=== PATIENT | female | born 1935 | race Caucasian/White ===

== ENCOUNTER 2019-11-04 22:13 | Inpatient (IN) | payer OTHER, MEDICARE ==
--- OUTSIDE RECORDS SUMMARY | 2019-11-04 22:16 | XMS REPORT ---
:1935 Author Organization [facility] t Address [address] [place] [address] Care Team Providers Name Role Phone Unavailable Unavailable Unavailable Problems This patient has no known problems. Allergies, Adverse Reactions, Alerts This patient has no known allergies or adverse reactions. Medications This patient has no known medications.
[2019-11-04] MEDS ORDERED: PROMETHAZINE INJ 25 MG/ML AMP ONE (22:53)
[2019-11-04] MEDS ORDERED: NA CHLORIDE 0.9% 1,000 ML ONE (22:54)
[2019-11-04 23:07] LABS: Absolute Lymphocytes (CBC) 1.6 K/uL (0.7-4.9); Basophils % 0.6 % (0-1.3); Hematocrit 43.1 % (36.0-45.0); Lymphocytes % 16.5 % (15.3-44.8); MPV 7.4 fL (7.6-11.3); RBC Red Blood Cell Count 4.92 M/uL (3.86-4.86)
[2019-11-04 23:24] LABS: Albumin 4.6 g/dL (3.4-5.0); Bilirubin Direct 0.2 mg/dL (0-0.2); Potassium 4.3 mmol/L (3.5-5.1); Protein, Total 9.1 g/dL (6.4-8.2)
[2019-11-05] MEDS ORDERED: FENTANYL CITR 100 MCG/2 ML ONE (01:07)
--- NOTE | 2019-11-05 01:52 | ER ---
Nurse's Notes [facility] Name: Adrienne Phelan Age: 84 yrs Sex: Female : 1935 Arrival Date: 11/04/2019 Time: 22:16 Bed 6 Private MD: Diagnosis: Small bowel obstruction Presentation: 11/03 22:24 Chief complaint: Patient states: N/V and abdominal cramping since last night. ll1 Coronavirus screen: Proceed with normal triage. Patient denies a cough. Patient denies shortness of breath or difficulty breathing. Patient denies measured and/or subjective temperature greater than 100.4F prior to today's visit. Patient denies travel on a cruise ship or to a country the [facility] currently lists as an affected area. Patient denies contact with known and/or suspected case of COVID-19. Ebola Screen: Patient denies travel to an Ebola-affected area in the 21 days before illness onset. Initial Sepsis Screen: Does the patient meet any 2 criteria? No. Patient's initial sepsis screen is negative. Does the patient have a suspected source of infection? No. Patient's initial sepsis screen is negative. Risk Assessment: Do you want to hurt yourself or someone else? Patient reports no desire to harm self or others. Onset of symptoms was November 03, 2019. 22:24 Method Of Arrival: Wheelchair ll1 22:24 Acuity: JASON 3 ll1 Historical: - Allergies: 22:27 PENICILLINS; ll1 22:27 Tetanus Vaccines and Toxoid; ll1 22:27 Codeine; ll1 - PMHx: 22:27 colostomy with reversal; Hypertension; cardiac stents 3; ll1 - Immunization history:: Adult Immunizations up to date. - Social history:: Smoking status: Patient denies any tobacco usage or history of. Patient uses alcohol, only on a social basis. Patient/guardian denies using street drugs. Screenin:10 Abuse screen: Denies threats or abuse. Nutritional screening: No deficits noted. tl2 Tuberculosis screening: No symptoms or risk factors identified. Fall Risk None identified. Assessment: 23:10 General: Appears in no apparent distress. uncomfortable, Behavior is anxious. Pain: tl2 Complains of pain in abdomen. Neuro: Level of Consciousness is awake, alert, obeys commands, Oriented to person, place, time, situation. Cardiovascular: Denies chest pain. Respiratory: Airway. GI: Abdomen is round Pt is actively vomiting bile, Abd is soft and non tender Reports lower abdominal pain, upper abdominal pain, flatulence, gaseousness, nausea, vomiting. : No signs and/or symptoms were reported regarding the genitourinary system. Derm: Skin is pink, warm \T\ dry. Vital Signs: 22:24 BP 106 / 62; Pulse 97; Resp 18; Temp 98.1; Pulse Ox 100% ; Weight 65.77 kg; Height 5 ll1 ft. 0 in. (152.40 cm); Pain 10/10; 23:54 BP 128 / 71; Pulse 92; Resp 22; Pulse Ox 96% on R/A; tl2 11/04 00:58 Pulse 85; Resp 22; Pulse Ox 96% on R/A; tl2 02:43 BP 123 / 77; Pulse 101; Resp 24; Pulse Ox 95% on R/A; tl2 03:21 BP 143 / 75; Pulse 102; Resp 20; Pulse Ox 97% on R/A; lp1 11/03 22:24 Body Mass Index 28.32 (65.77 kg, 152.40 cm) ll1 ED Course: 11/03 22:16 Patient arrived in ED. cl3 22:25 Triage completed. ll1 22:27 Arm band placed on Patient placed in an exam room, on a stretcher. ll1 22:34 Bianca Obando FNP-C is PHCP. snw 22:34 Pee Zhang MD is Attending Physician. snw 23:10 Patient has correct armband on for positive identification. Placed in gown. Bed in low tl2 position. Call light in reach. Side rails up X 1. 23:10 Inserted saline lock: 20 gauge in right antecubital area, using aseptic technique. tl2 Blood collected. 11/04 00:48 CT Abd/Pelvis - IV Contrast Only In Process Unspecified. EDMS 00:58 Shea Menezes RN is Primary Nurse. tl2 01:50 Princess Alexis MD is Hospitalizing Provider. snw 03:21 No provider procedures requiring assistance completed. Patient admitted, IV remains in lp1 place. Administered Medications: 11/03 22:59 Drug: Phenergan 6.25 mg Route: IVP; Site: right antecubital; tl2 22:59 Drug: NS 0.9% 1000 ml Route: IV; Rate: 75 ml/hr; Site: right antecubital; tl2 11/04 01:13 Drug: fentaNYL (PF) 25 mcg Route: IVP; Site: right antecubital; tl2 02:38 Drug: Cipro 400 mg Volume: 200 ml; Route: IVPB; Infused Over: 60 mins; Site: right tl2 antecubital; 02:38 Drug: Ativan 0.5 mg Route: IVP; Site: right antecubital; tl2 Outcome: 01:51 Decision to Hospitalize by Provider. snw 03:22 Condition: stable lp1 03:22 Instructed on the need for admit. 03:44 Admitted to Med/surg via stretcher, room 228, with chart, Report called to fermín Escalante RN 04:41 Patient left the ED. lp1 Signatures: Dispatcher [employer] EDMS Bianca Obando, BILINGUAL CASE MANAGER-C BILINGUAL CASE MANAGER-Csnw Radha Stone RN RN lp1 Shea Menezes, RN RN tl2 Rickie Vasquez cl3 Frances Vasquez, JUAN RN ll1
--- NOTE | 2019-11-05 01:52 | EDPHYS ---
Physician Documentation [facility] [place], [place] Name: Adrienne Phelan Age: 84 yrs Sex: Female : 1935 Arrival Date: 11/04/2019 Time: 22:16 Bed 6 Private MD: ED Physician Pee Zhang HPI: 11/03 22:36 This 84 yrs old Female presents to ER via Wheelchair with complaints of snw Vomiting, Abdominal Cramping. 22:36 The patient presents to the emergency department with nausea, vomiting. Onset: The snw symptoms/episode began/occurred suddenly, yesterday. Possible causes: unknown. Associated signs and symptoms: Pertinent positives: abdominal pain, belching, vomiting. Severity of symptoms: At their worst the symptoms were severe in the emergency department the symptoms are unchanged. The patient has not experienced similar symptoms in the past. It is unknown whether or not the patient has recently seen a physician. Historical: - Allergies: 22:27 PENICILLINS; ll1 22:27 Tetanus Vaccines and Toxoid; ll1 22:27 Codeine; ll1 - PMHx: 22:27 colostomy with reversal; Hypertension; cardiac stents 3; ll1 - Immunization history:: Adult Immunizations up to date. - Social history:: Smoking status: Patient denies any tobacco usage or history of. Patient uses alcohol, only on a social basis. Patient/guardian denies using street drugs. ROS: 22:36 Constitutional: Negative for fever, chills, and weight loss, Eyes: Negative for injury, snw pain, redness, and discharge, ENT: Negative for injury, pain, and discharge, Neck: Negative for injury, pain, and swelling, Cardiovascular: Negative for chest pain, palpitations, and edema, Respiratory: Negative for shortness of breath, cough, wheezing, and pleuritic chest pain, Back: Negative for injury and pain, : Negative for injury, bleeding, discharge, and swelling, MS/Extremity: Negative for injury and deformity, Skin: Negative for injury, rash, and discoloration, Neuro: Negative for headache, weakness, numbness, tingling, and seizure, Psych: Negative for depression, anxiety, suicide ideation, homicidal ideation, and hallucinations. 22:36 Abdomen/GI: Positive for abdominal pain, nausea and vomiting. Exam: 22:35 Constitutional: This is a well developed, well nourished patient who is awake, alert, snw and in no acute distress. Head/Face: Normocephalic, atraumatic. Eyes: Pupils equal round and reactive to light, extra-ocular motions intact. Lids and lashes normal. Conjunctiva and sclera are non-icteric and not injected. Cornea within normal limits. Periorbital areas with no swelling, redness, or edema. ENT: Nares patent. No nasal discharge, no septal abnormalities noted. Tympanic membranes are normal and external auditory canals are clear. Oropharynx with no redness, swelling, or masses, exudates, or evidence of obstruction, uvula midline. Mucous membranes moist. Neck: Trachea midline, no thyromegaly or masses palpated, and no cervical lymphadenopathy. Supple, full range of motion without nuchal rigidity, or vertebral point tenderness. No Meningismus. Chest/axilla: Normal chest wall appearance and motion. Nontender with no deformity. No lesions are appreciated. Cardiovascular: Regular rate and rhythm with a normal S1 and S2. No gallops, murmurs, or rubs. Normal PMI, no JVD. No pulse deficits. Respiratory: Lungs have equal breath sounds bilaterally, clear to auscultation and percussion. No rales, rhonchi or wheezes noted. No increased work of breathing, no retractions or nasal flaring. 22:35 Back: No spinal tenderness. No costovertebral tenderness. Full range of motion. Skin: Warm, dry with normal turgor. Normal color with no rashes, no lesions, and no evidence of cellulitis. MS/ Extremity: Pulses equal, no cyanosis. Neurovascular intact. Full, normal range of motion. Neuro: Awake and alert, GCS 15, oriented to person, place, time, and situation. Cranial nerves II-XII grossly intact. Motor strength 5/5 in all extremities. Sensory grossly intact. Cerebellar exam normal. Normal gait. Psych: Awake, alert, with orientation to person, place and time. Behavior, mood, and affect are within normal limits. 22:35 Abdomen/GI: Inspection: distension, Bowel sounds: diminished, Palpation: mild abdominal tenderness, projectile vomiting on exam. Vital Signs: 22:24 BP 106 / 62; Pulse 97; Resp 18; Temp 98.1; Pulse Ox 100% ; Weight 65.77 kg; Height 5 ll1 ft. 0 in. (152.40 cm); Pain 04/06; 23:54 BP 128 / 71; Pulse 92; Resp 22; Pulse Ox 96% on R/A; tl2 11/04 00:58 Pulse 85; Resp 22; Pulse Ox 96% on R/A; tl2 02:43 BP 123 / 77; Pulse 101; Resp 24; Pulse Ox 95% on R/A; tl2 03:21 BP 143 / 75; Pulse 102; Resp 20; Pulse Ox 97% on R/A; lp1 11/03 22:24 Body Mass Index 28.32 (65.77 kg, 152.40 cm) ll1 MDM: 11/03 22:38 Patient medically screened. snw 11/04 01:51 Data reviewed: vital signs, nurses notes, lab test result(s), radiologic studies. Data snw interpreted: Pulse oximetry: on room air is 96 %. Interpretation: normal. Counseling: I had a detailed discussion with the patient and/or guardian regarding: the historical points, exam findings, and any diagnostic results supporting the discharge/admit diagnosis, lab results, radiology results, the need for further work-up and treatment in the hospital. Physician consultation: Princess Alexis MD was called at 01:52, was contacted at 01:52, regarding admission, to the telemetry unit. 01:52 Physician consultation: Jacques Butler MD was called at 01:52, was contacted at 01:52, snw regarding consult, Dr. Butler accept pt in consult. 11/03 22:35 Order name: Basic Metabolic Panel; Complete Time: 23:33 snw 11/03 22:35 Order name: CBC with Diff; Complete Time: 23:25 snw 11/03 22:35 Order name: Creatinine for Radiology; Complete Time: 23:25 snw 11/03 22:35 Order name: Hepatic Function; Complete Time: 23:33 snw 11/03 22:35 Order name: Lipase; Complete Time: 23:33 snw 11/04 02:57 Order name: CBC with Automated Diff EDMS 11/04 02:57 Order name: CBC with Automated Diff EDMS 11/04 02:57 Order name: Comprehensive Metabolic Panel EDMS 11/04 02:57 Order name: Comprehensive Metabolic Panel EDMS 11/04 02:57 Order name: Magnesium EDMS 11/04 02:57 Order name: Magnesium EDMS 11/04 02:57 Order name: Phosphorus EDMS 11/04 02:57 Order name: Phosphorus EDMS 11/04 02:57 Order name: Protime (+INR) EDMS 11/03 22:35 Order name: IV Saline Lock; Complete Time: 22:59 snw 11/03 22:35 Order name: Labs collected and sent; Complete Time: 22:59 snw 11/03 22:35 Order name: NG Tube; Complete Time: 02:38 snw 11/03 22:35 Order name: CT Abd/Pelvis - IV Contrast Only snw 11/04 02:57 Order name: CONS Physician Consult EDMS 11/04 02:57 Order name: NPO EDMS 11/04 02:57 Order name: Protime (+INR) EDMS 11/04 02:57 Order name: PTT, Activated Partial Thromb EDMS 11/04 02:57 Order name: PTT, Activated Partial Thromb EDMS Administered Medications: 11/03 22:59 Drug: Phenergan 6.25 mg Route: IVP; Site: right antecubital; tl2 22:59 Drug: NS 0.9% 1000 ml Route: IV; Rate: 75 ml/hr; Site: right antecubital; tl2 11/04 01:13 Drug: fentaNYL (PF) 25 mcg Route: IVP; Site: right antecubital; tl2 02:38 Drug: Cipro 400 mg Volume: 200 ml; Route: IVPB; Infused Over: 60 mins; Site: right tl2 antecubital; 02:38 Drug: Ativan 0.5 mg Route: IVP; Site: right antecubital; tl2 Disposition: 11/05/19 01:51 Hospitalization ordered by Princess Alexis for Inpatient Admission. Preliminary diagnosis is Small bowel obstruction. - Bed requested for Telemetry/MedSurg (Inpatient). - Status is Inpatient Admission. lp1 - Condition is Stable. - Problem is new. - Symptoms are unchanged. Addendum: 11/06/2019 07:14 Co-signature as Attending Physician, Pee Zhang MD I agree with the assessment and m h7 plan of care. Signatures: Dispatcher [facility] Nancy Hernandez RN RN Bianca Durbin, FRICTION WELDING MACHINE OPERATOR-C FRICTION WELDING MACHINE OPERATOR-Csnw Radha Stone, RN RN lp1 Shea Menezes, RN RN tl2 Frances Vasquez, JUAN RN ll1 Pee Zhang MD MD mh7 Corrections: (The following items were deleted from the chart) 11/04 03:13 01:51 Hospitalization Ordered by Princess Alexis MD for Inpatient Admission. Preliminary mw diagnosis is Small bowel obstruction. Bed requested for Telemetry/MedSurg (Inpatient). Status is Inpatient Admission. Condition is Stable. Problem is new. Symptoms are unchanged. snw 04:41 03:13 11/05/2019 01:51 Hospitalization Ordered by Princess Alexis MD for Inpatient lp1 Admission. Preliminary diagnosis is Small bowel obstruction. Bed requested for Telemetry/MedSurg (Inpatient). Status is Inpatient Admission. Condition is Stable. Problem is new. Symptoms are unchanged. mw
[2019-11-05] MEDS ORDERED: LORazepam 2 MG/ML VIAL ONE (02:34)
[2019-11-05] MEDS ORDERED: CIPROFLOXACIN 400mg IV 400 MG/200 ML BAG IV ONE (02:35)
[2019-11-05] MEDS ORDERED: ACETAMINOPHEN 500 MG TAB PO PRN (02:53)
[2019-11-05] MEDS ORDERED: Levofloxacin500mg IV 500 MG/100 ML BAG IV SCH (03:00)
[2019-11-05 05:17] VITALS: BMI 28.3
[2019-11-05] MEDS: NA CHLORIDE 0.9% 1,000 ML IV SCH ×2 (05:19→13:00)
[2019-11-05] MEDS: METRONIDAZOLE 500mg IVPB 500 MG/100 ML BAG IV SCH ×3 (05:19→17:26)
[2019-11-05] MEDS: ONDANSETRON 4 MG/2 ML VIAL IV PRN (05:23)
[2019-11-05] MEDS: HYDROMORPHONE HCL 1 MG/ML INJ IV PRN ×2 (05:24→15:03)
[2019-11-05] MEDS: ENOXAPARIN 40 MG/0.4 ML SQ SCH (09:00)
--- NOTE | 2019-11-05 10:44 | P.HP ---
Certification for Inpatient Patient admitted to: Inpatient With expected LOS: >2 Midnights Patient will require the following post-hospital care: None Practitioner: I am a practitioner with admitting privileges, knowledge of patient current condition, hospital course, and medical plan of care. Services: Services provided to patient in accordance with Admission requirements found in Title 42 Section 412.3 of the Code of Federal Regulations Patient History Date of Service: 11/05/19 Reason for admission: SBO History of Present Illness: Patient is an 84-year-old female who came to the hospital with intractable nausea & vomiting. Patient has a history of abdominal surgery. Patient had extensive surgery. Patient has been having some issues over the last 24 hr with abdominal discomfort. Patient started having nausea and vomiting. This was projectile. Patient came to the emergency room and required NG tube. Patient's CT scan performed which revealed a transition point in the left anterior abdomen. There was a prior abdominal wall hernia in that region. Patient will be admitted to the hospital for small bowel obstruction. Continue NGT with low intermittent wall suctioning. General surgery consultation as well Allergies codeine [Codeine] Allergy (Verified 11/05/19 05:19) Nausea/Vomiting Penicillins Allergy (Verified 11/05/19 05:19) Nausea/Vomiting Tetanus Vaccines and Toxoid [Tetanus Vaccines & Toxoid] Allergy (Verified 11/05/19 05:19) Anaphylaxis Home Medications: Clopidogrel Bisulfate [Plavix] 75 mg PO DAILY 08/06/14 Atorvastatin Calcium [Lipitor] 80 mg PO BEDTIME 11/05/19 LORazepam [Lorazepam] 0.5 mg PO BID 11/05/19 Lisinopril [Zestril] 10 mg PO BEDTIME 11/05/19 Metoprolol Tartrate [Lopressor] 25 mg PO DAILY 11/05/19 - Past Medical/Surgical History Has patient received pneumonia vaccine in the past: Yes Diabetic: No -: heart stents x3 -: hypertensive -: bowel surgery -: colostomy reversal 2007 - Family History Father Family History: Reviewed- Non-Contributory - Social History Smoking Status: Never smoker Alcohol use: No CD- Drugs: No Place of Residence: Home Review of Systems 10-point ROS is otherwise unremarkable Physical Examination - Vital Signs Temperature: 98.2 F Blood Pressure: 132/69 Pulse: 87 Respirations: 18 Pulse Ox (%): 96 - Physical Exam General: Alert, In no apparent distress, Oriented x3 HEENT: Atraumatic, PERRLA, Mucous membr. moist/pink, EOMI, Sclerae nonicteric Neck: Supple, 2+ carotid pulse no bruit, No LAD, Without JVD or thyroid abnormality Respiratory: Clear to auscultation bilaterally, Normal air movement Cardiovascular: Regular rate/rhythm, Normal S1 S2, No murmurs Gastrointestinal: No guarding, Absent bowel sounds, Distended, Tenderness, Rebound Musculoskeletal: No clubbing, No swelling, No tenderness Integumentary: No rashes Neurological: Normal gait, Normal speech, Normal tone, Sensation intact, Cranial nerves 3-12 intact, Normal affect, Abnormal strength Lymphatics: No axilla or inguinal lymphadenopathy - Studies Laboratory Data (last 24 hrs) 11/04/19 22:58: Creatinine 1.18 11/04/19 22:58: WBC 9.9, Hgb 13.9, Hct 43.1, Plt Count 325 11/04/19 22:58: Sodium 133 L, Potassium 4.3, BUN 31 H, Creatinine 1.20, Glucose 141 H, Total Bilirubin 1.0, AST 24, ALT 21, Alkaline Phosphatase 88, Lipase 147 Assessment & Plan - Problems (Diagnosis) (1) SBO (small bowel obstruction) Current Visit: Yes Status: Acute (2) Hypertension Current Visit: Yes Status: Acute (3) Coronary artery disease Current Visit: Yes Status: Acute (4) History of intravascular stent placement Current Visit: Yes Status: Acute - Plan -management per surgery -DVT prophylaxis -IV hydration and IV antibiotics -NGT to LIWS -strict blood pressure and blood sugar control -monitor electrolytes and blood count closely -Dc Munoz catheter in 24-48 hrS -pain control -continue cardiac medications Discharge Plan: Home Plan to discharge in: Greater than 2 days - Advance Directives Does patient have a Living Will: No Does patient have a Durable POA for Healthcare: No - Code Status/Comfort Care Code Status Assessed: Yes Code Status: Full Code Critical Care: No Time Spent Managing PTS Care (In Minutes): 45
[2019-11-05] MEDS ORDERED: Levofloxacin500mg IV 500 MG/100 ML BAG IV ONE (15:00)
--- NOTE | 2019-11-05 16:02 | CON ---
Date of Consultation: 11/05/2019 Reason For Service: Small bowel obstruction. History Of Present Illness: Ms. Phelan is a female, known to have multiple surgeries in the abdomen , initially had a colectomy, partial, done in [place] due to diverticulitis. Patient had an ostomy. Then, patient had reversal of that ostomy and then subsequently had a midline incision for a large v entral hernia repair. She has been doing okay for the last year or so and now developed abdominal di stention and nausea for the last 24 hours. She says that she ate something different. She was eatin g vegetables and also a cantaloupe. Immediately after that, she started feeling bloated and this mor khurram she did not improve, so she came to the ER. She was admitted with bowel obstruction. She denie s any dysuria, hematuria, hematochezia, or melena. Denies any recent traveling out of the country. Denies any family member sick at home. Previous colonoscopies, patient has colonoscopy with biopsy t o be tubular adenoma. Review of Systems: Ten points otherwise unremarkable. Past Surgical History: As above. Family History: Kidney cancer and heart disease. Allergies: PENICILLIN AND CODEINE. Past Medical History: High cholesterol. Once again, multiple bowel surgeries, polyposis coli. Physical Examination: General: Patient is awake and alert. HEENT: Pupils are equal and reactive, anicteric. Nose with NG tube in place. Neck: Supple. Lungs: Bilateral breath sounds. Abdomen: Softly distended. No peritonitis. Mild generalized tenderness. Pelvis: Stable. Genitalia: Fair. Extremities: Good capillary refill. Rectal: Deferred. Laboratory Data: Blood work shows a WBC count of 9.2, hemoglobin of 13.9, potassium 4.3. CAT scan of the abdomen and pelvis shows small bowel obstruction. Plan: NG tube, ambulation, bowel rest, hydration. Patient understands the options of laparotomy, po ssible resection, possible ostomy in her case. With multiple abdominal surgeries, she understands th e complexity of the situation but it sometimes have to be done. At this moment, she wants to give a try to conservative treatment for the next 48-72 hours unless clinically she deteriorates. If not, t hen she is going to have to reconsider once again surgery, although complex, may be necessary. She u ashlee. MOHSEN Voice ID: [id number] Report ID: [id number]
[2019-11-05] MEDS ORDERED: LORazepam 2 MG/ML VIAL IV SCH (21:00)
[2019-11-05] MEDS: LORazepam 2 MG/ML VIAL IV PRN (21:01)
--- NOTE | 2019-11-05 21:26 | RAD REPORT ---
EXAM DESCRIPTION: CT ABDOMEN PELVIS WITH IV CONTRAST COMPARISON: None Indication: Abdominal pain TECHNIQUE: Multiple helical axial images were obtained through the abdomen and pelvis using intraven ous contrast. Coronal and sagittal reformatted images were obtained. All CT scans at this facility use dose modulation, iterative reconstruction, and/or weight-based dosi ng when appropriate to reduce radiation dose to as low as reasonably achievable. FINDINGS: Lung bases: Coronary artery atherosclerosis is noted. There is a 5 mm nodule in the right lower lobe (series 401, image 5). Liver: Homogenous attenuation is noted. Gallbladder/biliary: Appears unremarkable Pancreas: Unremarkable. No evidence of ductal enlargement. Spleen: Appears unremarkable. No splenomegaly. Adrenals: Unremarkable. Kidneys and ureters: No evidence of hydronephrosis. Normal enhancement. Subcentimeter hypodensity i n the mid pole of the right kidney is present too small to characterize. Bladder: Unremarkable. Pelvic organs: Unremarkable. Bowel: Multiple dilated loops of small bowel are demonstrated with fluid and air-fluid levels. There is an abrupt transition between dilated and decompressed small bowel loops in the left anterior abdom en in the region of left ventral abdominal wall hernia repair compatible with small bowel obstruction with fecalization of a loop of small bowel proximal to the transition point. No bowel wall thicken ing. Appendix is not well seen. Vasculature: Aortic atherosclerosis is demonstrated. There is a 3 cm infrarenal abdominal aortic aneu rysm. Peritoneum: No free air. There is trace ascites. Lymph nodes: Unremarkable. Soft tissues: There are changes of the left ventral abdominal wall hernia repair with mild protrusion of the hernia mesh and small bowel loops. Bones: Degenerative changes of the spine noted. IMPRESSION: 1. Findings compatible with small bowel obstruction with transition point in the left anterior abdome n at the site of prior abdominal wall hernia repair. 2. 3.0 cm abdominal aortic aneurysm. Recommend follow-up every 3 years. Reference: J Am Zoila Radiol 2 013;10:789-794. 3. Right lower lobe 5 mm nodule. For a high risk patient, optional followup chest CT in 1 year is rec ommended per Fleischner Society criteria. Electronically signed by: Francisco J Hood MD 11/05/2019 1:26 AM CDT Due to temporary technical issues with the PACS/Fluency reporting system, reports are being signed by the in house radiologist as a courtesy to ensure prompt reporting. The interpreting radiologist is f ully responsible for the content of the report.
[2019-11-06] MEDS: METRONIDAZOLE 500mg IVPB 500 MG/100 ML BAG IV SCH ×5 (00:14→23:30)
[2019-11-06] MEDS: ONDANSETRON 4 MG/2 ML VIAL IV PRN (01:17)
[2019-11-06] MEDS: HYDROMORPHONE HCL 1 MG/ML INJ IV PRN ×3 (01:19→17:53)
[2019-11-06] MEDS: NA CHLORIDE 0.9% 1,000 ML IV SCH ×4 (01:28→21:26)
[2019-11-06 05:49] LABS: Absolute Lymphocytes (CBC) 1.2 K/uL (0.7-4.9); Basophils % 0.4 % (0-1.3); Hematocrit 37.3 % (36.0-45.0); MPV 7.1 fL (7.6-11.3); RBC Red Blood Cell Count 4.26 M/uL (3.86-4.86)
[2019-11-06 06:02] LABS: Albumin 3.7 g/dL (3.4-5.0); Bilirubin Total 0.9 mg/dL (0.2-1.0); Magnesium 2.1 mg/dL (1.8-2.4); Phosphorus 3.9 mg/dL (2.5-4.9); Potassium 4.4 mmol/L (3.5-5.1)
[2019-11-06 06:09] LABS: Protime INR 1.18
[2019-11-06 06:38] LABS: Platelet Estimate ADEQ
[2019-11-06 06:39] LABS: Blood Morphology Comment NOT SEEN (NOT SEEN)
--- NOTE | 2019-11-06 08:38 | RAD REPORT ---
EXAM DESCRIPTION: RAD - Abdomen Single View - 11/06/2019 6:17 am CLINICAL HISTORY: f/u SBO Pain COMPARISON: Abdomen Pelvis W Contrast dated 11/05/2019 FINDINGS: Several fluid-filled small bowel loops suspected however bowel obstruction pattern appears improved since prior study. Tip of the enteric tube is in the stomach. Contrast is present in the ur inary bladder. No free air seen. No fracture. IMPRESSION: Moderate improvement in small bowel obstruction pattern since comparative CT scan.
[2019-11-06] MEDS: ENOXAPARIN 40 MG/0.4 ML SQ SCH (08:43)
--- NOTE | 2019-11-06 12:29 | P.PN ---
Subjective Date of Service: 11/06/19 Chief Complaint: SBO Subjective: Improving <Jason Pacheco Last Filed: 11/06/19 12:22> Date of Service: 11/06/19 Subjective: Other (Patient doing better. Less pain noted no bowel movement or passage of gas.) <Tez Gupta Last Filed: 11/06/19 17:19> Review of Systems General: Unremarkable Eyes: Unremarkable ENT: Unremarkable Respiratory: Unremarkable Cardiovascular: Unremarkable Gastrointestinal: Abdominal Pain, Distention Genitourinary: Unremarkable Integumentary: Unremarkable Neurological: Unremarkable <Jason Pacheco Filed: 11/06/19 12:22> Physical Examination - Vital Signs Temperature: 98.2 F Blood Pressure: 132/69 Pulse: 87 Respirations: 18 Pulse Ox (%): 96 - Physical Exam General: Alert, In no apparent distress, Oriented x3 HEENT: Atraumatic, Normocephalic Neck: Supple Respiratory: Clear to auscultation bilaterally, Normal air movement Capillary refill: <2 Seconds Gastrointestinal: Hypoactive, Distended, Tenderness Neurological: Normal tone <Jason Pacheco Filed: 11/06/19 12:22> - Physical Exam Cardiovascular: Normal pulses, Regular rate/rhythm Gastrointestinal: Hypoactive, Distended Neurological: Normal speech, Normal strength at 5/5 x4 extr, Normal affect Other Physical/Emotional Findings: Patient seen and examined with nurse practitioner. - Studies Medications List Reviewed: Yes <Tez Gupta Last Filed: 11/06/19 17:19> Assessment & Plan Discharge Plan: Home Plan to discharge in: 72 Hours Physician Review Additional Text: Assessment Small bowel obstruction with history of multiple abdominal surgeries Hypertension Coronary artery disease Plan Small bowel obstruction with history of multiple abdominal surgeries- patient is to maintain her NPO status at this time, NG tube in place to low intermittent suction. IV hydration in place. General surgery has been consulted. KUB from this morning shows moderate improvement in patient's small-bowel obstruction, plan is to have a small bowel series tomorrow morning. Will continue to monitor this closely. Patient would much prefer to manage not operatively if at all possible. Patient has not passed any gas or had a bowel movement at this time. Will turn patient's case over to the hospitalist team tomorrow. Continue to DVT prophylaxis. Await further input from general surgery this time. Hypertension- will continue patient's home medications. Coronary artery disease- will continue patient's home medications. Time Spent Managing Pts Care (In Minutes): 55 <Jason Pacheco - Last Filed: 11/06/19 12:22> Discharge Plan: Home Plan to discharge in: 72 Hours Physician Review Additional Text: Patient seen and examined with nurse practitioner. Case discussed at length. Plan of care discussed. KUB ordered by surgery shows improvement. Surgery plans for GI series tomorrow to further evaluate. Patient is ambulating well. Patient overall improved but no passage of gas or stool. Anticipate improvement over the next 24-48 hr. Await further recommendations from surgery. <Tez Gupta - Last Filed: 11/06/19 17:19>
[2019-11-06] MEDS: Levofloxacin 250mg IV 250 MG/50 ML BAG IV SCH (16:59)
[2019-11-06] MEDS: LORazepam 2 MG/ML VIAL IV PRN (19:31)
[2019-11-07] MEDS: LORazepam 2 MG/ML VIAL IV PRN ×2 (02:38→20:14)
[2019-11-07 04:19] LABS: Absolute Lymphocytes (CBC) 1.1 K/uL (0.7-4.9); Basophils % 0.6 % (0-1.3); Hematocrit 33.6 % (36.0-45.0); Lymphocytes % 23.4 % (15.3-44.8); RBC Red Blood Cell Count 3.81 M/uL (3.86-4.86)
[2019-11-07 04:26] LABS: Potassium 3.6 mmol/L (3.5-5.1)
[2019-11-07] MEDS: METRONIDAZOLE 500mg IVPB 500 MG/100 ML BAG IV SCH ×3 (06:10→17:11)
[2019-11-07] MEDS: NA CHLORIDE 0.9% 1,000 ML IV SCH ×2 (06:24→15:00)
[2019-11-07] MEDS ORDERED: KCL 20 MEQ/100 mL IVPB 20 MEQ/100 ML BAG IV SCH (07:30)
[2019-11-07] MEDS ORDERED: ENOXAPARIN 30 MG/0.3 ML SQ SCH (09:00)
[2019-11-07] MEDS: HYDROMORPHONE HCL 1 MG/ML INJ IV PRN (10:52)
--- NOTE | 2019-11-07 14:14 | RAD REPORT ---
EXAM DESCRIPTION: RAD - Small Bowel Series - 11/07/2019 1:48 pm CLINICAL HISTORY: small bowel obstruction COMPARISON: Abdomen Single View dated 11/06/2019; Abdomen Pelvis W Contrast dated 11/05/2019 FINDINGS: Transportation Maintenance Supervisor film shows a nonspecific bowel gas pattern. No obstruction or free air. No suspiciou s calcifications. NG tube is in place. Tip is in the proximal body of the stomach. Side hole of the t ube is near the GE junction. Lower lumbar degenerative changes are present. Numerous surgical coils are present left mid abdomen a t the hernia site. Stomach is distended by the contrast but not dilated. No abnormal gastric fold pattern. No delay in t ransit of contrast into the small bowel. Dilated proximal small bowel loops are identified. Of the sm all bowel dilatation extends up into the left mid abdomen hernia site. Small bowel distal to the aggie ia site decompressed in size. The degree of dilatation is similar to the November [address] CT study. Oral contra st has reached the colon approximately 3 hours after initial administration. Contrast reached the mid descending colon at 3.5 hours. No intrinsic or extrinsic mass identifiable. Terminal ileum has mishel l appearance. Transit time to the colon is prolonged. IMPRESSION: Multiple dilated small bowel loops are present similar to the November 04 CT study. Dilatation extends from the ligament of Treitz to the left mid abdomen hernia site. Contrast does reach the colon at approximately 3 hours and the mid descending left-side of the colon at 3.5 hours.
[2019-11-07] MEDS: ENOXAPARIN 40 MG/0.4 ML SQ SCH (14:16)
[2019-11-07] MEDS: Levofloxacin 250mg IV 250 MG/50 ML BAG IV SCH (17:11)
--- NOTE | 2019-11-07 19:49 | PN ---
Date of Progress Note: 11/07/2019 Subjective: The patient seen and examined, chart reviewed, and case discussed with RN and Dr. Chris rizvi. Patient is doing better, had some small bowel movement, which was loose. Has passed some gas. Went for small bowel series today which showed contrast reached the colon. Medications: List reviewed. Code Status: Full. Physical Examination: Vital Signs: Temperature 97.8, heart rate 77, blood pressure 156/74, respirations 18, O2 of 95% on r oom air. General: Awake, alert, oriented x3. Elderly female, mild distress, ill appearing. Cardiovascular: S1, S2. Regular rate and rhythm. Peripheral pulses present. Respiratory: Moving air well bilaterally. No wheezing or stridor. Gastrointestinal: Abdomen is soft, nontender, nondistended. Positive bowel sounds. Extremities: No clubbing, cyanosis, or edema. Neurologic: Nonfocal. Laboratory Data: Sodium 143, potassium 3.6, chloride 111, CO2 of 24, BUN 31, creatinine 0.7, glucose 91, calcium 8.3, magnesium 2. WBC 4.6, H and H 11.2 and 33.6, platelets 238. INR 1.18. Small jayro l series shows multiple dilated small bowel loops present similar to November 12 study. The dilatation ex tends from ligament of Treitz to the left mid abdomen hernia site. Contrast does reach the colon in approximately 3 hours and mid descending left side of the colon at 3-1/2 hours. Assessment: 84-year-old female with, 1.Small-bowel obstruction with history of multiple abdominal surgeries. Patient is passing gas, had small bowel movement. The small bowel series was done today shows contrast into the colon. Case wa s discussed with Dr. Butler including the small bowel series results. He recommends a clear liquid diet for tonight and to see how the patient tolerates it. 2.Essential hypertension, stable. Continue home medications as appropriate. 3.Coronary artery disease, stable. 4.Deep venous thrombosis prophylaxis, Lovenox. Plan: Continue IV antibiotics. We will continue to monitor status. Continue clear liquids for now and reassess in a.m. SA/MODL Voice ID: [id number] Report ID: [id number]
[2019-11-07] MEDS: ONDANSETRON 4 MG/2 ML VIAL IV PRN (20:14)
[2019-11-08] MEDS: METRONIDAZOLE 500mg IVPB 500 MG/100 ML BAG IV SCH ×4 (00:03→17:27)
[2019-11-08] MEDS: NA CHLORIDE 0.9% 1,000 ML IV SCH ×3 (02:05→13:19)
[2019-11-08] MEDS: LORazepam 2 MG/ML VIAL IV PRN ×2 (04:48→21:13)
[2019-11-08 05:28] LABS: Absolute Lymphocytes (CBC) 0.9 K/uL (0.7-4.9); Basophils % 0.8 % (0-1.3); Hematocrit 31.6 % (36.0-45.0); Lymphocytes % 18.6 % (15.3-44.8); MPV 6.9 fL (7.6-11.3); RBC Red Blood Cell Count 3.61 M/uL (3.86-4.86)
[2019-11-08 05:48] LABS: BUN Blood Urea Nitrogen 15 mg/dL (7-18); Bicarbonate 23 mmol/L (21-32); Glucose Level 102 mg/dL (74-106); Magnesium 1.7 mg/dL (1.8-2.4); Sodium Level 141 mmol/L (136-145)
[2019-11-08] MEDS: POTASSIUM 25 MEQ EFFERV TAB PO ONE ×2 (06:41→06:55)
[2019-11-08] MEDS ORDERED: MAGNESIUM SULFATE 1 gm IVPB 1 GM/100 ML BAG IV ONE (09:00)
[2019-11-08] MEDS: ENOXAPARIN 40 MG/0.4 ML SQ SCH (09:42)
[2019-11-08] MEDS: KCL 20 MEQ/100 mL IVPB 20 MEQ/100 ML BAG IV SCH ×2 (09:42→13:20)
--- NOTE | 2019-11-08 16:32 | PN ---
Date of Progress Note: 11/08/2019 Subjective: Patient is seen and examined. Chart reviewed and case discussed with RN and Dr. Steff james. Patient was able to tolerate clear liquids yesterday. No nausea or vomiting. NG tube came out b ecause she was repeatedly sneezing. Medications: List reviewed. Physical Examination: Vital Signs: Temperature 97.9, heart rate 64, blood pressure 148/75, respirations 16, O2 of 98% on r oom air. General: Awake, alert, oriented x3. Elderly female, not in any acute distress. CV: S1, S2. Regular rate and rhythm. Peripheral pulses present. Respiratory: Moving air well bilaterally. No wheezing or stridor. Gastrointestinal: Abdomen is soft, nontender, nondistended. Hypoactive bowel sounds. Extremities: No clubbing, cyanosis, or edema. Neurologic: Nonfocal. Laboratory Data: Sodium 141, potassium 3, chloride 111, CO2 of 23, BUN 15, creatinine 0.54, glucose 102, calcium 7.8, magnesium 1.7. WBC 4.7, H and H 10.5 and 31.6, platelets 238, neutrophils 65%. Assessment: 84-year-old female with: 1.Small bowel obstruction with history of multiple abdominal surgeries. Patient has complicated abd ominal anatomy. Patient is passing gas and having small bowel movements. Small bowel series showed contrast into the colon and patient is tolerating clear liquids. Case was discussed with Dr. Steff james. He agrees with advancing to full liquids for now. We will continue with antiemetics and IV fluid s as well as IV antibiotics. 2.Essential hypertension, stable. 3.Coronary artery disease, [place] artery and [place] heart without angina, stable. 4.Hypokalemia. We will replace and monitor. 5.Hypomagnesemia. We will replace and monitor. 6.Deep venous thrombosis prophylaxis with Lovenox. Plan: Likely discharge in a.m. if continues to tolerate diet. We will likely advance to GI soft in the morning. SA/MODL Voice ID: [id number] Report ID: [id number]
[2019-11-08] MEDS: Levofloxacin 250mg IV 250 MG/50 ML BAG IV SCH (17:28)
[2019-11-08] MEDS: POTASSIUM CL SA 10 MEQ TAB PO ONE ×2 (19:42→20:21)
[2019-11-08] MEDS: ONDANSETRON 4 MG/2 ML VIAL IV PRN (20:22)
[2019-11-08] MEDS ORDERED: POTASSIUM 25 MEQ EFFERV TAB PO ONE (20:24)
[2019-11-08] MEDS ORDERED: KCL 20 MEQ/100 mL IVPB 20 MEQ/100 ML BAG IV SCH (22:00)
[2019-11-09] MEDS: METRONIDAZOLE 500mg IVPB 500 MG/100 ML BAG IV SCH ×3 (00:34→11:58)
[2019-11-09] MEDS: NA CHLORIDE 0.9% 1,000 ML IV SCH ×2 (00:41→05:36)
--- NOTE | 2019-11-09 03:48 | PN ---
Date of Progress Note: 11/08/2019 Reason For Service: Small bowel obstruction. History: Patient is doing better. Today she tolerated clear liquid diet. No nausea, no vomiting. Physical Examination: Chest: Clear. Abdomen: Soft and depressible. No guarding or rebound. Review of Systems: Ten-points otherwise unremarkable. Patient had a bowel movement today and some flatus. The small bowel series was interpreted by Dr. Brewer as multiple dilated small bowel loops. The con trast does reach the colon in about 3 hours. Also goes to the descending colon. Patient has history of colectomy in the past. Assessment: This is an 84-year-old patient with extensive intraabdominal surgery, feels better, pass ing flatus, having good bowel movement. She does not want surgery unless she is completely obstructe d, she is not. She feels better. Abdomen is nondistended. She wants to have a trial of diet. She understands that if that fails then she may have to reconsider once again surgical intervention, so t he diet will be advanced since she is tolerating diet right now. LOAN/MARIAN Voice ID: [id number] Report ID: [id number]
[2019-11-09 05:39] LABS: BUN Blood Urea Nitrogen 6 mg/dL (7-18); Bicarbonate 23 mmol/L (21-32); Glucose Level 107 mg/dL (74-106); Magnesium 1.6 mg/dL (1.8-2.4); Phosphorus 1.4 mg/dL (2.5-4.9); Potassium 3.7 mmol/L (3.5-5.1); Sodium Level 140 mmol/L (136-145)
[2019-11-09] MEDS ORDERED: MAGNESIUM SULFATE 1 gm IVPB 1 GM/100 ML BAG IV ONE (07:00)
[2019-11-09] MEDS: ENOXAPARIN 40 MG/0.4 ML SQ SCH (08:15)
[2019-11-09] MEDS ORDERED: POTASSIUM PHOS IN 0.9 % NACL 15 MMOL/250 ML BAG IV ONE (09:00)
--- NOTE | 2019-11-09 09:30 | PN ---
Date of Progress Note: 11/09/2019 Diagnosis: Small-bowel obstruction. Subjective: Patient feeling better. Passing flatus, having bowel movement. Today, she is trying a soft diet. No abdominal pain. No chest pain. No fever. No shortness of breath. Review of Systems: 10 points otherwise unremarkable. Physical Examination: Abdomen: Soft and depressible. No peritonitis. Extremities: Good capillary refill. Small-bowel series discussed with the patient. Plan: Patient wants to continue trying diet. She wants to go home. She is going to promise she is going to be on a pureed diet at home. in a week in the office. If she starts vomiting an d she does not tolerate diet, once again she has to reconsider the option of surgical intervention. LOAN/MARIAN Voice ID: [id number] Report ID: [id number]
[2019-11-09 10:02] VITALS: O2SAT 97
[2019-11-09 13:29] VITALS: BP 136/80; TEMP 98.3
--- NOTE | 2019-11-10 02:54 | DS ---
Date of Discharge: 11/09/2019 Consultants: Dr. Butler, General Surgery. Procedures: None. Admitting Diagnoses: 1.Small bowel obstruction. 2.Essential hypertension. 3.Coronary artery disease, [place] artery, [place] heart without angina. 4.History of bowel surgery. Discharge Diagnoses: 1.Small bowel obstruction with history of multiple abdominal surgeries, resolved. 2.Essential hypertension, stable. 3.Coronary artery disease, [place] artery, [place] heart without angina, stable. 4.Hypokalemia, replaced. 5.Hypomagnesemia, replaced. Hospital Course: The patient is an 84-year-old female with past medical history of heart disease, hy pertension, stents, comes in with intractable nausea and vomiting. She has had history of previous a bdominal surgeries, colostomy with reversal hernia and was found to have small-bowel obstruction on C AT scan. NG tube was placed and the patient was started on suctioning. Surgical consultation was ob tained, Dr. Butler evaluated the patient, he recommended conservative management. Patient's repeat x-ray showed improvement, she had a small bowel series. She was able to pass gas and contrast has r eached the colon. Patient was started on clear liquids and slowly advanced to pureed diet. Patient has bad teeth and does not have good dentures, is not really able to chew her food well. She was ins tructed to be on a pureed diet. The patient's pain improved. She was able to pass gas. Her electro lytes were corrected. Patient was then cleared for discharge and was sent home in a stable condition . Activity: As tolerated. Medications: As per medication reconciliation list. Followup: Follow up with primary care physician in 2-3 days. Follow up with surgeon, Dr. Luke morris 2 weeks. Return to ER for worsening condition. Diet: Puree. Activity: Ad marge. Physical Examination: General: Awake, alert, and oriented x3, not in any acute distress, elderly female. CV: S1, S2. Respiratory: Moving air well bilaterally. Abdomen: Abdomen is soft, nontender, nondistended. Positive bowel sounds. Extremities: No clubbing, cyanosis, or edema. Neurologic: Nonfocal. Total time spent discharging patient was 32 minutes. SA/MODL Voice ID: [id number] Report ID: [id number]
== END 2019-11-09 13:38 | disposition home or self-care (01) | DRG 390 ==
LOC: ER 22:13 → ERHOLD 11-05 02:58 → 2ND 11-05 03:42
PROVIDERS: ADMIT Hospitalist; ATTEND Family Medicine
DX: K56.609 Unspecified intestinal obstruction, unspecified as to partial versus complete obstruction (principal); Z88.5 Allergy status to narcotic agent; Z88.7 Allergy status to serum and vaccine; Z79.02 Long term (current) use of antithrombotics/antiplatelets; Z79.899 Other long term (current) drug therapy; Z95.5 Presence of coronary angioplasty implant and graft; I10 Essential (primary) hypertension; I25.10 Atherosclerotic heart disease of native coronary artery without angina pectoris; Z88.1 Allergy status to other antibiotic agents; E87.6 Hypokalemia; E83.42 Hypomagnesemia
CPT/HCPCS: 36415; 74018; 74177; 74250; 80048; 80053; 80076; 83690; 83735; 84100; 84132; 85025; 85610; 85730; 96374; 96375; 99285; J0744; J1170; J1650; J2405; J2550; J3010; J3475; J7030; Q9967

== ENCOUNTER 2020-08-13 01:40 | Emergency (ER) | payer OTHER, MEDICARE ==
[2020-08-13 03:27] LABS: Absolute Lymphocytes (CBC) 1.7 K/uL (0.7-4.9); Basophils % 0.8 % (0-1.3); Lymphocytes % 18.8 % (15.3-44.8); MPV 7.2 fL (7.6-11.3); RBC Red Blood Cell Count 4.17 M/uL (3.86-4.86)
[2020-08-13 03:28] LABS: Protime INR 0.91
[2020-08-13 03:44] LABS: ALT/SGPT 23 U/L (12-78); AST/SGOT 23 U/L (15-37); Albumin 3.8 g/dL (3.4-5.0); Alkaline Phosphatase 107 U/L (45-117); BUN Blood Urea Nitrogen 15 mg/dL (7-18); Bicarbonate 25 mmol/L (21-32); Bilirubin Direct < 0.1 mg/dL (0-0.2); Bilirubin Total 0.3 mg/dL (0.2-1.0); Glucose Level 108 mg/dL (74-106); Magnesium 1.6 mg/dL (1.8-2.4); NT PRO-BNP 98 pg/mL (<450); Potassium 4.3 mmol/L (3.5-5.1); Protein, Total 7.7 g/dL (6.4-8.2); Sodium Level 142 mmol/L (136-145); Troponin (Emerg Dept Use Only) < 0.02 ng/mL (0.0-0.045)
[2020-08-13] MEDS ORDERED: ONDANSETRON 4 MG/2 ML VIAL ONE ×2 (04:12→06:45)
--- NOTE | 2020-08-13 06:15 | ER ---
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 Coronavirus screen: Client denies travel out of the [place] in the last 14 days. Ebola Screen: Patient negative for fever greater than or equal to 101.5 degrees Fahrenheit, and additional compatible Ebola Virus Disease symptoms Patient denies exposure to infectious person. Patient denies travel to an Ebola-affected area in the 21 days before illness onset. No symptoms or risks identified at this time. Initial Sepsis Screen: Does the patient meet any 2 criteria? HR > 90 bpm. No. Patient's initial sepsis screen is negative. Does the patient have a suspected source of infection? No. Patient's initial sepsis screen is negative. Risk Assessment: Do you want to hurt yourself or someone else? Patient reports no desire to harm self or others. Onset of symptoms was August 13, 2020. 01:50 Method Of Arrival: EMS: [facility] em 01:50 Acuity: JASON 3 em Historical: - Allergies: 01:53 Codeine; em 01:53 PENICILLINS; em 01:53 Tetanus Vaccines and Toxoid; em - PMHx: 01:53 cardiac stents 3; colostomy with reversal; Hypertension; em - Immunization history:: Adult Immunizations up to date. - Social history:: Smoking status: Patient denies any tobacco usage or history of. Screenin:20 Abuse screen: Denies threats or abuse. Nutritional screening: No deficits noted. em Tuberculosis screening: No symptoms or risk factors identified. Fall Risk None identified. Assessment: 03:00 General: Appears in no apparent distress. Behavior is calm, cooperative, appropriate ll2 for age. Pain: Complains of pain in pt reports nausea. Neuro: Level of Consciousness is awake, alert, obeys commands, Oriented to person, place, time, situation. Cardiovascular: Patient's skin is warm and dry. Respiratory: Airway is patent Respiratory effort is even, unlabored, Respiratory pattern is regular, symmetrical. GI: Reports nausea. Derm: Skin is intact, is thin, Skin is pink, warm \T\ dry. Musculoskeletal: Circulation, motion, and sensation intact. Range of motion: intact in all extremities. 04:27 Reassessment: Patient and/or family updated on plan of care and expected duration. Pain ll2 level reassessed. Patient is alert, oriented x 3, equal unlabored respirations, skin warm/dry/pink. 05:17 Reassessment: Patient and/or family updated on plan of care and expected duration. Pain ll2 level reassessed. Patient is alert, oriented x 3, equal unlabored respirations, skin warm/dry/pink. 06:07 Reassessment: Patient and/or family updated on plan of care and expected duration. Pain ll2 level reassessed. Patient is alert, oriented x 3, equal unlabored respirations, skin warm/dry/pink. 07:00 Reassessment: RECD REPORT FROM ANTOINETTE MARTINEZ. 85YO WF, D/C COMPLETE, AWAITING TRANSPORT. bp Vital Signs: 01:50 BP 145 / 108; Pulse 101; Resp 18; Temp 97.8; Pulse Ox 97% on R/A; em 03:00 BP 183 / 95; Pulse 111; Resp 18; Pulse Ox 97% on R/A; ll2 04:00 BP 143 / 74; Pulse 96; Resp 20; Pulse Ox 97% on R/A; ll2 05:00 BP 150 / 81; Pulse 103; Resp 18; Pulse Ox 96% on R/A; ll2 ED Course: 01:44 Patient arrived in ED. sg 01:50 Helder Patel, JUAN is Primary Nurse. em 01:53 Triage completed. em 01:53 Arm band placed on. em 02:02 Luis Manuel Pacheco MD is Attending Physician. kdr 02:20 EKG done, by ED staff, reviewed by Luis Manuel Pacheco MD. em 03:36 XRAY Chest (1 view) In Process Unspecified. EDMS 06:40 No provider procedures requiring assistance completed. IV discontinued, intact, ll2 bleeding controlled, No redness/swelling at site. Pressure dressing applied. 06:42 Patient has correct armband on for positive identification. Bed in low position. Call ll2 light in reach. Side rails up X 1. Pulse ox on. NIBP on. 06:44 Primary Nurse role handed off by Helder Patel, JUAN 07:17 Jared Cheng, RN is Primary Nurse. bp Administered Medications: 04:00 Drug: Zofran (Ondansetron) 4 mg Route: IVP; Site: right forearm; ll2 05:18 Follow up: Response: No adverse reaction ll2 06:39 Drug: Zofran (Ondansetron) 4 mg Route: IVP; Site: right forearm; ll2 06:39 Drug: Ativan 0.5 mg Route: PO; ll2 Intake: 03:30 IV: 100ml; Total: 100ml. ll2 Outcome: 06:14 Discharge ordered by . kdr 06:40 Discharged to pt waiting in room for ride plans. ll2 06:40 Condition: stable 06:40 Discharge instructions given to patient, Instructed on discharge instructions, follow up and referral plans. Demonstrated understanding of instructions, follow-up care. 06:42 Patient left the ED. ll2 08:42 Patient left the ED. iw Signatures: Dispatcher [employer] Hemal Echols RN RN Luis Manuel Pacheco MD MD kdr Munoz, Edgar, RN RN Malka Alvarado RN RN Jared Cheng, RN Antoinette Pascal, JUAN RN ll2 Corrections: (The following items were deleted from the chart) 06:40 03:00 BP 143 / 74; Pulse 96bpm; Resp 20bpm; Pulse Ox 97% RA; ll2 ll2
--- NOTE | 2020-08-13 06:15 | EDPHYS ---
Physician Documentation [facility] Name: Adrienne Phealn Age: 85 yrs Sex: Female : 1935 Arrival Date: 08/13/2020 Time: 01:44 Bed 12 Private MD: ED Physician Luis Manuel Pacheco HPI: 08/13 02:44 This 85 yrs old Female presents to ER via EMS with complaints of chest kdr tightness and generalized anxiety. 02:44 The patient or guardian reports chest pain that is located primarily in the anterior kdr chest wall, bilaterally. 04:53 Onset: suddenly, just prior to arrival. The pain does not radiate. Associated signs and kdr symptoms: The patient has no apparent associated signs or symptoms. The chest pain is described as a heaviness, a pressure, Tightness. Duration: The patient or guardian reports a single episode, that is still ongoing, but improving. Modifying factors: The symptoms are alleviated by nothing. the symptoms are aggravated by nothing. Severity of pain: At its worst the pain was mild in the emergency department the pain is unchanged. The patient has not experienced similar symptoms in the past. The patient has not recently seen a physician. The patient states that when the power went out in her home that she panicked and then her chest began to get tight. This made her panic even more and the more she panicked, the more she had chest tightness and the more her chest was tight, the more she panicked. . Historical: - Allergies: 01:53 Codeine; em 01:53 PENICILLINS; em 01:53 Tetanus Vaccines and Toxoid; em - PMHx: 01:53 cardiac stents 3; colostomy with reversal; Hypertension; em - Immunization history:: Adult Immunizations up to date. - Social history:: Smoking status: Patient denies any tobacco usage or history of. ROS: 04:53 Constitutional: Negative for fever, chills, and weight loss, Eyes: Negative for injury, kdr pain, redness, and discharge, ENT: Negative for injury, pain, and discharge, Neck: Negative for injury, pain, and swelling, Respiratory: Negative for shortness of breath, cough, wheezing, and pleuritic chest pain, Abdomen/GI: Negative for abdominal pain, nausea, vomiting, diarrhea, and constipation, Back: Negative for injury and pain, : Negative for injury, bleeding, discharge, and swelling, MS/Extremity: Negative for injury and deformity, Skin: Negative for injury, rash, and discoloration, Neuro: Negative for headache, weakness, numbness, tingling, and seizure activity. Allergy/Immunology: Negative for hives, rash, and allergies, Endocrine: Negative for neck swelling, polydipsia, polyuria, polyphagia, and marked weight changes, Hematologic/Lymphatic: Negative for swollen nodes, abnormal bleeding, and unusual bruising. 04:53 Cardiovascular: Positive for chest pain, of the chest, Negative for edema, orthopnea, palpitations, paroxysmal nocturnal dyspnea. 04:53 Psych: Positive for anxiety, Lives alone. Exam: 04:53 Constitutional: This is a well developed, well nourished patient who is awake, alert, kdr and in no acute distress. Head/Face: Normocephalic, atraumatic. Eyes: Pupils equal round and reactive to light, extra-ocular motions intact. Lids and lashes normal. Conjunctiva and sclera are non-icteric and not injected. Cornea within normal limits. Periorbital areas with no swelling, redness, or edema. Neck: Trachea midline, no thyromegaly or masses palpated, and no cervical lymphadenopathy. Supple, full range of motion without nuchal rigidity, or vertebral point tenderness. No Meningismus. Chest/axilla: Normal chest wall appearance and motion. Nontender with no deformity. No lesions are appreciated. Cardiovascular: Regular rate and rhythm with a normal S1 and S2. No gallops, murmurs, or rubs. Normal PMI, no JVD. No pulse deficits. Respiratory: Lungs have equal breath sounds bilaterally, clear to auscultation and percussion. No rales, rhonchi or wheezes noted. No increased work of breathing, no retractions or nasal flaring. Abdomen/GI: Soft, non-tender, with normal bowel sounds. No distension or tympany. No guarding or rebound. No evidence of tenderness throughout. Back: No spinal tenderness. No costovertebral tenderness. Full range of motion. Skin: Warm, dry with normal turgor. Normal color with no rashes, no lesions, and no evidence of cellulitis. MS/ Extremity: Pulses equal, no cyanosis. Neurovascular intact. Full, normal range of motion. Neuro: Awake and alert, GCS 15, oriented to person, place, time, and situation. Cranial nerves II-XII grossly intact. Motor strength 5/5 in all extremities. Sensory grossly intact. Cerebellar exam normal. Normal gait. Psych: Awake, alert, with orientation to person, place and time. Behavior, mood, and affect are within normal limits. 06:33 ECG was reviewed by the Attending Physician. kdr Vital Signs: 01:50 BP 145 / 108; Pulse 101; Resp 18; Temp 97.8; Pulse Ox 97% on R/A; em 03:00 BP 183 / 95; Pulse 111; Resp 18; Pulse Ox 97% on R/A; ll2 04:00 BP 143 / 74; Pulse 96; Resp 20; Pulse Ox 97% on R/A; ll2 05:00 BP 150 / 81; Pulse 103; Resp 18; Pulse Ox 96% on R/A; ll2 MDM: 04:53 Data reviewed: vital signs, nurses notes, lab test result(s), EKG, radiologic studies. kdr 06:14 Patient medically screened. kdr 08/13 02:40 Order name: Basic Metabolic Panel kdr 08/13 02:40 Order name: CBC with Diff; Complete Time: 03:59 kdr 08/13 02:40 Order name: LFT's; Complete Time: 03:59 kdr 08/13 02:40 Order name: Magnesium; Complete Time: 03:59 kdr 08/13 02:40 Order name: NT PRO-BNP; Complete Time: 03:59 kdr 08/13 02:40 Order name: PT-INR; Complete Time: 03:59 kdr 08/13 02:40 Order name: Troponin (emerg Dept Use Only); Complete Time: 03:59 kdr 08/13 02:40 Order name: XRAY Chest (1 view) kdr 08/13 02:40 Order name: EKG; Complete Time: 02:40 kdr 08/13 02:40 Order name: Basic Metabolic Panel; Complete Time: 03:59 EDMS 08/13 04:00 Order name: Troponin (emerg Dept Use Only): Draw two hours aftaer initial draw; kdr Complete Time: 06:13 08/13 02:40 Order name: Cardiac monitoring; Complete Time: 02:47 kdr 08/13 02:40 Order name: EKG - Nurse/Tech; Complete Time: 02:47 kdr 08/13 02:40 Order name: IV Saline Lock; Complete Time: 06:31 [facility] 08/13 02:40 Order name: Labs collected and sent; Complete Time: 06:31 [facility] 08/13 02:40 Order name: O2 Per Protocol; Complete Time: :47 [facility] 08/13 02:40 Order name: O2 Sat Monitoring; Complete Time: 02:47 [facility] EC:33 Rate is 104 beats/min. Rhythm is regular, Sinus tachycardia with No ectopy. QRS [place] is kdr Normal. OR interval is normal. QT interval is normal. Clinical impression: NSR w/ Non-specific ST/T Changes and Sinus tachycardia. Administered Medications: 04:00 Drug: Zofran (Ondansetron) 4 mg Route: IVP; Site: right forearm; ll2 05:18 Follow up: Response: No adverse reaction ll2 06:39 Drug: Zofran (Ondansetron) 4 mg Route: IVP; Site: right forearm; ll2 06:39 Drug: Ativan 0.5 mg Route: PO; ll2 Disposition: 08/13/20 06:14 Discharged to Home. Impression: Shortness of breath, Anxiety disorder, unspecified, Palpitations. - Condition is Stable. - Discharge Instructions: Shortness of Breath, [id number], Panic Attacks, [id number]-[id number], Palpitations, [id number], Generalized Anxiety Disorder. - Medication Reconciliation Form, Thank You Letter form. - Follow up: Private Physician; When: 2 - 3 days; Reason: If symptoms return, Further diagnostic work-up, Recheck today's complaints, Continuance of care, Re-evaluation by your physician. - Problem is new. - Symptoms have improved. Signatures: Dispatcher [employer] [facility] Luis Manuel Pacheco MD MD kdr Munoz, Edgar RN RN em Malka Rodriguez RN RN Antoinette Contreras RN RN ll2 Corrections: (The following items were deleted from the chart) 06:42 06:14 08/13/2020 06:14 Discharged to Home. Impression: Shortness of breath; Anxiety ll2 disorder, unspecified; Palpitations. Condition is Stable. Forms are Medication Reconciliation Form, Thank You Letter, Antibiotic Education, Prescription Opioid Use. Follow up: Private Physician; When: 2 - 3 days; Reason: If symptoms return, Further diagnostic work-up, Recheck today's complaints, Continuance of care, Re-evaluation by your physician. Problem is new. Symptoms have improved. kdr 08:42 06:42 08/13/2020 06:14 Discharged to Home. Impression: Shortness of breath; Anxiety iw disorder, unspecified; Palpitations. Condition is Stable. Discharge Instructions: Shortness of Breath, [id number], Panic Attacks, Gelf-je-[id number], Palpitations, Izhb-fh-Kgic, Generalized Anxiety Disorder. Forms are Medication Reconciliation Form, Thank You Letter. Follow up: Private Physician; When: 2 - 3 days; Reason: If symptoms return, Further diagnostic work-up, Recheck today's complaints, Continuance of care, Re-evaluation by your physician. Problem is new. Symptoms have improved. ll2
[2020-08-13] MEDS ORDERED: LORAZEPAM 0.5 MG TABLET ONE (06:45)
[2020-08-13 06:47] VITALS: TEMP 97.8
[2020-08-13 06:50] VITALS: BP 150/81; O2SAT 96
--- NOTE | 2020-08-13 08:37 | RAD REPORT ---
EXAM DESCRIPTION: RAD - Chest Single View - 08/13/2020 3:37 am CLINICAL HISTORY: anxiety;Chest pain COMPARISON: Two-view chest June 2012 TECHNIQUE: AP portable chest image was obtained 08/13/2020 3:37 am . FINDINGS: No focal lung parenchymal process seen. Interstitial pattern matches comparison when adjus ting for shallow inspiration on the current examination. The nodular focus lateral mid right lung fie ld detailed on the 2013 study is not seen on this current examination. Heart and vasculature are normal. No measurable pleural effusion and no pneumothorax. Bilateral shou lder joint degenerative changes are present showing significant progression since 2013. No acute bone findings seen. No acute aortic finding. Patient has very dense carotid bulb calcifications substanti ally progressive from 2013. IMPRESSION: No acute cardiopulmonary process. Dense bilateral carotid bulb calcifications progressive from 2013.
--- NOTE | 2020-08-13 09:59 | EKG ---
Test Date: 2020-08-13 Test Time: 02:16:44 Branch Maker: ANGELES MEASUREMENT RESULTS: Intervals: Rate: 104 AL: 136 QRSD: 72 QT: 340 QTc: 447 [place]: P: -4 AL: 136 QRS: 86 T: 5 INTERPRETIVE STATEMENTS: Sinus tachycardia Otherwise normal ECG Compared to ECG 01/30/2010 14:27:38 Sinus rhythm no longer present Electronically Signed On 08-13-20 09:59:22 [employer] SUPERVIS[employer] by Ryan Cuellar
== END 2020-08-13 08:42 | disposition home or self-care (01) ==
LOC: ER 01:40
DX: R07.89 Other chest pain (principal); R06.02 Shortness of breath; R00.2 Palpitations; F41.9 Anxiety disorder, unspecified; Z95.5 Presence of coronary angioplasty implant and graft; I10 Essential (primary) hypertension
CPT/HCPCS: 93005; 85025; 80048; 36415; 83735; 85610; 80076; 84484 ×2; 83880; 71045; 96374; 99284; J2405 ×2

== ENCOUNTER → 2023-08-09 | Emergency (ER) | payer OTHER, MEDICARE ==
[~2023-08-09] MED LIST: ASPIRIN 81 MG CHEWABLE TABLET ONE; DIAZEPAM 2 MG TABLET ONE; FUROSEMIDE 40 MG/4 ML VIAL ONE; HEPARIN 5000 UNIT/ML 1 ML VIAL ONE; HEPARIN/D5W 25,000 UNIT/500 ML BAG IV ONE; Levofloxacin 750mg IV 750 MG/150 ML BAG IV ONE
--- OUTSIDE RECORDS SUMMARY | 2023-08-09 03:35 | XMS REPORT | Continuity of Care Document ---
Author Name Unknown Address [address] [facility] [address] [place] [address] [facility] Address [address] [facility] [address] [place] [address] Care Team Providers Care Case Manager Name Role Phone Ta Perez MD Primary Care Physician [phone] KASIA MYERS Attending Clinician TA Wiggins Attending Clinician Unavailable Vibha Ambrose Cardiology Attending Clinician Unavailable Kasia Myers MD Attending Clinician [phone]- [phone] Doctor Unassigned, [place] Attending Clinician U Lily Velasquez RN Attending Clinician Unavailab MICHEAL Hancock Attending Clinician Unavailable John Wiley DO Attending Clinician [phone] Bharati Juarez DO Attending Clinician [phone] Micheal Ferrell MD Attending Clinician [phone] JESU RADFORD Attending Clinician Unavailable Jesu Radford MD Attending Clinician [phone] MUNIRA ELIAS Attending Clinician Unavailable MARILYN DENNY Attending Clinician Unavailabl e Radiology Attending Clinician Unavailable 1, [facility] Attending Clinician Unavailable KASIA MYERS Admitting Clinician Darcy Germain Admitting Clinician Unavailable BHARATI JUAREZ Admitting Clinician Unavailable Bharati Juarez DO Admitting Clinician JESU RADFORD Admitting Clinician Unavailable Payers Payer Name Policy Type Policy Number Effective Date Expirati on Date Source MEDICARE PART A \\T\\ B [id number] 2001 00:00:00 [facility] MEDICARE SUPPLEMENT [id number] 2015 00:00:00 MEDICARE PART A AND B [id number] 2001 00:00:00 Problems Condition Name Condition Details Condition Category Status Onset Date Resolution Date Last Treatment Date Treating Clinician Comments Source Pulmonary hypertensi on Pulmonary hypertensi on Disease Active 08-03 00:00: 00 [facility] Aortic stenosis Aortic stenosis Disease Active 08-02 00:00: 00 [facility] Essential hypertensi on Essential hypertensi on Disease Active 08-02 00:00: 00 [facility] Dyslipidem ia Dyslipidem ia Disease Active 08-02 00:00: 00 [facility] (HFpEF) heart failure with preserved ejection fraction (HFpEF) heart failure with preserved ejection fraction Disease Active 08-02 00:00: 00 [facility] CHF NYHA class II (symptoms with moderately strenuous activities ), unspecifie d failure chronicity , unspecifie d type CHF NYHA class II (symptoms with moderately strenuous activities ), unspecifie d failure chronicity , unspecifie d type Disease Active 2- 00:00: 00 [facility] Bronchopne umonia Bronchopne umonia Disease Active 2-04 00:00: 00 [facility] COPD with acute exacerbati on COPD with acute exacerbati on Disease Active 2- 00:00: 00 [facility] Allergic bronchitis with acute exacerbati on Allergic bronchitis with acute exacerbati on Disease Active 2- 00:00: 00 [facility] 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[place] coronary artery of [place] heart without angina pectoris Disease Active 03-04 00:00: 00 [facility] 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[place] coronary artery of kar[place] heart without angina pectoris Disease Active 03-04 00:00: 00 [facility] Mixed hyperlipid emia Mixed hyperlipid emia Disease Active 03-04 00:00: 00 [facility] Anxiety Anxiety Disease Active 03-04 00:00: 00 [facility] Allergies, Adverse Reactions, Alerts Allergy Name Allergy Type Status Severity Reaction(s) Onset Date Inactive Date Treating Clinician Comments Source diphenhy dramine DA Active MO HYPER 07-31 00:00: 00 [facility] No Known Allergie s DA Active U 07-29 00:00: 00 [facility] Penicill ins DA Active U UNKNOWN 07-29 00:00: 00 [facility] codeine DA Active U HYPER 07-29 00:00: 00 [facility] ANATOXIN DA Active MO SWELLING 07-29 00:00: 00 [facility] PENICILL IN DRUG INGREDI Active Rash 01-14 00:00: 00 [facility] Penicill in Propensi ty to adverse reaction s Active Rash 01-14 00:00: 00 [facility] PENICILL INS Drug Class Active High Anaphylaxis 01-12 00:00: 00 [facility] CODEINE DRUG INGREDI Active Med Other-Cmnt 01-12 00:00: 00 [facility] TETANUS TOXOID DRUG Active Unknown-Cmnt 01-12 00:00: 00 [facility] Codeine Propensi ty to adverse reaction s to drug Active Other - See comments 01-12 00:00: 00 Makes patient extremely hyper [facility] Penicill ins Propensi ty to adverse reaction s to drug Active Swelling 01-12 00:00: 00 [facility] Tetanus Toxoid Propensi ty to adverse reaction s Active Unknown - See comments 2016-0 7-18 00:00: 00 [facility] Social History Social Habit Start Date Stop Date Quantity Comments Source History SDOH Social Connections Get Together [facility] History SDOH Social Connections [facility] History SDOH Social Connections Membership [facility] History SDOH Social Connections Meetings [facility] Alcohol Frequency 2022-08-03 00:00:00 2022-08-03 00:00:00 1 [facility] History SDOH Alcohol Std Drinks 2022-08-03 00:00:00 2022-08-03 00:00:00 0 [facility] History SDOH Alcohol Binge 2022-08-03 00:00:00 2022-08-03 00:00:00 1 [facility] History SDOH Social Connections Phone 2022-08-03 00:00:00 2022-08-03 00:00:00 5 [facility] History SDOH Social Connections Living 2022-08-03 00:00:00 2022-08-03 00:00:00 4 [facility] History SDOH Physical Activity DPW 2022-08-03 00:00:00 2022-08-03 00:00:00 5 [facility] History SDOH Physical Activity MPS 2022-08-03 00:00:00 2022-08-03 00:00:00 3 [facility] History SDOH Financial 2022-08-03 00:00:00 2022-08-03 00:00:00 5 [facility] History SDOH Food Worry 2022-08-03 00:00:00 2022-08-03 00:00:00 1 [facility] History SDOH Food Scarcity 2022-08-03 00:00:00 2022-08-03 00:00:00 1 [facility] History SDOH Transport Med 2022-08-03 00:00:00 2022-08-03 00:00:00 2 [facility] History SDOH Transport Non-Med 2022-08-03 00:00:00 2022-08-03 00:00:00 2 [facility] Alcohol intake 2022-08-02 00:00:2022-08-02 00:00:00 0 /d [facility] Exposure to SARS-CoV-2 (event) 2022-07-22 00:00:00 2022-08-01 11:15:00 Not sure [facility] History of Social function 2020-10-24 00:00:00 2020-10-24 00:00:00 [facility] Cigarettes smoked current (pack per day) - Reported 2017-03-04 00:00:00 2017-03-04 00:00:00 [facility] Cigarette pack-years 2017-03-04 00:00:00 2017-03-04 00:00:00 [facility] Tobacco use and exposure 2017-03-04 00:00:00 2017-03-04 00:00:00 Smokeless tobacco non-user [facility] History of tobacco use 1974-03-04 00:00:00 Cigarette Smoker [facility] Sex Assigned At 1935 00:00:00 1935 00:00:00 [facility] Smoking Status Start Date Stop Date Source Tobacco smoking consumption unknown [facility] Ex-smoker 2017-03-04 00:00:00 2017-03-04 00:00:00 [facility] Medications Ordered Medication Name Filled Medication Name Start Date Stop Date Current Medication? Ordering Clinician Indication Dosage Frequency Signature (SIG) Comments Components Source barium sulfate (E-Z-HD BARIUM) 98 % oral suspension 680 g 2022-06 16:15: 00 06-10 16:13 :00 No [id number] 680g 680 g, Oral, ONCE, 1 dose, On Wed06/10/23 at 1015, Routine [facility] predniSONE 20 mg tablet 0 2-10 00:00: 00 08-12 05:59 :00 No [id number] 40mg Take 2 tablets by mouth in the morning for 4 days. [facility] predniSONE 20 mg tablet 0 2-10 00:00: 00 08-12 05:59 :00 No [id number] 40mg Take 2 tablets by mouth in the morning for 4 days. [facility] predniSONE 20 mg tablet 2-10 00:00: 00 08-12 05:59 :00 No [id number] 40mg Take 2 tablets by mouth in the morning for 4 days. [facility] clopidogrel (PLAVIX) 75 mg tablet 08-06 12:53: 46 Yes 75mg Take 75 mg by mouth daily. [facility] aspirin 81 mg EC tablet 08-06 12:53: 46 Yes 81mg Take 81 mg by mouth daily. [facility] Vit A,C,E-Zinc- Copper (ICAPS AREDS) 14,320226- 200 unit-mg-uni t Cap 08-06 12:53: 46 Yes 2{capsu le} Take 2 capsules by mouth daily. [facility] LORazepam 0.5 mg tablet 08-06 12:53: 46 Yes .5mg Take 0.5 mg by mouth 2 (two) times daily. [facility] atorvastati n 80 mg tablet 08-06 12:53: 46 Yes 80mg Take 80 mg by mouth at bedtime. [facility] clopidogrel (PLAVIX) 75 mg tablet 08-06 12:53: 46 Yes 75mg Take 75 mg by mouth daily. [facility] aspirin 81 mg EC tablet 08-06 12:53: 46 Yes 81mg Take 81 mg by mouth daily. [facility] Vit A,C,E-Zinc- Copper (ICAPS AREDS) 14,320226- 200 unit-mg-uni t Cap 08-06 12:53: 46 Yes 2{capsu le} Take 2 capsules by mouth daily. [facility] LORazepam 0.5 mg tablet 08-06 12:53: 46 Yes .5mg Take 0.5 mg by mouth 2 (two) times daily. [facility] atorvastati n 80 mg tablet 08-06 12:53: 46 Yes 80mg Take 80 mg by mouth at bedtime. [facility] clopidogrel (PLAVIX) 75 mg tablet 08-06 12:53: 46 Yes 75mg Take 75 mg by mouth daily. [facility] aspirin 81 mg EC tablet 08-06 12:53: 46 Yes 81mg Take 81 mg by mouth daily. [facility] Vit A,C,E-Zinc- Copper (ICAPS AREDS) 14,320-226- 200 unit-mg-uni t Cap 08-06 12:53: 46 Yes 2{capsu le} Take 2 capsules by mouth daily. [facility] LORazepam 0.5 mg tablet 08-06 12:53: 46 Yes .5mg Take 0.5 mg by mouth 2 (two) times daily. [facility] atorvastati n 80 mg tablet 08-06 12:53: 46 Yes 80mg Take 80 mg by mouth at bedtime. [facility] clopidogrel (PLAVIX) 75 mg tablet 08-06 12:53: 46 Yes 75mg Take 75 mg by mouth daily. [facility] aspirin 81 mg EC tablet 08-06 12:53: 46 Yes 81mg Take 81 mg by mouth daily. [facility] Vit A,C,E-Zinc- Copper (ICAPS AREDS) 14,320-226- 200 unit-mg-uni t Cap 08-06 12:53: 46 Yes 2{capsu le} Take 2 capsules by mouth daily. [facility] LORazepam 0.5 mg tablet 08-06 12:53: 46 Yes .5mg Take 0.5 mg by mouth 2 (two) times daily. [facility] atorvastati n 80 mg tablet 08-06 12:53: 46 Yes 80mg Take 80 mg by mouth at bedtime. [facility] clopidogrel (PLAVIX) 75 mg tablet 08-06 12:53: 46 Yes 75mg Take 75 mg by mouth daily. [facility] aspirin 81 mg EC tablet 08-06 12:53: 46 Yes 81mg Take 81 mg by mouth daily. [facility] Vit A,C,E-Zinc- Copper (ICAPS AREDS) 14,320-226- 200 unit-mg-uni t Cap 08-06 12:53: 46 Yes 2{capsu le} Take 2 capsules by mouth daily. [facility] LORazepam 0.5 mg tablet 08-06 12:53: 46 Yes .5mg Take 0.5 mg by mouth 2 (two) times daily. [facility] atorvastati n 80 mg tablet 08-06 12:53: 46 Yes 80mg Take 80 mg by mouth at bedtime. [facility] clopidogrel (PLAVIX) 75 mg tablet 08-06 12:53: 46 Yes 75mg Take 75 mg by mouth daily. [facility] aspirin 81 mg EC tablet 08-06 12:53: 46 Yes 81mg Take 81 mg by mouth daily. [facility] Vit A,C,E-Zinc- Copper (ICAPS AREDS) 14,320226- 200 unit-mg-uni t Cap 08-06 12:53: 46 Yes 2{capsu le} Take 2 capsules by mouth daily. [facility] LORazepam 0.5 mg tablet 08-06 12:53: 46 Yes .5mg Take 0.5 mg by mouth 2 (two) times daily. [facility] atorvastati n 80 mg tablet 08-06 12:53: 46 Yes 80mg Take 80 mg by mouth at bedtime. [facility] levoFLOXaci n (LEVAQUIN) tablet 500 mg 08-06 00:00: 00 Yes 500mg 500 mg, Oral, Q24H ABX, First dose on Wed08/05/22 at 1800, Until Discontinu ed, LUCIO
Re ason for Anti-Infec tive: Documented Infection< br>Documen kenneth Infection Site: Respirator y
Durat ion of Therapy: 7 days [facility] levoFLOXaci n 500 mg tablet 08-06 00:00: 00 08-10 05:59 :00 No [id number] 500mg Take 1 tablet by mouth every 24 (twenty-fo ur) hours for 3 days. [facility] levoFLOXaci n 500 mg tablet 08-06 00:00: 00 08-10 05:59 :00 No [id number] 500mg Take 1 tablet by mouth every 24 (twenty- ur) hours for 3 days. [facility] levoFLOXaci n 500 mg tablet 08-06 00:00: 00 08-10 05:59 :00 No [id number] 500mg Take 1 tablet by mouth every 24 (twenty- ur) hours for 3 days. [facility] sennosides- docusate sodium (SENOKOT-S) 8.6-50 mg per tablet 1 tablet 08-05 15:00: 00 Yes 1{tbl} 1 tablet, Oral, DAILY, First dose on Wed08/05/22 at 0900, Until Discontinu ed, [facility]ine [facility] polyethylen e glycol 3350 powder 17 g 08-05 15:00: 00 Yes 17g 17 g, Oral, DAILY, First dose on Wed08/05/22 at 0900, Until Discontinu ed, Routine [facility] levalbutero l (XOPENEX) nebulizer solution 0.63 mg 08-05 02:00: 00 Yes .63mg 0.63 mg, Inhalation , QID, First dose (after last modificati on) on Wed08/04/22 at 2000, Until Discontinu ed, Routine [facility] KCL (KLOR-CON M20) tablet 40 mEq 08-04 16:00: 00 08-04 17:26 :00 No 40meq 40 mEq, Oral, ONCE, 1 dose, On Wed08/04/22 at 1000, Routine [facility] traZODone (DESYREL) tablet 50 mg 08-04 06:30: 00 Yes 50mg 50 mg, Oral, QHS, First dose on Wed08/04/22 at 0030, Until Discontinu ed, Routine [facility] magnesium sulfate in water 4 gram/50 mL (8 %) IV Piggyback 4 g 08-04 01:15: 00 08-04 04:12 :00 No 4g 4 g, IV Piggyback, at 25 mL/hr Administer over 120 Minutes, ONCE, 1 dose, On Wed08/03/22 at 1915, Routine [facility] levoFLOXaci n in D5W (LEVAQUIN) 750 mg/150 mL Piggyback 750 mg 08-03 22:00: 00 08-05 22:51 :50 No 750mg 750 mg, IV Piggyback, Q48H, 5 doses, First dose on Wed08/03/22 at 1600, Last dose on Wed08/11/22 at 1600, Administer over 90 Minutes, 150 mL
Reas on for Anti-Infec tive: Empiric Therapy for Suspected Infection< br>Empiric Therapy Site: Respirator y
Durat ion of therapy: 5 days [facility] predniSONE (DELTASONE) tablet 40 mg 08-03 15:00: 00 Yes 40mg 40 mg, Oral, DAILY, First dose on Wed08/03/22 at 0900, Until Discontinu ed, Routine [facility] atorvastati n (LIPITOR) tablet 80 mg 08-03 03:00: 00 Yes 80mg 80 mg, Oral, QHS, First dose on Wed08/02/22 at 2100, Until Discontinu ed, Routine [facility] levalbutero l (XOPENEX) nebulizer solution 0.63 mg 08-03 02:00: 00 08-04 21:14 :31 No .63mg 0.63 mg, Inhalation , TID, First dose on Wed08/02/22 at 2000, Until Discontinu ed, Routine [facility] ipratropium (ATROVENT) 0.02 % nebulizer solution 0.5 mg 08-02 22:00: 00 Yes .5mg 0.5 mg, Inhalation , QID, First dose on Wed08/02/22 at 1600, Until Discontinu ed, Routine [facility] albuterol (PROVENTIL) 2.5 mg /3 mL (0.083 %) nebulizer solution 2.5 mg 08-02 22:00: 00 08-03 00:25 :23 No 2.5mg 2.5 mg, Inhalation , QID, First dose on 08/02/22 at 1600, Until Discontinu ed, Routine [facility] metoprolol succinate XL (TOPROL XL) tablet 25 mg 08-02 15:00: 00 Yes 25mg 25 mg, Oral, DAILY, First dose on 08/02/22 at 0900, Until Discontinu ed, Routine [facility] loratadine (CLARITIN) tablet 10 mg 08-02 15:00: 00 Yes 10mg 10 mg, Oral, DAILY, First dose on 08/02/22 at 0900, Until Discontinu ed, Routine [facility] lisinopriL (PRINIVIL,Z ESTRIL) tablet 10 mg 08-02 15:00: 00 Yes 10mg 10 mg, Oral, DAILY, First dose on 08/02/22 at 0900, Until Discontinu ed, Routine [facility] fluticasone propionate 50 mcg/actuati on nasal spray 2 Exchange 08-02 15:00: 00 Yes 2{spray } 2 Exchange, Nasal, DAILY, First dose on 08/02/22 at 0900, Until Discontinu ed, Routine [facility] clopidogreL (PLAVIX) 75 mg tablet 75 mg 08-02 15:00: 00 Yes 75mg 75 mg, Oral, DAILY, First dose on 08/02/22 at 0900, Until Discontinu ed, Routine [facility] aspirin EC tablet 81 mg 08-02 15:00: 00 Yes 81mg 81 mg, Oral, DAILY, First dose on 08/02/22 at 0900, Until Discontinu ed, Routine [facility] LORazepam (ATIVAN) tablet 0.5 mg 08-02 14:05: 55 Yes .5mg 0.5 mg, Oral, BIDPRN, Starting on 08/02/22 at 0805, Until Discontinu ed, Routine, Anxiety [facility] guaiFENesin 100 mg/5 mL solution 200 mg 08-02 06:42: 31 Yes 200mg 200 mg, Oral, Q4HPRN, Starting on 08/02/22 at 0042, Until Discontinu ed, Routine, Cough [facility] heparin (porcine) injection 5,000 Units 08-02 04:00: 00 Yes 5000U 5,000 Units, Subcutaneo us, Q8H, First dose on 08/01/22 at 2200, Until Discontinu ed, Routine [facility] montelukast (SINGULAIR) tablet 10 mg 08-02 03:12: 53 Yes 10mg 10 mg, Oral, [id number], Starting on 08/01/22 at 211, Until Discontinu ed, Routine, symptoms [facility] benzonatate (TESSALON PERLES) capsule 100 mg 08-02 03:11: 43 Yes 100mg 100 mg, Oral, TIDPRN, Starting on 08/01/22 at 2111, Until Discontinu ed, Routine, Cough [facility] furosemide (LASIX) injection 20 mg 08-02 02:00: 00 08-03 14:37 :31 No 20mg 20 mg, Slow IV Push, Q12H, First dose on 08/01/22 at 2000, Until Discontinu ed, Routine [facility] acetaminoph en (TYLENOL) tablet 650 mg 08-01 23:27: 25 Yes 650mg 650 mg, Oral, Q6HPRN, Starting on 08/01/22 at 1727, Until Discontinu ed, Routine, Pain (scale 1-3) [facility] NaCl 0.9% (NS) bolus infusion 1,000 mL 08-01 22:45: 00 08-02 00:08 :00 No 1000mL at 999 mL/hr, 1,000 mL, IV Piggyback, ONCE, 1 dose, On 08/01/22 at 1645, STAT [facility] levoFLOXaci n in D5W (LEVAQUIN) 750 mg/150 mL Piggyback 750 mg 08-01 21:30: 08-02 00:08 :00 No 750mg 750 mg, IV Piggyback, ONCE, 1 dose, On 08/01/22 at 1530, Administer over 90 Minutes, 150 mL
Reas on for Anti-Infec tive: Empiric Therapy for Suspected Infection< br>Empiric Therapy Site: Respirator y
Durat ion of therapy: 72 hours [facility] LORazepam (ATIVAN) injection 1 mg 08-01 20:45: 00 08-01 20:41 :00 No 1mg 1 mg, Slow IV Push, ONCE, 1 dose, On 08/01/22 at 1445, STAT [facility] ipratropium -albuteroL (DUONEB) 0.5 mg-3 mg(2.5 mg base)/3 mL nebulizer solution 3 mL 08-01 20:04: 00 08-01 20:05 :00 No 3mL 3 mL, Inhalation , ONCE NOW, 1 dose, On 08/01/22 at 1415, Routine [facility] methylpredn isolone sod succ (SOLU-MEDRO L) injection 125 mg 08-01 18:00: 00 08-02 21:36 :45 No 125mg 125 mg, Intravenou s, Q6H, First dose on 08/01/22 at 1200, Until Discontinu ed, Routine [facility] ipratropium -albuteroL (DUONEB) 0.5 mg-3 mg(2.5 mg base)/3 mL nebulizer solution 3 mL 08-01 18:00: 00 08-02 19:10 :08 No 3mL 3 mL, Inhalation , QID, First dose on 08/01/22 at 1200, Until Discontinu ed, Routine [facility] chlorphenir amine 4 mg tablet 08-01 00:00: 00 Yes [id number] 4mg Take 1 tablet by mouth every 6 (six) hours as needed for Allergies or Runny nose. [facility] chlorphenir amine 4 mg tablet 08-01 00:00: 00 Yes [id number] 4mg Take 1 tablet by mouth every 6 (six) hours as needed for Allergies or Runny nose. [facility] chlorphenir amine 4 mg tablet 0 2-04 00:00: 00 Yes [id number] 4mg Take 1 tablet by mouth every 6 (six) hours as needed for Allergies or Runny nose. [facility] chlorphenir amine 4 mg tablet 2022-0 2-04 00:00: 00 Yes [id number] 4mg Take 1 tablet by mouth every 6 (six) hours as needed for Allergies or Runny nose. [facility] chlorphenir amine 4 mg tablet 2022-0 2-04 00:00: 00 Yes [id number] 4mg Take 1 tablet by mouth every 6 (six) hours as needed for Allergies or Runny nose. [facility] chlorphenir amine 4 mg tablet 2-04 00:00: 00 Yes [id number] 4mg Take 1 tablet by mouth every 6 (six) hours as needed for Allergies or Runny nose. [facility] methylpredn isolone sod succ (SOLU-MEDRO L) injection 125 mg 07-07 18:15: 00 07-07 17:25 :00 No 125mg 125 mg, Slow IV Push, ONCE NOW, 1 dose, On Wed07/07/22 at 1215, [facility] albuterol (PROVENTIL) 2.5 mg /3 mL (0.083 %) nebulizer solution 2.5 mg 07-07 18:00: 00 07-07 16:33 :48 No 2.5mg 2.5 mg, Inhalation , QID, First dose on Wed07/07/22 at 1200, Until Discontinu ed, [facility] ipratropium (ATROVENT) 0.02 % nebulizer solution 0.5 mg 07-07 16:45: 00 07-07 16:12 :00 No .5mg 0.5 mg, Inhalation , ONCE, 1 dose, On Wed07/07/22 at 1045, [facility] loratadine- pseudoephed rine (CLARITIN-D 24 HOUR) 10-240 mg per 24 hr tablet 0 10 00:00: 00 Yes [id number] 1{tbl} Take 1 tablet by mouth in the morning. [facility] 07-07 00:00: 00 Yes [id number] 10mg Take 1 tablet by mouth every 24 (twenty-fo ur) hours as needed (symptoms) . [facility] albuterol 90 mcg/actuati on inhaler 07-07 00:00: 00 Yes [id number] 2{puff} Inhale 2 Puffs every 6 (six) hours as needed for Wheezing or Shortness of Breath. [facility] benzonatate 100 mg capsule 07-07 00:00: 00 Yes [id number] 100mg Take 1 capsule by mouth 3 (three) times daily as needed for Cough. [facility] loratadine- pseudoephed rine (CLARITIN-D 24 HOUR) 10-240 mg per 24 hr tablet 07-07 00:00: 00 Yes [id number] 1{tbl} Take 1 tablet by mouth in the morning. [facility] montelukast 10 mg tablet 07-07 00:00: 00 Yes [id number] 10mg Take 1 tablet by mouth every 24 (twenty-fo ur) hours as needed (symptoms) . [facility] albuterol 90 mcg/actuati on inhaler 07-07 00:00: 00 Yes [id number] 2{puff} Inhale 2 Puffs every 6 (six) hours as needed for Wheezing or Shortness of Breath. [facility] benzonatate 100 mg capsule 07-07 00:00: 00 Yes [id number] 100mg Take 1 capsule by mouth 3 (three) times daily as needed for Cough. [facility] loratadine- pseudoephed rine (CLARITIN-D 24 HOUR) 10-240 mg per 24 hr tablet 07-07 00:00: 00 Yes [id number] 1{tbl} Take 1 tablet by mouth in the morning. [facility] montelukast 10 mg tablet 07-07 00:00: 00 Yes [id number] 10mg Take 1 tablet by mouth every 24 (twenty-fo ur) hours as needed (symptoms) . [facility] albuterol 90 mcg/actuati on inhaler 07-07 00:00: 00 Yes [id number] 2{puff} Inhale 2 Puffs every 6 (six) hours as needed for Wheezing or Shortness of Breath. [facility] benzonatate 100 mg capsule 07-07 00:00: 00 Yes [id number] 100mg Take 1 capsule by mouth 3 (three) times daily as needed for Cough. [facility] loratadine- pseudoephed rine (CLARITIN-D 24 HOUR) 10-240 mg per 24 hr tablet 07-07 00:00: 00 Yes [id number] 1{tbl} Take 1 tablet by mouth in the morning. [facility] montelukast 10 mg tablet 07-07 00:00: 00 Yes [id number] 10mg Take 1 tablet by mouth every 24 (twenty-fo ur) hours as needed (symptoms) . [facility] albuterol 90 mcg/actuati on inhaler 07-07 00:00: 00 Yes [id number] 2{puff} Inhale 2 Puffs every 6 (six) hours as needed for Wheezing or Shortness of Breath. [facility] benzonatate 100 mg capsule 07-07 00:00: 00 Yes [id number] 100mg Take 1 capsule by mouth 3 (three) times daily as needed for Cough. [facility] loratadine- pseudoephed rine (CLARITIN-D 24 HOUR) 10-240 mg per 24 hr tablet 07-07 00:00: 00 Yes [id number] 1{tbl} Take 1 tablet by mouth in the morning. [facility] montelukast 10 mg tablet 07-07 00:00: 00 Yes [id number] 10mg Take 1 tablet by mouth every 24 (twenty-fo ur) hours as needed (symptoms) . [facility] albuterol 90 mcg/actuati on inhaler 07-07 00:00: 00 Yes [id number] 2{puff} Inhale 2 Puffs every 6 (six) hours as needed for Wheezing or Shortness of Breath. [facility] benzonatate 100 mg capsule 07-07 00:00: 00 Yes [id number] 100mg Take 1 capsule by mouth 3 (three) times daily as needed for Cough. [facility] loratadine- pseudoephed rine (CLARITIN-D 24 HOUR) 10-240 mg per 24 hr tablet 07-07 00:00: 00 Yes [id number] 1{tbl} Take 1 tablet by mouth in the morning. [facility] montelukast 10 mg tablet 07-07 00:00: 00 Yes [id number] 10mg Take 1 tablet by mouth every 24 (twenty-fo ur) hours as needed (symptoms) . [facility] albuterol 90 mcg/actuati on inhaler 07-07 00:00: 00 Yes [id number] 2{puff} Inhale 2 Puffs every 6 (six) hours as needed for Wheezing or Shortness of Breath. [facility] benzonatate 100 mg capsule 07-07 00:00: 00 Yes [id number] 100mg Take 1 capsule by mouth 3 (three) times daily as needed for Cough. [facility] loratadine- pseudoephed rine (CLARITIN-D 24 HOUR) 10-240 mg per 24 hr tablet 07-07 00:00: 00 Yes [id number] 1{tbl} Take 1 tablet by mouth in the morning. [facility] montelukast 10 mg tablet 07-07 00:00: 00 Yes [id number] 10mg Take 1 tablet by mouth every 24 (twenty-fo ur) hours as needed (symptoms) . [facility] methylPREDN ISolone 4 mg tablets 07-07 00:00: 00 Yes [id number] Take by mouth SEE-INSTRU CTIONS. follow package directions [facility] albuterol 90 mcg/actuati on inhaler 07-07 00:00: 00 Yes [id number] 2{puff} Inhale 2 Puffs every 6 (six) hours as needed for Wheezing or Shortness of Breath. [facility] benzonatate 100 mg capsule 07-07 00:00: 00 Yes [id number] 100mg Take 1 capsule by mouth 3 (three) times daily as needed for Cough. [facility] methylPREDN ISolone 4 mg tablets 07-07 00:00: 00 08-06 00:00 :00 No [id number] Take by mouth SEE-INSTRU CTIONS. follow package directions [facility] doxycycline hyclate 100 mg capsule 07-07 00:00: 00 07-18 05:59 :00 No [id number] 100mg Take 1 capsule by mouth in the morning and 1 capsule in the evening. Do all this for 10 days. [facility] No known medications 07-09 12:45: 54 No No known medication [facility] metoprolol succinate XL 25 mg 24 hr tablet 10-04 00:00: 00 Yes 25mg Take 25 mg by mouth daily. [facility] metoprolol succinate XL 25 mg 24 hr tablet 10-04 00:00: 00 Yes 25mg Take 25 mg by mouth daily. [facility] metoprolol succinate XL 25 mg 24 hr tablet 10-04 00:00: 00 Yes 25mg Take 25 mg by mouth daily. [facility] metoprolol succinate XL 25 mg 24 hr tablet 10-04 00:00: 00 Yes 25mg Take 25 mg by mouth daily. [facility] metoprolol succinate XL 25 mg 24 hr tablet 10-04 00:00: 00 Yes 25mg Take 25 mg by mouth daily. [facility] metoprolol succinate XL 25 mg 24 hr tablet 10-04 00:00: 00 Yes 25mg Take 25 mg by mouth daily. [facility] metoprolol succinate XL 25 mg 24 hr tablet 10-04 00:00: 00 Yes 25mg Take 25 mg by mouth daily. [facility] traMADoL 50 mg tablet 3-12 00:00: 00 Yes 50mg Take 50 mg by mouth 3 (three) times daily. [facility] traMADoL 50 mg tablet 3-12 00:00: 00 Yes 50mg Take 50 mg by mouth 3 (three) times daily. [facility] traMADoL 50 mg tablet 3-12 00:00: 00 Yes 50mg Take 50 mg by mouth 3 (three) times daily. [facility] traMADoL 50 mg tablet 3-12 00:00: 00 Yes 50mg Take 50 mg by mouth 3 (three) times daily. [facility] traMADoL 50 mg tablet 3 00:00: 00 Yes 50mg Take 50 mg by mouth 3 (three) times daily. [facility] traMADoL 50 mg tablet 3- 00:00: 00 Yes 50mg Take 50 mg by mouth 3 (three) times daily. [facility] traMADoL 50 mg tablet 3- 00:00: 00 Yes 50mg Take 50 mg by mouth 3 (three) times daily. [facility] Methylpredn isolone 4 mg tablet 3 00:00: 00 07-07 00:00 :00 No TAKE 6 TABLETS ON DAY 1 THEN TAKE 5 TABLETS ON DAY 2 THEN TAKE 4 TABLETS ON DAY 3 THEN TAKE 3 TABLETS ON DAY 4 THEN TAKE 2 TABLETS ON DAY 5 [facility] lisinopriL 10 mg tablet 2- 00:00: 00 Yes TAKE 1 TABLET BY MOUTH ONCE DAILY IN THE EVENING DIRECTED [facility] lisinopriL 10 mg tablet 2- 00:00: 00 Yes TAKE 1 TABLET BY MOUTH ONCE DAILY IN THE EVENING DIRECTED [facility] lisinopriL 10 mg tablet 2- 00:00: 00 Yes TAKE 1 TABLET BY MOUTH ONCE DAILY IN THE EVENING DIRECTED [facility] lisinopriL 10 mg tablet 2- 00:00: 00 Yes TAKE 1 TABLET BY MOUTH ONCE DAILY IN THE EVENING DIRECTED [facility] lisinopriL 10 mg tablet 2 00:00: 00 Yes TAKE 1 TABLET BY MOUTH ONCE DAILY IN THE EVENING DIRECTED [facility] lisinopriL 10 mg tablet 2 00:00: 00 Yes TAKE 1 TABLET BY MOUTH ONCE DAILY IN THE EVENING DIRECTED [facility] lisinopriL 10 mg tablet 2 00:00: 00 Yes TAKE 1 TABLET BY MOUTH ONCE DAILY IN THE EVENING DIRECTED [facility] fluticasone 50 mcg/actuati on nasal spray 03-18 00:00: 00 Yes [id number] 2{spray } Use 2 Sprays in each nostril daily. [facility] loratadine 10 mg tablet 03-18 00:00: 00 Yes [id number] 10mg Take 1 tablet by mouth daily. [facility] fluticasone 50 mcg/actuati on nasal spray 03-18 00:00: 00 Yes [id number] 2{spray } Use 2 Sprays in each nostril daily. [facility] loratadine 10 mg tablet 03-18 00:00: 00 Yes [id number] 10mg Take 1 tablet by mouth daily. [facility] fluticasone 50 mcg/actuati on nasal spray 03-18 00:00: 00 Yes [id number] 2{spray } Use 2 Sprays in each nostril daily. [facility] loratadine 10 mg tablet 03-18 00:00: 00 Yes [id number] 10mg Take 1 tablet by mouth daily. [facility] fluticasone 50 mcg/actuati on nasal spray 03-18 00:00: 00 Yes [id number] 2{spray } Use 2 Sprays in each nostril daily. [facility] loratadine 10 mg tablet 03-18 00:00: 00 Yes [id number] 10mg Take 1 tablet by mouth daily. [facility] fluticasone 50 mcg/actuati on nasal spray 03-18 00:00: 00 Yes [id number] 2{spray } Use 2 Sprays in each nostril daily. [facility] loratadine 10 mg tablet 03-18 00:00: 00 Yes [id number] 10mg Take 1 tablet by mouth daily. [facility] fluticasone 50 mcg/actuati on nasal spray 03-18 00:00: 00 Yes [id number] 2{spray } Use 2 Sprays in each nostril daily. [facility] loratadine 10 mg tablet 03-18 00:00: 00 Yes [id number] 10mg Take 1 tablet by mouth daily. [facility] fluticasone 50 mcg/actuati on nasal spray 03-18 00:00: 00 Yes [id number] 2{spray } Use 2 Sprays in each nostril daily. [facility] loratadine 10 mg tablet 03-18 00:00: 00 Yes [id number] 10mg Take 1 tablet by mouth daily. [facility] LORazepam 0.5 mg tablet 03-04 09:40: 58 Yes .5mg Take 0.5 mg by mouth 2 (two) times daily. [facility] atorvastati n 80 mg tablet 03-04 09:40: 58 Yes 80mg Take 80 mg by mouth at bedtime. [facility] clopidogrel (PLAVIX) 75 mg tablet 01-14 10:02: 40 Yes 75mg Take 75 mg by mouth daily. [facility] aspirin 81 mg EC tablet 01-14 10:02: 40 Yes 81mg Take 81 mg by mouth daily. [facility] Vit A,C,E-Zinc- Copper (ICAPS AREDS) 14,320-226- 200 unit-mg-uni t Cap 01-14 10:02: 40 Yes 2{capsu le} Take 2 capsules by mouth daily. [facility] Vital Signs Vital Name Observation Time Observation Value Comments S ource Respiratory rate 2022-08-06 13:56:00 18 /min [facility] Oxygen saturation in Arterial blood by Pulse oximetry 2022-08-06 13:56:00 99 /min [facility] Systolic blood pressure 2022-08-06 13:33:00 119 mm[Hg] [facility] Diastolic blood pressure 2022-08-06 13:33:00 90 mm[Hg] [facility] Heart rate 2022-08-06 13:33:00 97 /[facility] Body temperature 2022-08-06 13:33:00 36.22 Stacie [facility] Body weight 2022-08-06 09:40:00 67.994 kg [facility] BMI 2022-08-06 09:40:00 29.28 kg/m2 [facility] Body height 2022-08-02 04:00:00 152.4 cm [facility] Systolic blood pressure 2022-07-07 17:46:00 105 mm[Hg] [facility] Diastolic blood pressure 2022-07-07 17:46:00 61 mm[Hg] [facility] Heart rate 2022-07-07 17:46:00 98 /min [facility] Respiratory rate 2022-07-07 17:46:00 20 /min [facility] Oxygen saturation in Arterial blood by Pulse oximetry 2022-07-07 17:46:00 98 /min [facility] Body temperature 2022-07-07 15:29:00 37.11 Stacie [facility] Body height 2022-07-07 15:29:00 149.9 cm [facility] Body weight 2022-07-07 15:29:00 68.04 kg [facility] BMI 2022-07-07 15:29:00 30.30 kg/m2 [facility] Procedures Procedure Date / Time Performed Performing Clinician Source FL BARIUM SWALLOW ESOPHAGUS 2023-06-10 15:42:00 Kasia Myers [facility] ASSIGNMENT OF BENEFITS 2023-06-10 15:06:13 Docto r Unassigned, [place] [facility] AUTHORIZATION FOR RELEASE OF PHI 2022-08-20 06:01:00 Doctor Unassigned, [place] [facility] PHOSPHORUS 2022-08-06 10:05:00 [facility] MAGNESIUM 2022-08-06 10:05:00 Micheal Ferrell [facility] BASIC METABOLIC PANEL (NA, K, CL, CO2, GLUCOSE, BUN, CREATININE, CA) 2022-08-06 10:05:00 Adri Castillo [facility] BASIC METABOLIC PANEL (NA, K, CL, CO2, GLUCOSE, BUN, CREATININE, CA) 2022-08-05 11:24:00 Vasile Mcdonald [facility] CBC WITH DIFF 2022-08-05 11:24:00 [facility] 2022-08-04 09:23:00 Vasile Mcdonald Uni [facility] BASIC METABOLIC PANEL (NA, K, CL, CO2, GLUCOSE, BUN, CREATININE, CA) 2022-08-04 09:23:00 Vasile Mcdonald [facility] CBC WITH DIFF 2022-08-04 09:23:00 Vasile Mcdonald [facility] N-TERMINAL PRO-BNP 2022-08-04 09:23:00 Shaun Mcdonald [facility] COVID-19 (ID NOW RAPID TESTING) 2022-08-03 21:12:00 Vasile Mcdonald [facility] LAB ONLY COVID INTERPRETATION 2022-08-03 21:12:00 Vasile Mcdonald [facility] POCT GLUCOSE (AUTOMATED) 2022-08-03 17:59:[facility] 2022-08-03 14:04:00 Taty Juarez [facility] MAGNESIUM 2022-08-03 09:47:00 Bharati Juarez [facility] BASIC METABOLIC PANEL (NA, K, CL, CO2, GLUCOSE, BUN, CREATININE, CA) 2022-08-03 09:47:00 Bharati Juarez [facility] CBC WITH DIFF 2022-08-03 09:47:00 Bharati Juarez [facility] N-TERMINAL PRO-BNP 2022-08-03 09:47:00 Eddie Ahuja [facility] TRANSTHORACIC ECHO (TTE) COMPLETE 2022-08-02 15:09:00 Bharati Juarez [facility] CT THORAX WO CONTRAST 2022-08-01 21:06:39 Ashish Wiley [facility] XR CHEST 1 VW 2022-08-01 18:32:02 Singer [facility] HB ECG ROUTINE & RHYTHM STRIP 2022-08-01 18:20:26 Singer [facility] TROPONIN I 2022-08-01 17:55:00 Singer [facility] COMP. METABOLIC PANEL ([id number]) 2022-08-01 17:55:00 Singer [facility] CBC WITH DIFF 2022-08-01 17:55:00 Singer [facility] N-TERMINAL PRO-BNP 2022-08-01 17:55:00 Singer [facility] CONSENT/REFUSAL FOR DIAGNOSIS AND TREATMENT 2022-08-01 17:07:49 Doctor Unassigned, [place] [facility] XR CHEST 1 VW 2022-07-07 16:51:29 Jesu Radford [facility] TROPONIN I 2022-07-07 16:01:00 [facility] COMP. METABOLIC PANEL ([id number]) 2022-07-07 16:01:00 Jesu Radford [facility] CBC WITH DIFF 2022-07-07 16:01:00 Jesu Radford [facility] PROTHROMBIN TIME / INR 2022-07-07 16:01:00 Ozzie Radford [facility] ACTIVATED PARTIAL THRMPLAS OSIEL 2022-07-07 16:01:00 Jesu Radford [facility] RAPID INFLUENZA A/B 2022-07-07 16:01:00 Ni Radford [facility] N-TERMINAL PRO-BNP 2022-07-07 16:01:00 Jesu Radford [facility] COVID-19 (ID NOW RAPID TESTING) 2022-07-07 16:01:00 Jesu Radford [facility] NOTICE OF PRIVACY PRACTICES 2022-07-07 15:22:56 Doctor Unassigned, [place] [facility] CONSENT/REFUSAL FOR DIAGNOSIS AND TREATMENT 2022-07-07 15:19:49 Doctor Unassigned, [place] [facility] Encounters Start Date/Time End Date/Time Encounter Type Admission Type Attending [facility] Care Facility Care Department Encounter ID Source 2022-02-19 11:44:08 Outpatient R KASIA KAMARA [facility] [id number] [facility] 2021-06-30 12:23:44 Outpatient [facility] [id number] [facility] 2021-01-28 14:02:50 Outpatient OSVALDO TA [facility] [id number] [facility] 2021-01-28 14:01:32 Outpatient [facility] [id number] [facility] 2023-08-30 10:00:00 2023-08-30 10:00:00 Outpatient [facility] [id number] [facility] 2023-08-30 09:00:00 2023-08-30 09:00:00 Outpatient [facility] [id number] [facility] 2023-07-31 05:26:00 2023-07-31 05:26:00 Outpatient RONAK BarraganalonzoVibha pang [facility] [id number] 94 [facility] 2023-06-10 09:06:24 2023-06-10 23:59:00 Outpatient KASIA COTTON [facility] [id number] [facility] 2023-06-10 09:06:24 2023-06-10 23:59:00 Hospital Encounter Kasia Kamara [facility] 1.840.114 350.1.13.10 4.2.7.2.686 [id number] [facility] 2023-06-10 00:00:00 2023-06-10 00:00:00 Orders Only Doctor Unassigned, [place] [facility] 1.840.114 350.1.13.10 4.2.7.2.686 [id number] [facility] 2023-06-09 00:00:00 2023-06-09 00:00:00 Outpatient R KASIA KAMARA [facility] [id number] [facility] 2022-08-20 00:00:00 2022-08-20 00:00:00 Orders Only Doctor Unassigned, [place] [facility] 1.0.114 350.1.13.10 4.2.7.2.686 [id number] [facility] 2022-08-07 00:00:00 2022-08-07 00:00:00 Transition of Care Lily Mckeon 1..114 350.1.13.10 4.2.7.2.686 [id number] [facility] 2022-08-01 11:24:00 2022-08-06 12:12:00 Inpatient X MICHEAL FERRELL [facility] [id number] [facility] 2022-08-01 11:24:00 2022-08-06 12:12:00 Hospital Encounter John Wiley, Micheal Rodriguez [facility] 1..114 350.1.13.10 4.2.7.2.686 [id number] [facility] 2022-07-07 09:30:00 2022-07-07 11:58:00 Emergency X JESU RADFORD [facility] ERT [id number] [facility] 2022-07-07 09:30:00 2022-07-07 11:58:00 Emergency Jesu Radford [facility] 1..114 350.1.13.10 4.2.7.2.686 [id number] [facility] 2022-02-27 08:15:00 2022-02-27 08:15:00 Outpatient R KASIA KAMARA [facility] [id number] [facility] 2022-01-26 14:40:00 2022-01-26 14:40:00 Outpatient Charlene JADAMUNIRA [facility] [id number] [facility] 2021-07-09 07:45:00 2021-07-09 08:33:53 Telephonic Encounter Ta Perez [facility] 1.2.840.114 350.1.13.58 9.2.7.2.686 [id number] [facility] 2020-10-24 09:30:00 2020-10-24 09:30:00 Outpatient Charlene MARILYN DENNY [facility] [id number] [facility] 2020-10-16 13:45:00 2020-10-16 13:45:00 Outpatient MARILYN WAKEFIELD [facility] [id number] [facility] 2019-03-10 00:00:00 2019-03-10 00:00:00 Orders Only Doctor Unassigned, [place] [facility] 1.2.840.114 350.1.13.10 4.2.7.2.686 [id number] 2019-03-08 11:41:44 2019-03-08 23:59:00 Hospital Encounter [facility] 1.2.840.114 350.1.13.10 4.2.7.2.686 [id number] 2019-03-08 11:35:43 2019-03-08 11:52:55 Box Toe Buffer Visit 1, [facility] 1.2.840.114 350.1.13.10 4.2.7.2.686 [id number] 2019-03-04 00:00:00 2019-03-04 00:00:00 Orders Only Doctor Unassigned, [place] [facility] 1.2.840.114 350.1.13.10 4.2.7.2.686 [id number] 2010-09-03 00:00:00 2010-09-03 11:51:48 Outpatient [facility] [id number] [facility] Results Test Description Test Time Test Comments Results Result Co mments Source LIPID PROFILE (CORONARY RISK)2023-07-31 06:32:00* Test Item Value Reference Range Interpretation Comme nts TRIGLYCERIDES (test code = TRIG) 100 MG/DL 0-150 N CHOLESTEROL (test code = CHOL) 199 MG/DL 133-200 N CHOLESTEROL/HDL RATIO (test code = CHOLHDL) 2.03 RATIO See_Comment RISK ASSOCIATED WITH CHOL/HDL RATIOS: RISK MALE FEMALE1/2 AVERAGE 3.43 3.27AVERAGE 4.97 4.442X AVERAGE 9.55 7.053X AVERAGE 23.39 11.04 NOTE THAT THE REFERENCE VALUE IS RELATED TO RISK LEVELS ASRECOMMENDED BY THE [facility]. [Automated message] The system which generated this result transmitted reference range: 0-. The reference range was not used to interpret this result as normal/abnormal. HDL CHOLESTEROL (test code = HDL) 98 MG/DL 40-59 H NON-HDL CHOLESTEROL (test code = NHDL) 101 mg/dL <130 LIPOPROTEIN LDL (test code = LDL) 95 MG/DL 0-129 N <100 [id number] 0 - 129 NEAR OPTIMAL/ABOVE [id number] - 159 [id number] - 189 HIGH>OR= 190 VERY HIGHNOTE THAT GUIDELINES ARE PROVIDED BY NATIONAL CHOLESTEROLEDUCATION PROGRAM ADULT TREATMENT PANEL III LDL/HDL (test code = LDL/HDL) 0.96 Ratio See_Comment L [Automated messa ge] The system which generated this result transmitted reference range: 1.48-3.22 Avg. The reference range was not used to interpret this result as normal/abnormal. [id number] 06:32:00* Test Item Value Reference Range Interpretation Comme nts MAGNESIUM (test code = MAG) 1.7 MG/DL 1.8-2.4 L PROTHROMBIN [id number] 06:15:00* Test Item Value Reference Range Interpretation Comme nts PT PATIENT (test code = PTP) 11.0 SECONDS 9.3-12.9 N INTERNATIONAL NORMAL RATIO (test code = INR) 0.98 INR Unit 0.8-1.2 N TARGET INR BY INDICATION Indication INR1. Prophylaxis of venous thrombosis 2.0 - 3.0 (orthopedic surgery), Prophylaxis of venous thrombosis (other than high-risk surgery), Treatment of Deep Vein Thrombosis/Pulmonary Embolism, Prevention of systemic embolism - Tissue heart valves, Acute Myocardial Infarction (to prevent systemic embolism), Valvular heart disease, Acute Myocardial Infarction (to prevent systemic embolism), Valvular heart disease, Atrial Fibrillation, Bileaflet mechanical valve in aortic position.2. Mechanical prosthetic valves (high risk), 2.5 - 3.5 Presence of Lupus Anticoagulant or Antiphospholipid Antibodies, Prevention of systemic embolism - Acute Myocardial Infarction (to prevent recurrent infarct). CBC W/AUTO [id number] 06:13:00* Test Item Value Reference Range Interpretation Comme nts WHITE BLOOD CELL (test code = WBC) 8.1 K/mm3 3.5-11.0 N RED BLOOD CELL (test code = RBC) 4.31 M/mm3 4.70-6.10 L HEMOGLOBIN (test code = HGB) 12.9 G/DL 10.4-14.9 N HEMATOCRIT (test code = HCT) 39.5 % 31.5-44.1 N MEAN CELL VOLUME (test code = MCV) 91.6 Fl 84.5-98.6 N MEAN CELL HGB (test code = MCH) 29.9 pg 27.0-34.2 N MEAN CELL HGB CONCETRATION (test code = MCHC) 32.7 G/DL 31.5-34.0 N RED CELL DISTRIBUTION WIDTH (test code = RDW) 14.6 SD 11.5-14.5 H PLATELET COUNT (test code = PLT) 249 K/mm3 150-450 N MEAN PLATELET VOLUME (test c ode = MPV) 8.80 fL 7.0-10.5 N NEUTROPHIL % (test code = NT%) 46.7 % 40-76 N IMMATURE GRANULOCYTE % (test code = IG%) 0.1 % 0.0-5.0 N LYMPHOCYTE % (test code = LY%) 39.5 % 20.5-51.1 N MONOCYTE % (test code = MO%) 10.1 % 1.7-9.3 H EOSINOPHIL % (test code = EO%) 2.7 % 0.0-6.0 N BASOPHIL % (test code = BA%) 0.9 % 0.0-2.0 N NUCLEATED RBC % (test code = NRBC%) 0.0 /100WBC% 0.0-1.0 N NEUTROPHIL # (test code = NT#) 3.8 K/mm3 1.8-7.6 N IMMATURE GRANULOCYTE # (test code = IG#) 0.01 x10 3/uL 0.00-0.03 N LYMPHOCYTE # (test code = LY#) 3.2 K/mm3 0.6-3.2 N MONOCYTE # (test code = MO#) 0.8 K/mm3 0.3-1.1 N EOSINOPHIL # (test code = EO#) 0.2 K/mm3 0.0-0.4 N BASOPHIL # (test code = BA#) 0.1 K/mm3 0.0-0.1 N NUCLEATED RBC # (test code = NRBC#) 0.0 K/mm3 0.0-0.1 N CBC WITH [id number] 15:00:57* Test Item Value Reference Range Interpretation Comme nts WBC (test code = 6690-2) 10.99 See_Comment [Automated CEDUa Balandras] The system which generated this result transmitted reference range: 4.30 - 11.10 10*3/?L. The reference range was not used to interpret this result as normal/abnormal. RBC (test code = 789-8) 3.84 See_Comment L [Automated CEDUa ge] The system which generated this result transmitted reference range: 3.93 - 5.25 10*6/?L. The reference range was not used to interpret this result as normal/abnormal. HGB (test code = 718-7) 11.2 g/dL 11.6-15.0 L HCT (test code = 4544-3) 33.2 % 35.7-45.2 L MCV (test code = 787-2) 86.5 fL 80.6-95.5 MCH (test code = 785-6) 29.2 pg 25.9-32.8 MCHC (test code = 786-4) 33.7 g/dL 31.6-35.1 RDW-SD (test code = 53592-5) 45.5 fL 39.0-49.9 RDW-CV (test code = 788-0) 14.4 % 12.0-15.5 PLT (test code = 777-3) 311 See_Comment [Automated CEDUa ge] The system which generated this result transmitted reference range: 166 - 358 10*3/?L. The reference range was not used to interpret this result as normal/abnormal. MPV (test code = 61508-8) 9.0 fL 9.5-12.9 L NRBC/100 WBC (test code = 1380131127) 0.0 See_Comment [Automated me ssage] The system which generated this result transmitted reference range: 0.0 - 10.0 /100 WBCs. The reference range was not used to interpret this result as normal/abnormal. NRBC x10^3 (test code = 9045966665) See_Comment [Automated messa ge] The system which generated this result transmitted reference range: 10*3/?L. The reference range was not used to interpret this result as normal/abnormal. GRAN MAT (NEUT) % (test code = 770-8) 57.4 % IMM GRAN % (test code = 7459508543) 5.70 % LYMPH % (test code = 736-9) 29.0 % MONO % (test code = 5905-5) 7.4 % EOS % (test code = 713-8) 0.2 % BASO % (test code = 706-2) 0.3 % GRAN MAT x10^3(ANC) (test code = 3859662434) 6.31 10*3/uL 1.88-7.09 IMM GRAN x10^3 (test code = 6107746788) 0.63 10*3/uL 0.00-0.06 H LYMPH x10^3 (test code = 731-0) 3.19 10*3/uL 1.32-3.29 MONO x10^3 (test code = 742-7) 0.81 10*3/uL 0.33-0.92 EOS x10^3 (test code = 711-2) 0.03-0.39 L BASO x10^3 (test code = 704-7) 0.03 10*3/uL 0.01-0.07 BANDS (test code = 8038040399) Increased A REACT LYMPHS (test code = 2713337522) Rare TOXIC CHANGES (test code = 803-7) Present A Lab Interpretation (test code = 10116-2) Abnormal [facility] METABOLIC PANEL (NA, K, CL, CO2, GLUCOSE, BUN, CREATININE, CA)2022-08-05 12:42:23* Test Item Value Reference Range Interpretation Comme nts NA (test code = 4587064998) 136 mmol/L 135-145 K (test code = 5801425439) 3.3 mmol/L 3.5-5.0 L CL (test code = 1474613731) 103 mmol/L 98-108 CO2 TOTAL (test code = 0638804673) 27 mmol/L 23-31 AGAP (test code = 1390126746) 6 2-16 BUN (test code = 9265180567) 34 mg/dL 7-23 H GLUCOSE (test code = 5531532672) 106 mg/dL 70-110 CREATININE (test code = 1791934325) 0.72 mg/dL 0.50-1.04 CALCIUM (test code = 0609640781) 8.3 mg/dL 8.6-10.6 L eGFR (test code = 0646544426) 76.8 mL/min/1.73m2 CHANO (test code = CHANO) Association of Glomerular Filtration Rate (GFR) and Staging of Kidney Disease* + --+ --+ ------+| GFR (mL/min/1.73 m2) ?| With Kidney Damage ?| ?Without Kidney Damage+ --------+ --------+ +| ?>90 ?| ?Stage one ?| ? Normal ?+ ---+ ---+ -------+| ?60-89 ?| ?Stage two ?| ? Decreased GFR ? + --+ --+ ------+| ?30-59 ?| ?Stage three ?| ? Stage three ? + --+ --+ ------+| ?15-29 ?| ?Stage four ? | ? Stage four ?+ ---+ ---+ -------+| ?<15 (or dialysis) ? ?| ?Stage five ? | ? Stage five ?+ ---+ ---+ -------+ *Each stage assumes the associated GFR level has been in effect for at least three months. ?Stages 1 to 5, with or without kidney disease, indicate chronic kidney disease. Notes: Determination of stages one and two (with eGFR >59mL/min/1.73 m2) requires estimation of kidney damage for at least three months as defined by structural or functional abnormalities of the kidney, manifested by either:Pathological abnormalities or Markers of kidney damage (including abnormalities in the composition of the blood or urine or abnormalities in imaging tests). Lab Interpretation (test code = 45125-4) Abnormal [facility] GLUCOSE (AUTOMATED)2022-08-03 22:56:06* Test Item Value Reference Range Interpretation Comme [facility] POCT GLU (test code = 4522188748) 127 mg/dL 70-110 H Lab Interpretation (test cod e = 29463-5) Abnormal [facility] GLUCOSE (AUTOMATED)2022-08-03 14:17:47* Test Item Value Reference Range Interpretation Comme [facility] POCT GLU (test code = 0155932542) 129 mg/dL 70-110 H Lab Interpretation (test cod e = 85452-4) Abnormal [facility] WITH OFOU9432-58-13 19:07:08* Test Item Value Reference Range Interpretation Comme nts WBC (test code = 6690-2) 9.15 See_Comment [Automated message] The system which generated this result transmitted reference range: 4.30 - 11.10 10*3/?L. The reference range was not used to interpret this result as normal/abnormal. RBC (test code = 789-8) 3.86 See_Comment L [Automated message] The system which generated this result transmitted reference range: 3.93 - 5.25 10*6/?L. The reference range was not used to interpret this result as normal/abnormal. HGB (test code = 718-7) 11.4 g/dL 11.6-15.0 L HCT (test code = 4544-3) 33.9 % 35.7-45.2 L MCV (test code = 787-2) 87.8 fL 80.6-95.5 MCH (test code = 785-6) 29.5 pg 25.9-32.8 MCHC (test code = 786-4) 33.6 g/dL 31.6-35.1 RDW-SD (test code = 81852-9) 45.9 fL 39.0-49.9 RDW-CV (test code = 788-0) 14.2 % 12.0-15.5 PLT (test code = 777-3) 252 See_Comment [Automated message] The system which generated this result transmitted reference range: 166 - 358 10*3/?L. The reference range was not used to interpret this result as normal/abnormal. MPV (test code = 77576-0) 9.0 fL 9.5-12.9 L NRBC/100 WBC (test code = 3856203176) 0.0 See_Comment [Automated message] The system which generated this result transmitted reference range: 0.0 - 10.0 /100 WBCs. The reference range was not used to interpret this result as normal/abnormal. NRBC x10^3 (test code = 3511775139) See_Comment [Automated message] The system which generated this result transmitted reference range: 10*3/?L. The reference range was not used to interpret this result as normal/abnormal. GRAN MAT (NEUT) % (test code = 770-8) 62.0 % IMM GRAN % (test code = 8865888882) 1.40 % LYMPH % (test code = 736-9) 20.7 % MONO % (test code = 5905-5) 13.4 % EOS % (test code = 713-8) 1.7 % BASO % (test code = 706-2) 0.8 % GRAN MAT x10^3(ANC) (test code = 7553167827) 5.67 10*3/uL 1.88-7.09 IMM GRAN x10^3 (test code = 1649686137) 0.13 10*3/uL 0.00-0.06 H LYMPH x10^3 (test code = 731-0) 1.89 10*3/uL 1.32-3.29 MONO x10^3 (test code = 742-7) 1.23 10*3/uL 0.33-0.92 H EOS x10^3 (test code = 711-2) 0.16 10*3/uL 0.03-0.39 BASO x10^3 (test code = 704-7) 0.07 10*3/uL 0.01-0.07 BANDS (test code = 2147610845) MARKED INCREASED A DOHLE BODIES (test code = 7792-5) Present A REACT LYMPHS (test code = 2751488918) Rare TOXIC CHANGES (test code = 803-7) Present A Lab Interpretation (test code = 94148-8) [facility] [id number] 18:36:41* Test Item Value Reference Range Interpretation Comme nts TROPONIN I (test code = 4582021311) 0.020 ng/mL <=0.034 CHANO (test code = CHANO) Reference (Normal) Range (defined by the 99th percentile reference limit): <= 0.034 ng/mL Note: Cardiac troponin begins to rise 3-4 hours after the onset of ischemia. Repeat in 4-6 hours if the sample was drawn within 3-4 hours of the onset of the symptom and found normal. Diagnosis of myocardial injury is made with acute changes in cTn concentrations with at least one serial sample above the 99th percentile upper reference limit (URL), taken together with the patient's clinical presentation. Biotin has been reported to cause a negative bias, interpret results relative to patient's use of biotin. Lab Interpretation (test code = 88488-7) Normal [facility] PLW-ALJ2553-90-04 18:35:19* Test Item Value Reference Range Interpretation Comme nts NT-proBNP (test code = 9947407585) 869 pg/mL <=450 H CHANO (test code = CHANO) Biotin has been reported to cause a negative bias, interpret results relative to patient's use of biotin. Lab Interpretation (test code = 51581-1) [facility]normal [facility]OL[facility] (46397)2022-08-01 18:25:17* Test Item Value Reference Range Interpretation Comme nts NA (test code = 6386048290) 135 mmol/L 135-145 K (test code = 2682709581) 4.6 mmol/L 3.5-5.0 CL (test code = 2355968580) 101 mmol/L 98-108 CO2 TOTAL (test code = 2858613420) 25 mmol/L 23-31 AGAP (test code = 5598715770) 9 2-16 BUN (test code = 8026964081) 19 mg/dL 7-23 GLUCOSE (test code = 3139286379) 114 mg/dL 70-110 H CREATININE (test code = 4719048519) 0.60 mg/dL 0.50-1.04 TOTAL BILI (test code = 4466863718) 1.2 mg/dL 0.1-1.1 H CALCIUM (test code = 2826705061) 8.5 mg/dL 8.6-10.6 L T PROTEIN (test code = 2525926423) 7.4 g/dL 6.3-8.2 ALBUMIN (test code = 1668314369) 4.2 g/dL 3.5-5.0 ALK PHOS (test code = 2191072467) 104 U/L 34-122 ALTv (test code = 1742-6) 23 U/L 5-35 AST(SGOT) (test code = 3835502176) 40 U/L 13-40 eGFR (test code = 4006054757) 94.8 mL/min/1.73m2 CHANO (test code = CHANO) Association of Glomerular Filtration Rate (GFR) and Staging of Kidney Disease* + --+ --+ ------+| GFR (mL/min/1.73 m2) ?| With Kidney Damage ?| ?Without Kidney Damage+ --------+ --------+ +| ?>90 ?| ?Stage one ?| ? Normal ?+ ---+ ---+ -------+| ?60-89 ?| ?Stage two ?| ? Decreased GFR ? + --+ --+ ------+| ?30-59 ?| ?Stage three ?| ? Stage three ? + --+ --+ ------+| ?15-29 ?| ?Stage four ? | ? Stage four ?+ ---+ ---+ -------+| ?<15 (or dialysis) ? ?| ?Stage five ? | ? Stage five ?+ ---+ ---+ -------+ *Each stage assumes the associated GFR level has been in effect for at least three months. ?Stages 1 to 5, with or without kidney disease, indicate chronic kidney disease. Notes: Determination of stages one and two (with eGFR >59mL/min/1.73 m2) requires estimation of kidney damage for at least three months as defined by structural or functional abnormalities of the kidney, manifested by either:Pathological abnormalities or Markers of kidney damage (including abnormalities in the composition of the blood or urine or abnormalities in imaging tests). Lab Interpretation (test code = 88368-9) Abnormal [facility] [id number] 16:38:04* Test Item Value Reference Range Interpretation Comments TROPONIN I (test code = 9335216256) 0.005 ng/mL See_Comment [Automated message] The system which generated this result transmitted reference range: <=0.034. The reference range was not used to interpret this result as normal/abnormal. CHANO (test code = CHANO) Reference (Normal) Range (defined by the 99th percentile reference limit): <= 0.034 ng/mL Note: Cardiac troponin begins to rise 3-4 hours after the onset of ischemia. Repeat in 4-6 hours if the sample was drawn within 3-4 hours of the onset of the symptom and found normal. Diagnosis of myocardial injury is made with acute changes in cTn concentrations with at least one serial sample above the 99th percentile upper reference limit (URL), taken together with the patient's clinical presentation. Biotin has been reported to cause a negative bias, interpret results relative to patient's use of biotin. Lab Interpretation (test code = 67362-3) Normal [facility] KST-JXG1894-81-10 16:34:44* Test Item Value Reference Range Interpretation Comme nts NT-proBNP (test code = 7688696751) 717 pg/mL See_Comment H [Automated message] The system which generated this result transmitted reference range: <=450. The reference range was not used to interpret this result as normal/abnormal. CHANO (test code = CHANO) Biotin has been reported to cause a negative bias, interpret results relative to patient's use of biotin. Lab Interpretation (test code = 70306-7) Abnormal [facility] THRMPLAS [id number] 16:29:01* Test Item Value Reference Range Interpretation Comme nts APTT Patient (test code = 3173-2) See_Comment [Automated message] The system which generated this result transmitted reference range: 23 - 38 Seconds. The reference range was not used to interpret this result as normal/abnormal. CHANO (test code = CHANO) The [facility] patient population mean normal value for aPTT is 30 seconds. Lab Interpretation (test code = 39479-9) Normal [facility] TIME / [id number] 16:26:59* Test Item Value Reference Range Interpretation Comme nts PROTIME PATIENT (test code = 5964-2) See_Comment [Automated CEDUa Balandras] The system which generated this result transmitted reference range: 12.0 - 14.7 Seconds. The reference range was not used to interpret this result as normal/abnormal. INR (test code = 6301-6) Normal INR <1.1; Warfarin Therapeutic range 2.0 to 3.0 or 2.5 to 3.5, depending upon the indications. Lab Interpretation (test code = 13944-0) Normal [facility]. METABOLIC PANEL (64506)2022-07-07 16:26:24* Test Item Value Reference Range Interpretation Comme [facility] NA (test code = 5778586176) 135 mmol/L 135-145 K (test code = 6972862052) 3.4 mmol/L 3.5-5.0 L CL (test code = 7867748063) 98 mmol/L 98-108 CO2 TOTAL (test code = 9516827528) 23 mmol/L 23-31 AGAP (test code = 5807203665) 2-16 BUN (test code = 7927605397) 15 mg/dL 7-23 GLUCOSE (test code = 9070437681) 114 mg/dL 70-110 H CREATININE (test code = 4966316037) 0.57 mg/dL 0.50-1.04 TOTAL BILI (test code = 9955099825) 0.6 mg/dL 0.1-1.1 CALCIUM (test code = 8782539295) 8.9 mg/dL 8.6-10.6 T PROTEIN (test code = 5886302251) 7.3 g/dL 6.3-8.2 ALBUMIN (test code = 3199491842) 4.3 g/dL 3.5-5.0 ALK PHOS (test code = 4230521707) 121 U/L 34-122 ALTv (test code = 1742-6) 20 U/L 5-35 AST(SGOT) (test code = 0290065610) 28 U/L 13-40 eGFR (test code = 2399227314) mL/min/1.73m2 CHANO (test code = CHANO) Association of Glomerular Filtration Rate (GFR) and Staging of Kidney Disease* + --+ --+ ------+| GFR (mL/min/1.73 m2) ?| With Kidney Damage ?| ?Without Kidney Damage+ --------+ --------+ +| ?>90 ?| ?Stage one ?| ? Normal ?+ ---+ ---+ -------+| ?60-89 ?| ?Stage two ?| ? Decreased GFR ? + --+ --+ ------+| ?30-59 ?| ?Stage three ?| ? Stage three ? + --+ --+ ------+| ?15-29 ?| ?Stage four ? | ? Stage four ?+ ---+ ---+ -------+| ?<15 (or dialysis) ? ?| ?Stage five ? | ? Stage five ?+ ---+ ---+ -------+ *Each stage assumes the associated GFR level has been in effect for at least three months. ?Stages 1 to 5, with or without kidney disease, indicate chronic kidney disease. Notes: Determination of stages one and two (with eGFR >59mL/min/1.73 m2) requires estimation of kidney damage for at least three months as defined by structural or functional abnormalities of the kidney, manifested by either:Pathological abnormalities or Markers of kidney damage (including abnormalities in the composition of the blood or urine or abnormalities in imaging tests). Lab Interpretation (test code = 98835-4) Abnormal [facility] WITH [id number] 16:12:21* Test Item Value Reference Range Interpretation Comme nts WBC (test code = 6690-2) See_Comment H [City Grade] The system which generated this result transmitted reference range: 4.30 - 11.10 10*3/?L. The reference range was not used to interpret this result as normal/abnormal. RBC (test code = 789-8) See_Comment [Automated SumAll] The system which generated this result transmitted reference range: 3.93 - 5.25 10*6/?L. The reference range was not used to interpret this result as normal/abnormal. HGB (test code = 718-7) 11.7 g/dL 11.6-15.0 HCT (test code = 4544-3) 35.9 % 35.7-45.2 MCV (test code = 787-2) 88.6 fL 80.6-95.5 MCH (test code = 785-6) 28.9 pg 25.9-32.8 MCHC (test code = 786-4) 32.6 g/dL 31.6-35.1 RDW-SD (test code = 41438-9) 41.7 fL 39.0-49.9 RDW-CV (test code = 788-0) 12.8 % 12.0-15.5 PLT (test code = 777-3) See_Comment [Automated messa ge] The system which generated this result transmitted reference range: 166 - 358 10*3/?L. The reference range was not used to interpret this result as normal/abnormal. MPV (test code = 19580-3) 8.3 fL 9.5-12.9 L NRBC/100 WBC (test code = 6301961991) See_Comment [Automated [employer] ssage] The system which generated this result transmitted reference range: 0.0 - 10.0 /100 WBCs. The reference range was not used to interpret this result as normal/abnormal. NRBC x10^3 (test code = 2455656494) See_Comment [Automated CEDUa ge] The system which generated this result transmitted reference range: 10*3/?L. The reference range was not used to interpret this result as normal/abnormal. GRAN MAT (NEUT) % (test code = 770-8) 75.0 % IMM GRAN % (test code = 2324798477) 0.50 % LYMPH % (test code = 736-9) 15.3 % MONO % (test code = 5905-5) 7.7 % EOS % (test code = 713-8) 1.0 % BASO % (test code = 706-2) 0.5 % GRAN MAT x10^3(ANC) (test code = 8186776698) 9.28 10*3/uL 1.88-7.09 H IMM GRAN x10^3 (test code = 3217198485) 0.06 10*3/uL 0.00-0.06 LYMPH x10^3 (test code = 731-0) 1.89 10*3/uL 1.32-3.29 MONO x10^3 (test code = 742-7) 0.95 10*3/uL 0.33-0.92 H EOS x10^3 (test code = 711-2) 0.12 10*3/uL 0.03-0.39 BASO x10^3 (test code = 704-7) 0.06 10*3/uL 0.01-0.07 Lab Interpretation (test code = 38055-6) Abnormal [facility] Notes Date/Time Note Provider Source 2023-07-31 08:42:00 [id number] ZyZqJzxCEmDvPIqvJ0ckV7MExLZ1189-91-01F71:42:15571 3-[address] [address] PATIENT NAME: ROCK GOMEZ ADMIT DATE: 07/31/23ACCOUNT NO: [id number] ROOM NO: AGE: 88 REPORT TYPE: OPERATIVE REPORT SEX: F ADMITTING PHYSICIAN: ATTENDING PHYSICIAN: Vibha Ambrose MD Cardiology OPERATION DATE: 07/31/2023 DRAGLINE OILER: Vibha Ambrose MD CORRUGATOR: INDICATION FOR THE PROCEDURE: Angina, coronary artery disease, previous stents,cardiomyopathy. Also, she had the new indication during the procedure called peripheral arterial disease and abdominal aortic aneurysm. PREOPERATIVE DIAGNOSIS: POSTOPERATIVE DIAGNOSIS: TITLE OF PROCEDURES:1. Left heart catheterization.2. Left subclavian/SCHWARTZ angiogram.3. Abdominal angiogram.4. Selective right iliac angiogram.5. Sealing device. ESTIMATED BLOOD LOSS: Minimal. COMPLICATIONS: None. CONTRAST: 120 mL. ANESTHESIA: Conscious sedation with Versed and fentanyl. 1% lidocaine for local anesthesia. FINAL DIAGNOSES:1. Heavily calcified arteries.2. Three-vessel coronary artery disease.3. Occluded distal right with collaterals from the left.4. Mild aortic stenosis.5. Normal ejection fraction.6. Tortuous aorta with small abdominal aortic aneurysm.7. Elevated left ventricular end-diastolic pressure. RECOMMENDATION: Consider bypass. PROCEDURE IN DETAIL: After informed consent, the patient was brought to the PATIENT NAME: ROCK GOMEZ cardiac catheterization lab in a stable fasting nonsedated state. She was prepped and draped in the usual sterile fashion. After conscious sedation, 1% lidocaine was administered to the right common femoral artery area for local anesthesia. A 6-Croatian sheath was placed in the right common femoral artery using standard techniques and fluoroscopy. We were not able to pass the sheath wire to the abdominal aorta, so I had to use a STORQ wire and did an angiogram of the right iliac first that showed the right iliac to be very tortuous with nosignificant disease. I did an abdominal angiogram at the end of the procedure that showed the aorta to be very tortuous, heavily calcified with a small abdominal aortic aneurysm at 2.4 cm. So I did the procedure using a STORQ wire and exchanged throughout the procedure, the catheters. So after heparinization, left coronary angiogram showed left main 35%, ostial 40% distal. There is a very small ramus intermedius that is not significant. The LAD has a hazy 80% proximal lesion followed by 75% eccentric lesion. The rest of the LAD appeared to be free of angiographic disease. The ostial and proximal circumflex had a 90% disease that gives two obtuse marginals, one small and one large. There arecollaterals from the left to the right and the collaterals supplied the PDA and the PL and the distal right is occluded, heavily calcified, possibly also been stented before. Right coronary angiogram showed a heavily calcified artery. The proximal and mid stents are open, but the distal is occluded. The RCA givesa ____ PDA earlier, but then occludes right at the distal segment. Left ventricular angiogram showed ejection fraction of 55%, normal wall motion. Leftventricular end-diastolic pressure of 33 and there was mild azsk-vc-aqsc gradient with the LV pressure 144. The aortic pressure 135 indicating mild aortic stenosis. The aortic valve was heavily calcified. The left ventricular end-diastolic pressure was elevated at 33. I did a left subclavian and SCHWARTZ angiograms. The left subclavian is heavily calcified. At the ostium, it was 40% lesion and then the SCHWARTZ is a good vessel that is suitable for bypass. The right groin was sealed using Angio-Seal. There were no complications. The patient tolerated the procedure well. She was transferred to the holding area for observation, to be discharged in few hours. We will be discussing with the patient the options of bypass for the coronaries and medical therapy for the aorta. Dictated By: Vibha Ambrose MD Date Dictated: 07/31/2023 08:42:46Date Transcribed: 07/31/2023 09:23:19SFD/MATEUSZ/Norm #: [id number] ID: [id number] by Vibha Ambrose MD On 07/31/2023 09:51:38 AM at 0951 PATIENT NAME: ROCK GOMEZ lhbwlu4772-70-61L88:23:00L.[id number] lable for patient yodtYILMYAPBKTFXHE7678-98-20O35:52:28 [facility] 2023-07-31 06:06:00 [id number]+gicYm Z6gWxKOjq9yKtU9NFD3OKmUoQo1P+ y7uslBaR5vG4qT2P6/YTdlV0CW16424-81-74P02:06:19481 [address] [place] [address] PATIENT NAME: ROCK GOMEZ ADMIT DATE: 07/31/23ACCOUNT NO: [id number] ROOM NO: AGE: 88 REPORT TYPE: eELECTROCARDIOGRAM SEX: F ADMITTING PHYSICIAN: ATTENDING PHYSICIAN: Vibha Ambrose MD Order:[id number] Reason : preop Test Date/Time Stamp:Sat Jul 31 2023 06:06:57Blood Pressure : / mmHGVent. Rate : 089 BPM Atrial Rate : 089 BPM P-R Int : 148 ms QRS Dur : 084 ms QT Int : 400 ms P-R-T Axes : 067 -02 063 degrees QTc Int : 486 ms Normal sinus rhythmNonspecific ST and T wave abnormalityAbnormal ECGNo previous ECGs availableConfirmed by VIBHA AMBROSE ([id number]) on 07/31/2023 6:35:02 AM Referred By: Vibha Ambrose Confirmed by:VIBHA AMBROSE at 0635 PATIENT NAME: ROCK GMOEZ .[id number] AVAvailable for patient svfwHLXDZXCFEBRZAS5918-09-39O62:35:21 [facility] 2023-07-30 07:37:00 [id number] h36JHZieQjt2fQXVpa1AayCzhVpzJ lzITHlrkLQovZGPu+8Z0f2OYw5p7696-06-26O76:37:49360 [address] [place] [address] PATIENT NAME: ROCK GOMEZ ADMIT DATE: ACCOUNT NO: [id number] ROOM NO: AGE: 88 REPORT TYPE: HISTORY AND PHYSICAL SEX: F ADMITTING PHYSICIAN: ATTENDING PHYSICIAN: Vibha Ambrose MD Cardiology PATIENT NAME: ROCK GOMEZ ADMIT DATE:07/31/2023DMISSION DATE: 07/31/2023 08:00:00 ADMISSION HISTORY AND PHYSICAL DRAGLINE OILER: Vibha Ambrose MD. REASON FOR ADMISSION: Angina, known coronary artery disease, worsening dyspnea,ischemia, for cardiac catheterization and possible revascularization. HISTORY OF PRESENT ILLNESS: Rock is an 88-year-old lady with long history ofcoronary artery disease. The patient has been seeing me since 10/04/2018.Recently, she has been having worsening dyspnea and worsening jaw discomfort,typical of angina. The patient underwent a noninvasive workup with a chemicalnuclear stress test on 07/28/2023 that showed cardiomyopathy, which is new forthe patient. Ejection fraction was 34%. She had severe inferolateral,posterolateral ischemia. Her last echocardiogram this June was showingejection fraction of 55 to 60%. She had moderate mitral regurgitation. She hadno wall motion abnormalities. So, the patient has definite significant ischemiaalong with her symptoms. The patient has known coronary artery disease,diagnosed back on 08/31/2011 at which time she was according to the old records,which are in complete showed triple vessel coronary artery disease and showedthat she has had 3 stents at that time, but there is no details of where and howmany arteries and what the size of the stents, no details on that procedure.She had a carotid Doppler in my office in 2021 that showed less than 50%disease. The patient is here today for cardiac catheterization to assess hercoronaries and to assess her ischemia and the reason for the worsening ejectionfraction with the nuclear stress test. PAST MEDICAL HISTORY: Remarkable for hypertension, hyperlipidemia,osteoarthritis, asthma, anxiety, sciatica, chronic sinusitis, and allergies. PAST SURGICAL HISTORY: She has had colonoscopies, gastrointestinal perforationrepair in 2007, hernia surgery 2009, cataracts and the stents mentioned above [id number]. ALLERGIES: PENICILLIN, CODEINE, AND TETANUS SHOTS. MEDICATIONS: Atorvastatin 80 mg daily, aspirin 81 mg daily, montelukast 10 mgdaily, lorazepam as needed, metoprolol 25 mg daily, clopidogrel 75 mg daily, andlosartan 100 mg daily. PATIENT NAME: ROCK GOMEZ SOCIAL HISTORY: The patient does not smoke, drink, or use street drugs. FAMILY HISTORY: Positive for atherosclerotic cardiovascular disease. REVIEW OF SYSTEMS: Remarkable for the above, especially allergies, decreasedhearing, dizziness, sciatica, arthritis, anxiety, depression, numbness. Noacute GI or symptoms. No TIAs or strokes. No congestive heart failuresymptoms. PHYSICAL EXAMINATION:GENERAL: Reveals a pleasant elderly lady in no acute distress.VITAL SIGNS: Blood pressure 136/88, pulse 73 and regular, respiratory rate 16and unlabored, temperature afebrile.HEENT: Head atraumatic, normocephalic. Eyes and ENT examination within normalfor age.NECK: Supple, no jugular venous distention, bruits or lymphadenopathy. Normalupstroke.LUNGS: Clear and resonant. Decreased air entry at the bases noted.HEART: Regular rate and rhythm with 2/6 systolic ejection murmur at the leftlower sternal border. No gallops.ABDOMEN: Soft, no tenderness, no organomegaly, no masses or bruits.EXTREMITIES: 2+ distal pulses. No edema, cyanosis, or clubbing.NEUROLOGIC: Alert and oriented x3. Examination appears to be nonfocal. LABORATORY DATA: Pending. Noninvasive cardiovascular workup enclosed. IMPRESSION: This is an 88-year-old lady with known coronary artery disease andhistory of 3 stents back in 2011. She is on maximal medical therapy. Shepresents with worsening dyspnea and angina with jaw discomfort. She hassignificantly abnormal nuclear stress test with depressed ejection fraction withthe nuclear and severe inferolateral and posterolateral ischemia, which ischanged from previous evaluation in 2021. The patient definitely appears tohave worsening coronary artery disease. She may benefit from revascularizationdespite the patient's advanced age. PLAN: The recommendation is to proceed with left heart catheterization andpossible revascularization. The risks and benefits of the planned procedureswere discussed in detail with the patient and available family members and sheis willing to proceed. Rest as per orders. Dictated By: Vibha Ambrose MD Date Dictated: 07/30/2023 07:37:04Date Transcribed: 07/30/2023 08:05:07SILENE/Nandini #: [id number] ID: [id number] and Edited by Vibha Ambrose MD On 07/30/23 6:40:04 PM at 0640 PATIENT NAME: ROCK GOMEZ and physical [id number] VAvailable for patient [id number]:41:36 HCAPM"
[2023-08-09 04:03] LABS: Protime INR 1.01
[2023-08-09 04:04] LABS: Absolute Lymphocytes (CBC) 1.3 K/uL (0.7-4.9); Hematocrit 37.2 % (36.0-45.0); MCV 89.8 fL (80-100); MPV 7.1 fL (7.6-11.3); Platelets 313 thou/uL (152-406); RBC Red Blood Cell Count 4.15 M/uL (3.86-4.86)
[2023-08-09 04:16] LABS: Potassium 3.5 mEq/L (3.5-5.1); Troponin High Sensitivity 329.8 pg/mL (<58.9)
--- NOTE | 2023-08-09 04:31 | EDPHYS ---
Physician Documentation [facility] Name: Adrienne Phelan Age: 88 yrs Sex: Female : 1935 Arrival Date: 08/09/2023 Time: 03:30 Bed 13 Private MD: ED Physician Virgil Kelly HPI: 08/09 03:36 This 88 yrs old Female presents to ER via Unassigned with complaints of Chest Pain, rn Shortness Of Breath. 03:36 The patient or guardian reports chest pain that is located primarily in the substernal rn area. Onset: 2 week(s) ago. The pain radiates to left neck. Associated signs and symptoms: Pertinent positives: diaphoresis, shortness of breath, Pertinent negatives: abdominal pain, cough, syncope, vomiting. The chest pain is described as a heaviness. Duration: The patient or guardian reports multiple episodes, that are intermittent. Modifying factors: The symptoms are alleviated by nothing. the symptoms are aggravated by emotionally stressful situations. Severity of pain: At its worst the pain was moderate in the emergency department the pain is unchanged. The patient has experienced similar episodes in the past. Patient reports intermittent chest heaviness and shortness of breath for the last 2 weeks. Has history of 3 cardiac stents. No MD in the past. Recently seen cardiology at [facility] in [place] and was told needs triple bypass surgery. Was supposed to find out in the morning when her surgery is going to be scheduled for. Increased chest pain and shortness of breath tonight with anxiety as well. No fever no recent illness. No trauma. No abdominal pain.. Historical: - Allergies: 03:47 Codeine; lg3 03:47 PENICILLINS; lg3 03:47 Tetanus Vaccines and Toxoid; lg3 - Home Meds: 03:47 hyoscyamine sulfate 0.125 mg sublingual Tablet, Sublingual [Active]; montelukast 10 mg lg3 oral tablet [Active]; naproxen 500 mg Oral tablet [Active]; famotidine 20 mg Oral tablet [Active]; metoprolol tartrate 25 mg Oral tablet [Active]; lorazepam 0.5 mg Oral tablet [Active]; clopidogrel 75 mg oral tablet [Active]; atorvastatin 80 mg oral tablet [Active]; doxepin 25 mg Oral capsule [Active]; losartan 100 mg oral tablet [Active]; aspirin 81 mg Oral capsule [Active]; - PMHx: 03:47 cardiac stents 3; colostomy with reversal; Hypertension; lg3 - PSHx: 03:47 Appendectomy; Tonsillectomy; Adenoid excision; lg3 - Immunization history:: Adult Immunizations up to date, Client reports having NOT received the Covid vaccine. Flu vaccine is not up to date. - Social history:: Smoking status: Patient/guardian denies using tobacco, but has a distant history of tobacco abuse, Patient/guardian denies using alcohol, street drugs. - Family history:: not pertinent. - Hospitalizations: : No recent hospitalization is reported. ROS: 03:36 Constitutional: Negative for fever, chills, and weight loss, Eyes: Negative for injury, rn pain, redness, and discharge, Neck: Negative for injury, pain, and swelling, Cardiovascular: Positive for chest pain Respiratory: Positive for shortness of breath Abdomen/GI: Negative for abdominal pain, nausea, vomiting, diarrhea, and constipation, Back: Negative for injury and pain, MS/Extremity: Negative for injury and deformity, Skin: Negative for injury, rash, and discoloration, Neuro: Negative for headache, weakness, numbness, tingling, and seizure, Exam: 03:36 Constitutional: This is a well developed, well nourished patient who is awake, alert, rn appears anxious and hyperventilating Head/Face: Normocephalic, atraumatic. Cardiovascular: Tachycardic, reg rhythm. No pulse deficits. Respiratory: Mild tachypnea, clear bilateral breath sounds Abdomen/GI: Soft, non-tender MS/ Extremity: Pulses equal, no cyanosis. Neurovascular intact. Full, normal range of motion. Equal circumference. Neuro: Awake and alert, GCS 15 Vital Signs: 03:41 BP 150 / 90; Pulse 105; Resp 19 S; Temp 97.4(O); Pulse Ox 100% on R/A; Weight 68.04 kg lg3 (R); Height 5 ft. 0 in. (R); 04:44 BP 130 / 83; Pulse 108; Resp 18 S; Pulse Ox 100% on 2 lpm NC; kc6 05:54 BP 120 / 76; Pulse 101; Resp 18 S; Pulse Ox 100% on 2 lpm NC; kc6 03:41 Body Mass Index 29.29 (68.04 kg, 152.4 cm) lg3 MDM: 03:35 Patient medically screened. rn 04:28 ED course: Chest x-ray read by radiologist as possible pneumonia with pleural rn effusions. Clinically however patient does not sound like pneumonia. She is afebrile. Normal WBC. Presents with chest pain and recent abnormal cardiac workup. Also history of aortic stenosis. Much more likely that this is pulmonary edema but will cover with antibiotics just in case. Was scheduled for cardiac bypass [facility], will attempt transfer there for hydrotreater operator or cardiothoracic surgeon.. 04:28 Differential diagnosis: acute myocardial infarction, acute pericarditis, anxiety, rn coronary artery disease pericarditis, pneumothorax, stable angina, unstable angina. 04:32 HEART Score: History: Highly Suspicious (2), ECG: Non specific repolarization rn disturbance / LBTB / PM (1), Age: > or = 65 years (2), Risk Factors: > or = 3 Risk factors for atherosclerotic disease (2), Troponin: > or = 3 x Normal Limit (2), Total Score = 9. The patient was given aspirin in the Emergency Department. Data reviewed: vital signs, nurses notes, lab test result(s), EKG, radiologic studies, plain films, and as a result, I will admit patient. Consideration of Admission/Observation Patient was admitted/placed on observation. Escalation of care including admission/observation considered. Counseling: I had a detailed discussion with the patient and/or guardian regarding the historical points, exam findings, and any diagnostic results supporting the discharge/admit diagnosis, lab results, radiology results, the need for further work-up and treatment in the hospital, the need to transfer to another facility, for higher level of care. ED course: Patient auto accepted transfer to [facility]. 04:32 ED course: I personally spent 35 minutes engaged in work directly related to the rn individual patient's care. This does not include any time spent performing procedures. The patient has been deemed critically ill because of acute onset chest pain, NSTEMI, acute pulmonary edema requiring review of all outpatient records that she brought in including recent cardiac cath records, stabilization and transfer for higher level of care.. 08/09 03:35 Order name: Basic Metabolic Panel; Complete Time: 04:18 rn 08/09 03:35 Order name: CBC with Diff; Complete Time: 04:16 rn 08/09 03:35 Order name: NT PRO-BNP; Complete Time: 04:18 rn 08/09 03:35 Order name: PT-INR; Complete Time: 04:33 rn 08/09 03:35 Order name: Troponin HS; Complete Time: 04:18 rn 08/09 04:25 Order name: PTT, Activated Partial Thromb; Complete Time: 04:33 EDMS 08/09 03:35 Order name: XRAY Chest (1 view) rn 08/09 03:35 Order name: EKG; Complete Time: 03:36 rn 08/09 03:35 Order name: Cardiac monitoring; Complete Time: 03:38 rn 08/09 03:35 Order name: EKG - Nurse/Tech; Complete Time: 03:38 rn 08/09 03:35 Order name: IV Saline Lock; Complete Time: 03:38 rn 08/09 03:35 Order name: Labs collected and sent; Complete Time: 03:38 rn 08/09 03:35 Order name: O2 Per Protocol; Complete Time: 03:38 rn 08/09 03:35 Order name: O2 Sat Monitoring; Complete Time: 03:38 rn Administered Medications: 04:30 Drug: Heparin (MD Drip) 12 units/kg/hr - ([place] [address] units, D5W IV 500 ml) IV at lg3 calculated rate Per protocol; Max initial rate 1000 units/hr {Co-Signature: kc6 (Trinity Amador RN).} Route: IV; Rate: calculated rate; Site: right antecubital; 05:55 Follow up: Response: No adverse reaction; IV Status: Infusion continued upon transfer; kc6 IV Intake: 500ml 04:30 Drug: Heparin (MD-Bolus No thrombolytic) - HEParin IVP 60 units/kg IVP once; Max 5000 lg3 units {Co-Signature: kcAbel (Trinity Amdaor RN).} Route: IVP; Site: right antecubital; 05:55 Follow up: Response: No adverse reaction kc6 04:30 Drug: Furosemide IVP 40 mg IVP once; give over 2 minutes Route: IVP; Site: right lg3 antecubital; 05:55 Follow up: Response: No adverse reaction kc6 04:30 Drug: levofloxacin IVPB 750 mg 150 ml IVPB once over 90 mins Volume: 150 ml; Route: lg3 IVPB; Infused Over: 90 mins; Site: left antecubital; 05:55 Follow up: Response: No adverse reaction; IV Status: Completed infusion; IV Intake: kc6 150ml 04:43 Drug: Aspirin PO Chewable Tablet 324 mg PO once; 81 mg tablets x 4 Route: PO; kc6 05:54 Follow up: Response: No adverse reaction [facility] 05:15 Drug: Diazepam PO 2 mg PO once Route: PO; kc6 05:54 Follow up: Response: No adverse reaction; Anxiety decreased; RASS: Alert and Calm (0) kc6 Disposition: 04:28 Critical Care:. rn Disposition Summary: 08/09/23 04:30 Transfer Ordered Notes: Transfer Location: Other Acute Care Facility rn Reason: Higher level of care rn Condition: Stable rn Problem: new rn Symptoms: have improved rn Accepting Physician: (08/09/23 06:39) kc6 Diagnosis - Subsequent non-ST elevation (NSTEMI) myocardial infarction rn - Acute pulmonary edema rn Forms: - Medication Reconciliation Form rn - SBAR form internal security manager time excluding procedures: 04:28 Critical care time: Bedside Care: 35 minutes. Total time: 35 minutes rn Signatures: Dispatcher [employer] EDMS Virgil Kelly MD MD rn Able, Lacie, RN RN lg3 Trinity Amador RN RN kc6 Trinity Amador RN kc6 Corrections: (The following items were deleted from the chart) 03:47 03:36 Constitutional: This is a well developed, well nourished patient who is awake, rn alert, appears anxious and hyperventilating Head/Face: Normocephalic, atraumatic. Cardiovascular: Regular rate and rhythm. No pulse deficits. Respiratory: Mild tachypnea, clear bilateral breath sounds Abdomen/GI: Soft, non-tender MS/ Extremity: Pulses equal, no cyanosis. Neurovascular intact. Full, normal range of motion. Equal circumference. Neuro: Awake and alert, GCS 15 rn 04:25 04:18 PTT, ACTIVATED+COAG.LAB.BRZ ordered. [facility] 04:33 04:32 ED course: I personally spent 35 minutes engaged in work directly related to the rn individual patient's care. This does not include any time spent performing procedures. The patient has been deemed critically ill because of acute onset chest pain, NSTEMI, acute pulmonary edema requiring stabilization and transfer for higher level of care.. matthew 06:39 04:30 Dr. castro kc6
--- NOTE | 2023-08-09 04:31 | ER ---
Nurse's Notes [facility] Name: Adrienne Phelan Age: 88 yrs Sex: Female : 1935 Arrival Date: 08/09/2023 Time: 03:30 Bed 13 Private MD: Diagnosis: Subsequent non-ST elevation (NSTEMI) myocardial infarction;Acute pulmonary edema Presentation: 08/09 03:41 Chief complaint: Patient states: SOB with chest pressure X2 weeks worsening 1HR [employer] [place] lg3 with new onset jaw pain. scheduled for triple bypass with [facility]. Coronavirus screen: Client denies travel out of the [place] in the last 14 days. At this time, the client does not indicate any symptoms associated with coronavirus-19. Ebola Screen: No symptoms or risks identified at this time. Initial Sepsis Screen: Does the patient meet any 2 criteria? No. Patient's initial sepsis screen is negative. Does the patient have a suspected source of infection? No. Patient's initial sepsis screen is negative. Risk Assessment: Do you want to hurt yourself or someone else? Patient reports no desire to harm self or others. Onset of symptoms was August 09, 2023. 03:41 Method Of Arrival: Wheelchair lg3 03:41 Acuity: JASON 3 lg3 Triage Assessment: 03:47 General: Appears in no apparent distress. uncomfortable, Behavior is cooperative, lg3 anxious. Pain: Complains of pain in chest, jaw, left arm. EENT: No deficits noted. No signs and/or symptoms were reported regarding the EENT system. Neuro: Emanuel Agitation-Sedation Scale (RASS): +1 Restless Level of Consciousness is awake, alert, obeys commands, Oriented to person, place, time, situation. Cardiovascular: Reports chest pain, shortness of breath, Rhythm is sinus tachycardia. Respiratory: Reports shortness of breath Airway is patent Respiratory effort is even, unlabored, Respiratory pattern is hyperventilation. GI: No deficits noted. No signs and/or symptoms were reported involving the gastrointestinal system. : No deficits noted. No signs and/or symptoms were reported regarding the genitourinary system. Derm: No deficits noted. No signs and/or symptoms reported regarding the dermatologic system. Skin is intact, is healthy with good turgor, Skin is dry, Skin is normal, Skin temperature is warm. Musculoskeletal: No deficits noted. No signs and/or symptoms reported regarding the musculoskeletal system. Circulation, motion, and sensation intact. Range of motion: intact in all extremities. Historical: - Allergies: 03:47 Codeine; lg3 03:47 PENICILLINS; lg3 03:47 Tetanus Vaccines and Toxoid; lg3 - Home Meds: 03:47 hyoscyamine sulfate 0.125 mg sublingual Tablet, Sublingual [Active]; montelukast 10 mg lg3 oral tablet [Active]; naproxen 500 mg Oral tablet [Active]; famotidine 20 mg Oral tablet [Active]; metoprolol tartrate 25 mg Oral tablet [Active]; lorazepam 0.5 mg Oral tablet [Active]; clopidogrel 75 mg oral tablet [Active]; atorvastatin 80 mg oral tablet [Active]; doxepin 25 mg Oral capsule [Active]; losartan 100 mg oral tablet [Active]; aspirin 81 mg Oral capsule [Active]; - PMHx: 03:47 cardiac stents 3; colostomy with reversal; Hypertension; lg3 - PSHx: 03:47 Appendectomy; Tonsillectomy; Adenoid excision; lg3 - Immunization history:: Adult Immunizations up to date, Client reports having NOT received the Covid vaccine. Flu vaccine is not up to date. - Social history:: Smoking status: Patient/guardian denies using tobacco, but has a distant history of tobacco abuse, Patient/guardian denies using alcohol, street drugs. - Family history:: not pertinent. - Hospitalizations: : No recent hospitalization is reported. Screenin:41 [facility] ED Fall Risk Assessment (Adult) History of falling in the last 3 months, kc6 including since admission No falls in past 3 months (0 pts) Confusion or Disorientation No (0 pts) Intoxicated or Sedated No (0 pts) Impaired Gait No (0 pts) Mobility Assist Device Used No (0 pt) Altered Elimination No (0 pt) Score/Fall Risk Level 0 - 2 = Low Risk. Abuse screen: Denies threats or abuse. Denies injuries from another. Nutritional screening: No deficits noted. Tuberculosis screening: No symptoms or risk factors identified. Assessment: 03:44 General: Appears in no apparent distress. uncomfortable, well groomed, well developed, kc6 Behavior is cooperative, appropriate for age, anxious, Reports feeling ill for. Pain: Complains of pain in chest and left arm and left jaw Pain radiates to left arm Pain began 2 weeks ago. Neuro: Level of Consciousness is awake, alert, obeys commands, Oriented to person, place, time, situation, Appropriate for age Reports weakness generalized. Cardiovascular: Reports chest pain, shortness of breath, Heart tones S1 S2 present Capillary refill < 3 seconds Rhythm is sinus tachycardia. Respiratory: Airway is patent Trachea midline Respiratory effort is even, labored, Respiratory pattern is regular, symmetrical. GI: No signs and/or symptoms were reported involving the gastrointestinal system. : No signs and/or symptoms were reported regarding the genitourinary system. EENT: No signs and/or symptoms were reported regarding the EENT system. Derm: No signs and/or symptoms reported regarding the dermatologic system. Skin is intact, is healthy with good turgor, Skin is pink, warm \T\ dry. Musculoskeletal: No signs and/or symptoms reported regarding the musculoskeletal system. Circulation, motion, and sensation intact. Capillary refill < 3 seconds, Range of motion: intact in all extremities. 04:44 Reassessment: Patient appears in no apparent distress at this time. No changes from kc6 previously documented assessment. Patient and/or family updated on plan of care and expected duration. Pain level reassessed. Patient is alert, oriented x 3, equal unlabored respirations, skin warm/dry/pink. 05:54 Reassessment: Patient appears in no apparent distress at this time. No changes from kc6 previously documented assessment. Patient and/or family updated on plan of care and expected duration. Pain level reassessed. Patient is alert, oriented x 3, equal unlabored respirations, skin warm/dry/pink. Vital Signs: 03:41 BP 150 / 90; Pulse 105; Resp 19 S; Temp 97.4(O); Pulse Ox 100% on R/A; Weight 68.04 kg lg3 (R); Height 5 ft. 0 in. (R); 04:44 BP 130 / 83; Pulse 108; Resp 18 S; Pulse Ox 100% on 2 lpm NC; kc6 05:54 BP 120 / 76; Pulse 101; Resp 18 S; Pulse Ox 100% on 2 lpm NC; kc6 03:41 Body Mass Index 29.29 (68.04 kg, 152.4 cm) lg3 ED Course: 03:31 Patient arrived in ED. jj6 03:35 Virgil Kelly MD is Attending Physician. rn 03:37 Trinity Amador, RN is Primary Nurse. kc6 03:41 Inserted saline lock: 20 gauge in right antecubital area, using aseptic technique. kc6 Blood collected. Oxygen administration via nasal cannula \T\ 2L/min. 03:41 Patient has correct armband on for positive identification. Bed in low position. Call kc6 light in reach. Side rails up X2. Adult w/ patient. Client placed on continuous cardiac and pulse oximetry monitoring. NIBP monitoring applied. property assessment monitor on. 03:47 Triage completed. lg3 03:47 Arm band placed on right wrist. lg3 03:50 XRAY Chest (1 view) In Process Unspecified. EDMS 04:16 Notified ED physician of a critical lab result(s). 329.8. kc6 04:28 INITIATED TRANSFER WITH DAVIE AT [facility]. PT WAS AUTO ACCEPTED TO [facility], \T\[id number]. [facility] TO TRANSPORT PT AFTER SHIFT CHANGE PER [facility]. 04:36 Inserted saline lock: 20 gauge in left forearm, using aseptic technique. Blood rv1 collected. 06:38 No provider procedures requiring assistance completed. Patient transferred, IV remains kc6 in place. Administered Medications: 04:30 Drug: Heparin (AL Drip) 12 units/kg/[place] - ([place] [address] units, D5W IV 500 ml) IV at lg3 calculated rate Per protocol; Max initial rate 1000 units/hr {Co-Signature: kim (Trinity Amador RN).} Route: IV; Rate: calculated rate; Site: right antecubital; 05:55 Follow up: Response: No adverse reaction; IV Status: Infusion continued upon transfer; kc6 IV Intake: 500ml 04:30 Drug: Heparin (AL-Bolus No thrombolytic) - HEParin IVP 60 units/kg IVP once; Max 5000 lg3 units {Co-Signature: kim (Trinity Amador RN).} Route: IVP; Site: right antecubital; 05:55 Follow up: Response: No adverse reaction kc6 04:30 Drug: Furosemide IVP 40 mg IVP once; give over 2 minutes Route: IVP; Site: right lg3 antecubital; 05:55 Follow up: Response: No adverse reaction kc6 04:30 Drug: levofloxacin IVPB 750 mg 150 ml IVPB once over 90 mins Volume: 150 ml; Route: lg3 IVPB; Infused Over: 90 mins; Site: left antecubital; 05:55 Follow up: Response: No adverse reaction; IV Status: Completed infusion; IV Intake: kc6 150ml 04:43 Drug: Aspirin PO Chewable Tablet 324 mg PO once; 81 mg tablets x 4 Route: PO; kc6 05:54 Follow up: Response: No adverse reaction kc6 05:15 Drug: Diazepam PO 2 mg PO once Route: PO; kc6 05:54 Follow up: Response: No adverse reaction; Anxiety decreased; RASS: Alert and Calm (0) kc6 Medication: 06:39 VIS not applicable for this client. kc6 Intake: 05:55 IV: 150ml; Total: 150ml. kc6 05:55 IV: 500ml; Total: 650ml. kc6 Outcome: 04:30 ER care complete, transfer ordered by . rn 06:38 Transferred by ground EMS Transfer form completed. Note: report called to JUAN Greer 06:38 Condition: stable 06:38 Instructed on the need for transfer, 06:39 Patient left the ED. kc6 Signatures: Dispatcher [employer] EDMS Virgil Kelly MD MD rn Able, Lacie, RN RN lg3 Darcy Rolon Kaitlyn, RN RN kc6 Silvia Gomez [facility] Reshma Wolff [facility] Trinity Amador RN
[2023-08-09 06:52] VITALS: BP 120/76; TEMP 97.4; O2SAT 100
--- NOTE | 2023-08-09 10:47 | RAD REPORT ---
EXAM DESCRIPTION: RAD - Chest Single View - 08/09/2023 3:48 am CLINICAL HISTORY: Dyspnea;Chest pain COMPARISON: 08/19/2022. TECHNIQUE: XR CHEST 1 VIEW 08/09/2023 3:35 AM CLOTHES SHAKER FINDINGS: The heart is enlarged. There is bibasilar airspace disease. There are small pleural effusi ons. There is no pneumothorax. There are no acute osseous findings. IMPRESSION: Bibasilar pneumonia with pleural effusions. Electronically signed by: Jarad Mosley MD 08/09/2023 04:13 AM CLOTHES SHAKER Due to temporary technical issues with the PACS/Fluency reporting system, reports are being signed by the in house radiologist without review as a courtesy to ensure prompt reporting. The interpreting r adiologist is fully responsible for the content of the report.
--- NOTE | 2023-08-09 13:33 | EKG ---
Test Date: 2023-08-09 Test Time: 03:36:55 Cutter Down: RV MEASUREMENT RESULTS: Intervals: Rate: 108 TX: 138 QRSD: 84 QT: 352 QTc: 471 [place]: P: 50 TX: 138 QRS: -26 T: 58 INTERPRETIVE STATEMENTS: Sinus tachycardia Nonspecific ST and T wave abnormality Abnormal ECG Compared to ECG 08/09/2023 03:36:32 Atrial premature complex(es) no longer present ST (T wave) deviation still present Electronically Signed On 08-09-23 13:32:04 ELECTRONIC SENSING EQUIPMENT ASSEMBLER by Vinny Bains
--- NOTE | 2023-08-09 13:33 | EKG ---
Test Date: 2023-08-09 Test Time: 03:36:32 Alternative Energy Engineer: RV MEASUREMENT RESULTS: Intervals: Rate: 109 SD: 136 QRSD: 80 QT: 358 QTc: 482 [place]: P: 49 SD: 136 QRS: -24 T: 51 INTERPRETIVE STATEMENTS: Sinus tachycardia with premature supraventricular complexes Nonspecific ST and T wave abnormality Abnormal ECG Compared to ECG 08/13/2020 02:16:44 Atrial premature complex(es) now present ST (T wave) deviation now present Electronically Signed On 08-09-23 13:32:05 VIDEOTAPE OPERATOR by Vinny Bains
== END ==
LOC: ER 03:30
DX: I22.2 Subsequent non-ST elevation (NSTEMI) myocardial infarction (principal); I21.9 Acute myocardial infarction, unspecified; J81.0 Acute pulmonary edema; I10 Essential (primary) hypertension; Z95.818 Presence of other cardiac implants and grafts; Z79.82 Long term (current) use of aspirin; Z88.0 Allergy status to penicillin; Z88.5 Allergy status to narcotic agent; Z88.7 Allergy status to serum and vaccine
CPT/HCPCS: 93005 ×2; 85025; 80048; 36415; 85610; 85730; 84484; 83880; 71045; J1644; J1940

== ENCOUNTER 2024-05-27 05:58 | Inpatient (IN) | payer OTHER, MEDICARE ==
--- OUTSIDE RECORDS SUMMARY | 2024-05-27 06:06 | XMS REPORT | Continuity of Care Document ---
Author Name Unknown Address [address] [facility] [place] [address] [facility] thconnect Address [address] [facility] [place] [address] Care Team Providers Care Clerical Office Name Role Phone Ta Perez MD Primary Care Physician ANNE CANDELARIA Attending Clinician TA Wiggins Attending Clinician Unavailable King Montiel Attending Clinician Unavailable [email or web address]_A1 Attending Clinician Unavailable ABIODUN LOW NATASHA Attending Clinician Unava Marianne Martinez Attending Clinician Unavailable Gianna Ambrose Cardiology Attending Clinician Unavailable Anne Candelaria MD Attending Clinician [phone] Doctor Unassigned, [place] Attending Clinician U shakir Mckeon RN, Lily Lopez Attending Clinician Unavailab HE Hancock Attending Clinician Unavailable John Wiley DO Attending Clinician [phone] Bharati Juarez DO Attending Clinician [phone] He Sylvester MD Attending Clinician [phone] JESU RADFORD Attending Clinician Unavailable Jesu Radford MD Attending Clinician [phone] MUNIRA ELIAS Attending Clinician Unavailable MARILYN DENNY Attending Clinician Unavaildavid e Radiology Attending Clinician Unavailable 1, [facility] Attending Clinician Unavailable ANNE CANDELARIA Admitting Clinician UnaMarianne Staples Admitting Clinician Unavailable YOUSUF_A1 Admitting Clinician Unavailable ABIODUN LOW NATASHA Admitting Clinician UnaDarcy Campoverde Admitting Clinician Unavailable BHARATI JUAREZ Admitting Clinician Unavailable Bharati Juarez DO Admitting Clinician [phone] JESU RADFORD Admitting Clinician Unavailable Payers Payer Name Policy Type Policy Number Effective Date Expirati on Date Source MEDICARE PART A \\T\\ [id number] 2001 00:00:00 [facility] MEDICARE SUPPLEMENT [id number] 2015 00:00:00 MEDICARE PART A AND B [id number] 2001 00:00:00 [place]: [employer] [id number] 2023 00:00:00 [facility] HEALTHCARE OPTIONS (MEDICARE SUPPLEMENT) [id number] 2023 00:00:00 [facility] MCR [id number] AAR AAR [id number] Problems Condition Name Condition Details Condition Category Status Onset Date Resolution Date Last Treatment Date Treating Clinician Comments Source Pulmonary hypertensi on Pulmonary hypertensi on Disease Active 08-03 00:00: 00 [facility] Aortic stenosis Aortic stenosis Disease Active 08-02 00:00: 00 [facility] Essential hypertensi on Essential hypertensi on Disease Active 08-02 00:00: 00 [facility] Dyslipidem ia Dyslipidem ia Disease Active 08-02 00:00: 00 [facility] (HFpEF) heart failure with preserved ejection fraction (HFpEF) heart failure with preserved ejection fraction Disease Active 2023-0 2-05 00:00: 00 [facility] CHF NYHA class II (symptoms with moderately strenuous activities ), unspecifie d failure chronicity , unspecifie d type CHF NYHA class II (symptoms with moderately strenuous activities ), unspecifie d failure chronicity , unspecifie d type Disease Active 2-04 00:00: 00 [facility] Bronchopne umonia Bronchopne umonia Disease Active 2- 00:00: 00 [facility] COPD with acute exacerbati on COPD with acute exacerbati on Disease Active 2 00:00: 00 [facility] Allergic bronchitis with acute exacerbati on Allergic bronchitis with acute exacerbati on Disease Active 08-01 00:00: 00 [facility] Coronary artery disease involving [place] coronary artery of [place] heart without angina pectoris Coronary artery disease involving [place] coronary artery of [place] heart without angina pectoris Disease Active 03-04 00:00: 00 [facility] Coronary artery disease involving [place] coronary artery of [place] heart without angina pectoris Coronary artery disease involving [place] coronary artery of [place] heart without angina pectoris Disease Active 03-04 00:00: 00 [facility] Mixed hyperlipid emia Mixed hyperlipid emia Disease Active 03-04 00:00: 00 [facility] Anxiety Anxiety Disease Active 03-04 00:00: 00 [facility] Allergies, Adverse Reactions, Alerts Allergy Name Allergy Type Status Severity Reaction(s) Onset Date Inactive Date Treating Clinician Comments Source Penicill ins DA Active SV RASH 08-09 00:00: 00 [facility] are [facility] Tetanus Vaccines and Toxoid DA Active SV RASH 08-09 00:00: 00 [facility] are [facility] st codeine DA Active SV HIVE 08-09 00:00: 00 [facility] are [facility] diphenhy dramine DA Active SV RASH 08-09 00:00: 00 [facility] are [facility] Diphenhy dramine Allergy to substanc e Active Other 2- 00:00: 00 Other Reaction( s): HYPER [facility] diphenhy dramine DA Active MO HYPER 2- 00:00: 00 [facility] No Known Allergie s DA Active U 2 00:00: 00 [facility] Penicill ins DA Active U UNKNOWN 2 00:00: 00 [facility] codeine DA Active U HYPER 2 00:00: 00 [facility] ANATOXIN DA Active MO SWELLING 07-29 00:00: 00 [facility] Tetanus Antitoxi n Allergy to substanc e Active Unknown 911 00:00: 00 [facility] PENICILL IN DRUG INGREDI Active Rash 01-14 00:00: 00 [facility] Penicill in Propensi ty to adverse reaction s Active Rash 01-14 00:00: 00 [facility] PENICILL INS Drug Class Active High Anaphylaxis 01-12 00:00: 00 [facility] CODEINE DRUG INGREDI Active Med Other-Cmnt 01-12 00:00: 00 [facility] TETANUS TOXOID DRUG Active Unknown-Cmnt 01-12 00:00: 00 [facility] Codeine Propensi ty to adverse reaction s to drug Active Other - See comments 01-12 00:00: 00 Makes patient extremely hyper [facility] Penicill ins Propensi ty to adverse reaction s to drug Active Swelling 01-12 00:00: 00 [facility] Tetanus Toxoid Propensi ty to adverse reaction s Active Unknown - See comments 01-12 00:00: 00 [facility] Codeine Allergy to substanc e Active Unknown 01-12 00:00: 00 Other Reaction( s): HYPER, Nausea/Vo miting Makes patient extremely hyper [facility] Penicill ins Allergy to substanc e Active Swelling 01-12 00:00: 00 Other Reaction( s): Nausea/Vo miting [facility] Social History Social Habit Start Date Stop Date Quantity Comments Source History SDOH Social Connections Get Together [facility] History SDOH Social Connections [facility] History SDOH Social Connections Membership [facility] History SDOH Social Connections Meetings [facility] History of tobacco use Cigarette Smoker [facility] Sexual orientation [facility] Tobacco use and exposure 2023-11-29 00:00:00 2023-11-29 00:00:00 Smokeless tobacco non-user [facility] History SDOH Alcohol Frequency 2022-08-03 00:00:00 2022-08-03 00:00:00 1 [facility] History SDOH Alcohol Std Drinks 2022-08-03 00:00:00 2022-08-03 00:00:00 0 [facility] History SDOH Alcohol Binge 2022-08-03 00:00:00 2022-08-03 00:00:00 1 [facility] History SDOH Social Connections Phone 2022-08-03 00:00:00 2022-08-03 00:00:00 5 [facility] History SDOH Social Connections Living 2022-08-03 00:00:00 2022-08-03 00:00:00 4 [facility] History SDOH Physical Activity DPW 2022-08-03 00:00:00 2022-08-03 00:00:00 5 [facility] History SDOH Physical Activity MPS 2022-08-03 00:00:00 2022-08-03 00:00:00 3 [facility] History SDOH Financial 2022-08-03 00:00:00 2022-08-03 00:00:00 5 [facility] History SDOH Food Worry 2022-08-03 00:00:00 2022-08-03 00:00:00 1 [facility] History SDOH Food Scarcity 2022-08-03 00:00:00 2022-08-03 00:00:00 1 [facility] History SDOH Transport Med 2022-08-03 00:00:00 2022-08-03 00:00:00 2 [facility] History SDOH Transport Non-Med 2022-08-03 00:00:00 2022-08-03 00:00:00 2 [facility] Alcohol intake 2022-08-02 00:00:00 2022-08-02 00:00:00 0 /d [facility] Exposure to SARS-CoV-2 (event) 2022-07-22 00:00:00 2022-08-01 11:15:00 Not sure [facility] History of Social function 2020-10-24 00:00:00 2020-10-24 00:00:00 [facility] Cigarettes smoked current (pack per day) - Reported 2017-03-04 00:00:00 2017-03-04 00:00:00 [facility] Cigarette pack-years 2017-03-04 00:00:00 2017-03-04 00:00:00 [facility] Sex Assigned At 1935 00:00:00 1935 00:00:00 [facility] Smoking Status Start Date Stop Date Source Tobacco smoking consumption unknown [facility] Ex-smoker 2023-11-29 00:00:00 2023-11-29 00:00:00 Auto I.D. Medications Ordered Medication Name Filled Medication Name Start Date Stop Date Current Medication? Ordering Clinician Indication Dosage Frequency Signature (SIG) Comments Components Source barium sulfate (E-Z-HD BARIUM) 98 % oral suspension 680 g 2022-06 16:15: 00 06-10 16:13 :00 No [id number] 680g 680 g, Oral, ONCE, 1 dose, On Wed06/10/23 at 1015, Routine [facility] predniSONE 20 mg tablet 08-07 00:00: 00 08-12 05:59 :00 No [id number] 40mg Take 2 tablets by mouth in the morning for 4 days. [facility] clopidogrel (PLAVIX) 75 mg tablet 08-06 12:53: 46 Yes 75mg Take 75 mg by mouth daily. [facility] aspirin 81 mg EC tablet 08-06 12:53: 46 Yes 81mg Take 81 mg by mouth daily. [facility] Vit A,C,E-Zinc- Copper (ICAPS AREDS) 14,320-226- 200 unit-mg-uni t Cap 08-06 12:53: 46 Yes 2{capsu le} Take 2 capsules by mouth daily. [facility] LORazepam 0.5 mg tablet 08-06 12:53: 46 Yes .5mg Take 0.5 mg by mouth 2 (two) times daily. [facility] atorvastati n 80 mg tablet 08-06 12:53: 46 Yes 80mg Take 80 mg by mouth at bedtime. [facility] Vit A,C,E-Zinc- Copper (ICAPS AREDS) 14,320-226- 200 unit-mg-uni t Cap 08-06 12:53: 46 Yes 2{capsu le} Take 2 capsules by mouth daily. [facility] levoFLOXaci n 500 mg tablet 08-06 00:00: 00 08-10 05:59 :00 No [id number] 500mg Take 1 tablet by mouth every 24 (twenty-fo ur) hours for 3 days. [facility] sennosides- docusate sodium (SENOKOT-S) 8.6-50 mg per tablet 1 tablet 08-05 15:00: 00 Yes 1{tbl} 1 tablet, Oral, DAILY, First dose on Wed08/05/22 at 0900, Until Discontinu ed, Routine [facility] polyethylen e glycol 3350 powder 17 g 08-05 15:00: 00 Yes 17g 17 g, Oral, DAILY, First dose on Wed08/05/22 at 0900, Until Discontinu ed, Routine [facility] levalbutero l (XOPENEX) nebulizer solution 0.63 mg 08-05 02:00: 00 Yes .63mg 0.63 mg, Inhalation , QID, First dose (after last modificati on) on Wed08/04/22 at 2000, Until Discontinu ed, Routine [facility] KCL (KLOR-CON M20) tablet 40 mEq 08-04 16:00: 00 08-04 17:26 :00 No 40meq 40 mEq, Oral, ONCE, 1 dose, On Wed08/04/22 at 1000, Routine [facility] traZODone (DESYREL) tablet 50 mg 08-04 06:30: 00 Yes 50mg 50 mg, Oral, QHS, First dose on Wed08/04/22 at 0030, Until Discontinu ed, Routine [facility] magnesium sulfate in water 4 gram/50 mL (8 %) IV Piggyback 4 g 08-04 01:15: 00 08-04 04:12 :00 No 4g 4 g, IV Piggyback, at 25 mL/hr Administer over 120 Minutes, ONCE, 1 dose, On Wed08/03/22 at 1915, Routine [facility] levoFLOXaci n in D5W (LEVAQUIN) [...] ion of therapy: 5 days [facility] predniSONE (DELTASONE) tablet 40 mg 08-03 15:00: 00 Yes 40mg 40 mg, Oral, DAILY, First dose on Wed08/03/22 at 0900, Until Discontinu ed, Routine [facility] atorvastati n (LIPITOR) tablet 80 mg 08-03 03:00: 00 Yes 80mg 80 mg, Oral, QHS, First dose on Wed08/02/22 at 2100, Until Discontinu ed, Routine [facility] levalbutero l (XOPENEX) nebulizer solution 0.63 mg 08-03 02:00: 00 08-04 21:14 :31 No .63mg 0.63 mg, Inhalation , TID, First dose on Wed08/02/22 at 2000, Until Discontinu ed, Routine [facility] ipratropium (ATROVENT) 0.02 % nebulizer solution 0.5 mg 08-02 22:00: 00 Yes .5mg 0.5 mg, Inhalation , QID, First dose on 08/02/22 at 1600, Until Discontinu ed, Routine [facility] albuterol (PROVENTIL) 2.5 mg /3 mL (0.083 %) nebulizer solution 2.5 mg 08-02 22:00: 00 08-03 00:25 :23 No 2.5mg 2.5 mg, Inhalation , QID, First dose on 08/02/22 at 1600, Until Discontinu ed, Routine [facility] metoprolol succinate XL (TOPROL XL) tablet 25 mg 08-02 15:00: 00 Yes 25mg 25 mg, Oral, DAILY, First dose on 08/02/22 at 0900, Until Discontinu ed, Routine [facility] loratadine (CLARITIN) tablet 10 mg 08-02 15:00: 00 Yes 10mg 10 mg, Oral, DAILY, First dose on 08/02/22 at 0900, Until Discontinu ed, Routine [facility] lisinopriL (PRINIVIL,Z ESTRIL) tablet 10 mg 08-02 15:00: 00 Yes 10mg 10 mg, Oral, DAILY, First dose on 08/02/22 at 0900, Until Discontinu ed, Routine [facility] fluticasone propionate 50 mcg/actuati on nasal spray 2 [place] 08-02 15:00: 00 Yes 2{spray } 2 [place], Nasal, DAILY, First dose on 08/02/22 at 0900, Until Discontinu ed, Routine [facility] clopidogreL (PLAVIX) 75 mg tablet 75 mg 08-02 15:00: 00 Yes 75mg 75 mg, Oral, DAILY, First dose on 08/02/22 at 0900, Until Discontinu ed, Routine [facility] aspirin EC tablet 81 mg 08-02 15:00: 00 Yes 81mg 81 mg, Oral, DAILY, First dose on 08/02/22 at 0900, Until Discontinu ed, Routine [facility] LORazepam (ATIVAN) tablet 0.5 mg 08-02 14:05: 55 Yes .5mg 0.5 mg, Oral, BIDPRN, Starting on 08/02/22 at 0805, Until Discontinu ed, Routine, Anxiety [facility] guaiFENesin 100 mg/5 mL solution 200 mg 08-02 06:42: 31 Yes 200mg 200 mg, Oral, Q4HPRN, Starting on Maxbass 08/02/22 at 0042, Until Discontinu ed, Routine, Cough [facility] heparin (porcine) injection 5,000 Units 08-02 04:00: 00 Yes 5000U 5,000 Units, Subcutaneo us, Q8H, First dose on 08/01/22 at 2200, Until Discontinu ed, Routine [facility] montelukast (SINGULAIR) tablet 10 mg 08-02 03:12: 53 Yes 10mg 10 mg, Oral, [id number], Starting on 08/01/22 at 211, Until Discontinu ed, Routine, symptoms [facility] benzonatate (TESSALON PERLES) capsule 100 mg 08-02 03:11: 43 Yes 100mg 100 mg, Oral, TIDPRN, Starting on 08/01/22 at 2111, Until Discontinu ed, Routine, Cough [facility] furosemide (LASIX) injection 20 mg 08-02 02:00: 00 08-03 14:37 :31 No 20mg 20 mg, Slow IV Push, Q12H, First dose on 08/01/22 at 2000, Until Discontinu ed, [facility] (TY[facility]OL) tablet 650 mg 08-01 23:27: 25 Yes 650mg 650 mg, Oral, Q6HPRN, Starting on 08/01/22 at 1727, Until Discontinu ed, Routine, Pain (scale 1-3) [facility] NaCl 0.9% (NS) bolus infusion 1,000 mL 08-01 22:45: 00 08-02 00:08 :00 No 1000mL at 999 mL/hr, 1,000 mL, IV Piggyback, ONCE, 1 dose, On 08/01/22 at 1645, STAT [facility] levoFLOXaci n in D5W (LEVAQUIN) 750 mg/150 mL Piggyback 750 mg 08-01 21:30: 00 08-02 00:08 :00 No 750mg 750 mg, IV Piggyback, ONCE, 1 dose, On 08/01/22 at 1530, Administer over 90 Minutes, 150 mL
Reas on for Anti-Infec tive: Empiric Therapy for Suspected Infection< br>Empiric Therapy Site: Respirator y
Durat ion of therapy: 72 hours [facility] LORazepam (ATIVAN) injection 1 mg 08-01 20:45: 00 08-01 20:41 :00 No 1mg 1 mg, Slow IV Push, ONCE, 1 dose, On 08/01/22 at 1445, STAT [facility] ipratropium -albuteroL (DUONEB) 0.5 mg-3 mg(2.5 mg base)/3 mL nebulizer solution 3 mL 08-01 20:04: 00 08-01 20:05 :00 No 3mL 3 mL, Inhalation , ONCE NOW, 1 dose, On 08/01/22 at 1415, Routine [facility] methylpredn isolone sod succ (SOLU-MEDRO L) injection 125 mg 08-01 18:00: 00 08-02 21:36 :45 No 125mg 125 mg, Intravenou s, Q6H, First dose on 08/01/22 at 1200, Until Discontinu ed, Routine [facility] ipratropium -albuteroL (DUONEB) 0.5 mg-3 mg(2.5 mg base)/3 mL nebulizer solution 3 mL 08-01 18:00: 00 08-02 19:10 :08 No 3mL 3 mL, Inhalation , QID, First dose on 08/01/22 at 1200, Until Discontinu ed, Routine [facility] chlorphenir amine 4 mg tablet 2-04 00:00: 00 Yes [id number] 4mg Take 1 tablet by mouth every 6 (six) hours as needed for Allergies or Runny nose. [facility] methylpredn isolone sod succ (SOLU-MEDRO L) injection 125 mg 07-07 18:15: 00 07-07 17:25 :00 No 125mg 125 mg, Slow IV Push, ONCE NOW, 1 dose, On Wed07/07/22 at 1215, [facility] albuterol (PROVENTIL) 2.5 mg /3 mL (0.083 %) nebulizer solution 2.5 mg 07-07 18:00: 00 07-07 16:33 :48 No 2.5mg 2.5 mg, Inhalation , QID, First dose on Wed07/07/22 at 1200, Until Discontinu ed, [facility] ipratropium (ATROVENT) 0.02 % nebulizer solution 0.5 mg 07-07 16:45: 00 07-07 16:12 :00 No .5mg 0.5 mg, Inhalation , ONCE, 1 dose, On Wed07/07/22 at 1045, [facility] loratadine- pseudoephed rine (CLARITIN-D 24 HOUR) 10-240 mg per 24 hr tablet 07-07 00:00: 00 Yes [id number] 1{tbl} Take 1 tablet by mouth in the morning. [facility] montelukast 10 mg tablet 07-07 00:00: 00 Yes [id number] 10mg Take 1 tablet by mouth every 24 (twenty-fo ur) hours as needed (symptoms) . [facility] albuterol 90 mcg/actuati on inhaler 07-07 00:00: 00 Yes [id number] 2{puff} Inhale 2 Puffs every 6 (six) hours as needed for Wheezing or Shortness of Breath. [facility] benzonatate 100 mg capsule 07-07 00:00: 00 Yes [id number] 100mg Take 1 capsule by mouth 3 (three) times daily as needed for Cough. [facility] methylPREDN ISolone 4 mg tablets 07-07 00:00: 00 08-06 00:00 :00 No [id number] Take by mouth SEE-INSTRU CTIONS. follow package directions [facility] doxycycline hyclate 100 mg capsule 07-07 00:00: 00 07-18 05:59 :00 No [id number] 100mg Take 1 capsule by mouth in the morning and 1 capsule in the evening. Do all this for 10 days. [facility] No known medications 07-09 12:45: 54 No No known medication s [facility] metoprolol succinate XL 25 mg 24 hr tablet 10-04 00:00: 00 Yes 25mg Take 25 mg by mouth daily. [facility] traMADoL 50 mg tablet 09-06 00:00: 00 Yes 50mg Take 50 mg by mouth 3 (three) times daily. [facility] Methylpredn isolone 4 mg tablet 09-06 00:00: 00 07-07 00:00 :00 No TAKE 6 TABLETS ON DAY 1 THEN TAKE 5 TABLETS ON DAY 2 THEN TAKE 4 TABLETS ON DAY 3 THEN TAKE 3 TABLETS ON DAY 4 THEN TAKE 2 TABLETS ON DAY 5 [facility] lisinopriL 10 mg tablet -03 00:00: 00 Yes TAKE 1 TABLET BY MOUTH ONCE DAILY IN THE EVENING DIRECTED [facility] fluticasone 50 mcg/actuati on nasal spray 03-18 00:00: 00 Yes [id number] 2{spray } Use 2 Sprays in each nostril daily. [facility] loratadine 10 mg tablet 03-18 00:00: 00 Yes [id number] 10mg Take 1 tablet by mouth daily. [facility] LORazepam 0.5 mg tablet 03-04 09:40: 58 Yes .5mg Take 0.5 mg by mouth 2 (two) times daily. [facility] atorvastati n 80 mg tablet 03-04 09:40: 58 Yes 80mg Take 80 mg by mouth at bedtime. [facility] clopidogrel (PLAVIX) 75 mg tablet 01-14 10:02: 40 Yes 75mg Take 75 mg by mouth daily. [facility] aspirin 81 mg EC tablet 01-14 10:02: 40 Yes 81mg Take 81 mg by mouth daily. [facility] Vit A,C,E-Zinc- Copper (ICAPS AREDS) 14,320-226- 200 unit-mg-uni t Cap 01-14 10:02: 40 Yes 2{capsu le} Take 2 capsules by mouth daily. [facility] Vital Signs Vital Name Observation Time Observation Value Comments S ource Respiratory rate 2022-08-06 13:56:00 18 /min [facility] Oxygen saturation in Arterial blood by Pulse oximetry 2022-08-06 13:56:00 99 /min [facility] Systolic blood pressure 2022-08-06 13:33:00 119 mm[Hg] [facility] Diastolic blood pressure 2022-08-06 13:33:00 90 mm[Hg] [facility] Heart rate 2022-08-06 13:33:00 97 /min [facility] Body temperature 2022-08-06 13:33:00 36.22 Stacie [facility] Body weight 2022-08-06 09:40:00 67.994 kg [facility] BMI 2022-08-06 09:40:00 29.28 kg/m2 [facility] Body height 2022-08-02 04:00:00 152.4 cm [facility] Systolic blood pressure 2022-07-07 17:46:00 105 mm[Hg] [facility] Diastolic blood pressure 2022-07-07 17:46:00 61 mm[Hg] [facility] Heart rate 2022-07-07 17:46:00 98 /min [facility] Respiratory rate 2022-07-07 17:46:00 20 /min [facility] Oxygen saturation in Arterial blood by Pulse oximetry 2022-07-07 17:46:00 98 /min [facility] Body temperature 2022-07-07 15:29:00 37.11 Stacie [facility] Body height 2022-07-07 15:29:00 149.9 cm [facility] Body weight 2022-07-07 15:29:00 68.04 kg [facility] BMI 2022-07-07 15:29:00 30.30 kg/m2 [facility] Procedures Procedure Date / Time Performed Performing Clinician Source [id number] 2023-08-24 00:00:00 [email or web address].01 [facility] [id number] 2023-08-24 00:00:00 GREBR.01 [facility] [id number] 2023-08-24 00:00:00 GREBR.01 [facility] [id number] 2023-08-17 00:00:00 POREY [facility] [id number] 2023-08-17 00:00:00 POREY [facility] [id number] 2023-08-17 00:00:00 POREY [facility] [id number] 2023-08-17 00:00:00 POREY [facility] [id number] 2023-08-17 00:00:00 POREY [facility] [id number] 2023-08-17 00:00:00 POREY [facility] [id number] 2023-08-17 00:00:00 POREY [facility] [id number] 2023-08-17 00:00:00 POREY [facility] [id number] 2023-08-17 00:00:00 POREY [facility] [id number] 2023-08-17 00:00:00 POREY [facility] [id number] 2023-08-17 00:00:00 POREY [facility] [id number] 2023-08-17 00:00:00 POREY [facility] [id number] 2023-08-17 00:00:00 [facility] [facility] [place] BARIUM SWALLOW ESOPHAGUS 2023-06-10 15:42:00 Anne Candelaria [facility] ASSIGNMENT OF BENEFITS 2023-06-10 15:06:13 Docto r Unassigned, [place] [facility] AUTHORIZATION FOR RELEASE OF PHI 2022-08-20 06:01:00 Doctor Unassigned, [place] [facility] PHOSPHORUS 2022-08-06 10:05:[address] [facility] MAGNESIUM 2022-08-06 10:05:00 [facility] BASIC METABOLIC PANEL (NA, K, CL, CO2, GLUCOSE, BUN, CREATININE, CA) 2022-08-06 10:05:00 Adri Castillo [facility] BASIC METABOLIC PANEL (NA, K, CL, CO2, GLUCOSE, BUN, CREATININE, CA) 2022-08-05 11:24:00 Vasile Mcdonald [facility] CBC WITH DIFF 2022-08-05 11:24:00 [facility] 2022-08-04 09:23:00 [facility] PAN[facility] (NA, K, CL, CO2, GLUCOSE, BUN, CREATININE, CA) 2022-08-04 09:23:00 Vasile Mcdonald [facility] CBC WITH DIFF 2022-08-04 09:23:00 Vasile Mcdonald Un [facility] N-TERMINAL PRO-BNP 2022-08-04 09:23:00 Shaun Mcdonald [facility] COVID-19 (ID NOW RAPID TESTING) 2022-08-03 21:12:00 Vasile Mcdonald [facility] LAB ONLY COVID INTERPRETATION 2022-08-03 21:12:00 Vasile Mcdonald [facility] POCT GLUCOSE (AUTOMATED) 2022-08-03 17:59:00 Taty Juarez [facility] POCT GLUCOSE (AUTOMATED) 2022-08-03 14:04:00 Taty Juarez [facility] MAGNESIUM 2022-08-03 09:47:00 Bharati Juarez [facility] BASIC METABOLIC PANEL (NA, K, CL, CO2, GLUCOSE, BUN, CREATININE, CA) 2022-08-03 09:47:00 Bharati Juarez [facility] CBC WITH DIFF 2022-08-03 09:47:00 Bharati Juarez [facility] N-TERMINAL PRO-BNP 2022-08-03 09:47:00 Eddie Ahuja [facility] TRANSTHORACIC ECHO (TTE) COMPLETE 2022-08-02 15:09:00 Bharati Juarez [facility] CT THORAX WO CONTRAST 2022-08-01 21:06:39 Ashish Wiley [facility] XR CHEST 1 VW 2022-08-01 18:32:02 [facility] HB ECG ROUTINE & RHYTHM STRIP 2022-08-01 18:20:26 Singer [facility] TROPONIN I 2022-08-01 17:55:00 Singer [facility] COMP. METABOLIC PANEL ([id number]) 2022-08-01 17:55:00 Singer [facility] CBC WITH DIFF 2022-08-01 17:55:00 [facility] N-TERMINAL PRO-BNP 2022-08-01 17:55:00 Singer [facility] CONSENT/REFUSAL FOR DIAGNOSIS AND TREATMENT 2022-08-01 17:07:49 Doctor Unassigned, [place] [facility] XR CHEST 1 VW 2022-07-07 16:51:29 Jesu Radford [facility] TROPONIN I 2022-07-07 16:01:00 [facility] COMP. METABOLIC PANEL ([id number]) 2022-07-07 16:01:00 Prabhakar [facility] CBC WITH DIFF 2022-07-07 16:01:00 Jesu Radford [facility] PROTHROMBIN TIME / INR 2022-07-07 16:01:00 Ozzie Radford [facility] ACTIVATED PARTIAL THRMPLAS OSIEL 2022-07-07 16:01:00 Jesu Radford [facility] RAPID INFLUENZA A/B 2022-07-07 16:01:00 Ni Radford [facility] N-TERMINAL PRO-BNP 2022-07-07 16:01:00 Jesu Radford [facility] COVID-19 (ID NOW RAPID TESTING) 2022-07-07 16:01:00 Jesu Radford [facility] NOTICE OF PRIVACY PRACTICES 2022-07-07 15:22:56 Doctor Unassigned, [place] [facility] CONSENT/REFUSAL FOR DIAGNOSIS AND TREATMENT 2022-07-07 15:19:49 Doctor Unassigned, [place] [facility] Encounters Start Date/Time End Date/Time Encounter Type Admission Type Attending Clinicians Care Facility Care Department Encounter ID Source 2022-02-19 11:44:08 Outpatient ANNE COTTON [facility] [id number] [facility] 2021-06-30 12:23:44 Outpatient [facility] [id number] [facility] 2021-01-28 14:02:50 Outpatient TA PEREZ [facility] [id number] [facility] 2021-01-28 14:01:32 Outpatient [facility] [id number] [facility] 2023-12-24 11:29:00 2023-12-24 11:29:00 Outpatient King Heath [facility] RAD [id number] [facility] 2023-11-29 10:30:00 2023-11-30 07:43:02 Office Visit TA PEREZ [facility] [id number] 350.1.13.58 9.2.7.2.686 [id number] [facility] 2023-11-29 09:30:00 2023-11-30 07:41:37 Outpatient [facility] [id number] [facility] 2023-11-29 09:00:00 2023-11-30 07:41:04 Outpatient [facility] [id number] [facility] 2023-11-02 07:45:00 2023-11-02 07:45:00 Outpatient TA PEREZ [facility] [id number] [facility] 2023-11-01 11:15:00 2023-11-01 11:15:00 Outpatient [facility] [id number] [facility] 2023-11-01 09:00:00 2023-11-01 09:00:00 Outpatient [facility] [id number] [facility] 2023-10-08 00:00:00 2023-10-08 00:00:00 Outpatient YOUSUF_A1 [facility] [id number] Dr. Marianne Mckay 2023-08-27 15:46:00 2023-09-10 11:37:00 Inpatient 3 ABIODUN LOW ENCPL CRD [id number] [facility] 2023-08-30 09:30:00 2023-08-30 09:30:00 Outpatient [facility] [id number] [facility] 2023-08-30 09:00:00 2023-08-30 09:00:00 Outpatient [facility] [id number] [facility] 2023-07-31 05:26:00 2023-07-31 05:26:00 Outpatient Gianna Herbert [facility] [id number] [facility] 2023-06-10 09:06:24 2023-06-10 23:59:00 Outpatient ANNE COTTON [facility] [id number] [facility] 2023-06-10 09:06:24 2023-06-10 23:59:00 Hospital Encounter Anne Nayak [facility] 1.840.114 350.1.13.10 4.2.7.2.686 [id number] [facility] 2023-06-10 00:00:00 2023-06-10 00:00:00 Orders Only Doctor Unassigned, [place] [facility] 1.2.840.114 350.1.13.10 4.2.7.2.686 [id number] [facility] 2023-06-09 00:00:00 2023-06-09 00:00:00 Outpatient R ANNE NAYAK [facility] [id number] [facility] 2022-08-20 00:00:00 2022-08-20 00:00:00 Orders Only Doctor Unassigned, [place] [facility] 1.2.840.114 350.1.13.10 4.2.7.2.686 [id number] [facility] 2022-08-07 00:00:00 2022-08-07 00:00:00 Transition of Care Mckeon Lily B SPENCEREmily SUZETTE ARMSTRONG 1.2840.114 350.1.13.10 4.2.7.2.686 [id number] [facility] 2022-08-01 11:24:00 2022-08-06 12:12:00 Inpatient X HE SYLVESTER [facility] [id number] [facility] 2022-08-01 11:24:00 2022-08-06 12:12:00 Hospital Encounter John Wiley David Abdullah, Yaman [facility] 1.2840.114 350.1.13.10 4.2.7.2.686 [id number] [facility] 2022-07-07 09:30:00 2022-07-07 11:58:00 Emergency X JESU RADFORD [facility] [id number] [facility] 2022-07-07 09:30:00 2022-07-07 11:58:00 Emergency Jesu Radford [facility] 1.2840.114 350.1.13.10 4.2.7.2.686 [id number] [facility] 2022-02-27 08:15:00 2022-02-27 08:15:00 Outpatient R ANNE NAYAK [facility] [id number] [facility] 2022-01-26 14:40:00 2022-01-26 14:40:00 Outpatient R JADAMUNIRA [facility] [id number] [facility] 2021-07-09 07:45:00 2021-07-09 08:33:53 Telephonic Encounter Ta Perez [facility] 1.2.840.114 350.1.13.58 9.2.7.2.686 [id number] [facility] 2020-10-24 09:30:00 2020-10-24 09:30:00 Outpatient MARILYN WAKEFIELD [facility] [id number] [facility] 2020-10-16 13:45:00 2020-10-16 13:45:00 Outpatient MARILYN WAKEFIELD [facility] [id number] [facility] 2019-03-10 00:00:00 2019-03-10 00:00:00 Orders Only Doctor Unassigned, [place] [facility] 1.2.840.114 350.1.13.10 4.2.7.2.686 [id number] 2019-03-08 11:41:44 2019-03-08 23:59:00 Hospital Encounter Radiology [facility] 1.2.840.114 350.1.13.10 4.2.7.2.686 [id number] 2019-03-08 11:35:43 2019-03-08 11:52:55 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 Visit 1, Adc Lab [facility] 1.2.840.114 350.1.13.10 4.2.7.2.686 [id number] 2019-03-04 00:00:00 2019-03-04 00:00:00 Orders Only Doctor Unassigned, [place] [facility] 1.2.840.114 350.1.13.10 4.2.7.2.686 [id number] 2010-09-03 00:00:00 2010-09-03 11:51:48 Outpatient [facility] [id number] [facility] Results Test Description Test Time Test Comments Results Result Co mments Source BLOOD GAS [id number] 08:46:00* Test Item Value Reference Range Interpretation Comme nts ARTERIAL BLOOD GAS PH (test code = PHA) 7.33 7.35-7.45 L ARTERIAL BLOOD GAS PCO2 (test code = PCO2A) 41.0 mmHg 35.0-45.0 N ARTERIAL BLOOD GAS PO2 (test code = PO2A) 96.6 mmHg 80.0-95.0 H BICARBONATE TOTAL HCO3 (test code = HCO3) 21.0 mmol/L 22.0-24.0 L BASE EXCESS (test code = ZAIN) -4.6 mmol/L See_Comment L [Automated message] The system which generated this result transmitted reference range: (+/-)2.0. The reference range was not used to interpret this result as normal/abnormal. ABG O2 SATURATION (test code = SATA) 96.8 % 95.0-100.0 N ARTERIAL FIO2 (test code = FIO2A) 36.0 % ABG VENT MODE (test code = MODEA) NASAL CANNULA ALLENS TEST (test code = ALLENS) NOT APPLICABLE SODIUM (POC) (test code = NA/ABG) 140 mmol/L 135-147 N POTASSIUM (POC) (test code = K/ABG) 4.36 mmol/L 3.6-5.2 N CHLORIDE (ARTERIAL) (test code = CL/ABG) 104 mmol/L 98-108 N GLUCOSE (test code = GLU/ABG) 145 mg/dL 70-104 H IONIZED CALCIUM (test code = CAIABG) 1.33 mmol/L 1.12-1.32 H POC LACTIC ACID (test code = POCLAC) 1.47 mmol/L 0.5-2.2 N TOTAL HGB (test code = THB) 11.8 g/dL 12.0-16.0 L OXYHEMOGLOBIN (test code = OOHGBT) 96.5 % 92.0-98.0 N CARBOXYHEMOGLOBIN (test code = HOHGBT) 0.2 % 0-5.0 N METHEMOGLOBIN (test code = METHGB) <0.8 % 0-1.5 N HHb (test code = HHB) 3.2 % TCO2 ARTERIAL (test code = TCO2A) 22.3 MMOL/L 24-30 L - XR CHEST 2 [id number] 12:29:00 [facility] 1935 Sex: FPatient Name: ROCK GOMEZ Unit No: [id number] EXAMS: CPT CODE: [id number] XR CHEST 2 V 03086 Location Code: W1 EXAMINATION: - XR CHEST 2 V CLINICAL INDICATION: Female, 88 years year oldwith SHORTNESS OF BREATH COMPARISON: Chest x-ray August 27, 2023 FINDINGS: 2 view(s) of the chest submitted. Support Devices: Stable support devices and median sternotomy wires. Heart: Cardiac silhouette is stable in size. Mediastinum: Mediastinal contours are unchanged. Lungs: Mild central pulmonary vascular congestion. Stable elevation of the left lung base with probable left lung base atelectasis. Pleura: Trace pleural effusions. No pneumothorax is present. Bones: Visualized skeleton is stable in appearance. IMPRESSION: Mild central pulmonary vascular congestion. Stable elevation of the left lung base with suspected left lung base atelectasis. No evidence of focal consolidation. Possible trace pleural effusions. at 1229 Reportedand signed by: Joey Rogel MD CC: King Montiel MD; Marianne Mckay MD Technologist: Javi Chandra Fluoro Time: DAP (Gy m2): Air Kerma (mGy): Trscr Dt/Tm: 12/24/2023 (1229) by:[email or web address] Printed Date/Time: 12/24/2023 (6654) Name: ROCK GOMEZ [facility] Phys: King Montilla MD [address] : 1935 Age: 88 Sex: [place] [address] Loc: PJohnRAD Exam Date: 12/24/2023 Status: REG CLI PH: FAX: PAGE 1 Signed ReportBASIC MET [id number] 04:03:00* Test Item Value Reference Range Interpretation Comme nts GLUCOSE (test code = 27312243) 94 mg/dL 65-99 N Fasting referenc e interval UREA NITROGEN (BUN) (test code = 56108523) 18 mg/dL 7-25 N CREATININE (test code = 03009580) 0.68 mg/dL 0.60-0.95 N EGFR (test code = 28219384) 84 mL/min/1.73m2 >=60 N BUN/CREATININE RATIO (test code = 57666863) SEE NOTE: (calc) 6-22 N Not Reported: BUN and Creatinine are within reference range. SODIUM (test code = 60735069) 138 mmol/L 135-146 N POTASSIUM (test code = 09910457) 4.4 mmol/L 3.5-5.3 N CHLORIDE (test code = 62514057) 104 mmol/L 98-110 N CARBON DIOXIDE (test code = 23682292) 21 mmol/L 20-32 N CALCIUM (test code = 08905272) 8.9 mg/dL 8.6-10.4 N [facility] [id number] 04:03:00* Test Item Value Reference Range Interpretation Comme nts MAGNESIUM (test code = 72308794) 1.6 mg/dL 1.5-2.5 N [facility]ITALCBC (DIFF/PLT)2023-09-07 04:03:00* Test Item Value Reference Range Interpretation Comme nts WHITE BLOOD CELL COUNT (test code = 75987929) 5.0 Thousand/uL 3.8-10.8 N RED BLOOD CELL COUNT (test code = 40374120) 3.38 Million/uL 3.80-5.10 L HEMOGLOBIN (test code = 11245979) 9.7 g/dL 11.7-15.5 L HEMATOCRIT (test code = 16422095) 30.1 % 35.0-45.0 L MCV (test code = 40170700) 89.1 fL 80.0-100.0 N MCH (test code = 07943043) 28.7 pg 27.0-33.0 N MCHC (test code = 75684050) 32.2 g/dL 32.0-36.0 N RDW (test code = 55389094) 14.4 % 11.0-15.0 N PLATELET COUNT (test code = 52999854) 300 Thousand/uL 140-400 N MPV (test code = 64035644) 9.8 fL 7.5-12.5 N ABSOLUTE NEUTROPHILS (test code = 69674935) 2130 cells/uL 1034-5962 N ABSOLUTE LYMPHOCYTES (test code = 20973015) 2050 cells/uL 850-3900 N ABSOLUTE MONOCYTES (test cod e = 00350520) 500 cells/uL 200-950 N ABSOLUTE EOSINOPHILS (test code = 13800504) 280 cells/uL 15-500 N ABSOLUTE BASOPHILS (test cod e = 93438956) 40 cells/uL 0-200 N NEUTROPHILS (test code = 21735378) 42.6 % N LYMPHOCYTES (test code = 23805039) 41.0 % N MONOCYTES (test code = 60499093) 10.0 % N EOSINOPHILS (test code = 70635232) 5.6 % N BASOPHILS (test code = 54623150) 0.8 % N [facility]ITALBASIC MET [id number] 14:52:00* Test Item Value Reference Range Interpretation Comme nts GLUCOSE (test code = 69885610) 82 mg/dL 65-99 N Fasting referenc e interval UREA NITROGEN (BUN) (test code = 81168695) 22 mg/dL 7-25 N CREATININE (test code = 11134775) 0.88 mg/dL 0.60-0.95 N EGFR (test code = 05250299) 64 mL/min/1.73m2 >=60 N BUN/CREATININE RATIO (test code = 38284569) SEE NOTE: (calc) 6-22 N Not Reported: BUN and Creatinine are within reference range. SODIUM (test code = 14073242) 135 mmol/L 135-146 N POTASSIUM (test code = 79033634) 4.5 mmol/L 3.5-5.3 N CHLORIDE (test code = 67847325) 97 mmol/L 98-110 L CARBON DIOXIDE (test code = 60730925) 23 mmol/L 20-32 N CALCIUM (test code = 61655638) 9.6 mg/dL 8.6-10.4 N [facility] [id number] 14:52:00* Test Item Value Reference Range Interpretation Comme nts MAGNESIUM (test code = 33460337) 1.3 mg/dL 1.5-2.5 L [facility] HOSPITALCBC (DIFF/PLT)2023-08-30 14:52:00* Test Item Value Reference Range Interpretation Comme nts WHITE BLOOD CELL COUNT (test code = 14151053) 10.4 Thousand/uL 3.8-10.8 N RED BLOOD CELL COUNT (test code = 28988540) 3.65 Million/uL 3.80-5.10 L HEMOGLOBIN (test code = 58750658) 10.3 g/dL 11.7-15.5 L HEMATOCRIT (test code = 68465710) 32.0 % 35.0-45.0 L MCV (test code = 38591573) 87.7 fL 80.0-100.0 N MCH (test code = 10359867) 28.2 pg 27.0-33.0 N MCHC (test code = 29965091) 32.2 g/dL 32.0-36.0 N RDW (test code = 72589551) 14.3 % 11.0-15.0 N PLATELET COUNT (test code = 53911193) 462 Thousand/uL 140-400 H MPV (test code = 82711346) 9.4 fL 7.5-12.5 N ABSOLUTE NEUTROPHILS (test code = 48199906) 6656 cells/uL 4061-7010 N ABSOLUTE LYMPHOCYTES (test code = 06153762) 2579 cells/uL 850-3900 N ABSOLUTE MONOCYTES (test code = 28139986) 842 cells/uL 200-950 N ABSOLUTE EOSINOPHILS (test code = 95279483) 250 cells/uL 15-500 N ABSOLUTE BASOPHILS (test code = 51226536) 73 cells/uL 0-200 N NEUTROPHILS (test code = 95027664) 64 % N LYMPHOCYTES (test code = 28462926) 24.8 % N MONOCYTES (test code = 29679602) 8.1 % N EOSINOPHILS (test code = 42925367) 2.4 % N BASOPHILS (test code = 60373647) 0.7 % N [facility] HOSPITALCOMP META [id number] 13:03:00* Test Item Value Reference Range Interpretation Comme nts GLUCOSE (test code = 04901406) 93 mg/dL 65-99 N Fasting referenc e interval UREA NITROGEN (BUN) (test code = 00749562) 15 mg/dL 7-25 N CREATININE (test code = 72420790) 0.61 mg/dL 0.60-0.95 N EGFR (test code = 37155379) 86 mL/min/1.73m2 >=60 N BUN/CREATININE RATIO (test code = 47892559) SEE NOTE: (calc) 6-22 N Not Reported: BUN and Creatinine are within reference range. SODIUM (test code = 25911368) 136 mmol/L 135-146 N POTASSIUM (test code = 23029484) 4.4 mmol/L 3.5-5.3 N CHLORIDE (test code = 76020377) 105 mmol/L 98-110 N CARBON DIOXIDE (test code = 17122337) 21 mmol/L 20-32 N CALCIUM (test code = 32796375) 8.7 mg/dL 8.6-10.4 N PROTEIN, TOTAL (test code = 53800730) 5.8 g/dL 6.1-8.1 L ALBUMIN (test code = 96042841) 3.4 g/dL 3.6-5.1 L GLOBULIN (test code = 54550125) 2.4 g/dL (calc) 1.9-3.7 N ALBUMIN/GLOBULIN RATIO (test code = 88432108) 1.4 (calc) 1.0-2.5 N BILIRUBIN, TOTAL (test code = 16908914) 0.6 mg/dL 0.2-1.2 N ALKALINE PHOSPHATASE (test code = 95805744) 106 U/L 37-153 N AST (test code = 73385525) 17 U/L 10-35 N ALT (test code = 94201559) 8 U/L 6-29 N [facility] HOSPITALPRO TIME WITH [id number] 13:03:00* Test Item Value Reference Range Interpretation Comme nts INR (test code = 63930868) 1.1 N Reference Range 0.9-1.1Moderate-intensity Warfarin Therapy 2.0-3.0Higher-intensity Warfarin Therapy 3.0-4.0 PT (test code = 01392920) 11.2 sec 9.0-11.5 N For additional information, please refer [email or web address]/HCG703 (This link is being provided for informational/educational purposes only.) [facility]ITALCBC (DIFF/PLT)2023-08-28 13:03:00* Test Item Value Reference Range Interpretation Comme nts WHITE BLOOD CELL COUNT (test code = 65167029) 7.9 Thousand/uL 3.8-10.8 N RED BLOOD CELL COUNT (test code = 40456673) 3.18 Million/uL 3.80-5.10 L HEMOGLOBIN (test code = 46549181) 9.2 g/dL 11.7-15.5 L HEMATOCRIT (test code = 04004523) 28.1 % 35.0-45.0 L MCV (test code = 94311992) 88.4 fL 80.0-100.0 N MCH (test code = 23141486) 28.9 pg 27.0-33.0 N MCHC (test code = 51161013) 32.7 g/dL 32.0-36.0 N RDW (test code = 29179046) 14.1 % 11.0-15.0 N PLATELET COUNT (test code = 43458927) 378 Thousand/uL 140-400 N MPV (test code = 50470828) 9.4 fL 7.5-12.5 N ABSOLUTE NEUTROPHILS (test code = 02167500) 4938 cells/uL 7728-1423 N ABSOLUTE LYMPHOCYTES (test code = 19076295) 1975 cells/uL 850-3900 N ABSOLUTE MONOCYTES (test cod e = 10318570) 616 cells/uL 200-950 N ABSOLUTE EOSINOPHILS (test code = 75673739) 300 cells/uL 15-500 N ABSOLUTE BASOPHILS (test cod e = 96923881) 71 cells/uL 0-200 N NEUTROPHILS (test code = 94803682) 62.5 % N LYMPHOCYTES (test code = 58297882) 25.0 % N MONOCYTES (test code = 19931681) 7.8 % N EOSINOPHILS (test code = 48866955) 3.8 % N BASOPHILS (test code = 39990819) 0.9 % N [facility]- XR CHEST 1 [id number] 09:26:00 [facility] 1935 Sex: FPatient Name: ROCK GOMEZ Unit No: [id number] EXAMS: CPT CODE: [id number] XR CHEST 1 V 72973 Chest Radiograph History: Shortness of breath Comparison: August 25, 2023 Location: [facility] A single frontal view of the chest is submitted. The heart appears unchanged in size. Pulmonary vasculature is unremarkable. There is a patchy opacity in the left lung base. There is a small left pleural effusion. The bones appear unchanged. IMPRESSION: Patchy opacity left lung base. This could be due to atelectasis or pneumonia. There is a small left pleural effusion. Compared to the prior exam, there has been little change. at 0926 Repo rted and signed by: JIGAR DAWN M.D. CC: Funmilayo GARCIA; Marianne Mckay MD Technologist: Rehan Ruiz Fluoro Time: DAP (Gy m2): Air Kerma (mGy): Trscr Dt/Tm: 08/27/2023 (925) by:[email or web address] Printed Date/Time: 08/27/2023 (928) Name: ROCK GOMEZ [facility] Phys: Funmilayo Rivera [id number] : 1935 Age: 88 Sex: [place] [address] Loc: P.[id number] A Exam Date: 08/27/2023 Status: ADM IN PH: FAX: PAGE 1 Signed ReportBASIC METABOLIC [id number] 06:01:00* Test Item Value Reference Range Interpretation Comme nts SODIUM (test code = NA) 137 mmol/L 136-145 N POTASSIUM (test code = K) 4.3 mmol/L 3.5-5.1 N CHLORIDE (test code = CL) 106 mmol/l 98-107 N CARBON DIOXIDE (test code = CO2) 23 mmol/L 20-31 N GLUCOSE (test code = GLU) 104 mg/dL 74-106 N BLOOD UREA NITROGEN (test code = BUN) 11 mg/dL 9-23 N GLOMERULAR FILTRATION RATE (test code = GFR) >=60 max estimate mL/min >60 The Glomerular Filtration Rate is a calculated parameterbased on serum Creatinine, patient age and sex. GFR valuesless than 60 mL/min/1.73 square meters are indicative ofChronic Kidney Disease. Values less than 15 mL/min/1.73square meters indicate Kidney failure. The calculation forGFR is based on the CKD-EPI (2020) calculation. This formulais race indifferent and is the recommended formula for GFRby the National Kidney Foundation for Adults.The GFR will not calculate if the sex is unknown or if thepatient's age is <18 years. CREATININE (test code = CREAT) 0.60 mg/dL 0.55-1.02 N CALCIUM (test code = CA) 9.9 mg/dL 8.7-10.4 ADD ON TEST? [id number] 06:01:00* Test Item Value Reference Range Interpretation Comme nts PHOSPHOROUS (test code = PHOS) 3.9 mg/dL 2.4-5.1 N ADD ON TEST? [id number] 06:01:00* Test Item Value Reference Range Interpretation Comme nts MAGNESIUM (test code = MAG) 1.9 mg/dL 1.6-2.6 N ADD ON TEST? YesCBC W/AUTO [id number] 05:44:00* Test Item Value Reference Range Interpretation Comme nts WHITE BLOOD CELL (test code = WBC) 7.0 x10 3/uL 4.8-10.8 N RED BLOOD CELL (test code = RBC) 3.56 x10 6/uL 4.20-5.40 L HEMOGLOBIN (test code = HGB) 10.1 g/dL 12.0-16.0 L HEMATOCRIT (test code = HCT) 32.8 % 37.0-47.0 L MEAN CELL VOLUME (test code = MCV) 92.1 fL 81.0-99.0 N MEAN CELL HGB (test code = MCH) 28.4 pg 27-31 N MEAN CELL HGB CONCENTRATION (test code = MCHC) 30.8 G/DL 33-36.5 L RED CELL DISTRIBUTION WIDTH (test code = RDW) 15.3 % 12.9-16.9 N PLATELET COUNT (test code = PLT) 377 x10 3/uL 150-440 N MEAN PLATELET VOLUME (test c ode = MPV) 9.3 fL 8.9-12.4 N NEUTROPHIL % (test code = NT%) 60.0 % 42.2-75.2 N LYMPHOCYTE % (test code = LY%) 24.7 % 20.5-51.1 N MONOCYTE % (test code = MO%) 7.9 % 1.7-9.3 N EOSINOPHIL % (test code = EO%) 5.5 % 0.0-7.0 N BASOPHIL % (test code = BA%) 0.9 % 0-2.5 N NEUTROPHIL # (test code = NT#) 4.19 x10 3/uL 1.80-7.70 N LYMPHOCYTE # (test code = LY#) 1.72 x10 3/uL 1.00-4.80 N MONOCYTE # (test code = MO#) 0.55 x10 3/uL 0.00-0.80 N EOSINOPHIL # (test code = EO#) 0.38 x10 3/uL 0.00-0.45 N BASOPHIL # (test code = BA#) 0.06 x10 3/uL 0.0-0.20 N [id number] 14:09:00 [facility] : 1935 Sex: FPatient Name: ROCK GOMEZ Unit No: [id number] EXAMS: CPT CODE: [id number] US CHST [id number] EXAM: - US CHST W/MEDIASTINUM LOCATION: A1 HISTORY: Quantify left pleural effusion COMPARISON: None TECHNIQUE: Grayscale and color Doppler images of the lower chest were obtained to evaluate for pleural effusions. FINDINGS/ IMPRESSION: Trace bilateral pleural effusions identified. Electron ically Signed by HOLLIE NGUYEN M.D. on 08/25/2023 at 1409 Reported and signed by: HOLLIE NGUYEN M.D. CC: Estrada GARCIA; Marianne Mckay MD Technologist: Sri Vargas Probe: Trscr Dt/Tm: 08/25/2023 (1409) by:[email or web address] Printed Date/Time: 08/25/2023 (7703) Name: ROCK GOMEZ [facility] Phys: Estrada Woods [address] : 1935 Age: 88 Sex: [place] [address] Loc: P.0307 1 Exam Date: 08/25/2023 Status: ADM IN PH: FAX: PAGE 1 Signed Report- XR CHEST 1 [id number] 08:32:00[facility] : 1935 Sex: FPatient Name: ROCK GOMEZ Unit No: [id number] EXAMS: CPT CODE: [id number] XR CHEST 1 V [id number] EXAM: XR Chest 1 View INDICATION: NEW ONSET TACHYCARDIA LOCATION: A1 COMPARISON: Chest radiograph dated 08/24/2023 TECHNIQUE: Frontal view of the chest was obtained. FINDINGS: Left 2-lead pacemaker is inunchanged position. Left pleural effusion and underlying left basilar airspace opacities are similar to prior. No pneumothorax is seen. The cardiomediastinal silhouette is unchanged. No acute osseousabnormality is identified. IMPRESSION: No significant change from prior. at 0832 Reported and signed by: HOLLIE WHITE M.D. CC: Bharati Hodges MD; Marianne Mckay MD Technologist: CHINMAY LITTLE (R) Fluoro Time: DAP (Gy m2): Air Kerma (mGy): Trscr Dt/Tm: 08/25/2023 (0832) by:[email or web address] Printed Date/Time: 08/25/2023 (0835) Name: ROCK GOMEZ [facility] Phys: Bharati Mccurdy MD [address]OB: 1935 Age: 88 Sex: [place] [address] Loc: P.0307 1 Exam Date: 08/25/2023 Status: ADM IN PH: FAX: PAGE 1 Signed ReportBASIC METABOLIC PANEL 2023-08-25 05:49:00* Test Item Value Reference Range Interpretation Comme nts SODIUM (test code = NA) 139 mmol/L 136-145 N POTASSIUM (test code = K) 3.7 mmol/L 3.5-5.1 N CHLORIDE (test code = CL) 107 mmol/l 98-107 N CARBON DIOXIDE (test code = CO2) 24 mmol/L 20-31 N GLUCOSE (test code = GLU) 114 mg/dL 74-106 H BLOOD UREA NITROGEN (test code = BUN) 12 mg/dL 9-23 N GLOMERULAR FILTRATION RATE (test code = GFR) >=60 max estimate mL/min >60 The Glomerular Filtration Rate is a calculated parameterbased on serum Creatinine, patient age and sex. GFR valuesless than 60 mL/min/1.73 square meters are indicative ofChronic Kidney Disease. Values less than 15 mL/min/1.73square meters indicate Kidney failure. The calculation forGFR is based on the CKD-EPI (2020) calculation. This formulais race indifferent and is the recommended formula for GFRby the National Kidney Foundation for Adults.The GFR will not calculate if the sex is unknown or if thepatient's age is <18 years. CREATININE (test code = CREAT) 0.60 mg/dL 0.55-1.02 N CALCIUM (test code = CA) 8.5 mg/dL 8.7-10.4 L ADD ON TEST? [id number] 05:49:00* Test Item Value Reference Range Interpretation Comme nts PHOSPHOROUS (test code = PHOS) 3.6 mg/dL 2.4-5.1 N ADD ON TEST? [id number] 05:49:00* Test Item Value Reference Range Interpretation Comme nts MAGNESIUM (test code = MAG) 1.9 mg/dL 1.6-2.6 N ADD ON TEST? YesCBC W/AUTO [id number] 05:24:00* Test Item Value Reference Range Interpretation Comme nts WHITE BLOOD CELL (test code = WBC) 8.7 x10 3/uL 4.8-10.8 N RED BLOOD CELL (test code = RBC) 3.48 x10 6/uL 4.20-5.40 L HEMOGLOBIN (test code = HGB) 9.9 g/dL 12.0-16.0 L HEMATOCRIT (test code = HCT) 32.0 % 37.0-47.0 L MEAN CELL VOLUME (test code = MCV) 92.0 fL 81.0-99.0 N MEAN CELL HGB (test code = MCH) 28.4 pg 27-31 N MEAN CELL HGB CONCENTRATION (test code = MCHC) 30.9 G/DL 33-36.5 L RED CELL DISTRIBUTION WIDTH (test code = RDW) 15.4 % 12.9-16.9 N PLATELET COUNT (test code = PLT) 330 x10 3/uL 150-440 N MEAN PLATELET VOLUME (test c ode = MPV) 9.3 fL 8.9-12.4 N NEUTROPHIL % (test code = NT%) 71.4 % 42.2-75.2 N LYMPHOCYTE % (test code = LY%) 15.5 % 20.5-51.1 L MONOCYTE % (test code = MO%) 7.4 % 1.7-9.3 N EOSINOPHIL % (test code = EO%) 4.2 % 0.0-7.0 N BASOPHIL % (test code = BA%) 0.3 % 0-2.5 N NEUTROPHIL # (test code = NT#) 6.19 x10 3/uL 1.80-7.70 N LYMPHOCYTE # (test code = LY#) 1.34 x10 3/uL 1.00-4.80 N MONOCYTE # (test code = MO#) 0.64 x10 3/uL 0.00-0.80 N EOSINOPHIL # (test code = EO#) 0.36 x10 3/uL 0.00-0.45 N BASOPHIL # (test code = BA#) 0.03 x10 3/uL 0.0-0.20 N - XR CHEST 1 [id number] 16:17:00 [facility] : 1935 Sex: FPatient Name: ROCK GOMEZ Unit No: [id number] EXAMS: CPT CODE: [id number] XR CHEST 1 V [id number] EXAM: - XR CHEST 1 V DATE: 08/24/2023 1:14 PM. INDICATION: post PPM . COMPARISON: Same yearly chest x-ray at 4:59 AM. TECHNIQUE: Frontal chest. Location: W1 FINDINGS: Lines, Tubes and Hardware: Interval placement of left chest dual lead pacemaker in expected position. Retained epicardial pacer wires. Lungs and Pleura: No significant interval change. No pneumothorax. Heart and Mediastinum: The heart size is enlarged but unchanged. The bronchovascular markings are prominent centrally. Bones: Unchanged skeletal structures. Upper abdomen: Within normal limits IMPRESSION: Interval placement of left chest dual lead pacemaker in expected position. No other significant change. Electronically Signedby Ruddy Hernandes MD on 08/24/2023 at 1617 Reported and signed by: Ruddy Hernandes MD CC: Venus ALEXANDRA1 KhvarunMD; Marianne Mckay MD Technologist: Rehan Ruiz Fluoro Time: DAP (Gy m2): Air Kerma (mGy): Trscr Dt/Tm: 08/24/2023 (161) by:[email or web address] Printed Date/Time: 08/24/2023 (1620) Name: ROCK GOMEZ [facility] Phys: [id number] - Venus Junior MD CF1 [address] : 1935 Age: 88 Sex: F [place] [address] Loc: P.0307 1 Exam Date: 08/24/2023 Status: ADM IN PH: FAX: PAGE 1 Signed Report- XR CHEST 1 V 2023-08-24 10:34:00 [facility] : 1935 Sex: FPatient Name: ROCK GOMEZ Unit No: [id number] EXAMS: CPT CODE: [id number] XR CHEST 1 V [id number] EXAM: XR Chest 1 View INDICATION: RESPIRATORY FAILURE LOCATION: A1 COMPARISON: Chest radiograph dated 08/22/2023 TECHNIQUE: Frontal view of the chest was obtained. FINDINGS: Left pleural effusion and underlying left basilar airspace opacities are unchanged from prior. No pneumothorax is seen. The cardio mediastinal silhouette is unchanged. No acute osseous abnormality is identified. IMPRESSION: No significant change from prior. at 1034 Reported and signed by: HOLLIE NGUYEN M.D. CC: Isiah GARCIA; Marianne ChanChildren's Hospital of ColumbusTaty Technologist: CHINMAY LITTLE (R) Fluoro Time: DAP (Gy m2): Air Kerma (mGy): Trscr Dt/Tm: 08/24/2023 (1034) by:[email or web address] Printed Date/Time: 08/24/2023 (1037) Name: ROCK GOMEZ [facility] Phys: Isiah Sullivan [address] : 1935 Age: 88 Sex: F [id number] Loc: P.0307 1 Exam Date: 08/24/2023 Status: ADM IN PH: FAX: PAGE 1 Signed ReportBASIC METABOLIC [id number] 04:23:00* Test Item Value Reference Range Interpretation Comme nts SODIUM (test code = NA) 139 mmol/L 136-145 N POTASSIUM (test code = K) 3.9 mmol/L 3.5-5.1 N CHLORIDE (test code = CL) 108 mmol/l 98-107 H CARBON DIOXIDE (test code = CO2) 24 mmol/L 20-31 N GLUCOSE (test code = GLU) 112 mg/dL 74-106 H BLOOD UREA NITROGEN (test code = BUN) 16 mg/dL 9-23 N GLOMERULAR FILTRATION RATE (test code = GFR) >=60 max estimate mL/min >60 The Glomerular Filtration Rate is a calculated parameterbased on serum Creatinine, patient age and sex. GFR valuesless than 60 mL/min/1.73 square meters are indicative ofChronic Kidney Disease. Values less than 15 mL/min/1.73square meters indicate Kidney failure. The calculation forGFR is based on the CKD-EPI (2020) calculation. This formulais race indifferent and is the recommended formula for GFRby the National Kidney Foundation for Adults.The GFR will not calculate if the sex is unknown or if thepatient's age is <18 years. CREATININE (test code = CREAT) 0.60 mg/dL 0.55-1.02 N CALCIUM (test code = CA) 8.3 mg/dL 8.7-10.4 L [id number] 04:23:00* Test Item Value Reference Range Interpretation Comme nts PHOSPHOROUS (test code = PHOS) 3.4 mg/dL 2.4-5.1 N [id number] 04:23:00* Test Item Value Reference Range Interpretation Comme nts MAGNESIUM (test code = MAG) 1.9 mg/dL 1.6-2.6 N CBC W/AUTO [id number] 04:10:00* Test Item Value Reference Range Interpretation Comme nts WHITE BLOOD CELL (test code = WBC) 8.9 x10 3/uL 4.8-10.8 N RED BLOOD CELL (test code = RBC) 3.38 x10 6/uL 4.20-5.40 L HEMOGLOBIN (test code = HGB) 9.7 g/dL 12.0-16.0 L HEMATOCRIT (test code = HCT) 30.1 % 37.0-47.0 L MEAN CELL VOLUME (test code = MCV) 89.1 fL 81.0-99.0 N MEAN CELL HGB (test code = MCH) 28.7 pg 27-31 N MEAN CELL HGB CONCENTRATION (test code = MCHC) 32.2 G/DL 33-36.5 L RED CELL DISTRIBUTION WIDTH (test code = RDW) 15.6 % 12.9-16.9 N PLATELET COUNT (test code = PLT) 353 x10 3/uL 150-440 N MEAN PLATELET VOLUME (test c ode = MPV) 9.8 fL 8.9-12.4 N NEUTROPHIL % (test code = NT%) 59.3 % 42.2-75.2 N LYMPHOCYTE % (test code = LY%) 25.8 % 20.5-51.1 N MONOCYTE % (test code = MO%) 8.9 % 1.7-9.3 N EOSINOPHIL % (test code = EO%) 3.8 % 0.0-7.0 N BASOPHIL % (test code = BA%) 1.0 % 0-2.5 N NEUTROPHIL # (test code = NT#) 5.29 x10 3/uL 1.80-7.70 N LYMPHOCYTE # (test code = LY#) 2.30 x10 3/uL 1.00-4.80 N MONOCYTE # (test code = MO#) 0.79 x10 3/uL 0.00-0.80 N EOSINOPHIL # (test code = EO#) 0.34 x10 3/uL 0.00-0.45 N BASOPHIL # (test code = BA#) 0.09 x10 3/uL 0.0-0.20 N - XR CHEST 1 [id number] 09:49:00 [facility] : 1935 Sex: FPatient Name: ROCK GOMEZ Unit No: [id number] EXAMS: CPT CODE: [id number] XR CHEST 1 V [id number] Chest Radiograph History: CHEST TUBE REMOVAL Comparison: August 22, 2023 Location: [facility] A single frontal view of the chest is submitted. The heart appears unchanged in size. Pulmonary vasculature is unremarkable. There is a patchy opacity in the left lung base. There is a small left pleural effusion. The bones appear unchanged. IMPRESSION: Patchy opacity left lung base. This could be due to atelectasis or pneumonia. There is a small left pleural effusion. Compared to the prior exam, there has been little change. at 0949 Rep orted and signed by: JIGAR DAWN M.D. CC: Cherri Arias MD; Marianne Mckay MD Technologist: BROOK RODRIGUEZ Fluoro Time: DAP (Gy m2): Air Kerma (mGy): Trscr Dt/Tm: 08/23/2023 (0949) by:[email or web address] Printed Date/Time: 08/23/2023 (0952) Name: ROCK GOMEZ [facility] Phys: ELIN Cherri Arias MD [address] : 1935 Age: 88 Sex: [place] [address] Loc: P.0307 1 Exam Date: 08/23/2023 Status: ADM IN PH: FAX: PAGE 1 Signed ReportBASIC METABOLIC [id number] 03:41:00* Test Item Value Reference Range Interpretation Comme nts SODIUM (test code = NA) 139 mmol/L 136-145 N POTASSIUM (test code = K) 4.4 mmol/L 3.5-5.1 N CHLORIDE (test code = CL) 108 mmol/l 98-107 H CARBON DIOXIDE (test code = CO2) 21 mmol/L 20-31 N GLUCOSE (test code = GLU) 114 mg/dL 74-106 H BLOOD UREA NITROGEN (test code = BUN) 18 mg/dL 9-23 N GLOMERULAR FILTRATION RATE (test code = GFR) >=60 max estimate mL/min >60 The Glomerular Filtration Rate is a calculated parameterbased on serum Creatinine, patient age and sex. GFR valuesless than 60 mL/min/1.73 square meters are indicative ofChronic Kidney Disease. Values less than 15 mL/min/1.73square meters indicate Kidney failure. The calculation forGFR is based on the CKD-EPI (202) calculation. This formulais race indifferent and is the recommended formula for GFRby the National Kidney Foundation for Adults.The GFR will not calculate if the sex is unknown or if thepatient's age is <18 years. CREATININE (test code = CREAT) 0.70 mg/dL 0.55-1.02 N CALCIUM (test code = CA) 8.6 mg/dL 8.7-10.4 L [id number] 03:41:00* Test Item Value Reference Range Interpretation Comme nts PHOSPHOROUS (test code = PHOS) 3.8 mg/dL 2.4-5.1 N [id number] 03:41:00* Test Item Value Reference Range Interpretation Comme nts MAGNESIUM (test code = MAG) 2.2 mg/dL 1.6-2.6 N CBC W/AUTO [id number] 03:14:00* Test Item Value Reference Range Interpretation Comme nts WHITE BLOOD CELL (test code = WBC) 8.7 x10 3/uL 4.8-10.8 N RED BLOOD CELL (test code = RBC) 3.61 x10 6/uL 4.20-5.40 L HEMOGLOBIN (test code = HGB) 10.3 g/dL 12.0-16.0 L HEMATOCRIT (test code = HCT) 32.1 % 37.0-47.0 L MEAN CELL VOLUME (test code = MCV) 88.9 fL 81.0-99.0 N MEAN CELL HGB (test code = MCH) 28.5 pg 27-31 N MEAN CELL HGB CONCENTRATION (test code = MCHC) 32.1 G/DL 33-36.5 L RED CELL DISTRIBUTION WIDTH (test code = RDW) 15.4 % 12.9-16.9 N PLATELET COUNT (test code = PLT) 340 x10 3/uL 150-440 N MEAN PLATELET VOLUME (test c ode = MPV) 9.8 fL 8.9-12.4 N NEUTROPHIL % (test code = NT%) 61.9 % 42.2-75.2 N LYMPHOCYTE % (test code = LY%) 25.1 % 20.5-51.1 N MONOCYTE % (test code = MO%) 9.4 % 1.7-9.3 H EOSINOPHIL % (test code = EO%) 1.6 % 0.0-7.0 N BASOPHIL % (test code = BA%) 0.9 % 0-2.5 N NEUTROPHIL # (test code = NT#) 5.38 x10 3/uL 1.80-7.70 N LYMPHOCYTE # (test code = LY#) 2.18 x10 3/uL 1.00-4.80 N MONOCYTE # (test code = MO#) 0.82 x10 3/uL 0.00-0.80 H EOSINOPHIL # (test code = EO#) 0.14 x10 3/uL 0.00-0.45 N BASOPHIL # (test code = BA#) 0.08 x10 3/uL 0.0-0.20 N ARTERIAL BLOOD [id number] 19:33:00* Test Item Value Reference Range Interpretation Comme [facility] ARTERIAL BLOOD GAS PH (test code = PHA) 7.49 7.35-7.45 H ARTERIAL BLOOD GAS PCO2 (test code = PCO2A) 27.2 mmHg 35.0-45.0 L ARTERIAL BLOOD GAS PO2 (test code = PO2A) 146.0 mmHg 80.0-95.0 H BICARBONATE TOTAL HCO3 (test code = HCO3) 20.2 mmol/L 22.0-24.0 L BASE EXCESS (test code = ZAIN) -2.2 mmol/L See_Comment L [Automated messa ge] The system which generated this result transmitted reference range: (+/-)2.0. The reference range was not used to interpret this result as normal/abnormal. ABG O2 SATURATION (test code = SATA) 99.1 % 95.0-100.0 N ABG TYPE (test code = TYPEA) Arterial ARTERIAL FIO2 (test code = FIO2A) 36.0 % ABG VENT MODE (test code = MODEA) NASAL CANNULA ALLENS TEST (test code = ALLENS) NOT APPLICABLE TOTAL HGB (test code = THB) 10.2 g/dL 12.0-16.0 L TCO2 ARTERIAL (test code = TCO2A) 21.1 MMOL/L 24-30 L BLOOD GAS [id number] 19:31:00* Test Item Value Reference Range Interpretation Comme [facility] ARTERIAL BLOOD GAS PH (test code = PHA) 7.52 7.35-7.45 H ARTERIAL BLOOD GAS PCO2 (test code = PCO2A) 29.2 mmHg 35.0-45.0 L ARTERIAL BLOOD GAS PO2 (test code = PO2A) 78.4 mmHg 80.0-95.0 L BICARBONATE TOTAL HCO3 (test code = HCO3) 23.3 mmol/L 22.0-24.0 N BASE EXCESS (test code = ZAIN) 1.1 mmol/L See_Comment N [Automated message] The system which generated this result transmitted reference range: (+/-)2.0. The reference range was not used to interpret this result as normal/abnormal. ABG O2 SATURATION (test code = SATA) 96.6 % 95.0-100.0 N ARTERIAL FIO2 (test code = FIO2A) 24.0 % ABG VENT MODE (test code = MODEA) Room Air ALLENS TEST (test code = ALLENS) NOT APPLICABLE SODIUM (POC) (test code = NA/ABG) 137 mmol/L 135-147 N POTASSIUM (POC) (test code = K/ABG) 3.53 mmol/L 3.6-5.2 L CHLORIDE (ARTERIAL) (test code = CL/ABG) 102 mmol/L 98-108 N GLUCOSE (test code = GLU/ABG) 166 mg/dL 70-104 H IONIZED CALCIUM (test code = CAIABG) 1.16 mmol/L 1.12-1.32 N POC LACTIC ACID (test code = POCLAC) 1.81 mmol/L 0.5-2.2 N TOTAL HGB (test code = THB) 10.8 g/dL 12.0-16.0 L OXYHEMOGLOBIN (test code = OOHGBT) 95.8 % 92.0-98.0 N CARBOXYHEMOGLOBIN (test code = HOHGBT) 0.5 % 0-5.0 N METHEMOGLOBIN (test code = METHGB) <0.8 % 0-1.5 N HHb (test code = HHB) 3.4 % TCO2 ARTERIAL (test code = TCO2A) 24.2 MMOL/L 24-30 N COMPREHENSIVE METABOLIC [id number] 18:30:00* Test Item Value Reference Range Interpretation Comme nts SODIUM (test code = NA) 140 mmol/L 136-145 N POTASSIUM (test code = K) 4.6 mmol/L 3.5-5.1 CHLORIDE (test code = CL) 110 mmol/l 98-107 H CARBON DIOXIDE (test code = CO2) 18 mmol/L 20-31 L GLUCOSE (test code = GLU) 108 mg/dL 74-106 H BLOOD UREA NITROGEN (test code = BUN) 18 mg/dL 9-23 N GLOMERULAR FILTRATION RATE (test code = GFR) >=60 max estimate mL/min >60 The Glomerular Filtration Rate is a calculated parameterbased on serum Creatinine, patient age and sex. GFR valuesless than 60 mL/min/1.73 square meters are indicative ofChronic Kidney Disease. Values less than 15 mL/min/1.73square meters indicate Kidney failure. The calculation forGFR is based on the CKD-EPI (2020) calculation. This formulais race indifferent and is the recommended formula for GFRby the National Kidney Foundation for Adults.The GFR will not calculate if the sex is unknown or if thepatient's age is <18 years. CREATININE (test code = CREAT) 0.60 mg/dL 0.55-1.02 N TOTAL PROTEIN (test code = PROT) 6.1 g/dL 5.7-8.2 N ALBUMIN (test code = ALB) 3.8 g/dL 3.2-4.8 N CALCIUM (test code = CA) 8.2 mg/dL 8.7-10.4 L BILIRUBIN TOTAL (test code = BILT) 0.7 mg/dL 0.3-1.2 N SGOT/AST (test code = AST) 22 U/L <34 N SGPT/ALT (test code = ALT) 11 U/L 10-49 N ALKALINE PHOSPHATASE (test code = ALKP) 86.0 U/L 46-116 N [id number] 18:30:00* Test Item Value Reference Range Interpretation Comme nts PHOSPHOROUS (test code = PHOS) 3.2 mg/dL 2.4-5.1 N [id number] 18:30:00* Test Item Value Reference Range Interpretation Comme nts MAGNESIUM (test code = MAG) 2.1 mg/dL 1.6-2.6 N - XR CHEST 1 [id number] 12:54:00 [facility] 1935 Sex: FPatient Name: ROCK GOMEZ Unit No: [id number] EXAMS: CPT CODE: [id number] XR CHEST 1 V [id number] EXAM: XR Chest 1 View INDICATION: SOB LOCATION: A1 COMPARISON: Chest radiograph dated 08/22/2023 TECHNIQUE: Frontal view of the chest was obtained. FINDINGS: There is decrease in left pleural effusion with mild improved aeration of the left lung base. Lungs are otherwise clear. There is trace right pleural effusion. No pneumothorax is seen. The cardiomediastinal silhouette is unchanged. No acute osseous abnormality is identified. IMPRESSION: Decrease in left pleural effusion with improved aeration of the left lung base. at 1254 Reported and signed by: HOLLIE NGUYEN M.D. CC: Seamus Ibarra MD; Marianne Mckay MD Technologist: IRMA HAYWARD RT (R); Francia Durand Time: DAP (Gy m2): Air Kerma (mGy):Trscr Dt/Tm: 08/22/2023 (1254) by:[email or web address] Printed Date/Time: 08/22/2023 (1257) Name: ROCK GOMEZ [facility] Phys: Seamus Handley MD [address] : 1935 Age: 88 Sex: [place] [address] Loc: P.0307 1 Exam Date: 08/22/2023 Status: ADM IN PH: FAX: PAGE 1 Signed ReportCOMPREHENSIVE METABOLIC PANEL 2023-08-22 12:44:00* Test Item Value Reference Range Interpretation Comme nts SODIUM (test code = NA) 139 mmol/L 136-145 N POTASSIUM (test code = K) 3.4 mmol/L 3.5-5.1 L CHLORIDE (test code = CL) 108 mmol/l 98-107 H CARBON DIOXIDE (test code = CO2) 23 mmol/L 20-31 N GLUCOSE (test code = GLU) 159 mg/dL 74-106 H BLOOD UREA NITROGEN (test code = BUN) 18 mg/dL 9-23 N GLOMERULAR FILTRATION RATE (test code = GFR) >=60 max estimate mL/min >60 The Glomerular Filtration Rate is a calculated parameterbased on serum Creatinine, patient age and sex. GFR valuesless than 60 mL/min/1.73 square meters are indicative ofChronic Kidney Disease. Values less than 15 mL/min/1.73square meters indicate Kidney failure. The calculation forGFR is based on the CKD-EPI (202) calculation. This formulais race indifferent and is the recommended formula for GFRby the National Kidney Foundation for Adults.The GFR will not calculate if the sex is unknown or if thepatient's age is <18 years. CREATININE (test code = CREAT) 0.70 mg/dL 0.55-1.02 N TOTAL PROTEIN (test code = PROT) 6.0 g/dL 5.7-8.2 N ALBUMIN (test code = ALB) 3.8 g/dL 3.2-4.8 N CALCIUM (test code = CA) 8.6 mg/dL 8.7-10.4 L BILIRUBIN TOTAL (test code = BILT) 0.7 mg/dL 0.3-1.2 N SGOT/AST (test code = AST) 23 U/L <34 N SGPT/ALT (test code = ALT) 12 U/L 10-49 N ALKALINE PHOSPHATASE (test code = ALKP) 87.0 U/L 46-116 N [id number] 12:44:00* Test Item Value Reference Range Interpretation Comme nts PHOSPHOROUS (test code = PHOS) 2.2 mg/dL 2.4-5.1 L [id number] 12:44:00* Test Item Value Reference Range Interpretation Comme nts MAGNESIUM (test code = MAG) 2.2 mg/dL 1.6-2.6 N - XR CHEST 1 [id number] 11:16:00 [facility] : 1935 Sex: FPatient Name: ROCK GOMEZ Unit No: [id number] EXAMS: CPT CODE: [id number] XR CHEST 1 V [id number] EXAM: XR Chest 1 View INDICATION: S/P CABG LOCATION: H50 COMPARISON: Chest radiograph dated 08/21/2023 TECHNIQUE: Frontal view of the chest was obtained. FINDINGS: Left pleural effusion and underlying left basilar airspace opacities are similar to prior. There is a right internal jugular central venous catheter has been removed. No pneumothorax is seen. The cardiomediastinal silhouette is unchanged.No acute osseous abnormality is identified. IMPRESSION: Interval removal of right internal jugular central venous catheter, otherwise unchanged radiograph. at 1116 Reported and signed by: HOLLIE NGUYEN M.D. CC: Cherri Arias MD; Marianne Mckay MD Technologist: Ike Durand Time: DAP (Gy m2): Air Kerma (mGy): Trscr Dt/Tm: 08/22/2023 (1116) by:[email or web address] Printed Date/Time: 08/22/2023 (1119) Name: ROCK GOMEZ [facility] Phys: BELL.Balaji Cherri Arias MD [id number] : 1935 Age: 88 Sex: [place] [id number] Loc: P.[id number] 1 Exam Date: 08/22/2023 Status: ADM INPH: FAX: PAGE 1 Signed ReportBASIC METABOLIC [id number] 04:41:00* Test Item Value Reference Range Interpretation Comme nts SODIUM (test code = NA) 141 mmol/L 136-145 N POTASSIUM (test code = K) 3.3 mmol/L 3.5-5.1 L CHLORIDE (test code = CL) 109 mmol/l 98-107 H CARBON DIOXIDE (test code = CO2) 21 mmol/L 20-31 N GLUCOSE (test code = GLU) 93 mg/dL 74-106 N BLOOD UREA NITROGEN (test code = BUN) 16 mg/dL 9-23 N GLOMERULAR FILTRATION RATE (test code = GFR) >=60 max estimate mL/min >60 The Glomerular Filtration Rate is a calculated parameterbased on serum Creatinine, patient age and sex. GFR valuesless than 60 mL/min/1.73 square meters are indicative ofChronic Kidney Disease. Values less than 15 mL/min/1.73square meters indicate Kidney failure. The calculation forGFR is based on the CKD-EPI (2020) calculation. This formulais race indifferent and is the recommended formula for GFRby the National Kidney Foundation for Adults.The GFR will not calculate if the sex is unknown or if thepatient's age is <18 years. CREATININE (test code = CREAT) 0.50 mg/dL 0.55-1.02 L CALCIUM (test code = CA) 8.0 mg/dL 8.7-10.4 L [id number] 04:41:00* Test Item Value Reference Range Interpretation Comme nts MAGNESIUM (test code = MAG) 1.7 mg/dL 1.6-2.6 N CBC W/AUTO [id number] 04:26:00* Test Item Value Reference Range Interpretation Comme nts WHITE BLOOD CELL (test code = WBC) 8.0 x10 3/uL 4.8-10.8 N RED BLOOD CELL (test code = RBC) 3.21 x10 6/uL 4.20-5.40 L HEMOGLOBIN (test code = HGB) 9.3 g/dL 12.0-16.0 L HEMATOCRIT (test code = HCT) 28.5 % 37.0-47.0 L MEAN CELL VOLUME (test code = MCV) 88.8 fL 81.0-99.0 N MEAN CELL HGB (test code = MCH) 29.0 pg 27-31 N MEAN CELL HGB CONCENTRATION (test code = MCHC) 32.6 G/DL 33-36.5 L RED CELL DISTRIBUTION WIDTH (test code = RDW) 14.9 % 12.9-16.9 N PLATELET COUNT (test code = PLT) 259 x10 3/uL 150-440 N MEAN PLATELET VOLUME (test c ode = MPV) 9.4 fL 8.9-12.4 N NEUTROPHIL % (test code = NT%) 68.8 % 42.2-75.2 N LYMPHOCYTE % (test code = LY%) 18.8 % 20.5-51.1 L MONOCYTE % (test code = MO%) 9.2 % 1.7-9.3 N EOSINOPHIL % (test code = EO%) 1.5 % 0.0-7.0 N BASOPHIL % (test code = BA%) 0.7 % 0-2.5 N NEUTROPHIL # (test code = NT#) 5.53 x10 3/uL 1.80-7.70 N LYMPHOCYTE # (test code = LY#) 1.51 x10 3/uL 1.00-4.80 N MONOCYTE # (test code = MO#) 0.74 x10 3/uL 0.00-0.80 N EOSINOPHIL # (test code = EO#) 0.12 x10 3/uL 0.00-0.45 N BASOPHIL # (test code = BA#) 0.06 x10 3/uL 0.0-0.20 N - XR CHEST 1 [id number] 08:32:00 [facility] 1935 Sex: FPatient Name: ROCK GOMEZ Unit No: [id number] EXAMS: CPT CODE: [id number] XR CHEST 1 V [id number] EXAM: XR Chest 1 View INDICATION: ICU LOCATION: H50 COMPARISON: Chest radiograph dated 08/20 TECHNIQUE: Frontal view of the chest was obtained. FINDINGS: Right internal jugular sheath is in unchanged placement. Right basilar airspace opacities have decreased from prior. Left pleural effusion and left basilar airspace opacities are unchanged. No pneumothorax is seen. The cardiomediastinal silhouette is unchanged. No acute osseous abnormality is identified. IMPRESSION: Decrease in right basilar airspace opacities, otherwise unchanged radiograph. at 0832 Reported and signed by: HOLLIE NGUYEN M.D. CC: Meir Shoemaker MD; Marianne Mckay MD Technologist: Ike Durand Time: DAP (Gy m2): Air Kerma (mGy): Trscr Dt/Tm: 08/21/2023 (0832) by:[email or web address] Printed Date/Time: 08/21/2023 (0835) Name: ROCK GOMEZ [facility] Phys: Meir Celaya MD [address] DOB: 1935 Age: 88Sex: [place] [address] Loc: P.0307 1 Exam Date: 08/21/2023 Status: ADM IN PH: FAX: PAGE 1 Signed ReportBASIC METABOLIC [id number] 03:30:00* Test Item Value Reference Range Interpretation Comme nts SODIUM (test code = NA) 141 mmol/L 136-145 N POTASSIUM (test code = K) 3.4 mmol/L 3.5-5.1 L CHLORIDE (test code = CL) 105 mmol/l 98-107 N CARBON DIOXIDE (test code = CO2) 25 mmol/L 20-31 N GLUCOSE (test code = GLU) 107 mg/dL 74-106 H BLOOD UREA NITROGEN (test code = BUN) 15 mg/dL 9-23 N GLOMERULAR FILTRATION RATE (test code = GFR) >=60 max estimate mL/min >60 The Glomerular Filtration Rate is a calculated parameterbased on serum Creatinine, patient age and sex. GFR valuesless than 60 mL/min/1.73 square meters are indicative ofChronic Kidney Disease. Values less than 15 mL/min/1.73square meters indicate Kidney failure. The calculation forGFR is based on the CKD-EPI (2020) calculation. This formulais race indifferent and is the recommended formula for GFRby the National Kidney Foundation for Adults.The GFR will not calculate if the sex is unknown or if thepatient's age is <18 years. CREATININE (test code = CREAT) 0.50 mg/dL 0.55-1.02 L CALCIUM (test code = CA) 8.7 mg/dL 8.7-10.4 N [id number] 03:30:00* Test Item Value Reference Range Interpretation Comme nts PHOSPHOROUS (test code = PHOS) 3.0 mg/dL 2.4-5.1 N [id number] 03:30:00* Test Item Value Reference Range Interpretation Comme nts MAGNESIUM (test code = MAG) 1.7 mg/dL 1.6-2.6 N CBC W/AUTO [id number] 03:22:00* Test Item Value Reference Range Interpretation Comme nts WHITE BLOOD CELL (test code = WBC) 7.7 x10 3/uL 4.8-10.8 N RED BLOOD CELL (test code = RBC) 3.16 x10 6/uL 4.20-5.40 L HEMOGLOBIN (test code = HGB) 9.1 g/dL 12.0-16.0 L HEMATOCRIT (test code = HCT) 27.7 % 37.0-47.0 L MEAN CELL VOLUME (test code = MCV) 87.7 fL 81.0-99.0 N MEAN CELL HGB (test code = MCH) 28.8 pg 27-31 N MEAN CELL HGB CONCENTRATION (test code = MCHC) 32.9 G/DL 33-36.5 L RED CELL DISTRIBUTION WIDTH (test code = RDW) 14.9 % 12.9-16.9 N PLATELET COUNT (test code = PLT) 233 x10 3/uL 150-440 N MEAN PLATELET VOLUME (test c ode = MPV) 10.3 fL 8.9-12.4 N NEUTROPHIL % (test code = NT%) 65.8 % 42.2-75.2 N LYMPHOCYTE % (test code = LY%) 21.5 % 20.5-51.1 N MONOCYTE % (test code = MO%) 10.2 % 1.7-9.3 H EOSINOPHIL % (test code = EO%) 1.3 % 0.0-7.0 N BASOPHIL % (test code = BA%) 0.8 % 0-2.5 N NEUTROPHIL # (test code = NT#) 5.05 x10 3/uL 1.80-7.70 N LYMPHOCYTE # (test code = LY#) 1.65 x10 3/uL 1.00-4.80 N MONOCYTE # (test code = MO#) 0.78 x10 3/uL 0.00-0.80 N EOSINOPHIL # (test code = EO#) 0.10 x10 3/uL 0.00-0.45 N BASOPHIL # (test code = BA#) 0.06 x10 3/uL 0.0-0.20 N BASIC METABOLIC [id number] 13:00:00* Test Item Value Reference Range Interpretation Comme nts SODIUM (test code = NA) 142 mmol/L 136-145 N POTASSIUM (test code = K) 3.7 mmol/L 3.5-5.1 N CHLORIDE (test code = CL) 109 mmol/l 98-107 H CARBON DIOXIDE (test code = CO2) 22 mmol/L 20-31 N GLUCOSE (test code = GLU) 121 mg/dL 74-106 H BLOOD UREA NITROGEN (test code = BUN) 15 mg/dL 9-23 N GLOMERULAR FILTRATION RATE (test code = GFR) >=60 max estimate mL/min >60 The Glomerular Filtration Rate is a calculated parameterbased on serum Creatinine, patient age and sex. GFR valuesless than 60 mL/min/1.73 square meters are indicative ofChronic Kidney Disease. Values less than 15 mL/min/1.73square meters indicate Kidney failure. The calculation forGFR is based on the CKD-EPI (2020) calculation. This formulais race indifferent and is the recommended formula for GFRby the National Kidney Foundation for Adults.The GFR will not calculate if the sex is unknown or if thepatient's age is <18 years. CREATININE (test code = CREAT) 0.50 mg/dL 0.55-1.02 L CALCIUM (test code = CA) 8.9 mg/dL 8.7-10.4 N [id number] 13:00:00* Test Item Value Reference Range Interpretation Comme nts PHOSPHOROUS (test code = PHOS) 1.6 mg/dL 2.4-5.1 L [id number] 13:00:00* Test Item Value Reference Range Interpretation Comme nts MAGNESIUM (test code = MAG) 1.6 mg/dL 1.6-2.6 N BLOOD GAS [id number] 10:01:00* Test Item Value Reference Range Interpretation Comme nts ARTERIAL BLOOD GAS PH (test code = PHA) 7.47 7.35-7.45 H ARTERIAL BLOOD GAS PCO2 (test code = PCO2A) 32.9 mmHg 35.0-45.0 L ARTERIAL BLOOD GAS PO2 (test code = PO2A) 101.1 mmHg 80.0-95.0 H BICARBONATE TOTAL HCO3 (test code = HCO3) 23.2 mmol/L 22.0-24.0 N BASE EXCESS (test code = ZAIN) 0.0 mmol/L See_Comment N [Automated message] The system which generated this result transmitted reference range: (+/-)2.0. The reference range was not used to interpret this result as normal/abnormal. ABG O2 SATURATION (test code = SATA) 97.9 % 95.0-100.0 N ARTERIAL FIO2 (test code = FIO2A) 40.0 % ABG VENT MODE (test code = MODEA) NASAL CANNULA ALLENS TEST (test code = ALLENS) NOT APPLICABLE SODIUM (POC) (test code = NA/ABG) 139 mmol/L 135-147 N POTASSIUM (POC) (test code = K/ABG) 4.71 mmol/L 3.6-5.2 N CHLORIDE (ARTERIAL) (test code = CL/ABG) 105 mmol/L 98-108 N GLUCOSE (test code = GLU/ABG) 110 mg/dL 70-104 H IONIZED CALCIUM (test code = CAIABG) 1.23 mmol/L 1.12-1.32 N POC LACTIC ACID (test code = POCLAC) 1.59 mmol/L 0.5-2.2 N TOTAL HGB (test code = THB) 11.1 g/dL 12.0-16.0 L OXYHEMOGLOBIN (test code = OOHGBT) 97.5 % 92.0-98.0 N CARBOXYHEMOGLOBIN (test code = HOHGBT) 0.1 % 0-5.0 N METHEMOGLOBIN (test code = METHGB) <0.8 % 0-1.5 N HHb (test code = HHB) 2.1 % TCO2 ARTERIAL (test code = TCO2A) 24.3 MMOL/L 24-30 N - XR CHEST 1 [id number] 08:41:00 [facility] 1935 Sex: FPatient Name: ROCK GOMEZ Unit No: [id number] EXAMS: CPT CODE: [id number] XR CHEST 1 V [id number] EXAM: XR Chest 1 View INDICATION: ICU LOCATION: A1 COMPARISON: Chest radiograph dated 08/19/2023 TECHNIQUE: Frontal view of the chest was obtained. FINDINGS: Right internal jugular sheath is in unchanged placement. Mediastinal drain and left chest tube have been removed. There is increase in right basilar subsegmental atelectasis with questionable right pleural effusion. Left basilar airspace opacities are unchanged. No pneumothorax is seen. The cardiomediastinal silhouette is unchanged. No acute osseous abnormality is identified. IMPRESSION: 1. Increase in right basilar airspace opacities with questionable right pleural effusion. 2. Interval removal of mediastinal drain and left chest tube. 3. Otherwise unchanged radiograph. at 0841 Reported and signed by: HOLLIE NGUYEN M.D. CC: Marianne Mckay MD; Jake Turner NP Technologist: Ike Durand Time: DAP (Gy m2): Air Kerma (mGy): Trscr Dt/Tm: 08/20/2023 (0841) by:[email or web address] Printed Date/Time: 08/20/2023 (0844) Name: ROCK GOMEZ [facility] Phys: Jake Hu NP [address] : 1935 Age: 88 [place]: [place] [address] Loc: P.0307 1 Exam Date: 08/20/2023 Status: ADM IN PH: FAX: PAGE 1 Signed ReportBASIC METABOLIC PANEL 2023-08-20 04:11:00* Test Item Value Reference Range Interpretation Comme nts SODIUM (test code = NA) 141 mmol/L 136-145 N POTASSIUM (test code = K) 3.4 mmol/L 3.5-5.1 L CHLORIDE (test code = CL) 108 mmol/l 98-107 H CARBON DIOXIDE (test code = CO2) 27 mmol/L 20-31 N GLUCOSE (test code = GLU) 112 mg/dL 74-106 H BLOOD UREA NITROGEN (test code = BUN) 16 mg/dL 9-23 N GLOMERULAR FILTRATION RATE (test code = GFR) >=60 max estimate mL/min >60 The Glomerular Filtration Rate is a calculated parameterbased on serum Creatinine, patient age and sex. GFR valuesless than 60 mL/min/1.73 square meters are indicative ofChronic Kidney Disease. Values less than 15 mL/min/1.73square meters indicate Kidney failure. The calculation forGFR is based on the CKD-EPI (2020) calculation. This formulais race indifferent and is the recommended formula for GFRby the National Kidney Foundation for Adults.The GFR will not calculate if the sex is unknown or if thepatient's age is <18 years. CREATININE (test code = CREAT) 0.50 mg/dL 0.55-1.02 L CALCIUM (test code = CA) 8.7 mg/dL 8.7-10.4 N [id number] 04:11:00* Test Item Value Reference Range Interpretation Comme nts PHOSPHOROUS (test code = PHOS) 2.1 mg/dL 2.4-5.1 L [id number] 04:11:00* Test Item Value Reference Range Interpretation Comme nts MAGNESIUM (test code = MAG) 1.6 mg/dL 1.6-2.6 N CBC W/AUTO [id number] 04:00:00* Test Item Value Reference Range Interpretation Comme nts WHITE BLOOD CELL (test code = WBC) 7.8 x10 3/uL 4.8-10.8 N RED BLOOD CELL (test code = RBC) 3.04 x10 6/uL 4.20-5.40 L HEMOGLOBIN (test code = HGB) 8.8 g/dL 12.0-16.0 L HEMATOCRIT (test code = HCT) 27.1 % 37.0-47.0 L MEAN CELL VOLUME (test code = MCV) 89.1 fL 81.0-99.0 N MEAN CELL HGB (test code = MCH) 28.9 pg 27-31 N MEAN CELL HGB CONCENTRATION (test code = MCHC) 32.5 G/DL 33-36.5 L RED CELL DISTRIBUTION WIDTH (test code = RDW) 15.4 % 12.9-16.9 N PLATELET COUNT (test code = PLT) 173 x10 3/uL 150-440 N MEAN PLATELET VOLUME (test c ode = MPV) 9.6 fL 8.9-12.4 N NEUTROPHIL % (test code = NT%) 66.3 % 42.2-75.2 N LYMPHOCYTE % (test code = LY%) 18.6 % 20.5-51.1 L MONOCYTE % (test code = MO%) 12.9 % 1.7-9.3 H EOSINOPHIL % (test code = EO%) 1.1 % 0.0-7.0 N BASOPHIL % (test code = BA%) 0.5 % 0-2.5 N NEUTROPHIL # (test code = NT#) 5.18 x10 3/uL 1.80-7.70 N LYMPHOCYTE # (test code = LY#) 1.46 x10 3/uL 1.00-4.80 N MONOCYTE # (test code = MO#) 1.01 x10 3/uL 0.00-0.80 H EOSINOPHIL # (test code = EO#) 0.09 x10 3/uL 0.00-0.45 N BASOPHIL # (test code = BA#) 0.04 x10 3/uL 0.0-0.20 N - XR CHEST 1 [id number] 09:32:00 [facility] : 1935 Sex: FPatient Name: ROCK GOMEZ Unit No: [id number] EXAMS: CPT CODE: [id number] XR CHEST 1 V 53484 Location: A1 EXAM: - XR CHEST 1 V INDICATION: post CABG COMPARISON: 08/18/2023 TECHNIQUE: AP Chest FINDINGS: Lines, tubes and hardware: Redemonstration of median sternotomy wires. Interval removal of a right-sided Jackson-Elizabeth catheter. Right-sided CVC sheath tip overlies the expected location the inferior SVC. Approximately unchanged mediastinal drain. Redemonstration of a left-sided chest tube. Lungsand pleura: Similar appearance of mild bilateral perihilar, and left lower lobe/retrocardiac opacities and a suspected small left-sided pleural effusion. No appreciable pneumothorax. Heart/mediastinum: The cardiomediastinal silhouette is enlarged, but stable. Bones/soft tissues: No acute bony abnormality. IMPRESSION: 1. Lines and tubes, as above. 2. Otherwise, no significant interval change. at 0932 Reported and signed by:FIOR OTT M.D. CC: Rachana Baltazar MD; Marianne Mckay MD Technologist: CHINMAY LITTLE(R) Fluoro Time: DAP (Gy m2): Air Kerma (mGy): Trscr Dt/Tm: 08/19/2023 (0932) by:[email or web address] PrintedDate/Time: 08/19/2023 (0935) Name: ROCK GOMEZ [facility] Phys: CHRISTINE.Balaji - Rachana Baltazar V [address] : 1935 Age: 88 Sex: [place] [address] Loc: P.0307 1 Exam Date: 08/19/2023 Status: ADM IN PH: FAX: PAGE 1 Signed ReportCBC W/AUTO [id number] 04:26:00* Test Item Value Reference Range Interpretation Comme nts WHITE BLOOD CELL (test code = WBC) 9.7 x10 3/uL 4.8-10.8 N RED BLOOD CELL (test code = RBC) 3.20 x10 6/uL 4.20-5.40 L HEMOGLOBIN (test code = HGB) 9.2 g/dL 12.0-16.0 L HEMATOCRIT (test code = HCT) 28.6 % 37.0-47.0 L MEAN CELL VOLUME (test code = MCV) 89.4 fL 81.0-99.0 N MEAN CELL HGB (test code = MCH) 28.8 pg 27-31 N MEAN CELL HGB CONCENTRATION (test code = MCHC) 32.2 G/DL 33-36.5 L RED CELL DISTRIBUTION WIDTH (test code = RDW) 15.8 % 12.9-16.9 N PLATELET COUNT (test code = PLT) 167 x10 3/uL 150-440 N MEAN PLATELET VOLUME (test c ode = MPV) 10.0 fL 8.9-12.4 N NEUTROPHIL % (test code = NT%) 72.3 % 42.2-75.2 N LYMPHOCYTE % (test code = LY%) 11.5 % 20.5-51.1 L MONOCYTE % (test code = MO%) 15.2 % 1.7-9.3 H EOSINOPHIL % (test code = EO%) 0.2 % 0.0-7.0 N BASOPHIL % (test code = BA%) 0.3 % 0-2.5 N NEUTROPHIL # (test code = NT#) 6.99 x10 3/uL 1.80-7.70 N LYMPHOCYTE # (test code = LY#) 1.11 x10 3/uL 1.00-4.80 N MONOCYTE # (test code = MO#) 1.47 x10 3/uL 0.00-0.80 H EOSINOPHIL # (test code = EO#) 0.02 x10 3/uL 0.00-0.45 N BASOPHIL # (test code = BA#) 0.03 x10 3/uL 0.0-0.20 N BASIC METABOLIC [id number] 02:17:00* Test Item Value Reference Range Interpretation Comme nts SODIUM (test code = NA) 140 mmol/L 136-145 N POTASSIUM (test code = K) 4.1 mmol/L 3.5-5.1 N CHLORIDE (test code = CL) 108 mmol/l 98-107 H CARBON DIOXIDE (test code = CO2) 23 mmol/L 20-31 N GLUCOSE (test code = GLU) 125 mg/dL 74-106 H BLOOD UREA NITROGEN (test code = BUN) 21 mg/dL 9-23 N GLOMERULAR FILTRATION RATE (test code = GFR) >=60 max estimate mL/min >60 The Glomerular Filtration Rate is a calculated parameterbased on serum Creatinine, patient age and sex. GFR valuesless than 60 mL/min/1.73 square meters are indicative ofChronic Kidney Disease. Values less than 15 mL/min/1.73square meters indicate Kidney failure. The calculation forGFR is based on the CKD-EPI (2020) calculation. This formulais race indifferent and is the recommended formula for GFRby the National Kidney Foundation for Adults.The GFR will not calculate if the sex is unknown or if thepatient's age is <18 years. CREATININE (test code = CREAT) 0.70 mg/dL 0.55-1.02 N CALCIUM (test code = CA) 8.8 mg/dL 8.7-10.4 N [id number] 02:17:00* Test Item Value Reference Range Interpretation Comme nts MAGNESIUM (test code = MAG) 1.9 mg/dL 1.6-2.6 N BLOOD GAS [id number] 16:30:00* Test Item Value Reference Range Interpretation Comme nts ARTERIAL BLOOD GAS PH (test code = PHA) 7.45 7.35-7.45 N ARTERIAL BLOOD GAS PCO2 (test code = PCO2A) 34.5 mmHg 35.0-45.0 L ARTERIAL BLOOD GAS PO2 (test code = PO2A) 85.6 mmHg 80.0-95.0 N BICARBONATE TOTAL HCO3 (test code = HCO3) 23.2 mmol/L 22.0-24.0 N BASE EXCESS (test code = ZAIN) -0.5 mmol/L See_Comment N [Automated message] The system which generated this result transmitted reference range: (+/-)2.0. The reference range was not used to interpret this result as normal/abnormal. ABG O2 SATURATION (test code = SATA) 97.1 % 95.0-100.0 N ARTERIAL FIO2 (test code = FIO2A) 28.0 % ABG VENT MODE (test code = MODEA) NASAL CANNULA ALLENS TEST (test code = ALLENS) NOT APPLICABLE SODIUM (POC) (test code = NA/ABG) 141 mmol/L 135-147 N POTASSIUM (POC) (test code = K/ABG) 4.40 mmol/L 3.6-5.2 N CHLORIDE (ARTERIAL) (test code = CL/ABG) 106 mmol/L 98-108 N GLUCOSE (test code = GLU/ABG) 143 mg/dL 70-104 H IONIZED CALCIUM (test code = CAIABG) 1.24 mmol/L 1.12-1.32 N POC LACTIC ACID (test code = POCLAC) 2.07 mmol/L 0.5-2.2 N TOTAL HGB (test code = THB) 11.5 g/dL 12.0-16.0 L OXYHEMOGLOBIN (test code = OOHGBT) 96.2 % 92.0-98.0 N CARBOXYHEMOGLOBIN (test code = HOHGBT) 0.6 % 0-5.0 N METHEMOGLOBIN (test code = METHGB) <0.8 % 0-1.5 N HHb (test code = HHB) 2.9 % TCO2 ARTERIAL (test code = TCO2A) 24.2 MMOL/L 24-30 N - XR CHEST 1 [id number] 13:42:00 [facility] 1935 Sex: FPatient Name: ROCK GOMEZ Unit No: [id number] EXAMS: CPT CODE: [id number] XR CHEST 1 V 16913 Location: A1 EXAM: - XR CHEST 1 V INDICATION: Cardiac Surgery Postop COMPARISON: 08/17/2023 TECHNIQUE: AP Chest FINDINGS: Lines, tubes and hardware: Median sternotomy wires redemonstrated. Interval removal of an endotracheal tube and enteric tube. Approximately unchanged mediastinal drain. Right-sided Jackson- Elizabeth catheter tip overlies the expected location the right pulmonary artery. Lungs and pleura: Low lung volumes limit evaluation. New suspected small left- sided pleural effusion. Slight worseningof left lower lobe/retrocardiac opacities. Right costophrenic sulcus is sharp. No appreciable pneumothorax. Heart/mediastinum: The cardiomediastinal silhouette is enlarged, but stable. Bones/soft tissues: No acute bony abnormality. IMPRESSION: 1. Lines and tubes, as above. 2. Suspect a new small left-sided pleural effusion. 3. Slight interval worsening of left lower lobe/retrocardiac opacities, which may reflect atelectasis and/or pneumonia. at 1342 Reported and signed by: FIOR OTT M.D. CC: Ce Davidson MD; Marianne Mckay MD Technologist: CHINMAY LITTLE (R) Fluoro Time: DAP (Gy m2): Air Kerma (mGy): Trscr Dt/Tm: 08/18/2023 (1342) by:[email or web address] Printed Date/Time: 08/18/2023 (1345) Name: ROCK GOMEZ [facility] Phys: Ce Pineda [address] : 1935 Age: 88 Sex: [place] [address] Loc: P.0307 1 Exam Date: 08/18/2023 Status: ADM IN PH: FAX: PAGE 1 Signed ReportBLOOD GAS [id number] 06:27:00* Test Item Value Reference Range Interpretation Comme nts ARTERIAL BLOOD GAS PH (test code = PHA) 7.36 7.35-7.45 N ARTERIAL BLOOD GAS PCO2 (test code = PCO2A) 40.0 mmHg 35.0-45.0 N ARTERIAL BLOOD GAS PO2 (test code = PO2A) 148.6 mmHg 80.0-95.0 H BICARBONATE TOTAL HCO3 (test code = HCO3) 22.2 mmol/L 22.0-24.0 N BASE EXCESS (test code = ZAIN) -3.0 mmol/L See_Comment L [Automated message] The system which generated this result transmitted reference range: (+/-)2.0. The reference range was not used to interpret this result as normal/abnormal. ABG O2 SATURATION (test code = SATA) 98.8 % 95.0-100.0 N ARTERIAL FIO2 (test code = FIO2A) 36.0 % ABG VENT MODE (test code = MODEA) NASAL CANNULA ALLENS TEST (test code = ALLENS) NOT APPLICABLE SODIUM (POC) (test code = NA/ABG) 140 mmol/L 135-147 N POTASSIUM (POC) (test code = K/ABG) 4.42 mmol/L 3.6-5.2 N CHLORIDE (ARTERIAL) (test code = CL/ABG) 105 mmol/L 98-108 N GLUCOSE (test code = GLU/ABG) 142 mg/dL 70-104 H IONIZED CALCIUM (test code = CAIABG) 1.26 mmol/L 1.12-1.32 N POC LACTIC ACID (test code = POCLAC) 1.46 mmol/L 0.5-2.2 N TOTAL HGB (test code = THB) 11.7 g/dL 12.0-16.0 L OXYHEMOGLOBIN (test code = OOHGBT) 98.7 % 92.0-98.0 H CARBOXYHEMOGLOBIN (test code = HOHGBT) 0.1 % 0-5.0 N METHEMOGLOBIN (test code = METHGB) <0.8 % 0-1.5 N HHb (test code = HHB) 1.2 % TCO2 ARTERIAL (test code = TCO2A) 23.4 MMOL/L 24-30 L BLOOD GAS W/[id number] 06:25:00* Test Item Value Reference Range Interpretation Comme [facility] ARTERIAL BLOOD GAS PH (test code = PHA) 7.37 7.35-7.45 N ARTERIAL BLOOD GAS PCO2 (test code = PCO2A) 39.2 mmHg 35.0-45.0 N ARTERIAL BLOOD GAS PO2 (test code = PO2A) 127.6 mmHg 80.0-95.0 H BICARBONATE TOTAL HCO3 (test code = HCO3) 22.2 mmol/L 22.0-24.0 N BASE EXCESS (test code = ZAIN) -2.8 mmol/L See_Comment L [Automated message] The system which generated this result transmitted reference range: (+/-)2.0. The reference range was not used to interpret this result as normal/abnormal. ABG O2 SATURATION (test code = SATA) 98.5 % 95.0-100.0 N ARTERIAL FIO2 (test code = FIO2A) 32.0 % ABG VENT MODE (test code = MODEA) NASAL CANNULA ALLENS TEST (test code = ALLENS) NOT APPLICABLE SODIUM (POC) (test code = NA/ABG) 141 mmol/L 135-147 N POTASSIUM (POC) (test code = K/ABG) 4.33 mmol/L 3.6-5.2 N CHLORIDE (ARTERIAL) (test code = CL/ABG) 106 mmol/L 98-108 N GLUCOSE (test code = GLU/ABG) 145 mg/dL 70-104 H IONIZED CALCIUM (test code = CAIABG) 1.25 mmol/L 1.12-1.32 N POC LACTIC ACID (test code = POCLAC) 1.74 mmol/L 0.5-2.2 N TOTAL HGB (test code = THB) 11.6 g/dL 12.0-16.0 L OXYHEMOGLOBIN (test code = OOHGBT) 97.9 % 92.0-98.0 N CARBOXYHEMOGLOBIN (test code = HOHGBT) 0.3 % 0-5.0 N METHEMOGLOBIN (test code = METHGB) <0.8 % 0-1.5 N HHb (test code = HHB) 1.5 % TCO2 ARTERIAL (test code = TCO2A) 23.4 MMOL/L 24-30 L VENOUS BLOOD [id number] 06:25:00* Test Item Value Reference Range Interpretation Comme [facility] VENOUS BLOOD GAS PH (test code = PHV) 7.35 7.35-7.45 N VENOUS BLOOD GAS PCO2 (test code = PCO2V) 45.2 mmHg See_Comment [Automated messa ge] The system which generated this result transmitted reference range: 46. The reference range was not used to interpret this result as normal/abnormal. VENOUS BLOOD GAS PO2 (test code = PO2V) 33.5 mmHg See_Comment [Automated messa ge] The system which generated this result transmitted reference range: 40. The reference range was not used to interpret this result as normal/abnormal. VBG HCO3 (test code = HCO3V) 24 meq/L VBG BASE EXCESS (test code = RADHA) -1.6 MMOL/L VENOUS BLOOD GAS O2 SAT (test code = O2SATV) 62 % See_Comment [Automated messa ge] The system which generated this result transmitted reference range: 75. The reference range was not used to interpret this result as normal/abnormal. VENOUS BLOOD GAS TYPE (test code = TYPEV) Venous VENOUS BLOOD GAS FIO2 (test code = FIO2V) 32.0 % VBG VENT MODE (test code = MODEV) NC [id number] 04:01:00* Test Item Value Reference Range Interpretation Comme nts PHOSPHOROUS (test code = PHOS) 5.1 mg/dL 2.4-5.1 N BASIC METABOLIC [id number] 03:49:00* Test Item Value Reference Range Interpretation Comme nts SODIUM (test code = NA) 144 mmol/L 136-145 N POTASSIUM (test code = K) 4.2 mmol/L 3.5-5.1 N CHLORIDE (test code = CL) 112 mmol/l 98-107 H CARBON DIOXIDE (test code = CO2) 19 mmol/L 20-31 L GLUCOSE (test code = GLU) 137 mg/dL 74-106 H BLOOD UREA NITROGEN (test code = BUN) 20 mg/dL 9-23 N GLOMERULAR FILTRATION RATE (test code = GFR) >=60 max estimate mL/min >60 The Glomerular Filtration Rate is a calculated parameterbased on serum Creatinine, patient age and sex. GFR valuesless than 60 mL/min/1.73 square meters are indicative ofChronic Kidney Disease. Values less than 15 mL/min/1.73square meters indicate Kidney failure. The calculation forGFR is based on the CKD-EPI (202) calculation. This formulais race indifferent and is the recommended formula for GFRby the National Kidney Foundation for Adults.The GFR will not calculate if the sex is unknown or if thepatient's age is <18 years. CREATININE (test code = CREAT) 0.80 mg/dL 0.55-1.02 N CALCIUM (test code = CA) 8.4 mg/dL 8.7-10.4 L LIVER FUNCTION [id number] 03:49:00* Test Item Value Reference Range Interpretation Comme nts TOTAL PROTEIN (test code = PROT) 5.3 g/dL 5.7-8.2 L ALBUMIN (test code = ALB) 3.4 g/dL 3.2-4.8 N BILIRUBIN TOTAL (test code = BILT) 0.5 mg/dL 0.3-1.2 N BILIRUBIN DIRECT (test code = BILD) 0.2 mg/dL <0.3 N SGOT/AST (test code = AST) 52 U/L <34 H SGPT/ALT (test code = ALT) 14 U/L 10-49 N ALKALINE PHOSPHATASE (test c ode = ALKP) 61.0 U/L 46-116 N [id number] 03:49:00* Test Item Value Reference Range Interpretation Comme nts MAGNESIUM (test code = MAG) 2.0 mg/dL 1.6-2.6 N PROTHROMBIN [id number] 03:36:00* Test Item Value Reference Range Interpretation Comme nts PROTHROMBIN TIME PATIENT (test code = PTP) 12.5 SECONDS 10.3-12.9 N INTERNATIONAL NORMAL RATIO (test code = INR) 1.12 0.9-1.11 H INR goals are individualized based on patient specificfactors. The following are only general guidelines: Indications: INR Goal:1. Treatment of venous thromboembolism and 2.0 - 3.0 systemic anticoagulation in a variety of conditions, including atrial fibrillation and mechanical heart valves 2. Mechanical mitral and tricuspid valves, 2.5 - 3.5 systemic anticoagulation for high-risk conditions THROMBOPLASTIN TIME [id number] 03:36:00* Test Item Value Reference Range Interpretation Comme nts THROMBOPLASTIN TIME PARTIAL (test code = PTT) 23.8 secs 23.8-34.8 INTERPRETATIVE D ARMANI: Therapeutic range: Unfractionated Heparin: 60-90 seconds Argatroban: 60-90 seconds CBC W/AUTO [id number] 03:28:00* Test Item Value Reference Range Interpretation Comme nts WHITE BLOOD CELL (test code = WBC) 8.4 x10 3/uL 4.8-10.8 N RED BLOOD CELL (test code = RBC) 3.59 x10 6/uL 4.20-5.40 L HEMOGLOBIN (test code = HGB) 10.3 g/dL 12.0-16.0 L HEMATOCRIT (test code = HCT) 31.5 % 37.0-47.0 L MEAN CELL VOLUME (test code = MCV) 87.7 fL 81.0-99.0 N MEAN CELL HGB (test code = MCH) 28.7 pg 27-31 N MEAN CELL HGB CONCENTRATION (test code = MCHC) 32.7 G/DL 33-36.5 L RED CELL DISTRIBUTION WIDTH (test code = RDW) 15.9 % 12.9-16.9 N PLATELET COUNT (test code = PLT) 176 x10 3/uL 150-440 N MEAN PLATELET VOLUME (test c ode = MPV) 10.0 fL 8.9-12.4 N NEUTROPHIL % (test code = NT%) 77.8 % 42.2-75.2 H LYMPHOCYTE % (test code = LY%) 7.2 % 20.5-51.1 L MONOCYTE % (test code = MO%) 14.5 % 1.7-9.3 H EOSINOPHIL % (test code = EO%) 0.0 % 0.0-7.0 N BASOPHIL % (test code = BA%) 0.1 % 0-2.5 N NEUTROPHIL # (test code = NT#) 6.51 x10 3/uL 1.80-7.70 N LYMPHOCYTE # (test code = LY#) 0.60 x10 3/uL 1.00-4.80 L MONOCYTE # (test code = MO#) 1.21 x10 3/uL 0.00-0.80 H EOSINOPHIL # (test code = EO#) 0.00 x10 3/uL 0.00-0.45 N BASOPHIL # (test code = BA#) 0.01 x10 3/uL 0.0-0.20 N BASIC METABOLIC [id number] 00:12:00* Test Item Value Reference Range Interpretation Comme nts SODIUM (test code = NA) 143 mmol/L 136-145 N POTASSIUM (test code = K) 4.4 mmol/L 3.5-5.1 N CHLORIDE (test code = CL) 111 mmol/l 98-107 H CARBON DIOXIDE (test code = CO2) 19 mmol/L 20-31 L GLUCOSE (test code = GLU) 146 mg/dL 74-106 H BLOOD UREA NITROGEN (test code = BUN) 20 mg/dL 9-23 N GLOMERULAR FILTRATION RATE (test code = GFR) >=60 max estimate mL/min >60 The Glomerular Filtration Rate is a calculated parameterbased on serum Creatinine, patient age and sex. GFR valuesless than 60 mL/min/1.73 square meters are indicative ofChronic Kidney Disease. Values less than 15 mL/min/1.73square meters indicate Kidney failure. The calculation forGFR is based on the CKD-EPI (2020) calculation. This formulais race indifferent and is the recommended formula for GFRby the National Kidney Foundation for Adults.The GFR will not calculate if the sex is unknown or if thepatient's age is <18 years. CREATININE (test code = CREAT) 0.80 mg/dL 0.55-1.02 N CALCIUM (test code = CA) 8.7 mg/dL 8.7-10.4 N [id number] 00:12:00* Test Item Value Reference Range Interpretation Comme nts PHOSPHOROUS (test code = PHOS) 5.3 mg/dL 2.4-5.1 H [id number] 00:12:00* Test Item Value Reference Range Interpretation Comme nts MAGNESIUM (test code = MAG) 2.1 mg/dL 1.6-2.6 N BLOOD GAS [id number]/[id number] 22:37:00* Test Item Value Reference Range Interpretation Comme nts ARTERIAL BLOOD GAS PH (test code = PHA) 7.36 7.35-7.45 N ARTERIAL BLOOD GAS PCO2 (test code = PCO2A) 39.2 mmHg 35.0-45.0 N ARTERIAL BLOOD GAS PO2 (test code = PO2A) 145.4 mmHg 80.0-95.0 H BICARBONATE TOTAL HCO3 (test code = HCO3) 21.6 mmol/L 22.0-24.0 L BASE EXCESS (test code = ZAIN) -3.5 mmol/L See_Comment L [Automated message] The system which generated this result transmitted reference range: (+/-)2.0. The reference range was not used to interpret this result as normal/abnormal. ABG O2 SATURATION (test code = SATA) 98.7 % 95.0-100.0 N ARTERIAL FIO2 (test code = FIO2A) 36.0 % ABG VENT MODE (test code = MODEA) NASAL CANNULA ALLENS TEST (test code = ALLENS) NOT APPLICABLE SODIUM (POC) (test code = NA/ABG) 140 mmol/L 135-147 N POTASSIUM (POC) (test code = K/ABG) 4.38 mmol/L 3.6-5.2 N CHLORIDE (ARTERIAL) (test code = CL/ABG) 106 mmol/L 98-108 N GLUCOSE (test code = GLU/ABG) 146 mg/dL 70-104 H IONIZED CALCIUM (test code = CAIABG) 1.27 mmol/L 1.12-1.32 N POC LACTIC ACID (test code = POCLAC) 1.42 mmol/L 0.5-2.2 N TOTAL HGB (test code = THB) 11.8 g/dL 12.0-16.0 L OXYHEMOGLOBIN (test code = OOHGBT) 98.4 % 92.0-98.0 H CARBOXYHEMOGLOBIN (test code = HOHGBT) 0.3 % 0-5.0 N METHEMOGLOBIN (test code = METHGB) <0.8 % 0-1.5 N HHb (test code = HHB) 1.3 % TCO2 ARTERIAL (test code = TCO2A) 22.9 MMOL/L 24-30 L BASIC METABOLIC [id number] 18:48:00* Test Item Value Reference Range Interpretation Comme nts SODIUM (test code = NA) 142 mmol/L 136-145 N POTASSIUM (test code = K) 4.3 mmol/L 3.5-5.1 N CHLORIDE (test code = CL) 108 mmol/l 98-107 H CARBON DIOXIDE (test code = CO2) 20 mmol/L 20-31 N GLUCOSE (test code = GLU) 149 mg/dL 74-106 H BLOOD UREA NITROGEN (test code = BUN) 23 mg/dL 9-23 N GLOMERULAR FILTRATION RATE (test code = GFR) >=60 max estimate mL/min >60 The Glomerular Filtration Rate is a calculated parameterbased on serum Creatinine, patient age and sex. GFR valuesless than 60 mL/min/1.73 square meters are indicative ofChronic Kidney Disease. Values less than 15 mL/min/1.73square meters indicate Kidney failure. The calculation forGFR is based on the CKD-EPI (2020) calculation. This formulais race indifferent and is the recommended formula for GFRby the National Kidney Foundation for Adults.The GFR will not calculate if the sex is unknown or if thepatient's age is <18 years. CREATININE (test code = CREAT) 0.80 mg/dL 0.55-1.02 N CALCIUM (test code = CA) 9.3 mg/dL 8.7-10.4 N [id number] 18:48:00* Test Item Value Reference Range Interpretation Comme nts PHOSPHOROUS (test code = PHOS) 5.0 mg/dL 2.4-5.1 N [id number] 18:48:00* Test Item Value Reference Range Interpretation Comme nts MAGNESIUM (test code = MAG) 2.4 mg/dL 1.6-2.6 N - XR ABDOMEN [id number] 15:54:00 [facility] 1935 Sex: FPatient Name: ROCK GOMEZ Unit No: [id number] EXAMS: CPT CODE: [id number] XR ABDOMEN 1V [id number] EXAM: XR ABDOMEN 1 VIEW INDICATION: OG TUBE PLACEMENT LOCATION: A1 COMPARISON: Chest radiograph date08/17/2023 at 1338 hours TECHNIQUE: AP view of the abdomen. FINDINGS: Esophagogastric tube is in place with tip and side-port in the stomach. Other lines and tubes can be seen in the lower thorax appear unchanged from prior chest radiograph. Bowel gas pattern is nonobstructive. IMPRESSION: Esophagogastric tube with tip and side-port in the stomach. at 1554 Reported and signed by: HOLLIE NGUYEN M.D. CC: Bharati Hodges MD; Marianne Mckay MD Technologist: JABARI RODRIGUEZ Fluoro Time: DAP (Gy m2): Air Kerma (mGy): Trscr Dt/Tm: 08/17/2023 (1554) by:[email or web address] Printed Date/Time: 08/17/2023 (2137) Name: ROCK GOMEZ [facility] Phys: Bharati Mccurdy MD [address] : 1935 Age: 88 Sex: F [address] [id number] Loc: P.0307 1 Exam Date: 08/17/2023 Status: ADM IN PH: FAX: PAGE 1 Signed ReportVENOUS BLOOD [id number] 14:04:00* Test Item Value Reference Range Interpretation Comme nts VENOUS BLOOD GAS PH (test code = PHV) 7.29 7.35-7.45 L VENOUS BLOOD GAS PCO2 (test code = PCO2V) 44.8 mmHg See_Comment [Automated [place] [employer]] The system which generated this result transmitted reference range: 46. The reference range was not used to interpret this result as normal/abnormal. VENOUS BLOOD GAS PO2 (test code = PO2V) 38.6 mmHg See_Comment [Automated [place]] The system which generated this result transmitted reference range: 40. The reference range was not used to interpret this result as normal/abnormal. VBG HCO3 (test code = HCO3V) 21 meq/L VBG BASE EXCESS (test code = RADHA) -5.2 MMOL/L VENOUS BLOOD GAS O2 SAT (test code = O2SATV) 68 % See_Comment [Automated [place]] The system which generated this result transmitted reference range: 75. The reference range was not used to interpret this result as normal/abnormal. VENOUS BLOOD GAS TYPE (test code = TYPEV) Venous VENOUS BLOOD GAS FIO2 (test code = FIO2V) 40.0 % VBG VENT MODE (test code = MODEV) Ventilator [id number] 14:03:00* Test Item Value Reference Range Interpretation Comme nts PHOSPHOROUS (test code = PHOS) 4.3 mg/dL 2.4-5.1 N [id number] 14:03:00* Test Item Value Reference Range Interpretation Comme nts MAGNESIUM (test code = MAG) 2.9 mg/dL 1.6-2.6 H BASIC METABOLIC [id number] 14:03:00* Test Item Value Reference Range Interpretation Comme nts SODIUM (test code = NA) 143 mmol/L 136-145 POTASSIUM (test code = K) 4.3 mmol/L 3.5-5.1 N CHLORIDE (test code = CL) 112 mmol/l 98-107 H CARBON DIOXIDE (test code = CO2) 19 mmol/L 20-31 L GLUCOSE (test code = GLU) 141 mg/dL 74-106 H BLOOD UREA NITROGEN (test code = BUN) 22 mg/dL 9-23 N GLOMERULAR FILTRATION RATE (test code = GFR) >=60 max estimate mL/min >60 The Glomerular Filtration Rate is a calculated parameterbased on serum Creatinine, patient age and sex. GFR valuesless than 60 mL/min/1.73 square meters are indicative ofChronic Kidney Disease. Values less than 15 mL/min/1.73square meters indicate Kidney failure. The calculation forGFR is based on the CKD-EPI (2020) calculation. This formulais race indifferent and is the recommended formula for GFRby the National Kidney Foundation for Adults.The GFR will not calculate if the sex is unknown or if thepatient's age is <18 years. CREATININE (test code = CREAT) 0.70 mg/dL 0.55-1.02 N CALCIUM (test code = CA) 9.7 mg/dL 8.7-10.4 N LACTIC [id number] 13:58:00* Test Item Value Reference Range Interpretation Comme nts LACTIC ACID (test code = LACT) 0.80 mmol/L 0.5-2.0 N PROTHROMBIN [id number] 13:58:00* Test Item Value Reference Range Interpretation Comme nts PROTHROMBIN TIME PATIENT (test code = PTP) 14.3 SECONDS 10.3-12.9 H INTERNATIONAL NORMAL RATIO (test code = INR) 1.29 0.9-1.11 H INR goals are individualized based on patient specificfactors. The following are only general guidelines: Indications: INR Goal:1. Treatment of venous thromboembolism and 2.0 - 3.0 systemic anticoagulation in a variety of conditions, including atrial fibrillation and mechanical heart valves 2. Mechanical mitral and tricuspid valves, 2.5 - 3.5 systemic anticoagulation for high-risk conditions THROMBOPLASTIN TIME [id number] 13:58:00* Test Item Value Reference Range Interpretation Comme nts THROMBOPLASTIN TIME PARTIAL (test code = PTT) 30.7 secs 23.8-34.8 INTERPRETATIVE D ARMANI: Therapeutic range: Unfractionated Heparin: 60-90 seconds Argatroban: 60-90 seconds CBC W/AUTO [id number] 13:51:00* Test Item Value Reference Range Interpretation Comme nts WHITE BLOOD CELL (test code = WBC) 10.8 x10 3/uL 4.8-10.8 N RED BLOOD CELL (test code = RBC) 3.84 x10 6/uL 4.20-5.40 L HEMOGLOBIN (test code = HGB) 11.0 g/dL 12.0-16.0 L HEMATOCRIT (test code = HCT) 33.6 % 37.0-47.0 L MEAN CELL VOLUME (test code = MCV) 87.5 fL 81.0-99.0 N MEAN CELL HGB (test code = MCH) 28.6 pg 27-31 N MEAN CELL HGB CONCENTRATION (test code = MCHC) 32.7 G/DL 33-36.5 L RED CELL DISTRIBUTION WIDTH (test code = RDW) 14.7 % 12.9-16.9 N PLATELET COUNT (test code = PLT) 139 x10 3/uL 150-440 L MEAN PLATELET VOLUME (test c ode = MPV) 9.3 fL 8.9-12.4 N NEUTROPHIL % (test code = NT%) 78.5 % 42.2-75.2 H LYMPHOCYTE % (test code = LY%) 10.9 % 20.5-51.1 L MONOCYTE % (test code = MO%) 8.8 % 1.7-9.3 N EOSINOPHIL % (test code = EO%) 0.7 % 0.0-7.0 N BASOPHIL % (test code = BA%) 0.4 % 0-2.5 N NEUTROPHIL # (test code = NT#) 8.46 x10 3/uL 1.80-7.70 H LYMPHOCYTE # (test code = LY#) 1.18 x10 3/uL 1.00-4.80 N MONOCYTE # (test code = MO#) 0.95 x10 3/uL 0.00-0.80 H EOSINOPHIL # (test code = EO#) 0.08 x10 3/uL 0.00-0.45 N BASOPHIL # (test code = BA#) 0.04 x10 3/uL 0.0-0.20 N - XR CHEST 1 [id number] 13:49:00 [facility] : 1935 Sex: FPatient Name: ROCK GOMEZ Unit No: [id number] EXAMS: CPT CODE: [id number] XR CHEST 1 V [id number] EXAM: XR Chest 1 View INDICATION: Cardiac Surgery Postop LOCATION: A1 COMPARISON: Chest radiograph dated 08/09/2023 TECHNIQUE: Frontal view of the chest was obtained. FINDINGS: Endotracheal tube has its tip 3.0 cm from the zaida. Right internal jugular pulmonary arterial catheter has its tip overlying the main pulmonary trunk. Mediastinal drain and left chest tube are in place. There is mild pulmonary vascular congestion. There is no pleural effusion or pneumothorax. The cardiomediastinal silhouette is nonenlarged. Median sternotomy wires have been placed. IMPRESSION: 1. Postsurgical changes with interval placement of multiple lines and tubes as above. 2. Mild pulmonary vascular congestion. at 1349 Reported and signed by: HOLLIE NGUYEN M.D. CC: Ce Davidson MD; Marianne Mckay MD Technologist: JABARI RODRIGUEZ Fluoro Time: DAP (Gy m2): Air Kerma (mGy): Trscr Dt/Tm: 08/17/2023 (1349) by:[email or web address] Printed Date/Time: 08/17/2023 (6652) Name: ROCK GOMEZ [facility] Phys: Ce Pineda [address] : 1935 Age: 88 Sex: [place] [address] Loc: P.0307 1 Exam Date: 08/17/2023 Status: ADM IN PH: FAX: PAGE 1 Signed ReportCOAGULATION TIME [id number] 12:38:00* Test Item Value Reference Range Interpretation Comme nts COAGULATION TIME ACTIVATED ( test code = ACT) 136 SECONDS 74-137 N COAGULATION TIME [id number] 12:04:00* Test Item Value Reference Range Interpretation Comme nts COAGULATION TIME ACTIVATED ( test code = ACT) 515 SECONDS 74-137 H COAGULATION TIME [id number] 11:31:00* Test Item Value Reference Range Interpretation Comme nts COAGULATION TIME ACTIVATED ( test code = ACT) 580 SECONDS 74-137 H COAGULATION TIME [id number] 11:04:00* Test Item Value Reference Range Interpretation Comme nts COAGULATION TIME ACTIVATED ( test code = ACT) 590 SECONDS 74-137 H COAGULATION TIME [id number] 10:36:00* Test Item Value Reference Range Interpretation Comme nts COAGULATION TIME ACTIVATED ( test code = ACT) 585 SECONDS 74-137 H CBC W/AUTO [id number] 07:34:00* Test Item Value Reference Range Interpretation Comme nts WHITE BLOOD CELL (test code = WBC) 7.2 x10 3/uL 4.8-10.8 N RED BLOOD CELL (test code = RBC) 3.90 x10 6/uL 4.20-5.40 L HEMOGLOBIN (test code = HGB) 11.5 g/dL 12.0-16.0 L HEMATOCRIT (test code = HCT) 35.0 % 37.0-47.0 L MEAN CELL VOLUME (test code = MCV) 89.7 fL 81.0-99.0 N MEAN CELL HGB (test code = MCH) 29.5 pg 27-31 N MEAN CELL HGB CONCENTRATION (test code = MCHC) 32.9 G/DL 33-36.5 L RED CELL DISTRIBUTION WIDTH (test code = RDW) 13.5 % 12.9-16.9 N PLATELET COUNT (test code = PLT) 303 x10 3/uL 150-440 N MEAN PLATELET VOLUME (test c ode = MPV) 9.4 fL 8.9-12.4 N NEUTROPHIL % (test code = NT%) 58.3 % 42.2-75.2 N LYMPHOCYTE % (test code = LY%) 24.8 % 20.5-51.1 N MONOCYTE % (test code = MO%) 11.5 % 1.7-9.3 H EOSINOPHIL % (test code = EO%) 4.1 % 0.0-7.0 N BASOPHIL % (test code = BA%) 1.0 % 0-2.5 N NEUTROPHIL # (test code = NT#) 4.22 x10 3/uL 1.80-7.70 N LYMPHOCYTE # (test code = LY#) 1.79 x10 3/uL 1.00-4.80 N MONOCYTE # (test code = MO#) 0.83 x10 3/uL 0.00-0.80 H EOSINOPHIL # (test code = EO#) 0.30 x10 3/uL 0.00-0.45 N BASOPHIL # (test code = BA#) 0.07 x10 3/uL 0.0-0.20 N COMPREHENSIVE METABOLIC [id number] 21:50:00* Test Item Value Reference Range Interpretation Comme nts SODIUM (test code = NA) 132 mmol/L 136-145 L POTASSIUM (test code = K) 4.6 mmol/L 3.5-5.1 N CHLORIDE (test code = CL) 101 mmol/l 98-107 N CARBON DIOXIDE (test code = CO2) 23 mmol/L 20-31 N GLUCOSE (test code = GLU) 102 mg/dL 74-106 N BLOOD UREA NITROGEN (test code = BUN) 28 mg/dL 9-23 H GLOMERULAR FILTRATION RATE (test code = GFR) 49 mL/min >60 L The Glomerular Filtration Rate is a calculated parameterbased on serum Creatinine, patient age and sex. GFR valuesless than 60 mL/min/1.73 square meters are indicative ofChronic Kidney Disease. Values less than 15 mL/min/1.73square meters indicate Kidney failure. The calculation forGFR is based on the CKD-EPI (2020) calculation. This formulais race indifferent and is the recommended formula for GFRby the National Kidney Foundation for Adults.The GFR will not calculate if the sex is unknown or if thepatient's age is <18 years. CREATININE (test code = CREAT) 1.10 mg/dL 0.55-1.02 H TOTAL PROTEIN (test code = PROT) 7.6 g/dL 5.7-8.2 N ALBUMIN (test code = ALB) 4.5 g/dL 3.2-4.8 N CALCIUM (test code = CA) 9.3 mg/dL 8.7-10.4 N BILIRUBIN TOTAL (test code = BILT) 0.6 mg/dL 0.3-1.2 N SGOT/AST (test code = AST) 24 U/L <34 N SGPT/ALT (test code = ALT) 21 U/L 10-49 N ALKALINE PHOSPHATASE (test code = ALKP) 115.0 U/L 46-116 N PROTHROMBIN [id number] 21:48:00* Test Item Value Reference Range Interpretation Comme nts PROTHROMBIN TIME PATIENT (test code = PTP) 12.1 SECONDS 10.3-12.9 N INTERNATIONAL NORMAL RATIO (test code = INR) 1.08 0.9-1.11 N INR goals are individualized based on patient specificfactors. The following are only general guidelines: Indications: INR Goal:1. Treatment of venous thromboembolism and 2.0 - 3.0 systemic anticoagulation in a variety of conditions, including atrial fibrillation and mechanical heart valves 2. Mechanical mitral and tricuspid valves, 2.5 - 3.5 systemic anticoagulation for high-risk conditions THROMBOPLASTIN TIME [id number] 21:48:00* Test Item Value Reference Range Interpretation Comme nts THROMBOPLASTIN TIME PARTIAL (test code = PTT) 21.7 secs 23.8-34.8 L INTERPRETATIVE D ARMANI: Therapeutic range: Unfractionated Heparin: 60-90 seconds Argatroban: 60-90 seconds CBC W/AUTO [id number] 20:39:00* Test Item Value Reference Range Interpretation Comme nts WHITE BLOOD CELL (test code = WBC) 6.7 x10 3/uL 4.8-10.8 N RED BLOOD CELL (test code = RBC) 3.74 x10 6/uL 4.20-5.40 L HEMOGLOBIN (test code = HGB) 11.1 g/dL 12.0-16.0 L HEMATOCRIT (test code = HCT) 34.3 % 37.0-47.0 L MEAN CELL VOLUME (test code = MCV) 91.7 fL 81.0-99.0 N MEAN CELL HGB (test code = MCH) 29.7 pg 27-31 N MEAN CELL HGB CONCENTRATION (test code = MCHC) 32.4 G/DL 33-36.5 L RED CELL DISTRIBUTION WIDTH (test code = RDW) 13.7 % 12.9-16.9 N PLATELET COUNT (test code = PLT) 262 x10 3/uL 150-440 N MEAN PLATELET VOLUME (test c ode = MPV) 9.4 fL 8.9-12.4 N NEUTROPHIL % (test code = NT%) 59.2 % 42.2-75.2 N LYMPHOCYTE % (test code = LY%) 22.4 % 20.5-51.1 N MONOCYTE % (test code = MO%) 13.7 % 1.7-9.3 H EOSINOPHIL % (test code = EO%) 3.9 % 0.0-7.0 N BASOPHIL % (test code = BA%) 0.7 % 0-2.5 N NEUTROPHIL # (test code = NT#) 3.98 x10 3/uL 1.80-7.70 N LYMPHOCYTE # (test code = LY#) 1.51 x10 3/uL 1.00-4.80 N MONOCYTE # (test code = MO#) 0.92 x10 3/uL 0.00-0.80 H EOSINOPHIL # (test code = EO#) 0.26 x10 3/uL 0.00-0.45 N BASOPHIL # (test code = BA#) 0.05 x10 3/uL 0.0-0.20 N CBC W/AUTO [id number] 20:39:00* Test Item Value Reference Range Interpretation Comme nts WHITE BLOOD CELL (test code = WBC) 6.6 x10 3/uL 4.8-10.8 N RED BLOOD CELL (test code = RBC) 3.12 x10 6/uL 4.20-5.40 L HEMOGLOBIN (test code = HGB) 9.3 g/dL 12.0-16.0 L HEMATOCRIT (test code = HCT) 30.0 % 37.0-47.0 L MEAN CELL VOLUME (test code = MCV) 96.2 fL 81.0-99.0 N MEAN CELL HGB (test code = MCH) 29.8 pg 27-31 N MEAN CELL HGB CONCENTRATION (test code = MCHC) 31.0 G/DL 33-36.5 L RED CELL DISTRIBUTION WIDTH (test code = RDW) 14.2 % 12.9-16.9 N PLATELET COUNT (test code = PLT) 145 x10 3/uL 150-440 L MEAN PLATELET VOLUME (test c ode = MPV) 10.4 fL 8.9-12.4 N NEUTROPHIL % (test code = NT%) 68.1 % 42.2-75.2 N LYMPHOCYTE % (test code = LY%) 18.2 % 20.5-51.1 L MONOCYTE % (test code = MO%) 10.4 % 1.7-9.3 H EOSINOPHIL % (test code = EO%) 2.4 % 0.0-7.0 N BASOPHIL % (test code = BA%) 0.6 % 0-2.5 N NEUTROPHIL # (test code = NT#) 4.52 x10 3/uL 1.80-7.70 N LYMPHOCYTE # (test code = LY#) 1.21 x10 3/uL 1.00-4.80 N MONOCYTE # (test code = MO#) 0.69 x10 3/uL 0.00-0.80 N EOSINOPHIL # (test code = EO#) 0.16 x10 3/uL 0.00-0.45 N BASOPHIL # (test code = BA#) 0.04 x10 3/uL 0.0-0.20 N - DUP EXTRACRANIAL [id number] 13:11:00 [facility] 1935 Sex: FPatient Name: ROCK GOMEZ Unit No: [id number] EXAMS: CPT CODE: [id number] DUP EXTRACRANIAL JERMAINE [id number] Location: C3 EXAM: - DUP EXTRACRANIAL JERMAINE INDICATION: Pre op (CABG) COMPARISON: None TECHNIQUE: Multiplanar grayscale, color Doppler and spectral Doppler ultrasound of the carotid and vertebral arteries. FINDINGS: Right Carotid System: Right Common Carotid Artery (RCCA): Peak systolic velocity(PSV) of 59 cm/s. Right Internal Carotid Artery (DEVON): PSV of 84 cm/s. There is atheromatous plaque. Right External Carotid Artery (RECA): PSV of 36 cm/s. ICA/CCA RATIO: 1.4 Right Vertebral Artery (RVA): Antegrade flow. Left Carotid System: Left Common Carotid Artery (LCCA): PSV of 57 cm/s. Left Internal Carotid Artery (LICA): PSV of 74 cm/s. There is atheromatous plaque. Left External Carotid Artery (LECA): PSV of 112 cm/s. ICA/CCA RATIO: 1.3 Left Vertebral Artery (LVA): Antegrade flow. IMPRESSION: 1. Right internal carotid artery: <50% stenosis. 2. Left internal carotid artery: <50% stenosis. 3. Vertebral arteries: Antegrade flow bilaterally. 4. Asymmetrically increased peak systolic velocity within left external carotid artery, which may suggest origin stenosis. This may be further evaluated with a CTA neck. According to the 2003 Consensus criteria: <50% stenosis: PSV <125 cm/sec, EDV <40cm/sec, ICA:CCA ratio <2 50-69% stenosis: PSV 125-230cm/sec, EDV 40-100cm/sec, ICA:CCA ratio 2-4 >70% stenosis: PSV >230cm/sec, EDV >100cm/sec, ICA:CCA ratio >4 REFERENCE: Radiology. 2003 229:[id number]. Carotid Artery Stenosis: Dowling-scale and Doppler US diagnosis- Society of Radiologists in Ultrasound Consensus Name: ROCK GOMEZ [facility] Phys: King Montilla MD [address] : 1935 Age: 88 Sex: [place] [address] Loc: [phone] A Exam Date: 08/16/2023 Status: ADM IN PH: FAX: PAGE 1 Signed Report (CONTINUED) Patient Name: ROCK GOMEZ Unit No: [id number] EXAMS: CPT CODE: [id number] DUP EXTRACRANIAL JERMAINE 14656 (Continued) Conference. [place] EG, Filemon CB, Charla GL, et. al. at 1311 Reported and signed by: FIOR OTT M.D. CC: Melonie HUTCHINS; Marianne Mckay MD Technologist: LIAT CHAN RDMS, AB Probe: Trscr Dt/Tm: 08/16/2023 (1311) by:[email or web address] Printed Date/Time: 08/16/2023 (1314) Name: ROCK GOMEZ [facility] Phys: King Montilla MD [address] : 1935 Age: 88 Sex: [place] [address] Loc: [phone] A Exam Date: 08/16/2023 Status: ADM IN PH: FAX: PAGE 2 Signed Report- DUP VEIN [id number] 12:31:00[facility] : 1935 Sex: FPatient Name: ROCK GOMEZ Unit No: [id number] EXAMS: CPT CODE: [id number] DUP VEIN JERMAINE [id number] EXAM: Ultrasound Bilateral lower extremity venous mapping HISTORY: Vein mapping - CABG in AM LOCATION: A1 TECHNIQUE: Grayscale real-time B-mode imaging was performed of the bilateral lower extremities for venous mapping. COMPARISON: None available time of interpretation. FINDINGS: Right sided veins: Femoral Proximal thigh- 0.8 cm Mid thigh- 0.5 cm Distal thigh- 0.9 cm Greater saphenous Proximal thigh- 0.3 cm Rest of the right greater saphenous vein cannot be visualized. SSV Proximal- 0.1 cm Mid calf- 0.1 cm Distal - 0.1 cm Left sided veins: Femoral Proximal thigh- 0.6 cm Mid thigh- 0.6 cm Distal thigh- 0.6 cm Greater saphenous Proximal thigh- 0.3 cm Mid thigh- 0.2 cm Rest of the left greater saphenous vein could not be visualized. SSV Proximal- 0.1 cm Mid calf- 0.1 cm Distal - 0.1 cm IMPRESSION: Bilateral lower extremity venous mapping as above. Name: ROCK GOMEZ [facility] Phys: Frances Headley [address] : 1935 Age: 88 Sex: [place] [address] Loc: [phone] A Exam Date: 08/16/2023 Status: ADM IN PH: FAX: PAGE 1 Signed Report (CONTINUED) Patient Name: ROCK GOMEZ Unit No: [id number] EXAMS: CPT CODE: [id number] DUP VEIN JERMAINE [id number] (Continued) at 1231 Reported and signed by: HOLLIE NGUYEN M.D. CC: Frances GARCIA; Marianne Mckay MD Technologist: LIAT CHAN RDMS, Probe: Trscr Dt/Tm: 08/16/2023 (1231) by:[email or web address] Printed Date/Time: 08/16/2023 (4623) Name: ROCK GOMEZ [facility] Phys: Frances Headley Emily GARCIA [address] : 1935 Age: 88 Sex: [place] [address] Loc: [phone] Exam Date: 08/16/2023 Status: ADM IN PH: FAX: PAGE 2 Signed ReportTHROMBOPLASTIN TIME [id number] 06:44:00* Test Item Value Reference Range Interpretation Comme nts THROMBOPLASTIN TIME PARTIAL (test code = PTT) 113.3 secs 23.8-34.8 HH Critical Value reported toFirst Name:mono Last Name:RESULTS READ BACK AND VERIFIEDby [id number], on 08/15/23, @ 0644.INTERPRETATIVE DATA: Therapeutic range: Unfractionated Heparin: 60-90 seconds Argatroban: 60-90 seconds Spec Comments: RE-DRAWCBC W/AUTO [id number] 06:21:00* Test Item Value Reference Range Interpretation Comme nts WHITE BLOOD CELL (test code = WBC) 6.8 x10 3/uL 4.8-10.8 N RED BLOOD CELL (test code = RBC) 4.09 x10 6/uL 4.20-5.40 L HEMOGLOBIN (test code = HGB) 12.0 g/dL 12.0-16.0 N HEMATOCRIT (test code = HCT) 37.8 % 37.0-47.0 N MEAN CELL VOLUME (test code = MCV) 92.4 fL 81.0-99.0 N MEAN CELL HGB (test code = MCH) 29.3 pg 27-31 N MEAN CELL HGB CONCENTRATION (test code = MCHC) 31.7 G/DL 33-36.5 L RED CELL DISTRIBUTION WIDTH (test code = RDW) 14.0 % 12.9-16.9 N PLATELET COUNT (test code = PLT) 293 x10 3/uL 150-440 N MEAN PLATELET VOLUME (test c ode = MPV) 9.4 fL 8.9-12.4 N NEUTROPHIL % (test code = NT%) 54.3 % 42.2-75.2 N LYMPHOCYTE % (test code = LY%) 30.0 % 20.5-51.1 N MONOCYTE % (test code = MO%) 11.3 % 1.7-9.3 H EOSINOPHIL % (test code = EO%) 3.4 % 0.0-7.0 N BASOPHIL % (test code = BA%) 0.7 % 0-2.5 N NEUTROPHIL # (test code = NT#) 3.68 x10 3/uL 1.80-7.70 N LYMPHOCYTE # (test code = LY#) 2.04 x10 3/uL 1.00-4.80 N MONOCYTE # (test code = MO#) 0.77 x10 3/uL 0.00-0.80 N EOSINOPHIL # (test code = EO#) 0.23 x10 3/uL 0.00-0.45 N BASOPHIL # (test code = BA#) 0.05 x10 3/uL 0.0-0.20 N THROMBOPLASTIN TIME [id number] 05:01:00* Test Item Value Reference Range Interpretation Comme nts THROMBOPLASTIN TIME PARTIAL (test code = PTT) 121.4 secs 23.8-34.8 HH Critical Value reported toFirst Name:GYPSY Last Name:COLTON READ BACK AND VERIFIEDby [id number], on 08/15/23, @ 0501.INTERPRETATIVE DATA: Therapeutic range: Unfractionated Heparin: 60-90 seconds Argatroban: 60-90 seconds THROMBOPLASTIN TIME [id number] 20:36:00* Test Item Value Reference Range Interpretation Comme nts THROMBOPLASTIN TIME PARTIAL (test code = PTT) 56.6 secs 23.8-34.8 H INTERPRETATIVE D ARMANI: Therapeutic range: Unfractionated Heparin: 60-90 seconds Argatroban: 60-90 seconds THROMBOPLASTIN TIME [id number] 13:47:00* Test Item Value Reference Range Interpretation Comme nts THROMBOPLASTIN TIME PARTIAL (test code = PTT) 71.2 secs 23.8-34.8 H INTERPRETATIVE D ARMANI: Therapeutic range: Unfractionated Heparin: 60-90 seconds Argatroban: 60-90 seconds THROMBOPLASTIN TIME [id number] 06:31:00* Test Item Value Reference Range Interpretation Comme nts THROMBOPLASTIN TIME PARTIAL (test code = PTT) 112.8 secs 23.8-34.8 HH Critical Value reported Davidt Name:CHARLIE Last Name:RESULTS READ BACK AND VERIFIEDby [id number], on 08/14/23, @ 2016.INTERPRETATIVE DATA: Therapeutic range: Unfractionated Heparin: 60-90 seconds Argatroban: 60-90 seconds COMPREHENSIVE METABOLIC [id number] 04:53:00* Test Item Value Reference Range Interpretation Comme nts SODIUM (test code = NA) 135 mmol/L 136-145 L POTASSIUM (test code = K) 3.9 mmol/L 3.5-5.1 CHLORIDE (test code = CL) 104 mmol/l 98-107 N CARBON DIOXIDE (test code = CO2) 22 mmol/L 20-31 N GLUCOSE (test code = GLU) 105 mg/dL 74-106 N BLOOD UREA NITROGEN (test code = BUN) 19 mg/dL 9-23 N GLOMERULAR FILTRATION RATE (test code = GFR) >=60 max estimate mL/min >60 The Glomerular Filtration Rate is a calculated parameterbased on serum Creatinine, patient age and sex. GFR valuesless than 60 mL/min/1.73 square meters are indicative ofChronic Kidney Disease. Values less than 15 mL/min/1.73square meters indicate Kidney failure. The calculation forGFR is based on the CKD-EPI (2020) calculation. This formulais race indifferent and is the recommended formula for GFRby the National Kidney Foundation for Adults.The GFR will not calculate if the sex is unknown or if thepatient's age is <18 years. CREATININE (test code = CREAT) 0.80 mg/dL 0.55-1.02 N TOTAL PROTEIN (test code = PROT) 7.3 g/dL 5.7-8.2 N ALBUMIN (test code = ALB) 4.4 g/dL 3.2-4.8 N CALCIUM (test code = CA) 8.7 mg/dL 8.7-10.4 N BILIRUBIN TOTAL (test code = BILT) 1.2 mg/dL 0.3-1.2 N SGOT/AST (test code = AST) 37 U/L <34 H SGPT/ALT (test code = ALT) 23 U/L 10-49 N ALKALINE PHOSPHATASE (test code = ALKP) 101.0 U/L 46-116 N CBC W/AUTO [id number] 04:33:00* Test Item Value Reference Range Interpretation Comme nts WHITE BLOOD CELL (test code = WBC) 6.1 x10 3/uL 4.8-10.8 N RED BLOOD CELL (test code = RBC) 3.71 x10 6/uL 4.20-5.40 L HEMOGLOBIN (test code = HGB) 11.1 g/dL 12.0-16.0 L HEMATOCRIT (test code = HCT) 34.0 % 37.0-47.0 L MEAN CELL VOLUME (test code = MCV) 91.6 fL 81.0-99.0 N MEAN CELL HGB (test code = MCH) 29.9 pg 27-31 N MEAN CELL HGB CONCENTRATION (test code = MCHC) 32.6 G/DL 33-36.5 L RED CELL DISTRIBUTION WIDTH (test code = RDW) 14.2 % 12.9-16.9 N PLATELET COUNT (test code = PLT) 245 x10 3/uL 150-440 N MEAN PLATELET VOLUME (test c ode = MPV) 9.6 fL 8.9-12.4 N NEUTROPHIL % (test code = NT%) 50.5 % 42.2-75.2 N LYMPHOCYTE % (test code = LY%) 31.6 % 20.5-51.1 N MONOCYTE % (test code = MO%) 12.9 % 1.7-9.3 H EOSINOPHIL % (test code = EO%) 4.0 % 0.0-7.0 N BASOPHIL % (test code = BA%) 0.7 % 0-2.5 N NEUTROPHIL # (test code = NT#) 3.07 x10 3/uL 1.80-7.70 N LYMPHOCYTE # (test code = LY#) 1.92 x10 3/uL 1.00-4.80 N MONOCYTE # (test code = MO#) 0.78 x10 3/uL 0.00-0.80 N EOSINOPHIL # (test code = EO#) 0.24 x10 3/uL 0.00-0.45 N BASOPHIL # (test code = BA#) 0.04 x10 3/uL 0.0-0.20 N THROMBOPLASTIN TIME [id number] 10:39:00* Test Item Value Reference Range Interpretation Comme nts THROMBOPLASTIN TIME PARTIAL (test code = PTT) 75.0 secs 23.8-34.8 H INTERPRETATIVE D ARMANI: Therapeutic range: Unfractionated Heparin: 60-90 seconds Argatroban: 60-90 seconds COMPREHENSIVE METABOLIC [id number] 10:32:00* Test Item Value Reference Range Interpretation Comme nts SODIUM (test code = NA) 136 mmol/L 136-145 N POTASSIUM (test code = K) 2.9 mmol/L 3.5-5.1 L CHLORIDE (test code = CL) 100 mmol/l 98-107 N CARBON DIOXIDE (test code = CO2) 24 mmol/L 20-31 N GLUCOSE (test code = GLU) 114 mg/dL 74-106 H BLOOD UREA NITROGEN (test code = BUN) 16 mg/dL 9-23 N GLOMERULAR FILTRATION RATE (test code = GFR) >=60 max estimate mL/min >60 The Glomerular Filtration Rate is a calculated parameterbased on serum Creatinine, patient age and sex. GFR valuesless than 60 mL/min/1.73 square meters are indicative ofChronic Kidney Disease. Values less than 15 mL/min/1.73square meters indicate Kidney failure. The calculation forGFR is based on the CKD-EPI (2020) calculation. This formulais race indifferent and is the recommended formula for GFRby the National Kidney Foundation for Adults.The GFR will not calculate if the sex is unknown or if thepatient's age is <18 years. CREATININE (test code = CREAT) 0.70 mg/dL 0.55-1.02 N TOTAL PROTEIN (test code = PROT) 7.6 g/dL 5.7-8.2 N ALBUMIN (test code = ALB) 4.6 g/dL 3.2-4.8 N CALCIUM (test code = CA) 8.8 mg/dL 8.7-10.4 N BILIRUBIN TOTAL (test code = BILT) 1.4 mg/dL 0.3-1.2 H SGOT/AST (test code = AST) 21 U/L <34 N SGPT/ALT (test code = ALT) 12 U/L 10-49 N ALKALINE PHOSPHATASE (test code = ALKP) 88.0 U/L 46-116 N CBC W/AUTO [id number] 10:17:00* Test Item Value Reference Range Interpretation Comme nts WHITE BLOOD CELL (test code = WBC) 8.9 x10 3/uL 4.8-10.8 N RED BLOOD CELL (test code = RBC) 3.70 x10 6/uL 4.20-5.40 L HEMOGLOBIN (test code = HGB) 11.0 g/dL 12.0-16.0 L HEMATOCRIT (test code = HCT) 33.8 % 37.0-47.0 L MEAN CELL VOLUME (test code = MCV) 91.4 fL 81.0-99.0 N MEAN CELL HGB (test code = MCH) 29.7 pg 27-31 N MEAN CELL HGB CONCENTRATION (test code = MCHC) 32.5 G/DL 33-36.5 L RED CELL DISTRIBUTION WIDTH (test code = RDW) 14.3 % 12.9-16.9 N PLATELET COUNT (test code = PLT) 234 x10 3/uL 150-440 N MEAN PLATELET VOLUME (test c ode = MPV) 9.4 fL 8.9-12.4 N NEUTROPHIL % (test code = NT%) 73.3 % 42.2-75.2 N LYMPHOCYTE % (test code = LY%) 14.3 % 20.5-51.1 L MONOCYTE % (test code = MO%) 10.7 % 1.7-9.3 H EOSINOPHIL % (test code = EO%) 0.7 % 0.0-7.0 N BASOPHIL % (test code = BA%) 0.7 % 0-2.5 N NEUTROPHIL # (test code = NT#) 6.50 x10 3/uL 1.80-7.70 N LYMPHOCYTE # (test code = LY#) 1.27 x10 3/uL 1.00-4.80 N MONOCYTE # (test code = MO#) 0.95 x10 3/uL 0.00-0.80 H EOSINOPHIL # (test code = EO#) 0.06 x10 3/uL 0.00-0.45 N BASOPHIL # (test code = BA#) 0.06 x10 3/uL 0.0-0.20 N THROMBOPLASTIN TIME [id number] 23:18:00* Test Item Value Reference Range Interpretation Comme nts THROMBOPLASTIN TIME PARTIAL (test code = PTT) 73.0 secs 23.8-34.8 H INTERPRETATIVE D ARMANI: Therapeutic range: Unfractionated Heparin: 60-90 seconds Argatroban: 60-90 seconds THROMBOPLASTIN TIME [id number] 19:32:00* Test Item Value Reference Range Interpretation Comme nts THROMBOPLASTIN TIME PARTIAL (test code = PTT) 81.7 secs 23.8-34.8 H INTERPRETATIVE D ARMANI: Therapeutic range: Unfractionated Heparin: 60-90 seconds Argatroban: 60-90 seconds Spec Comments: USE LABS ALREADY SENT AROUND 1400PLT RESPONSE TO [id number] 18:17:00* Test Item Value Reference Range Interpretation Comme nts PLT RESPONSE TO PLAVIX (test code = PLAVRES) 144 PRU See_Comment Test results are reported in P2Y12 Reaction Units (PRU) PRU reference range is 194-418 PRU. Values <194 PRU arespecific evidence of a P2Y12 inhibitor effect. PRU Results Interpretation: Normal individuals not taking P2Y12 (pre-drug) 182-335 PRU Evidence of P2Y12 receptor blockade <182 PRU Appropriate response to anti-platelet therapyfor cardiology patients <208 PRU Test results are in P2Y12 Reaction Units (PRU) whichindicate the amount of ADP-mediated aggregation specific tothe platelet P2Y12 receptor and is used to measure theeffects of anti-platelet drugs to this receptor, such asclopidogrel (Plavix). The reference range for individualsNOT receiving a P2Y12 inhibitor is 182-335 PRU. PRU levelsless than 182 are indicative of an anti-platelet effect dueto P2Y12 receptor blockade, Literature suggests that a PRUvalue less than 208 is an appropriate response toanti-platlelet therapy for cardiology patients (Refernce: Ren et al Circulation 2011:154:6864-0203). Optimaltherapeutic and pre-surgical PRU targets have not beenestablished.Test results are reported in P2Y12 Reaction Units (PRU) PRU reference range is 194-418 PRU. Values <194 PRU arespecific evidence of a P2Y12 inhibitor effect. [Automated message] The system which generated this result transmitted reference range: (). The reference range was not used to interpret this result as normal/abnormal. PLT RESPONSE TO [id number] 18:16:00* Test Item Value Reference Range Interpretation Comme nts PLT RESPONSE TO PLAVIX (test code = PLAVRDARCY) 144 PRU PRU Results Inte rpretation: Normal individuals not taking P2Y12 (pre-drug) 182-335 PRU Evidence of P2Y12 receptor blockade <182 PRU Appropriate response to anti-platelet therapyfor cardiology patients <208 PRU Test results are in P2Y12 Reaction Units (PRU) whichindicate the amount of ADP-mediated aggregation specific tothe platelet P2Y12 receptor and is used to measure theeffects of anti-platelet drugs to this receptor, such asclopidogrel (Plavix). The reference range for individualsNOT receiving a P2Y12 inhibitor is 182-335 PRU. PRU levelsless than 182 are indicative of an anti-platelet effect dueto P2Y12 receptor blockade, Literature suggests that a PRUvalue less than 208 is an appropriate response toanti-platlelet therapy for cardiology patients (Refernce: Ren et al Circulation 2011:154:0311-6049). Optimaltherapeutic and pre-surgical PRU targets have not beenestablished. Novel Coronavirus 13:50:00* Test Item Value Reference Range Interpretation Comme nts Novel Coronavirus 2019 Inhouse (test code = [id number]) Negative Negative Positive resul ts are indicative of the presence iqEOCW-MmY-1 RNA, clinical correlation with patient historyand other diagnostic information is necessary to determinepatient infection status. Positive results do not rule outbacterial infection or co-infection with other viruses. Negative results do not preclude SARS-CoV-2 infection andshould not be used as the sole basis for patient managementdecisions. Negative results must be combined with otherclinical observations, patient history, and epidemiologicalinformation . Detection of SARS-CoV-2 RNA may be affected bysample collection methods, storage conditions, and/or stageof infection. Viral RNA mutations, vaccinations, antiviraltherapeutics, antibiotics, chemotherapeutic orimmunosuppressant drugs have not been evaluated for effectson detection. Results are for the identification of SARS-CoV-2 RNA usingreal-time (RT) polymerase chain reaction (PCR) technologyfor the qualitative detection of nucleic acids from pooRXFX-VkQ-2 virus and diagnosis of SARS-CoV-2 virusinfection. It is an Emergency Use Authorization (EUA) testauthorized by the U.S. FDA. BASIC METABOLIC [id number] 07:11:00* Test Item Value Reference Range Interpretation Comme nts SODIUM (test code = NA) 137 mmol/L 136-145 N POTASSIUM (test code = K) 3.5 mmol/L 3.5-5.1 N CHLORIDE (test code = CL) 104 mmol/l 98-107 N CARBON DIOXIDE (test code = CO2) 24 mmol/L 20-31 N GLUCOSE (test code = GLU) 109 mg/dL 74-106 H BLOOD UREA NITROGEN (test code = BUN) 16 mg/dL 9-23 N GLOMERULAR FILTRATION RATE (test code = GFR) >=60 max estimate mL/min >60 The Glomerular Filtration Rate is a calculated parameterbased on serum Creatinine, patient age and sex. GFR valuesless than 60 mL/min/1.73 square meters are indicative ofChronic Kidney Disease. Values less than 15 mL/min/1.73square meters indicate Kidney failure. The calculation forGFR is based on the CKD-EPI (2020) calculation. This formulais race indifferent and is the recommended formula for GFRby the National Kidney Foundation for Adults.The GFR will not calculate if the sex is unknown or if thepatient's age is <18 years. CREATININE (test code = CREAT) 0.90 mg/dL 0.55-1.02 N CALCIUM (test code = CA) 7.9 mg/dL 8.7-10.4 L [id number] 07:11:00* Test Item Value Reference Range Interpretation Comme nts PHOSPHOROUS (test code = PHOS) 3.4 mg/dL 2.4-5.1 N [id number] 07:11:00* Test Item Value Reference Range Interpretation Comme nts MAGNESIUM (test code = MAG) 1.5 mg/dL 1.6-2.6 L THROMBOPLASTIN TIME [id number] 06:30:00* Test Item Value Reference Range Interpretation Comme nts THROMBOPLASTIN TIME PARTIAL (test code = PTT) 50.7 secs 23.8-34.8 H INTERPRETATIVE D ARMANI: Therapeutic range: Unfractionated Heparin: 60-90 seconds Argatroban: 60-90 seconds CBC W/AUTO [id number] 06:20:00* Test Item Value Reference Range Interpretation Comme nts WHITE BLOOD CELL (test code = WBC) 7.6 x10 3/uL 4.8-10.8 N RED BLOOD CELL (test code = RBC) 3.58 x10 6/uL 4.20-5.40 L HEMOGLOBIN (test code = HGB) 10.6 g/dL 12.0-16.0 L HEMATOCRIT (test code = HCT) 33.2 % 37.0-47.0 L MEAN CELL VOLUME (test code = MCV) 92.7 fL 81.0-99.0 N MEAN CELL HGB (test code = MCH) 29.6 pg 27-31 N MEAN CELL HGB CONCENTRATION (test code = MCHC) 31.9 G/DL 33-36.5 L RED CELL DISTRIBUTION WIDTH (test code = RDW) 14.6 % 12.9-16.9 N PLATELET COUNT (test code = PLT) 235 x10 3/uL 150-440 N MEAN PLATELET VOLUME (test c ode = MPV) 9.3 fL 8.9-12.4 N NEUTROPHIL % (test code = NT%) 57.1 % 42.2-75.2 N LYMPHOCYTE % (test code = LY%) 27.7 % 20.5-51.1 N MONOCYTE % (test code = MO%) 12.2 % 1.7-9.3 H EOSINOPHIL % (test code = EO%) 2.0 % 0.0-7.0 N BASOPHIL % (test code = BA%) 0.9 % 0-2.5 N NEUTROPHIL # (test code = NT#) 4.36 x10 3/uL 1.80-7.70 N LYMPHOCYTE # (test code = LY#) 2.11 x10 3/uL 1.00-4.80 N MONOCYTE # (test code = MO#) 0.93 x10 3/uL 0.00-0.80 H EOSINOPHIL # (test code = EO#) 0.15 x10 3/uL 0.00-0.45 N BASOPHIL # (test code = BA#) 0.07 x10 3/uL 0.0-0.20 N [id number] 03:18:00* Test Item Value Reference Range Interpretation Comme nts TROPONIN-I (test code = TROPI) 146.4 pg/mL 27.36-66.23 HH Critical Value r eported toFirst Name:MUNIRA May Name:ERINRESULTS READ BACK AND VERIFIEDby [id number], on 08/11/23, @ 0318. COMPREHENSIVE METABOLIC [id number] 03:13:00* Test Item Value Reference Range Interpretation Comme nts SODIUM (test code = NA) 140 mmol/L 136-145 N POTASSIUM (test code = K) 3.9 mmol/L 3.5-5.1 N CHLORIDE (test code = CL) 108 mmol/l 98-107 H CARBON DIOXIDE (test code = CO2) 21 mmol/L 20-31 N GLUCOSE (test code = GLU) 112 mg/dL 74-106 H BLOOD UREA NITROGEN (test code = BUN) 23 mg/dL 9-23 N GLOMERULAR FILTRATION RATE (test code = GFR) 55 mL/min >60 L The Glomerular Filtration Rate is a calculated parameterbased on serum Creatinine, patient age and sex. GFR valuesless than 60 mL/min/1.73 square meters are indicative ofChronic Kidney Disease. Values less than 15 mL/min/1.73square meters indicate Kidney failure. The calculation forGFR is based on the CKD-EPI (202) calculation. This formulais race indifferent and is the recommended formula for GFRby the National Kidney Foundation for Adults.The GFR will not calculate if the sex is unknown or if thepatient's age is <18 years. CREATININE (test code = CREAT) 1.00 mg/dL 0.55-1.02 N TOTAL PROTEIN (test code = PROT) 6.1 g/dL 5.7-8.2 N ALBUMIN (test code = ALB) 3.9 g/dL 3.2-4.8 N CALCIUM (test code = CA) 8.0 mg/dL 8.7-10.4 L BILIRUBIN TOTAL (test code = BILT) 1.0 mg/dL 0.3-1.2 N SGOT/AST (test code = AST) 18 U/L <34 N SGPT/ALT (test code = ALT) < 7 U/L 10-49 L ALKALINE PHOSPHATASE (test code = ALKP) 81.0 U/L 46-116 N [id number] 03:13:00* Test Item Value Reference Range Interpretation Comme nts PHOSPHOROUS (test code = PHOS) 3.2 mg/dL 2.4-5.1 N [id number] 03:13:00* Test Item Value Reference Range Interpretation Comme nts MAGNESIUM (test code = MAG) 1.9 mg/dL 1.6-2.6 N PROTHROMBIN [id number] 03:07:00* Test Item Value Reference Range Interpretation Comme nts PROTHROMBIN TIME PATIENT (test code = PTP) 11.4 SECONDS 10.3-12.9 N INTERNATIONAL NORMAL RATIO (test code = INR) 1.02 0.9-1.11 N INR goals are individualized based on patient specificfactors. The following are only general guidelines: Indications: INR Goal:1. Treatment of venous thromboembolism and 2.0 - 3.0 systemic anticoagulation in a variety of conditions, including atrial fibrillation and mechanical heart valves 2. Mechanical mitral and tricuspid valves, 2.5 - 3.5 systemic anticoagulation for high-risk conditions THROMBOPLASTIN TIME [id number] 03:07:00* Test Item Value Reference Range Interpretation Comme [facility] THROMBOPLASTIN TIME PARTIAL (test code = PTT) 79.2 secs 23.8-34.8 H INTERPRETATIVE D ARMANI: Therapeutic range: Unfractionated Heparin: 60-90 seconds Argatroban: 60-90 seconds CBC W/AUTO [id number] 02:51:00* Test Item Value Reference Range Interpretation Comme nts WHITE BLOOD CELL (test code = WBC) 7.0 x10 3/uL 4.8-10.8 N RED BLOOD CELL (test code = RBC) 3.53 x10 6/uL 4.20-5.40 L HEMOGLOBIN (test code = HGB) 10.4 g/dL 12.0-16.0 L HEMATOCRIT (test code = HCT) 32.8 % 37.0-47.0 L MEAN CELL VOLUME (test code = MCV) 92.9 fL 81.0-99.0 N MEAN CELL HGB (test code = MCH) 29.5 pg 27-31 N MEAN CELL HGB CONCENTRATION (test code = MCHC) 31.7 G/DL 33-36.5 L RED CELL DISTRIBUTION WIDTH (test code = RDW) 14.8 % 12.9-16.9 N PLATELET COUNT (test code = PLT) 235 x10 3/uL 150-440 N MEAN PLATELET VOLUME (test c ode = MPV) 9.0 fL 8.9-12.4 N NEUTROPHIL % (test code = NT%) 57.5 % 42.2-75.2 N LYMPHOCYTE % (test code = LY%) 27.7 % 20.5-51.1 N MONOCYTE % (test code = MO%) 9.5 % 1.7-9.3 H EOSINOPHIL % (test code = EO%) 4.2 % 0.0-7.0 N BASOPHIL % (test code = BA%) 0.7 % 0-2.5 N NEUTROPHIL # (test code = NT#) 4.00 x10 3/uL 1.80-7.70 N LYMPHOCYTE # (test code = LY#) 1.93 x10 3/uL 1.00-4.80 N MONOCYTE # (test code = MO#) 0.66 x10 3/uL 0.00-0.80 N EOSINOPHIL # (test code = EO#) 0.29 x10 3/uL 0.00-0.45 N BASOPHIL # (test code = BA#) 0.05 x10 3/uL 0.0-0.20 N [id number] 16:32:00* Test Item Value Reference Range Interpretation Comme nts TROPONIN-I (test code = TROPI) 225.2 pg/mL 27.36-66.23 HH Critical Value r eported toFirst Name:FRANKY [facility] Name:SATURNINO READ BACK AND VERIFIEDby [facility], on 08/10/23, @ 1632. [id number] 08:25:00* Test Item Value Reference Range Interpretation Comme nts GLUBED (test code = GLUBED) 100 MG/DL 70-105 N COVID 19 Asymptomatic IH [id number] 04:36:00* Test Item Value Reference Range Interpretation Comme nts COVID 19 Asymptomatic IH AG (test code = COVNONPUIAG) NEGATIVE NEGATIVE Negative results , from patients with symptom onset beyondfive days, should be treated as presumptive and confirmationwith a molecular assay, if necessary for patientmanagement, may be performed. Negative results do not ruleout COVID-19 and should not be used as the sole basis fortreatment or patient management decisions, includinginfection control decisions. Negative results should beconsidered in the context of a patient's recent exposures,history and the presence of clinical signs and symptomsconsistent with COVID-19. COMPREHENSIVE METABOLIC [id number] 03:50:00* Test Item Value Reference Range Interpretation Comme nts SODIUM (test code = NA) 142 mmol/L 136-145 N POTASSIUM (test code = K) 3.3 mmol/L 3.5-5.1 L CHLORIDE (test code = CL) 107 mmol/l 98-107 N CARBON DIOXIDE (test code = CO2) 27 mmol/L 20-31 N GLUCOSE (test code = GLU) 98 mg/dL 74-106 N BLOOD UREA NITROGEN (test code = BUN) 16 mg/dL 9-23 N GLOMERULAR FILTRATION RATE (test code = GFR) >=60 max estimate mL/min >60 The Glomerular Filtration Rate is a calculated parameterbased on serum Creatinine, patient age and sex. GFR valuesless than 60 mL/min/1.73 square meters are indicative ofChronic Kidney Disease. Values less than 15 mL/min/1.73square meters indicate Kidney failure. The calculation forGFR is based on the CKD-EPI (2020) calculation. This formulais race indifferent and is the recommended formula for GFRby the National Kidney Foundation for Adults.The GFR will not calculate if the sex is unknown or if thepatient's age is <18 years. CREATININE (test code = CREAT) 0.90 mg/dL 0.55-1.02 N TOTAL PROTEIN (test code = PROT) 6.3 g/dL 5.7-8.2 N ALBUMIN (test code = ALB) 3.9 g/dL 3.2-4.8 N CALCIUM (test code = CA) 7.9 mg/dL 8.7-10.4 L BILIRUBIN TOTAL (test code = BILT) 1.3 mg/dL 0.3-1.2 H SGOT/AST (test code = AST) 18 U/L <34 N SGPT/ALT (test code = ALT) < 7 U/L 10-49 L ALKALINE PHOSPHATASE (test code = ALKP) 77.0 U/L 46-116 N [id number] 03:50:00* Test Item Value Reference Range Interpretation Comme nts PHOSPHOROUS (test code = PHOS) 3.2 mg/dL 2.4-5.1 N [id number] 03:50:00* Test Item Value Reference Range Interpretation Comme nts MAGNESIUM (test code = MAG) 2.3 mg/dL 1.6-2.6 N B-TYPE NATRIURETIC [id number] 03:50:00* Test Item Value Reference Range Interpretation Comme nts B-TYPE NATRIURETIC PEPTIDE ( test code = BNP) 679 pg/mL <100 H CBC W/AUTO [id number] 03:33:00* Test Item Value Reference Range Interpretation Comme nts WHITE BLOOD CELL (test code = WBC) 6.0 x10 3/uL 4.8-10.8 N RED BLOOD CELL (test code = RBC) 3.73 x10 6/uL 4.20-5.40 L HEMOGLOBIN (test code = HGB) 10.9 g/dL 12.0-16.0 L HEMATOCRIT (test code = HCT) 33.9 % 37.0-47.0 L MEAN CELL VOLUME (test code = MCV) 90.9 fL 81.0-99.0 N MEAN CELL HGB (test code = MCH) 29.2 pg 27-31 N MEAN CELL HGB CONCENTRATION (test code = MCHC) 32.2 G/DL 33-36.5 L RED CELL DISTRIBUTION WIDTH (test code = RDW) 14.5 % 12.9-16.9 N PLATELET COUNT (test code = PLT) 266 x10 3/uL 150-440 N MEAN PLATELET VOLUME (test c ode = MPV) 9.1 fL 8.9-12.4 N NEUTROPHIL % (test code = NT%) 52.3 % 42.2-75.2 N LYMPHOCYTE % (test code = LY%) 33.7 % 20.5-51.1 N MONOCYTE % (test code = MO%) 9.0 % 1.7-9.3 N EOSINOPHIL % (test code = EO%) 3.5 % 0.0-7.0 N BASOPHIL % (test code = BA%) 1.2 % 0-2.5 N NEUTROPHIL # (test code = NT#) 3.13 x10 3/uL 1.80-7.70 N LYMPHOCYTE # (test code = LY#) 2.02 x10 3/uL 1.00-4.80 N MONOCYTE # (test code = MO#) 0.54 x10 3/uL 0.00-0.80 N EOSINOPHIL # (test code = EO#) 0.21 x10 3/uL 0.00-0.45 N BASOPHIL # (test code = BA#) 0.07 x10 3/uL 0.0-0.20 N PROTHROMBIN [id number] 03:33:00* Test Item Value Reference Range Interpretation Comme nts PROTHROMBIN TIME PATIENT (test code = PTP) 12.1 SECONDS 10.3-12.9 N INTERNATIONAL NORMAL RATIO (test code = INR) 1.08 0.9-1.11 N INR goals are individualized based on patient specificfactors. The following are only general guidelines: Indications: INR Goal:1. Treatment of venous thromboembolism and 2.0 - 3.0 systemic anticoagulation in a variety of conditions, including atrial fibrillation and mechanical heart valves 2. Mechanical mitral and tricuspid valves, 2.5 - 3.5 systemic anticoagulation for high-risk conditions THROMBOPLASTIN TIME [id number] 03:33:00* Test Item Value Reference Range Interpretation Comme nts THROMBOPLASTIN TIME PARTIAL (test code = PTT) 90.8 secs 23.8-34.8 H INTERPRETATIVE D ARMANI: Therapeutic range: Unfractionated Heparin: 60-90 seconds Argatroban: 60-90 seconds - CT CHEST W/O [id number] 22:41:00 [facility] 1935 Sex: FPatient Name: ROCK GOMEZ Unit No: [id number] EXAMS: CPT CODE: [id number] CT CHEST W/O [id number] EXAM: - CT CHEST W/O CONTRAST LOCATION: C3 HISTORY: Pre-op for CABG COMPARISON: None available at the time of interpretation. TECHNIQUE: Axial tomograms through the chest were obtained without intravenous contrast. Coronal and sagittal reformatted images are provided. Unless otherwise specified, incidental findings do not require dedicated imaging follow-up. This exam was performed according to our departmental dose-optimization program, which includes automated exposure control, adjustment of the mA and/or kV according to patient size and/or use of iterative reconstruction technique. FINDINGS: LUNGS/PLEURA: Platelike atelectasis identified in the lower lobes. Focal tree-in-bud opacities identified in the right upper lobe. Small right pleural effusion noted. MEDIASTINUM: There is nopericardial effusion. Coronary and aortic calcifications are noted. The trachea is unremarkable. The esophagus is grossly unremarkable. LYMPHADENOPATHY: There is no mediastinal, hilar, or axillary adenopathy. VISUALIZED ABDOMEN: Unremarkable. BONES: Chronic compression deformities of T5, T6, T10, T11, T12 with greatest loss of height at T12 at approximately 80% centrally. SOFT TISSUES: Unremarkable. IMPRESSION: Minimal focal endobronchial pneumonia in the right upper lobe. Small right pleuraleffusion. Platelike atelectasis in the lower lobes. Chronic compression deformities of the spine asabove. Name: ROCK GOMEZ [facility] Phys: Funmilayo Rivera [address] : 1935 Age: 88 Sex: [place] [address] Loc: P.0318 1 Exam Date: 08/09/2023 Status: ADM IN PH: FAX: PAGE 1 Signed Report (CONTINUED) Patient Name: ROCK GOMEZ Unit No: [id number] EXAMS: CPT CODE: [id number] CT CHEST W/O CONTRAST 94968 (Continued) at 2241 Reported and signed by: TOMAS HERNANDEZ M.D. CC: Funmilayo GARCIA; Marianne Mckay MD Technologist: Palmer Dennis; Fatemeh Davenport; Nargis Avila CTDI: 4.04 DLP: 153 Trscr Dt/Tm: 08/09/2023 (2241) by:[email or web address] Printed Date/Time: 08/09/2023 (6616) Name: GOMEZROCK [facility] Phys: Funmilayo Rivera [address] : 1935 Age: 88 Sex: [place] [address] Loc: P.0318 1 Exam Date: 08/09/2023 Status: ADM IN PH: FAX: PAGE 2 Signed [id number] 21:47:00* Test Item Value Reference Range Interpretation Comme nts GLUBED (test code = GLUBED) 103 MG/DL 70-105 N [id number] 21:31:00* Test Item Value Reference Range Interpretation Comme nts TROPONIN-I (test code = TROPI) 524.6 pg/mL 27.36-66.23 HH Critical Value r eported toFirst Name:MUNIRA Last Name:RELLMIRELLARESULTS READ BACK AND VERIFIEDby [id number], on 08/09/23, @ 2131. Spec Comments: Trend until peakedTHROMBOPLASTIN TIME [id number] 17:54:00 * Test Item Value Reference Range Interpretation Comme nts THROMBOPLASTIN TIME PARTIAL (test code = PTT) 71.0 secs 23.8-34.8 H INTERPRETATIVE D ARMANI: Therapeutic range: Unfractionated Heparin: 60-90 seconds Argatroban: 60-90 seconds Spec Comments: [id number] 15:13:00* Test Item Value Reference Range Interpretation Comme nts TROPONIN-I (test code = TROPI) 531.5 pg/mL 27.36-66.23 HH Critical Value r eported toFirst Name:RAUL Last Name:CHINKYRESULTS READ BACK AND VERIFIEDby [id number], on 08/09/23, @ 1513. HGBA1C - GLYCOSYLATED [id number] 15:03:00* Test Item Value Reference Range Interpretation Comme nts GLYCOSYLATED HEMOGLOBIN (HA1C) (test code = GLYHGB) 5.0 % <5.7 N Diabetic >/= 6.5%Prediabetes 5.7-6.4%Normal < 5.7% - XR CHEST 1 [id number] 09:15:00 [facility] : 1935 Sex: FPatient Name: ROCK GOMEZ Unit No: [id number] EXAMS: CPT CODE: [id number] XR CHEST 1 V 70070 EXAM: Chest one view. Location: A1 HISTORY: Pulmonary edema COMPARISON: None available. FINDINGS: Airspace opacities are present at bilateral lung bases. Cardiac silhouette is mildly enlarged. There is tortuosity of the thoracic aorta. There is prominence of interstitial markings. The thoracic aorta is elongated with returns chronic changes the knob. Visualized skeletal structures are within normal limits. IMPRESSION: 1. Interstitial and basilar airspace edema/infiltrates. 2. Cardiomegaly. at 0915 Reported and signed by: VIV DOWNING M.D. CC: Herve Hernandes MD Technologist: Rebecca Jaramillo RT (R) Fluoro Time: DAP (Gy m2): Air Kerma (mGy): Trscr Dt/Tm: 08/09/2023 (0915) by:[email or web address] Printed Date/Time: 08/09/2023 (0918) Name: ROCK GOMEZ [facility] Phys: Herve Uribe MD [address] : 1935 Age: 88 Sex: [place] [address] Loc: P.ERIM 10 Exam Date: 08/09/2023 Status: ADM IN PH: FAX: PAGE 1 Signed [id number] 08:54:00* Test Item Value Reference Range Interpretation Comme nts TROPONIN-I (test code = TROPI) 534.3 pg/mL 27.36-66.23 HH Critical Value r eported toFirst Name:BERNA Last Name:NAGA READ BACK AND VERIFIEDby POOJA, on 08/09/23, @ 0854. LIPID PROFILE (CORONARY RISK)2023-08-09 08:50:00* Test Item Value Reference Range Interpretation Comme nts TRIGLYCERIDES (test code = TRIG) 121 mg/dL <150 N CHOLESTEROL (test code = CHOL) 226 mg/dL <200 H HDL CHOLESTEROL (test code = HDL) 90 mg/dL >60 N Please note New Reference Interval Feb 2023 REFERENCE INTERVALLow (undesirable, high risk): < 40 mg/dLHigh (desirable, low risk): >/= 60 mg/dL LIPOPROTEIN LDL (test code = LDLC) 139 mg/dL <100 H INTERPRETATIVE DATA:LDL Cholesterol: Reference RangesOptimal: <100 mg/dLNear Optimal: 100 -129 mg/dLBorderline High: 130 - 159 mg/dLHigh: 160 - 189 mg/dLVery High: = or > 190 mg/dL CORONARY RISK FACTOR (test code = RISK) 2.51 CHOL/HDL RISK MALE: 1/2 AVG 3.43 FEMALE: 1/2 AVG 3.27 AVG 4.97 AVG 4.44 2X AVG 9.55 2X AVG 7.05 3X AVG 23.39 3X AVG 11.04~~~~~~~~~~~~~~~~~ ~~~~~~~~~~~~~~~~~~~~~~ ~~~~~~~~~~~~~~~~~~~~~N ational Cholesterol Education (NCEP) Guidelines:~~~~~~~~~~~ ~~~~~~~~~~~~~~~~~~~~~~ ~~~~~~~~~~~~~~~~~~~~~~ ~~~~~ HDL Cholesterol<40mg/dL: HDL Cholesterol (Major risk factor for CHD)>60mg/dL: HDL Cholesterol (Negative risk factor for CHD)40-59mg/dL: Borderline Risk LDL Cholesterol<100mg/dL : Desirable LDL-C ytvmxwysrnudo598-998tn /dL: Borderline High Risk LDL-C bwxhlbwsadlcx848-613oc /dL: High risk LDL-C concentration HDL-LDL Cholesterol is affected by a number of factors suchas smoking, age and sex.~~~~~~~~~~~~~~~~~~ ~~~~~~~~~~~~~~~~~~~~~~ ~~~~~~~~~~~~~~~~~~~~ [id number] 08:50:00* Test Item Value Reference Range Interpretation Comme nts MAGNESIUM (test code = MAG) 1.3 mg/dL 1.6-2.6 L B-TYPE NATRIURETIC [id number] 08:50:00* Test Item Value Reference Range Interpretation Comme nts B-TYPE NATRIURETIC PEPTIDE ( test code = BNP) 539 pg/mL <100 H BASIC METABOLIC [id number] 08:50:00* Test Item Value Reference Range Interpretation Comme nts SODIUM (test code = NA) 143 mmol/L 136-145 N POTASSIUM (test code = K) 3.8 mmol/L 3.5-5.1 N CHLORIDE (test code = CL) 109 mmol/l 98-107 H CARBON DIOXIDE (test code = CO2) 26 mmol/L 20-31 N GLUCOSE (test code = GLU) 92 mg/dL 74-106 N BLOOD UREA NITROGEN (test code = BUN) 15 mg/dL 9-23 N GLOMERULAR FILTRATION RATE (test code = GFR) >=60 max estimate mL/min >60 The Glomerular Filtration Rate is a calculated parameterbased on serum Creatinine, patient age and sex. GFR valuesless than 60 mL/min/1.73 square meters are indicative ofChronic Kidney Disease. Values less than 15 mL/min/1.73square meters indicate Kidney failure. The calculation forGFR is based on the CKD-EPI (2020) calculation. This formulais race indifferent and is the recommended formula for GFRby the National Kidney Foundation for Adults.The GFR will not calculate if the sex is unknown or if thepatient's age is <18 years. CREATININE (test code = CREAT) 0.80 mg/dL 0.55-1.02 N CALCIUM (test code = CA) 8.4 mg/dL 8.7-10.4 L PROTHROMBIN [id number] 08:42:00* Test Item Value Reference Range Interpretation Comme nts PROTHROMBIN TIME PATIENT (test code = PTP) 11.9 SECONDS 10.3-12.9 N INTERNATIONAL NORMAL RATIO (test code = INR) 1.06 0.9-1.11 N INR goals are individualized based on patient specificfactors. The following are only general guidelines: Indications: INR Goal:1. Treatment of venous thromboembolism and 2.0 - 3.0 systemic anticoagulation in a variety of conditions, including atrial fibrillation and mechanical heart valves 2. Mechanical mitral and tricuspid valves, 2.5 - 3.5 systemic anticoagulation for high-risk conditions THROMBOPLASTIN TIME [id number] 08:42:00* Test Item Value Reference Range Interpretation Comme nts THROMBOPLASTIN TIME PARTIAL (test code = PTT) 77.7 secs 23.8-34.8 H INTERPRETATIVE D ARMANI: Therapeutic range: Unfractionated Heparin: 60-90 seconds Argatroban: 60-90 seconds CBC W/AUTO [id number] 08:38:00* Test Item Value Reference Range Interpretation Comme nts WHITE BLOOD CELL (test code = WBC) 8.6 x10 3/uL 4.8-10.8 N RED BLOOD CELL (test code = RBC) 4.14 x10 6/uL 4.20-5.40 L HEMOGLOBIN (test code = HGB) 12.2 g/dL 12.0-16.0 N HEMATOCRIT (test code = HCT) 38.4 % 37.0-47.0 N MEAN CELL VOLUME (test code = MCV) 92.8 fL 81.0-99.0 N MEAN CELL HGB (test code = MCH) 29.5 pg 27-31 N MEAN CELL HGB CONCENTRATION (test code = MCHC) 31.8 G/DL 33-36.5 L RED CELL DISTRIBUTION WIDTH (test code = RDW) 14.7 % 12.9-16.9 N PLATELET COUNT (test code = PLT) 293 x10 3/uL 150-440 N MEAN PLATELET VOLUME (test c ode = MPV) 8.9 fL 8.9-12.4 N NEUTROPHIL % (test code = NT%) 61.1 % 42.2-75.2 N LYMPHOCYTE % (test code = LY%) 28.0 % 20.5-51.1 N MONOCYTE % (test code = MO%) 8.9 % 1.7-9.3 N EOSINOPHIL % (test code = EO%) 1.0 % 0.0-7.0 N BASOPHIL % (test code = BA%) 0.8 % 0-2.5 N NEUTROPHIL # (test code = NT#) 5.24 x10 3/uL 1.80-7.70 N LYMPHOCYTE # (test code = LY#) 2.40 x10 3/uL 1.00-4.80 N MONOCYTE # (test code = MO#) 0.76 x10 3/uL 0.00-0.80 N EOSINOPHIL # (test code = EO#) 0.09 x10 3/uL 0.00-0.45 N BASOPHIL # (test code = BA#) 0.07 x10 3/uL 0.0-0.20 N COMPREHENSIVE METABOLIC [id number] 06:32:00* Test Item Value Reference Range Interpretation Comme nts SODIUM (test code = NA) 140 mmol/L 134-147 N POTASSIUM (test code = K) 3.3 mmol/L 3.4-5.0 L CHLORIDE (test code = CL) 108 mmol/L 100-108 N CARBON DIOXIDE (test code = CO2) 26 mmol/L 21-32 N ANION GAP (test code = GAP) 6.0 GAP calc 4.0-15.0 N GLUCOSE (test code = GLU) 121 MG/DL 70-110 H BLOOD UREA NITROGEN (test code = BUN) 15 MG/DL 7-18 N GLOMERULAR FILTRATION RATE (test code = GFR) >=60 max estimate estGFR >60 The Glomerular Filtration Rate is a calculated parameterbased on serum Creatinine, patient age and sex. GFR valuesless than 60 mL/min/1.73 square meters are indicative ofChronic Kidney Disease. Values less than 15 mL/min/1.73square meters indicate Kidney failure. The calculation forGFR is based on the CKD-EPI (202) calculation. This formulais race indifferent and is the recommended formula for GFRby the National Kidney Foundation for Adults.The GFR will not calculate if the sex is unknown or if thepatient's age is <18 years. CREATININE (test code = CREAT) 0.7 MG/DL 0.6-1.0 N TOTAL PROTEIN (test code = PROT) 7.7 G/DL 6.4-8.2 N ALBUMIN (test code = ALB) 3.8 G/DL 3.4-5.0 N GLOBULIN (test code = GLOB) 3.9 GM/dL ALBUMIN/GLOBULIN RATIO (test code = A/G) 1.0 RATIO 1.2-2.2 L CALCIUM (test code = CA) 9.5 MG/DL 8.5-10.1 N BILIRUBIN TOTAL (test code = BILT) 0.90 MG/DL 0.2-1.2 N SGOT/AST (test code = AST) 19 Unit/L 15-37 N SGPT/ALT (test code = ALT) 17 Unit/L 12-78 N ALKALINE PHOSPHATASE TOTAL (test code = ALKP) 93 Unit/L 45-117 N LIPID PROFILE (CORONARY RISK)2023-07-31 06:32:00* Test Item [...] = LDL) 95 MG/DL 0-129 N <100 [id number] 0 - 129 NEAR OPTIMAL/ABOVE [id number] - 159 [id number] - 189 HIGH>OR= 190 VERY HIGHNOTE THAT GUIDELINES ARE PROVIDED BY NATIONAL CHOLESTEROLEDUCATION PROGRAM ADULT TREATMENT PANEL III LDL/HDL (test code = LDL/HDL) 0.96 Ratio See_Comment L [Automated messa ge] The system which generated this result transmitted reference range: 1.48-3.22 Avg. The reference range was not used to interpret this result as normal/abnormal. [id number] 06:32:00* Test Item Value Reference Range Interpretation Comme nts MAGNESIUM (test code = MAG) 1.7 MG/DL 1.8-2.4 L PROTHROMBIN [id number] 06:15:00* Test Item Value Reference Range Interpretation [...] Infarction (to prevent recurrent infarct). CBC W/AUTO [id number] 06:13:00* Test Item Value Reference Range Interpretation [...] NRBC#) 0.0 K/mm3 0.0-0.1 N CBC WITH [id number] 15:00:57* Test Item Value Reference Range Interpretation Comme nts WBC (test code = 6690-2) 10.99 See_Comment [Automated messa ge] The system which generated this result transmitted reference range: 4.30 - 11.10 10*3/?L. The reference range was not used to interpret this result as normal/abnormal. RBC (test code = 789-8) 3.84 See_Comment L [Automated messa ge] The system [...] 33.7 g/dL 31.6-35.1 RDW-SD (test code = 77274-4) 45.5 fL 39.0-49.9 RDW-CV (test code = 788-0) 14.4 % 12.0-15.5 PLT (test code = 777-3) 311 See_Comment [Automated messa ge] The system which generated this result transmitted reference range: 166 - 358 10*3/?L. The reference range was not used to interpret this result as normal/abnormal. MPV (test code = 63730-0) 9.0 fL 9.5-12.9 L NRBC/100 WBC (test code = 6334761700) 0.0 See_Comment [Automated [employer] ssage] The system which generated this result transmitted reference range: 0.0 - 10.0 /100 WBCs. The reference range was not used to interpret this result as normal/abnormal. NRBC x10^3 (test code = 7278274112) See_Comment [Automated messa ge] The system which generated this result transmitted reference range: 10*3/?L. The reference range was not used to interpret this result as normal/abnormal. GRAN MAT (NEUT) % (test code = 770-8) 57.4 % IMM GRAN % (test code = 3245743365) 5.70 % LYMPH % (test code = 736-9) 29.0 % MONO % (test code = 5905-5) 7.4 % EOS % (test code = 713-8) 0.2 % BASO % (test code = 706-2) 0.3 % GRAN MAT x10^3(ANC) (test code = 6453796029) 6.31 10*3/uL 1.88-7.09 IMM GRAN x10^3 (test code = 0685968871) 0.63 10*3/uL 0.00-0.06 H LYMPH x10^3 (test code = 731-0) 3.19 10*3/uL 1.32-3.29 MONO x10^3 (test code = 742-7) 0.81 10*3/uL 0.33-0.92 EOS x10^3 (test code = 711-2) 0.03-0.39 L BASO x10^3 (test code = 704-7) 0.03 10*3/uL 0.01-0.07 BANDS (test code = 3463762639) Increased A REACT LYMPHS (test code = 4363938217) Rare TOXIC CHANGES (test code = 803-7) Present A Lab Interpretation (test code = 10794-8) Abnormal [facility] METABOLIC PANEL (NA, K, CL, CO2, GLUCOSE, BUN, CREATININE, CA)2022-08-05 12:42:23* Test Item Value Reference Range Interpretation Comme nts NA (test code = 3120053183) 136 mmol/L 135-145 K (test code = 0451069010) 3.3 mmol/L 3.5-5.0 L CL (test code = 1780128689) 103 mmol/L 98-108 CO2 TOTAL (test code = 3401848765) 27 mmol/L 23-31 AGAP (test code = 3350099670) 6 2-16 BUN (test code = 1659723399) 34 mg/dL 7-23 H GLUCOSE (test code = 0023643831) 106 mg/dL 70-110 CREATININE (test code = 7611086681) 0.72 mg/dL 0.50-1.04 CALCIUM (test code = 3713093288) 8.3 mg/dL 8.6-10.6 L eGFR (test code = 1793105624) 76.8 mL/min/1.73m2 CHANO (test code = CHANO) [...] imaging tests). Lab Interpretation (test code = 68861-1) Abnormal [facility] GLUCOSE (AUTOMATED)2022-08-03 22:56:06* Test Item Value Reference Range Interpretation Comme [facility] POCT GLU (test code = 7465461495) 127 mg/dL 70-110 H Lab Interpretation (test cod e = 61845-6) Abnormal [facility] GLUCOSE (AUTOMATED)2022-08-03 14:17:47* Test Item Value Reference Range Interpretation Comme [facility] POCT GLU (test code = 2456306112) 129 mg/dL 70-110 H Lab Interpretation (test cod e = 89806-0) Abnormal [facility] WITH [id number] 19:07:08* Test Item Value Reference Range Interpretation [...] 33.6 g/dL 31.6-35.1 RDW-SD (test code = 10007-1) 45.9 fL 39.0-49.9 RDW-CV (test code = 788-0) 14.2 % 12.0-15.5 PLT (test code = 777-3) 252 See_Comment [Automated message] The system which generated this result transmitted reference range: 166 - 358 10*3/?L. The reference range was not used to interpret this result as normal/abnormal. MPV (test code = 25222-8) 9.0 fL 9.5-12.9 L NRBC/100 WBC (test code = 0679712995) 0.0 See_Comment [Automated message] The system which generated this result transmitted reference range: 0.0 - 10.0 /100 WBCs. The reference range was not used to interpret this result as normal/abnormal. NRBC x10^3 (test code = 0580449018) See_Comment [Automated message] The system which generated this result transmitted reference range: 10*3/?L. The reference range was not used to interpret this result as normal/abnormal. GRAN MAT (NEUT) % (test code = 770-8) 62.0 % IMM GRAN % (test code = 1812572939) 1.40 % LYMPH % (test code = 736-9) 20.7 % MONO % (test code = 5905-5) 13.4 % EOS % (test code = 713-8) 1.7 % BASO % (test code = 706-2) 0.8 % GRAN MAT x10^3(ANC) (test code = 2745549498) 5.67 10*3/uL 1.88-7.09 IMM GRAN x10^3 (test code = 6053677044) 0.13 10*3/uL 0.00-0.06 H LYMPH x10^3 (test code = 731-0) 1.89 10*3/uL 1.32-3.29 MONO x10^3 (test code = 742-7) 1.23 10*3/uL 0.33-0.92 H EOS x10^3 (test code = 711-2) 0.16 10*3/uL 0.03-0.39 BASO x10^3 (test code = 704-7) 0.07 10*3/uL 0.01-0.07 BANDS (test code = 5688880188) MARKED INCREASED A DOHLE BODIES (test code = 7792-5) Present A REACT LYMPHS (test code = 0767522673) Rare TOXIC CHANGES (test code = 803-7) Present A Lab Interpretation (test code = 70644-8) [facility] [id number] 18:36:41* Test Item Value Reference Range Interpretation Comme nts TROPONIN I (test code = 6177164672) 0.020 ng/mL <=0.034 CHANO (test code = [...] of biotin. Lab Interpretation (test code = 19207-7) Normal [facility] [id number] 18:35:19* Test Item Value Reference Range Interpretation Comme nts NT-proBNP (test code = 5283883774) 869 pg/mL <=450 H CHANO (test code = CHANO) Biotin has been reported to cause a negative bias, interpret results relative to patient's use of biotin. Lab Interpretation (test code = 18178-9) Abnormal [facility] MET[facility]OLIC PANEL (85716)2022-08-01 18:25:17* Test Item Value Reference Range Interpretation Comme nts NA (test code = 5314700805) 135 mmol/L 135-145 K (test code = 0607409960) 4.6 mmol/L 3.5-5.0 CL (test code = 2799251415) 101 mmol/L 98-108 CO2 TOTAL (test code = 6946684806) 25 mmol/L 23-31 AGAP (test code = 8585916884) 9 2-16 BUN (test code = 3554992645) 19 mg/dL 7-23 GLUCOSE (test code = 9640508822) 114 mg/dL 70-110 H CREATININE (test code = 7590559677) 0.60 mg/dL 0.50-1.04 TOTAL BILI (test code = 1312491027) 1.2 mg/dL 0.1-1.1 H CALCIUM (test code = 1293803574) 8.5 mg/dL 8.6-10.6 L T PROTEIN (test code = 8143480918) 7.4 g/dL 6.3-8.2 ALBUMIN (test code = 3308940368) 4.2 g/dL 3.5-5.0 ALK PHOS (test code = 1982675217) 104 U/L 34-122 ALTv (test code = 1742-6) 23 U/L 5-35 AST(SGOT) (test code = 2340385887) 40 U/L 13-40 eGFR (test code = 0477326066) 94.8 mL/min/1.73m2 CHANO (test code = CHANO) [...] imaging tests). Lab Interpretation (test code = 68533-5) Abnormal [facility] [id number] 16:38:04* Test Item Value Reference Range Interpretation Comments TROPONIN I (test code = 9957373573) 0.005 ng/mL See_Comment [Automated message] The system [...] of biotin. Lab Interpretation (test code = 55408-1) Normal [facility] [id number] 16:34:44* Test Item Value Reference Range Interpretation Comme nts NT-proBNP (test code = 9839522477) 717 pg/mL See_Comment H [Automated message] The system which generated this result transmitted reference range: <=450. The reference range was not used to interpret this result as normal/abnormal. CHANO (test code = CHANO) Biotin has been reported to cause a negative bias, interpret results relative to patient's use of biotin. Lab Interpretation (test code = 54043-1) Abnormal [facility] CenterACTIVATED PARTIAL THRMPLAS [id number] 16:29:01* Test Item Value Reference Range Interpretation Comme [facility] APTT Patient (test code = 3173-2) See_Comment [Automated message] The system which generated this result transmitted reference range: 23 - 38 Seconds. The reference range was not used to interpret this result as normal/abnormal. CHANO (test code = CHANO) The [facility] patient population mean normal value for aPTT is 30 seconds. Lab Interpretation (test code = 12800-4) Normal [facility] CenterPROTHROMBIN TIME / [id number] 16:26:59* Test Item Value Reference Range Interpretation Comme [facility] PROTIME PATIENT (test code = 5964-2) See_Comment [Automated messa ge] The system which generated this result transmitted reference range: 12.0 - 14.7 Seconds. The reference range was not used to interpret this result as normal/abnormal. INR (test code = 6301-6) Normal INR <1.1; Warfarin Therapeutic range 2.0 to 3.0 or 2.5 to 3.5, depending upon the indications. Lab Interpretation (test code = 31146-4) Normal [facility] Center[facility] METABOLIC PANEL (86704)2022-07-07 16:26:24* Test Item Value Reference Range Interpretation Comme [facility] NA (test code = 7727252556) 135 mmol/L 135-145 K (test code = 6489534319) 3.4 mmol/L 3.5-5.0 L CL (test code = 9729935316) 98 mmol/L 98-108 CO2 TOTAL (test code = 9367012012) 23 mmol/L 23-31 AGAP (test code = 6790292783) 2-16 BUN (test code = 7021657407) 15 mg/dL 7-23 GLUCOSE (test code = 6320339589) 114 mg/dL 70-110 H CREATININE (test code = 5682621861) 0.57 mg/dL 0.50-1.04 TOTAL BILI (test code = 5132344177) 0.6 mg/dL 0.1-1.1 CALCIUM (test code = 0479281079) 8.9 mg/dL 8.6-10.6 T PROTEIN (test code = 9452038323) 7.3 g/dL 6.3-8.2 ALBUMIN (test code = 8684711538) 4.3 g/dL 3.5-5.0 ALK PHOS (test code = 9715457929) 121 U/L 34-122 ALTv (test code = 1742-6) 20 U/L 5-35 AST(SGOT) (test code = 5195728972) 28 U/L 13-40 eGFR (test code = 1484357626) mL/min/1.73m2 CHANO (test code = CHANO) Association [...] imaging tests). Lab Interpretation (test code = 81852-7) Abnormal [facility] WITH [id number] 16:12:21* Test Item Value Reference Range Interpretation Comme nts WBC (test code = 6690-2) See_Comment H [Automated messa ge] The system which generated this result transmitted reference range: 4.30 - 11.10 10*3/?L. The reference range was not used to interpret this result as normal/abnormal. RBC (test code = 789-8) See_Comment [Automated messa ge] The system which [...] 32.6 g/dL 31.6-35.1 RDW-SD (test code = 29661-1) 41.7 fL 39.0-49.9 RDW-CV (test code = 788-0) 12.8 % 12.0-15.5 PLT (test code = 777-3) See_Comment [Automated messa ge] The system which generated this result transmitted reference range: 166 - 358 10*3/?L. The reference range was not used to interpret this result as normal/abnormal. MPV (test code = 68208-3) 8.3 fL 9.5-12.9 L NRBC/100 WBC (test code = 0914367908) See_Comment [Automated [employer] ssage] The system which generated this result transmitted reference range: 0.0 - 10.0 /100 WBCs. The reference range was not used to interpret this result as normal/abnormal. NRBC x10^3 (test code = 1117103104) See_Comment [Automated [employer]] The system which generated this result transmitted reference range: 10*3/?L. The reference range was not used to interpret this result as normal/abnormal. GRAN MAT (NEUT) % (test code = 770-8) 75.0 % IMM GRAN % (test code = 2615613626) 0.50 % LYMPH % (test code = 736-9) 15.3 % MONO % (test code = 5905-5) 7.7 % EOS % (test code = 713-8) 1.0 % BASO % (test code = 706-2) 0.5 % GRAN MAT x10^3(ANC) (test code = 9560457747) 9.28 10*3/uL 1.88-7.09 H IMM GRAN x10^3 (test code = 0384969604) 0.06 10*3/uL 0.00-0.06 LYMPH x10^3 (test code = 731-0) 1.89 10*3/uL 1.32-3.29 MONO x10^3 (test code = 742-7) 0.95 10*3/uL 0.33-0.92 H EOS x10^3 (test code = 711-2) 0.12 10*3/uL 0.03-0.39 BASO x10^3 (test code = 704-7) 0.06 10*3/uL 0.01-0.07 Lab Interpretation (test code = 07315-5) Abnormal [facility] Notes Date/Time Note Provider Source 2023-08-28 13:57:00 [id number] [place] [address] PATIENT NAME: ROCK GOMEZ ADMIT DATE: 08/09/23 ACCOUNT NO: [id number] ROOM NO: [facility] AGE: 88 REPORT TYPE: eECHOCARDIOGRAM REPORT SEX: F ADMITTING PHYSICIAN: Marianne Mckay MD ATTENDING PHYSICIAN: Marianne Mckay MD *[facility]* [address] [place] [address] Transthoracic Echocardiogram Patient: Rock Gomez Study Date: 08/23/2023 BP: 156 / 67 URN: [id number] Location: : 1935 Age: 88 Gender: F Height: 60 in / 152.4 cm Weight: 152.1 lb / 69 kg BMI/BSA: 29.7 kg/m 2 / 1.73 m 2 *Ordering Physician: * Venus Junior *Interpreting Physician: * Herson Corona MD *Senior Mechanical Project Engineer: * ZairaAngelic Indications: S/p CABG. Study data: Transthoracic echocardiogram. Procedure: A transthoracic echocardiogram was performed. Images were obtained using a Frogmetricsid E Portable cardiac ultrasound machine. Image quality was good. The study was technically limited due to poor acoustic window availability. Complete 2D, complete spectral Doppler, color Doppler, and tissue Doppler. Location: Bedside. Patient room number: 307. Heart rate: 50 bpm. Findings Left ventricle: The cavity size is normal. Systolic function is normal. The estimated ejection fraction is 50-54%. Wall motion is normal; there are no regional wall motion abnormalities. Grade I diastolic dysfunction. Right ventricle: The cavity size is normal. Systolic function is normal. PATIENT NAME: ROCK GOMEZ Ventricular septum: The ventricular septum is normal. Left atrium: The atrium is normal in size. Right atrium: The atrium is normal in size. Aorta: Aortic root: The root is normal-sized. Aortic valve: The leaflets are mildly thickened and mildly calcified. The findings are consistent with mild stenosis. Mitral valve: There is no evidence of stenosis. There is trivial regurgitation. Tricuspid valve: There is mild regurgitation. Pulmonic valve: There is no evidence of stenosis. Pericardium: A pericardial effusion is identified. There is a right pleural effusion. Measurements Left ventricle Value Ref CRUZITO, LAX 3.9 cm 3.8 - 5.2 ESD, LAX 2.8 cm 2.2 - 3.5 FS, LAX 28 % 27 - 45 IVS, ED 1.1 cm 0.6 - 0.9 IVS, ES 1.4 cm --------- ESD 2.8 cm 2.2 - 3.5 FS 28 % 27 - 45 PW, ED 1.1 cm 0.6 - 0.9 PW, ES 1.4 cm --------- IVS/PW, ED 1.05 --------- EF 54 % 54 - 74 EF, MM on 2D Teich. 54 % >=55 E', lat julian, TDI 8.6 cm/sec >=10.0 E/e', lat julian, TDI 10 <=13 E', med julian, TDI 4.5 cm/sec >=7.0 E/e', med julian, TDI 16 --------- E', avg, TDI 6.4 cm/sec --------- E/e', avg, TDI 12 <=14 LVOT Value Ref Diam, S 2.00 cm --------- Area 3.1 cm 2 --------- Peak lupe, S 0.79 m/sec --------- Mean lupe, S 0.53 m/sec --------- VTI, S 19.6 cm --------- Peak grad, S 2 mm Hg --------- Mean grad, S 1 mm Hg --------- SV 58 ml --------- SV/bsa 34 ml/m 2 --------- Right ventricle Value Ref CRUZITO, LAX 2.7 cm --------- CRUZITO 2.7 cm --------- Left atrium Value Ref LA ID 3.7 cm --------- PATIENT NAME: ROCK GOMEZ AP dim, ES 3.7 cm 2.7 - 3.8 AP dim ES, LAX 3.7 cm 2.7 - 3.8 SI dim ES, LAX 3.7 cm --------- LA/Ao root ratio 1.17 --------- AP dim, ES MM 3.7 cm 2.7 - 3.8 LA/Ao root ratio, MM 1 --------- Aortic valve Value Ref Peak v, S 2.6 m/sec --------- Mean v, S 1.83 m/sec --------- VTI, S 55.0 cm --------- Mean grad, S 16 mm Hg --------- Peak grad, S 28.0 mm Hg --------- LVOT/AV, VTI ratio 0.36 --------- CHRISTIAN, VTI 0.97 cm 2 --------- LVOT/AV, Vpeak ratio 0.3 --------- CHRISTIAN, Vmax 1.09 cm 2 --------- Mitral valve Value Ref Mean v, D 0.67 m/sec --------- Peak E 0.06 m/sec --------- Peak A 0.73 m/sec --------- VTI leaflet coapt 38.6 cm --------- MiV/LVOT VTI 2.0 --------- Decel time 263 ms --------- Mean grad, D 2 mm Hg --------- Peak grad, D 5.0 mm Hg --------- Peak E/A ratio 1.01 --------- MR peak v 3.49 m/sec --------- Tricuspid valve Value Ref TR peak v 2.8 m/sec <=2.8 Peak RV-RA grad, S 31 mm Hg --------- Aortic root Value Ref Root diam 3.1 cm 2.5 - 3.9 Root diam, ED MM 3.7 cm --------- Ascending aorta Value Ref AAo AP diam, S 2.8 cm --------- Conclusions Summary: 1. Left ventricle: The cavity size is normal. Systolic function is normal. The estimated ejection fraction is 50-54%. Wall motion is normal; there are no regional wall motion abnormalities. Grade I diastolic dysfunction. 2. Aortic valve: The findings are consistent with mild stenosis. 3. Pericardium, extracardiac: A pericardial effusion is identified. There is a right pleural effusion. Electronically signed by PATIENT NAME: ROCK GOMEZ Herson Corona MD 08/28/2023 13:57 at 1357 PATIENT NAME: ROCK GOMEZ [facility] 2023-08-27 11:27:00 [facility] ([facility]) Med Order Sheet REPORT #: [id number] REPORT STATUS: Signed DATE: 08/27/23 TIME: 1127 PATIENT: ROCK GOMEZ UNIT #: [id number] ROOM #: P.0405 BED: A : 36 AGE: 88 SEX: F ATTEND: Marianne Mckay MD ADM AUTHOR: Marianne Mckay MD ATTENTION *EDITS and/or ADDENDA must be made in Patient Keeper for this note. * * Edits and ammendments created in [employer] are not visible * * in Patient Keeper or the legal medical record (HPF). * Discharge Medication Reconciliation DISCHARGE MEDICATION LIST aspirin chewable tablet Dose: 81MG PO DAILY Atorvastatin Tab (Lipitor Tab) Dose: 80MG PO BEDTIME Clopidogrel Tab (Plavix Tab) Dose: 75 MG PO DAILY Hyoscyamine Tab (Levsin Tab) Dose: 0.125MG PO DAILY PRN excessive oral secretions Montelukast Tab (Singulair Tab) Dose: 10MG PO DAILY@1800 Acetaminophen Tab (Tylenol Tab) Dose: 650MG PO Q4H PRN temp > 38.5 c Albuterol Neb 2.5mg (Ventolin Neb 2.5mg) Dose: 2.5MG Neb RTQ6H PRN wheezing shortness of breath Amiodarone Tab (Cordarone Tab) Dose: 200MG PO Q12HR CARVEdilol Tab (Coreg Tab) Dose: 6.25MG PO BID clonazePAM Tab (KlonoPIN Tab) Dose: 0.5MG PO BEDTIME PRN insomnia Cyanocobalamin Tab (Vitamin B-12 Tab) Dose: 500MCG PO DAILY Doxycycline Monohydrate Cap (Monodox Cap) Dose: 100MG PO Q12HR - x 3 days Enoxaparin 30 mg/0.3 ml Inj (Lovenox 30 mg/0.3 ml Inj) Dose: 30MG SubQ DAILY Ferrous Sulfate Tab (Feosol Tab) Dose: 325MG PO DAILY Furosemide Tab (Lasix Tab) Dose: 20MG PO QAM Lidocaine Patch 4% (Lidoderm Patch 4%) Dose: 1PATCH Transderm DAILY Senna Tab (Senokot Tab) Dose:8.6 mg 1TAB PO DAILY Hosp: KLOR-CON Tab (Potassium Chloride ER Tab) Dose: 10 MEQ PO DAILY STOPPED HOME MEDICATIONS Dc'd: Famotidine Tab (Pepcid Tab) 20 MG PO BIDDc'd: LORazepam Tab (Ativan Tab) 0.5 MG PO Q8H PRN anxiety Dc'd: Losartan Tab (Cozaar Tab) 100 MG PO DAILYDc'd: Metoprolol Succinate XL Tab (Toprol XL Tab) OralDc'd: Naproxen Tab (Naprosyn Tab) 500 MG PO DAILY STOPPED HOSPITAL MEDICATIONS Dc'd: Acetaminophen Supp (Tylenol Supp) 650MG Rectal Q4H PRN temp > 38.5c if npo/intubatedDc'd: Bisacodyl Supp (Dulcolax Supp) 10MG Rectal ASDIR X 1 doses PRN no bm pod3 2100Dc'd: Bisacodyl Supp (Dulcolax Supp) 10MG Rectal DAILY PRN constipationDc'd: Calcium gluconate 2 GM/NS 100 mL IVPB 2GM 600 MLS/HR IV ASDIR PRN ionized calcium less than 1.2Dc'd: Dextrose 50% 50 ml Syringe (D50W 50 ml Syringe) 25ML IV ASDIR PRN hypoglycemiaDc'd: Docusate Sodium Oral Liquid (Colace Oral Liquid) 200MG PO DAILYDc'd: Glucagon Inj (Glucagon Inj) 1MG IM ASDIR PRN hypoglycemia if no iv/enteralDc'd: guaiFENesin Oral Liquid (Robitussin Oral Liquid) 100MG PO Q4H PRN coughDc'd: KCl 20mEq/100mL IVPB (Potassium Chloride 20mEq/100mL IVPB) 20MEQ IV ASDIR PRN see admin criteriaDc'd: Magnesium Sulfate 1GM IVPB (Magnesium Sulfate 1GM IVPB) 1GM 100 MLS/HR IV ASDIR PRN see admin criteriaDc'd: Nitroglycerin SL Tab (Nitrostat SL Tab) 0.4MG SL Q5M PRN chest painDc'd: Ondansetron Inj (Zofran Inj) 4MG IV Q6H PRN nausea and vomitingDc'd: Ondansetron ODT Tab (Zofran ODT Tab) 4MG PO Q6H PRN nausea and vomitingDc'd: Polyethylene Glycol Powder (Miralax Powder) 1PKT PO DAILYDc'd: Potassium Chlor Tab.ER (K Dur Tab) 20MEQ PO ASDIR PRN electrolyte sliding scaleDc'd: Sod Biphos/Pot Phosphate Pkt (Neutra-Phos Packet) 2PKT PO ASDIR PRN serum phosphorus 2-2.7Dc'd: Sodium Bicarb 8.4% 50ml Syr (Sodium Bicarb 8.4% 50ml Syr) 50MEQ IV .ONCE PRN base deficit of -3Dc'd: Sodium Chloride 0.9% Inj (NS Flush Inj) 10ML IV ASDIR at 1127 ATTENTION *EDITS and/or ADDENDA must be made in Patient Keeper for this note. * * Edits and ammendments created in [employer] are not visible * * in Patient Keeper or the legal medical record (HPF). * [facility] #: [id number] END OF REPORT [facility] 2023-08-27 11:26:00 [facility] ([facility]) Hospitalist D/C Summary REPORT #: [id number] REPORT STATUS: Signed DATE: 08/27/23 TIME: 1125 PATIENT: ROCK GOMEZ UNIT #: [id number] [facility] B[facility]: A : [facility] AGE: 88 SEX: F ATTEND: Marianne Mckay MD ADM AUTHOR: Marianne Mckay MD ATTENTION *EDITS and/or ADDENDA must be made in Patient Keeper for this note. * * Edits and ammendments created in [employer] are not visible * * in Patient Keeper or the legal medical record (HPF). * -- PROBLEMS/PROCEDURES -- ADMISSION DATE: 08/09/23 ADMITTING DIAGNOSES: - Acute posthemorrhagic anemia - Anxiety disorder, unspecified - At risk for hemorrhage associated with surgery - Atherosclerosis of coronary artery bypass graft(s) without angina pectoris - Atrial tachycardia - CAD (coronary artery disease) - Complete heart block, post-surgical - Disorder of arteries and arterioles, unspecified - Hypoxemia - Non-ST elevation (NSTEMI) myocardial infarction - NSTEMI (non-ST elevated myocardial infarction) - Pleural effusion - Pulmonary edema - Respiratory insufficiency - Tachycardia - Unspecified asthma, uncomplicated DISCHARGE DATE: 08/27/23 DISCHARGE DIAGNOSES: - Acute posthemorrhagic anemia - Anxiety disorder, unspecified - At risk for hemorrhage associated with surgery - Atherosclerosis of coronary artery bypass graft(s) without angina pectoris - Atrial tachycardia - CAD (coronary artery disease) - Complete heart block, post-surgical - Disorder of arteries and arterioles, unspecified - Hypoxemia - Non-ST elevation (NSTEMI) myocardial infarction - NSTEMI (non-ST elevated myocardial infarction) - Pleural effusion - Pulmonary edema - Respiratory insufficiency - Tachycardia - Unspecified asthma, uncomplicated -- HOSPITAL COURSE -- HOSPITAL COURSE: This 88-year-old female, a patient of Dr. Gianna Ambrose, has a past medical history significant for hypertension, hyperlipidemia, asthma, anxiety, chronic bronchitis, and coronary artery disease, status post angioplasty in 2011. A few weeks ago, the patient developed new onset of jaw pain and dyspnea, and noninvasive cardiac workup by Dr. Ambrose including a nuclear stress test showed an ejection fraction of 34% with severe inferolateral and posterolateral ischemia, a change from a previously normal ejection fraction of 55% to 60% in 06/2023. Subsequent coronary angiogram on 07/31/2023 showed severe multivessel coronary artery disease including 80% proximal LAD, 90% ostial and proximal circumflex, heavily calcified RCA with a distal occluded stent, and an ejection fraction during the heart catheterization to be 55%, elevated left ventricular end diastolic pressure at 33. The patient was evaluated by Dr. King Montiel of Cardiothoracic Surgery services on 08/06 and discussions were underway as regards to possible bypass surgery. Since that time, the patient has had increased anxiety about the possibility of undergoing bypass surgery and has not been able to sleep or rest well. On the morning of admission, she developed central chest pressure with radiation to the jaw and worsening shortness of breath. She presented to the [facility] in [place], [place], where troponin was elevated to 300 range and EKG was negative for ST elevation. She was also found to be in fluid overload, started on ACS protocol, heparin, Lasix and transferred to the [facility] for higher level of care. Troponin has trended up 530 and BNP 539, and chest x-ray shows interstitial pulmonary edema/infiltrates. She is being admitted to the intensive care unit for further evaluation and management. CLINICAL COURSE: 08/10: No acute events overnight. No significant chest pain or shortness of breath. Anxious. Troponin is trending down. On intravenous heparin, beta-blockers aspirin and statins. Plavix is on hold in case the patient goes for CABG. Cardiology and cardiothoracic surgery services following. Await further recommendations 08/11: No chest pain jaw pain or arm pain. On heparin infusion. Plans for high risk CABG week of 08/[address] King Montiel. The patient is being transitioned out to [facility] IMU, pending CABG. Walked 320 feet with physical therapy 08/12: Denies any chest pain or shortness of breath. No headache or dizziness. No nausea or vomiting. Has chronic constipation. On heparin infusion. Plans for high risk CABG week of 08/[address] King Montiel 08/13: No acute events overnight. No chest pain or shortness of breath. No headache or dizziness. The patient was reluctant to get her blood drawn for the PTT, explained to by the nurses. Agreeable. PTT therapeutic. Potassium low, 2.9, replaced On Lasix 40 mg IV daily. Intake and output are not accurate. Walked about 320 feet with physical therapy. 08/14: No acute events overnight. Just anxious, taking her benzodiazepines. On heparin infusion. On diuretics and electrolyte replacement. Plans for high risk CABG week of 08/[address] King Montiel. 08/15: Heparin stopped by Dr. King Montiel. Surgery most likely 08/17. In general doing okay. No chest pain or shortness of breath. No headache or dizziness. Anxious. 08/16: No acute events. No chest pain or shortness of breath. In general feels all right. Plans for high risk CABG 08/[address] King Montiel 08/17: The patient underwent 3V CABG, SCHWARTZ to LAD, saphenous vein graft to the obtuse marginal and saphenous vein graft to the posterior descending artery by Dr King Montiel 08/17/20. EBL 750 cc. Received 2 units of PRBC and 2 Cell Saver. Urine output is good. [address] extubated 08/17 08/18: Was on 2 L of oxygen, wean down to room air. Complete heart block, temporary pacer dependent. EP consulted. [address]. 08/19: Patient developed lethargic today after pain medications. On 2 L via NC Temporary pacer dependent. [address] walked 120 feet with PT. tired appearing 08/21: Patient evaluated at bedside and reports that she would like to walk. Denies having any chest pain nausea or vomiting at this time. 08/22: Patient continues to have a Munoz catheter, and magnesium is 1.7 potassium 3.3 which were replaced. Patient sitting on bedside chair. Complete heart block and accelerated junctional underlying if no recovery would benefit from permanent pacemaker 08/23: On 1 L of oxygen via nasal cannula. No chest pain. Feels tired. Underwent 2D echocardiogram today. For permanent pacemaker 08/24 08/24: underwent Direct Left Bundle Dual Chamber Pacemaker Implantation (Jean) by Dr Jared Wilcox. 08/25: Underwent direct left bundle dual-chamber but permanent pacemaker placement with Dr. Jared Wilcox on 08/24. She tolerated the procedure well. She has left pleural effusion, plan is for ultrasound to see if it can be tapped. To start on low-dose beta-blockers today and see how she tolerates them. started on Amiodarone 200 mg Q 12 HOURS FOR 5 days followed by once daily for the total of 3 months. Indication for the above treatment is atrial tachycardia that she developed post pacemaker placement. She will be going to inpatient rehab. : On room air. IMU status. Pain is under good control. Walked with physical therapy 2 laps. Eating better. Plans for [facility] 08/2608/27/23: The patient is hemodynamically stable and cleared for discharge to [facility] inpatient rehab on 08/27/2023. She will follow-up with her primary medical clinic manager, Dr Gianna Ambrose in 1 to 2 weeks, With Dr. King Montiel in 2 weeks for post CABG follow-up, And with Dr. Jared wilcox of electrophysiology in 2 to 3 weeks for device follow-up. Adequate instructions have been provided. FINAL DIAGNOSIS: 1. Non-ST segment elevation myocardial infarction in a patient with a known history of severe multivessel coronary artery disease including proximal 80% LAD, 90% ostial and proximal circumflex and distal RCA with stent occlusion, preserved left ventricular ejection fraction on angiogram. The patient has recently been evaluated by Dr. King Montiel of Cardiothoracic Surgery services for consideration of coronary artery bypass and grafting. We will continue aspirin, heparin, beta blockers, statins and nitroglycerin. The patient underwent 3V CABG, SCHWARTZ to LAD, saphenous vein graft to the obtuse marginal and saphenous vein graft to the posterior descending artery by Dr King Montiel 08/17/20. EBL 750 cc. Received 2 units of PRBC and 2 Cell Saver. Urine output is good. [address] extubated POD 0 2. Pulmonary edema, related to decompensated diastolic congestive cardiac failure. Cautious use of diuretics. 3. Hypertension. Continue metoprolol and losartan. 4. Hyperlipidemia. Total cholesterol 226, HDL 90, LDL 139, triglycerides 121. Continue atorvastatin 80 mg daily. 5. Hypomagnesemia, replete. 6. Asthma. Continue montelukast. 7. Anxiety, not otherwise specified. Continue lorazepam. 8. Acute exacerbation of likely diastolic congestive heart failure. Diurese as above. 9. Osteoarthritis, avoid nonsteroidals. 10. Chronic kidney disease, stage II. 11. Hypokalemia, replete 12. Complete heart block, temporary pacer dependent. underwent Direct Left Bundle Dual Chamber Pacemaker Implantation ([facility]) by Dr Jared Wilcox 08/24/23 13. Atelectasis. 14. Prophylaxis. Frequent turning, barrier, decubitus ulcer prevention. 15. Left pleural effusion, trace. diuretics. -- DISCHARGE MEDICATIONS -- ALLERGIES: codeine (Severe - Allergy) diphenhydramine (Severe - Allergy) Penicillins (Severe - Allergy) Tetanus Vaccines and Toxoid (Severe - Allergy) [EXTERNAL] ANATOXIN (UNKNOWN - External allergies are for display only, consider adding to medical record for drug interaction check) [EXTERNAL] Benadryl (UNKNOWN - External allergies are for display only, consider adding to medical record for drug interaction check) [EXTERNAL] codeine CODEINE (UNKNOWN - External allergies are for display only, consider adding to medical record for drug interaction check) [EXTERNAL] Codeine Sulfate (UNKNOWN - External allergies are for display only, consider adding to medical record for drug interaction check) [EXTERNAL] diphenhydramine From BENADRYL (UNKNOWN - External allergies are for display only, consider adding to medical record for drug interaction check) [EXTERNAL] Penicillin (UNKNOWN - External allergies are for display only, consider adding to medical record for drug interaction check) [EXTERNAL] Penicillins PENICILLINS (UNKNOWN - External allergies are for display only, consider adding to medical record for drug interaction check) [EXTERNAL] Tetanus Immune Globulin (UNKNOWN - External allergies are for display only, consider adding to medical record for drug interaction check) DISCHARGE MEDICATIONS: Please refer to Discharge Medication list for a complete list of discharge medications Acetaminophen Tab (Tylenol Tab) 650MG PO Q4H PRN temp gt; 38.5 c Albuterol Neb 2.5mg (Ventolin Neb 2.5mg) 2.5MG Neb RTQ6H PRN wheezing amp; shortness of breath Amiodarone Tab (Cordarone Tab) 200MG PO Q12HR aspirin chewable tablet 81MG PO DAILY Atorvastatin Tab (Lipitor Tab) 80MG PO BEDTIME CARVEdilol Tab (Coreg Tab) 6.25MG PO BID clonazePAM Tab (KlonoPIN Tab) 0.5MG PO BEDTIME PRN insomnia Clopidogrel Tab (Plavix Tab) 75 MG PO DAILY Cyanocobalamin Tab (Vitamin B-12 Tab) 500MCG PO DAILY Doxycycline Monohydrate Cap (Monodox Cap) 100MG PO Q12HR (x 3 days) Enoxaparin 30 mg/0.3 ml Inj (Lovenox 30 mg/0.3 ml Inj) 30MG SubQ DAILY Ferrous Sulfate Tab (Feosol Tab) 325MG PO DAILY Furosemide Tab (Lasix Tab) 20MG PO QAM Hyoscyamine Tab (Levsin Tab) 0.125MG PO DAILY PRN excessive oral secretions KLOR-CON Tab (Potassium Chloride ER Tab) 10 MEQ PO DAILY Lidocaine Patch 4% (Lidoderm Patch 4%) 1PATCH Transderm DAILY Montelukast Tab (Singulair Tab) 10MG PO DAILY@1800 Senna Tab (Senokot Tab) 8.6 mg 1TAB PO DAILY -- DISCHARGE INSTRUCTIONS -- ADMISSION ORDERS: Discharge Follow Up Details: Order number: [id number] Category: ADT - Admission Orders Order status: Transmitted Details: Consulting provider 1: [email or web address]:Jared Wilcox MD Consulting provider 1: . Consult follow up timeframe: In 2-3 weeks Consult special instructions: device follow up Ordered by: Marianne Mckay MD Aug 27, 2023 11:27am Entered by: Marianne Mckay MD Service date: Aug 27, 2023 11:26am PK DISCHARGE ORDERS: DC - ALL eCQMS Details: Order number: [id number] Category: PKDC - PK DISCHARGE ORDERS Order status: Transmitted Details: Does patient have any of the following conditions at discharge? CABG Statin at Discharge: Yes EJ Fraction: gt;40% Aspirin at Discharge: Yes Beta-Rashi at Discharge: Yes Antiplatelet/P2Y12 at Discharge: Yes Aldosterone Antagonist at Discharge: No - Not Applicable Ordered by: Marianne Mckay MD Aug 27, 2023 11:27am Entered by: Marianne Mckay MD Service date: Aug 27, 2023 11:26am Details: Order number: [id number] Category: PKDC - PK DISCHARGE ORDERS Order status: Transmitted Details: Discharge Parameters: IP Rehab bed ready Meds given Meds to be Given:(Enter specifics) scheduled meds Discharge order with parameter: Yes Notify attending when discharge parameter met: Yes Discharge to: Inpatient Rehab Facility Diet: Cardiac Activity: As Tolerated No Lifting gt;10lbs Sternal Precautions PPM precautions PCP: GOLDEN:Gianna Ambrose MD Cardiology PCP follow up timeframe: In 1-2 weeks Notify PCP of Signs/Symptoms: Chest Pain Moderate/large bleeding Shortness of breath Temp. 101 or greater Wound/dressing care: Clean wound daily OK to shower tomorrow Weight Monitoring: Daily Additional instructions: discharge to [facility] meds per med rec. Attending Physician: RODRIGUE:King Montiel MD Attending physician follow up timeframe: 2 weeks Attending physician special instructions: post CABG f/u. Additional Discharge Routines: PCP Follow-Up Attending Follow-Up Ordered by: Marianne Mckay MD Aug 27, 2023 11:27am Entered by: Marianne Mckay MD Service date: Aug 27, 2023 11:26am Discharge Madi w/instruction ADDTIONAL DISCHARGE INSTRUCTIONS: Emergency Instructions: The patient was instructed to present to the nearest Emergency Department or call 911 should their symptoms return or worsen.; -- OBJECTIVE -- VITALS ( 11:26 - 08/26 11:26): Temperature F: 97.7 (97.4 - 97.9) Temperature C: 36.5 (36.4 - 36.6) Temperature source: Oral Pulse Rate 77 (69 - 93) Respiratory rate: 27 (14 - 41) Blood pressure: 137/65 (85/53 - 159/86) Blood pressure source: Monitor I/Os ( 07:00 - 08/26 07:00): Net -350.00 Intake 250.00 Output 600 -EXAM- GENERAL: GENERAL: Elderly female, anxious, not in any acute distress. VITAL SIGNS: Weight is 61.3 kilograms. Body mass index 27.3. HEENT: Head is atraumatic. NECK: Supple. No thyromegaly. No JVD. CARDIOVASCULAR: Regular rate and rhythm. CHEST: sternotomy; 2/2 CTs out; CHIN PPM LUNGS: Coarse BS ABDOMEN: Soft, nondistended, nontender. No organomegaly. EXTREMITIES: No edema, cyanosis, or clubbing. Pedal pulses palpable. NEUROLOGIC: No focal deficit. -- DATA -- LABS CBC W/AUTO DIFF (08/26/23 04:47) WHITE BLOOD CELL 7.0 RED BLOOD CELL 3.56 L HEMOGLOBIN 10.1L L HEMATOCRIT 32.8L L MEAN CELL VOLUME 92.1 MEAN CELL HGB 28.4 MEAN CELL HGB CONCENTRATION 30.8 L RED CELL DISTRIBUTION WIDTH 15.3 PLATELET COUNT 377 MEAN PLATELET VOLUME 9.3 NEUTROPHIL % 60.0 LYMPHOCYTE % 24.7 MONOCYTE % 7.9 EOSINOPHIL % 5.5 BASOPHIL % 0.9 NEUTROPHIL # 4.19 LYMPHOCYTE # 1.72 MONOCYTE # 0.55 EOSINOPHIL # 0.38 BASOPHIL # 0.06 PHOS (08/26/23 04:47) PHOSPHOROUS 3.9 BASIC METABOLIC PANEL (08/26/23 04:47) SODIUM 137 POTASSIUM 4.3 CHLORIDE 106 CARBON DIOXIDE 23 GLUCOSE 104 BLOOD UREA NITROGEN 11 GLOMERULAR FILTRATION RATE >=60 max estimate CREATININE 0.60 CALCIUM 9.9 D MAG (08/26/23 04:47) MAGNESIUM 1.9 TEST RESULTS XR CHEST 1 V (08/27/23 09:15) XR CHEST 1 V Chest Radiograph History: Shortness of breath Comparison: August 25, 2023 Location: H45 A single frontal view of the chest is submitted. The heart appears unchanged in size. Pulmonary vasculature is unremarkable. There is a patchy opacity in the left lung base. There is a small left pleural effusion. The bones appear unchanged. IMPRESSION: Patchy opacity left lung base. This could be due to atelectasis or pneumonia. There is a small left pleural effusion. Compared to the prior exam, there has been little change. Reported by: JIGAR DAWN M.D. Signed by: JIGAR DAWN M.D. -- QUALITY -- -MEDICATIONS- - I attest that the foregoing medication list in the medical record is true, accurate, and complete to the best of my knowledge. -- ATTESTATION -- TIME SPENT ON PATIENT CARE: - Direct 35 minutes - > 50% of time spent on Counseling/Care Coordination CARE ACTIVITIES / CARE COORDINATION: - I have reviewed the history and repeated the snyder elements - I have seen and examined this patient - I have reviewed the progress in the clinical course since the last examination - I have discussed the patient's condition with other members of the care team Signed in PatientKeeper by Marianne Mckay MD on 09/25/23 at 14:34 at 1434 ATTENTION *EDITS and/or ADDENDA must be made in Patient Keeper for this note. * * Edits and ammendments created in [employer] are not visible * * in Patient Keeper or the legal medical record ([facility]). * RPT #: [id number] END OF REPORT [facility] 2023-08-27 09:14:00 [facility] ([facility]) Cardiology Progress Notes REPORT #: [id number] REPORT STATUS: Signed DATE: 08/27/23 TIME: 913 PATIENT: ROCK GOMEZ UNIT #: [id number] ROOM #: P.0405 BED: A : 36 AGE: 88 SEX: F ATTEND: Marianne Mckay MD ADM AUTHOR: Hollie Matthews NP ATTENTION *EDITS and/or ADDENDA must be made in Patient Keeper for this note. * * Edits and ammendments created in [employer] are not visible * * in Patient Keeper or the legal medical record ([facility]). * -- CO-SIGNATURE -- COMMENTS: The patient was seen on rounds with Hollie Matthews NP. The patient has no complaints Examination demonstrates normal heart sounds and clear lung hwang. Impression and plan The patient is an 88-year-old female who underwent three-vessel bypass surgery and is doing well postoperatively. The patient does have some shortness of breath today and we will add Lasix to her regimen. She is to continue her current guideline directed medical therapy and continue physical and Occupational Therapy. The patient will need some long-term placement for further inpatient rehabilitation. The patient still remains in complete heart block and will likely need to pacemaker. Signed in PatientKeeper by YUE GARZA MD on 09/11/23 at 22:43 -- ASSESSMENT AND PLAN -- GENERAL ASSESSMENT: The patient is an 88-year-old female who is referred by Dr. Gianna Ambrose for CABG. She has a history of coronary artery disease (s/p PCI with 3 ALEC), carotid artery disease, hypertension, hyperlipidemia, h/o remote smoking, and asthma/bronchitis - likely COPD. She was found to have 3 V coronary disease on coronary angiogram on 07/31/2023 not amenable for PCI so was referred to Dr. Montiel for CABG. She was admitted to an OSH with chest pain/jaw pain and ruled in for a NSTEMI. She was transferred here to [facility] and underwent CABG (SCHWARTZ-LAD, SVG-OM1, SVG-PDA) on 08/17/2023. She is currently awaiting placement to in-patient rehab. PROBLEMS: 1: CAD (coronary artery disease) A/P: - s/p CABG x 3V with Dr. Montiel on 08/17/2023. - TTE (08/23) LVEF >50% (improved post revascularization) - Mild SOB noticed - Chest X-ray shows atelectasis and small Left Pleural effusion. Add Lasix 20mg PO. - Continue aspirin 81mg qd, clopidogrel 75mg qd, atorvastatin 80mg qd - Started on carvedilol 6.25mg PO BID and tolerating - HR in the 60-70's. - Holding BB due to recent complete heart block - PT/OT/IS - Plan is for Rehab; hopefully later today. Accepted at [facility]. 2: Complete heart block, post-surgical A/P: - Possible myocardial stunning postop - EP consulted, s/p ppm 08/24 - On amiodarone for atrial tachycardia (200mg BID) - Minocycline 100mg BID X 7 days total (Day 4 of 7) -- SUBJECTIVE -- CHIEF COMPLAINT: Coronary artery disease PATIENT NARRATIVE: C/o some shortness of breath this morning. -REVIEW OF SYSTEMS- COMMENT: General: Negative for fever, malaise, fatigue. Eyes: Negative for blurry vision. No diplopia. Respiratory: + dyspnea, No wheeze. No cough. Cardiovascular: Negative for chest pain or palpitations. No extremity swelling. Gastrointestinal Negative for abdominal pain or nausea. No emesis. No diarrhea. Genitourinary: Negative for dysuria, frequency, or urgency. No gross hematuria. Musculoskeletal: Negative for joint stiffness, pain, or arthralgias. Skin: Negative for rashes. No pruritus. Neurological: Negative for headache. No vertigo. Denies paresthesias. Psychiatric: Negative for specific complaints. -- OBJECTIVE -- VITALS ( 10:14 - 08/26 10:14): Temperature F: 97.7 (97.4 - 97.9) Temperature C: 36.5 (36.4 - 36.6) Temperature source: Oral Pulse Rate 77 (69 - 93) Respiratory rate: 27 (14 - 41) Blood pressure: 137/65 (85/53 - 159/86) Blood pressure source: Monitor I/Os ( 07:00 - 08/26 07:00): Net -350.00 Intake 250.00 Output 600 -EXAM- OTHER: Constitutional: Well developed, well nourished patient, in no acute distress. Derm/Integumentary: Warm and dry with no rashes, sores, or lesions. Mouth: Mucosa moist and pink with no lesions. Neck: supple with no masses, no thryomegaly, No JVD. Respiratory: Very decreased left lower lung base. Heart: S1S2+, Regular Rate and Rhythm, No murmurs, rubs, or gallops. Gastrointestinal: + Bowel Sounds all quadrants. Soft, nontender with no masses or organomegaly. Musculoskeletal: Equal strength in all extremities. No weakness. Neurology: Alert and oriented X 3. Calm, cooperative affect. No focal deficits. Extremities: + peripheral pulses. No clubbing, cyanosis. No lower extremity edema. -- DATA -- MEDICATIONS ACETAMINOPHEN 650 MG RECTAL Q4H PRN ALBUTEROL SULFATE 2.5 MG NEB RTQ6H PRN polyethylene glycoL 3350 1 PKT PO DAILY POTASSIUM CHLORIDE 20 MEQ PO ASDIR PRN carvediloL 6.25 MG PO BID AMIODARONE HCL 200 MG PO Q12HR CALCIUM GLUC IN NACL, ISO-OSM 2 GM IV ASDIR PRN ACETAMINOPHEN 650 MG PO Q4H PRN DOXYCYCLINE MONOHYDRATE 100 MG PO Q12HR ENOXAPARIN 30 MG SUBQ DAILY NITROGLYCERIN 0.4 MG SL Q5M PRN clopidogreL 75 MG PO DAILY SENNOSIDES 1 TAB PO DAILY POTASSIUM CHLORIDE 20 MEQ IV ASDIR (PRN) ASPIRIN 81 MG PO DAILY ATORVASTATIN CALCIUM 80 MG PO BEDTIME SODIUM CHLORIDE 10 mL 10 ML IV ASDIR HYOSCYAMINE SULFATE 0.125 MG PO DAILY PRN bisacodyL 10 MG RECTAL ASDIR PRN CYANOCOBALAMIN 500 MCG PO DAILY DEXTROSE 50%-WATER 25 ML IV ASDIR PRN clonazePAM 0.5 MG PO BEDTIME PRN GLUCAGON 1 MG IM ASDIR PRN SOD BIPHOS/POT PHOSPHATE 2 PKT PO ASDIR (PRN) DOCUSATE SODIUM 200 MG PO DAILY LIDOCAINE 1 PATCH TRANSDERM DAILY ONDANSETRON 4 MG PO Q6H PRN MONTELUKAST SODIUM 10 MG PO DAILY@1800 ONDANSETRON HCL/PF 4 MG IV Q6H PRN bisacodyL 10 MG RECTAL DAILY PRN MAGNESIUM 1 GM IV ASDIR PRN guaiFENesin 100 MG PO Q4H PRN SODIUM BICARBONATE 8.4% 50 MEQ IV .ONCE PRN FERROUS SULFATE 325 MG PO DAILY -- ATTESTATION -- CARE ACTIVITIES / CARE COORDINATION: - I have reviewed the history and repeated the snyder elements - I have seen and examined this patient - I have reviewed the progress in the clinical course since the last examination - I have discussed the patient's condition with other members of the care team Signed in PatientKeeper by HOLLIE MATTHEWS NP on 08/27/23 at 10:32 Cosigned by YUE GARZA MD on 09/11/23 at 22:43 at 2243 at 2243 ATTENTION *EDITS and/or ADDENDA must be made in Patient Keeper for this note. * * Edits and ammendments created in [employer] are not visible * * in Patient Keeper or the legal medical record ([facility]). * [facility] #: [id number] END OF REPORT [facility] 2023-08-26 18:41:00 [facility] ([facility]) Hospitalist Progress Note REPORT #: [id number] REPORT STATUS: Signed DATE: 08/26/23 TIME: 1840 PATIENT: ROCK GOMEZ UNIT #: [id number] ROOM #: P.0405 BED: A : 36 AGE: 88 SEX: F ATTEND: Marianne Mckay MD ADM AUTHOR: Marianne Mckay MD ATTENTION *EDITS and/or ADDENDA must be made in Patient Keeper for this note. * * Edits and ammendments created in [employer] are not visible * * in Patient Keeper or the legal medical record ([facility]). * -- ASSESSMENT AND PLAN -- GENERAL ASSESSMENT: ASSESSMENT AND PLAN: 1. Non-ST segment elevation myocardial infarction in a patient with a known history of severe multivessel coronary artery disease including proximal 80% LAD, 90% ostial and proximal circumflex and distal RCA with stent occlusion, preserved left ventricular ejection fraction on angiogram. The patient has recently been evaluated by Dr. King Montiel of Cardiothoracic Surgery services for consideration of coronary artery bypass and grafting. We will continue aspirin, heparin, beta blockers, statins and nitroglycerin. The patient underwent 3V CABG, SCHWARTZ to LAD, saphenous vein graft to the obtuse marginal and saphenous vein graft to the posterior descending artery by Dr King Montiel 08/17/20. EBL 750 cc. Received 2 units of PRBC and 2 Cell Saver. Urine output is good. [address] extubated POD 0 2. Pulmonary edema, related to decompensated diastolic congestive cardiac failure. Cautious use of diuretics. 3. Hypertension. Continue metoprolol and losartan. 4. Hyperlipidemia. Total cholesterol 226, HDL 90, LDL 139, triglycerides 121. Continue atorvastatin 80 mg daily. 5. Hypomagnesemia, replete. 6. Asthma. Continue montelukast. 7. Anxiety, not otherwise specified. Continue lorazepam. 8. Acute exacerbation of likely diastolic congestive heart failure. Diurese as above. 9. Osteoarthritis, avoid nonsteroidals. 10. Chronic kidney disease, stage II. 11. Hypokalemia, replete 12. Complete heart block, temporary pacer dependent. underwent Direct Left Bundle Dual Chamber Pacemaker Implantation (Jean) by Dr Jared Wilcox 08/24/23 13. Atelectasis. 14. Prophylaxis. Frequent turning, barrier, decubitus ulcer prevention. 15. Left pleural effusion. ADDITIONAL COMMENTS: The patient underwent 3V CABG, SCHWARTZ to LAD, saphenous vein graft to the obtuse marginal and saphenous vein graft to the posterior descending artery by Dr King Montiel 08/17/20. extubated 08/17. s/p PPM for CHB 08/24. Plans for [facility] 08/26 -- SUBJECTIVE -- HPI: This 88-year-old female, a patient of Dr. Gianna Ambrose, has a past medical history significant for hypertension, hyperlipidemia, asthma, anxiety, chronic bronchitis, and coronary artery disease, status post angioplasty in 2011. A few weeks ago, the patient developed new onset of jaw pain and dyspnea, and noninvasive cardiac workup by Dr. Ambrose including a nuclear stress test showed an ejection fraction of 34% with severe inferolateral and posterolateral ischemia, a change from a previously normal ejection fraction of 55% to 60% in 06/2023. Subsequent coronary angiogram on 07/31/2023 showed severe multivessel coronary artery disease including 80% proximal LAD, 90% ostial and proximal circumflex, heavily calcified RCA with a distal occluded stent, and an ejection fraction during the heart catheterization to be 55%, elevated left ventricular end diastolic pressure at 33. The patient was evaluated by Dr. King Montiel of Cardiothoracic Surgery services on 08/06 and discussions were underway as regards to possible bypass surgery. Since that time, the patient has had increased anxiety about the possibility of undergoing bypass surgery and has not been able to sleep or rest well. On the morning of admission, she developed central chest pressure with radiation to the jaw and worsening shortness of breath. She presented to the [facility] in [place], [place], where troponin was elevated to 300 range and EKG was negative for ST elevation. She was also found to be in fluid overload, started on ACS protocol, heparin, Lasix and transferred to the [facility] for higher level of care. Troponin has trended up 530 and BNP 539, and chest x-ray shows interstitial pulmonary edema/infiltrates. She is being admitted to the intensive care unit for further evaluation and management. PATIENT NARRATIVE: 08/10: No acute events overnight. No significant chest pain or shortness of breath. Anxious. Troponin is trending down. On intravenous heparin, beta-blockers aspirin and statins. Plavix is on hold in case the patient goes for CABG. Cardiology and cardiothoracic surgery services following. Await further recommendations 08/11: No chest pain jaw pain or arm pain. On heparin infusion. Plans for high risk CABG week of 08/[address] King Montiel. The patient is being transitioned out to CV IMU, pending CABG. Walked 320 feet with physical therapy 08/12: Denies any chest pain or shortness of breath. No headache or dizziness. No nausea or vomiting. Has chronic constipation. On heparin infusion. Plans for high risk CABG week of 08/[address] King Montiel 08/13: No acute events overnight. No chest pain or shortness of breath. No headache or dizziness. The patient was reluctant to get her blood drawn for the PTT, explained to by the nurses. Agreeable. PTT therapeutic. Potassium low, 2.9, replaced On Lasix 40 mg IV daily. Intake and output are not accurate. Walked about 320 feet with physical therapy. 08/14: No acute events overnight. Just anxious, taking her benzodiazepines. On heparin infusion. On diuretics and electrolyte replacement. Plans for high risk CABG week of 08/[address] King Montiel. 08/15: Heparin stopped by Dr. King Montiel. Surgery most likely 08/17. In general doing okay. No chest pain or shortness of breath. No headache or dizziness. Anxious. 08/16: No acute events. No chest pain or shortness of breath. In general feels all right. Plans for high risk CABG 08/[address] King Montiel 08/17: The patient underwent 3V CABG, SCHWARTZ to LAD, saphenous vein graft to the obtuse marginal and saphenous vein graft to the posterior descending artery by Dr King Montiel 08/17/20. EBL 750 cc. Received 2 units of PRBC and 2 Cell Saver. Urine output is good. [address] extubated 08/17 08/18: Was on 2 L of oxygen, wean down to room air. Complete heart block, temporary pacer dependent. EP consulted. [address] 08/19: Patient developed lethargic today after pain medications. On 2 L via NC Temporary pacer dependent. [address] walked 120 feet with PT. tired appearing 08/21: Patient evaluated at bedside and reports that she would like to walk. Denies having any chest pain nausea or vomiting at this time. 08/22: Patient continues to have a Munoz catheter, and magnesium is 1.7 potassium 3.3 which were replaced. Patient sitting on bedside chair. Complete heart block and accelerated junctional underlying if no recovery would benefit from permanent pacemaker 08/23: On 1 L of oxygen via nasal cannula. No chest pain. Feels tired. Underwent 2D echocardiogram today. For permanent pacemaker 08/24 08/24: underwent Direct Left Bundle Dual Chamber Pacemaker Implantation (Jean) by Dr Jared Wilcox. 08/25: Underwent direct left bundle dual-chamber but permanent pacemaker placement with Dr. Jared Wilcox on 08/24. She tolerated the procedure well. She has left pleural effusion, plan is for ultrasound to see if it can be tapped. To start on low-dose beta-blockers today and see how she tolerates them. started on Amiodarone 200 mg Q 12 HOURS FOR 5 days followed by once daily for the total of 3 months. Indication for the above treatment is atrial tachycardia that she developed post pacemaker placement. She will be going to inpatient rehab. : On room air. IMU status. Pain is under good control. Walked with physical therapy 2 laps. Eating better. Plans for [facility] 08/26 -REVIEW OF SYSTEMS- GENERAL: as above -- OBJECTIVE -- VITALS (08/25 18:41 - 18:41): Temperature F: 97.6 (97.4 - 98.7) Temperature source: Oral Pulse Rate 76 (71 - 97) Respiratory rate: 23 (14 - 46) Blood pressure: 116/63 (93/55 - 155/71) Blood pressure source: Monitor I/Os (08/25 07:00 - 07:00): Net 120.00 Intake 1,020.00 Output 900 -EXAM- GENERAL: GENERAL: Elderly female, anxious, not in any acute distress. VITAL SIGNS: Weight is 61.3 kilograms. Body mass index 27.3. HEENT: Head is atraumatic. NECK: Supple. No thyromegaly. No JVD. CARDIOVASCULAR: Regular rate and rhythm. CHEST: sternotomy; 2/2 CTs out; CHIN PPM LUNGS: Coarse BS ABDOMEN: Soft, nondistended, nontender. No organomegaly. EXTREMITIES: No edema, cyanosis, or clubbing. Pedal pulses palpable. NEUROLOGIC: No focal deficit. -- DATA -- MEDICATIONS ACETAMINOPHEN 650 MG RECTAL Q4H PRN ALBUTEROL SULFATE 2.5 MG NEB RTQ6H PRN polyethylene glycoL 3350 1 PKT PO DAILY POTASSIUM CHLORIDE 20 MEQ PO ASDIR PRN carvediloL 6.25 MG PO BID AMIODARONE HCL 200 MG PO Q12HR CALCIUM GLUC IN NACL, ISO-OSM 2 GM IV ASDIR PRN ACETAMINOPHEN 650 MG PO Q4H PRN DOXYCYCLINE MONOHYDRATE 100 MG PO Q12HR ENOXAPARIN 30 MG SUBQ DAILY NITROGLYCERIN 0.4 MG SL Q5M PRN clopidogreL 75 MG PO DAILY SENNOSIDES 1 TAB PO DAILY POTASSIUM CHLORIDE 20 MEQ IV ASDIR (PRN) ASPIRIN 81 MG PO DAILY ATORVASTATIN CALCIUM 80 MG PO BEDTIME SODIUM CHLORIDE 10 mL 10 ML IV ASDIR HYOSCYAMINE SULFATE 0.125 MG PO DAILY PRN bisacodyL 10 MG RECTAL ASDIR PRN CYANOCOBALAMIN 500 MCG PO DAILY DEXTROSE 50%-WATER 25 ML IV ASDIR PRN clonazePAM 0.5 MG PO BEDTIME PRN GLUCAGON 1 MG IM ASDIR PRN SOD BIPHOS/POT PHOSPHATE 2 PKT PO ASDIR (PRN) DOCUSATE SODIUM 200 MG PO DAILY LIDOCAINE 1 PATCH TRANSDERM DAILY ONDANSETRON 4 MG PO Q6H PRN MONTELUKAST SODIUM 10 MG PO DAILY@1800 ONDANSETRON HCL/PF 4 MG IV Q6H PRN bisacodyL 10 MG RECTAL DAILY PRN MAGNESIUM 1 GM IV ASDIR PRN guaiFENesin 100 MG PO Q4H PRN SODIUM BICARBONATE 8.4% 50 MEQ IV .ONCE PRN FERROUS SULFATE 325 MG PO DAILY LABS CBC W/AUTO DIFF (08/26/23 04:47) WHITE BLOOD CELL 7.0 RED BLOOD CELL 3.56 L HEMOGLOBIN 10.1L L HEMATOCRIT 32.8L L MEAN CELL VOLUME 92.1 MEAN CELL HGB 28.4 MEAN CELL HGB CONCENTRATION 30.8 L RED CELL DISTRIBUTION WIDTH 15.3 PLATELET COUNT 377 MEAN PLATELET VOLUME 9.3 NEUTROPHIL % 60.0 LYMPHOCYTE % 24.7 MONOCYTE % 7.9 EOSINOPHIL % 5.5 BASOPHIL % 0.9 NEUTROPHIL # 4.19 LYMPHOCYTE # 1.72 MONOCYTE # 0.55 EOSINOPHIL # 0.38 BASOPHIL # 0.06 PHOS (08/26/23 04:47) PHOSPHOROUS 3.9 BASIC METABOLIC PANEL (08/26/23 04:47) SODIUM 137 POTASSIUM 4.3 CHLORIDE 106 CARBON DIOXIDE 23 GLUCOSE 104 BLOOD UREA NITROGEN 11 GLOMERULAR FILTRATION RATE >=60 max estimate CREATININE 0.60 CALCIUM 9.9 D MAG (08/26/23 04:47) MAGNESIUM 1.9 -- QUALITY -- -MEDICATIONS- - I attest that the foregoing medication list in the medical record is true, accurate, and complete to the best of my knowledge. -- ATTESTATION -- CARE ACTIVITIES / CARE COORDINATION: - I have reviewed the history and repeated the snyder elements - I have seen and examined this patient - I have reviewed the progress in the clinical course since the last examination - I have discussed the patient's condition with other members of the care team Signed in PatientKeeper by Marianne Mckay MD on 08/26/23 at 18:42 at 1842 ATTENTION *EDITS and/or ADDENDA must be made in Patient Keeper for this note. * * Edits and ammendments created in [employer] are not visible * * in Patient Keeper or the legal medical record ([facility]). * RPT #: [id number] END OF REPORT [facility] 2023-08-26 14:18:00 [facility] ([facility]) Intensive Care Progress Note REPORT #: [id number] REPORT STATUS: Signed DATE: 08/26/23 TIME: 1417 PATIENT: ROCK GOMEZ UNIT #: [id number] ROOM #: P.0307 BED: 1 : 36 AGE: 88 SEX: F ATTEND: Marianne Mckay MD ADM AUTHOR: Caitlin Bosch MD ATTENTION *EDITS and/or ADDENDA must be made in Patient Keeper for this note. * * Edits and ammendments created in [employer] are not visible * * in Patient Keeper or the legal medical record ([facility]). * -- ASSESSMENT AND PLAN -- HOSPITAL COURSE TO DATE: Ms. Gomez is an 88 yr old F with a PMHx of HTN, HLD, Asthma, Anxiety, Chronic Bronchitis and CAD s/p Angioplasty in 2011 who was transferred to the CVICU from the OR on 08/17 after CABG X 3 (SCHWARTZ-LAD, rSVG-PDA, rSVG-OM) by Dr. Montiel. 08/24 - u/w PPM placement Uneventful night. Sating well on RA. TOlerating pO intake. WOrking w PT GENERAL ASSESSMENT: I examined her, reviewed her EMR information and data and discussed her plan of care with supporting clinical and ancillary services. Assessment and Plan Neuro * ICU analgesia * H/o Anxiety * Acute postop pain - On Acetaminophen - On prn Clonazepam Pulm * Acute resp insufficiency * H/o Asthma * H/o Chronic bronchitis - Supplemental O2 to keep SPO2 > 94%, sating well on NC - CXR with LLL atelectasis PLEFF - On Cingulair - Pulm Hygiene CVS * H/o mv CAD * S/p CABG X 3 as above * Acute chronotropic incompetence * Atrial tachycardia * LVH * H/o HTN - On ASA, Plavix, Statin, Coreg - Started on Amiodarone - D/w Dr. Montiel who is following GI * Nutrition - Cardiac diet and supplements Renal * Acute prerenal azotemia * Uremic/Hyperchloremic metabolic acidosis * Fluid overload - PRN diuresis, appears euvolemic - Replete elec per ICU protocol Heme * Acute blood loss anemia - Adequate H/h and equilibrating Endo * Euglycemia * H/o HLD - Covering with ISS. - On Statin ID Afebrile without leukocytosis - No overt ID focus - No need for ABx at this point Prophylaxis - SCDs - Lovenox Medications reviewed with the Clinical Pharmacist Full Code per patient preop. No available Advance care guidelines Stable to transfer to IMU/discharged. Hospitalist is following. Will s/o, please call w questions -- OBJECTIVE -- VITALS (08/25 14:18 - 14:18): Temperature F: 97.4 (97.4 - 98.7) Temperature source: Oral Pulse Rate 81 (71 - 120) Respiratory rate: 19 (14 - 46) Blood pressure: 116/63 (91/53 - 155/71) Blood pressure source: Monitor I/Os (08/25 07:00 - 07:00): Net 120.00 Intake 1,020.00 Output 900 COMMENTS: Objective - General - Alert, oriented x2. Heart - RRR, Soft S1 S2, S. murmur II Chest - Decrease air entry on the lower zones w bronchial breathing in the LL zones. No wheezes Abd - Soft, lax, NT, ND, -ve BS LE - Trace LE edema Skin - No rash Neck - Supple, non tender -- DATA -- MEDICATIONS ACETAMINOPHEN 650 MG RECTAL Q4H PRN LIDOCAINE 1 PATCH TRANSDERM DAILY ALBUTEROL SULFATE 2.5 MG NEB RTQ6H PRN polyethylene glycoL 3350 1 PKT PO DAILY POTASSIUM CHLORIDE 20 MEQ PO ASDIR PRN carvediloL 6.25 MG PO BID AMIODARONE HCL 200 MG PO Q12HR CALCIUM GLUC IN NACL, ISO-OSM 2 GM IV ASDIR PRN ACETAMINOPHEN 650 MG PO Q4H PRN DOXYCYCLINE MONOHYDRATE 100 MG PO Q12HR ENOXAPARIN 30 MG SUBQ DAILY NITROGLYCERIN 0.4 MG SL Q5M PRN clopidogreL 75 MG PO DAILY SENNOSIDES 1 TAB PO DAILY POTASSIUM CHLORIDE 20 MEQ IV ASDIR (PRN) ASPIRIN 81 MG PO DAILY ATORVASTATIN CALCIUM 80 MG PO BEDTIME SODIUM CHLORIDE 10 mL 10 ML IV ASDIR HYOSCYAMINE SULFATE 0.125 MG PO DAILY PRN bisacodyL 10 MG RECTAL ASDIR PRN CYANOCOBALAMIN 500 MCG PO DAILY DEXTROSE 50%-WATER 25 ML IV ASDIR PRN clonazePAM 0.5 MG PO BEDTIME PRN GLUCAGON 1 MG IM ASDIR PRN SOD BIPHOS/POT PHOSPHATE 2 PKT PO ASDIR (PRN) DOCUSATE SODIUM 200 MG PO DAILY ONDANSETRON 4 MG PO Q6H PRN MONTELUKAST SODIUM 10 MG PO DAILY@1800 ONDANSETRON HCL/PF 4 MG IV Q6H PRN bisacodyL 10 MG RECTAL DAILY PRN MAGNESIUM 1 GM IV ASDIR PRN guaiFENesin 100 MG PO Q4H PRN SODIUM BICARBONATE 8.4% 50 MEQ IV .ONCE PRN FERROUS SULFATE 325 MG PO DAILY LABS CBC W/AUTO DIFF (08/26/23 04:47) WHITE BLOOD CELL 7.0 RED BLOOD CELL 3.56 L HEMOGLOBIN 10.1L L HEMATOCRIT 32.8L L MEAN CELL VOLUME 92.1 MEAN CELL HGB 28.4 MEAN CELL HGB CONCENTRATION 30.8 L RED CELL DISTRIBUTION WIDTH 15.3 PLATELET COUNT 377 MEAN PLATELET VOLUME 9.3 NEUTROPHIL % 60.0 LYMPHOCYTE % 24.7 MONOCYTE % 7.9 EOSINOPHIL % 5.5 BASOPHIL % 0.9 NEUTROPHIL # 4.19 LYMPHOCYTE # 1.72 MONOCYTE # 0.55 EOSINOPHIL # 0.38 BASOPHIL # 0.06 PHOS (08/26/23 04:47) PHOSPHOROUS 3.9 BASIC METABOLIC PANEL (08/26/23 04:47) SODIUM 137 POTASSIUM 4.3 CHLORIDE 106 CARBON DIOXIDE 23 GLUCOSE 104 BLOOD UREA NITROGEN 11 GLOMERULAR FILTRATION RATE >=60 max estimate CREATININE 0.60 CALCIUM 9.9 D MAG (08/26/23 04:47) MAGNESIUM 1.9 -- ATTESTATION -- CARE ACTIVITIES / CARE COORDINATION: - I have reviewed the history and repeated the snyder elements - I have seen and examined this patient - I have reviewed the progress in the clinical course since the last examination - I have discussed the patient's condition with other members of the care team Signed in PatientKeeper by Caitlin Bosch MD on 08/26/23 at 17:01 at 1701 ATTENTION *EDITS and/or ADDENDA must be made in Patient Keeper for this note. * * Edits and ammendments created in [facility] are not visible * * in Patient Keeper or the legal medical record ([facility]). * RPT #: [id number] END OF REPORT [facility] 2023-08-26 11:34:00 [facility] ([facility]) Cardiology Progress Notes REPORT #: [id number] REPORT STATUS: Signed DATE: 08/26/23 TIME: 1134 PATIENT: ROCK GOMEZ UNIT #: [id number] ROOM #: [id number] BED: A : 36 AGE: 88 SEX: F ATTEND: Marianne Mckay MD ADM AUTHOR: Venus Junior MD CF1 ATTENTION *EDITS and/or ADDENDA must be made in Patient Keeper for this note. * * Edits and ammendments created in [employer] are not visible * * in Patient Keeper or the legal medical record ([facility]). * -- CO-SIGNATURE -- COMMENTS: I obtained the history and performed the physical examination in supervision of Venus Junior MD. I concur with his findings with the following additions: NAEON.. Gen: NAD, A+Ox3 HEENT: anicteric sclera,MMM Neck: suppple, no JVD CV: RRR, aud s1/s2, no m/r/g Lungs: CTAB Abd: Soft, nondistended/nontender Neuro: Non-focal Psych: Alert, appropriate, mood and affect normal The plan is CHB -s/p DC PPM (Jean) -f/u 2weeks as outpatient Atrial Tachycardia -Contniue amio Time spent on patient care: I spent > 30 minutes on patient care, including 15 minutes spent jointly with Venus Junior MD. > 50% of time spent on counseling/coordination of care Jared Wilcox MD Cardiac Vice President And Portfolio Manager [place] Cardiac Arrhythmia Signed in PatientKeeper by JARED WILCOX MD on 09/04/23 at 08:41 -- ASSESSMENT AND PLAN -- GENERAL ASSESSMENT: Miss. Gomez is an 88 years old lady who is s/p CABG X 3 with significant post CABG complete heart block, s/p PPM by EP on 08/24 --> At ---> Amiodarone ---> doing well, plan for transition to IMU. PROBLEMS: 1: Complete heart block, post-surgical A/P: -POD #9 with complete heart block and accelerated junctional underlying -Remained on temporary pacemaker until 08/24/2023 -S/P PPM on 08/24/2023 with ASVP programming. -Device interrogated this morning; --> Tracking the atrial well. 08/25 Atrial tachycardia ---> Started on Amiodarone 200 mg BID -HR this morning above 80 intrinsic. -Pocket site without hematoma, swelling, discharge and clean, dry and intact. -Continue Minocycline 100 mg BID x 7 days (3/7 day today ) -Case discussed with Dr. Wilcox. -- SUBJECTIVE -- CHIEF COMPLAINT: Follow up on PPM HPI: S/P PPM on 08/25 developed atrial tachycardia on top on her base rate, started on Amiodarone 200mg X2 X 5 days followed by once daily with plan to continue for 3 months. -- OBJECTIVE -- VITALS (08/25 11:34 - 11:34): Temperature F: 97.4 (97.4 - 98.7) Temperature source: Oral Pulse Rate 92 (71 - 120) Respiratory rate: 30 (14 - 46) Blood pressure: 132/70 (91/53 - 155/71) Blood pressure source: Monitor I/Os (08/25 07:00 - 07:00): Net 120.00 Intake 1,020.00 Output 900 -EXAM- GENERAL: Well developed, well nourished, in no apparent distress. HEAD: Normocephalic, atraumatic. MOUTH: Oropharynx without deformities or lesions, normal mucosa.. NECK: No masses, no thyromegaly, no abnormal cervical nodes, trachea midline. CHEST: Grossly normal appearance. mid-sternotomy wound clear and intact. LUNGS: Clear bilaterally with normal respiratory effort. HEART: Regular rate and rhythm, normal S1, S2, no murmurs, no rubs, no gallops, no clicks. ABDOMEN: Soft, non-tender, no organomegaly, no masses noted. MUSCULOSKELETAL: No deformity, no scoliosis noted of thoracic or lumbar spine, joint ROM grossly normal, normal gait and station. EXTREMITIES: No clubbing, no cyanosis, no edema. NEUROLOGICAL: No focal deficits, cranial nerves II-XII grossly intact, normal sensation, normal reflexes, normal coordination, normal muscle strength, normal tone. PULSES: Pulses normal in all extremities. -- DATA -- MEDICATIONS ACETAMINOPHEN 650 MG RECTAL Q4H PRN LIDOCAINE 1 PATCH TRANSDERM DAILY ALBUTEROL SULFATE 2.5 MG NEB RTQ6H PRN polyethylene glycoL 3350 1 PKT PO DAILY POTASSIUM CHLORIDE 20 MEQ PO ASDIR PRN carvediloL 6.25 MG PO BID AMIODARONE HCL 200 MG PO Q12HR CALCIUM GLUC IN NACL, ISO-OSM 2 GM IV ASDIR PRN ACETAMINOPHEN 650 MG PO Q4H PRN DOXYCYCLINE MONOHYDRATE 100 MG PO Q12HR ENOXAPARIN 30 MG SUBQ DAILY NITROGLYCERIN 0.4 MG SL Q5M PRN clopidogreL 75 MG PO DAILY SENNOSIDES 1 TAB PO DAILY POTASSIUM CHLORIDE 20 MEQ IV ASDIR (PRN) ASPIRIN 81 MG PO DAILY ACETAMINOPHEN 1000 MG IV Q6H (PRN) ATORVASTATIN CALCIUM 80 MG PO BEDTIME SODIUM CHLORIDE 10 mL 10 ML IV ASDIR HYOSCYAMINE SULFATE 0.125 MG PO DAILY PRN bisacodyL 10 MG RECTAL ASDIR PRN CYANOCOBALAMIN 500 MCG PO DAILY DEXTROSE 50%-WATER 25 ML IV ASDIR PRN clonazePAM 0.5 MG PO BEDTIME PRN GLUCAGON 1 MG IM ASDIR PRN SOD BIPHOS/POT PHOSPHATE 2 PKT PO ASDIR (PRN) DOCUSATE SODIUM 200 MG PO DAILY ONDANSETRON 4 MG PO Q6H PRN MONTELUKAST SODIUM 10 MG PO DAILY@1800 ONDANSETRON HCL/PF 4 MG IV Q6H PRN bisacodyL 10 MG RECTAL DAILY PRN MAGNESIUM 1 GM IV ASDIR PRN guaiFENesin 100 MG PO Q4H PRN SODIUM BICARBONATE 8.4% 50 MEQ IV .ONCE PRN FERROUS SULFATE 325 MG PO DAILY LABS CBC W/AUTO DIFF (08/26/23 04:47) WHITE BLOOD CELL 7.0 RED BLOOD CELL 3.56 L HEMOGLOBIN 10.1L L HEMATOCRIT 32.8L L MEAN CELL VOLUME 92.1 MEAN CELL HGB 28.4 MEAN CELL HGB CONCENTRATION 30.8 L RED CELL DISTRIBUTION WIDTH 15.3 PLATELET COUNT 377 MEAN PLATELET VOLUME 9.3 NEUTROPHIL % 60.0 LYMPHOCYTE % 24.7 MONOCYTE % 7.9 EOSINOPHIL % 5.5 BASOPHIL % 0.9 NEUTROPHIL # 4.19 LYMPHOCYTE # 1.72 MONOCYTE # 0.55 EOSINOPHIL # 0.38 BASOPHIL # 0.06 PHOS (08/26/23 04:47) PHOSPHOROUS 3.9 BASIC METABOLIC PANEL (08/26/23 04:47) SODIUM 137 POTASSIUM 4.3 CHLORIDE 106 CARBON DIOXIDE 23 GLUCOSE 104 BLOOD UREA NITROGEN 11 GLOMERULAR FILTRATION RATE >=60 max estimate CREATININE 0.60 CALCIUM 9.9 D MAG (08/26/23 04:47) MAGNESIUM 1.9 Signed in PatientKeeper by VENUS JUNIOR MD CF1 on 08/26/23 at 23:24 Cosigned by JARED WILCOX MD on 09/04/23 at 08:41 at 0841 at 0841 ATTENTION *EDITS and/or ADDENDA must be made in Patient Keeper for this note. * * Edits and ammendments created in [employer] are not visible * * in Patient Keeper or the legal medical record ([facility]). * RPT #: [id number] END OF REPORT [facility] 2023-08-26 08:47:00 [facility] ([facility]) Progress Note REPORT #: [id number] REPORT STATUS: Signed DATE: 08/26/23 TIME: 846 PATIENT: ROCK GOMEZ UNIT #: [id number] ROOM #: P.[id number] BED: 1 : 36 AGE: 88 SEX: F ATTEND: Marianne Mckay MD ADM AUTHOR: Clinton De La Rosa MD ATTENTION *EDITS and/or ADDENDA must be made in Patient Keeper for this note. * * Edits and ammendments created in [employer] are not visible * * in Patient Keeper or the legal medical record ([facility]). * -- ASSESSMENT AND PLAN -- PROBLEMS: 1: NSTEMI (non-ST elevated myocardial infarction) A/P: Underwent CABG x 3 on 08/17/23. Transfused 2 RBC units and 2 cell saver units. - Monitor patient for any bleeding episodes. - Continue ASA and Plavix - Continue ferrous sulfate 325 mg PO daily. - Continue anticoagulation for DVT prophylaxis (subcutaneous Lovenox) - Monitor urine output volume/color. - Check CBC, PTT, INR, and Fibrinogen daily. - Follow up with Cardiac surgery recs. - Encourage rehab/ambulation as tolerated. Follow up with PT/OT recs. -- SUBJECTIVE -- HPI: On 2L oxygen support. Net positive fluid balance over past 24 hours. Munoz catheter removed. Platelets and hemoglobin at target. -REVIEW OF SYSTEMS- EYES: Negative for blurry vision. No diplopia. EARS/NOSE/THROAT: Negative for sore throat. No otalgia. No rhinorrhea. RESPIRATORY: Negative for dyspnea or wheeze. No cough. CARDIOVASCULAR: Negative for chest pain or palpitations. No extremity swelling. GASTROINTESTINAL: Negative for abdominal pain or nausea. No emesis. No diarrhea. NEUROLOGICAL: Negative for headache. No vertigo. Denies paresthesias. PSYCHIATRIC: Negative for specific complaints. COMMENT: No chest pain or palpitations. -- OBJECTIVE -- VITALS (08/25 08:47 - 08:47): Temperature F: 98.7 (97.8 - 98.7) Temperature source: Oral Pulse Rate 75 (71 - 120) Respiratory rate: 22 (20 - 40) Blood pressure: 146/71 (91/53 - 167/85) Blood pressure source: Monitor I/Os (08/25 07:00 - 07:00): Net 120.00 Intake 1,020.00 Output 900 -EXAM- GENERAL: Well developed, well nourished, in no apparent distress. HEAD: Normocephalic, atraumatic. MOUTH: Oropharynx without deformities or lesions, normal mucosa.. NECK: No masses, no thyromegaly, no abnormal cervical nodes, trachea midline. CHEST: Grossly normal appearance. LUNGS: Clear bilaterally with normal respiratory effort. HEART: Regular rate and rhythm, normal S1, S2, no murmurs, no rubs, no gallops, no clicks. ABDOMEN: Soft, non-tender, no organomegaly, no masses noted. MUSCULOSKELETAL: No deformity, no scoliosis noted of thoracic or lumbar spine, joint ROM grossly normal, normal gait and station. EXTREMITIES: No clubbing, no cyanosis, no edema. NEUROLOGICAL: No focal deficits, cranial nerves II-XII grossly intact, normal sensation, normal reflexes, normal coordination, normal muscle strength, normal tone. PULSES: Pulses normal in all extremities. -- DATA -- MEDICATIONS ACETAMINOPHEN 650 MG RECTAL Q4H PRN LIDOCAINE 1 PATCH TRANSDERM DAILY ALBUTEROL SULFATE 2.5 MG NEB RTQ6H PRN polyethylene glycoL 3350 1 PKT PO DAILY POTASSIUM CHLORIDE 20 MEQ PO ASDIR PRN carvediloL 6.25 MG PO BID AMIODARONE HCL 200 MG PO Q12HR CALCIUM GLUC IN NACL, ISO-OSM 2 GM IV ASDIR PRN ACETAMINOPHEN 650 MG PO Q4H PRN DOXYCYCLINE MONOHYDRATE 100 MG PO Q12HR ENOXAPARIN 30 MG SUBQ DAILY NITROGLYCERIN 0.4 MG SL Q5M PRN clopidogreL 75 MG PO DAILY SENNOSIDES 1 TAB PO DAILY POTASSIUM CHLORIDE 20 MEQ IV ASDIR (PRN) ASPIRIN 81 MG PO DAILY ACETAMINOPHEN 1000 MG IV Q6H (PRN) ATORVASTATIN CALCIUM 80 MG PO BEDTIME SODIUM CHLORIDE 10 mL 10 ML IV ASDIR HYOSCYAMINE SULFATE 0.125 MG PO DAILY PRN bisacodyL 10 MG RECTAL ASDIR PRN CYANOCOBALAMIN 500 MCG PO DAILY DEXTROSE 50%-WATER 25 ML IV ASDIR PRN clonazePAM 0.5 MG PO BEDTIME PRN GLUCAGON 1 MG IM ASDIR PRN SOD BIPHOS/POT PHOSPHATE 2 PKT PO ASDIR (PRN) DOCUSATE SODIUM 200 MG PO DAILY ONDANSETRON 4 MG PO Q6H PRN MONTELUKAST SODIUM 10 MG PO DAILY@1800 ONDANSETRON HCL/PF 4 MG IV Q6H PRN bisacodyL 10 MG RECTAL DAILY PRN MAGNESIUM 1 GM IV ASDIR PRN guaiFENesin 100 MG PO Q4H PRN SODIUM BICARBONATE 8.4% 50 MEQ IV .ONCE PRN FERROUS SULFATE 325 MG PO DAILY LABS CBC W/AUTO DIFF (08/26/23 04:47) WHITE BLOOD CELL 7.0 RED BLOOD CELL 3.56 L HEMOGLOBIN 10.1L L HEMATOCRIT 32.8L L MEAN CELL VOLUME 92.1 MEAN CELL HGB 28.4 MEAN CELL HGB CONCENTRATION 30.8 L RED CELL DISTRIBUTION WIDTH 15.3 PLATELET COUNT 377 MEAN PLATELET VOLUME 9.3 NEUTROPHIL % 60.0 LYMPHOCYTE % 24.7 MONOCYTE % 7.9 EOSINOPHIL % 5.5 BASOPHIL % 0.9 NEUTROPHIL # 4.19 LYMPHOCYTE # 1.72 MONOCYTE # 0.55 EOSINOPHIL # 0.38 BASOPHIL # 0.06 PHOS (08/26/23 04:47) PHOSPHOROUS 3.9 BASIC METABOLIC PANEL (08/26/23 04:47) SODIUM 137 POTASSIUM 4.3 CHLORIDE 106 CARBON DIOXIDE 23 GLUCOSE 104 BLOOD UREA NITROGEN 11 GLOMERULAR FILTRATION RATE >=60 max estimate CREATININE 0.60 CALCIUM 9.9 D MAG (08/26/23 04:47) MAGNESIUM 1.9 -- ATTESTATION -- TIME SPENT ON PATIENT CARE: - Direct 35 minutes CARE ACTIVITIES / CARE COORDINATION: - I have reviewed the history and repeated the snyder elements - I have seen and examined this patient - I have reviewed the progress in the clinical course since the last examination - I have discussed the patient's condition with other members of the care team Signed in PatientKeeper by Clinton De La Rosa MD on 08/26/23 at 08:48 at 0848 ATTENTION *EDITS and/or ADDENDA must be made in Patient Keeper for this note. * * Edits and ammendments created in [employer] are not visible * * in Patient Keeper or the legal medical record ([facility]). * RPT #: [id number] END OF REPORT [facility] 2023-08-26 07:11:00 [facility] ([facility]) Cardiology Progress Notes REPORT #: [id number] REPORT STATUS: Signed DATE: 08/26/23 TIME: 710 PATIENT: ROCK GOMEZ UNIT #: [id number] ROOM #: [id number] BED: A : 36 AGE: 88 SEX: F ATTEND: Marianne Mckay MD ADM AUTHOR: Wing,Hytham DO CF1 ATTENTION *EDITS and/or ADDENDA must be made in Patient Keeper for this note. * * Edits and ammendments created in [employer] are not visible * * in Patient Keeper or the legal medical record ([facility]). 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 S/p PPM-complete heart block-postoperative Patient is progressing well postoperatively Continue aspirin Plavix and Lipitor Plan to DC to rehab today I devoted my full attention for this service to the direct care of this patient Life threatening disease due to s/p CABG during this admission Organ systems impaired or failing: Cardiac I have reviewed the history and repeated the snyder elements I have reviewed the progress in the clinical course since the last examination I have discussed the patient's condition with other consultants and members of the care team I have independently interpreted available diagnostic studies (EKG CXR Echo Cardiac cath) Signed in PatientKeeper by GEETHA PINTO MD on 08/27/23 at 13:51 -- ASSESSMENT AND PLAN -- HOSPITAL COURSE TO DATE: - 08/11 NSTEMI, downgraded to IMU --- - 08/17 s/p [id number] (SCHWARTZ to LAD, SVG to OM1, SVG to PDA, 08/17/2023, Dr. Montiel); postop CHB - 08/18: persistent CHB, TPW in place - 08/19: persistent CHB, TPW in placed - 08/23: persistent CHB, EP consulted, plan for ppm 08/24, NPOaMN - 08/24: s/p PPM, interrogation in AM - 08/25: atrial tachycardia, start amio - : NSR, stable for discharge from cardiac standpoint GENERAL ASSESSMENT: The patient is an 88-year-old female (patient of Dr. Gianna Ambrose) has a PMHx of coronary artery disease (s/p PCI with 3 ALEC), family history of coronary artery disease, carotid artery disease, hypertension, hyperlipidemia, h/o nicotine use, asthma, chronic bronchitis, anxiety. She has been having chest pressure radiating to her jaw and shortness of breath for the past 3 weeks. She was evaluated by her medical clinic manager, had stress test on 07/28/2023 what was abnormal, showed cardiomyopathy, an EF of 34%, severe inferolateral, posterolateral ischemia. Echocardiogram (06/2023) showed an EF 55-60%, moderate MR. She had coronary angiogram on 07/31/23 and showed three vessel coronary artery disease, torturous aorta with small abdominal aortic aneurysm. elevated LVEDP that is not amenable for PCI. She was evaluated by CV surgery, Dr. Montiel, for CABG. She presented at an outside hospital with complaint of chest pain radiating to her left jaw, diaphoresis and she was ruled in NSTEMI. She was transferred [facility] to [facility] for higher level of care. Chest x-ray showed interstitial and basilar airspace edema/infiltrates, cardiomegaly. Blood work showed troponin of 534.3, BNP 539, Mg 1.3. She denies chest pain, shortness of breath, palpitations now. Cardiology consulted for MVCAD. s/p CABG 08/17. s/p ppm for CHB 08/24. Stable for dc from cardiac standpoint. PROBLEMS: 1: NSTEMI (non-ST elevated myocardial infarction) A/P: - s/p [id number] (SCHWARTZ to LAD, SVG to OM1, SVG to PDA, 08/17/2023, Dr. Montiel) - TTE 08/09/2023 LVEF 40-44%, moderate MR -- repeat TTE 08/23 prelim read: LVEF >50%, no regional wall motion abnormalities - CT chest w/o contrast showed RUL PNA, Right pleural effusion, Plate-like atelectasis in the lower lobes. - On aspirin 81mg qd, clopidogrel 75mg qd, atorvastatin 80mg qd -- holding BB due to complete heart block - chest tube management per CT surgery - PT/OT/IS - cont to monitor and replete electrolytes - cleared for discharge to rehab from cardiology standpoint, follow up outpt 2: CAD (coronary artery disease) A/P: - s/p h/o PCI 2011 - s/p [id number] (SCHWARTZ to LAD, SVG to OM1, SVG to PDA, 08/17/2023, Dr. Montiel) - On aspirin 81mg qd, clopidogrel 75mg qd, atorvastatin 80mg qd -- starting BB with lower dose coreg 6.25mg po bid - monitor on tele 3: Complete heart block, post-surgical A/P: - possible myocardial stunning postop - monitor on tele - TPW pacing - EP consulted, s/p ppm 08/24, as above 4: Pleural effusion A/P: - monitor, per primary 5: Atrial tachycardia A/P: - atrial tachycardia - EP following - cont po amio -- SUBJECTIVE -- CHIEF COMPLAINT: AMELIA this AM. SAUNDRA overnight. s/p CABG and ppm. No new complaints.. Tele: NSR 81bpm -REVIEW OF SYSTEMS- COMMENT: 10 point ROS negative unless noted. -- OBJECTIVE -- VITALS (08/25 07:11 - 07:11): Temperature F: 98.7 (97.0 - 98.7) Temperature source: Oral Pulse Rate 75 (71 - 120) Respiratory rate: 22 (20 - 40) Blood pressure: 146/71 (91/53 - 167/85) Blood pressure source: Monitor I/Os (08/25 07:00 - 07:00): Net 120.00 Intake 1,020.00 Output 900 -EXAM- GENERAL: Well developed, well nourished, in no apparent distress. MOUTH: Oropharynx without deformities or lesions, normal mucosa. CHEST: sternotomy site dressing c/d/i; + ppm LUNGS: Clear bilaterally with normal respiratory effort. HEART: tachycardia, normal S1, S2, no murmurs ABDOMEN: Soft, non-tender EXTREMITIES: No clubbing, no cyanosis, no edema. NEUROLOGICAL: No focal deficits, cranial nerves II-XII grossly intact PULSES: Pulses normal in all extremities. SKIN: Intact without significant lesions, or rashes. PSYCHIATRIC: Alert and oriented to time, person, place. Normal mood and affect, intact judgment and insight. -- DATA -- MEDICATIONS ACETAMINOPHEN 650 MG RECTAL Q4H PRN LIDOCAINE 1 PATCH TRANSDERM DAILY ALBUTEROL SULFATE 2.5 MG NEB RTQ6H PRN polyethylene glycoL 3350 1 PKT PO DAILY POTASSIUM CHLORIDE 20 MEQ PO ASDIR PRN carvediloL 6.25 MG PO BID AMIODARONE HCL 200 MG PO Q12HR CALCIUM GLUC IN NACL, ISO-OSM 2 GM IV ASDIR PRN ACETAMINOPHEN 650 MG PO Q4H PRN DOXYCYCLINE MONOHYDRATE 100 MG PO Q12HR ENOXAPARIN 30 MG SUBQ DAILY NITROGLYCERIN 0.4 MG SL Q5M PRN clopidogreL 75 MG PO DAILY SENNOSIDES 1 TAB PO DAILY POTASSIUM CHLORIDE 20 MEQ IV ASDIR (PRN) ASPIRIN 81 MG PO DAILY ACETAMINOPHEN 1000 MG IV Q6H (PRN) ATORVASTATIN CALCIUM 80 MG PO BEDTIME SODIUM CHLORIDE 10 mL 10 ML IV ASDIR HYOSCYAMINE SULFATE 0.125 MG PO DAILY PRN bisacodyL 10 MG RECTAL ASDIR PRN CYANOCOBALAMIN 500 MCG PO DAILY DEXTROSE 50%-WATER 25 ML IV ASDIR PRN clonazePAM 0.5 MG PO BEDTIME PRN GLUCAGON 1 MG IM ASDIR PRN SOD BIPHOS/POT PHOSPHATE 2 PKT PO ASDIR (PRN) DOCUSATE SODIUM 200 MG PO DAILY ONDANSETRON 4 MG PO Q6H PRN MONTELUKAST SODIUM 10 MG PO DAILY@1800 ONDANSETRON HCL/PF 4 MG IV Q6H PRN bisacodyL 10 MG RECTAL DAILY PRN MAGNESIUM 1 GM IV ASDIR PRN guaiFENesin 100 MG PO Q4H PRN SODIUM BICARBONATE 8.4% 50 MEQ IV .ONCE PRN FERROUS SULFATE 325 MG PO DAILY LABS CBC W/AUTO DIFF (08/26/23 04:47) WHITE BLOOD CELL 7.0 RED BLOOD CELL 3.56 L HEMOGLOBIN 10.1L L HEMATOCRIT 32.8L L MEAN CELL VOLUME 92.1 MEAN CELL HGB 28.4 MEAN CELL HGB CONCENTRATION 30.8 L RED CELL DISTRIBUTION WIDTH 15.3 PLATELET COUNT 377 MEAN PLATELET VOLUME 9.3 NEUTROPHIL % 60.0 LYMPHOCYTE % 24.7 MONOCYTE % 7.9 EOSINOPHIL % 5.5 BASOPHIL % 0.9 NEUTROPHIL # 4.19 LYMPHOCYTE # 1.72 MONOCYTE # 0.55 EOSINOPHIL # 0.38 BASOPHIL # 0.06 PHOS (08/26/23 04:47) PHOSPHOROUS 3.9 BASIC METABOLIC PANEL (08/26/23 04:47) SODIUM 137 POTASSIUM 4.3 CHLORIDE 106 CARBON DIOXIDE 23 GLUCOSE 104 BLOOD UREA NITROGEN 11 GLOMERULAR FILTRATION RATE >=60 max estimate CREATININE 0.60 CALCIUM 9.9 D MAG (08/26/23 04:47) MAGNESIUM 1.9 Signed in PatientKeeper by LISA WING DO [facility] on 08/26/23 at 18:37 Cosigned by GEETHA PINTO MD on 08/27/23 at 13:51 at 1351 at 1351 ATTENTION *EDITS and/or ADDENDA must be made in Patient Keeper for this note. * * Edits and ammendments created in [facility] are not visible * * in Patient Keeper or the legal medical record ([facility]). * RPT #: [id number] END OF REPORT [facility] 2023-08-25 14:06:00 [facility] ([facility]) Progress Note REPORT #: [id number] REPORT STATUS: Signed DATE: 08/25/23 TIME: 1405 PATIENT: ROCK GOMEZ UNIT #: [id number] ROOM #: P.[facility] BED: 1 : 36 AGE: 88 SEX: F ATTEND: Marianne Mckay MD ADM AUTHOR: Clinton De La Rosa MD ATTENTION *EDITS and/or ADDENDA must be made in Patient Keeper for this note. * * Edits and ammendments created in [employer] are not visible * * in Patient Keeper or the legal medical record ([facility]). * -- ASSESSMENT AND PLAN -- PROBLEMS: 1: NSTEMI (non-ST elevated myocardial infarction) A/P: Underwent CABG x 3 on 08/17/23. Transfused 2 RBC units and 2 cell saver units. - Monitor patient for any bleeding episodes. - Continue ASA and Plavix - Continue ferrous sulfate 325 mg PO daily. - Continue anticoagulation for DVT prophylaxis (subcutaneous Lovenox) - Monitor urine output volume/color. - Check CBC, PTT, INR, and Fibrinogen daily. - Follow up with Cardiac surgery recs. - Encourage rehab/ambulation as tolerated. Follow up with PT/OT recs. -- SUBJECTIVE -- HPI: On 2L oxygen support. Net negative fluid balance over past 24 hours. Munoz catheter removed. Platelets and hemoglobin at target. -REVIEW OF SYSTEMS- EYES: Negative for blurry vision. No diplopia. EARS/NOSE/THROAT: Negative for sore throat. No otalgia. No rhinorrhea. RESPIRATORY: Negative for dyspnea or wheeze. No cough. CARDIOVASCULAR: Negative for chest pain or palpitations. No extremity swelling. GASTROINTESTINAL: Negative for abdominal pain or nausea. No emesis. No diarrhea. NEUROLOGICAL: Negative for headache. No vertigo. Denies paresthesias. PSYCHIATRIC: Negative for specific complaints. COMMENT: No chest pain or palpitations. -- OBJECTIVE -- VITALS (08/24 14:06 - 08/25 14:06): Temperature F: 98.2 (97.0 - 98.6) Temperature source: Oral Pulse Rate 93 (80 - 120) Respiratory rate: 35 (16 - 52) Blood pressure: 109/63 (103/53 - 174/85) Blood pressure source: Monitor I/Os (08/24 07:00 - 08/25 07:00): Net -380.00 Intake 420.00 Output 800 -EXAM- GENERAL: Well developed, well nourished, in no apparent distress. HEAD: Normocephalic, atraumatic. MOUTH: Oropharynx without deformities or lesions, normal mucosa.. NECK: No masses, no thyromegaly, no abnormal cervical nodes, trachea midline. CHEST: Grossly normal appearance. LUNGS: Clear bilaterally with normal respiratory effort. HEART: Regular rate and rhythm, normal S1, S2, no murmurs, no rubs, no gallops, no clicks. ABDOMEN: Soft, non-tender, no organomegaly, no masses noted. MUSCULOSKELETAL: No deformity, no scoliosis noted of thoracic or lumbar spine, joint ROM grossly normal, normal gait and station. EXTREMITIES: No clubbing, no cyanosis, no edema. NEUROLOGICAL: No focal deficits, cranial nerves II-XII grossly intact, normal sensation, normal reflexes, normal coordination, normal muscle strength, normal tone. PULSES: Pulses normal in all extremities. -- DATA -- MEDICATIONS ACETAMINOPHEN 650 MG RECTAL Q4H PRN LIDOCAINE 1 PATCH TRANSDERM DAILY ALBUTEROL SULFATE 2.5 MG NEB RTQ6H PRN polyethylene glycoL 3350 1 PKT PO DAILY POTASSIUM CHLORIDE 20 MEQ PO ASDIR PRN CALCIUM GLUC IN NACL, ISO-OSM 2 GM IV ASDIR PRN ACETAMINOPHEN 650 MG PO Q4H PRN DOXYCYCLINE MONOHYDRATE 100 MG PO Q12HR ENOXAPARIN 30 MG SUBQ DAILY NITROGLYCERIN 0.4 MG SL Q5M PRN clopidogreL 75 MG PO DAILY SENNOSIDES 1 TAB PO DAILY POTASSIUM CHLORIDE 20 MEQ IV ASDIR (PRN) ASPIRIN 81 MG PO DAILY ATORVASTATIN CALCIUM 80 MG PO BEDTIME SODIUM CHLORIDE 10 mL 10 ML IV ASDIR HYOSCYAMINE SULFATE 0.125 MG PO DAILY PRN bisacodyL 10 MG RECTAL ASDIR PRN CYANOCOBALAMIN 500 MCG PO DAILY DEXTROSE 50%-WATER 25 ML IV ASDIR PRN clonazePAM 0.5 MG PO BEDTIME PRN GLUCAGON 1 MG IM ASDIR PRN SOD BIPHOS/POT PHOSPHATE 2 PKT PO ASDIR (PRN) carvediloL 3.125 MG PO BID DOCUSATE SODIUM 200 MG PO DAILY ONDANSETRON 4 MG PO Q6H PRN MONTELUKAST SODIUM 10 MG PO DAILY@1800 ONDANSETRON HCL/PF 4 MG IV Q6H PRN bisacodyL 10 MG RECTAL DAILY PRN MAGNESIUM 1 GM IV ASDIR PRN guaiFENesin 100 MG PO Q4H PRN ACETAMINOPHEN 1000 MG IV Q6H SODIUM BICARBONATE 8.4% 50 MEQ IV .ONCE PRN FERROUS SULFATE 325 MG PO DAILY LABS PHOS (08/25/23 04:18) PHOSPHOROUS 3.6 CBC W/AUTO DIFF (08/25/23 04:18) WHITE BLOOD CELL 8.7 RED BLOOD CELL 3.48 L HEMOGLOBIN 9.9L L HEMATOCRIT 32.0L L MEAN CELL VOLUME 92.0 MEAN CELL HGB 28.4 MEAN CELL HGB CONCENTRATION 30.9 L RED CELL DISTRIBUTION WIDTH 15.4 PLATELET COUNT 330 MEAN PLATELET VOLUME 9.3 NEUTROPHIL % 71.4 LYMPHOCYTE % 15.5 L MONOCYTE % 7.4 EOSINOPHIL % 4.2 BASOPHIL % 0.3 NEUTROPHIL # 6.19 LYMPHOCYTE # 1.34 MONOCYTE # 0.64 EOSINOPHIL # 0.36 BASOPHIL # 0.03 BASIC METABOLIC PANEL (08/25/23 04:18) SODIUM 139 POTASSIUM 3.7 CHLORIDE 107 CARBON DIOXIDE 24 GLUCOSE 114H H BLOOD UREA NITROGEN 12 GLOMERULAR FILTRATION RATE >=60 max estimate CREATININE 0.60 CALCIUM 8.5 L MAG (08/25/23 04:18) MAGNESIUM 1.9 -- ATTESTATION -- TIME SPENT ON PATIENT CARE: - Direct 35 minutes CARE ACTIVITIES / CARE COORDINATION: - I have reviewed the history and repeated the snyder elements - I have seen and examined this patient - I have reviewed the progress in the clinical course since the last examination - I have discussed the patient's condition with other members of the care team Signed in PatientKeeper by Clinton De La Rosa MD on 08/25/23 at 14:09 at 1409 ATTENTION *EDITS and/or ADDENDA must be made in Patient Keeper for this note. * * Edits and ammendments created in [employer] are not visible * * in Patient Keeper or the legal medical record ([facility]). * RPT #: [id number] END OF REPORT [facility] 2023-08-25 11:54:00 [facility] ([facility]) Cardiology Progress Notes REPORT #: [id number] REPORT STATUS: Signed DATE: 08/25/23 TIME: 1154 PATIENT: ROCK GOMEZ UNIT #: [id number] ROOM #: [id number] BED: A : 36 AGE: 88 SEX: F ATTEND: Marianne Mckay MD ADM AUTHOR: Lisa Wing DO [facility] ATTENTION *EDITS and/or ADDENDA must be made in Patient Keeper for this note. * * Edits and ammendments created in [employer] are not visible * * in Patient Keeper or the legal medical record ([facility]). * -- CO-SIGNATURE -- COMMENTS: I have seen and examined the patient with the medical clinic manager fellow Dr. Lisa Wing MD on 08/25/2023. I have reviewed all the clinical information, lab investigations, and imaging data. I agree with the following examination, findings, assessment and plan. I was present and supervised. Signed in PatientKeeper by YUE GARZA MD on 09/01/23 at 09:12 -- ASSESSMENT AND PLAN -- HOSPITAL COURSE TO DATE: - 08/11 NSTEMI, downgraded to IMU --- - 08/17 s/p [id number] (SCHWARTZ to LAD, SVG to OM1, SVG to PDA, 08/17/2023, Dr. Montiel); postop CHB - 08/18: persistent CHB, TPW in place - 08/19: persistent CHB, TPW in placed - 08/23: persistent CHB, EP consulted, plan for ppm 08/24, NPOaMN - 08/24: s/p PPM, interrogation in AM - 08/25: sinus tach, start BB GENERAL ASSESSMENT: The patient is an 88-year-old female (patient of Dr. Gianna Ambrose) has a PMHx of coronary artery disease (s/p PCI with 3 ALEC), family history of coronary artery disease, carotid artery disease, hypertension, hyperlipidemia, h/o nicotine use, asthma, chronic bronchitis, anxiety. She has been having chest pressure radiating to her jaw and shortness of breath for the past 3 weeks. She was evaluated by her medical clinic manager, had stress test on 07/28/2023 what was abnormal, showed cardiomyopathy, an EF of 34%, severe inferolateral, posterolateral ischemia. Echocardiogram (06/2023) showed an EF 55-60%, moderate MR. She had coronary angiogram on 07/31/23 and showed three vessel coronary artery disease, torturous aorta with small abdominal aortic aneurysm. elevated LVEDP that is not amenable for PCI. She was evaluated by CV surgery, Dr. Montiel, for CABG. She presented at an outside hospital with complaint of chest pain radiating to her left jaw, diaphoresis and she was ruled in NSTEMI. She was transferred [facility] to [facility] for higher level of care. Chest x-ray showed interstitial and basilar airspace edema/infiltrates, cardiomegaly. Blood work showed troponin of 534.3, BNP 539, Mg 1.3. She denies chest pain, shortness of breath, palpitations now. Cardiology consulted for MVCAD. s/p CABG 08/17. s/p ppm for CHB 08/24. PROBLEMS: 1: NSTEMI (non-ST elevated myocardial infarction) A/P: - s/p [id number] (SCHWARTZ to LAD, SVG to OM1, SVG to PDA, 08/17/2023, Dr. Montiel) - TTE 08/09/2023 LVEF 40-44%, moderate MR -- repeat TTE 08/23 prelim read: LVEF >50%, no regional wall motion abnormalities - CT chest w/o contrast showed RUL PNA, Right pleural effusion, Plate-like atelectasis in the lower lobes. - On aspirin 81mg qd, clopidogrel 75mg qd, atorvastatin 80mg qd -- holding BB due to complete heart block - chest tube management per CT surgery - PT/OT/IS - cont to monitor and replete electrolytes 2: CAD (coronary artery disease) A/P: - s/p h/o PCI 2011 - s/p [id number] (SCHWARTZ to LAD, SVG to OM1, SVG to PDA, 08/17/2023, Dr. Montiel) - On aspirin 81mg qd, clopidogrel 75mg qd, atorvastatin 80mg qd -- starting BB with lower dose coreg 6.25mg po bid - monitor on tele 3: Complete heart block, post-surgical A/P: - possible myocardial stunning postop - monitor on tele - TPW pacing - EP consulted, s/p ppm 08/24, as above 4: Pleural effusion A/P: - monitor, per primary 5: Tachycardia A/P: - check ECG 08/25 - EP following -- SUBJECTIVE -- CHIEF COMPLAINT: AMELIA this AM. SAUNDRA overnight. s/p CABG and ppm. No new complaints.. Tele: sinus tachy 120s -REVIEW OF SYSTEMS- COMMENT: 10 point ROS negative unless noted. -- OBJECTIVE -- VITALS (08/24 11:54 - 08/25 11:54): Temperature F: 98.4 (97.6 - 98.6) Temperature source: Oral Pulse Rate 120 (60 - 120) Respiratory rate: 28 (16 - 52) Blood pressure: 126/72 (105/53 - 174/84) Blood pressure source: Monitor I/Os (08/24 07:00 - 08/25 07:00): Net -380.00 Intake 420.00 Output 800 -EXAM- GENERAL: Well developed, well nourished, in no apparent distress. MOUTH: Oropharynx without deformities or lesions, normal mucosa. CHEST: sternotomy site dressing c/d/i; + ppm LUNGS: Clear bilaterally with normal respiratory effort. HEART: tachycardia, normal S1, S2, no murmurs ABDOMEN: Soft, non-tender EXTREMITIES: No clubbing, no cyanosis, no edema. NEUROLOGICAL: No focal deficits, cranial nerves II-XII grossly intact PULSES: Pulses normal in all extremities. SKIN: Intact without significant lesions, or rashes. PSYCHIATRIC: Alert and oriented to time, person, place. Normal mood and affect, intact judgment and insight. -- DATA -- MEDICATIONS ACETAMINOPHEN 650 MG RECTAL Q4H PRN LIDOCAINE 1 PATCH TRANSDERM DAILY polyethylene glycoL 3350 1 PKT PO DAILY CALCIUM GLUC IN NACL, ISO-OSM 2 GM IV ASDIR PRN clopidogreL 75 MG PO DAILY ATORVASTATIN CALCIUM 80 MG PO BEDTIME SODIUM CHLORIDE 10 mL 10 ML IV ASDIR HYOSCYAMINE SULFATE 0.125 MG PO DAILY PRN bisacodyL 10 MG RECTAL ASDIR PRN clonazePAM 0.5 MG PO BEDTIME PRN DOCUSATE SODIUM 200 MG PO DAILY ONDANSETRON 4 MG PO Q6H PRN MONTELUKAST SODIUM 10 MG PO DAILY@1800 ONDANSETRON HCL/PF 4 MG IV Q6H PRN MAGNESIUM 1 GM IV ASDIR PRN FERROUS SULFATE 325 MG PO DAILY ALPRAZolam 0.25 MG PO ONCE ALBUTEROL SULFATE 2.5 MG NEB RTQ6H PRN POTASSIUM CHLORIDE 20 MEQ PO ASDIR PRN ACETAMINOPHEN 650 MG PO Q4H PRN DOXYCYCLINE MONOHYDRATE 100 MG PO Q12HR ENOXAPARIN 30 MG SUBQ DAILY NITROGLYCERIN 0.4 MG SL Q5M PRN SENNOSIDES 1 TAB PO DAILY POTASSIUM CHLORIDE 20 MEQ IV ASDIR (PRN) ASPIRIN 81 MG PO DAILY CYANOCOBALAMIN 500 MCG PO DAILY DEXTROSE 50%-WATER 25 ML IV ASDIR PRN GLUCAGON 1 MG IM ASDIR PRN SOD BIPHOS/POT PHOSPHATE 2 PKT PO ASDIR (PRN) carvediloL 3.125 MG PO BID bisacodyL 10 MG RECTAL DAILY PRN guaiFENesin 100 MG PO Q4H PRN ACETAMINOPHEN 1000 MG IV Q6H SODIUM BICARBONATE 8.4% 50 MEQ IV .ONCE PRN LABS PHOS (08/25/23 04:18) PHOSPHOROUS 3.6 CBC W/AUTO DIFF (08/25/23 04:18) WHITE BLOOD CELL 8.7 RED BLOOD CELL 3.48 L HEMOGLOBIN 9.9L L HEMATOCRIT 32.0L L MEAN CELL VOLUME 92.0 MEAN CELL HGB 28.4 MEAN CELL HGB CONCENTRATION 30.9 L RED CELL DISTRIBUTION WIDTH 15.4 PLATELET COUNT 330 MEAN PLATELET VOLUME 9.3 NEUTROPHIL % 71.4 LYMPHOCYTE % 15.5 L MONOCYTE % 7.4 EOSINOPHIL % 4.2 BASOPHIL % 0.3 NEUTROPHIL # 6.19 LYMPHOCYTE # 1.34 MONOCYTE # 0.64 EOSINOPHIL # 0.36 BASOPHIL # 0.03 BASIC METABOLIC PANEL (08/25/23 04:18) SODIUM 139 POTASSIUM 3.7 CHLORIDE 107 CARBON DIOXIDE 24 GLUCOSE 114H H BLOOD UREA NITROGEN 12 GLOMERULAR FILTRATION RATE >=60 max estimate CREATININE 0.60 CALCIUM 8.5 L MAG (08/25/23 04:18) MAGNESIUM 1.9 Signed in PatientKeeper by LISA WING on 08/25/23 at 14:56 Cosigned by YUE GARZA MD on 09/01/23 at 09:12 at 0912 at 0912 ATTENTION *EDITS and/or ADDENDA must be made in Patient Keeper for this note. * * Edits and ammendments created in [employer] are not visible * * in Patient Keeper or the legal medical record ([facility]). * RPT #: [id number] END OF REPORT [facility] 2023-08-25 10:53:00 [facility] ([facility]) Cardiology Progress Notes REPORT #: [id number] REPORT STATUS: Signed DATE: 08/25/23 TIME: 1053 PATIENT: ROCK GOMEZ UNIT #: [id number] [facility] B[facility]: A : [facility] AGE: 88 SEX: F ATTEND: Marianne Mckay MD ADM AUTHOR: Venus Junior MD CF1 ATTENTION *EDITS and/or ADDENDA must be made in Patient Keeper for this note. * * Edits and ammendments created in [employer] are not visible * * in Patient Keeper or the legal medical record ([facility]). * -- CO-SIGNATURE -- COMMENTS: I obtained the history and performed the physical examination in supervision of Venus Junior MD. I concur with his findings with the following additions: NAEON Gen: NAD, A+Ox3 HEENT: anicteric sclera,MMM Neck: suppple, no JVD CV: RRR, aud s1/s2, no m/r/g Lungs: CTAB Abd: Soft, nondistended/nontender Neuro: Non-focal Psych: Alert, appropriate, mood and affect normal The plan is CHB -s/p DC PPM, acceptable parameters Atach -Plan for amio x 3 months; likely post operative Time spent on patient care: I spent > 30 minutes on patient care, including 15 minutes spent jointly with Venus Junior MD. > 50% of time spent on counseling/coordination of care Jared Wilcox MD Cardiac Vice President And Portfolio Manager [place] [facility]rhythmia Signed in PatientKeeper by JARED WILCOX MD on 09/04/23 at 08:40 -- ADDITIONAL COMMENTS -- COMMENTS: After rounding with Dr. Wilcox this evening, the patient was started on Amiodarone 200 mg Q 12 HOURS FOR 5 days followed by once daily for the total of 3 months. Indication for the above treatment is atrial tachycardia that she developed post pacemaker placement. Signed in PatientKeeper by VENUS JUNIOR MD CF1 on 08/25/23 at 17:43 -- ASSESSMENT AND PLAN -- GENERAL ASSESSMENT: Miss. Gomez is an 88 years old lady who is s/p CABG X 3 with significant post CABG complete heart block. The patient has been in complete heart block persistently since surgery, EP following for transitioning her to PPM . EF is intact on post op echo. PROBLEMS: 1: Complete heart block, post-surgical A/P: -POD #8 with complete heart block and accelerated junctional underlying -Remained on temporary pacemaker until 08/24/2023 -Patient underwent PPM on 08/24/2023 with ASVP programming. -Device interrogated this morning, -Tracking the atrial well. -HR this morning above 80 intrinsic. -Pocket site without hematoma, swelling, discharge and clean, dry and intact. -Continue Minocycline 100 mg BID x 7 days (/ day today ) -Case discussed with Dr. Wilcox. -- SUBJECTIVE -- CHIEF COMPLAINT: Follow up on post op complete heart block . PATIENT NARRATIVE: Patient is stable this morning. Denied chest pain, shortness of breath or palpitations. The patient feels down and reported "she is alone". She denied suicidal or homicidal ideation. -- OBJECTIVE -- VITALS (08/24 10:53 - 08/25 10:53): Temperature F: 98.4 (97.6 - 98.6) Temperature source: Oral Pulse Rate 120 (60 - 120) Respiratory rate: 28 (16 - 52) Blood pressure: 126/72 (105/53 - 174/84) Blood pressure source: Monitor I/Os (08/24 07:00 - 08/25 07:00): Net -380.00 Intake 420.00 Output 800 -EXAM- GENERAL: Well developed, well nourished, in no apparent distress. HEAD: Normocephalic, atraumatic. MOUTH: Oropharynx without deformities or lesions, normal mucosa.. NECK: No masses, no thyromegaly, no abnormal cervical nodes, trachea midline. CHEST: Grossly normal appearance. mid-sternotomy wound clear and intact. LUNGS: Clear bilaterally with normal respiratory effort. HEART: Regular rate and rhythm, normal S1, S2, no murmurs, no rubs, no gallops, no clicks. ABDOMEN: Soft, non-tender, no organomegaly, no masses noted. MUSCULOSKELETAL: No deformity, no scoliosis noted of thoracic or lumbar spine, joint ROM grossly normal, normal gait and station. EXTREMITIES: No clubbing, no cyanosis, no edema. NEUROLOGICAL: No focal deficits, cranial nerves II-XII grossly intact, normal sensation, normal reflexes, normal coordination, normal muscle strength, normal tone. PULSES: Pulses normal in all extremities. -- DATA -- MEDICATIONS ACETAMINOPHEN 650 MG RECTAL Q4H PRN ALBUTEROL SULFATE 2.5 MG NEB RTQ6H PRN polyethylene glycoL 3350 1 PKT PO DAILY POTASSIUM CHLORIDE 20 MEQ PO ASDIR PRN CALCIUM GLUC IN NACL, ISO-OSM 2 GM IV ASDIR PRN ACETAMINOPHEN 650 MG PO Q4H PRN DOXYCYCLINE MONOHYDRATE 100 MG PO Q12HR ENOXAPARIN 30 MG SUBQ DAILY NITROGLYCERIN 0.4 MG SL Q5M PRN clopidogreL 75 MG PO DAILY SENNOSIDES 1 TAB PO DAILY POTASSIUM CHLORIDE 20 MEQ IV ASDIR (PRN) ASPIRIN 81 MG PO DAILY ATORVASTATIN CALCIUM 80 MG PO BEDTIME SODIUM CHLORIDE 10 mL 10 ML IV ASDIR HYOSCYAMINE SULFATE 0.125 MG PO DAILY PRN bisacodyL 10 MG RECTAL ASDIR PRN CYANOCOBALAMIN 500 MCG PO DAILY DEXTROSE 50%-WATER 25 ML IV ASDIR PRN clonazePAM 0.5 MG PO BEDTIME PRN GLUCAGON 1 MG IM ASDIR PRN SOD BIPHOS/POT PHOSPHATE 2 PKT PO ASDIR (PRN) DOCUSATE SODIUM 200 MG PO DAILY ONDANSETRON 4 MG PO Q6H PRN MONTELUKAST SODIUM 10 MG PO DAILY@1800 ONDANSETRON HCL/PF 4 MG IV Q6H PRN bisacodyL 10 MG RECTAL DAILY PRN MAGNESIUM 1 GM IV ASDIR PRN guaiFENesin 100 MG PO Q4H PRN ACETAMINOPHEN 1000 MG IV Q6H SODIUM BICARBONATE 8.4% 50 MEQ IV .ONCE PRN FERROUS SULFATE 325 MG PO DAILY LABS PHOS (08/25/23 04:18) PHOSPHOROUS 3.6 CBC W/AUTO DIFF (08/25/23 04:18) WHITE BLOOD CELL 8.7 RED BLOOD CELL 3.48 L HEMOGLOBIN 9.9L L HEMATOCRIT 32.0L L MEAN CELL VOLUME 92.0 MEAN CELL HGB 28.4 MEAN CELL HGB CONCENTRATION 30.9 L RED CELL DISTRIBUTION WIDTH 15.4 PLATELET COUNT 330 MEAN PLATELET VOLUME 9.3 NEUTROPHIL % 71.4 LYMPHOCYTE % 15.5 L MONOCYTE % 7.4 EOSINOPHIL % 4.2 BASOPHIL % 0.3 NEUTROPHIL # 6.19 LYMPHOCYTE # 1.34 MONOCYTE # 0.64 EOSINOPHIL # 0.36 BASOPHIL # 0.03 BASIC METABOLIC PANEL (08/25/23 04:18) SODIUM 139 POTASSIUM 3.7 CHLORIDE 107 CARBON DIOXIDE 24 GLUCOSE 114H H BLOOD UREA NITROGEN 12 GLOMERULAR FILTRATION RATE >=60 max estimate CREATININE 0.60 CALCIUM 8.5 L MAG (08/25/23 04:18) MAGNESIUM 1.9 Signed in PatientKeeper by VENUS JUNIOR MD1 on 08/25/23 at 10:58 Cosigned by JARED WILCOX MD on 09/04/23 at 08:40 at 0840 at 0840 ATTENTION *EDITS and/or ADDENDA must be made in Patient Keeper for this note. * * Edits and ammendments created in [employer] are not visible * * in Patient Keeper or the legal medical record ([facility]). * [facility] #: [id number] END OF REPORT [facility] 2023-08-25 10:28:00 [facility] ([facility]) Hospitalist Progress Note REPORT #: [id number] REPORT STATUS: Signed DATE: 08/25/23 TIME: 1028 PATIENT: ROCK GOMEZ UNIT #: [id number] ROOM #: [id number] BED: 1 : 36 AGE: 88 SEX: F ATTEND: Marianne Mckay MD ADM AUTHOR: Marianne Mckay MD ATTENTION *EDITS and/or ADDENDA must be made in Patient Keeper for this note. * * Edits and ammendments created in [employer] are not visible * * in Patient Keeper or the legal medical record ([facility]). * -- ASSESSMENT AND PLAN -- GENERAL ASSESSMENT: ASSESSMENT AND PLAN: 1. Non-ST segment elevation myocardial infarction in a patient with a known history of severe multivessel coronary artery disease including proximal 80% LAD, 90% ostial and proximal circumflex and distal RCA with stent occlusion, preserved left ventricular ejection fraction on angiogram. The patient has recently been evaluated by Dr. King Montiel of Cardiothoracic Surgery services for consideration of coronary artery bypass and grafting. We will continue aspirin, heparin, beta blockers, statins and nitroglycerin. The patient underwent 3V CABG, SCHWARTZ to LAD, saphenous vein graft to the obtuse marginal and saphenous vein graft to the posterior descending artery by Dr King Montiel 08/17/20. EBL 750 cc. Received 2 units of PRBC and 2 Cell Saver. Urine output is good. [address] extubated POD 0 2. Pulmonary edema, related to decompensated diastolic congestive cardiac failure. Cautious use of diuretics. 3. Hypertension. Continue metoprolol and losartan. 4. Hyperlipidemia. Total cholesterol 226, HDL 90, LDL 139, triglycerides 121. Continue atorvastatin 80 mg daily. 5. Hypomagnesemia, replete. 6. Asthma. Continue montelukast. 7. Anxiety, not otherwise specified. Continue lorazepam. 8. Acute exacerbation of likely diastolic congestive heart failure. Diurese as above. 9. Osteoarthritis, avoid nonsteroidals. 10. Chronic kidney disease, stage II. 11. Hypokalemia, replete 12. Complete heart block, temporary pacer dependent. underwent Direct Left Bundle Dual Chamber Pacemaker Implantation (Jean) by Dr Jared Wilcox 08/24/23 13. Atelectasis. 14. Prophylaxis. Frequent turning, barrier, decubitus ulcer prevention. 15. Left pleural effusion. ADDITIONAL COMMENTS: The patient underwent 3V CABG, SCHWARTZ to LAD, saphenous vein graft to the obtuse marginal and saphenous vein graft to the posterior descending artery by Dr King Montiel 08/17/20. extubated 08/17. s/p PPM for CHB 08/24. Likely IPR -- SUBJECTIVE -- HPI: This 88-year-old female, a patient of Dr. Gianna Ambrose, has a past medical history significant for hypertension, hyperlipidemia, asthma, anxiety, chronic bronchitis, and coronary artery disease, status post angioplasty in 2011. A few weeks ago, the patient developed new onset of jaw pain and dyspnea, and noninvasive cardiac workup by Dr. Ambrose including a nuclear stress test showed an ejection fraction of 34% with severe inferolateral and posterolateral ischemia, a change from a previously normal ejection fraction of 55% to 60% in 06/2023. Subsequent coronary angiogram on 07/31/2023 showed severe multivessel coronary artery disease including 80% proximal LAD, 90% ostial and proximal circumflex, heavily calcified RCA with a distal occluded stent, and an ejection fraction during the heart catheterization to be 55%, elevated left ventricular end diastolic pressure at 33. The patient was evaluated by Dr. King Montiel of Cardiothoracic Surgery services on 08/06 and discussions were underway as regards to possible bypass surgery. Since that time, the patient has had increased anxiety about the possibility of undergoing bypass surgery and has not been able to sleep or rest well. On the morning of admission, she developed central chest pressure with radiation to the jaw and worsening shortness of breath. She presented to the [facility] in [place], [place], where troponin was elevated to 300 range and EKG was negative for ST elevation. She was also found to be in fluid overload, started on ACS protocol, heparin, Lasix and transferred to the [facility] for higher level of care. Troponin has trended up 530 and BNP 539, and chest x-ray shows interstitial pulmonary edema/infiltrates. She is being admitted to the intensive care unit for further evaluation and management. PATIENT NARRATIVE: 08/10: No acute events overnight. No significant chest pain or shortness of breath. Anxious. Troponin is trending down. On intravenous heparin, beta-blockers aspirin and statins. Plavix is on hold in case the patient goes for CABG. Cardiology and cardiothoracic surgery services following. Await further recommendations 08/11: No chest pain jaw pain or arm pain. On heparin infusion. Plans for high risk CABG week of 08/[address] King Montiel. The patient is being transitioned out to CV IMU, pending CABG. Walked 320 feet with physical therapy 08/12: Denies any chest pain or shortness of breath. No headache or dizziness. No nausea or vomiting. Has chronic constipation. On heparin infusion. Plans for high risk CABG week of 08/[address] King Montiel 08/13: No acute events overnight. No chest pain or shortness of breath. No headache or dizziness. The patient was reluctant to get her blood drawn for the PTT, explained to by the nurses. Agreeable. PTT therapeutic. Potassium low, 2.9, replaced On Lasix 40 mg IV daily. Intake and output are not accurate. Walked about 320 feet with physical therapy. 08/14: No acute events overnight. Just anxious, taking her benzodiazepines. On heparin infusion. On diuretics and electrolyte replacement. Plans for high risk CABG week of 08/[address] King Montiel. 08/15: Heparin stopped by Dr. King Montiel. Surgery most likely 08/17. In general doing okay. No chest pain or shortness of breath. No headache or dizziness. Anxious. 08/16: No acute events. No chest pain or shortness of breath. In general feels all right. Plans for high risk CABG 08/[address] King Montiel 08/17: The patient underwent 3V CABG, SCHWARTZ to LAD, saphenous vein graft to the obtuse marginal and saphenous vein graft to the posterior descending artery by Dr King Montiel 08/17/20. EBL 750 cc. Received 2 units of PRBC and 2 Cell Saver. Urine output is good. [address] extubated 08/17 08/18: Was on 2 L of oxygen, wean down to room air. Complete heart block, temporary pacer dependent. EP consulted. [address]. 08/19: Patient developed lethargic today after pain medications. On 2 L via NC Temporary pacer dependent. [address] walked 120 feet with PT. tired appearing 08/21: Patient evaluated at bedside and reports that she would like to walk. Denies having any chest pain nausea or vomiting at this time. 08/22: Patient continues to have a Munoz catheter, and magnesium is 1.7 potassium 3.3 which were replaced. Patient sitting on bedside chair. Complete heart block and accelerated junctional underlying if no recovery would benefit from permanent pacemaker 08/23: On 1 L of oxygen via nasal cannula. No chest pain. Feels tired. Underwent 2D echocardiogram today. For permanent pacemaker 08/24 08/24: underwent Direct Left Bundle Dual Chamber Pacemaker Implantation (Jean) by Dr Jared Wilcox. 08/25: Underwent direct left bundle dual-chamber but permanent pacemaker placement with Dr. Jared Wilcox on 08/24. She tolerated the procedure well. She has left pleural effusion, plan is for ultrasound to see if it can be tapped. To start on low-dose beta-blockers today and see how she tolerates them. started on Amiodarone 200 mg Q 12 HOURS FOR 5 days followed by once daily for the total of 3 months. Indication for the above treatment is atrial tachycardia that she developed post pacemaker placement. She will be going to inpatient rehab. -REVIEW OF SYSTEMS- GENERAL: as above -- OBJECTIVE -- VITALS (08/24 10:28 - 08/25 10:28): Temperature F: 98.4 (97.6 - 98.6) Temperature source: Oral Pulse Rate 120 (60 - 120) Respiratory rate: 28 (16 - 52) Blood pressure: 126/72 (105/53 - 174/84) Blood pressure source: Monitor I/Os (08/24 07:00 - 08/25 07:00): Net -380.00 Intake 420.00 Output 800 -EXAM- GENERAL: GENERAL: Elderly female, anxious, not in any acute distress. VITAL SIGNS: Weight is 61.3 kilograms. Body mass index 27.3. HEENT: Head is atraumatic. NECK: Supple. No thyromegaly. No JVD. CARDIOVASCULAR: Regular rate and rhythm. CHEST: sternotomy; 2/2 CTs out; CHIN PPM LUNGS: Coarse BS ABDOMEN: Soft, nondistended, nontender. No organomegaly. EXTREMITIES: No edema, cyanosis, or clubbing. Pedal pulses palpable. NEUROLOGIC: No focal deficit. -- DATA -- MEDICATIONS ACETAMINOPHEN 650 MG RECTAL Q4H PRN ALBUTEROL SULFATE 2.5 MG NEB RTQ6H PRN polyethylene glycoL 3350 1 PKT PO DAILY POTASSIUM CHLORIDE 20 MEQ PO ASDIR PRN CALCIUM GLUC IN NACL, ISO-OSM 2 GM IV ASDIR PRN ACETAMINOPHEN 650 MG PO Q4H PRN DOXYCYCLINE MONOHYDRATE 100 MG PO Q12HR ENOXAPARIN 30 MG SUBQ DAILY NITROGLYCERIN 0.4 MG SL Q5M PRN clopidogreL 75 MG PO DAILY SENNOSIDES 1 TAB PO DAILY POTASSIUM CHLORIDE 20 MEQ IV ASDIR (PRN) ASPIRIN 81 MG PO DAILY ATORVASTATIN CALCIUM 80 MG PO BEDTIME SODIUM CHLORIDE 10 mL 10 ML IV ASDIR HYOSCYAMINE SULFATE 0.125 MG PO DAILY PRN bisacodyL 10 MG RECTAL ASDIR PRN CYANOCOBALAMIN 500 MCG PO DAILY DEXTROSE 50%-WATER 25 ML IV ASDIR PRN clonazePAM 0.5 MG PO BEDTIME PRN GLUCAGON 1 MG IM ASDIR PRN SOD BIPHOS/POT PHOSPHATE 2 PKT PO ASDIR (PRN) DOCUSATE SODIUM 200 MG PO DAILY ONDANSETRON 4 MG PO Q6H PRN MONTELUKAST SODIUM 10 MG PO DAILY@1800 ONDANSETRON HCL/PF 4 MG IV Q6H PRN bisacodyL 10 MG RECTAL DAILY PRN MAGNESIUM 1 GM IV ASDIR PRN guaiFENesin 100 MG PO Q4H PRN ACETAMINOPHEN 1000 MG IV Q6H SODIUM BICARBONATE 8.4% 50 MEQ IV .ONCE PRN FERROUS SULFATE 325 MG PO DAILY LABS PHOS (08/25/23 04:18) PHOSPHOROUS 3.6 CBC W/AUTO DIFF (08/25/23 04:18) WHITE BLOOD CELL 8.7 RED BLOOD CELL 3.48 L HEMOGLOBIN 9.9L L HEMATOCRIT 32.0L L MEAN CELL VOLUME 92.0 MEAN CELL HGB 28.4 MEAN CELL HGB CONCENTRATION 30.9 L RED CELL DISTRIBUTION WIDTH 15.4 PLATELET COUNT 330 MEAN PLATELET VOLUME 9.3 NEUTROPHIL % 71.4 LYMPHOCYTE % 15.5 L MONOCYTE % 7.4 EOSINOPHIL % 4.2 BASOPHIL % 0.3 NEUTROPHIL # 6.19 LYMPHOCYTE # 1.34 MONOCYTE # 0.64 EOSINOPHIL # 0.36 BASOPHIL # 0.03 BASIC METABOLIC PANEL (08/25/23 04:18) SODIUM 139 POTASSIUM 3.7 CHLORIDE 107 CARBON DIOXIDE 24 GLUCOSE 114H H BLOOD UREA NITROGEN 12 GLOMERULAR FILTRATION RATE >=60 max estimate CREATININE 0.60 CALCIUM 8.5 L MAG (08/25/23 04:18) MAGNESIUM 1.9 -- QUALITY -- -MEDICATIONS- - I attest that the foregoing medication list in the medical record is true, accurate, and complete to the best of my knowledge. -- ATTESTATION -- CARE ACTIVITIES / CARE COORDINATION: - I have reviewed the history and repeated the snyder elements - I have seen and examined this patient - I have reviewed the progress in the clinical course since the last examination - I have discussed the patient's condition with other members of the care team Signed in PatientKeeper by Marianne Mckay MD on 08/25/23 at 22:02 at 2202 ATTENTION *EDITS and/or ADDENDA must be made in Patient Keeper for this note. * * Edits and ammendments created in [employer] are not visible * * in Patient Keeper or the legal medical record (HPF). * [facility] #: [id number] END OF REPORT [facility] 2023-08-25 08:32:00 [facility] ([facility]) Intensive Care Progress Note REPORT #: [id number] REPORT STATUS: Signed DATE: 08/25/23 TIME: 831 PATIENT: ROCK GOMEZ UNIT #: [id number] ROOM #: P.0307 BED: 1 : 36 AGE: 88 SEX: F ATTEND: Marianne Mckay MD ADM AUTHOR: Caitlin Bosch MD ATTENTION *EDITS and/or ADDENDA must be made in Patient Keeper for this note. * * Edits and ammendments created in [employer] are not visible * * in Patient Keeper or the legal medical record (HPF). * -- ASSESSMENT AND PLAN -- HOSPITAL COURSE TO DATE: Ms. Gomez is an 88 yr old F with a PMHx of HTN, HLD, Asthma, Anxiety, Chronic Bronchitis and CAD s/p Angioplasty in 2011 who was transferred to the CVICU from the OR on 08/17 after CABG X 3 (SCHWARTZ-LAD, rSVG-PDA, rSVG-OM) by Dr. Montiel. 08/24 - u/w PPM placement Overnight had an episode of tachycardia (V-paced 110-120) for 30 - 45 min. This am, complains of L sided chest pain GENERAL ASSESSMENT: I examined her, reviewed her EMR information and data and discussed her plan of care with supporting clinical and ancillary services. Assessment and Plan Neuro * ICU analgesia * H/o Anxiety * Acute postop pain - On Acetaminophen - On prn Clonazepam Pulm * Acute resp insufficiency * H/o Asthma * H/o Chronic bronchitis - Supplemental O2 to keep SPO2 > 94%, sating well on NC - CXR with LLL atelectasis PLEFF - Check L Lung US - On Cingulair - Pulm Hygiene CVS * H/o mv CAD * S/p CABG X 3 as above * Acute chronotropic incompetence * LVH * H/o HTN - On ASA, Plavix, Statin - Will start low dose BB - For lead clipping today - D/w Dr. Montiel who is following GI * Nutrition - Cardiac diet and supplements Renal * Acute prerenal azotemia * Uremic/Hyperchloremic metabolic acidosis * Fluid overload - PRN diuresis - Replete elec per ICU protocol Heme * Acute blood loss anemia - Adequate H/h and equilibrating Endo * Euglycemia * H/o HLD - Covering with ISS. - On Statin ID Afebrile without leukocytosis - No overt ID focus - No need for ABx at this point Prophylaxis - SCDs - Lovenox Medications reviewed with the Clinical Pharmacist Full Code per patient preop. Will inquire with family about Advance care guidelines Stable to transfer to IMU after clipping leads out. Hospitalist is following. Will s/o, please call w questions -- OBJECTIVE -- VITALS (08/24 08:33 - 08/25 08:33): Temperature F: 98.4 (97.6 - 98.6) Temperature source: Oral Pulse Rate 120 (60 - 120) Respiratory rate: 28 (16 - 52) Blood pressure: 126/72 (105/53 - 174/84) Blood pressure source: Monitor I/Os (08/24 07:00 - 08/25 07:00): Net -380.00 Intake 420.00 Output 800 COMMENTS: Objective - General - Alert, oriented x2. Heart - RRR, Soft S1 S2, S. murmur III Chest - Decrease air entry on the lower zones w bronchial breathing in the LL zones. No wheezes Abd - Soft, lax, NT, ND, -ve BS LE - Trace LE edema Skin - No rash Neck - Supple, non tender -- DATA -- MEDICATIONS ACETAMINOPHEN 650 MG RECTAL Q4H PRN ALBUTEROL SULFATE 2.5 MG NEB RTQ6H PRN polyethylene glycoL 3350 1 PKT PO DAILY POTASSIUM CHLORIDE 20 MEQ PO ASDIR PRN CALCIUM GLUC IN NACL, ISO-OSM 2 GM IV ASDIR PRN ACETAMINOPHEN 650 MG PO Q4H PRN DOXYCYCLINE MONOHYDRATE 100 MG PO Q12HR ENOXAPARIN 30 MG SUBQ DAILY NITROGLYCERIN 0.4 MG SL Q5M PRN clopidogreL 75 MG PO DAILY SENNOSIDES 1 TAB PO DAILY POTASSIUM CHLORIDE 20 MEQ IV ASDIR (PRN) ASPIRIN 81 MG PO DAILY ATORVASTATIN CALCIUM 80 MG PO BEDTIME SODIUM CHLORIDE 10 mL 10 ML IV ASDIR HYOSCYAMINE SULFATE 0.125 MG PO DAILY PRN bisacodyL 10 MG RECTAL ASDIR PRN CYANOCOBALAMIN 500 MCG PO DAILY DEXTROSE 50%-WATER 25 ML IV ASDIR PRN clonazePAM 0.5 MG PO BEDTIME PRN GLUCAGON 1 MG IM ASDIR PRN SOD BIPHOS/POT PHOSPHATE 2 PKT PO ASDIR (PRN) DOCUSATE SODIUM 200 MG PO DAILY ONDANSETRON 4 MG PO Q6H PRN MONTELUKAST SODIUM 10 MG PO DAILY@1800 ONDANSETRON HCL/PF 4 MG IV Q6H PRN bisacodyL 10 MG RECTAL DAILY PRN MAGNESIUM 1 GM IV ASDIR PRN guaiFENesin 100 MG PO Q4H PRN ACETAMINOPHEN 1000 MG IV Q6H SODIUM BICARBONATE 8.4% 50 MEQ IV .ONCE PRN FERROUS SULFATE 325 MG PO DAILY LABS PHOS (08/25/23 04:18) PHOSPHOROUS 3.6 CBC W/AUTO DIFF (08/25/23 04:18) WHITE BLOOD CELL 8.7 RED BLOOD CELL 3.48 L HEMOGLOBIN 9.9L L HEMATOCRIT 32.0L L MEAN CELL VOLUME 92.0 MEAN CELL HGB 28.4 MEAN CELL HGB CONCENTRATION 30.9 L RED CELL DISTRIBUTION WIDTH 15.4 PLATELET COUNT 330 MEAN PLATELET VOLUME 9.3 NEUTROPHIL % 71.4 LYMPHOCYTE % 15.5 L MONOCYTE % 7.4 EOSINOPHIL % 4.2 BASOPHIL % 0.3 NEUTROPHIL # 6.19 LYMPHOCYTE # 1.34 MONOCYTE # 0.64 EOSINOPHIL # 0.36 BASOPHIL # 0.03 BASIC METABOLIC PANEL (08/25/23 04:18) SODIUM 139 POTASSIUM 3.7 CHLORIDE 107 CARBON DIOXIDE 24 GLUCOSE 114H H BLOOD UREA NITROGEN 12 GLOMERULAR FILTRATION RATE >=60 max estimate CREATININE 0.60 CALCIUM 8.5 L MAG (08/25/23 04:18) MAGNESIUM 1.9 -- ATTESTATION -- CARE ACTIVITIES / CARE COORDINATION: - I have reviewed the history and repeated the snyder elements - I have seen and examined this patient - I have reviewed the progress in the clinical course since the last examination - I have discussed the patient's condition with other members of the care team Signed in PatientKeeper by Caitlin Bosch MD on 08/25/23 at 17:00 ATTENTION *EDITS and/or ADDENDA must be made in Patient Keeper for this note. * * Edits and ammendments created in [employer] are not visible * * in Patient Keeper or the legal medical record (HPF). * RPT #: [id number] END OF REPORT [facility] 2023-08-24 21:45:00 [facility] ([facility]) Operative Report REPORT #: [id number] REPORT STATUS: Signed DATE: 08/24/23 TIME: 2144 PATIENT: ROCK GOMEZ UNIT #: [id number] ROOM #: P.0307 BED: 1 : 36 AGE: 88 SEX: F ATTEND: Marianne Mckay MD ADM AUTHOR: Jared Wilcox MD ATTENTION *EDITS and/or ADDENDA must be made in Patient Keeper for this note. * * Edits and ammendments created in [employer] are not visible * * in Patient Keeper or the legal medical record (HPF). * -- OPERATION -- SURGERY START DATE/TIME: 2023-08-24 21:45 PRE-OPERATIVE DIAGNOSIS: See Description POST-OPERATIVE DIAGNOSIS: See Description NAME OF PROCEDURE: See Description SURGEON: Jared Wilcox MD COMMERCIAL ILLUSTRATOR(S): See Description ANESTHESIA: See Description ESTIMATED BLOOD LOSS: 10 ml's FINDINGS: See Description SPECIMEN(S) REMOVED AND/OR ALTERED: See Description COMPLICATION(S): See Description -- DESCRIPTION -- DESCRIPTION OF TECHNIQUE/PROCEDURE: Direct Left Bundle Dual Chamber Pacemaker Implantation Procedure Note Vice President And Portfolio Manager: Jared Wilcox MD Fellow: [None] Facility: [facility] Loan Review Manager: Jean Referring Physician: MD Antoni Date of Procedure: 08/24/23 Preprocedure Diagnosis: Complete Heart Block Procedure Performed: Implantation of a dual chamber PPM (52801) The procedure was performed utilizing moderate sedation with split doses of IV Versed and fentanyl administered by a nurse trained in conscious sedation under the direct supervision of the performing physician. Additionally local anesthetic was administered to the sites of catheter access. Throughout the procedure, the patient was monitored by a radiology nurse. The patient s vital signs were stable throughout the procedure, including cardiac rhythm and oxygen saturation. Neurological checks were also performed during the procedure. 2mg versed, 50mcg fentanyl TOTAL INTRA SERVICE TIME: 35 minutes EBL: Minimal Specimen Removed: None Complications: None Condition: Stable Summary: The patient was brought to the electrophysiology suite in the fasting state and was prepped and draped in the usual sterile fashion. A Time Out was held and the following information was confirmed/verified: Patient Name Patient Date of Medical Record Number Procedure Type Laterality Pertinent Medical Comorbidities Allergies Recent Laboratory Values Recent Imaging Results Ultrasound was initially used to assess potential access sites and patency of the [left] axillary vein. The vein was confirmed to be visibly patent on ultrasound. By the use of modified Seldinger technique and under direct ultrasound guidance of needle tip, two venipunctures were obtained in the axillary vein with a micropuncture needle and two 0.035 J-wires were introduced. Ultrasound images were stored locally on the ultrasound device. An incision was made in the [left] pectoral area inferior to the clavicle. Using a combination of sharp and blunt dissection with electrocautery the incision was carried down to the level of the pectoralis fascia and a pocket was created above the pectoralis muscle. The previous J wires were then harvested and two peel-away vascular sheaths were then placed. A ventricular pacing electrode was placed in the septal aspect near the position of the left bundle in the right ventricle. Adequate pacing and sensing was confirmed, the sheath was peeled away, and the lead was sewn into position with 2-0 silk pop-off suture. A right atrial lead was placed in the right atrial appendage, adequate pacing was confirmed, the sheath was peeled away, and the lead was sewn into position with 2-0 silk pop-off suture. Copious amounts of antibiotic solution were then used to irrigate the pocket. The generator was then connected to the leads, adequate connections of both leads to the generator were confirmed. Appropriate sensing, pacing impedance, and pacing thresholds were tested and verified through the device. Adequate hemostasis and lead placement were verified once again and then the pocket was closed with two layers of continuous 2.0 Vicryl sutures and 4.0 monocryl at the surface with dermabond at skin level. The patient tolerated the procedure well. A sterile pressure dressing was applied. The patient s arm was immobilized and the patient was transferred from the lab in stable condition. Recommendations -Patient to receive a chest xray post procedure to evaluate for lead positioning -Patient is to take antibiotics by mouth for 5 days post procedure -Two week follow up in the office for device check -Patient to be enrolled in home monitoring -Patient to remove pressure dressing tomorrow at home -Patient to wear sling for first 24 hours and thereafter the first three nights -Additional instructions provided in written format to the patient Jared Wilcox M.D. Cardiac Vice President And Portfolio Manager [place] [facility] Signed in PatientKeeper by Jared Wilcox MD on 08/24/23 at 21:57 at 2157 ATTENTION *EDITS and/or ADDENDA must be made in Patient Keeper for this note. * * Edits and ammendments created in [employer] are not visible * * in Patient Keeper or the legal medical record ([facility]). * RPT #: [id number] END OF REPORT [facility] 2023-08-24 17:55:00 [facility] ([facility]) Hospitalist Progress Note REPORT #: [id number] REPORT STATUS: Signed DATE: 08/24/23 TIME: 175 PATIENT: ROCK GOMEZ UNIT #: [id number] ROOM #: P.0307 BED: 1 : 36 AGE: 88 SEX: F ATTEND: Marianne Mckay MD ADM AUTHOR: Marianne Mckay MD ATTENTION *EDITS and/or ADDENDA must be made in Patient Keeper for this note. * * Edits and ammendments created in [employer] are not visible * * in Patient Keeper or the legal medical record ([facility]). * -- ASSESSMENT AND PLAN -- GENERAL ASSESSMENT: ASSESSMENT AND PLAN: 1. Non-ST segment elevation myocardial infarction in a patient with a known history of severe multivessel coronary artery disease including proximal 80% LAD, 90% ostial and proximal circumflex and distal RCA with stent occlusion, preserved left ventricular ejection fraction on angiogram. The patient has recently been evaluated by Dr. King Montiel of Cardiothoracic Surgery services for consideration of coronary artery bypass and grafting. We will continue aspirin, heparin, beta blockers, statins and nitroglycerin. The patient underwent 3V CABG, SCHWARTZ to LAD, saphenous vein graft to the obtuse marginal and saphenous vein graft to the posterior descending artery by Dr King Montiel 08/17/20. EBL 750 cc. Received 2 units of PRBC and 2 Cell Saver. Urine output is good. [address] extubated POD 0 2. Pulmonary edema, related to decompensated diastolic congestive cardiac failure. Cautious use of diuretics. 3. Hypertension. Continue metoprolol and losartan. 4. Hyperlipidemia. Total cholesterol 226, HDL 90, LDL 139, triglycerides 121. Continue atorvastatin 80 mg daily. 5. Hypomagnesemia, replete. 6. Asthma. Continue montelukast. 7. Anxiety, not otherwise specified. Continue lorazepam. 8. Acute exacerbation of likely diastolic congestive heart failure. Diurese as above. 9. Osteoarthritis, avoid nonsteroidals. 10. Chronic kidney disease, stage II. 11. Hypokalemia, replete 12. Complete heart block, temporary pacer dependent. underwent Direct Left Bundle Dual Chamber Pacemaker Implantation (Jean) by Dr Jared Wilcox 08/24/23 13. Atelectasis. 14. Prophylaxis. Frequent turning, barrier, decubitus ulcer prevention. ADDITIONAL COMMENTS: The patient underwent 3V CABG, SCHWARTZ to LAD, saphenous vein graft to the obtuse marginal and saphenous vein graft to the posterior descending artery by Dr King Montiel 08/17/20. extubated 08/17. s/p CHB 08/24. -- SUBJECTIVE -- HPI: This 88-year-old female, a patient of Dr. Gianna Ambrose, has a past medical history significant for hypertension, hyperlipidemia, asthma, anxiety, chronic bronchitis, and coronary artery disease, status post angioplasty in 2011. A few weeks ago, the patient developed new onset of jaw pain and dyspnea, and noninvasive cardiac workup by Dr. Ambrose including a nuclear stress test showed an ejection fraction of 34% with severe inferolateral and posterolateral ischemia, a change from a previously normal ejection fraction of 55% to 60% in 06/2023. Subsequent coronary angiogram on 07/31/2023 showed severe multivessel coronary artery disease including 80% proximal LAD, 90% ostial and proximal circumflex, heavily calcified RCA with a distal occluded stent, and an ejection fraction during the heart catheterization to be 55%, elevated left ventricular end diastolic pressure at 33. The patient was evaluated by Dr. King Montiel of Cardiothoracic Surgery services on 08/06 and discussions were underway as regards to possible bypass surgery. Since that time, the patient has had increased anxiety about the possibility of undergoing bypass surgery and has not been able to sleep or rest well. On the morning of admission, she developed central chest pressure with radiation to the jaw and worsening shortness of breath. She presented to the [facility] in [place], [place], where troponin was elevated to 300 range and EKG was negative for ST elevation. She was also found to be in fluid overload, started on ACS protocol, heparin, Lasix and transferred to the [facility] for higher level of care. Troponin has trended up 530 and BNP 539, and chest x-ray shows interstitial pulmonary edema/infiltrates. She is being admitted to the intensive care unit for further evaluation and management. PATIENT NARRATIVE: 08/10: No acute events overnight. No significant chest pain or shortness of breath. Anxious. Troponin is trending down. On intravenous heparin, beta-blockers aspirin and statins. Plavix is on hold in case the patient goes for CABG. Cardiology and cardiothoracic surgery services following. Await further recommendations 08/11: No chest pain jaw pain or arm pain. On heparin infusion. Plans for high risk CABG week of 08/[address] King Montiel. The patient is being transitioned out to CV IMU, pending CABG. Walked 320 feet with physical therapy 08/12: Denies any chest pain or shortness of breath. No headache or dizziness. No nausea or vomiting. Has chronic constipation. On heparin infusion. Plans for high risk CABG week of 08/[address] King Montiel 08/13: No acute events overnight. No chest pain or shortness of breath. No headache or dizziness. The patient was reluctant to get her blood drawn for the PTT, explained to by the nurses. Agreeable. PTT therapeutic. Potassium low, 2.9, replaced On Lasix 40 mg IV daily. Intake and output are not accurate. Walked about 320 feet with physical therapy. 08/14: No acute events overnight. Just anxious, taking her benzodiazepines. On heparin infusion. On diuretics and electrolyte replacement. Plans for high risk CABG week of 08/[address] King Montiel. 08/15: Heparin stopped by Dr. King Montiel. Surgery most likely 08/17. In general doing okay. No chest pain or shortness of breath. No headache or dizziness. Anxious. 08/16: No acute events. No chest pain or shortness of breath. In general feels all right. Plans for high risk CABG 08/[address] King Montiel 08/17: The patient underwent 3V CABG, SCHWARTZ to LAD, saphenous vein graft to the obtuse marginal and saphenous vein graft to the posterior descending artery by Dr King Montiel 08/17/20. EBL 750 cc. Received 2 units of PRBC and 2 Cell Saver. Urine output is good. [address] extubated 08/17 08/18: Was on 2 L of oxygen, wean down to room air. Complete heart block, temporary pacer dependent. EP consulted. [address] 08/19: Patient developed lethargic today after pain medications. On 2 L via NC Temporary pacer dependent. [address] walked 120 feet with PT. tired appearing 08/21: Patient evaluated at bedside and reports that she would like to walk. Denies having any chest pain nausea or vomiting at this time. 08/22: Patient continues to have a Munoz catheter, and magnesium is 1.7 potassium 3.3 which were replaced. Patient sitting on bedside chair. Complete heart block and accelerated junctional underlying if no recovery would benefit from permanent pacemaker 08/23: On 1 L of oxygen via nasal cannula. No chest pain. Feels tired. Underwent 2D echocardiogram today. For permanent pacemaker 08/24 08/24: underwent Direct Left Bundle Dual Chamber Pacemaker Implantation (Jean) by Dr Jared Wilcox. -REVIEW OF SYSTEMS- GENERAL: as above -- OBJECTIVE -- VITALS (08/23 17:55 - 08/24 17:55): Temperature F: 97.9 (97.6 - 98.4) Temperature source: Oral Pulse Rate 100 (50 - 100) Respiratory rate: 29 (17 - 52) Blood pressure: 165/77 (96/51 - 180/79) Blood pressure source: Monitor I/Os (08/23 07:00 - 08/24 07:00): Net 20.00 Intake 450.00 Output 430 -EXAM- GENERAL: GENERAL: Elderly female, anxious, not in any acute distress. VITAL SIGNS: Weight is 61.3 kilograms. Body mass index 27.3. HEENT: Head is atraumatic. NECK: Supple. No thyromegaly. No JVD. CARDIOVASCULAR: Regular rate and rhythm. CHEST: sternotomy; 2/2 CTs out; PPM LUNGS: Coarse BS ABDOMEN: Soft, nondistended, nontender. No organomegaly. EXTREMITIES: No edema, cyanosis, or clubbing. Pedal pulses palpable. NEUROLOGIC: No focal deficit. -- DATA -- MEDICATIONS ACETAMINOPHEN 650 MG RECTAL Q4H PRN ALBUTEROL SULFATE 2.5 MG NEB RTQ6H PRN polyethylene glycoL 3350 1 PKT PO DAILY POTASSIUM CHLORIDE 20 MEQ PO ASDIR PRN CALCIUM GLUC IN NACL, ISO-OSM 2 GM IV ASDIR PRN ACETAMINOPHEN 650 MG PO Q4H PRN DOXYCYCLINE MONOHYDRATE 100 MG PO Q12HR ENOXAPARIN 30 MG SUBQ DAILY NITROGLYCERIN 0.4 MG SL Q5M PRN clopidogreL 75 MG PO DAILY SENNOSIDES 1 TAB PO DAILY POTASSIUM CHLORIDE 20 MEQ IV ASDIR (PRN) ASPIRIN 81 MG PO DAILY ATORVASTATIN CALCIUM 80 MG PO BEDTIME SODIUM CHLORIDE 10 mL 10 ML IV ASDIR HYOSCYAMINE SULFATE 0.125 MG PO DAILY PRN bisacodyL 10 MG RECTAL ASDIR PRN CYANOCOBALAMIN 500 MCG PO DAILY DEXTROSE 50%-WATER 25 ML IV ASDIR PRN clonazePAM 0.5 MG PO BEDTIME PRN GLUCAGON 1 MG IM ASDIR PRN SOD BIPHOS/POT PHOSPHATE 2 PKT PO ASDIR (PRN) DOCUSATE SODIUM 200 MG PO DAILY ONDANSETRON 4 MG PO Q6H PRN MONTELUKAST SODIUM 10 MG PO DAILY@1800 ONDANSETRON HCL/PF 4 MG IV Q6H PRN bisacodyL 10 MG RECTAL DAILY PRN MAGNESIUM 1 GM IV ASDIR PRN guaiFENesin 100 MG PO Q4H PRN SODIUM BICARBONATE 8.4% 50 MEQ IV .ONCE PRN FERROUS SULFATE 325 MG PO DAILY LABS CBC W/AUTO DIFF (08/24/23 03:37) WHITE BLOOD CELL 8.9 RED BLOOD CELL 3.38 L HEMOGLOBIN 9.7L L HEMATOCRIT 30.1L L MEAN CELL VOLUME 89.1 MEAN CELL HGB 28.7 MEAN CELL HGB CONCENTRATION 32.2 L RED CELL DISTRIBUTION WIDTH 15.6 PLATELET COUNT 353 MEAN PLATELET VOLUME 9.8 NEUTROPHIL % 59.3 LYMPHOCYTE % 25.8 MONOCYTE % 8.9 EOSINOPHIL % 3.8 BASOPHIL % 1.0 NEUTROPHIL # 5.29 LYMPHOCYTE # 2.30 MONOCYTE # 0.79 EOSINOPHIL # 0.34 BASOPHIL # 0.09 BASIC METABOLIC PANEL (08/24/23 03:37) SODIUM 139 POTASSIUM 3.9 CHLORIDE 108H H CARBON DIOXIDE 24 GLUCOSE 112H H BLOOD UREA NITROGEN 16 GLOMERULAR FILTRATION RATE >=60 max estimate CREATININE 0.60 CALCIUM 8.3 L MAG (08/24/23 03:37) MAGNESIUM 1.9 PHOS (08/24/23 03:37) PHOSPHOROUS 3.4 -- QUALITY -- -MEDICATIONS- - I attest that the foregoing medication list in the medical record is true, accurate, and complete to the best of my knowledge. -- ATTESTATION -- CARE ACTIVITIES / CARE COORDINATION: - I have reviewed the history and repeated the snyder elements - I have seen and examined this patient - I have reviewed the progress in the clinical course since the last examination - I have discussed the patient's condition with other members of the care team Signed in PatientKeeper by Marianne Mckay MD on 08/25/23 at 10:27 at 1027 ATTENTION *EDITS and/or ADDENDA must be made in Patient Keeper for this note. * * Edits and ammendments created in [employer] are not visible * * in Patient Keeper or the legal medical record ([facility]). * RPT #: [id number] END OF REPORT [facility] 2023-08-24 09:25:00 [facility] ([facility]) Cardiology Progress Notes REPORT #: [id number] REPORT STATUS: Signed DATE: 08/24/23 TIME: 924 PATIENT: ROCK GOMEZ UNIT #: [id number] ROOM #: P.0405 BED: A : 36 AGE: 88 SEX: F ATTEND: Marianne Mckay MD [facility] AUTHOR: Venus Junior MD CF1 ATTENTION *EDITS and/or ADDENDA must be made in Patient Keeper for this note. * * Edits and ammendments created in [employer] are not visible * * in Patient Keeper or the legal medical record ([facility]). * -- ASSESSMENT AND PLAN -- GENERAL ASSESSMENT: 88 years old lady who is s/p CABG X 3 with significant post CABG complete heart block. The patient has been in complete heart block persistently since surgery, EP following for transitioning her to PPM . EF is intact on post op echo. PROBLEMS: 1: Complete heart block, post-surgical A/P: -POD # 6 with complete heart block and accelerated junctional underlying -On temp pacemaker; out put 10 mV, HR 50 beats per minutes. -Temp pacer with threshold of 1 mV and therefore out put is set at 4-5. -Plan for permanent pacemaker today. -- SUBJECTIVE -- CHIEF COMPLAINT: Follow up on post op complete heart block . PATIENT NARRATIVE: no overnight issues, denied chest pain, shortness of breath or palpitations. -REVIEW OF SYSTEMS- COMMENT: No chest pain or palpitations. -- OBJECTIVE -- VITALS (08/23 09:25 - 08/24 09:25): Temperature F: 97.6 (97.6 - 98.5) Temperature source: Oral Pulse Rate 50 (50 - 59) Respiratory rate: 37 (21 - 45) Blood pressure: 126/60 (96/51 - 163/77) Blood pressure source: Monitor I/Os (08/23 07:00 - 08/24 07:00): Net 20.00 Intake 450.00 Output 430 -EXAM- GENERAL: Well developed, well nourished, in no apparent distress. HEAD: Normocephalic, atraumatic. MOUTH: Oropharynx without deformities or lesions, normal mucosa.. NECK: No masses, no thyromegaly, no abnormal cervical nodes, trachea midline. CHEST: Grossly normal appearance. mid-sternotomy wound clear and intact. LUNGS: Clear bilaterally with normal respiratory effort. HEART: Regular rate and rhythm, normal S1, S2, no murmurs, no rubs, no gallops, no clicks. ABDOMEN: Soft, non-tender, no organomegaly, no masses noted. MUSCULOSKELETAL: No deformity, no scoliosis noted of thoracic or lumbar spine, joint ROM grossly normal, normal gait and station. EXTREMITIES: No clubbing, no cyanosis, no edema. NEUROLOGICAL: No focal deficits, cranial nerves II-XII grossly intact, normal sensation, normal reflexes, normal coordination, normal muscle strength, normal tone. PULSES: Pulses normal in all extremities. -- DATA -- MEDICATIONS ACETAMINOPHEN 650 MG RECTAL Q4H PRN ALBUTEROL SULFATE 2.5 MG NEB RTQ6H PRN polyethylene glycoL 3350 1 PKT PO DAILY POTASSIUM CHLORIDE 20 MEQ PO ASDIR PRN CALCIUM GLUC IN NACL, ISO-OSM 2 GM IV ASDIR PRN ACETAMINOPHEN 650 MG PO Q4H PRN ENOXAPARIN 30 MG SUBQ DAILY NITROGLYCERIN 0.4 MG SL Q5M PRN clopidogreL 75 MG PO DAILY SENNOSIDES 1 TAB PO DAILY POTASSIUM CHLORIDE 20 MEQ IV ASDIR (PRN) ASPIRIN 81 MG PO DAILY ATORVASTATIN CALCIUM 80 MG PO BEDTIME SODIUM CHLORIDE 10 mL 10 ML IV ASDIR HYOSCYAMINE SULFATE 0.125 MG PO DAILY PRN bisacodyL 10 MG RECTAL ASDIR PRN CYANOCOBALAMIN 500 MCG PO DAILY DEXTROSE 50%-WATER 25 ML IV ASDIR PRN clonazePAM 0.5 MG PO BEDTIME PRN GLUCAGON 1 MG IM ASDIR PRN SOD BIPHOS/POT PHOSPHATE 2 PKT PO ASDIR (PRN) DOCUSATE SODIUM 200 MG PO DAILY ONDANSETRON 4 MG PO Q6H PRN MONTELUKAST SODIUM 10 MG PO DAILY@1800 ONDANSETRON HCL/PF 4 MG IV Q6H PRN bisacodyL 10 MG RECTAL DAILY PRN MAGNESIUM 1 GM IV ASDIR PRN guaiFENesin 100 MG PO Q4H PRN SODIUM BICARBONATE 8.4% 50 MEQ IV .ONCE PRN FERROUS SULFATE 325 MG PO DAILY LABS CBC W/AUTO DIFF (08/24/23 03:37) WHITE BLOOD CELL 8.9 RED BLOOD CELL 3.38 L HEMOGLOBIN 9.7L L HEMATOCRIT 30.1L L MEAN CELL VOLUME 89.1 MEAN CELL HGB 28.7 MEAN CELL HGB CONCENTRATION 32.2 L RED CELL DISTRIBUTION WIDTH 15.6 PLATELET COUNT 353 MEAN PLATELET VOLUME 9.8 NEUTROPHIL % 59.3 LYMPHOCYTE % 25.8 MONOCYTE % 8.9 EOSINOPHIL % 3.8 BASOPHIL % 1.0 NEUTROPHIL # 5.29 LYMPHOCYTE # 2.30 MONOCYTE # 0.79 EOSINOPHIL # 0.34 BASOPHIL # 0.09 BASIC METABOLIC PANEL (08/24/23 03:37) SODIUM 139 POTASSIUM 3.9 CHLORIDE 108H H CARBON DIOXIDE 24 GLUCOSE 112H H BLOOD UREA NITROGEN 16 GLOMERULAR FILTRATION RATE >=60 max estimate CREATININE 0.60 CALCIUM 8.3 L MAG (08/24/23 03:37) MAGNESIUM 1.9 PHOS (08/24/23 03:37) PHOSPHOROUS 3.4 Signed in PatientKeeper by VENUS JUNIOR MD CF1 on 08/24/23 at 09:30 Cosigned by JARED WILCOX MD on 09/04/23 at 08:39 at 0839 at 0839 ATTENTION *EDITS and/or ADDENDA must be made in Patient Keeper for this note. * * Edits and ammendments created in [employer] are not visible * * in Patient Keeper or the legal medical record ([facility]). * RPT #: [id number] END OF REPORT [facility] 2023-08-24 08:41:00 [facility] ([facility]) Intensive Care Progress Note REPORT #: [id number] REPORT STATUS: Signed DATE: 08/24/23 TIME: 840 PATIENT: ROCK GOMEZ UNIT #: [id number] ROOM #: P.0307 BED: 1 : 36 AGE: 88 SEX: F ATTEND: Marianne Mckay MD ADM AUTHOR: Caitlin Bosch MD ATTENTION *EDITS and/or ADDENDA must be made in Patient Keeper for this note. * * Edits and ammendments created in [employer] are not visible * * in Patient Keeper or the legal medical record ([facility]). * -- ASSESSMENT AND PLAN -- HOSPITAL COURSE TO DATE: Ms. Gomez is an 88 yr old F with a PMHx of HTN, HLD, Asthma, Anxiety, Chronic Bronchitis and CAD s/p Angioplasty in 2011 who was transferred to the CVICU from the OR on 08/17 after CABG X 3 (SCHWARTZ-LAD, rSVG-PDA, rSVG-OM) by Dr. Montiel. Remains bradycic paced. NPO this am GENERAL ASSESSMENT: I examined her, reviewed her EMR information and data and discussed her plan of care with supporting clinical and ancillary services. Assessment and Plan Neuro ICU analgesia H/o Anxiety Acute postop pain - On Acetaminophen - On prn Clonazepam - Serially reassessing Pulm Acute resp insufficiency H/o Asthma H/o Chronic bronchitis - Supplemental O2 to keep SPO2 > 94%, sating well on RA - CXR with LLL atelectasis PLEFF - On Cingulair - Pulm Hygiene CVS S/p CABG X 3 as above H/o mv CAD Acute chronotropic incompetence LVH H/o HTN - Fully paced with adequate BP - On ASA, Plavix, Statin - BB to be considered once PPM in place - D/w Dr. Montiel who is following - For PPM today GI Nutrition - Resume Cardiac diet and supplements afterward Renal Acute prerenal azotemia Uremic/Hyperchloremic metabolic acidosis Fluid overload - PRN diuresis, - Replete elec per ICU protocol Heme Acute blood loss anemia - Adequate H/h and equilibrating - Serially reassessing Endo Euglycemia H/o HLD - Covering with ISS. - On Statin ID Afebrile without leukocytosis - No overt ID focus - No need for ABx at this point Prophylaxis - SCDs - Lovenox Medications reviewed with the Clinical Pharmacist Full Code per patient preop. Will inquire with family about Advance care guidelines -- OBJECTIVE -- VITALS (08/23 08:41 - 08/24 08:41): Temperature F: 98.2 (98.1 - 98.5) Temperature source: Oral Pulse Rate 50 (50 - 59) Respiratory rate: 37 (21 - 45) Blood pressure: 126/60 (96/51 - 163/77) Blood pressure source: Monitor I/Os (08/23 07:00 - 08/24 07:00): Net 20.00 Intake 450.00 Output 430 COMMENTS: Objective - General - Alert, oriented x2. Heart - RRR, Soft S1 S2, S. murmur III Chest - Decrease air entry on the lower zones > R w bronchial breathing in the R lower zones. No wheezes Abd - Soft, lax, NT, ND, -ve BS LE - Trace LE edema Skin - No rash Neck - Supple, non tender -- DATA -- MEDICATIONS ACETAMINOPHEN 650 MG RECTAL Q4H PRN ALBUTEROL SULFATE 2.5 MG NEB RTQ6H PRN polyethylene glycoL 3350 1 PKT PO DAILY POTASSIUM CHLORIDE 20 MEQ PO ASDIR PRN CALCIUM GLUC IN NACL, ISO-OSM 2 GM IV ASDIR PRN ACETAMINOPHEN 650 MG PO Q4H PRN ENOXAPARIN 30 MG SUBQ DAILY NITROGLYCERIN 0.4 MG SL Q5M PRN clopidogreL 75 MG PO DAILY SENNOSIDES 1 TAB PO DAILY POTASSIUM CHLORIDE 20 MEQ IV ASDIR (PRN) ASPIRIN 81 MG PO DAILY ATORVASTATIN CALCIUM 80 MG PO BEDTIME SODIUM CHLORIDE 10 mL 10 ML IV ASDIR HYOSCYAMINE SULFATE 0.125 MG PO DAILY PRN bisacodyL 10 MG RECTAL ASDIR PRN CYANOCOBALAMIN 500 MCG PO DAILY DEXTROSE 50%-WATER 25 ML IV ASDIR PRN clonazePAM 0.5 MG PO BEDTIME PRN GLUCAGON 1 MG IM ASDIR PRN SOD BIPHOS/POT PHOSPHATE 2 PKT PO ASDIR (PRN) DOCUSATE SODIUM 200 MG PO DAILY ONDANSETRON 4 MG PO Q6H PRN MONTELUKAST SODIUM 10 MG PO DAILY@1800 ONDANSETRON HCL/PF 4 MG IV Q6H PRN bisacodyL 10 MG RECTAL DAILY PRN MAGNESIUM 1 GM IV ASDIR PRN guaiFENesin 100 MG PO Q4H PRN SODIUM BICARBONATE 8.4% 50 MEQ IV .ONCE PRN FERROUS SULFATE 325 MG PO DAILY LABS CBC W/AUTO DIFF (08/24/23 03:37) WHITE BLOOD CELL 8.9 RED BLOOD CELL 3.38 L HEMOGLOBIN 9.7L L HEMATOCRIT 30.1L L MEAN CELL VOLUME 89.1 MEAN CELL HGB 28.7 MEAN CELL HGB CONCENTRATION 32.2 L RED CELL DISTRIBUTION WIDTH 15.6 PLATELET COUNT 353 MEAN PLATELET VOLUME 9.8 NEUTROPHIL % 59.3 LYMPHOCYTE % 25.8 MONOCYTE % 8.9 EOSINOPHIL % 3.8 BASOPHIL % 1.0 NEUTROPHIL # 5.29 LYMPHOCYTE # 2.30 MONOCYTE # 0.79 EOSINOPHIL # 0.34 BASOPHIL # 0.09 BASIC METABOLIC PANEL (08/24/23 03:37) SODIUM 139 POTASSIUM 3.9 CHLORIDE 108H H CARBON DIOXIDE 24 GLUCOSE 112H H BLOOD UREA NITROGEN 16 GLOMERULAR FILTRATION RATE >=60 max estimate CREATININE 0.60 CALCIUM 8.3 L MAG (08/24/23 03:37) MAGNESIUM 1.9 PHOS (08/24/23 03:37) PHOSPHOROUS 3.4 -- ATTESTATION -- TIME SPENT ON PATIENT CARE: - Critical care separately billable procedure excluded from time 31 minutes CARE ACTIVITIES / CARE COORDINATION: - I have reviewed the history and repeated the snyder elements - I have seen and examined this patient - I have reviewed the progress in the clinical course since the last examination - I have discussed the patient's condition with other members of the care team Signed in PatientKeeper by Caitlin Bosch MD on 08/24/23 at 18:21 at 1821 ATTENTION *EDITS and/or ADDENDA must be made in Patient Keeper for this note. * * Edits and ammendments created in [employer] are not visible * * in Patient Keeper or the legal medical record ([facility]). * [facility] #: [id number] END OF REPORT [facility] 2023-08-24 08:01:00 [facility] ([facility]) Cardiology Progress Notes REPORT #: [id number] REPORT STATUS: Signed DATE: 08/24/23 TIME: 800 PATIENT: ROCK GOMEZ UNIT #: [id number] ROOM #: P.0405 BED: A : 36 AGE: 88 SEX: F ATTEND: Marianne Mckay MD ADM AUTHOR: Lisa Wing DO CF1 ATTENTION *EDITS and/or ADDENDA must be made in Patient Keeper for this note. * * Edits and ammendments created in [employer] are not visible * * in Patient Keeper or the legal medical record ([facility]). * -- CO-SIGNATURE -- COMMENTS: I have seen and examined the patient with the medical clinic manager fellow Dr. Lisa Wing MD on 08/24/2023. I have reviewed all the clinical information, lab investigations, and imaging data. I agree with the following examination, findings, assessment and plan. I was present and supervised. Signed in PatientKeeper by YUE GARZA MD on 09/01/23 at 09:03 -- ASSESSMENT AND PLAN -- HOSPITAL COURSE TO DATE: - 08/11 NSTEMI, downgraded to IMU --- - 08/17 s/p HPCSt4a (SCHWARTZ to LAD, SVG to OM1, SVG to PDA, 08/17/2023, Dr. Montiel); postop CHB - 08/18: persistent CHB, TPW in place - 08/19: persistent CHB, TPW in placed - 08/23: persistent CHB, EP consulted, plan for ppm 08/24, NPOaMN - 08/24: s/p PPM, interrogation in AM PROBLEMS: 1: NSTEMI (non-ST elevated myocardial infarction) A/P: - s/p [id number] (SCHWARTZ to LAD, SVG to OM1, SVG to PDA, 08/17/2023, Dr. Montiel) - TTE 08/09/2023 LVEF 40-44%, moderate MR -- repeat TTE 08/23 prelim read: LVEF >50%, no regional wall motion abnormalities - CT chest w/o contrast showed RUL PNA, Right pleural effusion, Plate-like atelectasis in the lower lobes. - On aspirin 81mg qd, clopidogrel 75mg qd, atorvastatin 80mg qd -- holding BB due to complete heart block - chest tube management per CT surgery - PT/OT/IS - cont to monitor and replete electrolytes 2: CAD (coronary artery disease) A/P: - s/p h/o PCI 2011 - s/p [id number] (SCHWARTZ to LAD, SVG to OM1, SVG to PDA, 08/17/2023, Dr. Montiel) - On aspirin 81mg qd, clopidogrel 75mg qd, atorvastatin 80mg qd -- holding BB due to CHB, can start after interrogation 08/25 - monitor on tele 3: Complete heart block, post-surgical A/P: - possible myocardial stunning postop - monitor on tele - TPW pacing - EP consulted, plan for ppm 08/24 -- SUBJECTIVE -- CHIEF COMPLAINT: AMELIA this AM. SAUNDRA overnight. s/p CABG. No new complaints.. Tele: V paced 50bpm, CHB w/ TPW -REVIEW OF SYSTEMS- COMMENT: 10 point ROS negative unless noted. -- OBJECTIVE -- VITALS (08/23 08:02 - 08/24 08:02): Temperature F: 98.2 (98.1 - 98.5) Temperature source: Oral Pulse Rate 50 (50 - 59) Respiratory rate: 37 (21 - 45) Blood pressure: 126/60 (96/51 - 163/77) Blood pressure source: Monitor I/Os (08/23 07:00 - 08/24 07:00): Net 20.00 Intake 450.00 Output 430 -EXAM- GENERAL: Well developed, well nourished, in no apparent distress. MOUTH: Oropharynx without deformities or lesions, normal mucosa. CHEST: sternotomy site dressing c/d/i; chest tubes in place, + TPW LUNGS: Clear bilaterally with normal respiratory effort. HEART: RRR, normal S1, S2, no murmurs ABDOMEN: Soft, non-tender EXTREMITIES: No clubbing, no cyanosis, no edema. NEUROLOGICAL: No focal deficits, cranial nerves II-XII grossly intact PULSES: Pulses normal in all extremities. SKIN: Intact without significant lesions, or rashes. PSYCHIATRIC: Alert and oriented to time, person, place. Normal mood and affect, intact judgment and insight. -- DATA -- MEDICATIONS ACETAMINOPHEN 650 MG RECTAL Q4H PRN ALBUTEROL SULFATE 2.5 MG NEB RTQ6H PRN polyethylene glycoL 3350 1 PKT PO DAILY POTASSIUM CHLORIDE 20 MEQ PO ASDIR PRN CALCIUM GLUC IN NACL, ISO-OSM 2 GM IV ASDIR PRN ACETAMINOPHEN 650 MG PO Q4H PRN ENOXAPARIN 30 MG SUBQ DAILY NITROGLYCERIN 0.4 MG SL Q5M PRN clopidogreL 75 MG PO DAILY SENNOSIDES 1 TAB PO DAILY POTASSIUM CHLORIDE 20 MEQ IV ASDIR (PRN) ASPIRIN 81 MG PO DAILY ATORVASTATIN CALCIUM 80 MG PO BEDTIME SODIUM CHLORIDE 10 mL 10 ML IV ASDIR HYOSCYAMINE SULFATE 0.125 MG PO DAILY PRN bisacodyL 10 MG RECTAL ASDIR PRN CYANOCOBALAMIN 500 MCG PO DAILY DEXTROSE 50%-WATER 25 ML IV ASDIR PRN clonazePAM 0.5 MG PO BEDTIME PRN GLUCAGON 1 MG IM ASDIR PRN SOD BIPHOS/POT PHOSPHATE 2 PKT PO ASDIR (PRN) DOCUSATE SODIUM 200 MG PO DAILY ONDANSETRON 4 MG PO Q6H PRN MONTELUKAST SODIUM 10 MG PO DAILY@1800 ONDANSETRON HCL/PF 4 MG IV Q6H PRN bisacodyL 10 MG RECTAL DAILY PRN MAGNESIUM 1 GM IV ASDIR PRN guaiFENesin 100 MG PO Q4H PRN SODIUM BICARBONATE 8.4% 50 MEQ IV .ONCE PRN FERROUS SULFATE 325 MG PO DAILY LABS CBC W/AUTO DIFF (08/24/23 03:37) WHITE BLOOD CELL 8.9 RED BLOOD CELL 3.38 L HEMOGLOBIN 9.7L L HEMATOCRIT 30.1L L MEAN CELL VOLUME 89.1 MEAN CELL HGB 28.7 MEAN CELL HGB CONCENTRATION 32.2 L RED CELL DISTRIBUTION WIDTH 15.6 PLATELET COUNT 353 MEAN PLATELET VOLUME 9.8 NEUTROPHIL % 59.3 LYMPHOCYTE % 25.8 MONOCYTE % 8.9 EOSINOPHIL % 3.8 BASOPHIL % 1.0 NEUTROPHIL # 5.29 LYMPHOCYTE # 2.30 MONOCYTE # 0.79 EOSINOPHIL # 0.34 BASOPHIL # 0.09 BASIC METABOLIC PANEL (08/24/23 03:37) SODIUM 139 POTASSIUM 3.9 CHLORIDE 108H H CARBON DIOXIDE 24 GLUCOSE 112H H BLOOD UREA NITROGEN 16 GLOMERULAR FILTRATION RATE >=60 max estimate CREATININE 0.60 CALCIUM 8.3 L MAG (08/24/23 03:37) MAGNESIUM 1.9 PHOS (08/24/23 03:37) PHOSPHOROUS 3.4 Signed in PatientKeeper by LISA WING on 08/25/23 at 00:13 Cosigned by YUE GARZA MD on 09/01/23 at 09:03 at 0903 at 0903 ATTENTION *EDITS and/or ADDENDA must be made in Patient Keeper for this note. * * Edits and ammendments created in [employer] are not visible * * in Patient Keeper or the legal medical record ([facility]). * RPT #: [id number] END OF REPORT [facility] 2023-08-23 19:05:00 [facility] ([facility]) Hospitalist Progress Note REPORT #: [id number] REPORT STATUS: Signed DATE: 08/23/23 TIME: 190 PATIENT: ROCK GOMEZ UNIT #: [id number] ROOM #: P[facility] BED: 1 : 36 AGE: 88 SEX: F ATTEND: Marianne Mckay MD ADM AUTHOR: Marianne Mckay MD ATTENTION *EDITS and/or ADDENDA must be made in Patient Keeper for this note. * * Edits and ammendments created in [employer] are not visible * * in Patient Keeper or the legal medical record ([facility]). * -- ASSESSMENT AND PLAN -- GENERAL ASSESSMENT: ASSESSMENT AND PLAN: 1. Non-ST segment elevation myocardial infarction in a patient with a known history of severe multivessel coronary artery disease including proximal 80% LAD, 90% ostial and proximal circumflex and distal RCA with stent occlusion, preserved left ventricular ejection fraction on angiogram. The patient has recently been evaluated by Dr. King Montiel of Cardiothoracic Surgery services for consideration of coronary artery bypass and grafting. We will continue aspirin, heparin, beta blockers, statins and nitroglycerin. The patient underwent 3V CABG, SCHWARTZ to LAD, saphenous vein graft to the obtuse marginal and saphenous vein graft to the posterior descending artery by Dr King Montiel 08/17/20. EBL 750 cc. Received 2 units of PRBC and 2 Cell Saver. Urine output is good. [address] extubated POD 0 2. Pulmonary edema, related to decompensated diastolic congestive cardiac failure. Cautious use of diuretics. 3. Hypertension. Continue metoprolol and losartan. 4. Hyperlipidemia. Total cholesterol 226, HDL 90, LDL 139, triglycerides 121. Continue atorvastatin 80 mg daily. 5. Hypomagnesemia, replete. 6. Asthma. Continue montelukast. 7. Anxiety, not otherwise specified. Continue lorazepam. 8. Acute exacerbation of likely diastolic congestive heart failure. Diurese as above. 9. Osteoarthritis, avoid nonsteroidals. 10. Chronic kidney disease, stage II. 11. Hypokalemia, replete 12. Complete heart block, temporary pacer dependent. for CHB 08/24. 13. Atelectasis. ADDITIONAL COMMENTS: The patient underwent 3V CABG, SCHWARTZ to LAD, saphenous vein graft to the obtuse marginal and saphenous vein graft to the posterior descending artery by Dr King Montiel 08/17/20. extubated 08/17. plans for CHB 08/24. -- SUBJECTIVE -- HPI: This 88-year-old female, a patient of Dr. Gianna Ambrose, has a past medical history significant for hypertension, hyperlipidemia, asthma, anxiety, chronic bronchitis, and coronary artery disease, status post angioplasty in 2011. A few weeks ago, the patient developed new onset of jaw pain and dyspnea, and noninvasive cardiac workup by Dr. Ambrose including a nuclear stress test showed an ejection fraction of 34% with severe inferolateral and posterolateral ischemia, a change from a previously normal ejection fraction of 55% to 60% in 06/2023. Subsequent coronary angiogram on 07/31/2023 showed severe multivessel coronary artery disease including 80% proximal LAD, 90% ostial and proximal circumflex, heavily calcified RCA with a distal occluded stent, and an ejection fraction during the heart catheterization to be 55%, elevated left ventricular end diastolic pressure at 33. The patient was evaluated by Dr. King Montiel of Cardiothoracic Surgery services on 08/06 and discussions were underway as regards to possible bypass surgery. Since that time, the patient has had increased anxiety about the possibility of undergoing bypass surgery and has not been able to sleep or rest well. On the morning of admission, she developed central chest pressure with radiation to the jaw and worsening shortness of breath. She presented to the [facility] in [place], [place], where troponin was elevated to 300 range and EKG was negative for ST elevation. She was also found to be in fluid overload, started on ACS protocol, heparin, Lasix and transferred to the [facility] for higher level of care. Troponin has trended up 530 and BNP 539, and chest x-ray shows interstitial pulmonary edema/infiltrates. She is being admitted to the intensive care unit for further evaluation and management. PATIENT NARRATIVE: 08/10: No acute events overnight. No significant chest pain or shortness of breath. Anxious. Troponin is trending down. On intravenous heparin, beta-blockers aspirin and statins. Plavix is on hold in case the patient goes for CABG. Cardiology and cardiothoracic surgery services following. Await further recommendations 08/11: No chest pain jaw pain or arm pain. On heparin infusion. Plans for high risk CABG week of 08/[address] King Montiel. The patient is being transitioned out to CV IMU, pending CABG. Walked 320 feet with physical therapy 08/12: Denies any chest pain or shortness of breath. No headache or dizziness. No nausea or vomiting. Has chronic constipation. On heparin infusion. Plans for high risk CABG week of 08/[address] King Montiel 08/13: No acute events overnight. No chest pain or shortness of breath. No headache or dizziness. The patient was reluctant to get her blood drawn for the PTT, explained to by the nurses. Agreeable. PTT therapeutic. Potassium low, 2.9, replaced On Lasix 40 mg IV daily. Intake and output are not accurate. Walked about 320 feet with physical therapy. 08/14: No acute events overnight. Just anxious, taking her benzodiazepines. On heparin infusion. On diuretics and electrolyte replacement. Plans for high risk CABG week of 08/[address] King Montiel. 08/15: Heparin stopped by Dr. King Montiel. Surgery most likely 08/17. In general doing okay. No chest pain or shortness of breath. No headache or dizziness. Anxious. 08/16: No acute events. No chest pain or shortness of breath. In general feels all right. Plans for high risk CABG 08/[address] King Montiel 08/17: The patient underwent 3V CABG, SCHWARTZ to LAD, saphenous vein graft to the obtuse marginal and saphenous vein graft to the posterior descending artery by Dr King Montiel 08/17/20. EBL 750 cc. Received 2 units of PRBC and 2 Cell Saver. Urine output is good. [address] extubated 08/17 08/18: Was on 2 L of oxygen, wean down to room air. Complete heart block, temporary pacer dependent. EP consulted. [address]. 08/19: Patient developed lethargic today after pain medications. On 2 L via NC Temporary pacer dependent. [address]. walked 120 feet with PT. tired appearing 08/21: Patient evaluated at bedside and reports that she would like to walk. Denies having any chest pain nausea or vomiting at this time. 08/22: Patient continues to have a Munoz catheter, and magnesium is 1.7 potassium 3.3 which were replaced. Patient sitting on bedside chair. Complete heart block and accelerated junctional underlying if no recovery would benefit from permanent pacemaker 08/23: On 1 L of oxygen via nasal cannula. No chest pain. Feels tired. Underwent 2D echocardiogram today. For permanent pacemaker 08/24 -REVIEW OF SYSTEMS- GENERAL: as above -- OBJECTIVE -- VITALS (08/22 22:40 - 08/23 22:40): Temperature F: 98.5 (98.0 - 98.5) Temperature source: Oral Pulse Rate 57 (50 - 59) Respiratory rate: 34 (24 - 45) Blood pressure: 126/58 (110/54 - 173/77) Blood pressure source: Monitor I/Os (08/22 07:00 - 08/23 07:00): Net -205 Intake 150 Output 355 -EXAM- GENERAL: GENERAL: Elderly female, anxious, not in any acute distress. VITAL SIGNS: Weight is 61.3 kilograms. Body mass index 27.3. HEENT: Head is atraumatic. NECK: Supple. No thyromegaly. No JVD. CARDIOVASCULAR: Regular rate and rhythm. CHEST: sternotomy; 2/2 CTs out LUNGS: Coarse BS ABDOMEN: Soft, nondistended, nontender. No organomegaly. EXTREMITIES: No edema, cyanosis, or clubbing. Pedal pulses palpable. NEUROLOGIC: No focal deficit. -- DATA -- MEDICATIONS ACETAMINOPHEN 650 MG RECTAL Q4H PRN ALBUTEROL SULFATE 2.5 MG NEB RTQ6H PRN polyethylene glycoL 3350 1 PKT PO DAILY POTASSIUM CHLORIDE 20 MEQ PO ASDIR PRN CALCIUM GLUC IN NACL, ISO-OSM 2 GM IV ASDIR PRN ACETAMINOPHEN 650 MG PO Q4H PRN ENOXAPARIN 30 MG SUBQ DAILY NITROGLYCERIN 0.4 MG SL Q5M PRN clopidogreL 75 MG PO DAILY SENNOSIDES 1 TAB PO DAILY POTASSIUM CHLORIDE 20 MEQ IV ASDIR (PRN) ASPIRIN 81 MG PO DAILY ATORVASTATIN CALCIUM 80 MG PO BEDTIME SODIUM CHLORIDE 10 mL 10 ML IV ASDIR HYOSCYAMINE SULFATE 0.125 MG PO DAILY PRN bisacodyL 10 MG RECTAL ASDIR PRN CYANOCOBALAMIN 500 MCG PO DAILY DEXTROSE 50%-WATER 25 ML IV ASDIR PRN clonazePAM 0.5 MG PO BEDTIME PRN GLUCAGON 1 MG IM ASDIR PRN SOD BIPHOS/POT PHOSPHATE 2 PKT PO ASDIR (PRN) DOCUSATE SODIUM 200 MG PO DAILY ONDANSETRON 4 MG PO Q6H PRN MONTELUKAST SODIUM 10 MG PO DAILY@1800 ONDANSETRON HCL/PF 4 MG IV Q6H PRN bisacodyL 10 MG RECTAL DAILY PRN MAGNESIUM 1 GM IV ASDIR PRN guaiFENesin 100 MG PO Q4H PRN SODIUM BICARBONATE 8.4% 50 MEQ IV .ONCE PRN FERROUS SULFATE 325 MG PO DAILY LABS BASIC METABOLIC PANEL (08/23/23 02:35) SODIUM 139 POTASSIUM 4.4 CHLORIDE 108H H CARBON DIOXIDE 21 GLUCOSE 114H H BLOOD UREA NITROGEN 18 GLOMERULAR FILTRATION RATE >=60 max estimate CREATININE 0.70 CALCIUM 8.6 L PHOS (08/23/23 02:35) PHOSPHOROUS 3.8 CBC W/AUTO DIFF (08/23/23 02:35) WHITE BLOOD CELL 8.7 RED BLOOD CELL 3.61 L HEMOGLOBIN 10.3L L HEMATOCRIT 32.1L L MEAN CELL VOLUME 88.9 MEAN CELL HGB 28.5 MEAN CELL HGB CONCENTRATION 32.1 L RED CELL DISTRIBUTION WIDTH 15.4 PLATELET COUNT 340 MEAN PLATELET VOLUME 9.8 NEUTROPHIL % 61.9 LYMPHOCYTE % 25.1 MONOCYTE % 9.4 H EOSINOPHIL % 1.6 BASOPHIL % 0.9 NEUTROPHIL # 5.38 LYMPHOCYTE # 2.18 MONOCYTE # 0.82 H EOSINOPHIL # 0.14 BASOPHIL # 0.08 MAG (08/23/23 02:35) MAGNESIUM 2.2 -- QUALITY -- -MEDICATIONS- - I attest that the foregoing medication list in the medical record is true, accurate, and complete to the best of my knowledge. -- ATTESTATION -- CARE ACTIVITIES / CARE COORDINATION: - I have reviewed the history and repeated the snyedr elements - I have seen and examined this patient - I have reviewed the progress in the clinical course since the last examination - I have discussed the patient's condition with other members of the care team Signed in PatientKeeper by Marianne Mckay MD on 08/23/23 at 22:46 at 2246 ATTENTION *EDITS and/or ADDENDA must be made in Patient Keeper for this note. * * Edits and ammendments created in [employer] are not visible * * in Patient Keeper or the legal medical record (HPF). * RPT #: [id number] END OF REPORT [facility] 2023-08-23 15:27:00 [facility] ([facility]) Intensive Care Progress Note REPORT #: [id number] REPORT STATUS: Signed DATE: 08/23/23 TIME: 1526 PATIENT: ROCK GOMEZ UNIT #: [id number] ROOM #: P.0307 BED: 1 : 36 AGE: 88 SEX: F ATTEND: Marianne Mckay MD ADM AUTHOR: Bharati Hodges MD ATTENTION *EDITS and/or ADDENDA must be made in Patient Keeper for this note. * * Edits and ammendments created in [employer] are not visible * * in Patient Keeper or the legal medical record (HPF). * -- ASSESSMENT AND PLAN -- HOSPITAL COURSE TO DATE: Ms. Gomez is an 88 yr old F with a PMHx of HTN, HLD, Asthma, Anxiety, Chronic Bronchitis and CAD s/p Angioplasty in 2011 who was transferred to the CVICU from the OR on 08/17 after CABG X 3 (SCHWARTZ-LAD, rSVG-PDA, rSVG-OM) by Dr. Montiel. GENERAL ASSESSMENT: I examined her, reviewed her EMR information and data and discussed her plan of care with supporting clinical and ancillary services. Assessment and Plan ICU analgesia H/o Anxiety Acute postop pain - On Acetaminophen - On prn Clonazepam - Serially reassessing Acute resp insufficiency H/o Asthma H/o Chronic bronchitis - Adequate spaO2 on RA - pCXR with chronic changes and LLL atelectasis/effusion - On pulm hygiene, breathing Rx, diuresis, wean FiO2. - Serially reassessing S/p CABG X 3 as above H/o mv CAD Acute chronotropic incompetence LVH H/o HTN - Clean median sternotomy incision - Fully paced with adequate BP - On ASA, Plavix, Statin - Serially reassessing with exam, perfusion indices - D/w Dr. Montiel who is following - Being considered for PPM Nutrition - On Cardiac diet and supplements Acute prerenal azotemia Uremic/Hyperchloremic metabolic acidosis Fluid overload - Adequate UO on intermittent Lasix - Serially reassessing UO, lytes fluid status Acute blood loss anemia - Adequate H/h and equilibrating - Serially reassessing Euglycemia H/o HLD - Covering with ISS. - On Statin Afebrile without leukocytosis - No overt ID focus - Completed periop antibiotics Prophylaxis - SCDs - Lovenox Medications reviewed with the Clinical Pharmacist Full Code per patient preop. Will inquire with family about Advance care guidelines -- OBJECTIVE -- VITALS (08/22 15:27 - 08/23 15:27): Temperature F: 98.2 (98.0 - 98.2) Temperature source: Oral Pulse Rate 50 (50 - 52) Respiratory rate: 36 (19 - 43) Blood pressure: 146/65 (100/35 - 173/69) Blood pressure source: Monitor I/Os (08/22 07:00 - 08/23 07:00): Net -205 Intake 150 Output 355 -- DATA -- MEDICATIONS ACETAMINOPHEN 650 MG RECTAL Q4H PRN ALBUTEROL SULFATE 2.5 MG NEB RTQ6H PRN polyethylene glycoL 3350 1 PKT PO DAILY POTASSIUM CHLORIDE 20 MEQ PO ASDIR PRN CALCIUM GLUC IN NACL, ISO-OSM 2 GM IV ASDIR PRN ACETAMINOPHEN 650 MG PO Q4H PRN ENOXAPARIN 30 MG SUBQ DAILY NITROGLYCERIN 0.4 MG SL Q5M PRN clopidogreL 75 MG PO DAILY SENNOSIDES 1 TAB PO DAILY POTASSIUM CHLORIDE 20 MEQ IV ASDIR (PRN) ASPIRIN 81 MG PO DAILY ATORVASTATIN CALCIUM 80 MG PO BEDTIME SODIUM CHLORIDE 10 mL 10 ML IV ASDIR HYOSCYAMINE SULFATE 0.125 MG PO DAILY PRN bisacodyL 10 MG RECTAL ASDIR PRN CYANOCOBALAMIN 500 MCG PO DAILY DEXTROSE 50%-WATER 25 ML IV ASDIR PRN clonazePAM 0.5 MG PO BEDTIME PRN GLUCAGON 1 MG IM ASDIR PRN SOD BIPHOS/POT PHOSPHATE 2 PKT PO ASDIR (PRN) DOCUSATE SODIUM 200 MG PO DAILY ONDANSETRON 4 MG PO Q6H PRN MONTELUKAST SODIUM 10 MG PO DAILY@1800 ONDANSETRON HCL/PF 4 MG IV Q6H PRN bisacodyL 10 MG RECTAL DAILY PRN MAGNESIUM 1 GM IV ASDIR PRN guaiFENesin 100 MG PO Q4H PRN SODIUM BICARBONATE 8.4% 50 MEQ IV .ONCE PRN FERROUS SULFATE 325 MG PO DAILY LABS BASIC METABOLIC PANEL (08/23/23 02:35) SODIUM 139 POTASSIUM 4.4 CHLORIDE 108H H CARBON DIOXIDE 21 GLUCOSE 114H H BLOOD UREA NITROGEN 18 GLOMERULAR FILTRATION RATE >=60 max estimate CREATININE 0.70 CALCIUM 8.6 L PHOS (08/23/23 02:35) PHOSPHOROUS 3.8 CBC W/AUTO DIFF (08/23/23 02:35) WHITE BLOOD CELL 8.7 RED BLOOD CELL 3.61 L HEMOGLOBIN 10.3L L HEMATOCRIT 32.1L L MEAN CELL VOLUME 88.9 MEAN CELL HGB 28.5 MEAN CELL HGB CONCENTRATION 32.1 L RED CELL DISTRIBUTION WIDTH 15.4 PLATELET COUNT 340 MEAN PLATELET VOLUME 9.8 NEUTROPHIL % 61.9 LYMPHOCYTE % 25.1 MONOCYTE % 9.4 H EOSINOPHIL % 1.6 BASOPHIL % 0.9 NEUTROPHIL # 5.38 LYMPHOCYTE # 2.18 MONOCYTE # 0.82 H EOSINOPHIL # 0.14 BASOPHIL # 0.08 MAG (08/23/23 02:35) MAGNESIUM 2.2 ARTERIAL BLOOD GAS (08/22/23 17:58) ARTERIAL BLOOD GAS PH 7.49 H ARTERIAL BLOOD GAS PCO2 27.2 L ARTERIAL BLOOD GAS PO2 146.0 H BICARBONATE TOTAL HCO3 20.2 L BASE EXCESS -2.2 L ABG O2 SATURATION 99.1 ABG TYPE Arterial ARTERIAL FIO2 36.0 ABG VENT MODE NASAL CANNULA ALLENS TEST NOT APPLICABLE TOTAL HGB 10.2 D L TCO2 ARTERIAL 21.1 L PHOS (08/22/23 17:53) PHOSPHOROUS 3.2 COMPREHENSIVE METABOLIC PANEL (08/22/23 17:53) SODIUM 140 POTASSIUM 4.6 D CHLORIDE 110 H CARBON DIOXIDE 18 L GLUCOSE 108 H BLOOD UREA NITROGEN 18 GLOMERULAR FILTRATION RATE >=60 max estimate CREATININE 0.60 TOTAL PROTEIN 6.1 ALBUMIN 3.8 CALCIUM 8.2 L BILIRUBIN TOTAL 0.7 SGOT/AST 22 SGPT/ALT 11 ALKALINE PHOSPHATASE 86.0 MAG (08/22/23 17:53) MAGNESIUM 2.1 -- ATTESTATION -- TIME SPENT ON PATIENT CARE: - Critical Care: time spent apart from any procedure 42 minutes CARE ACTIVITIES / CARE COORDINATION: - I have reviewed the history and repeated the snyder elements - I have seen and examined this patient - I have reviewed the progress in the clinical course since the last examination - I have discussed the patient's condition with other members of the care team Signed in PatientKeeper by Bharati Hodges MD on 08/24/23 at 01:48 at 0148 ATTENTION *EDITS and/or ADDENDA must be made in Patient Keeper for this note. * * Edits and ammendments created in [employer] are not visible * * in Patient Keeper or the legal medical record ([facility]). * RPT #: [id number] END OF REPORT [facility] 2023-08-23 10:03:00 [facility] ([facility]) Progress Note REPORT #: [id number] REPORT STATUS: Signed DATE: 08/23/23 TIME: 1003 PATIENT: ROCK GOMEZ UNIT #: [id number] ROOM #: P.0307 BED: 1 : 36 AGE: 88 SEX: F ATTEND: Marianne Mckay MD ADM AUTHOR: Clinton De La Rosa MD ATTENTION *EDITS and/or ADDENDA must be made in Patient Keeper for this note. * * Edits and ammendments created in [employer] are not visible * * in Patient Keeper or the legal medical record ([facility]). * -- ASSESSMENT AND PLAN -- PROBLEMS: 1: NSTEMI (non-ST elevated myocardial infarction) A/P: Underwent CABG x 3 on 08/17/23. Transfused 2 RBC units and 2 cell saver units. - Monitor patient for any bleeding episodes. - Continue ASA and Plavix - Continue ferrous sulfate 325 mg PO daily. - Monitor urine output volume/color. - Check CBC, PTT, INR, and Fibrinogen daily. - Follow up with Cardiac surgery recs. - Encourage rehab/ambulation as tolerated. Follow up with PT/OT recs. -- SUBJECTIVE -- HPI: On 1L oxygen support. Net negative fluid balance over past [address] hours. Munoz catheter in place. Platelets and hemoglobin at target. -REVIEW OF SYSTEMS- EYES: Negative for blurry vision. No diplopia. EARS/NOSE/THROAT: Negative for sore throat. No otalgia. No rhinorrhea. RESPIRATORY: Negative for dyspnea or wheeze. No cough. CARDIOVASCULAR: Negative for chest pain or palpitations. No extremity swelling. GASTROINTESTINAL: Negative for abdominal pain or nausea. No emesis. No diarrhea. NEUROLOGICAL: Negative for headache. No vertigo. Denies paresthesias. PSYCHIATRIC: Negative for specific complaints. COMMENT: No chest pain or palpitations. -- OBJECTIVE -- VITALS (08/22 10:04 - 08/23 10:04): Temperature F: 98.0 (98.0 - 98.1) Temperature source: Oral Pulse Rate 50 (50 - 80) Respiratory rate: 36 (19 - 44) Blood pressure: 146/65 (100/34 - 173/69) Blood pressure source: Monitor I/Os (08/22 07:00 - 08/23 07:00): Net -205 Intake 150 Output 355 -EXAM- GENERAL: Well developed, well nourished, in no apparent distress. HEAD: Normocephalic, atraumatic. MOUTH: Oropharynx without deformities or lesions, normal mucosa.. NECK: No masses, no thyromegaly, no abnormal cervical nodes, trachea midline. CHEST: Grossly normal appearance. LUNGS: Clear bilaterally with normal respiratory effort. HEART: Regular rate and rhythm, normal S1, S2, no murmurs, no rubs, no gallops, no clicks. ABDOMEN: Soft, non-tender, no organomegaly, no masses noted. MUSCULOSKELETAL: No deformity, no scoliosis noted of thoracic or lumbar spine, joint ROM grossly normal, normal gait and station. EXTREMITIES: No clubbing, no cyanosis, no edema. NEUROLOGICAL: No focal deficits, cranial nerves II-XII grossly intact, normal sensation, normal reflexes, normal coordination, normal muscle strength, normal tone. PULSES: Pulses normal in all extremities. -- DATA -- MEDICATIONS ACETAMINOPHEN 650 MG RECTAL Q4H PRN ALBUTEROL SULFATE 2.5 MG NEB RTQ6H PRN polyethylene glycoL 3350 1 PKT PO DAILY POTASSIUM CHLORIDE 20 MEQ PO ASDIR PRN CALCIUM GLUC IN NACL, ISO-OSM 2 GM IV ASDIR PRN ACETAMINOPHEN 650 MG PO Q4H PRN ENOXAPARIN 30 MG SUBQ DAILY NITROGLYCERIN 0.4 MG SL Q5M PRN clopidogreL 75 MG PO DAILY SENNOSIDES 1 TAB PO DAILY POTASSIUM CHLORIDE 20 MEQ IV ASDIR (PRN) ASPIRIN 81 MG PO DAILY ATORVASTATIN CALCIUM 80 MG PO BEDTIME SODIUM CHLORIDE 10 mL 10 ML IV ASDIR HYOSCYAMINE SULFATE 0.125 MG PO DAILY PRN bisacodyL 10 MG RECTAL ASDIR PRN CYANOCOBALAMIN 500 MCG PO DAILY DEXTROSE 50%-WATER 25 ML IV ASDIR PRN clonazePAM 0.5 MG PO BEDTIME PRN GLUCAGON 1 MG IM ASDIR PRN SOD BIPHOS/POT PHOSPHATE 2 PKT PO ASDIR (PRN) DOCUSATE SODIUM 200 MG PO DAILY ONDANSETRON 4 MG PO Q6H PRN MONTELUKAST SODIUM 10 MG PO DAILY@1800 ONDANSETRON HCL/PF 4 MG IV Q6H PRN bisacodyL 10 MG RECTAL DAILY PRN MAGNESIUM 1 GM IV ASDIR PRN guaiFENesin 100 MG PO Q4H PRN SODIUM BICARBONATE 8.4% 50 MEQ IV .ONCE PRN FERROUS SULFATE 325 MG PO DAILY LABS BASIC METABOLIC PANEL (08/23/23 02:35) SODIUM 139 POTASSIUM 4.4 CHLORIDE 108H H CARBON DIOXIDE 21 GLUCOSE 114H H BLOOD UREA NITROGEN 18 GLOMERULAR FILTRATION RATE >=60 max estimate CREATININE 0.70 CALCIUM 8.6 L PHOS (08/23/23 02:35) PHOSPHOROUS 3.8 CBC W/AUTO DIFF (08/23/23 02:35) WHITE BLOOD CELL 8.7 RED BLOOD CELL 3.61 L HEMOGLOBIN 10.3L L HEMATOCRIT 32.1L L MEAN CELL VOLUME 88.9 MEAN CELL HGB 28.5 MEAN CELL HGB CONCENTRATION 32.1 L RED CELL DISTRIBUTION WIDTH 15.4 PLATELET COUNT 340 MEAN PLATELET VOLUME 9.8 NEUTROPHIL % 61.9 LYMPHOCYTE % 25.1 MONOCYTE % 9.4 H EOSINOPHIL % 1.6 BASOPHIL % 0.9 NEUTROPHIL # 5.38 LYMPHOCYTE # 2.18 MONOCYTE # 0.82 H EOSINOPHIL # 0.14 BASOPHIL # 0.08 MAG (08/23/23 02:35) MAGNESIUM 2.2 ARTERIAL BLOOD GAS (08/22/23 17:58) ARTERIAL BLOOD GAS PH 7.49 H ARTERIAL BLOOD GAS PCO2 27.2 L ARTERIAL BLOOD GAS PO2 146.0 H BICARBONATE TOTAL HCO3 20.2 L BASE EXCESS -2.2 L ABG O2 SATURATION 99.1 ABG TYPE Arterial ARTERIAL FIO2 36.0 ABG VENT MODE NASAL CANNULA ALLENS TEST NOT APPLICABLE TOTAL HGB 10.2 D L TCO2 ARTERIAL 21.1 L PHOS (08/22/23 17:53) PHOSPHOROUS 3.2 COMPREHENSIVE METABOLIC PANEL (08/22/23 17:53) SODIUM 140 POTASSIUM 4.6 D CHLORIDE 110 H CARBON DIOXIDE 18 L GLUCOSE 108 H BLOOD UREA NITROGEN 18 GLOMERULAR FILTRATION RATE >=60 max estimate CREATININE 0.60 TOTAL PROTEIN 6.1 ALBUMIN 3.8 CALCIUM 8.2 L BILIRUBIN TOTAL 0.7 SGOT/AST 22 SGPT/ALT 11 ALKALINE PHOSPHATASE 86.0 MAG (08/22/23 17:53) MAGNESIUM 2.1 BLOOD GAS W/ELECTROLYTES (08/22/23 12:12) ARTERIAL BLOOD GAS PH 7.52 H ARTERIAL BLOOD GAS PCO2 29.2 L ARTERIAL BLOOD GAS PO2 78.4 L BICARBONATE TOTAL HCO3 23.3 BASE EXCESS 1.1 ABG O2 SATURATION 96.6 ARTERIAL FIO2 24.0 ABG VENT MODE Room Air ALLENS TEST NOT APPLICABLE SODIUM (POC) 137 POTASSIUM (POC) 3.53 L CHLORIDE (ARTERIAL) 102 GLUCOSE 166 H IONIZED CALCIUM 1.16 POC LACTIC ACID 1.81 TOTAL HGB 10.8 L OXYHEMOGLOBIN 95.8 CARBOXYHEMOGLOBIN 0.5 METHEMOGLOBIN <0.8 HHb 3.4 TCO2 ARTERIAL 24.2 COMPREHENSIVE METABOLIC PANEL (08/22/23 12:11) SODIUM 139 POTASSIUM 3.4 L CHLORIDE 108 H CARBON DIOXIDE 23 GLUCOSE 159 H BLOOD UREA NITROGEN 18 GLOMERULAR FILTRATION RATE >=60 max estimate CREATININE 0.70 TOTAL PROTEIN 6.0 ALBUMIN 3.8 CALCIUM 8.6 L BILIRUBIN TOTAL 0.7 SGOT/AST 23 SGPT/ALT 12 ALKALINE PHOSPHATASE 87.0 MAG (08/22/23 12:11) MAGNESIUM 2.2 PHOS (08/22/23 12:11) PHOSPHOROUS 2.2 L -- ATTESTATION -- TIME SPENT ON PATIENT CARE: - Direct 35 minutes CARE ACTIVITIES / CARE COORDINATION: - I have reviewed the history and repeated the snyder elements - I have seen and examined this patient - I have reviewed the progress in the clinical course since the last examination - I have discussed the patient's condition with other members of the care team Signed in PatientKeeper by Clinton De La Rosa MD on 08/23/23 at 10:07 at 1007 ATTENTION *EDITS and/or ADDENDA must be made in Patient Keeper for this note. * * Edits and ammendments created in [employer] are not visible * * in Patient Keeper or the legal medical record ([facility]). * RPT #: [id number] END OF REPORT [facility] 2023-08-23 09:40:00 [facility] ([facility]) Cardiology Progress Notes REPORT #: [id number] REPORT STATUS: Signed DATE: 08/23/23 TIME: 939 PATIENT: ROCK GOMEZ UNIT #: [id number] ROOM #: P.[id number] BED: A : 36 AGE: 88 SEX: F ATTEND: Marianne Mckay MD ADM AUTHOR: Venus Junior MD CF1 ATTENTION *EDITS and/or ADDENDA must be made in Patient Keeper for this note. * * Edits and ammendments created in [employer] are not visible * * in Patient Keeper or the legal medical record ([facility]). * -- CO-SIGNATURE -- COMMENTS: I obtained the history and performed the physical examination in supervision of Venus Junior MD. I concur with his findings with the following additions: NAEON. Remains ppm dependent Gen: NAD, A+Ox3 HEENT: anicteric sclera,MMM Neck: suppple, no JVD CV: RRR, aud s1/s2, no m/r/g Lungs: CTAB Abd: Soft, nondistended/nontender Neuro: Non-focal Psych: Alert, appropriate, mood and affect normal The plan is CHB -Remains pacer dependent. If no recovery plan for permanent pacemaker tomorrow Time spent on patient care: I spent > 30 minutes on patient care, including 15 minutes spent jointly with Venus Junior MD. > 50% of time spent on counseling/coordination of care Jared Wilcox MD Cardiac Vice President And Portfolio Manager [place] [facility]iac Arrhythmia Signed in PatientKeeper by JARED WILCOX MD on 09/04/23 at 08:39 -- ASSESSMENT AND PLAN -- PROBLEMS: 1: Complete heart block, post-surgical A/P: -POD # 5 with complete heart block and accelerated junctional underlying -On temp pacemaker; out put 10 mV, HR 50 beats per minutes. -Temp pacer with acceptable thresholds -Continue to observe, if no recovery would benefit from permanent pacemaker as per Dr Wilcox, -- SUBJECTIVE -- CHIEF COMPLAINT: Follow up on post op complete heart block . PATIENT NARRATIVE: Pt reported shortenss of breath overnight but her heart rate was pretty much dependent on the pacemaker. -REVIEW OF SYSTEMS- COMMENT: No chest pain or palpitations. -- OBJECTIVE -- VITALS (08/22 09:40 - 08/23 09:40): Temperature F: 98.0 (98.0 - 98.1) Temperature source: Oral Pulse Rate 50 (50 - 80) Respiratory rate: 36 (19 - 49) Blood pressure: 146/65 (100/34 - 173/69) Blood pressure source: Monitor I/Os (08/22 07:00 - 08/23 07:00): Net -205 Intake 150 Output 355 -EXAM- GENERAL: Well developed, well nourished, in no apparent distress. HEAD: Normocephalic, atraumatic. MOUTH: Oropharynx without deformities or lesions, normal mucosa.. NECK: No masses, no thyromegaly, no abnormal cervical nodes, trachea midline. CHEST: Grossly normal appearance. LUNGS: Clear bilaterally with normal respiratory effort. HEART: Regular rate and rhythm, normal S1, S2, no murmurs, no rubs, no gallops, no clicks. ABDOMEN: Soft, non-tender, no organomegaly, no masses noted. MUSCULOSKELETAL: No deformity, no scoliosis noted of thoracic or lumbar spine, joint ROM grossly normal, normal gait and station. EXTREMITIES: No clubbing, no cyanosis, no edema. NEUROLOGICAL: No focal deficits, cranial nerves II-XII grossly intact, normal sensation, normal reflexes, normal coordination, normal muscle strength, normal tone. PULSES: Pulses normal in all extremities. -- DATA -- MEDICATIONS ACETAMINOPHEN 650 MG RECTAL Q4H PRN ALBUTEROL SULFATE 2.5 MG NEB RTQ6H PRN polyethylene glycoL 3350 1 PKT PO DAILY POTASSIUM CHLORIDE 20 MEQ PO ASDIR PRN CALCIUM GLUC IN NACL, ISO-OSM 2 GM IV ASDIR PRN ACETAMINOPHEN 650 MG PO Q4H PRN ENOXAPARIN 30 MG SUBQ DAILY NITROGLYCERIN 0.4 MG SL Q5M PRN clopidogreL 75 MG PO DAILY SENNOSIDES 1 TAB PO DAILY POTASSIUM CHLORIDE 20 MEQ IV ASDIR (PRN) ASPIRIN 81 MG PO DAILY ATORVASTATIN CALCIUM 80 MG PO BEDTIME SODIUM CHLORIDE 10 mL 10 ML IV ASDIR HYOSCYAMINE SULFATE 0.125 MG PO DAILY PRN bisacodyL 10 MG RECTAL ASDIR PRN CYANOCOBALAMIN 500 MCG PO DAILY DEXTROSE 50%-WATER 25 ML IV ASDIR PRN clonazePAM 0.5 MG PO BEDTIME PRN GLUCAGON 1 MG IM ASDIR PRN SOD BIPHOS/POT PHOSPHATE 2 PKT PO ASDIR (PRN) DOCUSATE SODIUM 200 MG PO DAILY ONDANSETRON 4 MG PO Q6H PRN MONTELUKAST SODIUM 10 MG PO DAILY@1800 ONDANSETRON HCL/PF 4 MG IV Q6H PRN bisacodyL 10 MG RECTAL DAILY PRN MAGNESIUM 1 GM IV ASDIR PRN guaiFENesin 100 MG PO Q4H PRN SODIUM BICARBONATE 8.4% 50 MEQ IV .ONCE PRN FERROUS SULFATE 325 MG PO DAILY LABS BASIC METABOLIC PANEL (08/23/23 02:35) SODIUM 139 POTASSIUM 4.4 CHLORIDE 108H H CARBON DIOXIDE 21 GLUCOSE 114H H BLOOD UREA NITROGEN 18 GLOMERULAR FILTRATION RATE >=60 max estimate CREATININE 0.70 CALCIUM 8.6 L PHOS (08/23/23 02:35) PHOSPHOROUS 3.8 CBC W/AUTO DIFF (08/23/23 02:35) WHITE BLOOD CELL 8.7 RED BLOOD CELL 3.61 L HEMOGLOBIN 10.3L L HEMATOCRIT 32.1L L MEAN CELL VOLUME 88.9 MEAN CELL HGB 28.5 MEAN CELL HGB CONCENTRATION 32.1 L RED CELL DISTRIBUTION WIDTH 15.4 PLATELET COUNT 340 MEAN PLATELET VOLUME 9.8 NEUTROPHIL % 61.9 LYMPHOCYTE % 25.1 MONOCYTE % 9.4 H EOSINOPHIL % 1.6 BASOPHIL % 0.9 NEUTROPHIL # 5.38 LYMPHOCYTE # 2.18 MONOCYTE # 0.82 H EOSINOPHIL # 0.14 BASOPHIL # 0.08 MAG (08/23/23 02:35) MAGNESIUM 2.2 ARTERIAL BLOOD GAS (08/22/23 17:58) ARTERIAL BLOOD GAS PH 7.49 H ARTERIAL BLOOD GAS PCO2 27.2 L ARTERIAL BLOOD GAS PO2 146.0 H BICARBONATE TOTAL HCO3 20.2 L BASE EXCESS -2.2 L ABG O2 SATURATION 99.1 ABG TYPE Arterial ARTERIAL FIO2 36.0 ABG VENT MODE NASAL CANNULA ALLENS TEST NOT APPLICABLE TOTAL HGB 10.2 D L TCO2 ARTERIAL 21.1 L PHOS (08/22/23 17:53) PHOSPHOROUS 3.2 COMPREHENSIVE METABOLIC PANEL (08/22/23 17:53) SODIUM 140 POTASSIUM 4.6 D CHLORIDE 110 H CARBON DIOXIDE 18 L GLUCOSE 108 H BLOOD UREA NITROGEN 18 GLOMERULAR FILTRATION RATE >=60 max estimate CREATININE 0.60 TOTAL PROTEIN 6.1 ALBUMIN 3.8 CALCIUM 8.2 L BILIRUBIN TOTAL 0.7 SGOT/AST 22 SGPT/ALT 11 ALKALINE PHOSPHATASE 86.0 MAG (08/22/23 17:53) MAGNESIUM 2.1 BLOOD GAS W/ELECTROLYTES (08/22/23 12:12) ARTERIAL BLOOD GAS PH 7.52 H ARTERIAL BLOOD GAS PCO2 29.2 L ARTERIAL BLOOD GAS PO2 78.4 L BICARBONATE TOTAL HCO3 23.3 BASE EXCESS 1.1 ABG O2 SATURATION 96.6 ARTERIAL FIO2 24.0 ABG VENT MODE Room Air ALLENS TEST NOT APPLICABLE SODIUM (POC) 137 POTASSIUM (POC) 3.53 L CHLORIDE (ARTERIAL) 102 GLUCOSE 166 H IONIZED CALCIUM 1.16 POC LACTIC ACID 1.81 TOTAL HGB 10.8 L OXYHEMOGLOBIN 95.8 CARBOXYHEMOGLOBIN 0.5 METHEMOGLOBIN <0.8 HHb 3.4 TCO2 ARTERIAL 24.2 COMPREHENSIVE METABOLIC PANEL (08/22/23 12:11) SODIUM 139 POTASSIUM 3.4 L CHLORIDE 108 H CARBON DIOXIDE 23 GLUCOSE 159 H BLOOD UREA NITROGEN 18 GLOMERULAR FILTRATION RATE >=60 max estimate CREATININE 0.70 TOTAL PROTEIN 6.0 ALBUMIN 3.8 CALCIUM 8.6 L BILIRUBIN TOTAL 0.7 SGOT/AST 23 SGPT/ALT 12 ALKALINE PHOSPHATASE 87.0 MAG (08/22/23 12:11) MAGNESIUM 2.2 PHOS (08/22/23 12:11) PHOSPHOROUS 2.2 L Signed in PatientKeeper by VENUS JUNIOR MD CF1 on 08/23/23 at 09:43 Cosigned by JARED WILCOX MD on 09/04/23 at 08:39 at 0839 at 0839 ATTENTION *EDITS and/or ADDENDA must be made in Patient Keeper for this note. * * Edits and ammendments created in [employer] are not visible * * in Patient Keeper or the legal medical record (HPF). * [facility] #: [id number] END OF REPORT [facility] 2023-08-23 07:52:00 [facility] ([facility]) Cardiology Progress Notes REPORT #: [id number] REPORT STATUS: Signed DATE: 08/23/23 TIME: 751 PATIENT: ROCK GOMEZ UNIT #: [id number] ROOM #: [id number] BED: A : 36 AGE: 88 SEX: F ATTEND: Marianne Mckay MD ADM AUTHOR: Lisa Wing DO CF1 ATTENTION *EDITS and/or ADDENDA must be made in Patient Keeper for this note. * * Edits and ammendments created in [employer] are not visible * * in Patient Keeper or the legal medical record (HPF). * -- CO-SIGNATURE -- COMMENTS: I have personally seen and examined the patient independently, and reviewed the patient's history, exam, and all cardiac and laboratory data on 08/23/23. I agree with the history, physical, and the assessment and plan as outlined by Lisa Mon DO, Cardiovascular Fellow. Signed in PatientKeeper by HERSON CORONA MD on 09/05/23 at 14:10 -- ASSESSMENT AND PLAN -- HOSPITAL COURSE TO DATE: - 08/11 NSTEMI, downgraded to IMU --- - 08/17 s/p [id number] (SCHWARTZ to LAD, SVG to OM1, SVG to PDA, 08/17/2023, Dr. Montiel); postop CHB - 08/18: persistent CHB, TPW in place - 08/19: persistent CHB, TPW in placed - 08/23: persistent CHB, EP consulted, plan for ppm 08/24, NPOaMN GENERAL ASSESSMENT: The patient is an 88-year-old female (patient of Dr. Gianna Ambrose) has a PMHx of coronary artery disease (s/p PCI with 3 ALEC), family history of coronary artery disease, carotid artery disease, hypertension, hyperlipidemia, h/o nicotine use, asthma, chronic bronchitis, anxiety. She has been having chest pressure radiating to her jaw and shortness of breath for the past 3 weeks. She was evaluated by her medical clinic manager, had stress test on 07/28/2023 what was abnormal, showed cardiomyopathy, an EF of 34%, severe inferolateral, posterolateral ischemia. Echocardiogram (06/2023) showed an EF 55-60%, moderate MR. She had coronary angiogram on 07/31/23 and showed three vessel coronary artery disease, torturous aorta with small abdominal aortic aneurysm. elevated LVEDP that is not amenable for PCI. She was evaluated by CV surgery, Dr. Montiel, for CABG. She presented at an outside hospital with complaint of chest pain radiating to her left jaw, diaphoresis and she was ruled in NSTEMI. She was transferred here to [facility] for higher level of care. Chest x-ray showed interstitial and basilar airspace edema/infiltrates, cardiomegaly. Blood work showed troponin of 534.3, BNP 539, Mg 1.3. She denies chest pain, shortness of breath, palpitations now. Cardiology consulted for MVCAD. CT surgery planning CABG 08/17. PROBLEMS: 1: NSTEMI (non-ST elevated myocardial infarction) A/P: - s/p [id number] (SCHWARTZ to LAD, SVG to OM1, SVG to PDA, 08/17/2023, Dr. Montiel) - TTE 08/09/2023 LVEF 40-44%, moderate MR -- repeat TTE 08/23 prelim read: LVEF >50%, no regional wall motion abnormalities - CT chest w/o contrast showed RUL PNA, Right pleural effusion, Plate-like atelectasis in the lower lobes. - On aspirin 81mg qd, clopidogrel 75mg qd, atorvastatin 80mg qd, and metoprolol XL 25mg BID - chest tube management per CT surgery - PT/OT/IS - cont to monitor and replete electrolytes 2: CAD (coronary artery disease) A/P: - s/p h/o PCI 2011 - s/p [id number] (SCHWARTZ to LAD, SVG to OM1, SVG to PDA, 08/17/2023, Dr. Montiel) - On aspirin 81mg qd, clopidogrel 75mg qd, atorvastatin 80mg qd, and metoprolol XL 25mg BID - monitor on tele 3: Complete heart block, post-surgical A/P: - possible myocardial stunning postop - monitor on tele - TPW pacing - EP consulted, plan for ppm 08/24 -- SUBJECTIVE -- CHIEF COMPLAINT: AMELIA this AM. SAUNDRA overnight. s/p CABG. No new complaints.. Tele: V paced 50bpm, CHB w/ TPW -REVIEW OF SYSTEMS- COMMENT: 10 point ROS negative unless noted. -- OBJECTIVE -- VITALS (08/22 07:52 - 08/23 07:52): Temperature F: 98.1 (98.0 - 98.1) Temperature source: Oral Pulse Rate 50 (50 - 80) Respiratory rate: 36 (19 - 49) Blood pressure: 146/65 (100/34 - 173/73) Blood pressure source: Monitor I/Os (08/22 07:00 - 08/23 07:00): Net -205 Intake 150 Output 355 -EXAM- GENERAL: Well developed, well nourished, in no apparent distress. MOUTH: Oropharynx without deformities or lesions, normal mucosa. CHEST: sternotomy site dressing c/d/i; chest tubes in place, + TPW LUNGS: Clear bilaterally with normal respiratory effort. HEART: RRR, normal S1, S2, no murmurs ABDOMEN: Soft, non-tender EXTREMITIES: No clubbing, no cyanosis, no edema. NEUROLOGICAL: No focal deficits, cranial nerves II-XII grossly intact PULSES: Pulses normal in all extremities. SKIN: Intact without significant lesions, or rashes. PSYCHIATRIC: Alert and oriented to time, person, place. Normal mood and affect, intact judgment and insight. -- DATA -- MEDICATIONS ACETAMINOPHEN 650 MG RECTAL Q4H PRN ALBUTEROL SULFATE 2.5 MG NEB RTQ6H PRN polyethylene glycoL 3350 1 PKT PO DAILY POTASSIUM CHLORIDE 20 MEQ PO ASDIR PRN CALCIUM GLUC IN NACL, ISO-OSM 2 GM IV ASDIR PRN ACETAMINOPHEN 650 MG PO Q4H PRN ENOXAPARIN 30 MG SUBQ DAILY NITROGLYCERIN 0.4 MG SL Q5M PRN clopidogreL 75 MG PO DAILY SENNOSIDES 1 TAB PO DAILY POTASSIUM CHLORIDE 20 MEQ IV ASDIR (PRN) ASPIRIN 81 MG PO DAILY ATORVASTATIN CALCIUM 80 MG PO BEDTIME SODIUM CHLORIDE 10 mL 10 ML IV ASDIR HYOSCYAMINE SULFATE 0.125 MG PO DAILY PRN bisacodyL 10 MG RECTAL ASDIR PRN CYANOCOBALAMIN 500 MCG PO DAILY DEXTROSE 50%-WATER 25 ML IV ASDIR PRN clonazePAM 0.5 MG PO BEDTIME PRN GLUCAGON 1 MG IM ASDIR PRN SOD BIPHOS/POT PHOSPHATE 2 PKT PO ASDIR (PRN) DOCUSATE SODIUM 200 MG PO DAILY ONDANSETRON 4 MG PO Q6H PRN MONTELUKAST SODIUM 10 MG PO DAILY@1800 ONDANSETRON HCL/PF 4 MG IV Q6H PRN bisacodyL 10 MG RECTAL DAILY PRN MAGNESIUM 1 GM IV ASDIR PRN guaiFENesin 100 MG PO Q4H PRN SODIUM BICARBONATE 8.4% 50 MEQ IV .ONCE PRN FERROUS SULFATE 325 MG PO DAILY LABS BASIC METABOLIC PANEL (08/23/23 02:35) SODIUM 139 POTASSIUM 4.4 CHLORIDE 108H H CARBON DIOXIDE 21 GLUCOSE 114H H BLOOD UREA NITROGEN 18 GLOMERULAR FILTRATION RATE >=60 max estimate CREATININE 0.70 CALCIUM 8.6 L PHOS (08/23/23 02:35) PHOSPHOROUS 3.8 CBC W/AUTO DIFF (08/23/23 02:35) WHITE BLOOD CELL 8.7 RED BLOOD CELL 3.61 L HEMOGLOBIN 10.3L L HEMATOCRIT 32.1L L MEAN CELL VOLUME 88.9 MEAN CELL HGB 28.5 MEAN CELL HGB CONCENTRATION 32.1 L RED CELL DISTRIBUTION WIDTH 15.4 PLATELET COUNT 340 MEAN PLATELET VOLUME 9.8 NEUTROPHIL % 61.9 LYMPHOCYTE % 25.1 MONOCYTE % 9.4 H EOSINOPHIL % 1.6 BASOPHIL % 0.9 NEUTROPHIL # 5.38 LYMPHOCYTE # 2.18 MONOCYTE # 0.82 H EOSINOPHIL # 0.14 BASOPHIL # 0.08 MAG (08/23/23 02:35) MAGNESIUM 2.2 ARTERIAL BLOOD GAS (08/22/23 17:58) ARTERIAL BLOOD GAS PH 7.49 H ARTERIAL BLOOD GAS PCO2 27.2 L ARTERIAL BLOOD GAS PO2 146.0 H BICARBONATE TOTAL HCO3 20.2 L BASE EXCESS -2.2 L ABG O2 SATURATION 99.1 ABG TYPE Arterial ARTERIAL FIO2 36.0 ABG VENT MODE NASAL CANNULA ALLENS TEST NOT APPLICABLE TOTAL HGB 10.2 D L TCO2 ARTERIAL 21.1 L PHOS (08/22/23 17:53) PHOSPHOROUS 3.2 COMPREHENSIVE METABOLIC PANEL (08/22/23 17:53) SODIUM 140 POTASSIUM 4.6 D CHLORIDE 110 H CARBON DIOXIDE 18 L GLUCOSE 108 H BLOOD UREA NITROGEN 18 GLOMERULAR FILTRATION RATE >=60 max estimate CREATININE 0.60 TOTAL PROTEIN 6.1 ALBUMIN 3.8 CALCIUM 8.2 L BILIRUBIN TOTAL 0.7 SGOT/AST 22 SGPT/ALT 11 ALKALINE PHOSPHATASE 86.0 MAG (08/22/23 17:53) MAGNESIUM 2.1 BLOOD GAS W/ELECTROLYTES (08/22/23 12:12) ARTERIAL BLOOD GAS PH 7.52 H ARTERIAL BLOOD GAS PCO2 29.2 L ARTERIAL BLOOD GAS PO2 78.4 L BICARBONATE TOTAL HCO3 23.3 BASE EXCESS 1.1 ABG O2 SATURATION 96.6 ARTERIAL FIO2 24.0 ABG VENT MODE Room Air ALLENS TEST NOT APPLICABLE SODIUM (POC) 137 POTASSIUM (POC) 3.53 L CHLORIDE (ARTERIAL) 102 GLUCOSE 166 H IONIZED CALCIUM 1.16 POC LACTIC ACID 1.81 TOTAL HGB 10.8 L OXYHEMOGLOBIN 95.8 CARBOXYHEMOGLOBIN 0.5 METHEMOGLOBIN <0.8 HHb 3.4 TCO2 ARTERIAL 24.2 COMPREHENSIVE METABOLIC PANEL (08/22/23 12:11) SODIUM 139 POTASSIUM 3.4 L CHLORIDE 108 H CARBON DIOXIDE 23 GLUCOSE 159 H BLOOD UREA NITROGEN 18 GLOMERULAR FILTRATION RATE >=60 max estimate CREATININE 0.70 TOTAL PROTEIN 6.0 ALBUMIN 3.8 CALCIUM 8.6 L BILIRUBIN TOTAL 0.7 SGOT/AST 23 SGPT/ALT 12 ALKALINE PHOSPHATASE 87.0 MAG (08/22/23 12:11) MAGNESIUM 2.2 PHOS (08/22/23 12:11) PHOSPHOROUS 2.2 L Signed in PatientKeeper by LISA WING on 08/23/23 at 11:47 Cosigned by HERSON CORONA MD on 09/05/23 at 14:10 at 1410 at 1410 ATTENTION *EDITS and/or ADDENDA must be made in Patient Keeper for this note. * * Edits and ammendments created in [employer] are not visible * * in Patient Keeper or the legal medical record ([facility]). * RPT #: [id number] END OF REPORT [facility] 2023-08-22 14:01:00 [facility] ([facility]) Hospitalist Progress Note REPORT #: [id number] REPORT STATUS: Signed DATE: 08/22/23 TIME: 1401 PATIENT: ROCK GOMEZ UNIT #: [id number] ROOM #: P.[id number] BED: 1 : 36 AGE: 88 SEX: F ATTEND: Marianne Mckay MD ADM AUTHOR: Jethro Kilgore MD ATTENTION *EDITS and/or ADDENDA must be made in Patient Keeper for this note. * * Edits and ammendments created in [employer] are not visible * * in Patient Keeper or the legal medical record ([facility]). * -- ASSESSMENT AND PLAN -- GENERAL ASSESSMENT: ASSESSMENT AND PLAN: 1. Non-ST segment elevation myocardial infarction in a patient with a known history of severe multivessel coronary artery disease including proximal 80% LAD, 90% ostial and proximal circumflex and distal RCA with stent occlusion, preserved left ventricular ejection fraction on angiogram. The patient has recently been evaluated by Dr. King Montiel of Cardiothoracic Surgery services for consideration of coronary artery bypass and grafting. We will continue aspirin, heparin, beta blockers, statins and nitroglycerin. The patient underwent 3V CABG, SCHWARTZ to LAD, saphenous vein graft to the obtuse marginal and saphenous vein graft to the posterior descending artery by Dr King Montiel 08/17/20. EBL 750 cc. Received 2 units of PRBC and 2 Cell Saver. Urine output is good. extubated POD 0 2. Pulmonary edema, related to decompensated diastolic congestive cardiac failure. Cautious use of diuretics. 3. Hypertension. Continue metoprolol and losartan. 4. Hyperlipidemia. Total cholesterol 226, HDL 90, LDL 139, triglycerides 121. Continue atorvastatin 80 mg daily. 5. Hypomagnesemia, replete. 6. Asthma. Continue montelukast. 7. Anxiety, not otherwise specified. Continue lorazepam. 8. Acute exacerbation of likely diastolic congestive heart failure. Diurese as above. 9. Osteoarthritis, avoid nonsteroidals. 10. Chronic kidney disease, stage II. 11. Hypokalemia, replete 12. Complete heart block, temporary pacer dependent. EP consulted 13. Atelectasis. Disposition Complete heart block and accelerated junctional underlying if no recovery would benefit from permanent pacemaker. ADDITIONAL COMMENTS: The patient underwent 3V CABG, SCHWARTZ to LAD, saphenous vein graft to the obtuse marginal and saphenous vein graft to the posterior descending artery by Dr King Montiel 08/17/20. extubated 08/17. EP consult for CHB -- SUBJECTIVE -- HPI: This 88-year-old female, a patient of Dr. Gianna Ambrose, has a past medical history significant for hypertension, hyperlipidemia, asthma, anxiety, chronic bronchitis, and coronary artery disease, status post angioplasty in 2011. A few weeks ago, the patient developed new onset of jaw pain and dyspnea, and noninvasive cardiac workup by Dr. Ambrose including a nuclear stress test showed an ejection fraction of 34% with severe inferolateral and posterolateral ischemia, a change from a previously normal ejection fraction of 55% to 60% in 06/2023. Subsequent coronary angiogram on 07/31/2023 showed severe multivessel coronary artery disease including 80% proximal LAD, 90% ostial and proximal circumflex, heavily calcified RCA with a distal occluded stent, and an ejection fraction during the heart catheterization to be 55%, elevated left ventricular end diastolic pressure at 33. The patient was evaluated by Dr. King Montiel of Cardiothoracic Surgery services on 08/06 and discussions were underway as regards to possible bypass surgery. Since that time, the patient has had increased anxiety about the possibility of undergoing bypass surgery and has not been able to sleep or rest well. On the morning of admission, she developed central chest pressure with radiation to the jaw and worsening shortness of breath. She presented to the [facility] in [place], [place], where troponin was elevated to 300 range and EKG was negative for ST elevation. She was also found to be in fluid overload, started on ACS protocol, heparin, Lasix and transferred to the [facility] for higher level of care. Troponin has trended up 530 and BNP 539, and chest x-ray shows interstitial pulmonary edema/infiltrates. She is being admitted to the intensive care unit for further evaluation and management. PATIENT NARRATIVE: 08/10: No acute events overnight. No significant chest pain or shortness of breath. Anxious. Troponin is trending down. On intravenous heparin, beta-blockers aspirin and statins. Plavix is on hold in case the patient goes for CABG. Cardiology and cardiothoracic surgery services following. Await further recommendations 08/11: No chest pain jaw pain or arm pain. On heparin infusion. Plans for high risk CABG week of 08/[address] King Montiel. The patient is being transitioned out to CV IMU, pending CABG. Walked 320 feet with physical therapy 08/12: Denies any chest pain or shortness of breath. No headache or dizziness. No nausea or vomiting. Has chronic constipation. On heparin infusion. Plans for high risk CABG week of 08/[address] King Montiel 08/13: No acute events overnight. No chest pain or shortness of breath. No headache or dizziness. The patient was reluctant to get her blood drawn for the PTT, explained to by the nurses. Agreeable. PTT therapeutic. Potassium low, 2.9, replaced On Lasix 40 mg IV daily. Intake and output are not accurate. Walked about 320 feet with physical therapy. 08/14: No acute events overnight. Just anxious, taking her benzodiazepines. On heparin infusion. On diuretics and electrolyte replacement. Plans for high risk CABG week of 08/[address] King Montiel. 08/15: Heparin stopped by Dr. King Montiel. Surgery most likely 08/17. In general doing okay. No chest pain or shortness of breath. No headache or dizziness. Anxious. 08/16: No acute events. No chest pain or shortness of breath. In general feels all right. Plans for high risk CABG 08/[address] King Montiel 08/17: The patient underwent 3V CABG, SCHWARTZ to LAD, saphenous vein graft to the obtuse marginal and saphenous vein graft to the posterior descending artery by Dr King Montiel 08/17/20. EBL 750 cc. Received 2 units of PRBC and 2 Cell Saver. Urine output is good. [address] extubated 08/17 08/18: Was on 2 L of oxygen, wean down to room air. Complete heart block, temporary pacer dependent. EP consulted. [address]. 08/19: Patient developed lethargic today after pain medications. On 2 L via NC Temporary pacer dependent. [address]. walked 120 feet with PT. tired appearing 08/21: Patient evaluated at bedside and reports that she would like to walk. Denies having any chest pain nausea or vomiting at this time. 08/22: Patient continues to have a Munoz catheter, and magnesium is 1.7 potassium 3.3 which were replaced. Patient sitting on bedside chair. Complete heart block and accelerated junctional underlying if no recovery would benefit from permanent pacemaker. -REVIEW OF SYSTEMS- COMMENT: 10 point review of system was negative except as mentioned in the HPI. -- OBJECTIVE -- VITALS (08/21 14:01 - 08/22 14:01): Temperature F: 97.9 (97.9 - 98.8) Temperature source: Oral Pulse Rate 57 (57 - 80) Respiratory rate: 36 (24 - 49) Blood pressure: 100/34 (100/34 - 165/105) Blood pressure source: Arterial I/Os (08/21 07:00 - 08/22 07:00): Net 50.00 Intake 780.00 Output 730 -EXAM- OTHER: GENERAL: Elderly female, anxious, not in any acute distress. HEENT: Head is atraumatic. NECK: Supple. No thyromegaly. No JVD. CARDIOVASCULAR: Regular rate and rhythm. CHEST: sternotomy LUNGS: Coarse BS ABDOMEN: Soft, nondistended, nontender. No organomegaly. EXTREMITIES: No edema, cyanosis, or clubbing. Pedal pulses palpable. NEUROLOGIC: No focal deficit. -- DATA -- MEDICATIONS ACETAMINOPHEN 650 MG RECTAL Q4H PRN ALBUTEROL SULFATE 2.5 MG NEB RTQ6H PRN polyethylene glycoL 3350 1 PKT PO DAILY POTASSIUM CHLORIDE 20 MEQ PO ASDIR PRN CALCIUM GLUC IN NACL, ISO-OSM 2 GM IV ASDIR PRN ACETAMINOPHEN 650 MG PO Q4H PRN ENOXAPARIN 30 MG SUBQ DAILY NITROGLYCERIN 0.4 MG SL Q5M PRN clopidogreL 75 MG PO DAILY SENNOSIDES 1 TAB PO DAILY POTASSIUM CHLORIDE 20 MEQ IV ASDIR (PRN) ASPIRIN 81 MG PO DAILY ATORVASTATIN CALCIUM 80 MG PO BEDTIME SODIUM CHLORIDE 10 mL 10 ML IV ASDIR HYOSCYAMINE SULFATE 0.125 MG PO DAILY PRN bisacodyL 10 MG RECTAL ASDIR PRN CYANOCOBALAMIN 500 MCG PO DAILY DEXTROSE 50%-WATER 25 ML IV ASDIR PRN clonazePAM 0.5 MG PO BEDTIME PRN GLUCAGON 1 MG IM ASDIR PRN SOD BIPHOS/POT PHOSPHATE 2 PKT PO ASDIR (PRN) DOCUSATE SODIUM 200 MG PO DAILY ONDANSETRON 4 MG PO Q6H PRN MONTELUKAST SODIUM 10 MG PO DAILY@1800 ONDANSETRON HCL/PF 4 MG IV Q6H PRN bisacodyL 10 MG RECTAL DAILY PRN MAGNESIUM 1 GM IV ASDIR PRN SODIUM BICARBONATE 8.4% 50 MEQ IV .ONCE PRN MUPIROCIN 1 APPLIC NASAL BID FERROUS SULFATE 325 MG PO DAILY LABS COMPREHENSIVE METABOLIC PANEL (08/22/23 12:11) SODIUM 139 POTASSIUM 3.4 L CHLORIDE 108 H CARBON DIOXIDE 23 GLUCOSE 159 H BLOOD UREA NITROGEN 18 GLOMERULAR FILTRATION RATE >=60 max estimate CREATININE 0.70 TOTAL PROTEIN 6.0 ALBUMIN 3.8 CALCIUM 8.6 L BILIRUBIN TOTAL 0.7 SGOT/AST 23 SGPT/ALT 12 ALKALINE PHOSPHATASE 87.0 MAG (08/22/23 12:11) MAGNESIUM 2.2 PHOS (08/22/23 12:11) PHOSPHOROUS 2.2 L CBC W/AUTO DIFF (08/22/23 04:06) WHITE BLOOD CELL 8.0 RED BLOOD CELL 3.21 L HEMOGLOBIN 9.3L L HEMATOCRIT 28.5L L MEAN CELL VOLUME 88.8 MEAN CELL HGB 29.0 MEAN CELL HGB CONCENTRATION 32.6 L RED CELL DISTRIBUTION WIDTH 14.9 PLATELET COUNT 259 MEAN PLATELET VOLUME 9.4 NEUTROPHIL % 68.8 LYMPHOCYTE % 18.8 L MONOCYTE % 9.2 EOSINOPHIL % 1.5 BASOPHIL % 0.7 NEUTROPHIL # 5.53 LYMPHOCYTE # 1.51 MONOCYTE # 0.74 EOSINOPHIL # 0.12 BASOPHIL # 0.06 BASIC METABOLIC PANEL (08/22/23 04:06) SODIUM 141 POTASSIUM 3.3L L CHLORIDE 109H H CARBON DIOXIDE 21 GLUCOSE 93 BLOOD UREA NITROGEN 16 GLOMERULAR FILTRATION RATE >=60 max estimate CREATININE 0.50L L CALCIUM 8.0 L MAG (08/22/23 04:06) MAGNESIUM 1.7 -- ATTESTATION -- ADDITIONAL DETAIL: I have spent greater than 45 minutes with the patient and reviewing information for patient care. > 50% time spent on counseling/coordination of care Signed in PatientKeeper by JETHRO KILGORE MD on 08/22/23 at 14:05 at 1405 ATTENTION *EDITS and/or ADDENDA must be made in Patient Keeper for this note. * * Edits and ammendments created in [facility] are not visible * * in Patient Keeper or the legal medical record ([facility]). * RPT #: [id number] END OF REPORT [facility] 2023-08-22 11:05:00 [facility] ([facility]) Cardiology Progress Notes REPORT #: [id number] REPORT STATUS: Signed DATE: 08/22/23 TIME: 1105 PATIENT: ROCK GOMEZ UNIT #: [id number] ROOM #: P.[id number] BED: A : 36 AGE: 88 SEX: F ATTEND: Marianne Mckay MD ADM AUTHOR: Altaf Fernandes MD CF1 ATTENTION *EDITS and/or ADDENDA must be made in Patient Keeper for this note. * * Edits and ammendments created in [employer] are not visible * * in Patient Keeper or the legal medical record ([facility]). * -- CO-SIGNATURE -- COMMENTS: I have seen and examined the patient with the medical clinic manager fellow Dr. Altaf Fernandes MD on 08/22/2023. I have reviewed all the clinical information, lab investigations, and imaging data. I agree with the following examination, findings, assessment and plan. I was present and supervised. Signed in PatientKeeper by YUE GARZA MD on 09/01/23 at 08:43 -- ASSESSMENT AND PLAN -- HOSPITAL COURSE TO DATE: - 08/11 NSTEMI, downgraded to IMU --- - 08/17 s/p [id number] (SCHWARTZ to LAD, SVG to OM1, SVG to PDA, 08/17/2023, Dr. Montiel); postop CHB - 08/18: persistent CHB, TPW in place - 08/19: persistent CHB, TPW in placed -08/21: No acute events over the night. -08/22: No acute events, Pacing at 50 (decreased to 50 on 08/22/[address] Wilcox) GENERAL ASSESSMENT: 88-year-old female (patient of Dr. Gianna Ambrose) has a PMHx of coronary artery disease (s/p PCI with 3 ALEC), family history of coronary artery disease, carotid artery disease, hypertension, hyperlipidemia, h/o nicotine use, asthma, chronic bronchitis, anxiety. She has been having chest pressure radiating to her jaw and shortness of breath for the past 3 weeks. She was evaluated by her medical clinic manager, had stress test on 07/28/2023 what was abnormal, showed cardiomyopathy, an EF of 34%, severe inferolateral, posterolateral ischemia. Echocardiogram (06/2023) showed an EF 55-60%, moderate MR. She had coronary angiogram on 07/31/23 and showed three vessel coronary artery disease, torturous aorta with small abdominal aortic aneurysm. elevated LVEDP that is not amenable for PCI. She was evaluated by CV surgery, Dr. Montiel, for CABG. She presented at an outside hospital with complaint of chest pain radiating to her left jaw, diaphoresis and she was ruled in NSTEMI. She was transferred here to [facility] for higher level of care. She is s/p CABG x3V (SCHWARTZ-LAD, rSVG-OM1, rSVG-PDA) on 08/17/[address] Montiel. She was transferred to CVICU for post-op management and extubated POD. A/P ACS/NSTEMI (non-ST elevated myocardial infarction), S/p CABG x 3V on 08/17/23. Temporary pacer dependent, pacing decreased to 50 on 08/22/[address] Greet, and plan for PPM insertion. beta rashi on hold. - On DAPT with aspirin and clopidogrel - On atorvastatin 80mg daily - On PT/OT/IS -- SUBJECTIVE -- CHIEF COMPLAINT: No new c/o HPI: Reviewed PATIENT NARRATIVE: No acute events No c/o -- OBJECTIVE -- VITALS (08/21 11:05 - 08/22 11:05): Temperature F: 97.9 (97.5 - 98.8) Temperature source: Oral Pulse Rate 80 Respiratory rate: 49 (23 - 49) Blood pressure: 135/57 (100/49 - 160/103) Blood pressure source: Arterial I/Os (08/21 07:00 - 08/22 07:00): Net 50.00 Intake 780.00 Output 730 -EXAM- GENERAL: Well developed, well nourished, in no apparent distress. HEAD: Normocephalic, atraumatic. EYES: PERRL, EOM intact, conjunctiva and sclera clear, without nystagmus, lids normal. NOSE: No deformity, no discharge, no inflammation, no lesions. MOUTH: Oropharynx without deformities or lesions, normal mucosa. NECK: Supple, no JVD, trachea midline. R CVC noted CHEST: Surgical wound noted. LUNGS: Clear bilaterally with normal respiratory effort. No wheezes. HEART: Paced rhythm at 80, normal S1 and 2. ABDOMEN: Soft, non-tender, not distended, no guarding. MUSCULOSKELETAL: No deformity, joint ROM grossly normal. EXTREMITIES: No clubbing, no cyanosis, no edema. NEUROLOGICAL: Aox3. No focal deficits. PULSES: Pulses normal in all extremities. SKIN: Intact without significant lesions, or rashes. -- DATA -- MEDICATIONS ACETAMINOPHEN 650 MG RECTAL Q4H PRN ALBUTEROL SULFATE 2.5 MG NEB RTQ6H PRN polyethylene glycoL 3350 1 PKT PO DAILY POTASSIUM CHLORIDE 20 MEQ PO ASDIR PRN CALCIUM GLUC IN NACL, ISO-OSM 2 GM IV ASDIR PRN ACETAMINOPHEN 650 MG PO Q4H PRN ENOXAPARIN 30 MG SUBQ DAILY NITROGLYCERIN 0.4 MG SL Q5M PRN clopidogreL 75 MG PO DAILY SENNOSIDES 1 TAB PO DAILY POTASSIUM CHLORIDE 20 MEQ IV ASDIR (PRN) ASPIRIN 81 MG PO DAILY ATORVASTATIN CALCIUM 80 MG PO BEDTIME SODIUM CHLORIDE 10 mL 10 ML IV ASDIR HYOSCYAMINE SULFATE 0.125 MG PO DAILY PRN bisacodyL 10 MG RECTAL ASDIR PRN CYANOCOBALAMIN 500 MCG PO DAILY DEXTROSE 50%-WATER 25 ML IV ASDIR PRN clonazePAM 0.5 MG PO BEDTIME PRN GLUCAGON 1 MG IM ASDIR PRN SOD BIPHOS/POT PHOSPHATE 2 PKT PO ASDIR (PRN) DOCUSATE SODIUM 200 MG PO DAILY ONDANSETRON 4 MG PO Q6H PRN MONTELUKAST SODIUM 10 MG PO DAILY@1800 ONDANSETRON HCL/PF 4 MG IV Q6H PRN bisacodyL 10 MG RECTAL DAILY PRN MAGNESIUM 1 GM IV ASDIR PRN SODIUM BICARBONATE 8.4% 50 MEQ IV .ONCE PRN MUPIROCIN 1 APPLIC NASAL BID FERROUS SULFATE 325 MG PO DAILY LABS CBC W/AUTO DIFF (08/22/23 04:06) WHITE BLOOD CELL 8.0 RED BLOOD CELL 3.21 L HEMOGLOBIN 9.3L L HEMATOCRIT 28.5L L MEAN CELL VOLUME 88.8 MEAN CELL HGB 29.0 MEAN CELL HGB CONCENTRATION 32.6 L RED CELL DISTRIBUTION WIDTH 14.9 PLATELET COUNT 259 MEAN PLATELET VOLUME 9.4 NEUTROPHIL % 68.8 LYMPHOCYTE % 18.8 L MONOCYTE % 9.2 EOSINOPHIL % 1.5 BASOPHIL % 0.7 NEUTROPHIL # 5.53 LYMPHOCYTE # 1.51 MONOCYTE # 0.74 EOSINOPHIL # 0.12 BASOPHIL # 0.06 BASIC METABOLIC PANEL (08/22/23 04:06) SODIUM 141 POTASSIUM 3.3L L CHLORIDE 109H H CARBON DIOXIDE 21 GLUCOSE 93 BLOOD UREA NITROGEN 16 GLOMERULAR FILTRATION RATE >=60 max estimate CREATININE 0.50L L CALCIUM 8.0 L MAG (08/22/23 04:06) MAGNESIUM 1.7 Signed in PatientKeeper by Altaf Fernandes MD CF1 on 08/22/23 at 11:09 Cosigned by YUE GARZA MD on 09/01/23 at 08:43 at 0843 at 0843 ATTENTION *EDITS and/or ADDENDA must be made in Patient Keeper for this note. * * Edits and ammendments created in [employer] are not visible * * in Patient Keeper or the legal medical record ([facility]). * RPT #: [id number] END OF REPORT [facility] 2023-08-22 10:53:00 [facility] ([facility]) ElectroPhys. Consultation REPORT #: [id number] REPORT STATUS: Signed DATE: 08/22/23 TIME: 1053 PATIENT: ROCK GOMEZ UNIT #: [id number] ROOM #: P.0307 BED: 1 : 36 AGE: 88 SEX: F ATTEND: Marianne Mckay MD ADM AUTHOR: Jared Wilcox MD ATTENTION *EDITS and/or ADDENDA must be made in Patient Keeper for this note. * * Edits and ammendments created in [employer] are not visible * * in Patient Keeper or the legal medical record ([facility]). * -- ASSESSMENT AND PLAN -- PROBLEMS: 1: Complete heart block, post-surgical A/P: -POD #4 with complete heart block and accelerated junctional underlying -Temp pacer with acceptable thresholds -Continue to observe, if no recovery would benefit from permanent pacemaker -- HISTORY -- HPI: 88yo woman hx CAD s/p PCI, HTN, DLD, asthma, bronchitis with 3V CAD s/p bypass (SCHWARTZ-LAD, rSVG-OM1, rSVG-PDA) now in complete heart block. POD #4 s/p bypass with complete heart block. Currently in accelerated junctional with complete heart block. Temp pacer with acceptable thresholds. PAST MEDICAL HISTORY: as above PAST SURGICAL HISTORY: as above -SOCIAL HISTORY- -TOBACCO USE- DETAILS/COMMENTS: Quit smoking in the -- ALLERGIES/HOME MEDS -- ALLERGIES: codeine (Severe - Allergy) diphenhydramine (Severe - Allergy) Penicillins (Severe - Allergy) Tetanus Vaccines and Toxoid (Severe - Allergy) [EXTERNAL] ANATOXIN (UNKNOWN - External allergies are for display only, consider adding to medical record for drug interaction check) [EXTERNAL] Benadryl (UNKNOWN - External allergies are for display only, consider adding to medical record for drug interaction check) [EXTERNAL] codeine CODEINE (UNKNOWN - External allergies are for display only, consider adding to medical record for drug interaction check) [EXTERNAL] Codeine Sulfate (UNKNOWN - External allergies are for display only, consider adding to medical record for drug interaction check) [EXTERNAL] diphenhydramine From BENADRYL (UNKNOWN - External allergies are for display only, consider adding to medical record for drug interaction check) [EXTERNAL] Penicillin (UNKNOWN - External allergies are for display only, consider adding to medical record for drug interaction check) [EXTERNAL] Penicillins PENICILLINS (UNKNOWN - External allergies are for display only, consider adding to medical record for drug interaction check) [EXTERNAL] Tetanus Immune Globulin (UNKNOWN - External allergies are for display only, consider adding to medical record for drug interaction check) HOME MEDICATIONS: Aspirin EC Tab (Ecotrin Tab) 81 MG PO DAILY Atorvastatin Tab (Lipitor Tab) 80 MG PO DAILY Clopidogrel Tab (Plavix Tab) 75 MG PO DAILY Famotidine Tab (Pepcid Tab) 20 MG PO BID Hyoscyamine Tab (Levsin Tab) 0.125 MG PO BID LORazepam Tab (Ativan Tab) 0.5 MG PO Q8H Losartan Tab (Cozaar Tab) 100 MG PO DAILY Metoprolol Succinate XL Tab (Toprol XL Tab) Oral Montelukast Tab (Singulair Tab) 10 MG PO DAILY Naproxen Tab (Naprosyn Tab) 500 MG PO DAILY -- SUBJECTIVE -- -REVIEW OF SYSTEMS- GENERAL: negative unless otherwise specified in hpi -- OBJECTIVE -- VITALS (08/21 10:53 - 08/22 10:53): Temperature F: 97.9 (97.5 - 98.8) Temperature source: Oral Pulse Rate 80 Respiratory rate: 49 (23 - 49) Blood pressure: 135/57 (100/49 - 160/103) Blood pressure source: Arterial I/Os (08/21 07:00 - 08/22 07:00): Net 50.00 Intake 780.00 Output 730 -EXAM- GENERAL: Well developed, well nourished, in no apparent distress. LUNGS: Clear bilaterally with normal respiratory effort. HEART: Regular rate and rhythm, normal S1, S2, no murmurs, no rubs, no gallops, no clicks. ABDOMEN: Soft, non-tender, no organomegaly, no masses noted. EXTREMITIES: WWP, no edema. NEUROLOGICAL: No focal deficits, cranial nerves II-XII grossly intact, A+Ox3 -- DATA -- MEDICATIONS ACETAMINOPHEN 650 MG RECTAL Q4H PRN ALBUTEROL SULFATE 2.5 MG NEB RTQ6H PRN polyethylene glycoL 3350 1 PKT PO DAILY POTASSIUM CHLORIDE 20 MEQ PO ASDIR PRN CALCIUM GLUC IN NACL, ISO-OSM 2 GM IV ASDIR PRN ACETAMINOPHEN 650 MG PO Q4H PRN ENOXAPARIN 30 MG SUBQ DAILY NITROGLYCERIN 0.4 MG SL Q5M PRN clopidogreL 75 MG PO DAILY SENNOSIDES 1 TAB PO DAILY POTASSIUM CHLORIDE 20 MEQ IV ASDIR (PRN) ASPIRIN 81 MG PO DAILY ATORVASTATIN CALCIUM 80 MG PO BEDTIME SODIUM CHLORIDE 10 mL 10 ML IV ASDIR HYOSCYAMINE SULFATE 0.125 MG PO DAILY PRN bisacodyL 10 MG RECTAL ASDIR PRN CYANOCOBALAMIN 500 MCG PO DAILY DEXTROSE 50%-WATER 25 ML IV ASDIR PRN clonazePAM 0.5 MG PO BEDTIME PRN GLUCAGON 1 MG IM ASDIR PRN SOD BIPHOS/POT PHOSPHATE 2 PKT PO ASDIR (PRN) DOCUSATE SODIUM 200 MG PO DAILY ONDANSETRON 4 MG PO Q6H PRN MONTELUKAST SODIUM 10 MG PO DAILY@1800 ONDANSETRON HCL/PF 4 MG IV Q6H PRN bisacodyL 10 MG RECTAL DAILY PRN MAGNESIUM 1 GM IV ASDIR PRN SODIUM BICARBONATE 8.4% 50 MEQ IV .ONCE PRN MUPIROCIN 1 APPLIC NASAL BID FERROUS SULFATE 325 MG PO DAILY LABS CBC W/AUTO DIFF (08/22/23 04:06) WHITE BLOOD CELL 8.0 RED BLOOD CELL 3.21 L HEMOGLOBIN 9.3L L HEMATOCRIT 28.5L L MEAN CELL VOLUME 88.8 MEAN CELL HGB 29.0 MEAN CELL HGB CONCENTRATION 32.6 L RED CELL DISTRIBUTION WIDTH 14.9 PLATELET COUNT 259 MEAN PLATELET VOLUME 9.4 NEUTROPHIL % 68.8 LYMPHOCYTE % 18.8 L MONOCYTE % 9.2 EOSINOPHIL % 1.5 BASOPHIL % 0.7 NEUTROPHIL # 5.53 LYMPHOCYTE # 1.51 MONOCYTE # 0.74 EOSINOPHIL # 0.12 BASOPHIL # 0.06 BASIC METABOLIC PANEL (08/22/23 04:06) SODIUM 141 POTASSIUM 3.3L L CHLORIDE 109H H CARBON DIOXIDE 21 GLUCOSE 93 BLOOD UREA NITROGEN 16 GLOMERULAR FILTRATION RATE >=60 max estimate CREATININE 0.50L L CALCIUM 8.0 L MAG (08/22/23 04:06) MAGNESIUM 1.7 Signed in PatientKeeper by Jared Wilcox MD on 08/22/23 at 11:00 at 1100 ATTENTION *EDITS and/or ADDENDA must be made in Patient Keeper for this note. * * Edits and ammendments created in [employer] are not visible * * in Patient Keeper or the legal medical record ([facility]). * [facility] #: [id number] END OF REPORT [facility] 2023-08-22 07:23:00 [facility] ([facility]) Intensive Care Progress Note REPORT #: [id number] REPORT STATUS: Signed DATE: 08/22/23 TIME: 722 PATIENT: ROCK GOMEZ UNIT #: [id number] ROOM #: [facility] BED: 1 : 36 AGE: 88 SEX: F ATTEND: Marianne Mckay MD ADM AUTHOR: Seamus Ibarra MD ATTENTION *EDITS and/or ADDENDA must be made in Patient Keeper for this note. * * Edits and ammendments created in [employer] are not visible * * in Patient Keeper or the legal medical record ([facility]). * -- ASSESSMENT AND PLAN -- GENERAL ASSESSMENT: I examined her, reviewed her EMR information and data and discussed her plan of care with supporting clinical and ancillary services. Assessment and Plan NEURO: # ICU analgesia H/o Anxiety - Limited benzo as needed, now on MAR for sleep at night. - PRN pain meds - Mobilize as well for anxiety RESP: # Acute resp insufficiency on MV - Extubated 08/18 - Continue with aggressive pulmonary toilet. - continue with nebs. as needed. - - 1 liter, hold on furhter diuretics for now. # Slight left effusion CV # S/p CABG X 3 as above H/o mv CAD Acute chronotropic incompetence LVH H/o HTN - BP is holding. - Is Pacer dependent: Continue with PPM care for now. - Hold BBlocker. - Follow up on K and Mag Nutrition ADAT RENAL: - good uop, follow Create. - Hold fluids for now. HEm/ID: # Acute blood loss anemia - HH holding. Prophylaxis - SCDs - Pharmacoprophylaxis held 07/30 high risk for bleeding Medications reviewed Critical condition post CABG still with complete heart block [id number] 08/18: discussed with family 08/19: discussed with family. 08/20: discussed with family 08/21: discussed with family. Discussed with daughter over the phone. She was concerned about her anxiety medications, and confusion overnight. We discussed modalities, and agreed to try with small dose Klonipin to help sleep and see how it goes. -- SUBJECTIVE -- HPI: Patient slept well. Awake and alert this morning. Would like to get out of bed. Block under PPM still -- OBJECTIVE -- VITALS (08/21 07:23 - 08/22 07:23): Temperature F: 97.9 (97.5 - 98.8) Temperature source: Oral Pulse Rate 80 Respiratory rate: 34 (23 - 43) Blood pressure: 107/74 (103/49 - 160/87) Blood pressure source: Arterial I/Os (08/21 07:00 - 08/22 07:00): Net 50.00 Intake 780.00 Output 730 -- DATA -- MEDICATIONS ACETAMINOPHEN 650 MG RECTAL Q4H PRN ALBUTEROL SULFATE 2.5 MG NEB RTQ6H PRN LACTULOSE 30 ML PO BID PRN polyethylene glycoL 3350 1 PKT PO DAILY POTASSIUM CHLORIDE 20 MEQ PO ASDIR PRN CALCIUM GLUC IN NACL, ISO-OSM 2 GM IV ASDIR PRN LACTULOSE 30 ML PO ASDIR PRN ACETAMINOPHEN 650 MG PO Q4H PRN LACTULOSE 30 ML PO ASDIR PRN ENOXAPARIN 30 MG SUBQ DAILY NITROGLYCERIN 0.4 MG SL Q5M PRN clopidogreL 75 MG PO DAILY POTASSIUM CHLORIDE 20 MEQ IV ASDIR (PRN) SENNOSIDES 2 TAB PO ASDIR PRN ASPIRIN 81 MG PO DAILY ATORVASTATIN CALCIUM 80 MG PO BEDTIME SODIUM CHLORIDE 10 mL 10 ML IV ASDIR HYOSCYAMINE SULFATE 0.125 MG PO DAILY PRN bisacodyL 10 MG RECTAL ASDIR PRN CYANOCOBALAMIN 500 MCG PO DAILY DEXTROSE 50%-WATER 25 ML IV ASDIR PRN clonazePAM 0.5 MG PO BEDTIME PRN GLUCAGON 1 MG IM ASDIR PRN SOD BIPHOS/POT PHOSPHATE 2 PKT PO ASDIR (PRN) DOCUSATE SODIUM 200 MG PO DAILY ACETAMINOPHEN 650 MG PO Q6H PRN ONDANSETRON 4 MG PO Q6H PRN MAGNESIUM HYDROXIDE 30 ML PO ASDIR PRN MONTELUKAST SODIUM 10 MG PO DAILY@1800 ONDANSETRON HCL/PF 4 MG IV Q6H PRN bisacodyL 10 MG RECTAL DAILY PRN MAGNESIUM 1 GM IV ASDIR PRN SODIUM BICARBONATE 8.4% 50 MEQ IV .ONCE PRN MUPIROCIN 1 APPLIC NASAL BID FERROUS SULFATE 325 MG PO DAILY LABS CBC W/AUTO DIFF (08/22/23 04:06) WHITE BLOOD CELL 8.0 RED BLOOD CELL 3.21 L HEMOGLOBIN 9.3L L HEMATOCRIT 28.5L L MEAN CELL VOLUME 88.8 MEAN CELL HGB 29.0 MEAN CELL HGB CONCENTRATION 32.6 L RED CELL DISTRIBUTION WIDTH 14.9 PLATELET COUNT 259 MEAN PLATELET VOLUME 9.4 NEUTROPHIL % 68.8 LYMPHOCYTE % 18.8 L MONOCYTE % 9.2 EOSINOPHIL % 1.5 BASOPHIL % 0.7 NEUTROPHIL # 5.53 LYMPHOCYTE # 1.51 MONOCYTE # 0.74 EOSINOPHIL # 0.12 BASOPHIL # 0.06 BASIC METABOLIC PANEL (08/22/23 04:06) SODIUM 141 POTASSIUM 3.3L L CHLORIDE 109H H CARBON DIOXIDE 21 GLUCOSE 93 BLOOD UREA NITROGEN 16 GLOMERULAR FILTRATION RATE >=60 max estimate CREATININE 0.50L L CALCIUM 8.0 L MAG (08/22/23 04:06) MAGNESIUM 1.7 Signed in PatientKeeper by Seamus Ibarra MD on 08/22/23 at 07:30 at 0730 ATTENTION *EDITS and/or ADDENDA must be made in Patient Keeper for this note. * * Edits and ammendments created in [employer] are not visible * * in Patient Keeper or the legal medical record ([facility]). * RPT #: [id number] END OF REPORT [facility] 2023-08-21 17:30:00 [facility] ([facility]) Hospitalist Progress Note REPORT #: [id number] REPORT STATUS: Signed DATE: 08/21/23 TIME: 1730 PATIENT: ROCK GOMEZ UNIT #: [id number] ROOM #: P0307 BED: 1 : 36 AGE: 88 SEX: F ATTEND: Marianne Mckay MD ADM AUTHOR: Jethro Kilgore MD ATTENTION *EDITS and/or ADDENDA must be made in Patient Keeper for this note. * * Edits and ammendments created in [employer] are not visible * * in Patient Keeper or the legal medical record ([facility]). * -- ASSESSMENT AND PLAN -- GENERAL ASSESSMENT: ASSESSMENT AND PLAN: 1. Non-ST segment elevation myocardial infarction in a patient with a known history of severe multivessel coronary artery disease including proximal 80% LAD, 90% ostial and proximal circumflex and distal RCA with stent occlusion, preserved left ventricular ejection fraction on angiogram. The patient has recently been evaluated by Dr. King Montiel of Cardiothoracic Surgery services for consideration of coronary artery bypass and grafting. We will continue aspirin, heparin, beta blockers, statins and nitroglycerin. The patient underwent 3V CABG, SCHWARTZ to LAD, saphenous vein graft to the obtuse marginal and saphenous vein graft to the posterior descending artery by Dr King Montiel 08/17/20. EBL 750 cc. Received 2 units of PRBC and 2 Cell Saver. Urine output is good. extubated POD 0 2. Pulmonary edema, related to decompensated diastolic congestive cardiac failure. Cautious use of diuretics. 3. Hypertension. Continue metoprolol and losartan. 4. Hyperlipidemia. Total cholesterol 226, HDL 90, LDL 139, triglycerides 121. Continue atorvastatin 80 mg daily. 5. Hypomagnesemia, replete. 6. Asthma. Continue montelukast. 7. Anxiety, not otherwise specified. Continue lorazepam. 8. Acute exacerbation of likely diastolic congestive heart failure. Diurese as above. 9. Osteoarthritis, avoid nonsteroidals. 10. Chronic kidney disease, stage II. 11. Hypokalemia, replete 12. Complete heart block, temporary pacer dependent. EP consulted 13. Atelectasis. ADDITIONAL COMMENTS: The patient underwent 3V CABG, SCHWARTZ to LAD, saphenous vein graft to the obtuse marginal and saphenous vein graft to the posterior descending artery by Dr King Montiel 08/17/20. extubated 08/17. EP consult for CHB -- SUBJECTIVE -- HPI: This 88-year-old female, a patient of Dr. Gianna Ambrose, has a past medical history significant for hypertension, hyperlipidemia, asthma, anxiety, chronic bronchitis, and coronary artery disease, status post angioplasty in 2011. A few weeks ago, the patient developed new onset of jaw pain and dyspnea, and noninvasive cardiac workup by Dr. Ambrose including a nuclear stress test showed an ejection fraction of 34% with severe inferolateral and posterolateral ischemia, a change from a previously normal ejection fraction of 55% to 60% in 06/2023. Subsequent coronary angiogram on 07/31/2023 showed severe multivessel coronary artery disease including 80% proximal LAD, 90% ostial and proximal circumflex, heavily calcified RCA with a distal occluded stent, and an ejection fraction during the heart catheterization to be 55%, elevated left ventricular end diastolic pressure at 33. The patient was evaluated by Dr. King Montiel of Cardiothoracic Surgery services on 08/06 and discussions were underway as regards to possible bypass surgery. Since that time, the patient has had increased anxiety about the possibility of undergoing bypass surgery and has not been able to sleep or rest well. On the morning of admission, she developed central chest pressure with radiation to the jaw and worsening shortness of breath. She presented to the [facility] in [place], [place], where troponin was elevated to 300 range and EKG was negative for ST elevation. She was also found to be in fluid overload, started on ACS protocol, heparin, Lasix and transferred to the [facility] for higher level of care. Troponin has trended up 530 and BNP 539, and chest x-ray shows interstitial pulmonary edema/infiltrates. She is being admitted to the intensive care unit for further evaluation and management. PATIENT NARRATIVE: 08/10: No acute events overnight. No significant chest pain or shortness of breath. Anxious. Troponin is trending down. On intravenous heparin, beta-blockers aspirin and statins. Plavix is on hold in case the patient goes for CABG. Cardiology and cardiothoracic surgery services following. Await further recommendations 08/11: No chest pain jaw pain or arm pain. On heparin infusion. Plans for high risk CABG week of 08/[address] King Montiel. The patient is being transitioned out to CV IMU, pending CABG. Walked 320 feet with physical therapy 08/12: Denies any chest pain or shortness of breath. No headache or dizziness. No nausea or vomiting. Has chronic constipation. On heparin infusion. Plans for high risk CABG week of 08/[address] King Montiel 08/13: No acute events overnight. No chest pain or shortness of breath. No headache or dizziness. The patient was reluctant to get her blood drawn for the PTT, explained to by the nurses. Agreeable. PTT therapeutic. Potassium low, 2.9, replaced On Lasix 40 mg IV daily. Intake and output are not accurate. Walked about 320 feet with physical therapy. 08/14: No acute events overnight. Just anxious, taking her benzodiazepines. On heparin infusion. On diuretics and electrolyte replacement. Plans for high risk CABG week of 08/[address] King Montiel. 08/15: Heparin stopped by Dr. King Montiel. Surgery most likely 08/17. In general doing okay. No chest pain or shortness of breath. No headache or dizziness. Anxious. 08/16: No acute events. No chest pain or shortness of breath. In general feels all right. Plans for high risk CABG 08/[address] King Montiel 08/17: The patient underwent 3V CABG, SCHWARTZ to LAD, saphenous vein graft to the obtuse marginal and saphenous vein graft to the posterior descending artery by Dr King Montiel 08/17/20. EBL 750 cc. Received 2 units of PRBC and 2 Cell Saver. Urine output is good. [address] extubated 08/17 08/18: Was on 2 L of oxygen, wean down to room air. Complete heart block, temporary pacer dependent. EP consulted. [address]. 08/19: Patient developed lethargic today after pain medications. On 2 L via NC Temporary pacer dependent. [address]. walked 120 feet with PT. tired appearing 08/21: Patient evaluated at bedside and reports that she would like to walk. Denies having any chest pain nausea or vomiting at this time. -REVIEW OF SYSTEMS- COMMENT: 10 point review of system was negative except as mentioned in the HPI. -- OBJECTIVE -- VITALS (08/20 17:30 - 08/21 17:30): Temperature F: 97.5 (97.4 - 97.9) Temperature source: Oral Pulse Rate 80 Respiratory rate: 23 (22 - 49) Blood pressure: 105/49 (92/42 - 162/73) Blood pressure source: Arterial I/Os (08/20 07:00 - 08/21 07:00): Net -1,099.00 Intake 625.00 Output 1,724 -EXAM- OTHER: GENERAL: Elderly female, anxious, not in any acute distress. HEENT: Head is atraumatic. NECK: Supple. No thyromegaly. No JVD. CARDIOVASCULAR: Regular rate and rhythm. CHEST: sternotomy LUNGS: Coarse BS ABDOMEN: Soft, nondistended, nontender. No organomegaly. EXTREMITIES: No edema, cyanosis, or clubbing. Pedal pulses palpable. NEUROLOGIC: No focal deficit. -- DATA -- MEDICATIONS ACETAMINOPHEN 650 MG RECTAL Q4H PRN ALBUTEROL SULFATE 2.5 MG NEB RTQ6H PRN LACTULOSE 30 ML PO BID PRN polyethylene glycoL 3350 1 PKT PO DAILY CALCIUM GLUC IN NACL, ISO-OSM 2 GM IV ASDIR PRN LACTULOSE 30 ML PO ASDIR PRN ACETAMINOPHEN 650 MG PO Q4H PRN LACTULOSE 30 ML PO ASDIR PRN ENOXAPARIN 30 MG SUBQ DAILY NITROGLYCERIN 0.4 MG SL Q5M PRN clopidogreL 75 MG PO DAILY POTASSIUM CHLORIDE 20 MEQ IV ASDIR (PRN) SENNOSIDES 2 TAB PO ASDIR PRN ASPIRIN 81 MG PO DAILY ATORVASTATIN CALCIUM 80 MG PO BEDTIME SODIUM CHLORIDE 10 mL 10 ML IV ASDIR HYOSCYAMINE SULFATE 0.125 MG PO DAILY PRN bisacodyL 10 MG RECTAL ASDIR PRN CYANOCOBALAMIN 500 MCG PO DAILY DEXTROSE 50%-WATER 25 ML IV ASDIR PRN clonazePAM 0.5 MG PO BEDTIME PRN GLUCAGON 1 MG IM ASDIR PRN SOD BIPHOS/POT PHOSPHATE 2 PKT PO ASDIR (PRN) DOCUSATE SODIUM 200 MG PO DAILY ACETAMINOPHEN 650 MG PO Q6H PRN ONDANSETRON 4 MG PO Q6H PRN MAGNESIUM HYDROXIDE 30 ML PO ASDIR PRN MONTELUKAST SODIUM 10 MG PO DAILY@1800 ONDANSETRON HCL/PF 4 MG IV Q6H PRN bisacodyL 10 MG RECTAL DAILY PRN MAGNESIUM 1 GM IV ASDIR PRN SODIUM BICARBONATE 8.4% 50 MEQ IV .ONCE PRN MUPIROCIN 1 APPLIC NASAL BID FERROUS SULFATE 325 MG PO DAILY LABS CBC W/AUTO DIFF (08/21/23 02:43) WHITE BLOOD CELL 7.7 RED BLOOD CELL 3.16 L HEMOGLOBIN 9.1L L HEMATOCRIT 27.7L L MEAN CELL VOLUME 87.7 MEAN CELL HGB 28.8 MEAN CELL HGB CONCENTRATION 32.9 L RED CELL DISTRIBUTION WIDTH 14.9 PLATELET COUNT 233 MEAN PLATELET VOLUME 10.3 NEUTROPHIL % 65.8 LYMPHOCYTE % 21.5 MONOCYTE % 10.2 H EOSINOPHIL % 1.3 BASOPHIL % 0.8 NEUTROPHIL # 5.05 LYMPHOCYTE # 1.65 MONOCYTE # 0.78 EOSINOPHIL # 0.10 BASOPHIL # 0.06 PHOS (08/21/23 02:43) PHOSPHOROUS 3.0 MAG (08/21/23 02:43) MAGNESIUM 1.7 BASIC METABOLIC PANEL (08/21/23 02:43) SODIUM 141 POTASSIUM 3.4L L CHLORIDE 105 CARBON DIOXIDE 25 GLUCOSE 107H H BLOOD UREA NITROGEN 15 GLOMERULAR FILTRATION RATE >=60 max estimate CREATININE 0.50L L CALCIUM 8.7 -- ATTESTATION -- ADDITIONAL DETAIL: I have spent greater than 45 minutes with the patient and reviewing information for patient care. > 50% time spent on counseling/coordination of care Signed in PatientKeeper by JETHRO KILGORE MD on 08/21/23 at 17:37 at 1737 ATTENTION *EDITS and/or ADDENDA must be made in Patient Keeper for this note. * * Edits and ammendments created in [employer] are not visible * * in Patient Keeper or the legal medical record (HPF). * RPT #: [id number] END OF REPORT [facility] 2023-08-21 14:32:00 [facility] ([facility]) Cardiology Progress Notes REPORT #: [id number] REPORT STATUS: Signed DATE: 08/21/23 TIME: 1432 PATIENT: ROCK GOMEZ UNIT #: [id number] ROOM #: P.0405 BED: A : 36 AGE: 88 SEX: F ATTEND: Marianne Mckay MD ADM AUTHOR: Altaf Fernandes MD CF1 ATTENTION *EDITS and/or ADDENDA must be made in Patient Keeper for this note. * * Edits and ammendments created in [employer] are not visible * * in Patient Keeper or the legal medical record ([facility]). * -- CO-SIGNATURE -- COMMENTS: I have seen and examined the patient with the medical clinic manager fellow Dr. Altaf Fernandes MD on 08/21/2023. I have reviewed all the clinical information, lab investigations, and imaging data. I agree with the following examination, findings, assessment and plan. I was present and supervised. Signed in PatientKeeper by YUE GARZA MD on 09/01/23 at 08:39 -- ASSESSMENT AND PLAN -- HOSPITAL COURSE TO DATE: - 08/11 NSTEMI, downgraded to IMU --- - 08/17 s/p [id number] (SCHWARTZ to LAD, SVG to OM1, SVG to PDA, 08/17/2023, Dr. Montiel); postop CHB - 08/18: persistent CHB, TPW in place - 08/19: persistent CHB, TPW in placed -08/21: No acute events over the night. GENERAL ASSESSMENT: 88-year-old female (patient of Dr. Gianna Ambrose) has a PMHx of coronary artery disease (s/p PCI with 3 ALEC), family history of coronary artery disease, carotid artery disease, hypertension, hyperlipidemia, h/o nicotine use, asthma, chronic bronchitis, anxiety. She has been having chest pressure radiating to her jaw and shortness of breath for the past 3 weeks. She was evaluated by her medical clinic manager, had stress test on 07/28/2023 what was abnormal, showed cardiomyopathy, an EF of 34%, severe inferolateral, posterolateral ischemia. Echocardiogram (06/2023) showed an EF 55-60%, moderate MR. She had coronary angiogram on 07/31/23 and showed three vessel coronary artery disease, torturous aorta with small abdominal aortic aneurysm. elevated LVEDP that is not amenable for PCI. She was evaluated by CV surgery, Dr. Montiel, for CABG. She presented at an outside hospital with complaint of chest pain radiating to her left jaw, diaphoresis and she was ruled in NSTEMI. She was transferred [facility] to [facility] for higher level of care. Chest x-ray showed interstitial and basilar airspace edema/infiltrates, cardiomegaly. Blood work showed troponin of 534.3, BNP 539, Mg 1.3. She was transferred to CVICU for closer observation and is being transferred out to CVIMU now. She underwent CABG x3V (SCHWARTZ-LAD, rSVG-OM1, rSVG-PDA) on 08/17/[address] Montiel. She was transferred to CVICU for post-op management and extubated POD. A/P ACS/NSTEMI (non-ST elevated myocardial infarction), S/p CABG x 3V on 08/17/23. Temporary pacer dependent, pacing at 80, beta rashi on hold - On DAPT with aspirin and clopidogrel - On atorvastatin 80mg daily - On PT/OT/IS -- SUBJECTIVE -- CHIEF COMPLAINT: No new c/o HPI: Reviewed PATIENT NARRATIVE: No new events -- OBJECTIVE -- VITALS (08/20 14:32 - 08/21 14:32): Temperature F: 97.5 (97.4 - 97.9) Temperature source: Oral Pulse Rate 80 Respiratory rate: 23 (22 - 49) Blood pressure: 105/49 (92/42 - 162/73) Blood pressure source: Arterial I/Os (08/20 07:00 - 08/21 07:00): Net -1,099.00 Intake 625.00 Output 1,724 -EXAM- GENERAL: Well developed, well nourished, in no apparent distress. HEAD: Normocephalic, atraumatic. EYES: PERRL, EOM intact, conjunctiva and sclera clear, without nystagmus, lids normal. NOSE: No deformity, no discharge, no inflammation, no lesions. MOUTH: Oropharynx without deformities or lesions, normal mucosa. NECK: Supple, no JVD, trachea midline. R CVC noted CHEST: Surgical wound noted. LUNGS: Clear bilaterally with normal respiratory effort. No wheezes. HEART: Paced rhythm at 80, normal S1 and 2. ABDOMEN: Soft, non-tender, not distended, no guarding. MUSCULOSKELETAL: No deformity, joint ROM grossly normal. EXTREMITIES: No clubbing, no cyanosis, no edema. NEUROLOGICAL: Aox3. No focal deficits. PULSES: Pulses normal in all extremities. SKIN: Intact without significant lesions, or rashes. -- DATA -- MEDICATIONS ACETAMINOPHEN 650 MG RECTAL Q4H PRN ALBUTEROL SULFATE 2.5 MG NEB RTQ6H PRN LACTULOSE 30 ML PO BID PRN polyethylene glycoL 3350 1 PKT PO DAILY CALCIUM GLUC IN NACL, ISO-OSM 2 GM IV ASDIR PRN LACTULOSE 30 ML PO ASDIR PRN ACETAMINOPHEN 650 MG PO Q4H PRN LACTULOSE 30 ML PO ASDIR PRN ENOXAPARIN 30 MG SUBQ DAILY NITROGLYCERIN 0.4 MG SL Q5M PRN clopidogreL 75 MG PO DAILY POTASSIUM CHLORIDE 20 MEQ IV ASDIR (PRN) SENNOSIDES 2 TAB PO ASDIR PRN ASPIRIN 81 MG PO DAILY ATORVASTATIN CALCIUM 80 MG PO BEDTIME SODIUM CHLORIDE 10 mL 10 ML IV ASDIR HYOSCYAMINE SULFATE 0.125 MG PO DAILY PRN bisacodyL 10 MG RECTAL ASDIR PRN CYANOCOBALAMIN 500 MCG PO DAILY DEXTROSE 50%-WATER 25 ML IV ASDIR PRN GLUCAGON 1 MG IM ASDIR PRN SOD BIPHOS/POT PHOSPHATE 2 PKT PO ASDIR (PRN) DOCUSATE SODIUM 200 MG PO DAILY ACETAMINOPHEN 650 MG PO Q6H PRN ONDANSETRON 4 MG PO Q6H PRN MAGNESIUM HYDROXIDE 30 ML PO ASDIR PRN MONTELUKAST SODIUM 10 MG PO DAILY@1800 ONDANSETRON HCL/PF 4 MG IV Q6H PRN bisacodyL 10 MG RECTAL DAILY PRN MAGNESIUM 1 GM IV ASDIR PRN SODIUM BICARBONATE 8.4% 50 MEQ IV .ONCE PRN MUPIROCIN 1 APPLIC NASAL BID FERROUS SULFATE 325 MG PO DAILY LABS CBC W/AUTO DIFF (08/21/23 02:43) WHITE BLOOD CELL 7.7 RED BLOOD CELL 3.16 L HEMOGLOBIN 9.1L L HEMATOCRIT 27.7L L MEAN CELL VOLUME 87.7 MEAN CELL HGB 28.8 MEAN CELL HGB CONCENTRATION 32.9 L RED CELL DISTRIBUTION WIDTH 14.9 PLATELET COUNT 233 MEAN PLATELET VOLUME 10.3 NEUTROPHIL % 65.8 LYMPHOCYTE % 21.5 MONOCYTE % 10.2 H EOSINOPHIL % 1.3 BASOPHIL % 0.8 NEUTROPHIL # 5.05 LYMPHOCYTE # 1.65 MONOCYTE # 0.78 EOSINOPHIL # 0.10 BASOPHIL # 0.06 PHOS (08/21/23 02:43) PHOSPHOROUS 3.0 MAG (08/21/23 02:43) MAGNESIUM 1.7 BASIC METABOLIC PANEL (08/21/23 02:43) SODIUM 141 POTASSIUM 3.4L L CHLORIDE 105 CARBON DIOXIDE 25 GLUCOSE 107H H BLOOD UREA NITROGEN 15 GLOMERULAR FILTRATION RATE >=60 max estimate CREATININE 0.50L L CALCIUM 8.7 Signed in PatientKeeper by Altaf Fernandes MD CF1 on 08/21/23 at 14:38 Cosigned by YUE GARZA MD on 09/01/23 at 08:39 at 0839 at 0839 ATTENTION *EDITS and/or ADDENDA must be made in Patient Keeper for this note. * * Edits and ammendments created in [facility] are not visible * * in Patient Keeper or the legal medical record (HPF). * RPT #: [id number] END OF REPORT [facility] 2023-08-21 11:29:00 [facility] ([facility]) Intensive Care Progress Note REPORT #: [id number] REPORT STATUS: Signed DATE: 08/21/23 TIME: 1128 PATIENT: ROCK GOMEZ UNIT #: [id number] ROOM #: [id number] BED: 1 : 36 AGE: 88 SEX: F ATTEND: Marianne Mckay MD ADM AUTHOR: Seamus Ibarra MD ATTENTION *EDITS and/or ADDENDA must be made in Patient Keeper for this note. * * Edits and ammendments created in [employer] are not visible * * in Patient Keeper or the legal medical record (HPF). * -- ASSESSMENT AND PLAN -- GENERAL ASSESSMENT: I examined her, reviewed her EMR information and data and discussed her plan of care with supporting clinical and ancillary services. Assessment and Plan NEURO: # ICU analgesia H/o Anxiety - Limited benzo as needed. - PRN pain meds - Mobilize as well for anxiety RESP: # Acute resp insufficiency on MV - Extubated this 08/18 - Continue with aggressive pulmonary toilet. - continue with nebs. as needed. - - 1 liter, hold on furhter diuretics for now. # Slight left effusion CV # S/p CABG X 3 as above H/o mv CAD Acute chronotropic incompetence LVH H/o HTN - BP is holding. - Is Pacer dependent: Continue with PPM care for now. - Hold BBlocker. - Follow up on K and Mag Nutrition ADAT RENAL: - good uop, follow Create. - Hold fluids for now. HEm/ID: # Acute blood loss anemia - Appropriate response to PRBCs - Serially reassessing Prophylaxis - SCDs - Pharmacoprophylaxis held 07/30 high risk for bleeding Medications reviewed Critical condition post CABG [id number] 08/18: discussed with family 08/19: discussed with family. 08/20: discussed with family 08/21: discussed with family. -- SUBJECTIVE -- HPI: Patient was slightly confused overnight, slight haldol. She is improved this morning after good sleep. Sitting in chair -- OBJECTIVE -- VITALS (08/20 11:29 - 08/21 11:29): Temperature F: 97.9 (97.4 - 97.9) Temperature source: Oral Pulse Rate 80 Respiratory rate: 27 (22 - 49) Blood pressure: 139/59 (92/42 - 162/136) Blood pressure source: Arterial I/Os (08/20 07:00 - 08/21 07:00): Net -1,099.00 Intake 625.00 Output 1,724 -- DATA -- MEDICATIONS ACETAMINOPHEN 650 MG RECTAL Q4H PRN ALBUTEROL SULFATE 2.5 MG NEB RTQ6H PRN LACTULOSE 30 ML PO BID PRN polyethylene glycoL 3350 1 PKT PO DAILY CALCIUM GLUC IN NACL, ISO-OSM 2 GM IV ASDIR PRN LACTULOSE 30 ML PO ASDIR PRN ACETAMINOPHEN 650 MG PO Q4H PRN LACTULOSE 30 ML PO ASDIR PRN ENOXAPARIN 30 MG SUBQ DAILY NITROGLYCERIN 0.4 MG SL Q5M PRN clopidogreL 75 MG PO DAILY POTASSIUM CHLORIDE 20 MEQ IV ASDIR (PRN) SENNOSIDES 2 TAB PO ASDIR PRN ASPIRIN 81 MG PO DAILY ATORVASTATIN CALCIUM 80 MG PO BEDTIME SODIUM CHLORIDE 10 mL 10 ML IV ASDIR HYOSCYAMINE SULFATE 0.125 MG PO DAILY PRN bisacodyL 10 MG RECTAL ASDIR PRN CYANOCOBALAMIN 500 MCG PO DAILY DEXTROSE 50%-WATER 25 ML IV ASDIR PRN GLUCAGON 1 MG IM ASDIR PRN SOD BIPHOS/POT PHOSPHATE 2 PKT PO ASDIR (PRN) DOCUSATE SODIUM 200 MG PO DAILY ACETAMINOPHEN 650 MG PO Q6H PRN ONDANSETRON 4 MG PO Q6H PRN MAGNESIUM HYDROXIDE 30 ML PO ASDIR PRN MONTELUKAST SODIUM 10 MG PO DAILY@1800 ONDANSETRON HCL/PF 4 MG IV Q6H PRN bisacodyL 10 MG RECTAL DAILY PRN MAGNESIUM 1 GM IV ASDIR PRN SODIUM BICARBONATE 8.4% 50 MEQ IV .ONCE PRN MUPIROCIN 1 APPLIC NASAL BID FERROUS SULFATE 325 MG PO DAILY LABS CBC W/AUTO DIFF (08/21/23 02:43) WHITE BLOOD CELL 7.7 RED BLOOD CELL 3.16 L HEMOGLOBIN 9.1L L HEMATOCRIT 27.7L L MEAN CELL VOLUME 87.7 MEAN CELL HGB 28.8 MEAN CELL HGB CONCENTRATION 32.9 L RED CELL DISTRIBUTION WIDTH 14.9 PLATELET COUNT 233 MEAN PLATELET VOLUME 10.3 NEUTROPHIL % 65.8 LYMPHOCYTE % 21.5 MONOCYTE % 10.2 H EOSINOPHIL % 1.3 BASOPHIL % 0.8 NEUTROPHIL # 5.05 LYMPHOCYTE # 1.65 MONOCYTE # 0.78 EOSINOPHIL # 0.10 BASOPHIL # 0.06 PHOS (08/21/23 02:43) PHOSPHOROUS 3.0 MAG (08/21/23 02:43) MAGNESIUM 1.7 BASIC METABOLIC PANEL (08/21/23 02:43) SODIUM 141 POTASSIUM 3.4L L CHLORIDE 105 CARBON DIOXIDE 25 GLUCOSE 107H H BLOOD UREA NITROGEN 15 GLOMERULAR FILTRATION RATE >=60 max estimate CREATININE 0.50L L CALCIUM 8.7 PHOS (08/20/23 11:52) PHOSPHOROUS 1.6 L MAG (08/20/23 11:52) MAGNESIUM 1.6 BASIC METABOLIC PANEL (08/20/23 11:52) SODIUM 142 POTASSIUM 3.7 CHLORIDE 109H H CARBON DIOXIDE 22 GLUCOSE 121H H BLOOD UREA NITROGEN 15 GLOMERULAR FILTRATION RATE >=60 max estimate CREATININE 0.50L L CALCIUM 8.9 VITALS Temperature F: 08/21/23 10:40 08/21/23 10:18 08/21/23 10:00 08/21/23 09:41 08/21/23 09:30 08/21/23 09:00 08/21/23 08:30 08/21/23 08:25 08/21/23 08:00 97.9 08/21/23 07:30 Temperature C: 08/21/23 10:40 08/21/23 10:18 08/21/23 10:00 08/21/23 09:41 08/21/23 09:30 08/21/23 09:00 08/21/23 08:30 08/21/23 08:25 08/21/23 08:00 08/21/23 07:30 Temperature source: 08/21/23 10:40 08/21/23 10:18 08/21/23 10:00 08/21/23 09:41 08/21/23 09:30 08/21/23 09:00 08/21/23 08:30 08/21/23 08:25 08/21/23 08:00 Oral 08/21/23 07:30 Pulse Rate 08/21/23 10:40 08/21/23 10:18 80 08/21/23 10:00 80 08/21/23 09:41 08/21/23 09:30 80 08/21/23 09:00 80 08/21/23 08:30 80 08/21/23 08:25 80 08/21/23 08:00 80 08/21/23 07:30 80 Pulse Source: 08/21/23 10:40 08/21/23 10:18 Monitor 08/21/23 10:00 Monitor 08/21/23 09:41 08/21/23 09:30 Monitor 08/21/23 09:00 Monitor 08/21/23 08:30 Monitor 08/21/23 08:25 Monitor 08/21/23 08:00 Monitor 08/21/23 07:30 Monitor Respiratory rate: 08/21/23 10:40 08/21/23 10:18 27 08/21/23 10:00 40 08/21/23 09:41 08/21/23 09:30 41 08/21/23 09:00 24 08/21/23 08:30 34 08/21/23 08:25 38 08/21/23 08:00 30 08/21/23 07:30 27 Respiratory source: 08/21/23 10:40 08/21/23 10:18 Monitor 08/21/23 10:00 Monitor 08/21/23 09:41 08/21/23 09:30 Monitor 08/21/23 09:00 Monitor 08/21/23 08:30 Monitor 08/21/23 08:25 Monitor 08/21/23 08:00 Monitor 08/21/23 07:30 Monitor Blood pressure: 08/21/23 10:40 08/21/23 10:18 139 / 59 08/21/23 10:00 155 / 69 08/21/23 09:41 08/21/23 09:30 158 / 67 08/21/23 09:00 148 / 69 08/21/23 08:30 156 / 73 08/21/23 08:25 151 / 70 08/21/23 08:00 150 / 67 08/21/23 07:30 155 / 68 AR1-R: 08/21/23 10:40 08/21/23 10:18 79 08/21/23 10:00 80 08/21/23 09:41 08/21/23 09:30 80 08/21/23 09:00 79 08/21/23 08:30 79 08/21/23 08:25 80 08/21/23 08:00 79 08/21/23 07:30 79 Blood pressure source: 08/21/23 10:40 08/21/23 10:18 Arterial 08/21/23 10:00 Arterial 08/21/23 09:41 08/21/23 09:30 Arterial 08/21/23 09:00 Arterial 08/21/23 08:30 Arterial 08/21/23 08:25 Arterial 08/21/23 08:00 Arterial 08/21/23 07:30 Arterial SPO2 %: 08/21/23 10:40 98 08/21/23 10:18 99 08/21/23 10:00 97 08/21/23 09:41 08/21/23 09:30 98 08/21/23 09:00 98 08/21/23 08:30 98 08/21/23 08:25 98 08/21/23 08:00 99 08/21/23 07:30 98 Oxygen detail: 08/21/23 10:40 08/21/23 10:18 08/21/23 10:00 08/21/23 09:41 08/21/23 09:30 08/21/23 09:00 08/21/23 08:30 08/21/23 08:25 08/21/23 08:00 08/21/23 07:30 O2 Liters per minute: 08/21/23 10:40 2 08/21/23 10:18 08/21/23 10:00 08/21/23 09:41 08/21/23 09:30 08/21/23 09:00 08/21/23 08:30 08/21/23 08:25 08/21/23 08:00 08/21/23 07:30 Oxygen delivery devices: 08/21/23 10:40 Nasal cannula 08/21/23 10:18 08/21/23 10:00 08/21/23 09:41 08/21/23 09:30 08/21/23 09:00 08/21/23 08:30 08/21/23 08:25 08/21/23 08:00 08/21/23 07:30 FiO2%: 08/21/23 10:40 08/21/23 10:18 08/21/23 10:00 08/21/23 09:41 08/21/23 09:30 08/21/23 09:00 08/21/23 08:30 08/21/23 08:25 08/21/23 08:00 08/21/23 07:30 Pulse Oximetry Heart Rate: 08/21/23 10:40 08/21/23 10:18 80 08/21/23 10:00 80 08/21/23 09:41 08/21/23 09:30 80 08/21/23 09:00 81 08/21/23 08:30 80 08/21/23 08:25 80 08/21/23 08:00 80 08/21/23 07:30 81 Pain scale utilized: 08/21/23 10:40 08/21/23 10:18 08/21/23 10:00 Verbal numeric 08/21/23 09:41 Verbal numeric 08/21/23 09:30 08/21/23 09:00 08/21/23 08:30 08/21/23 08:25 08/21/23 08:00 Verbal numeric 08/21/23 07:30 Aldana-Manrique pain scale: 08/21/23 10:40 08/21/23 10:18 08/21/23 10:00 08/21/23 09:41 08/21/23 09:30 08/21/23 09:00 08/21/23 08:30 08/21/23 08:25 08/21/23 08:00 08/21/23 07:30 Pain location: 08/21/23 10:40 08/21/23 10:18 08/21/23 10:00 Sternum 08/21/23 09:41 08/21/23 09:30 08/21/23 09:00 08/21/23 08:30 08/21/23 08:25 08/21/23 08:00 08/21/23 07:30 Pain intensity: 08/21/23 10:40 08/21/23 10:18 08/21/23 10:00 2 08/21/23 09:41 3 08/21/23 09:30 08/21/23 09:00 08/21/23 08:30 08/21/23 08:25 08/21/23 08:00 0 08/21/23 07:30 Numeric pain scale: 08/21/23 10:40 08/21/23 10:18 08/21/23 10:00 Mild pain-2 08/21/23 09:41 Mild pain-3 08/21/23 09:30 08/21/23 09:00 08/21/23 08:30 08/21/23 08:25 08/21/23 08:00 No pain-0 08/21/23 07:30 Pain description: 08/21/23 10:40 08/21/23 10:18 08/21/23 10:00 Aching 08/21/23 09:41 08/21/23 09:30 08/21/23 09:00 08/21/23 08:30 08/21/23 08:25 08/21/23 08:00 08/21/23 07:30 LOC: 08/21/23 10:40 08/21/23 10:18 08/21/23 10:00 08/21/23 09:41 08/21/23 09:30 08/21/23 09:00 08/21/23 08:30 08/21/23 08:25 08/21/23 08:00 08/21/23 07:30 Height in Centimeters 08/21/23 10:40 08/21/23 10:18 08/21/23 10:00 08/21/23 09:41 08/21/23 09:30 08/21/23 09:00 08/21/23 08:30 08/21/23 08:25 08/21/23 08:00 08/21/23 07:30 Height ft: 08/21/23 10:40 08/21/23 10:18 08/21/23 10:00 08/21/23 09:41 08/21/23 09:30 08/21/23 09:00 08/21/23 08:30 08/21/23 08:25 08/21/23 08:00 08/21/23 07:30 Height in: 08/21/23 10:40 08/21/23 10:18 08/21/23 10:00 08/21/23 09:41 08/21/23 09:30 08/21/23 09:00 08/21/23 08:30 08/21/23 08:25 08/21/23 08:00 08/21/23 07:30 Height source: 08/21/23 10:40 08/21/23 10:18 08/21/23 10:00 08/21/23 09:41 08/21/23 09:30 08/21/23 09:00 08/21/23 08:30 08/21/23 08:25 08/21/23 08:00 08/21/23 07:30 Weight in Kilograms 08/21/23 10:40 08/21/23 10:18 08/21/23 10:00 08/21/23 09:41 08/21/23 09:30 08/21/23 09:00 08/21/23 08:30 08/21/23 08:25 08/21/23 08:00 08/21/23 07:30 Weight source: 08/21/23 10:40 08/21/23 10:18 08/21/23 10:00 08/21/23 09:41 08/21/23 09:30 08/21/23 09:00 08/21/23 08:30 08/21/23 08:25 08/21/23 08:00 08/21/23 07:30 BSA calculated - sq m: 08/21/23 10:40 08/21/23 10:18 08/21/23 10:00 08/21/23 09:41 08/21/23 09:30 08/21/23 09:00 08/21/23 08:30 08/21/23 08:25 08/21/23 08:00 08/21/23 07:30 BMI calculated: 08/21/23 10:40 08/21/23 10:18 08/21/23 10:00 08/21/23 09:41 08/21/23 09:30 08/21/23 09:00 08/21/23 08:30 08/21/23 08:25 08/21/23 08:00 26.8 08/21/23 07:30 IBW calculated: 08/21/23 10:40 08/21/23 10:18 08/21/23 10:00 08/21/23 09:41 08/21/23 09:30 08/21/23 09:00 08/21/23 08:30 08/21/23 08:25 08/21/23 08:00 08/21/23 07:30 AdjBW calculated: 08/21/23 10:40 08/21/23 10:18 08/21/23 10:00 08/21/23 09:41 08/21/23 09:30 08/21/23 09:00 08/21/23 08:30 08/21/23 08:25 08/21/23 08:00 08/21/23 07:30 PAP: 08/21/23 10:40 08/21/23 10:18 08/21/23 10:00 08/21/23 09:41 08/21/23 09:30 08/21/23 09:00 08/21/23 08:30 08/21/23 08:25 08/21/23 08:00 08/21/23 07:30 PAP (mean): 08/21/23 10:40 08/21/23 10:18 08/21/23 10:00 08/21/23 09:41 08/21/23 09:30 08/21/23 09:00 08/21/23 08:30 08/21/23 08:25 08/21/23 08:00 08/21/23 07:30 CVP: 08/21/23 10:40 08/21/23 10:18 203 08/21/23 10:00 203 08/21/23 09:41 08/21/23 09:30 203 08/21/23 09:00 204 08/21/23 08:30 206 08/21/23 08:25 206 08/21/23 08:00 208 08/21/23 07:30 210 SVO2%: 08/21/23 10:40 08/21/23 10:18 08/21/23 10:00 08/21/23 09:41 08/21/23 09:30 08/21/23 09:00 08/21/23 08:30 08/21/23 08:25 08/21/23 08:00 08/21/23 07:30 Mean arterial pressure: 08/21/23 10:40 08/21/23 10:18 87 08/21/23 10:00 100 08/21/23 09:41 08/21/23 09:30 100 08/21/23 09:00 98 08/21/23 08:30 104 08/21/23 08:25 99 08/21/23 08:00 97 08/21/23 07:30 100 Left upper lobe: 08/21/23 10:40 08/21/23 10:18 08/21/23 10:00 08/21/23 09:41 08/21/23 09:30 08/21/23 09:00 08/21/23 08:30 08/21/23 08:25 08/21/23 08:00 08/21/23 07:30 Left lower lobe: 08/21/23 10:40 08/21/23 10:18 08/21/23 10:00 08/21/23 09:41 08/21/23 09:30 08/21/23 09:00 08/21/23 08:30 08/21/23 08:25 08/21/23 08:00 08/21/23 07:30 Right upper lobe: 08/21/23 10:40 08/21/23 10:18 08/21/23 10:00 08/21/23 09:41 08/21/23 09:30 08/21/23 09:00 08/21/23 08:30 08/21/23 08:25 08/21/23 08:00 08/21/23 07:30 Right middle lobe: 08/21/23 10:40 08/21/23 10:18 08/21/23 10:00 08/21/23 09:41 08/21/23 09:30 08/21/23 09:00 08/21/23 08:30 08/21/23 08:25 08/21/23 08:00 08/21/23 07:30 Right lower lobe: 08/21/23 10:40 08/21/23 10:18 08/21/23 10:00 08/21/23 09:41 08/21/23 09:30 08/21/23 09:00 08/21/23 08:30 08/21/23 08:25 08/21/23 08:00 08/21/23 07:30 Color and description of sputum: 08/21/23 10:40 08/21/23 10:18 08/21/23 10:00 08/21/23 09:41 08/21/23 09:30 08/21/23 09:00 08/21/23 08:30 08/21/23 08:25 08/21/23 08:00 08/21/23 07:30 Consistency of sputum: 08/21/23 10:40 08/21/23 10:18 08/21/23 10:00 08/21/23 09:41 08/21/23 09:30 08/21/23 09:00 08/21/23 08:30 08/21/23 08:25 08/21/23 08:00 08/21/23 07:30 Skin integrity surrounding airway device: 08/21/23 10:40 08/21/23 10:18 08/21/23 10:00 08/21/23 09:41 08/21/23 09:30 08/21/23 09:00 08/21/23 08:30 08/21/23 08:25 08/21/23 08:00 08/21/23 07:30 Skin intact: 08/21/23 10:40 08/21/23 10:18 08/21/23 10:00 08/21/23 09:41 08/21/23 09:30 08/21/23 09:00 08/21/23 08:30 08/21/23 08:25 08/21/23 08:00 08/21/23 07:30 Airway tube size: 08/21/23 10:40 08/21/23 10:18 08/21/23 10:00 08/21/23 09:41 08/21/23 09:30 08/21/23 09:00 08/21/23 08:30 08/21/23 08:25 08/21/23 08:00 08/21/23 07:30 Marking point cm: 08/21/23 10:40 08/21/23 10:18 08/21/23 10:00 08/21/23 09:41 08/21/23 09:30 08/21/23 09:00 08/21/23 08:30 08/21/23 08:25 08/21/23 08:00 08/21/23 07:30 Point of reference: 08/21/23 10:40 08/21/23 10:18 08/21/23 10:00 08/21/23 09:41 08/21/23 09:30 08/21/23 09:00 08/21/23 08:30 08/21/23 08:25 08/21/23 08:00 08/21/23 07:30 Ventilator mode: 08/21/23 10:40 08/21/23 10:18 08/21/23 10:00 08/21/23 09:41 08/21/23 09:30 08/21/23 09:00 08/21/23 08:30 08/21/23 08:25 08/21/23 08:00 08/21/23 07:30 Set rate (bpm): 08/21/23 10:40 08/21/23 10:18 08/21/23 10:00 08/21/23 09:41 08/21/23 09:30 08/21/23 09:00 08/21/23 08:30 08/21/23 08:25 08/21/23 08:00 08/21/23 07:30 Peak inspiratory pressure (cmH2O): 08/21/23 10:40 08/21/23 10:18 08/21/23 10:00 08/21/23 09:41 08/21/23 09:30 08/21/23 09:00 08/21/23 08:30 08/21/23 08:25 08/21/23 08:00 08/21/23 07:30 Exhaled tidal volume (mL): 08/21/23 10:40 08/21/23 10:18 08/21/23 10:00 08/21/23 09:41 08/21/23 09:30 08/21/23 09:00 08/21/23 08:30 08/21/23 08:25 08/21/23 08:00 08/21/23 07:30 Set FiO2%: 08/21/23 10:40 08/21/23 10:18 08/21/23 10:00 08/21/23 09:41 08/21/23 09:30 08/21/23 09:00 08/21/23 08:30 08/21/23 08:25 08/21/23 08:00 08/21/23 07:30 Set PEEP (cmH2O): 08/21/23 10:40 08/21/23 10:18 08/21/23 10:00 08/21/23 09:41 08/21/23 09:30 08/21/23 09:00 08/21/23 08:30 08/21/23 08:25 08/21/23 08:00 08/21/23 07:30 Total PEEP (cmH2O): 08/21/23 10:40 08/21/23 10:18 08/21/23 10:00 08/21/23 09:41 08/21/23 09:30 08/21/23 09:00 08/21/23 08:30 08/21/23 08:25 08/21/23 08:00 08/21/23 07:30 Insertion/applied date: 08/21/23 10:40 08/21/23 10:18 08/21/23 10:00 08/21/23 09:41 08/21/23 09:30 08/21/23 09:00 08/21/23 08:30 08/21/23 08:25 08/21/23 08:00 08/17/2023 08/21/23 07:30 Insertion/applied time: 08/21/23 10:40 08/21/23 10:18 08/21/23 10:00 08/21/23 09:41 08/21/23 09:30 08/21/23 09:00 08/21/23 08:30 08/21/23 08:25 08/21/23 08:00 [id number] 08/21/23 07:30 Urinary catheter type: 08/21/23 10:40 08/21/23 10:18 08/21/23 10:00 08/21/23 09:41 08/21/23 09:30 08/21/23 09:00 08/21/23 08:30 08/21/23 08:25 08/21/23 08:00 Temporary/indwelling 08/21/23 07:30 Signed in PatientKeeper by Seamus Ibarra MD on 08/21/23 at 11:38 at 1138 ATTENTION *EDITS and/or ADDENDA must be made in Patient Keeper for this note. * * Edits and ammendments created in [employer] are not visible * * in Patient Keeper or the legal medical record ([facility]). * RPT #: [id number] END OF REPORT [facility] 2023-08-20 14:55:00 [facility] ([facility]) Intensive Care Progress Note REPORT #: [id number] REPORT STATUS: Signed DATE: 08/20/23 TIME: 1454 PATIENT: ROCK GOMEZ UNIT #: [id number] ROOM #: [id number] BED: 1 : 36 AGE: 88 SEX: F ATTEND: Marianne Mckay MD [facility] AUTHOR: Seamus Ibarra MD ATTENTION *EDITS and/or ADDENDA must be made in Patient Keeper for this note. * * Edits and ammendments created in [employer] are not visible * * in Patient Keeper or the legal medical record ([facility]). * -- ASSESSMENT AND PLAN -- GENERAL ASSESSMENT: I examined her, reviewed her EMR information and data and discussed her plan of care with supporting clinical and ancillary services. Assessment and Plan NEURO: # ICU Sedation, analgesia H/o Anxiety - Limited benzo as needed. - PRN pain meds - Mobilize as well for anxiety RESP: # Acute resp insufficiency on MV - Extubated this 08/18 - Continue with aggressive pulmonary toilet. - continue with nebs. as needed. - Tolerated lasix this morning, will repeat dose in the afternoon. CV # S/p CABG X 3 as above H/o mv CAD Acute chronotropic incompetence LVH H/o HTN - BP is holding. - Is Pacer dependent: Continue with PPM care for now. - Hold BBlocker. - Follow up on K and Mag Nutrition ADAT RENAL: - good uop, follow Create. - Hold fluids for now. HEm/ID: # Acute blood loss anemia - Appropriate response to PRBCs - Serially reassessing Prophylaxis - SCDs - Pharmacoprophylaxis held 07/30 high risk for bleeding Medications reviewed Critical condition post CABG CCT 40 08/18: discussed with family 08/19: discussed with family. 08/20: discussed with family -- SUBJECTIVE -- HPI: Patient is oob, slight SOB. somewhat anxious. Tolerating IS -- OBJECTIVE -- VITALS (08/19 14:55 - 08/20 14:55): Temperature F: 97.1 (97.1 - 97.7) Temperature source: Oral Pulse Rate 80 (79 - 80) Respiratory rate: 27 (20 - 39) Blood pressure: 131/57 (93/43 - 179/90) Blood pressure source: Arterial I/Os (08/19 07:00 - 08/20 07:00): Net -435.00 Intake 400.00 Output 835 -- DATA -- MEDICATIONS ACETAMINOPHEN 650 MG RECTAL Q4H PRN ALBUTEROL SULFATE 2.5 MG NEB RTQ6H PRN LACTULOSE 30 ML PO BID PRN polyethylene glycoL 3350 1 PKT PO DAILY CALCIUM GLUC IN NACL, ISO-OSM 2 GM IV ASDIR PRN LACTULOSE 30 ML PO ASDIR PRN ACETAMINOPHEN 650 MG PO Q4H PRN LACTULOSE 30 ML PO ASDIR PRN ENOXAPARIN 30 MG SUBQ DAILY NITROGLYCERIN 0.4 MG SL Q5M PRN clopidogreL 75 MG PO DAILY POTASSIUM CHLORIDE 20 MEQ IV ASDIR (PRN) SENNOSIDES 2 TAB PO ASDIR PRN ASPIRIN 81 MG PO DAILY ATORVASTATIN CALCIUM 80 MG PO BEDTIME SODIUM CHLORIDE 10 mL 10 ML IV ASDIR HYOSCYAMINE SULFATE 0.125 MG PO DAILY PRN bisacodyL 10 MG RECTAL ASDIR PRN CYANOCOBALAMIN 500 MCG PO DAILY DEXTROSE 50%-WATER 25 ML IV ASDIR PRN GLUCAGON 1 MG IM ASDIR PRN SOD BIPHOS/POT PHOSPHATE 2 PKT PO ASDIR (PRN) DOCUSATE SODIUM 200 MG PO DAILY ACETAMINOPHEN 650 MG PO Q6H PRN ONDANSETRON 4 MG PO Q6H PRN MAGNESIUM HYDROXIDE 30 ML PO ASDIR PRN MONTELUKAST SODIUM 10 MG PO DAILY@1800 ONDANSETRON HCL/PF 4 MG IV Q6H PRN bisacodyL 10 MG RECTAL DAILY PRN MAGNESIUM 1 GM IV ASDIR PRN SODIUM BICARBONATE 8.4% 50 MEQ IV .ONCE PRN MUPIROCIN 1 APPLIC NASAL BID FERROUS SULFATE 325 MG PO DAILY LABS PHOS (08/20/23 11:52) PHOSPHOROUS 1.6 L MAG (08/20/23 11:52) MAGNESIUM 1.6 BASIC METABOLIC PANEL (08/20/23 11:52) SODIUM 142 POTASSIUM 3.7 CHLORIDE 109H H CARBON DIOXIDE 22 GLUCOSE 121H H BLOOD UREA NITROGEN 15 GLOMERULAR FILTRATION RATE >=60 max estimate CREATININE 0.50L L CALCIUM 8.9 BLOOD GAS W/ELECTROLYTES (08/20/23 08:09) ARTERIAL BLOOD GAS PH 7.49 H ARTERIAL BLOOD GAS PCO2 36.8 ARTERIAL BLOOD GAS PO2 149.2 H BICARBONATE TOTAL HCO3 27.7 H BASE EXCESS 4.4 H ABG O2 SATURATION 99.1 ARTERIAL FIO2 44.0 ABG VENT MODE MIXED VENOUS ALLENS TEST NOT APPLICABLE SODIUM (POC) 128 L POTASSIUM (POC) 4.30 CHLORIDE (ARTERIAL) 91 D L IONIZED CALCIUM 1.13 POC LACTIC ACID 1.58 TOTAL HGB 14.0 D CARBOXYHEMOGLOBIN 1.2 METHEMOGLOBIN <0.8 HHb 0.9 TCO2 ARTERIAL 28.8 BLOOD GAS W/ELECTROLYTES (08/20/23 08:01) ARTERIAL BLOOD GAS PH 7.47 H ARTERIAL BLOOD GAS PCO2 32.9 L ARTERIAL BLOOD GAS PO2 101.1 H BICARBONATE TOTAL HCO3 23.2 BASE EXCESS 0.0 ABG O2 SATURATION 97.9 ARTERIAL FIO2 40.0 ABG VENT MODE NASAL CANNULA ALLENS TEST NOT APPLICABLE SODIUM (POC) 139 POTASSIUM (POC) 4.71 CHLORIDE (ARTERIAL) 105 GLUCOSE 110 H IONIZED CALCIUM 1.23 POC LACTIC ACID 1.59 TOTAL HGB 11.1 L OXYHEMOGLOBIN 97.5 CARBOXYHEMOGLOBIN 0.1 METHEMOGLOBIN <0.8 HHb 2.1 TCO2 ARTERIAL 24.3 BASIC METABOLIC PANEL (08/20/23 03:26) SODIUM 141 POTASSIUM 3.4L L CHLORIDE 108H H CARBON DIOXIDE 27 GLUCOSE 112H H BLOOD UREA NITROGEN 16 GLOMERULAR FILTRATION RATE >=60 max estimate CREATININE 0.50L L CALCIUM 8.7 CBC W/AUTO DIFF (08/20/23 03:26) WHITE BLOOD CELL 7.8 RED BLOOD CELL 3.04 L HEMOGLOBIN 8.8L L HEMATOCRIT 27.1L L MEAN CELL VOLUME 89.1 MEAN CELL HGB 28.9 MEAN CELL HGB CONCENTRATION 32.5 L RED CELL DISTRIBUTION WIDTH 15.4 PLATELET COUNT 173 MEAN PLATELET VOLUME 9.6 NEUTROPHIL % 66.3 LYMPHOCYTE % 18.6 L MONOCYTE % 12.9 H EOSINOPHIL % 1.1 BASOPHIL % 0.5 NEUTROPHIL # 5.18 LYMPHOCYTE # 1.46 MONOCYTE # 1.01 H EOSINOPHIL # 0.09 BASOPHIL # 0.04 MAG (08/20/23 03:26) MAGNESIUM 1.6 PHOS (08/20/23 03:26) PHOSPHOROUS 2.1 D L Signed in PatientKeeper by Seamus Ibarra MD on 08/20/23 at 14:58 at 1458 ATTENTION *EDITS and/or ADDENDA must be made in Patient Keeper for this note. * * Edits and ammendments created in [facility] are not visible * * in Patient Keeper or the legal medical record ([facility]). * [facility] [facility] #: [id number] END OF REPORT [facility] 2023-08-20 07:35:00 [facility] ([facility]) Cardiology Progress Notes REPORT #: [id number] REPORT STATUS: Signed DATE: 08/20/23 TIME: 734 PATIENT: ROCK GOMEZ UNIT #: [id number] ROOM #: P.0405 BED: A : 36 AGE: 88 SEX: F ATTEND: Marianne Mckay MD ADM AUTHOR: Funmilayo Ibarra ATTENTION *EDITS and/or ADDENDA must be made in Patient Keeper for this note. * * Edits and ammendments created in [employer] are not visible * * in Patient Keeper or the legal medical record (HPF). * -- CO-SIGNATURE -- COMMENTS: The patient was seen on rounds with JOSE Youssef. The patient has no complaints Examination demonstrates normal heart sounds and clear lung hwang. Impression and plan The patient is an 88-year-old female with ischemic cardiomyopathy and an EF of 35% which is recently dropped in the last couple of months with multivessel coronary artery disease. Fortunately the patient has outstanding targets and despite her age and frailty we feel as a team that she would benefit from bypass surgery. The patient underwent three-vessel bypass surgery on August 17 and is looking good post procedure. The patient is dependent on temporary pacemaker and will likely need a pacemaker after this I suspect. Continue dual antiplatelet therapy Continue statin Working with physical and Occupational Therapy. Signed in PatientKeeper by YUE GARZA MD on 09/19/23 at 16:49 -- ASSESSMENT AND PLAN -- PROBLEMS: 1: NSTEMI (non-ST elevated myocardial infarction) A/P: The patient is an 88-year-old female (patient of Dr. Gianna Ambrose) has a PMHx of coronary artery disease (s/p PCI with 3 ALEC), family history of coronary artery disease, carotid artery disease, hypertension, hyperlipidemia, h/o nicotine use, asthma, chronic bronchitis, anxiety. She has been having chest pressure radiating to her jaw and shortness of breath for the past 3 weeks. She was evaluated by her medical clinic manager, had stress test on 07/28/2023 what was abnormal, showed cardiomyopathy, an EF of 34%, severe inferolateral, posterolateral ischemia. Echocardiogram (06/2023) showed an EF 55-60%, moderate MR. She had coronary angiogram on 07/31/23 and showed three vessel coronary artery disease, torturous aorta with small abdominal aortic aneurysm. elevated LVEDP that is not amenable for PCI. She was evaluated by CV surgery, Dr. Montiel, for CABG. She presented at an outside hospital with complaint of chest pain radiating to her left jaw, diaphoresis and she was ruled in NSTEMI. She was transferred here to [facility] for higher level of care. Chest x-ray showed interstitial and basilar airspace edema/infiltrates, cardiomegaly. Blood work showed troponin of 534.3, BNP 539, Mg 1.3. She was transferred to CVICU for closer observation and is being transferred out to CVIMU now. She underwent CABG x3V (SCHWARTZ-LAD, rSVG-OM1, rSVG-PDA) on 08/17/[address] Montiel. She was transferred to CVICU for post-op management and extubated POD. - S/p CABG x 3V on 08/17/23. Temporary pacer dependent, pacing at 80, beta rashi on hold - On DAPT with aspirin and clopidogrel - On atorvastatin 80mg daily - On PT/OT/IS -- SUBJECTIVE -- CHIEF COMPLAINT: NSTEMI PATIENT NARRATIVE: Out of bed and in chair. Paced at HR 80. On 4L nasal cannula. She denies complaints today. Family at bedside. No acute events overnight. -REVIEW OF SYSTEMS- GENERAL: Negative for fever, malaise, fatigue. EYES: Negative for blurry vision. No diplopia. EARS/NOSE/THROAT: Negative for sore throat. No otalgia. No rhinorrhea. RESPIRATORY: Negative for dyspnea or wheeze. No cough. CARDIOVASCULAR: Negative for chest pain or palpitations. No extremity swelling. GASTROINTESTINAL: Negative for abdominal pain or nausea. No emesis. No diarrhea. GENITOURINARY: Negative for dysuria, frequency, or urgency. No gross hematuria. MUSCULOSKELETAL: Negative for joint stiffness, pain, or arthralgias. SKIN: Negative for rashes. No pruritus. NEUROLOGICAL: Negative for headache. No vertigo. Denies paresthesias. PSYCHIATRIC: Negative for specific complaints. -- OBJECTIVE -- VITALS (08/19 13:01 - 08/20 13:01): Temperature F: 97.1 (97.1 - 97.7) Temperature source: Oral Pulse Rate 80 (79 - 80) Respiratory rate: 34 (20 - 39) Blood pressure: 127/90 (93/43 - 179/90) Blood pressure source: Arterial I/Os (08/19 07:00 - 08/20 07:00): Net -435.00 Intake 400.00 Output 835 -EXAM- OTHER: Constitutional: Well developed, well nourished patient, in no acute distress. Derm/Integumentary: Warm and dry with no rashes, sores, or lesions. HEENT: Eyes-sclera clear and white, symmetrical w/ no lag. ENT - Palate and gums pink, mucosa moist, no pallor/cyanosis. Neck: supple with no masses, no thyromegaly, No JVD. Respiratory: Clear to auscultation. Chest: Median sternotomy intact, no drainage Heart: S1S2+, Regular Rate and Rhythm, No murmurs, rubs, or gallops. Gastrointestinal: + Bowel Sounds all quadrants. Soft, nontender with no masses or organomegaly; No HJR. Musculoskeletal: Equal strength in all extremities. No weakness. Neurology: Alert and oriented X 3. Calm, cooperative affect. No focal deficits. Extremities: + peripheral pulses. No clubbing, cyanosis. No lower extremity edema. -- DATA -- MEDICATIONS ACETAMINOPHEN 650 MG RECTAL Q4H PRN ALBUTEROL SULFATE 2.5 MG NEB RTQ6H PRN LACTULOSE 30 ML PO BID PRN polyethylene glycoL 3350 1 PKT PO DAILY CALCIUM GLUC IN NACL, ISO-OSM 2 GM IV ASDIR PRN LACTULOSE 30 ML PO ASDIR PRN ACETAMINOPHEN 650 MG PO Q4H PRN LACTULOSE 30 ML PO ASDIR PRN ENOXAPARIN 30 MG SUBQ DAILY NITROGLYCERIN 0.4 MG SL Q5M PRN clopidogreL 75 MG PO DAILY POTASSIUM CHLORIDE 20 MEQ IV ASDIR (PRN) SENNOSIDES 2 TAB PO ASDIR PRN ASPIRIN 81 MG PO DAILY ATORVASTATIN CALCIUM 80 MG PO BEDTIME SODIUM CHLORIDE 10 mL 10 ML IV ASDIR HYOSCYAMINE SULFATE 0.125 MG PO DAILY PRN bisacodyL 10 MG RECTAL ASDIR PRN CYANOCOBALAMIN 500 MCG PO DAILY DEXTROSE 50%-WATER 25 ML IV ASDIR PRN GLUCAGON 1 MG IM ASDIR PRN SOD BIPHOS/POT PHOSPHATE 2 PKT PO ASDIR (PRN) DOCUSATE SODIUM 200 MG PO DAILY ACETAMINOPHEN 650 MG PO Q6H PRN ONDANSETRON 4 MG PO Q6H PRN MAGNESIUM HYDROXIDE 30 ML PO ASDIR PRN MONTELUKAST SODIUM 10 MG PO DAILY@1800 ONDANSETRON HCL/PF 4 MG IV Q6H PRN bisacodyL 10 MG RECTAL DAILY PRN MAGNESIUM 1 GM IV ASDIR PRN SODIUM BICARBONATE 8.4% 50 MEQ IV .ONCE PRN MUPIROCIN 1 APPLIC NASAL BID FERROUS SULFATE 325 MG PO DAILY LABS BLOOD GAS W/ELECTROLYTES (08/20/23 08:09) ARTERIAL BLOOD GAS PH 7.49 H ARTERIAL BLOOD GAS PCO2 36.8 ARTERIAL BLOOD GAS PO2 149.2 H BICARBONATE TOTAL HCO3 27.7 H BASE EXCESS 4.4 H ABG O2 SATURATION 99.1 ARTERIAL FIO2 44.0 ABG VENT MODE MIXED VENOUS ALLENS TEST NOT APPLICABLE SODIUM (POC) 128 L POTASSIUM (POC) 4.30 CHLORIDE (ARTERIAL) 91 D L IONIZED CALCIUM 1.13 POC LACTIC ACID 1.58 TOTAL HGB 14.0 D CARBOXYHEMOGLOBIN 1.2 METHEMOGLOBIN <0.8 HHb 0.9 TCO2 ARTERIAL 28.8 BLOOD GAS W/ELECTROLYTES (08/20/23 08:01) ARTERIAL BLOOD GAS PH 7.47 H ARTERIAL BLOOD GAS PCO2 32.9 L ARTERIAL BLOOD GAS PO2 101.1 H BICARBONATE TOTAL HCO3 23.2 BASE EXCESS 0.0 ABG O2 SATURATION 97.9 ARTERIAL FIO2 40.0 ABG VENT MODE NASAL CANNULA ALLENS TEST NOT APPLICABLE SODIUM (POC) 139 POTASSIUM (POC) 4.71 CHLORIDE (ARTERIAL) 105 GLUCOSE 110 H IONIZED CALCIUM 1.23 POC LACTIC ACID 1.59 TOTAL HGB 11.1 L OXYHEMOGLOBIN 97.5 CARBOXYHEMOGLOBIN 0.1 METHEMOGLOBIN <0.8 HHb 2.1 TCO2 ARTERIAL 24.3 BASIC METABOLIC PANEL (08/20/23 03:26) SODIUM 141 POTASSIUM 3.4L L CHLORIDE 108H H CARBON DIOXIDE 27 GLUCOSE 112H H BLOOD UREA NITROGEN 16 GLOMERULAR FILTRATION RATE >=60 max estimate CREATININE 0.50L L CALCIUM 8.7 CBC W/AUTO DIFF (08/20/23 03:26) WHITE BLOOD CELL 7.8 RED BLOOD CELL 3.04 L HEMOGLOBIN 8.8L L HEMATOCRIT 27.1L L MEAN CELL VOLUME 89.1 MEAN CELL HGB 28.9 MEAN CELL HGB CONCENTRATION 32.5 L RED CELL DISTRIBUTION WIDTH 15.4 PLATELET COUNT 173 MEAN PLATELET VOLUME 9.6 NEUTROPHIL % 66.3 LYMPHOCYTE % 18.6 L MONOCYTE % 12.9 H EOSINOPHIL % 1.1 BASOPHIL % 0.5 NEUTROPHIL # 5.18 LYMPHOCYTE # 1.46 MONOCYTE # 1.01 H EOSINOPHIL # 0.09 BASOPHIL # 0.04 MAG (08/20/23 03:26) MAGNESIUM 1.6 PHOS (08/20/23 03:26) PHOSPHOROUS 2.1 D L -- ATTESTATION -- CARE ACTIVITIES / CARE COORDINATION: - I have reviewed the history and repeated the snyder elements - I have seen and examined this patient - I have reviewed the progress in the clinical course since the last examination - I have discussed the patient's condition with other members of the care team ADDITIONAL DETAIL: Plan of care discussed with Dr. Yue Garza Signed in PatientKeeper by FUNMILAYO IBARRA on 08/20/23 at 19:59 Cosigned by YUE GARZA MD on 09/19/23 at 16:49 at 1649 at 1649 ATTENTION *EDITS and/or ADDENDA must be made in Patient Keeper for this note. * * Edits and ammendments created in [employer] are not visible * * in Patient Keeper or the legal medical record ([facility]). * RPT #: [id number] END OF REPORT [facility] 2023-08-19 15:53:00 [facility] ([facility]) Intensive Care Progress Note REPORT #: [id number] REPORT STATUS: Signed DATE: 08/19/23 TIME: 155 PATIENT: ROCK GOMEZ UNIT #: [id number] ROOM #: P.0307 BED: 1 : 36 AGE: 88 SEX: F ATTEND: Marianne Mckay MD [facility] AUTHOR: Seamus Ibarra MD ATTENTION *EDITS and/or ADDENDA must be made in Patient Keeper for this note. * * Edits and ammendments created in [employer] are not visible * * in Patient Keeper or the legal medical record ([facility]). * -- ASSESSMENT AND PLAN -- GENERAL ASSESSMENT: I examined her, reviewed her EMR information and data and discussed her plan of care with supporting clinical and ancillary services. Assessment and Plan NEURO: # ICU Sedation, analgesia H/o Anxiety - Limited benzo as needed. - PRN pain meds RESP: # Acute resp insufficiency on MV - Extubated this 08/18 - Continue with aggressive pulmonary toilet. - continue with nebs. as needed. - Diurese and encourage good pulm toilet. CV # S/p CABG X 3 as above H/o mv CAD Acute chronotropic incompetence LVH H/o HTN - BP is holding. - Is Pacer dependent: Continue with PPM care for now. - Hold BBlocker. - Follow up on K and Mag Nutrition ADAT RENAL: - good uop, follow Create. - Hold fluids for now. HEm/ID: # Acute blood loss anemia - Appropriate response to PRBCs - Serially reassessing Prophylaxis - SCDs - Pharmacoprophylaxis held 07/30 high risk for bleeding Medications reviewed Critical condition post CABG CCT 40 08/18: discussed with family 08/19: discussed with family. -- SUBJECTIVE -- HPI: Patient is awake and alert. Short breaths and tired. Still ezekiel underneath. -- OBJECTIVE -- VITALS (08/18 15:53 - 08/19 15:53): Temperature F: 98.1 (97.5 - 99.4) Temperature source: Oral Pulse Rate 80 Respiratory rate: 27 (20 - 44) Blood pressure: 120/50 (97/44 - 127/58) Blood pressure source: Arterial I/Os (08/18 07:00 - 08/19 07:00): Net 462.00 Intake 1,200.00 Output 738 -- DATA -- MEDICATIONS ACETAMINOPHEN 650 MG RECTAL Q4H PRN ALBUTEROL SULFATE 2.5 MG NEB RTQ6H PRN LACTULOSE 30 ML PO BID PRN polyethylene glycoL 3350 1 PKT PO DAILY CALCIUM GLUC IN NACL, ISO-OSM 2 GM IV ASDIR PRN LACTULOSE 30 ML PO ASDIR PRN ACETAMINOPHEN 650 MG PO Q4H PRN LACTULOSE 30 ML PO ASDIR PRN ENOXAPARIN 30 MG SUBQ DAILY NITROGLYCERIN 0.4 MG SL Q5M PRN clopidogreL 75 MG PO DAILY POTASSIUM CHLORIDE 20 MEQ IV ASDIR (PRN) SENNOSIDES 2 TAB PO ASDIR PRN ASPIRIN 81 MG PO DAILY ATORVASTATIN CALCIUM 80 MG PO BEDTIME SODIUM CHLORIDE 10 mL 10 ML IV ASDIR HYOSCYAMINE SULFATE 0.125 MG PO DAILY PRN bisacodyL 10 MG RECTAL ASDIR PRN CYANOCOBALAMIN 500 MCG PO DAILY DEXTROSE 50%-WATER 25 ML IV ASDIR PRN GLUCAGON 1 MG IM ASDIR PRN DOCUSATE SODIUM 200 MG PO DAILY ACETAMINOPHEN 650 MG PO Q6H PRN ONDANSETRON 4 MG PO Q6H PRN MAGNESIUM HYDROXIDE 30 ML PO ASDIR PRN methocarbamoL 250 MG PO Q8H MONTELUKAST SODIUM 10 MG PO DAILY@1800 ONDANSETRON HCL/PF 4 MG IV Q6H PRN bisacodyL 10 MG RECTAL DAILY PRN MAGNESIUM 1 GM IV ASDIR PRN SODIUM BICARBONATE 8.4% 50 MEQ IV .ONCE PRN MUPIROCIN 1 APPLIC NASAL BID FERROUS SULFATE 325 MG PO DAILY LABS CBC W/AUTO DIFF (08/19/23 04:09) WHITE BLOOD CELL 9.7 RED BLOOD CELL 3.20 L HEMOGLOBIN 9.2L L HEMATOCRIT 28.6L L MEAN CELL VOLUME 89.4 MEAN CELL HGB 28.8 MEAN CELL HGB CONCENTRATION 32.2 L RED CELL DISTRIBUTION WIDTH 15.8 PLATELET COUNT 167 MEAN PLATELET VOLUME 10.0 NEUTROPHIL % 72.3 LYMPHOCYTE % 11.5 L MONOCYTE % 15.2 H EOSINOPHIL % 0.2 BASOPHIL % 0.3 NEUTROPHIL # 6.99 LYMPHOCYTE # 1.11 MONOCYTE # 1.47 H EOSINOPHIL # 0.02 BASOPHIL # 0.03 BASIC METABOLIC PANEL (08/19/23 01:33) SODIUM 140 POTASSIUM 4.1 CHLORIDE 108H H CARBON DIOXIDE 23 GLUCOSE 125H H BLOOD UREA NITROGEN 21 GLOMERULAR FILTRATION RATE >=60 max estimate CREATININE 0.70 CALCIUM 8.8 MAG (08/19/23 01:33) MAGNESIUM 1.9 Signed in PatientKeeper by Seamus Ibarra MD on 08/19/23 at 15:55 at 1555 ATTENTION *EDITS and/or ADDENDA must be made in Patient Keeper for this note. * * Edits and ammendments created in [employer] are not visible * * in Patient Keeper or the legal medical record ([facility]). * RPT #: [id number] END OF REPORT [facility] 2023-08-19 14:02:00 [facility] ([facility]) Cardiology Progress Notes REPORT #: [id number] REPORT STATUS: Signed DATE: 08/19/23 TIME: 1402 PATIENT: ROCK GOMEZ UNIT #: [id number] ROOM #: P.0307 BED: 1 : 36 AGE: 88 SEX: F ATTEND: Marianne Mckay MD ADM AUTHOR: Lisa Wing DO [facility] ATTENTION *EDITS and/or ADDENDA must be made in Patient Keeper for this note. * * Edits and ammendments created in [employer] are not visible * * in Patient Keeper or the legal medical record ([facility]). * -- CO-SIGNATURE -- COMMENTS: Agree with the findings and plan as documented by Housestaff I have seen and examined this patient * my personal evaluation is S/p [id number] (SCHWARTZ to LAD, SVG to OM1, SVG to PDA, 08/17/2023 HFpEF-acute on chronic Complete heart block-postoperative Continue diuresis with Lasix 40 mg IV daily Continue aspirin Plavix and Lipitor Continue pacing via TPW I devoted my full attention for this service to the direct care of this patient Critical care time spent 33 minutes Life threatening disease due to s/p CABG during this admission Organ systems impaired or failing: Cardiac I have reviewed the history and repeated the snyder elements I have reviewed the progress in the clinical course since the last examination I have discussed the patient's condition with other consultants and members of the care team I have independently interpreted available diagnostic studies (EKG CXR Echo Cardiac cath) Signed in PatientKeeper by GEETHA PINTO MD on 08/20/23 at 13:20 -- ASSESSMENT AND PLAN -- HOSPITAL COURSE TO DATE: - 08/11 NSTEMI, downgraded to IMU --- - 08/17 s/p [id number] (SCHWARTZ to LAD, SVG to OM1, SVG to PDA, 08/17/2023, Dr. Montiel); postop CHB - 08/18: persistent CHB, TPW in place - 08/19: persistent CHB, TPW in placed GENERAL ASSESSMENT: The patient is an 88-year-old female (patient of Dr. Gianna Ambrose) has a PMHx of coronary artery disease (s/p PCI with 3 ALEC), family history of coronary artery disease, carotid artery disease, hypertension, hyperlipidemia, h/o nicotine use, asthma, chronic bronchitis, anxiety. She has been having chest pressure radiating to her jaw and shortness of breath for the past 3 weeks. She was evaluated by her medical clinic manager, had stress test on 07/28/2023 what was abnormal, showed cardiomyopathy, an EF of 34%, severe inferolateral, posterolateral ischemia. Echocardiogram (06/2023) showed an EF 55-60%, moderate MR. She had coronary angiogram on 07/31/23 and showed three vessel coronary artery disease, torturous aorta with small abdominal aortic aneurysm. elevated LVEDP that is not amenable for PCI. She was evaluated by CV surgery, Dr. Montiel, for CABG. She presented at an outside hospital with complaint of chest pain radiating to her left jaw, diaphoresis and she was ruled in NSTEMI. She was transferred here to [facility] for higher level of care. Chest x-ray showed interstitial and basilar airspace edema/infiltrates, cardiomegaly. Blood work showed troponin of 534.3, BNP 539, Mg 1.3. She denies chest pain, shortness of breath, palpitations now. Cardiology consulted for MVCAD. CT surgery planning CABG 08/17. PROBLEMS: 1: NSTEMI (non-ST elevated myocardial infarction) A/P: - TTE 08/09/2023 LVEF 40-44%, moderate MR - CT chest w/o contrast showed RUL PNA, Right pleural effusion, Plate-like atelectasis in the lower lobes. - On aspirin 81mg qd, clopidogrel 75mg qd, atorvastatin 80mg qd, and metoprolol XL 25mg BID - s/p [id number] (SCHWARTZ to LAD, SVG to OM1, SVG to PDA, 08/17/2023, Dr. Montiel) - chest tube management per CT surgery - PT/OT/IS - cont to monitor and replete electrolytes 2: CAD (coronary artery disease) A/P: - s/p PCI 2011 - s/p [id number] (SCHWARTZ to LAD, SVG to OM1, SVG to PDA, 08/17/2023, Dr. Montiel) - On aspirin 81mg qd, clopidogrel 75mg qd, atorvastatin 80mg qd, and metoprolol XL 25mg BID - monitor on tele 3: Complete heart block, post-surgical A/P: - possible myocardial stunning postop - monitor on tele - TPW pacing - consider EP consult -- SUBJECTIVE -- CHIEF COMPLAINT: AMELIA this AM. SAUNDRA overnight. s/p CABG. No new complaints.. Tele: V paced 80bpm, CHB w/ TPW -REVIEW OF SYSTEMS- COMMENT: 10 point ROS negative unless noted. -- OBJECTIVE -- VITALS (08/18 14:02 - 08/19 14:02): Temperature F: 99.4 (97.5 - 99.4) Temperature source: Oral Pulse Rate 80 Respiratory rate: 27 (20 - 44) Blood pressure: 120/50 (97/44 - 127/58) Blood pressure source: Arterial I/Os (08/18 07:00 - 08/19 07:00): Net 462.00 Intake 1,200.00 Output 738 -EXAM- GENERAL: Well developed, well nourished, in no apparent distress. MOUTH: Oropharynx without deformities or lesions, normal mucosa. CHEST: sternotomy site dressing c/d/i; chest tubes in place, + TPW LUNGS: Clear bilaterally with normal respiratory effort. HEART: RRR, normal S1, S2, no murmurs ABDOMEN: Soft, non-tender EXTREMITIES: No clubbing, no cyanosis, no edema. NEUROLOGICAL: No focal deficits, cranial nerves II-XII grossly intact PULSES: Pulses normal in all extremities. SKIN: Intact without significant lesions, or rashes. PSYCHIATRIC: Alert and oriented to time, person, place. Normal mood and affect, intact judgment and insight. -- DATA -- MEDICATIONS ACETAMINOPHEN 650 MG RECTAL Q4H PRN ALBUTEROL SULFATE 2.5 MG NEB RTQ6H PRN LACTULOSE 30 ML PO BID PRN polyethylene glycoL 3350 1 PKT PO DAILY CALCIUM GLUC IN NACL, ISO-OSM 2 GM IV ASDIR PRN LACTULOSE 30 ML PO ASDIR PRN ACETAMINOPHEN 650 MG PO Q4H PRN LACTULOSE 30 ML PO ASDIR PRN ENOXAPARIN 30 MG SUBQ DAILY NITROGLYCERIN 0.4 MG SL Q5M PRN clopidogreL 75 MG PO DAILY POTASSIUM CHLORIDE 20 MEQ IV ASDIR (PRN) SENNOSIDES 2 TAB PO ASDIR PRN ASPIRIN 81 MG PO DAILY ATORVASTATIN CALCIUM 80 MG PO BEDTIME SODIUM CHLORIDE 10 mL 10 ML IV ASDIR HYOSCYAMINE SULFATE 0.125 MG PO DAILY PRN bisacodyL 10 MG RECTAL ASDIR PRN CYANOCOBALAMIN 500 MCG PO DAILY DEXTROSE 50%-WATER 25 ML IV ASDIR PRN GLUCAGON 1 MG IM ASDIR PRN DOCUSATE SODIUM 200 MG PO DAILY ACETAMINOPHEN 650 MG PO Q6H PRN ONDANSETRON 4 MG PO Q6H PRN MAGNESIUM HYDROXIDE 30 ML PO ASDIR PRN methocarbamoL 250 MG PO Q8H MONTELUKAST SODIUM 10 MG PO DAILY@1800 ONDANSETRON HCL/PF 4 MG IV Q6H PRN bisacodyL 10 MG RECTAL DAILY PRN MAGNESIUM 1 GM IV ASDIR PRN SODIUM BICARBONATE 8.4% 50 MEQ IV .ONCE PRN MUPIROCIN 1 APPLIC NASAL BID FERROUS SULFATE 325 MG PO DAILY LABS CBC W/AUTO DIFF (08/19/23 04:09) WHITE BLOOD CELL 9.7 RED BLOOD CELL 3.20 L HEMOGLOBIN 9.2L L HEMATOCRIT 28.6L L MEAN CELL VOLUME 89.4 MEAN CELL HGB 28.8 MEAN CELL HGB CONCENTRATION 32.2 L RED CELL DISTRIBUTION WIDTH 15.8 PLATELET COUNT 167 MEAN PLATELET VOLUME 10.0 NEUTROPHIL % 72.3 LYMPHOCYTE % 11.5 L MONOCYTE % 15.2 H EOSINOPHIL % 0.2 BASOPHIL % 0.3 NEUTROPHIL # 6.99 LYMPHOCYTE # 1.11 MONOCYTE # 1.47 H EOSINOPHIL # 0.02 BASOPHIL # 0.03 BASIC METABOLIC PANEL (08/19/23 01:33) SODIUM 140 POTASSIUM 4.1 CHLORIDE 108H H CARBON DIOXIDE 23 GLUCOSE 125H H BLOOD UREA NITROGEN 21 GLOMERULAR FILTRATION RATE >=60 max estimate CREATININE 0.70 CALCIUM 8.8 MAG (08/19/23 01:33) MAGNESIUM 1.9 Signed in PatientKeeper by LISA WING on 08/19/23 at 14:05 Cosigned by GEETHA PINTO MD on 08/20/23 at 13:20 at 1320 at 1320 ATTENTION *EDITS and/or ADDENDA must be made in Patient Keeper for this note. * * Edits and ammendments created in [employer] are not visible * * in Patient Keeper or the legal medical record ([facility]). * RPT #: [id number] END OF REPORT [facility] 2023-08-19 10:53:00 [facility] ([facility]) Hospitalist Progress Note REPORT #: [id number] REPORT STATUS: Signed DATE: 08/19/23 TIME: 1053 PATIENT: ROCK GOMEZ UNIT #: [id number] ROOM #: P.0307 BED: 1 : 36 AGE: 88 SEX: F ATTEND: Marianne Mckay MD ADM AUTHOR: Marianne Mckay MD ATTENTION *EDITS and/or ADDENDA must be made in Patient Keeper for this note. * * Edits and ammendments created in [employer] are not visible * * in Patient Keeper or the legal medical record ([facility]). * -- ASSESSMENT AND PLAN -- GENERAL ASSESSMENT: ASSESSMENT AND PLAN: 1. Non-ST segment elevation myocardial infarction in a patient with a known history of severe multivessel coronary artery disease including proximal 80% LAD, 90% ostial and proximal circumflex and distal RCA with stent occlusion, preserved left ventricular ejection fraction on angiogram. The patient has recently been evaluated by Dr. King Montiel of Cardiothoracic Surgery services for consideration of coronary artery bypass and grafting. We will continue aspirin, heparin, beta blockers, statins and nitroglycerin. The patient underwent 3V CABG, SCHWARTZ to LAD, saphenous vein graft to the obtuse marginal and saphenous vein graft to the posterior descending artery by Dr King Montiel 08/17/20. EBL 750 cc. Received 2 units of PRBC and 2 Cell Saver. Urine output is good. [address] extubated POD 0 2. Pulmonary edema, related to decompensated diastolic congestive cardiac failure. Cautious use of diuretics. 3. Hypertension. Continue metoprolol and losartan. 4. Hyperlipidemia. Total cholesterol 226, HDL 90, LDL 139, triglycerides 121. Continue atorvastatin 80 mg daily. 5. Hypomagnesemia, replete. 6. Asthma. Continue montelukast. 7. Anxiety, not otherwise specified. Continue lorazepam. 8. Acute exacerbation of likely diastolic congestive heart failure. Diurese as above. 9. Osteoarthritis, avoid nonsteroidals. 10. Chronic kidney disease, stage II. 11. Hypokalemia, replete 12. Complete heart block, temporary pacer dependent. EP consulted 13. Atelectasis. ADDITIONAL COMMENTS: The patient underwent 3V CABG, SCHWARTZ to LAD, saphenous vein graft to the obtuse marginal and saphenous vein graft to the posterior descending artery by Dr King Montiel 08/17/20. extubated 08/17. EP consult for CHB -- SUBJECTIVE -- HPI: This 88-year-old female, a patient of Dr. Gianna Ambrose, has a past medical history significant for hypertension, hyperlipidemia, asthma, anxiety, chronic bronchitis, and coronary artery disease, status post angioplasty in 2011. A few weeks ago, the patient developed new onset of jaw pain and dyspnea, and noninvasive cardiac workup by Dr. Ambrose including a nuclear stress test showed an ejection fraction of 34% with severe inferolateral and posterolateral ischemia, a change from a previously normal ejection fraction of 55% to 60% in 06/2023. Subsequent coronary angiogram on 07/31/2023 showed severe multivessel coronary artery disease including 80% proximal LAD, 90% ostial and proximal circumflex, heavily calcified RCA with a distal occluded stent, and an ejection fraction during the heart catheterization to be 55%, elevated left ventricular end diastolic pressure at 33. The patient was evaluated by Dr. King Montiel of Cardiothoracic Surgery services on 08/06 and discussions were underway as regards to possible bypass surgery. Since that time, the patient has had increased anxiety about the possibility of undergoing bypass surgery and has not been able to sleep or rest well. On the morning of admission, she developed central chest pressure with radiation to the jaw and worsening shortness of breath. She presented to the [facility] in [place], [place], where troponin was elevated to 300 range and EKG was negative for ST elevation. She was also found to be in fluid overload, started on ACS protocol, heparin, Lasix and transferred to the [facility] for higher level of care. Troponin has trended up 530 and BNP 539, and chest x-ray shows interstitial pulmonary edema/infiltrates. She is being admitted to the intensive care unit for further evaluation and management. PATIENT NARRATIVE: 08/10: No acute events overnight. No significant chest pain or shortness of breath. Anxious. Troponin is trending down. On intravenous heparin, beta-blockers aspirin and statins. Plavix is on hold in case the patient goes for CABG. Cardiology and cardiothoracic surgery services following. Await further recommendations 08/11: No chest pain jaw pain or arm pain. On heparin infusion. Plans for high risk CABG week of 08/[address] King Montiel. The patient is being transitioned out to [facility], pending CABG. Walked 320 feet with physical therapy 08/12: Denies any chest pain or shortness of breath. No headache or dizziness. No nausea or vomiting. Has chronic constipation. On heparin infusion. Plans for high risk CABG week of 08/[address] King Montiel 08/13: No acute events overnight. No chest pain or shortness of breath. No headache or dizziness. The patient was reluctant to get her blood drawn for the PTT, explained to by the nurses. Agreeable. PTT therapeutic. Potassium low, 2.9, replaced On Lasix 40 mg IV daily. Intake and output are not accurate. Walked about 320 feet with physical therapy. 08/14: No acute events overnight. Just anxious, taking her benzodiazepines. On heparin infusion. On diuretics and electrolyte replacement. Plans for high risk CABG week of 08/[address] King Montiel. 08/15: Heparin stopped by Dr. King Montiel. Surgery most likely 08/17. In general doing okay. No chest pain or shortness of breath. No headache or dizziness. Anxious. 08/16: No acute events. No chest pain or shortness of breath. In general feels all right. Plans for high risk CABG 08/[address] King Montiel 08/17: The patient underwent 3V CABG, SCHWARTZ to LAD, saphenous vein graft to the obtuse marginal and saphenous vein graft to the posterior descending artery by Dr King Montiel 08/17/20. EBL 750 cc. Received 2 units of PRBC and 2 Cell Saver. Urine output is good. [address] extubated 08/17 08/18: Was on 2 L of oxygen, wean down to room air. Complete heart block, temporary pacer dependent. EP consulted. [address] 08/19: Patient developed lethargic today after pain medications. On 2 L via NC Temporary pacer dependent. [address] walked 120 feet with PT. tired appearing -- OBJECTIVE -- VITALS (08/18 10:53 - 08/19 10:53): Temperature F: 99.4 (96.7 - 99.4) Temperature source: Oral Pulse Rate 80 (79 - 80) Respiratory rate: 27 (20 - 44) Blood pressure: 120/50 (97/44 - 130/58) Blood pressure source: Arterial I/Os (08/18 07:00 - 08/19 07:00): Net 462.00 Intake 1,200.00 Output 738 -EXAM- GENERAL: GENERAL: Elderly female, anxious, not in any acute distress. VITAL SIGNS: Weight is 61.3 kilograms. Body mass index 27.3. HEENT: Head is atraumatic. NECK: Supple. No thyromegaly. No JVD. CARDIOVASCULAR: Regular rate and rhythm. CHEST: sternotomy; 2 CTs LUNGS: Coarse BS ABDOMEN: Soft, nondistended, nontender. No organomegaly. EXTREMITIES: No edema, cyanosis, or clubbing. Pedal pulses palpable. NEUROLOGIC: No focal deficit. -- DATA -- MEDICATIONS ACETAMINOPHEN 650 MG RECTAL Q4H PRN ALBUTEROL SULFATE 2.5 MG NEB RTQ6H PRN LACTULOSE 30 ML PO BID PRN polyethylene glycoL 3350 1 PKT PO DAILY CALCIUM GLUC IN NACL, ISO-OSM 2 GM IV ASDIR PRN LACTULOSE 30 ML PO ASDIR PRN ACETAMINOPHEN 650 MG PO Q4H PRN LACTULOSE 30 ML PO ASDIR PRN NITROGLYCERIN 0.4 MG SL Q5M PRN clopidogreL 75 MG PO DAILY POTASSIUM CHLORIDE 20 MEQ IV ASDIR (PRN) SENNOSIDES 2 TAB PO ASDIR PRN ASPIRIN 81 MG PO DAILY ATORVASTATIN CALCIUM 80 MG PO BEDTIME SODIUM CHLORIDE 10 mL 10 ML IV ASDIR HYOSCYAMINE SULFATE 0.125 MG PO DAILY PRN bisacodyL 10 MG RECTAL ASDIR PRN CYANOCOBALAMIN 500 MCG PO DAILY DEXTROSE 50%-WATER 25 ML IV ASDIR PRN GLUCAGON 1 MG IM ASDIR PRN DOCUSATE SODIUM 200 MG PO DAILY ACETAMINOPHEN 650 MG PO Q6H PRN ONDANSETRON 4 MG PO Q6H PRN MAGNESIUM HYDROXIDE 30 ML PO ASDIR PRN methocarbamoL 250 MG PO Q8H MONTELUKAST SODIUM 10 MG PO DAILY@1800 ONDANSETRON HCL/PF 4 MG IV Q6H PRN bisacodyL 10 MG RECTAL DAILY PRN MAGNESIUM 1 GM IV ASDIR PRN SODIUM BICARBONATE 8.4% 50 MEQ IV .ONCE PRN MUPIROCIN 1 APPLIC NASAL BID FERROUS SULFATE 325 MG PO DAILY LABS CBC W/AUTO DIFF (08/19/23 04:09) WHITE BLOOD CELL 9.7 RED BLOOD CELL 3.20 L HEMOGLOBIN 9.2L L HEMATOCRIT 28.6L L MEAN CELL VOLUME 89.4 MEAN CELL HGB 28.8 MEAN CELL HGB CONCENTRATION 32.2 L RED CELL DISTRIBUTION WIDTH 15.8 PLATELET COUNT 167 MEAN PLATELET VOLUME 10.0 NEUTROPHIL % 72.3 LYMPHOCYTE % 11.5 L MONOCYTE % 15.2 H EOSINOPHIL % 0.2 BASOPHIL % 0.3 NEUTROPHIL # 6.99 LYMPHOCYTE # 1.11 MONOCYTE # 1.47 H EOSINOPHIL # 0.02 BASOPHIL # 0.03 BASIC METABOLIC PANEL (08/19/23 01:33) SODIUM 140 POTASSIUM 4.1 CHLORIDE 108H H CARBON DIOXIDE 23 GLUCOSE 125H H BLOOD UREA NITROGEN 21 GLOMERULAR FILTRATION RATE >=60 max estimate CREATININE 0.70 CALCIUM 8.8 MAG (08/19/23 01:33) MAGNESIUM 1.9 -- QUALITY -- -MEDICATIONS- - I attest that the foregoing medication list in the medical record is true, accurate, and complete to the best of my knowledge. -- ATTESTATION -- CARE ACTIVITIES / CARE COORDINATION: - I have reviewed the history and repeated the snyder elements - I have seen and examined this patient - I have reviewed the progress in the clinical course since the last examination - I have discussed the patient's condition with other members of the care team Signed in PatientKeeper by Marianne Mckay MD on 08/20/23 at 18:40 at 1840 ATTENTION *EDITS and/or ADDENDA must be made in Patient Keeper for this note. * * Edits and ammendments created in [employer] are not visible * * in Patient Keeper or the legal medical record ([facility]). * RPT #: [id number] END OF REPORT [facility] 2023-08-18 15:27:00 [facility] ([facility]) Hospitalist Progress Note REPORT #: [id number] REPORT STATUS: Signed DATE: 08/18/23 TIME: 1526 PATIENT: ROCK GOMEZ UNIT #: [id number] ROOM #: P.[id number] BED: 1 : 36 AGE: 88 SEX: F ATTEND: Marianne Mckay MD ADM AUTHOR: Marianne Mckay MD ATTENTION *EDITS and/or ADDENDA must be made in Patient Keeper for this note. * * Edits and ammendments created in [employer] are not visible * * in Patient Keeper or the legal medical record ([facility]). * -- ASSESSMENT AND PLAN -- GENERAL ASSESSMENT: ASSESSMENT AND PLAN: 1. Non-ST segment elevation myocardial infarction in a patient with a known history of severe multivessel coronary artery disease including proximal 80% LAD, 90% ostial and proximal circumflex and distal RCA with stent occlusion, preserved left ventricular ejection fraction on angiogram. The patient has recently been evaluated by Dr. King Montiel of Cardiothoracic Surgery services for consideration of coronary artery bypass and grafting. We will continue aspirin, heparin, beta blockers, statins and nitroglycerin. The patient underwent 3V CABG, SCHWARTZ to LAD, saphenous vein graft to the obtuse marginal and saphenous vein graft to the posterior descending artery by Dr King Montiel 08/17/20. EBL 750 cc. Received 2 units of PRBC and 2 Cell Saver. Urine output is good. [address] extubated POD 0 2. Pulmonary edema, related to decompensated diastolic congestive cardiac failure. Cautious use of diuretics. 3. Hypertension. Continue metoprolol and losartan. 4. Hyperlipidemia. Total cholesterol 226, HDL 90, LDL 139, triglycerides 121. Continue atorvastatin 80 mg daily. 5. Hypomagnesemia, replete. 6. Asthma. Continue montelukast. 7. Anxiety, not otherwise specified. Continue lorazepam. 8. Acute exacerbation of likely diastolic congestive heart failure. Diurese as above. 9. Osteoarthritis, avoid nonsteroidals. 10. Chronic kidney disease, stage II. 11. Hypokalemia, replete 12. Complete heart block, temporary pacer dependent. EP consulted 13. Atelectasis. ADDITIONAL COMMENTS: The patient underwent 3V CABG, SCHWARTZ to LAD, saphenous vein graft to the obtuse marginal and saphenous vein graft to the posterior descending artery by Dr King Montiel 08/17/20. extubated 08/17. EP consult for CHB -- SUBJECTIVE -- HPI: This 88-year-old female, a patient of Dr. Gianna Ambrose, has a past medical history significant for hypertension, hyperlipidemia, asthma, anxiety, chronic bronchitis, and coronary artery disease, status post angioplasty in 2011. A few weeks ago, the patient developed new onset of jaw pain and dyspnea, and noninvasive cardiac workup by Dr. Ambrose including a nuclear stress test showed an ejection fraction of 34% with severe inferolateral and posterolateral ischemia, a change from a previously normal ejection fraction of 55% to 60% in 06/2023. Subsequent coronary angiogram on 07/31/2023 showed severe multivessel coronary artery disease including 80% proximal LAD, 90% ostial and proximal circumflex, heavily calcified RCA with a distal occluded stent, and an ejection fraction during the heart catheterization to be 55%, elevated left ventricular end diastolic pressure at 33. The patient was evaluated by Dr. King Montiel of Cardiothoracic Surgery services on 08/06 and discussions were underway as regards to possible bypass surgery. Since that time, the patient has had increased anxiety about the possibility of undergoing bypass surgery and has not been able to sleep or rest well. On the morning of admission, she developed central chest pressure with radiation to the jaw and worsening shortness of breath. She presented to the [facility] in [place], [place], where troponin was elevated to 300 range and EKG was negative for ST elevation. She was also found to be in fluid overload, started on ACS protocol, heparin, Lasix and transferred to the [facility] for higher level of care. Troponin has trended up 530 and BNP 539, and chest x-ray shows interstitial pulmonary edema/infiltrates. She is being admitted to the intensive care unit for further evaluation and management. PATIENT NARRATIVE: 08/10: No acute events overnight. No significant chest pain or shortness of breath. Anxious. Troponin is trending down. On intravenous heparin, beta-blockers aspirin and statins. Plavix is on hold in case the patient goes for CABG. Cardiology and cardiothoracic surgery services following. Await further recommendations 08/11: No chest pain jaw pain or arm pain. On heparin infusion. Plans for high risk CABG week of 08/[address] King Montiel. The patient is being transitioned out to [facility], pending CABG. Walked 320 feet with physical therapy 08/12: Denies any chest pain or shortness of breath. No headache or dizziness. No nausea or vomiting. Has chronic constipation. On heparin infusion. Plans for high risk CABG week of 08/[address] King Montiel 08/13: No acute events overnight. No chest pain or shortness of breath. No headache or dizziness. The patient was reluctant to get her blood drawn for the PTT, explained to by the nurses. Agreeable. PTT therapeutic. Potassium low, 2.9, replaced On Lasix 40 mg IV daily. Intake and output are not accurate. Walked about 320 feet with physical therapy. 08/14: No acute events overnight. Just anxious, taking her benzodiazepines. On heparin infusion. On diuretics and electrolyte replacement. Plans for high risk CABG week of 08/[address] King Montiel. 08/15: Heparin stopped by Dr. King Montiel. Surgery most likely 08/17. In general doing okay. No chest pain or shortness of breath. No headache or dizziness. Anxious. 08/16: No acute events. No chest pain or shortness of breath. In general feels all right. Plans for high risk CABG 08/[address] King Montiel 08/17: The patient underwent 3V CABG, SCHWARTZ to LAD, saphenous vein graft to the obtuse marginal and saphenous vein graft to the posterior descending artery by Dr King Montiel 08/17/20. EBL 750 cc. Received 2 units of PRBC and 2 Cell Saver. Urine output is good. [address] extubated 08/17 08/18: Was on 2 L of oxygen, wean down to room air. Complete heart block, temporary pacer dependent. EP consulted. [address] -- OBJECTIVE -- VITALS (08/17 15:27 - 08/18 15:27): Temperature F: 96.7 (96.7 - 98.6) Temperature source: Oral Pulse Rate 80 (79 - 80) Respiratory rate: 21 (15 - 47) Blood pressure: 110/54 (101/47 - 140/67) Blood pressure source: Arterial I/Os (08/17 07:00 - 08/18 07:00): Net -433.00 Intake 1,050.00 Output 1,483 -EXAM- GENERAL: GENERAL: Elderly female, anxious, not in any acute distress. VITAL SIGNS: Weight is 61.3 kilograms. Body mass index 27.3. HEENT: Head is atraumatic. NECK: Supple. No thyromegaly. No JVD. CARDIOVASCULAR: Regular rate and rhythm. CHEST: sternotomy; 2 CTs LUNGS: Coarse BS ABDOMEN: Soft, nondistended, nontender. No organomegaly. EXTREMITIES: No edema, cyanosis, or clubbing. Pedal pulses palpable. NEUROLOGIC: No focal deficit. -- DATA -- MEDICATIONS ACETAMINOPHEN 650 MG RECTAL Q4H PRN polyethylene glycoL 3350 1 PKT PO DAILY CALCIUM GLUC IN NACL, ISO-OSM 2 GM IV ASDIR PRN traMADol HCL 50 MG PO Q6HR LACTULOSE 30 ML PO ASDIR PRN LACTULOSE 30 ML PO ASDIR PRN clopidogreL 75 MG PO DAILY ATORVASTATIN CALCIUM 80 MG PO BEDTIME SODIUM CHLORIDE 10 mL 10 ML IV ASDIR HYOSCYAMINE SULFATE 0.125 MG PO DAILY PRN bisacodyL 10 MG RECTAL ASDIR PRN cloNIDine HCL 0.1 MG PO Q8H PRN DOCUSATE SODIUM 200 MG PO DAILY ACETAMINOPHEN 650 MG PO Q6H PRN ONDANSETRON 4 MG PO Q6H PRN MAGNESIUM HYDROXIDE 30 ML PO ASDIR PRN MONTELUKAST SODIUM 10 MG PO DAILY@1800 ONDANSETRON HCL/PF 4 MG IV Q6H PRN MAGNESIUM 1 GM IV ASDIR PRN FERROUS SULFATE 325 MG PO DAILY ALBUTEROL SULFATE 2.5 MG NEB RTQ6H PRN LACTULOSE 30 ML PO BID PRN ACETAMINOPHEN 650 MG PO Q4H PRN EPINEPHrine HCL/D5W 4 MG IV ASDIR ACETAMINOPHEN 650 MG PO Q6HR niCARdipine HCL with/in SODIUM CHLORIDE 100 mL BAG 25 MG IV TITRATE NITROGLYCERIN 0.4 MG SL Q5M PRN ONDANSETRON HCL/PF 4 MG IV Q6H PRN POTASSIUM CHLORIDE 20 MEQ IV ASDIR (PRN) SENNOSIDES 2 TAB PO ASDIR PRN NOREPINEPHRINE BITARTRATE 4 MG IV TITRATE ASPIRIN 81 MG PO DAILY clonazePAM 0.5 MG PO BID PRN CYANOCOBALAMIN 500 MCG PO DAILY clonazePAM 0.5 MG PO BID DEXTROSE 50%-WATER 25 ML IV ASDIR PRN GLUCAGON 1 MG IM ASDIR PRN LORazepam 0.5 MG PO Q6H PRN HYDROcodone BITARTRATE/APAP 1 TAB PO Q4H PRN methocarbamoL 250 MG PO Q8H bisacodyL 10 MG RECTAL DAILY PRN SODIUM BICARBONATE 8.4% 50 MEQ IV .ONCE PRN MUPIROCIN 1 APPLIC NASAL BID LABS BLOOD GAS W/ELECTROLYTES (08/18/23 06:12) ARTERIAL BLOOD GAS PH 7.37 ARTERIAL BLOOD GAS PCO2 39.2 ARTERIAL BLOOD GAS PO2 127.6 H BICARBONATE TOTAL HCO3 22.2 BASE EXCESS -2.8 L ABG O2 SATURATION 98.5 ARTERIAL FIO2 32.0 ABG VENT MODE NASAL CANNULA ALLENS TEST NOT APPLICABLE SODIUM (POC) 141 POTASSIUM (POC) 4.33 CHLORIDE (ARTERIAL) 106 GLUCOSE 145 H IONIZED CALCIUM 1.25 POC LACTIC ACID 1.74 TOTAL HGB 11.6 L OXYHEMOGLOBIN 97.9 CARBOXYHEMOGLOBIN 0.3 METHEMOGLOBIN <0.8 HHb 1.5 TCO2 ARTERIAL 23.4 L VENOUS BLOOD GAS (08/18/23 06:06) VENOUS BLOOD GAS PH 7.35 VENOUS BLOOD GAS PCO2 45.2 VENOUS BLOOD GAS PO2 33.5 VBG HCO3 24 VBG BASE EXCESS -1.6 VENOUS BLOOD GAS O2 SAT 62 VENOUS BLOOD GAS TYPE Venous VENOUS BLOOD GAS FIO2 32.0 VBG VENT MODE NC BASIC METABOLIC PANEL (08/18/23 03:16) SODIUM 144 POTASSIUM 4.2 CHLORIDE 112H H CARBON DIOXIDE 19L L GLUCOSE 137H H BLOOD UREA NITROGEN 20 GLOMERULAR FILTRATION RATE >=60 max estimate CREATININE 0.80 CALCIUM 8.4 L CBC W/AUTO DIFF (08/18/23 03:16) WHITE BLOOD CELL 8.4 RED BLOOD CELL 3.59 L HEMOGLOBIN 10.3L L HEMATOCRIT 31.5L L MEAN CELL VOLUME 87.7 MEAN CELL HGB 28.7 MEAN CELL HGB CONCENTRATION 32.7 L RED CELL DISTRIBUTION WIDTH 15.9 PLATELET COUNT 176 MEAN PLATELET VOLUME 10.0 NEUTROPHIL % 77.8 H LYMPHOCYTE % 7.2 L MONOCYTE % 14.5 H EOSINOPHIL % 0.0 BASOPHIL % 0.1 NEUTROPHIL # 6.51 LYMPHOCYTE # 0.60 L MONOCYTE # 1.21 H EOSINOPHIL # 0.00 BASOPHIL # 0.01 MAG (08/18/23 03:16) MAGNESIUM 2.0 PHOS (08/18/23 03:16) PHOSPHOROUS 5.1 PTT (08/18/23 03:16) THROMBOPLASTIN TIME PARTIAL 23.8 D PROTHROMBIN TIME (08/18/23 03:16) PROTHROMBIN TIME PATIENT 12.5 INTERNATIONAL NORMAL RATIO 1.12 H LIVER FUNCTION PANEL (08/18/23 03:16) TOTAL PROTEIN 5.3 L ALBUMIN 3.4 BILIRUBIN TOTAL 0.5 BILIRUBIN DIRECT 0.2 SGOT/AST 52 H SGPT/ALT 14 ALKALINE PHOSPHATASE 61.0 BLOOD GAS W/ELECTROLYTES (08/18/23 03:12) ARTERIAL BLOOD GAS PH 7.36 ARTERIAL BLOOD GAS PCO2 40.0 ARTERIAL BLOOD GAS PO2 148.6 H BICARBONATE TOTAL HCO3 22.2 BASE EXCESS -3.0 L ABG O2 SATURATION 98.8 ARTERIAL FIO2 36.0 ABG VENT MODE NASAL CANNULA ALLENS TEST NOT APPLICABLE SODIUM (POC) 140 POTASSIUM (POC) 4.42 CHLORIDE (ARTERIAL) 105 GLUCOSE 142 H IONIZED CALCIUM 1.26 POC LACTIC ACID 1.46 TOTAL HGB 11.7 L OXYHEMOGLOBIN 98.7 H CARBOXYHEMOGLOBIN 0.1 METHEMOGLOBIN <0.8 HHb 1.2 TCO2 ARTERIAL 23.4 L BASIC METABOLIC PANEL (08/17/23 23:44) SODIUM 143 POTASSIUM 4.4 CHLORIDE 111H H CARBON DIOXIDE 19L L GLUCOSE 146H H BLOOD UREA NITROGEN 20 GLOMERULAR FILTRATION RATE >=60 max estimate CREATININE 0.80 CALCIUM 8.7 PHOS (08/17/23 23:44) PHOSPHOROUS 5.3 H MAG (08/17/23 23:44) MAGNESIUM 2.1 BLOOD GAS W/ELECTROLYTES (08/17/23 21:27) ARTERIAL BLOOD GAS PH 7.36 ARTERIAL BLOOD GAS PCO2 39.2 ARTERIAL BLOOD GAS PO2 145.4 H BICARBONATE TOTAL HCO3 21.6 L BASE EXCESS -3.5 L ABG O2 SATURATION 98.7 ARTERIAL FIO2 36.0 ABG VENT MODE NASAL CANNULA ALLENS TEST NOT APPLICABLE SODIUM (POC) 140 POTASSIUM (POC) 4.38 CHLORIDE (ARTERIAL) 106 GLUCOSE 146 H IONIZED CALCIUM 1.27 POC LACTIC ACID 1.42 TOTAL HGB 11.8 L OXYHEMOGLOBIN 98.4 H CARBOXYHEMOGLOBIN 0.3 METHEMOGLOBIN <0.8 HHb 1.3 TCO2 ARTERIAL 22.9 L BASIC METABOLIC PANEL (08/17/23 18:15) SODIUM 142 POTASSIUM 4.3 CHLORIDE 108H H CARBON DIOXIDE 20 GLUCOSE 149H H BLOOD UREA NITROGEN 23 GLOMERULAR FILTRATION RATE >=60 max estimate CREATININE 0.80 CALCIUM 9.3 MAG (08/17/23 18:15) MAGNESIUM 2.4 PHOS (08/17/23 18:15) PHOSPHOROUS 5.0 -- QUALITY -- -MEDICATIONS- - I attest that the foregoing medication list in the medical record is true, accurate, and complete to the best of my knowledge. -- ATTESTATION -- CARE ACTIVITIES / CARE COORDINATION: - I have reviewed the history and repeated the snyder elements - I have seen and examined this patient - I have reviewed the progress in the clinical course since the last examination - I have discussed the patient's condition with other members of the care team Signed in PatientKeeper by Marianne Mckay MD on 08/18/23 at 22:45 at 2245 ATTENTION *EDITS and/or ADDENDA must be made in Patient Keeper for this note. * * Edits and ammendments created in [employer] are not visible * * in Patient Keeper or the legal medical record ([facility]). * RPT #: [id number] END OF REPORT [facility] 2023-08-18 14:54:00 [facility] ([facility]) Intensive Care Progress Note REPORT #: [id number] REPORT STATUS: Signed DATE: 08/18/23 TIME: 1454 PATIENT: ROCK GOMEZ UNIT #: [id number] ROOM #: P.0307 BED: 1 : 36 AGE: 88 SEX: F ATTEND: Marianne Mckay MD ADM AUTHOR: Seamus Ibarra MD ATTENTION *EDITS and/or ADDENDA must be made in Patient Keeper for this note. * * Edits and ammendments created in [employer] are not visible * * in Patient Keeper or the legal medical record ([facility]). * -- ASSESSMENT AND PLAN -- GENERAL ASSESSMENT: I examined her, reviewed her EMR information and data and discussed her plan of care with supporting clinical and ancillary services. Assessment and Plan NEURO: # ICU Sedation, analgesia H/o Anxiety - Continue with clonazapam as needed. - PRN pain meds - Will reverse when clinically unlabile RESP: # Acute resp insufficiency on MV - Extubated this morning. - Continue with aggressive pulmonary toilet. - continue with nebs. as needed. CV # S/p CABG X 3 as above H/o mv CAD Acute chronotropic incompetence LVH H/o HTN - BP is holding. - Is Pacer dependent: Continue with PPM care for now. - Hold BBlocker. - Follow up on K and Mag Nutrition ADAT RENAL: - good uop, follow Create. - Hold fluids for now. HEm/ID: # Acute blood loss anemia - Appropriate response to PRBCs - Serially reassessing Prophylaxis - SCDs - Pharmacoprophylaxis held 07/30 high risk for bleeding Medications reviewed Critical condition post CABG CCT 40 08/18: discussed with family -- SUBJECTIVE -- HPI: Patient is awake and alert. Following commands Sitting in chair. PAcer dependednt. 2 liters NC -- OBJECTIVE -- VITALS (08/17 14:54 - 08/18 14:54): Temperature F: 96.7 (96.7 - 98.6) Temperature source: Oral Pulse Rate 80 (79 - 80) Respiratory rate: 21 (15 - 47) Blood pressure: 110/54 (101/47 - 140/67) Blood pressure source: Arterial I/Os (08/17 07:00 - 08/18 07:00): Net -433.00 Intake 1,050.00 Output 1,483 -EXAM- GENERAL: Awake and alert. HEAD: Normocephalic, atraumatic. NECK: Rt IJ CVC in place CHEST: Clean median sternotomy incision wound dressing. Adequate excursion on MV. BREAST: Symmetrical without overt abnormalities LUNGS: Transmitted BS bilaterally. No crackles, wheezing HEART: S1 S2 heard, regular, no murmurs or rub ABDOMEN: Not distended, soft, BS sluggish EXTREMITIES: Cool and no edema NEUROLOGICAL: Awake and alert PULSES: Peripheral pulses palpable -- DATA -- MEDICATIONS ACETAMINOPHEN 650 MG RECTAL Q4H PRN polyethylene glycoL 3350 1 PKT PO DAILY CALCIUM GLUC IN NACL, ISO-OSM 2 GM IV ASDIR PRN traMADol HCL 50 MG PO Q6HR LACTULOSE 30 ML PO ASDIR PRN LACTULOSE 30 ML PO ASDIR PRN clopidogreL 75 MG PO DAILY ATORVASTATIN CALCIUM 80 MG PO BEDTIME SODIUM CHLORIDE 10 mL 10 ML IV ASDIR HYOSCYAMINE SULFATE 0.125 MG PO DAILY PRN bisacodyL 10 MG RECTAL ASDIR PRN cloNIDine HCL 0.1 MG PO Q8H PRN DOCUSATE SODIUM 200 MG PO DAILY ACETAMINOPHEN 650 MG PO Q6H PRN ONDANSETRON 4 MG PO Q6H PRN MAGNESIUM HYDROXIDE 30 ML PO ASDIR PRN MONTELUKAST SODIUM 10 MG PO DAILY@1800 ONDANSETRON HCL/PF 4 MG IV Q6H PRN MAGNESIUM 1 GM IV ASDIR PRN FERROUS SULFATE 325 MG PO DAILY ALBUTEROL SULFATE 2.5 MG NEB RTQ6H PRN LACTULOSE 30 ML PO BID PRN ACETAMINOPHEN 650 MG PO Q4H PRN EPINEPHrine HCL/D5W 4 MG IV ASDIR ACETAMINOPHEN 650 MG PO Q6HR niCARdipine HCL with/in SODIUM CHLORIDE 100 mL BAG 25 MG IV TITRATE NITROGLYCERIN 0.4 MG SL Q5M PRN ONDANSETRON HCL/PF 4 MG IV Q6H PRN POTASSIUM CHLORIDE 20 MEQ IV ASDIR (PRN) SENNOSIDES 2 TAB PO ASDIR PRN NOREPINEPHRINE BITARTRATE 4 MG IV TITRATE ASPIRIN 81 MG PO DAILY clonazePAM 0.5 MG PO BID PRN CYANOCOBALAMIN 500 MCG PO DAILY clonazePAM 0.5 MG PO BID DEXTROSE 50%-WATER 25 ML IV ASDIR PRN GLUCAGON 1 MG IM ASDIR PRN LORazepam 0.5 MG PO Q6H PRN HYDROcodone BITARTRATE/APAP 1 TAB PO Q4H PRN methocarbamoL 250 MG PO Q8H bisacodyL 10 MG RECTAL DAILY PRN SODIUM BICARBONATE 8.4% 50 MEQ IV .ONCE PRN MUPIROCIN 1 APPLIC NASAL BID LABS BLOOD GAS W/ELECTROLYTES (08/18/23 06:12) ARTERIAL BLOOD GAS PH 7.37 ARTERIAL BLOOD GAS PCO2 39.2 ARTERIAL BLOOD GAS PO2 127.6 H BICARBONATE TOTAL HCO3 22.2 BASE EXCESS -2.8 L ABG O2 SATURATION 98.5 ARTERIAL FIO2 32.0 ABG VENT MODE NASAL CANNULA ALLENS TEST NOT APPLICABLE SODIUM (POC) 141 POTASSIUM (POC) 4.33 CHLORIDE (ARTERIAL) 106 GLUCOSE 145 H IONIZED CALCIUM 1.25 POC LACTIC ACID 1.74 TOTAL HGB 11.6 L OXYHEMOGLOBIN 97.9 CARBOXYHEMOGLOBIN 0.3 METHEMOGLOBIN <0.8 HHb 1.5 TCO2 ARTERIAL 23.4 L VENOUS BLOOD GAS (08/18/23 06:06) VENOUS BLOOD GAS PH 7.35 VENOUS BLOOD GAS PCO2 45.2 VENOUS BLOOD GAS PO2 33.5 VBG HCO3 24 VBG BASE EXCESS -1.6 VENOUS BLOOD GAS O2 SAT 62 VENOUS BLOOD GAS TYPE Venous VENOUS BLOOD GAS FIO2 32.0 VBG VENT MODE NC BASIC METABOLIC PANEL (08/18/23 03:16) SODIUM 144 POTASSIUM 4.2 CHLORIDE 112H H CARBON DIOXIDE 19L L GLUCOSE 137H H BLOOD UREA NITROGEN 20 GLOMERULAR FILTRATION RATE >=60 max estimate CREATININE 0.80 CALCIUM 8.4 L CBC W/AUTO DIFF (08/18/23 03:16) WHITE BLOOD CELL 8.4 RED BLOOD CELL 3.59 L HEMOGLOBIN 10.3L L HEMATOCRIT 31.5L L MEAN CELL VOLUME 87.7 MEAN CELL HGB 28.7 MEAN CELL HGB CONCENTRATION 32.7 L RED CELL DISTRIBUTION WIDTH 15.9 PLATELET COUNT 176 MEAN PLATELET VOLUME 10.0 NEUTROPHIL % 77.8 H LYMPHOCYTE % 7.2 L MONOCYTE % 14.5 H EOSINOPHIL % 0.0 BASOPHIL % 0.1 NEUTROPHIL # 6.51 LYMPHOCYTE # 0.60 L MONOCYTE # 1.21 H EOSINOPHIL # 0.00 BASOPHIL # 0.01 MAG (08/18/23 03:16) MAGNESIUM 2.0 PHOS (08/18/23 03:16) PHOSPHOROUS 5.1 PTT (08/18/23 03:16) THROMBOPLASTIN TIME PARTIAL 23.8 D PROTHROMBIN TIME (08/18/23 03:16) PROTHROMBIN TIME PATIENT 12.5 INTERNATIONAL NORMAL RATIO 1.12 H LIVER FUNCTION PANEL (08/18/23 03:16) TOTAL PROTEIN 5.3 L ALBUMIN 3.4 BILIRUBIN TOTAL 0.5 BILIRUBIN DIRECT 0.2 SGOT/AST 52 H SGPT/ALT 14 ALKALINE PHOSPHATASE 61.0 BLOOD GAS W/ELECTROLYTES (08/18/23 03:12) ARTERIAL BLOOD GAS PH 7.36 ARTERIAL BLOOD GAS PCO2 40.0 ARTERIAL BLOOD GAS PO2 148.6 H BICARBONATE TOTAL HCO3 22.2 BASE EXCESS -3.0 L ABG O2 SATURATION 98.8 ARTERIAL FIO2 36.0 ABG VENT MODE NASAL CANNULA ALLENS TEST NOT APPLICABLE SODIUM (POC) 140 POTASSIUM (POC) 4.42 CHLORIDE (ARTERIAL) 105 GLUCOSE 142 H IONIZED CALCIUM 1.26 POC LACTIC ACID 1.46 TOTAL HGB 11.7 L OXYHEMOGLOBIN 98.7 H CARBOXYHEMOGLOBIN 0.1 METHEMOGLOBIN <0.8 HHb 1.2 TCO2 ARTERIAL 23.4 L BASIC METABOLIC PANEL (08/17/23 23:44) SODIUM 143 POTASSIUM 4.4 CHLORIDE 111H H CARBON DIOXIDE 19L L GLUCOSE 146H H BLOOD UREA NITROGEN 20 GLOMERULAR FILTRATION RATE >=60 max estimate CREATININE 0.80 CALCIUM 8.7 PHOS (08/17/23 23:44) PHOSPHOROUS 5.3 H MAG (08/17/23 23:44) MAGNESIUM 2.1 BLOOD GAS W/ELECTROLYTES (08/17/23 21:27) ARTERIAL BLOOD GAS PH 7.36 ARTERIAL BLOOD GAS PCO2 39.2 ARTERIAL BLOOD GAS PO2 145.4 H BICARBONATE TOTAL HCO3 21.6 L BASE EXCESS -3.5 L ABG O2 SATURATION 98.7 ARTERIAL FIO2 36.0 ABG VENT MODE NASAL CANNULA ALLENS TEST NOT APPLICABLE SODIUM (POC) 140 POTASSIUM (POC) 4.38 CHLORIDE (ARTERIAL) 106 GLUCOSE 146 H IONIZED CALCIUM 1.27 POC LACTIC ACID 1.42 TOTAL HGB 11.8 L OXYHEMOGLOBIN 98.4 H CARBOXYHEMOGLOBIN 0.3 METHEMOGLOBIN <0.8 HHb 1.3 TCO2 ARTERIAL 22.9 L BASIC METABOLIC PANEL (08/17/23 18:15) SODIUM 142 POTASSIUM 4.3 CHLORIDE 108H H CARBON DIOXIDE 20 GLUCOSE 149H H BLOOD UREA NITROGEN 23 GLOMERULAR FILTRATION RATE >=60 max estimate CREATININE 0.80 CALCIUM 9.3 MAG (08/17/23 18:15) MAGNESIUM 2.4 PHOS (08/17/23 18:15) PHOSPHOROUS 5.0 Signed in PatientKeeper by Seamus Ibarra MD on 08/18/23 at 15:03 at 1503 ATTENTION *EDITS and/or ADDENDA must be made in Patient Keeper for this note. * * Edits and ammendments created in [employer] are not visible * * in Patient Keeper or the legal medical record ([facility]). * RPT #: [id number] END OF REPORT [facility] 2023-08-18 07:27:00 [facility] ([facility]) Cardiology Progress Notes REPORT #: [id number] REPORT STATUS: Signed DATE: 08/18/23 TIME: 726 PATIENT: ROCK GOMEZ UNIT #: [id number] ROOM #: [id number] BED: A : 36 AGE: 88 SEX: F ATTEND: Marianne Mckay MD [facility] AUTHOR: Lisa Wing DO [facility] ATTENTION *EDITS and/or ADDENDA must be made in Patient Keeper for this note. * * Edits and ammendments created in [employer] are not visible * * in Patient Keeper or the legal medical record ([facility]). * -- CO-SIGNATURE -- COMMENTS: I have seen and examined the patient with the medical clinic manager fellow Dr. Lisa Wing MD on 08/18/2023. I have reviewed all the clinical information, lab investigations, and imaging data. I agree with the following examination, findings, assessment and plan. I was present and supervised. Signed in PatientKeeper by YUE GARZA MD on 09/01/23 at 08:56 -- ASSESSMENT AND PLAN -- HOSPITAL COURSE TO DATE: - 08/11 NSTEMI, downgraded to IMU --- - 08/17 s/p [id number] (SCHWARTZ to LAD, SVG to OM1, SVG to PDA, 08/17/2023, Dr. Montiel); postop CHB - 08/18 TPW placement, consider EP consult GENERAL ASSESSMENT: The patient is an 88-year-old female (patient of Dr. Gianna Ambrose) has a PMHx of coronary artery disease (s/p PCI with 3 ALEC), family history of coronary artery disease, carotid artery disease, hypertension, hyperlipidemia, h/o nicotine use, asthma, chronic bronchitis, anxiety. She has been having chest pressure radiating to her jaw and shortness of breath for the past 3 weeks. She was evaluated by her medical clinic manager, had stress test on 07/28/2023 what was abnormal, showed cardiomyopathy, an EF of 34%, severe inferolateral, posterolateral ischemia. Echocardiogram (06/2023) showed an EF 55-60%, moderate MR. She had coronary angiogram on 07/31/23 and showed three vessel coronary artery disease, torturous aorta with small abdominal aortic aneurysm. elevated LVEDP that is not amenable for PCI. She was evaluated by CV surgery, Dr. Montiel, for CABG. She presented at an outside hospital with complaint of chest pain radiating to her left jaw, diaphoresis and she was ruled in NSTEMI. She was transferred [facility] to [facility] for higher level of care. Chest x-ray showed interstitial and basilar airspace edema/infiltrates, cardiomegaly. Blood work showed troponin of 534.3, BNP 539, Mg 1.3. She denies chest pain, shortness of breath, palpitations now. Cardiology consulted for MVCAD. CT surgery planning CABG 08/17. PROBLEMS: 1: NSTEMI (non-ST elevated myocardial infarction) A/P: - TTE 08/09/2023 LVEF 40-44%, moderate MR - CT chest w/o contrast showed RUL PNA, Right pleural effusion, Plate-like atelectasis in the lower lobes. - On aspirin 81mg qd, clopidogrel 75mg qd, atorvastatin 80mg qd, and metoprolol XL 25mg BID - off heparin - s/p [id number] (SCHWARTZ to LAD, SVG to OM1, SVG to PDA, 08/17/2023, Dr. Montiel) - chest tube management per CT surgery - PT/OT/IS - cont to monitor and replete electrolytes 2: CAD (coronary artery disease) A/P: - s/p PCI 2011 - s/p [id number] (SCHWARTZ to LAD, SVG to OM1, SVG to PDA, 08/17/2023, Dr. Montiel) - On aspirin 81mg qd, clopidogrel 75mg qd, atorvastatin 80mg qd, and metoprolol XL 25mg BID - monitor on tele 3: Complete heart block, post-surgical A/P: - possible myocardial stunning postop - monitor on tele - TPW placement concern - consider EP consult -- SUBJECTIVE -- CHIEF COMPLAINT: AMELIA this AM. s/p CABG. Extubated. Tele: V paced 80bpm -REVIEW OF SYSTEMS- COMMENT: 10 point ROS negative unless noted. -- OBJECTIVE -- VITALS (08/17 07:27 - 08/18 07:27): Temperature F: 98.6 (97.2 - 98.6) Temperature source: Axillary Pulse Rate 80 (75 - 80) Respiratory rate: 24 (15 - 47) Blood pressure: 108/52 (93/52 - 140/67) Blood pressure source: Arterial I/Os (08/17 07:00 - 08/18 07:00): Net -433.00 Intake 1,050.00 Output 1,483 -EXAM- GENERAL: Well developed, well nourished, in no apparent distress. MOUTH: Oropharynx without deformities or lesions, normal mucosa. CHEST: sternotomy site dressing c/d/i; chest tubes in place, + TPW LUNGS: Clear bilaterally with normal respiratory effort. HEART: Regular rate and rhythm, normal S1, S2, no murmurs ABDOMEN: Soft, non-tender EXTREMITIES: No clubbing, no cyanosis, no edema. NEUROLOGICAL: No focal deficits, cranial nerves II-XII grossly intact PULSES: Pulses normal in all extremities. SKIN: Intact without significant lesions, or rashes. PSYCHIATRIC: Alert and oriented to time, person, place. Normal mood and affect, intact judgment and insight. -- DATA -- MEDICATIONS ACETAMINOPHEN 650 MG RECTAL Q4H PRN polyethylene glycoL 3350 1 PKT PO DAILY DOCUSATE SODIUM 200 MG PO DAILY CALCIUM GLUC IN NACL, ISO-OSM 2 GM IV ASDIR PRN traMADol HCL 50 MG PO Q6HR LACTULOSE 30 ML PO ASDIR PRN ACETAMINOPHEN 1000 MG IV Q8H LACTULOSE 30 ML PO ASDIR PRN clopidogreL 75 MG PO DAILY ATORVASTATIN CALCIUM 80 MG PO BEDTIME SODIUM CHLORIDE 10 mL 10 ML IV ASDIR HYOSCYAMINE SULFATE 0.125 MG PO DAILY PRN bisacodyL 10 MG RECTAL ASDIR PRN cloNIDine HCL 0.1 MG PO Q8H PRN ACETAMINOPHEN 650 MG PO Q6H PRN ONDANSETRON 4 MG PO Q6H PRN morphine SULFATE 2 MG IV Q6H PRN MAGNESIUM HYDROXIDE 30 ML PO ASDIR PRN MONTELUKAST SODIUM 10 MG PO DAILY@1800 ONDANSETRON HCL/PF 4 MG IV Q6H PRN MAGNESIUM 1 GM IV ASDIR PRN FERROUS SULFATE 325 MG PO DAILY ALBUTEROL SULFATE 2.5 MG NEB RTQ6H PRN LACTULOSE 30 ML PO BID PRN ACETAMINOPHEN 650 MG PO Q4H PRN EPINEPHrine HCL/D5W 4 MG IV ASDIR ACETAMINOPHEN 650 MG PO Q6HR niCARdipine HCL with/in SODIUM CHLORIDE 100 mL BAG 25 MG IV TITRATE NITROGLYCERIN 0.4 MG SL Q5M PRN ONDANSETRON HCL/PF 4 MG IV Q6H PRN POTASSIUM CHLORIDE 20 MEQ IV ASDIR (PRN) SENNOSIDES 2 TAB PO ASDIR PRN NOREPINEPHRINE BITARTRATE 4 MG IV TITRATE CYANOCOBALAMIN 500 MCG PO DAILY DEXTROSE 50%-WATER 25 ML IV ASDIR PRN GLUCAGON 1 MG IM ASDIR PRN LORazepam 0.5 MG PO Q6H PRN HYDROcodone BITARTRATE/APAP 1 TAB PO Q4H PRN (Held) clonazePAM 0.5 MG PO BID methocarbamoL 250 MG PO Q8H bisacodyL 10 MG RECTAL DAILY PRN SODIUM BICARBONATE 8.4% 50 MEQ IV .ONCE PRN ASPIRIN 81 MG PO DAILY MUPIROCIN 1 APPLIC NASAL BID LABS BLOOD GAS W/ELECTROLYTES (08/18/23 06:12) ARTERIAL BLOOD GAS PH 7.37 ARTERIAL BLOOD GAS PCO2 39.2 ARTERIAL BLOOD GAS PO2 127.6 H BICARBONATE TOTAL HCO3 22.2 BASE EXCESS -2.8 L ABG O2 SATURATION 98.5 ARTERIAL FIO2 32.0 ABG VENT MODE NASAL CANNULA ALLENS TEST NOT APPLICABLE SODIUM (POC) 141 POTASSIUM (POC) 4.33 CHLORIDE (ARTERIAL) 106 GLUCOSE 145 H IONIZED CALCIUM 1.25 POC LACTIC ACID 1.74 TOTAL HGB 11.6 L OXYHEMOGLOBIN 97.9 CARBOXYHEMOGLOBIN 0.3 METHEMOGLOBIN <0.8 HHb 1.5 TCO2 ARTERIAL 23.4 L VENOUS BLOOD GAS (08/18/23 06:06) VENOUS BLOOD GAS PH 7.35 VENOUS BLOOD GAS PCO2 45.2 VENOUS BLOOD GAS PO2 33.5 VBG HCO3 24 VBG BASE EXCESS -1.6 VENOUS BLOOD GAS O2 SAT 62 VENOUS BLOOD GAS TYPE Venous VENOUS BLOOD GAS FIO2 32.0 VBG VENT MODE NC PTT (08/18/23 03:16) THROMBOPLASTIN TIME PARTIAL 23.8 D PROTHROMBIN TIME (08/18/23 03:16) PROTHROMBIN TIME PATIENT 12.5 INTERNATIONAL NORMAL RATIO 1.12 H LIVER FUNCTION PANEL (08/18/23 03:16) TOTAL PROTEIN 5.3 L ALBUMIN 3.4 BILIRUBIN TOTAL 0.5 BILIRUBIN DIRECT 0.2 SGOT/AST 52 H SGPT/ALT 14 ALKALINE PHOSPHATASE 61.0 BASIC METABOLIC PANEL (08/18/23 03:16) SODIUM 144 POTASSIUM 4.2 CHLORIDE 112H H CARBON DIOXIDE 19L L GLUCOSE 137H H BLOOD UREA NITROGEN 20 GLOMERULAR FILTRATION RATE >=60 max estimate CREATININE 0.80 CALCIUM 8.4 L CBC W/AUTO DIFF (08/18/23 03:16) WHITE BLOOD CELL 8.4 RED BLOOD CELL 3.59 L HEMOGLOBIN 10.3L L HEMATOCRIT 31.5L L MEAN CELL VOLUME 87.7 MEAN CELL HGB 28.7 MEAN CELL HGB CONCENTRATION 32.7 L RED CELL DISTRIBUTION WIDTH 15.9 PLATELET COUNT 176 MEAN PLATELET VOLUME 10.0 NEUTROPHIL % 77.8 H LYMPHOCYTE % 7.2 L MONOCYTE % 14.5 H EOSINOPHIL % 0.0 BASOPHIL % 0.1 NEUTROPHIL # 6.51 LYMPHOCYTE # 0.60 L MONOCYTE # 1.21 H EOSINOPHIL # 0.00 BASOPHIL # 0.01 MAG (08/18/23 03:16) MAGNESIUM 2.0 PHOS (08/18/23 03:16) PHOSPHOROUS 5.1 BLOOD GAS W/ELECTROLYTES (08/18/23 03:12) ARTERIAL BLOOD GAS PH 7.36 ARTERIAL BLOOD GAS PCO2 40.0 ARTERIAL BLOOD GAS PO2 148.6 H BICARBONATE TOTAL HCO3 22.2 BASE EXCESS -3.0 L ABG O2 SATURATION 98.8 ARTERIAL FIO2 36.0 ABG VENT MODE NASAL CANNULA ALLENS TEST NOT APPLICABLE SODIUM (POC) 140 POTASSIUM (POC) 4.42 CHLORIDE (ARTERIAL) 105 GLUCOSE 142 H IONIZED CALCIUM 1.26 POC LACTIC ACID 1.46 TOTAL HGB 11.7 L OXYHEMOGLOBIN 98.7 H CARBOXYHEMOGLOBIN 0.1 METHEMOGLOBIN <0.8 HHb 1.2 TCO2 ARTERIAL 23.4 L MAG (08/17/23 23:44) MAGNESIUM 2.1 BASIC METABOLIC PANEL (08/17/23 23:44) SODIUM 143 POTASSIUM 4.4 CHLORIDE 111H H CARBON DIOXIDE 19L L GLUCOSE 146H H BLOOD UREA NITROGEN 20 GLOMERULAR FILTRATION RATE >=60 max estimate CREATININE 0.80 CALCIUM 8.7 PHOS (08/17/23 23:44) PHOSPHOROUS 5.3 H BLOOD GAS W/ELECTROLYTES (08/17/23 21:27) ARTERIAL BLOOD GAS PH 7.36 ARTERIAL BLOOD GAS PCO2 39.2 ARTERIAL BLOOD GAS PO2 145.4 H BICARBONATE TOTAL HCO3 21.6 L BASE EXCESS -3.5 L ABG O2 SATURATION 98.7 ARTERIAL FIO2 36.0 ABG VENT MODE NASAL CANNULA ALLENS TEST NOT APPLICABLE SODIUM (POC) 140 POTASSIUM (POC) 4.38 CHLORIDE (ARTERIAL) 106 GLUCOSE 146 H IONIZED CALCIUM 1.27 POC LACTIC ACID 1.42 TOTAL HGB 11.8 L OXYHEMOGLOBIN 98.4 H CARBOXYHEMOGLOBIN 0.3 METHEMOGLOBIN <0.8 HHb 1.3 TCO2 ARTERIAL 22.9 L BASIC METABOLIC PANEL (08/17/23 18:15) SODIUM 142 POTASSIUM 4.3 CHLORIDE 108H H CARBON DIOXIDE 20 GLUCOSE 149H H BLOOD UREA NITROGEN 23 GLOMERULAR FILTRATION RATE >=60 max estimate CREATININE 0.80 CALCIUM 9.3 MAG (08/17/23 18:15) MAGNESIUM 2.4 PHOS (08/17/23 18:15) PHOSPHOROUS 5.0 VENOUS BLOOD GAS (08/17/23 14:01) VENOUS BLOOD GAS PH 7.29 L VENOUS BLOOD GAS PCO2 44.8 VENOUS BLOOD GAS PO2 38.6 VBG HCO3 21 VBG BASE EXCESS -5.2 VENOUS BLOOD GAS O2 SAT 68 VENOUS BLOOD GAS TYPE Venous VENOUS BLOOD GAS FIO2 40.0 VBG VENT MODE Ventilator PROTHROMBIN TIME (08/17/23 13:29) PROTHROMBIN TIME PATIENT 14.3 H INTERNATIONAL NORMAL RATIO 1.29 H BASIC METABOLIC PANEL (08/17/23 13:29) SODIUM 143D D POTASSIUM 4.3 CHLORIDE 112D H D H CARBON DIOXIDE 19L L GLUCOSE 141H H BLOOD UREA NITROGEN 22 GLOMERULAR FILTRATION RATE >=60 max estimate CREATININE 0.70 CALCIUM 9.7 LACTIC ACID (08/17/23 13:29) LACTIC ACID 0.80 MAG (08/17/23 13:29) MAGNESIUM 2.9 H CBC W/AUTO DIFF (08/17/23 13:29) WHITE BLOOD CELL 10.8 RED BLOOD CELL 3.84 L HEMOGLOBIN 11.0L L HEMATOCRIT 33.6L L MEAN CELL VOLUME 87.5 MEAN CELL HGB 28.6 MEAN CELL HGB CONCENTRATION 32.7 L RED CELL DISTRIBUTION WIDTH 14.7 PLATELET COUNT 139L L MEAN PLATELET VOLUME 9.3 NEUTROPHIL % 78.5 H LYMPHOCYTE % 10.9 L MONOCYTE % 8.8 EOSINOPHIL % 0.7 BASOPHIL % 0.4 NEUTROPHIL # 8.46 H LYMPHOCYTE # 1.18 MONOCYTE # 0.95 H EOSINOPHIL # 0.08 BASOPHIL # 0.04 PTT (08/17/23 13:29) THROMBOPLASTIN TIME PARTIAL 30.7 D PHOS (08/17/23 13:29) PHOSPHOROUS 4.3 ACT (08/17/23 12:33) COAGULATION TIME ACTIVATED 136 ACT (08/17/23 11:54) COAGULATION TIME ACTIVATED 515 H ACT (08/17/23 11:21) COAGULATION TIME ACTIVATED 580 H ACT (08/17/23 10:52) COAGULATION TIME ACTIVATED 590 H ACT (08/17/23 10:25) COAGULATION TIME ACTIVATED 585 H Signed in PatientKeeper by LISA WING on 08/18/23 at 15:17 Cosigned by YUE GARZA MD on 09/01/23 at 08:56 at 0856 at 0856 ATTENTION *EDITS and/or ADDENDA must be made in Patient Keeper for this note. * * Edits and ammendments created in [employer] are not visible * * in Patient Keeper or the legal medical record ([facility]). * RPT #: [id number] END OF REPORT [facility] 2023-08-18 02:52:00 [id number] [place] [address] PATIENT NAME: ROCK GOMEZ ADMIT DATE: 08/09/23 ACCOUNT NO: [id number] ROOM NO: [id number] AGE: 88 REPORT TYPE: eELECTROCARDIOGRAM SEX: F ADMITTING PHYSICIAN: Mairanne Mckay MD ATTENDING PHYSICIAN: Marianne Mckay MD Order: [id number] Test Reason : Cardiac Surgery Postop Test Date/Time Stamp: WedAug 18 2023 02:52:08 Blood Pressure : / mmHG Vent. Rate : 081 BPM Atrial Rate : 094 BPM P-R Int : 000 ms QRS Dur : 146 ms QT Int : 472 ms P-R-T Axes : 058 -77 116 degrees QTc Int : 548 ms Sinus rhythm with complete heart block and Ventricular-paced rhythm Abnormal ECG When compared with ECG of 13-AUG-2023 13:01, (Unconfirmed) Electronic ventricular pacemaker has replaced Sinus rhythm Vent. rate has decreased BY 41 BPM Confirmed by DIYA COURTNEY ([id number]) on 08/18/2023 2:56:13 PM Referred By: Self Referred Confirmed by:DIYA COURTNEY at 1450 PATIENT NAME: ROCK GOMEZ [facility] 2023-08-17 19:00:00 [facility] ([facility]) Operative Report REPORT #: [id number] REPORT STATUS: Signed DATE: 08/17/23 TIME: 1900 PATIENT: ROCK GOMEZ UNIT #: [id number] ROOM #: [facility] [place] BED: 1 : 36 AGE: 88 SEX: F ATTEND: Marianne Mckay MD ADM AUTHOR: King Montiel MD ATTENTION *EDITS and/or ADDENDA must be made in Patient Keeper for this note. * * Edits and ammendments created in [employer] are not visible * * in Patient Keeper or the legal medical record ([facility]). * -- OPERATION -- SURGERY START DATE/TIME: 2023-08-17 08:43 PRE-OPERATIVE DIAGNOSIS: See Full Summary POST-OPERATIVE DIAGNOSIS: See Full Summary INDICATION(S): See Full Summary NAME OF PROCEDURE: See Full Summary TIME OUT COMPLETED: Yes SURGEON: King Montiel MD COMMERCIAL ILLUSTRATOR(S): See Full Summary ANESTHESIA: See Full Summary ESTIMATED BLOOD LOSS: 500 ml's FINDINGS: See Full Summary SPECIMEN(S) REMOVED AND/OR ALTERED: See Full Summary COMPLICATION(S): See Full Summary -- DESCRIPTION -- DESCRIPTION OF TECHNIQUE/PROCEDURE: SURGEON 1ST COMMERCIAL ILLUSTRATOR 2ND COMMERCIAL ILLUSTRATOR DATE OFOPERATION Jennifer Henderson P.A. Seth Shippy, P.AJohn 08/17/2023 PREOPERATIVE DIAGNOSIS: 1. Severe unstable angina 2. Severe multivessel coronary artery disease 3. S/p PCI x3 - 2011 4. Mild left-ventricular dysfunction (LVEF 34 %) 5. Hypertension 6. Hyperlipidemia 7. Osteoarthritis 8. Bronchial asthma POSTOPERATIVE DIAGNOSIS: Same OPERATION: 1. Urgent CABG X 3 using cardiopulmonary bypass Left internal mammary artery bypass to the left anterior descending coronary artery Reversed saphenous vein graft to the first Obtuse marginal coronary artery Reversed saphenous vein graft to the posterior descending coronary artery 2. Cold blood cardioplegic arrest 3. Endoscopic vein harvesting 4. Insertion of temporary epicardial pacing wires AORTIC CLAMP TIME: 80 minutes TOTAL PUMP TIME: 94 minutes LOWEST NASOPHARYNGEAL TEMP: 33.2 C LOWEST BLADDER TEMP: 33.5 C BLOOD REQUIREMENTS: 2 units of packed red blood cells, and 2 units of Cell Saver PROCEDURE: Ms. Gomez is a most pleasant 88-year-old female with known coronary artery disease. In 2012, she was diagnosed with multivessel coronary artery disease and underwent PCI x 3. Recently she has been complaining of chest discomfort worsening with exertion. Nuclear stress test was abnormal. At that point her left ventricular systolic function was found to be reduced (LVEF 34%). C demonstrated severe multivessel coronary artery disease not amenable for PCI. Ms. Gomez was initially evaluated for an elective CABG, but as she complained of severe chest pain and was admitted to [facility] CVICU. The indication for surgery was as well as the risks and benefits of the operation were discussed in detail with the patient and her family, and informed consent was obtained. The patient was taken to the operating room, placed in the supine position and administered satisfactory general endotracheal anesthesia. A time-out procedure was performed, confirming the patient's name, MRN, and procedure to be performed. Transesophageal echocardiogram demonstrated reduced left ventricular function (LVEF 35-40%). These findings correlate with preoperative transthoracic echocardiogram. Next, chest, abdomen and legs were prepped and draped in the usual sterile manner. The chest was entered through a median sternotomy. The left pleura was entered, and the left internal mammary artery was dissected in a skeletonized fashion by using the cautery starting from the 6th intercostal space going proximally to the first rib. The branches were ligated with hemoclips and divided. The artery was found to be of normal diameter and demonstrated good flow. Then, the left internal mammary artery was placed and soaked with Papaverine solution. Simultaneously, the greater saphenous vein was harvested from both thighs as the vein was of poor quality and small diameter. At that point, the pericardium was opened longitudinally. The heart demonstrated good global function. The patient was anti-coagulated with sodium heparin, and the heart was cannulated for cardiopulmonary bypass with placement of a 20Fr arterial cannula in the distal ascending aorta and a dual stage cannula in the right atrium. Cardiopulmonary bypass was established, and the patient was allowed to drift to the above stated temperature. An antegrade cardioplegia cannula was inserted into the ascending aorta and secured, following which the ascending aorta was cross-clamped. Cold blood cardioplegic solution was instilled into the ascending aorta establishing a diastolic arrest. Cold cardioplegia was repeated at 15-minute intervals, keeping the heart isoelectric. At that point, attention was given to the first obtuse marginal coronary artery. The vessel was noted to be heavily calcified. It was opened longitudinally at a distal segment, and was found to be suitable for bypass admitting a 1.0mm dilator. A saphenous vein segment was then fashioned end-to-side to the arteriotomy made in this vessel and the anastomosis was completed using a running # 7/0 Prolene suture. Next, the right coronary artery was identified. The vessel was heavily calcified as was demonstrated on the [facility]. The right posterior descending coronary artery was identified and opened longitudinally. It was found to be small, yet suitable for bypass admitting a 1.0 mm dilator. A second saphenous vein segment was then fashioned end-to-side to the arteriotomy made in this vessel and the anastomosis was completed using a running # 8/0 Prolene suture. With the completion of this distal anastomosis, the left anterior descending coronary artery was identified. The vessel was opened longitudinally at its distal segment, and was noted to be suitable for bypass admitting a 1.0 mm dilator. The left internal mammary artery was then fashioned end-to side to the arteriotomy made in the left anterior descending coronary artery, and the anastomosis was completed using a running # 8/0 Prolene suture. Two small aortotomies were made in the ascending aorta, to which the saphenous vein grafts to the first obtuse marginal and posterior descending coronary arteries were sutured in an end-to-side fashion using running # 7/0 Prolene sutures. The heart chambers were filled with blood. Any potential air was evacuated via the antegrade aortic cardioplegia cannula. The patient was placed in the head-down position and the aortic cross-clamp released. The heart was defibrillated to third degree AV block. Temporary epicardial pacemaker wires were placed on the right ventricular outflow tract, and the patient was paced. Rewarming continued to a nasopharyngeal and bladder temperature of 36.0 C. After demonstrating satisfactory hemodynamics, the patient was uneventfully weaned from cardiopulmonary bypass. Flow was assessed in all bypass grafts and was found to be excellent with low PI. Transesophageal echocardiogram demonstrated good left ventricular systolic function with no wall-motion abnormalities. The aortic and vena caval cannulae were removed. Protamine sulfate was administered to reverse the anti-coagulated state. One # 36 chest tube was placed in the mediastinum, and one # 28 right angle chest tube was placed in the left pleural space for drainage. The chest was closed with interrupted # 5 stainless steel surgical wires on the sternum, running #l Vicryl Plus on the muscular fascia and running # 3/0 Monocryl suture for the skin. The patient tolerated the procedure well and was taken to the ICU in stable condition. Sponge, needle and instrument x4 were correct. I was present as surgeon for all elements of this operation that included opening the chest, harvesting the left internal mammary artery, establishing cardiopulmonary bypass and performing all distal and proximal anastomoses of the coronary arteries, including the left internal mammary artery to the left anterior descending coronary artery. I weaned the patient from cardiopulmonary bypass and closed the incision. Due to the complexity of this surgery, a surgical aides teacher was necessary. Frances Aguilar PA-C was present and scrubbed for the entirety of the case.Frances was essential for the proper positioning, manipulation of instruments, maintenance/exposure of a clear surgical field.She helped initiating/weaning from cardiopulmonary bypass and completion of all anastomoses as described above. This operation could not have been safely performed (without compromising the technical results or length of the procedure) without the assistance of a skilled operating room surgical technologist. King Montiel M.D. Signed in PatientKeeper by King Montiel MD on 08/18/23 at 07:47 at 0747 ATTENTION *EDITS and/or ADDENDA must be made in Patient Keeper for this note. * * Edits and ammendments created in [employer] are not visible * * in Patient Keeper or the legal medical record (HPF). * RPT #: [id number] END OF REPORT [facility] 2023-08-17 17:55:00 [facility] ([facility]) Hospitalist Progress Note REPORT #: [id number] REPORT STATUS: Signed DATE: 08/17/23 TIME: 1754 PATIENT: ROCK GOMEZ UNIT #: [id number] ROOM #: P.0307 BED: 1 : 36 AGE: 88 SEX: F ATTEND: Marianne Mckay MD ADM AUTHOR: Marianne Mckay MD ATTENTION *EDITS and/or ADDENDA must be made in Patient Keeper for this note. * * Edits and ammendments created in [employer] are not visible * * in Patient Keeper or the legal medical record (HPF). * -- ASSESSMENT AND PLAN -- GENERAL ASSESSMENT: ASSESSMENT AND PLAN: 1. Non-ST segment elevation myocardial infarction in a patient with a known history of severe multivessel coronary artery disease including proximal 80% LAD, 90% ostial and proximal circumflex and distal RCA with stent occlusion, preserved left ventricular ejection fraction on angiogram. The patient has recently been evaluated by Dr. King Montiel of Cardiothoracic Surgery services for consideration of coronary artery bypass and grafting. We will continue aspirin, heparin, beta blockers, statins and nitroglycerin. The patient underwent 3V CABG, SCHWARTZ to LAD, saphenous vein graft to the obtuse marginal and saphenous vein graft to the posterior descending artery by Dr King Montiel 08/17/20. EBL 750 cc. Received 2 units of PRBC and 2 Cell Saver. Urine output is good. [address] extubated POD 0 2. Pulmonary edema, related to decompensated diastolic congestive cardiac failure. Cautious use of diuretics. 3. Hypertension. Continue metoprolol and losartan. 4. Hyperlipidemia. Total cholesterol 226, HDL 90, LDL 139, triglycerides 121. Continue atorvastatin 80 mg daily. 5. Hypomagnesemia, replete. 6. Asthma. Continue montelukast. 7. Anxiety, not otherwise specified. Continue lorazepam. 8. Acute exacerbation of likely diastolic congestive heart failure. Diurese as above. 9. Osteoarthritis, avoid nonsteroidals. 10. Chronic kidney disease, stage II. 11. Hypokalemia, replete ADDITIONAL COMMENTS: The patient underwent 3V CABG, SCHWARTZ to LAD, saphenous vein graft to the obtuse marginal and saphenous vein graft to the posterior descending artery by Dr King Montiel 08/17/20. extubated 08/17. -- SUBJECTIVE -- HPI: This 88-year-old female, a patient of Dr. Gianna Ambrose, has a past medical history significant for hypertension, hyperlipidemia, asthma, anxiety, chronic bronchitis, and coronary artery disease, status post angioplasty in 2011. A few weeks ago, the patient developed new onset of jaw pain and dyspnea, and noninvasive cardiac workup by Dr. Ambrose including a nuclear stress test showed an ejection fraction of 34% with severe inferolateral and posterolateral ischemia, a change from a previously normal ejection fraction of 55% to 60% in 06/2023. Subsequent coronary angiogram on 07/31/2023 showed severe multivessel coronary artery disease including 80% proximal LAD, 90% ostial and proximal circumflex, heavily calcified RCA with a distal occluded stent, and an ejection fraction during the heart catheterization to be 55%, elevated left ventricular end diastolic pressure at 33. The patient was evaluated by Dr. King Montiel of Cardiothoracic Surgery services on 08/06 and discussions were underway as regards to possible bypass surgery. Since that time, the patient has had increased anxiety about the possibility of undergoing bypass surgery and has not been able to sleep or rest well. On the morning of admission, she developed central chest pressure with radiation to the jaw and worsening shortness of breath. She presented to the [facility] in [place], [place], where troponin was elevated to 300 range and EKG was negative for ST elevation. She was also found to be in fluid overload, started on ACS protocol, heparin, Lasix and transferred to the [facility] for higher level of care. Troponin has trended up 530 and BNP 539, and chest x-ray shows interstitial pulmonary edema/infiltrates. She is being admitted to the intensive care unit for further evaluation and management. PATIENT NARRATIVE: 08/10: No acute events overnight. No significant chest pain or shortness of breath. Anxious. Troponin is trending down. On intravenous heparin, beta-blockers aspirin and statins. Plavix is on hold in case the patient goes for CABG. Cardiology and cardiothoracic surgery services following. Await further recommendations 08/11: No chest pain jaw pain or arm pain. On heparin infusion. Plans for high risk CABG week of 08/[address] King Montiel. The patient is being transitioned out to CV IMU, pending CABG. Walked 320 feet with physical therapy 08/12: Denies any chest pain or shortness of breath. No headache or dizziness. No nausea or vomiting. Has chronic constipation. On heparin infusion. Plans for high risk CABG week of 08/[address] King Montiel 08/13: No acute events overnight. No chest pain or shortness of breath. No headache or dizziness. The patient was reluctant to get her blood drawn for the PTT, explained to by the nurses. Agreeable. PTT therapeutic. Potassium low, 2.9, replaced On Lasix 40 mg IV daily. Intake and output are not accurate. Walked about 320 feet with physical therapy. 08/14: No acute events overnight. Just anxious, taking her benzodiazepines. On heparin infusion. On diuretics and electrolyte replacement. Plans for high risk CABG week of 08/[address] King Montiel. 08/15: Heparin stopped by Dr. King Montiel. Surgery most likely 08/17. In general doing okay. No chest pain or shortness of breath. No headache or dizziness. Anxious. 08/16: No acute events. No chest pain or shortness of breath. In general feels all right. Plans for high risk CABG 08/[address] King Montiel 08/17: The patient underwent 3V CABG, SCHWARTZ to LAD, saphenous vein graft to the obtuse marginal and saphenous vein graft to the posterior descending artery by Dr King Montiel 08/17/20. EBL 750 cc. Received 2 units of PRBC and 2 Cell Saver. Urine output is good. [address] extubated 08/17 -- OBJECTIVE -- VITALS (08/16 10:46 - 08/17 10:46): Temperature F: 97.8 Temperature C: 36.5 (36.4 - 36.5) Temperature source: Oral Pulse Rate 63 (63 - 96) Respiratory rate: 18 (13 - 23) Blood pressure: 108/53 (82/52 - 108/59) Blood pressure source: Monitor I/Os (08/16 07:00 - 08/17 07:00): Net -450 Output 450 -EXAM- GENERAL: GENERAL: Elderly female, anxious, not in any acute distress. VITAL SIGNS: Weight is 61.3 kilograms. Body mass index 27.3. HEENT: Head is atraumatic. NECK: Supple. No thyromegaly. No JVD. CARDIOVASCULAR: Regular rate and rhythm. CHEST: sternotomy; 2 CTs LUNGS: Coarse BS ABDOMEN: Soft, nondistended, nontender. No organomegaly. EXTREMITIES: No edema, cyanosis, or clubbing. Pedal pulses palpable. NEUROLOGIC: No focal deficit. INDWELLING MUNOZ: Yes -- DATA -- MEDICATIONS morphine SULFATE 2 MG IV Q2H PRN DEXTROSE 50%-WATER 25 ML IV ASDIR PRN ALBUTEROL SULFATE 2.5 MG NEB RTQ6H PRN LACTULOSE 30 ML PO BID PRN polyethylene glycoL 3350 1 PKT PO DAILY NITROGLYCERIN 0.4 MG SL Q5M PRN ONDANSETRON HCL/PF 4 MG IV Q6H PRN FUROSEMIDE 40 MG IV DAILY@0700 ASPIRIN 81 MG PO DAILY METOPROLOL TARTRATE 5 MG IV Q6H PRN HYOSCYAMINE SULFATE 0.125 MG PO DAILY PRN DOCUSATE SODIUM 200 MG PO DAILY cloNIDine HCL 0.1 MG PO Q8H PRN LORazepam 0.5 MG PO Q6H PRN HYDROcodone BITARTRATE/APAP 1 TAB PO Q4H PRN ACETAMINOPHEN 650 MG PO Q6H PRN GLUCAGON 1 MG IM ASDIR PRN ONDANSETRON 4 MG PO Q6H PRN clonazePAM 0.5 MG PO BID POTASSIUM CHLORIDE 40 MEQ PO DAILY MONTELUKAST SODIUM 10 MG PO DAILY@1800 bisacodyL 10 MG RECTAL DAILY PRN ATORVASTATIN CALCIUM 80 MG PO BEDTIME METOPROLOL SUCCINATE 25 MG PO Q12HR LABS ACT (08/17/23 10:25) COAGULATION TIME ACTIVATED 585 H CBC W/AUTO DIFF (08/17/23 05:28) WHITE BLOOD CELL 7.2 RED BLOOD CELL 3.90 L HEMOGLOBIN 11.5L L HEMATOCRIT 35.0L L MEAN CELL VOLUME 89.7 MEAN CELL HGB 29.5 MEAN CELL HGB CONCENTRATION 32.9 L RED CELL DISTRIBUTION WIDTH 13.5 PLATELET COUNT 303 MEAN PLATELET VOLUME 9.4 NEUTROPHIL % 58.3 LYMPHOCYTE % 24.8 MONOCYTE % 11.5 H EOSINOPHIL % 4.1 BASOPHIL % 1.0 NEUTROPHIL # 4.22 LYMPHOCYTE # 1.79 MONOCYTE # 0.83 H EOSINOPHIL # 0.30 BASOPHIL # 0.07 COMPREHENSIVE METABOLIC PANEL (08/16/23 21:23) SODIUM 132 L POTASSIUM 4.6 CHLORIDE 101 CARBON DIOXIDE 23 GLUCOSE 102 BLOOD UREA NITROGEN 28 H GLOMERULAR FILTRATION RATE 49 L CREATININE 1.10 H TOTAL PROTEIN 7.6 ALBUMIN 4.5 CALCIUM 9.3 BILIRUBIN TOTAL 0.6 SGOT/AST 24 SGPT/ALT 21 ALKALINE PHOSPHATASE 115.0 PROTHROMBIN TIME (08/16/23 21:23) PROTHROMBIN TIME PATIENT 12.1 INTERNATIONAL NORMAL RATIO 1.08 PTT (08/16/23 21:23) THROMBOPLASTIN TIME PARTIAL 21.7 D L PROTHROMBIN TIME (08/17/23 13:29) PROTHROMBIN TIME PATIENT 14.3 H INTERNATIONAL NORMAL RATIO 1.29 H CBC W/AUTO DIFF (08/17/23 13:29) WHITE BLOOD CELL 10.8 RED BLOOD CELL 3.84 L HEMOGLOBIN 11.0L L HEMATOCRIT 33.6L L MEAN CELL VOLUME 87.5 MEAN CELL HGB 28.6 MEAN CELL HGB CONCENTRATION 32.7 L RED CELL DISTRIBUTION WIDTH 14.7 PLATELET COUNT 139L L MEAN PLATELET VOLUME 9.3 NEUTROPHIL % 78.5 H LYMPHOCYTE % 10.9 L MONOCYTE % 8.8 EOSINOPHIL % 0.7 BASOPHIL % 0.4 NEUTROPHIL # 8.46 H LYMPHOCYTE # 1.18 MONOCYTE # 0.95 H EOSINOPHIL # 0.08 BASOPHIL # 0.04 BASIC METABOLIC PANEL (08/17/23 13:29) SODIUM 143D D POTASSIUM 4.3 CHLORIDE 112D H D H CARBON DIOXIDE 19L L GLUCOSE 141H H BLOOD UREA NITROGEN 22 GLOMERULAR FILTRATION RATE >=60 max estimate CREATININE 0.70 CALCIUM 9.7 VENOUS BLOOD GAS (08/17/23 14:01) VENOUS BLOOD GAS PH 7.29 L VENOUS BLOOD GAS PCO2 44.8 VENOUS BLOOD GAS PO2 38.6 VBG HCO3 21 VBG BASE EXCESS -5.2 VENOUS BLOOD GAS O2 SAT 68 VENOUS BLOOD GAS TYPE Venous VENOUS BLOOD GAS FIO2 40.0 VBG VENT MODE Ventilator MAG (08/17/23 13:29) MAGNESIUM 2.9 H -- QUALITY -- -MEDICATIONS- - I attest that the foregoing medication list in the medical record is true, accurate, and complete to the best of my knowledge. -- ATTESTATION -- CARE ACTIVITIES / CARE COORDINATION: - I have reviewed the history and repeated the snyder elements - I have seen and examined this patient - I have reviewed the progress in the clinical course since the last examination - I have discussed the patient's condition with other members of the care team Signed in PatientKeeper by Marianne Mckay MD on 08/17/23 at 21:17 at 2117 ATTENTION *EDITS and/or ADDENDA must be made in Patient Keeper for this note. * * Edits and ammendments created in [employer] are not visible * * in Patient Keeper or the legal medical record (HPF). * RPT #: [id number] END OF REPORT [facility] 2023-08-17 14:47:00 [facility] ([facility]) Brief Operative Report REPORT #: [id number] REPORT STATUS: Signed DATE: 08/17/23 TIME: 1446 PATIENT: ROCK GOMEZ UNIT #: [id number] ROOM #: P.0307 BED: 1 : 36 AGE: 88 SEX: F ATTEND: Marianne Mckay MD ADM AUTHOR: Frances Aguilar ATTENTION *EDITS and/or ADDENDA must be made in Patient Keeper for this note. * * Edits and ammendments created in [employer] are not visible * * in Patient Keeper or the legal medical record ([facility]). * -- BRIEF OP NOTE -- PRE-OPERATIVE DIAGNOSIS: Severe multi-vessel coronary artery disease NSTEMI Hypertension Hyperlipidemia Diastolic congestive heart failure Chronic kidney disease (stage II) Asthma Chronic bronchitis Esophageal strictures History of tobacco use (quit ) Osteoarthritis POST-OPERATIVE DIAGNOSIS: Same as above. NAME OF PROCEDURE: Coronary artery bypass grafting x 3 (SCHWARTZ-LAD, SVG-OM, SVG-PDA) Endoscopic vein harvest (RLE and LLE) SURGEON: King Montiel MD COMMERCIAL ILLUSTRATOR(S): RENE Barker PA-C FINDINGS: See full summary. ESTIMATED BLOOD LOSS (ML'S): 750 SPECIMEN(S) REMOVED AND/OR ALTERED: None. COMPLICATION(S): None. DRAIN(S): 1. 28Fr right angle to the left pleural space. 2. 36Fr chest tube to the anterior mediastinum. ADDITIONAL COMMENTS: Ventricular bipolar epicardial pacing wires connected to pacer box. Urine output: 1L Crystalloid: 1L Cell saver: 2 units PRBC: 2 units The patient tolerated the procedure well and was transported to the CVICU for postoperative management. Signed in PatientKeeper by Frances Aguilar on 08/17/23 at 15:02 Cosigned by KING MONTIEL MD on 08/18/23 at 06:49 at 0649 at 0649 ATTENTION *EDITS and/or ADDENDA must be made in Patient Keeper for this note. * * Edits and ammendments created in [employer] are not visible * * in Patient Keeper or the legal medical record ([facility]). * [facility] #: [id number] END OF REPORT [facility] 2023-08-17 14:03:00 [facility] ([facility]) Intensive Care Consultation REPORT #: [id number] REPORT STATUS: Signed DATE: 08/17/23 TIME: 1403 PATIENT: ROCK GOMEZ UNIT #: [id number] ROOM #: [facility] BED: 1 : 36 AGE: 88 SEX: F ATTEND: Marianne Mckay MD ADM AUTHOR: Bharati Hodges MD ATTENTION *EDITS and/or ADDENDA must be made in Patient Keeper for this note. * * Edits and ammendments created in [employer] are not visible * * in Patient Keeper or the legal medical record ([facility]). * -- ASSESSMENT AND PLAN -- GENERAL ASSESSMENT: I examined her, reviewed her EMR information and data and discussed her plan of care with supporting clinical and ancillary services. Assessment and Plan ICU Sedation, analgesia H/o Anxiety - Sedated on periop anesthesia and prn Fentanyl - For prn Alprazolam - Will reverse when clinically unlabile Acute resp insufficiency on MV H/o Asthma H/o Chronic bronchitis - Initial ABGs adequate - pCXR showed ETT in good position and chronic changes - For pulm hygiene, breathing Rx, wean FiO2. - Will liberate when clinically unlabile S/p CABG X 3 as above H/o mv CAD Acute chronotropic incompetence LVH H/o HTN - Clean median sternotomy incision dressing - Chest tubes with minimal drainage. - Fully paced with labile BP - On ASA/Statin - Serially reassessing for intrinsic rythm - Bolusing with aliquots of colloid as indicated - Serially reassessing with exam, perfusion indices - D/w Dr. Montiel who is following Nutrition - NPO - Will assess when extubated Acute prerenal azotemia Uremic/Hyperchloremic metabolic acidosis - Aliquots of colloid as above - Will use hypochloremic crystalloids - Serially reassessing UO, lytes fluid status Acute blood loss anemia - Appropriate response to PRBCs - Serially reassessing Euglycemia H/o HLD - Will cover with ISS. - On Statin Afebrile without leukocytosis - No overt ID focus - Completing periop antibiotics Prophylaxis - SCDs - Pharmacoprophylaxis held 2/2 high risk for bleeding Medications reviewed Full Code per patient preop. Will inquire with family about Advance care guidelines -- HISTORY -- CONSULT REQUESTED BY: King Montiel MD REASON FOR CONSULT: ICU Management after CABG X [address] Montiel HPI: Ms. Gomez is an 88 yr old F with a PMHx of HTN, HLD, Asthma, Anxiety, Chronic Bronchitis and CAD s/p Angioplasty in 2011 who is transferred to the CVICU from the OR after CABG X 3 (SCHWARTZ-LAD, rSVG-PDA, rSVG-OM) by Dr. Montiel. She arrived in the unit intubated, under perianesthetic sedation and fully paced. She received 2 L crystalloid, X 2 PRBCs, X2 C/saver. EBL was estimated at 750 mls and she made 1000 mls UO. PAST MEDICAL HISTORY: As above PAST SURGICAL HISTORY: As above and - Hernia repair - Colostomy reversal - Appy FAMILY HISTORY: Not contributory -SOCIAL HISTORY- -TOBACCO USE- DETAILS/COMMENTS: Until the per EMR -VAPING/INHALED SOLVENTS- DETAILS/COMMENTS: Unable to elicit -ALCOHOL USE- DETAILS/COMMENTS: Unable to elicit -DRUG USE- DETAILS/COMMENTS: Unable to elicit -- SUBJECTIVE -- -REVIEW OF SYSTEMS- COMMENT: Unable to elicit 2/2 intubation and sedation -- OBJECTIVE -- VITALS (08/16 14:03 - 08/17 14:03): Temperature F: 97.8 Temperature C: 36.5 (36.4 - 36.5) Temperature source: Oral Pulse Rate 63 (63 - 96) Respiratory rate: 18 (13 - 23) Blood pressure: 108/53 (82/52 - 108/59) Blood pressure source: Monitor I/Os (08/16 07:00 - 08/17 07:00): Net -450 Output 450 -EXAM- GENERAL: Sedated and on MV HEAD: Normocephalic, atraumatic. EYES: Pale and anicteric MOUTH: ETT in place NECK: Rt IJ CVC in place CHEST: Clean median sternotomy incision wound dressing. Adequate excursion on MV. BREAST: Symmetrical without overt abnormalities LUNGS: Transmitted BS bilaterally. No crackles, wheezing HEART: S1 S2 heard, regular, no murmurs or rub ABDOMEN: Not distended, soft, BS sluggish MUSCULOSKELETAL: No deformity, no scoliosis noted of thoracic or lumbar spine EXTREMITIES: Cool and no edema NEUROLOGICAL: Sedated on MV, pupils 2 equal and reactive PULSES: Peripheral pulses palpable SKIN: Intact without significant lesions, or rashes. -- DATA -- MEDICATIONS ACETAMINOPHEN 650 MG RECTAL Q4H PRN polyethylene glycoL 3350 1 PKT PO DAILY polyethylene glycoL 3350 1 PKT PO DAILY DOCUSATE SODIUM 200 MG PO DAILY CALCIUM GLUC IN NACL, ISO-OSM 2 GM IV ASDIR PRN traMADol HCL 50 MG PO Q6HR LACTULOSE 30 ML PO ASDIR PRN ACETAMINOPHEN 1000 MG IV .EVERY 8 HOURS LACTULOSE 30 ML PO ASDIR PRN ASPIRIN 81 MG PO DAILY SODIUM CHLORIDE 10 mL 10 ML IV ASDIR HYOSCYAMINE SULFATE 0.125 MG PO DAILY PRN bisacodyL 10 MG RECTAL ASDIR PRN DOCUSATE SODIUM 200 MG PO DAILY cloNIDine HCL 0.1 MG PO Q8H PRN ACETAMINOPHEN 650 MG PO Q6H PRN GLUCAGON 1 MG IM ASDIR PRN ONDANSETRON 4 MG PO Q6H PRN MAGNESIUM HYDROXIDE 30 ML PO ASDIR PRN MONTELUKAST SODIUM 10 MG PO DAILY@1800 ONDANSETRON HCL/PF 4 MG IV Q6H PRN MAGNESIUM 1 GM IV ASDIR PRN ATORVASTATIN CALCIUM 80 MG PO BEDTIME CHLORHEXIDINE GLUCONATE 15 ML MM Q6H FERROUS SULFATE 325 MG PO DAILY VANCOMYCIN HCL with/in SODIUM CHLORIDE 0.9% 1000 MG IV 2000 DEXTROSE 50%-WATER 25 ML IV ASDIR PRN ALBUTEROL SULFATE 2.5 MG NEB RTQ6H PRN LACTULOSE 30 ML PO BID PRN ceFAZolin SODIUM with/in WATER FOR INJECTION,STERILE 2 GM IV 1500 ACETAMINOPHEN 650 MG PO Q4H PRN EPINEPHrine HCL/D5W 4 MG IV ASDIR ACETAMINOPHEN 650 MG PO Q6HR niCARdipine HCL with/in SODIUM CHLORIDE 100 mL BAG 25 MG IV TITRATE NITROGLYCERIN 0.4 MG SL Q5M PRN ONDANSETRON HCL/PF 4 MG IV Q6H PRN POTASSIUM CHLORIDE 20 MEQ IV ASDIR (PRN) SENNOSIDES 2 TAB PO ASDIR PRN NOREPINEPHRINE BITARTRATE 4 MG IV TITRATE CYANOCOBALAMIN 500 MCG PO DAILY DEXTROSE 50%-WATER 25 ML IV ASDIR PRN GLUCAGON 1 MG IM ASDIR PRN LORazepam 0.5 MG PO Q6H PRN HYDROcodone BITARTRATE/APAP 1 TAB PO Q4H PRN (Held) clonazePAM 0.5 MG PO BID methocarbamoL 250 MG PO .EVERY 8 HOURS bisacodyL 10 MG RECTAL DAILY PRN SODIUM BICARBONATE 8.4% 50 MEQ IV .ONCE PRN ASPIRIN 81 MG PO DAILY MUPIROCIN 1 APPLIC NASAL BID LABS PROTHROMBIN TIME (08/17/23 13:29) PROTHROMBIN TIME PATIENT 14.3 H INTERNATIONAL NORMAL RATIO 1.29 H LACTIC ACID (08/17/23 13:29) LACTIC ACID 0.80 PTT (08/17/23 13:29) THROMBOPLASTIN TIME PARTIAL 30.7 D CBC W/AUTO DIFF (08/17/23 13:29) WHITE BLOOD CELL 10.8 RED BLOOD CELL 3.84 L HEMOGLOBIN 11.0L L HEMATOCRIT 33.6L L MEAN CELL VOLUME 87.5 MEAN CELL HGB 28.6 MEAN CELL HGB CONCENTRATION 32.7 L RED CELL DISTRIBUTION WIDTH 14.7 PLATELET COUNT 139L L MEAN PLATELET VOLUME 9.3 NEUTROPHIL % 78.5 H LYMPHOCYTE % 10.9 L MONOCYTE % 8.8 EOSINOPHIL % 0.7 BASOPHIL % 0.4 NEUTROPHIL # 8.46 H LYMPHOCYTE # 1.18 MONOCYTE # 0.95 H EOSINOPHIL # 0.08 BASOPHIL # 0.04 ACT (08/17/23 12:33) COAGULATION TIME ACTIVATED 136 ACT (08/17/23 11:54) COAGULATION TIME ACTIVATED 515 H ACT (08/17/23 11:21) COAGULATION TIME ACTIVATED 580 H ACT (08/17/23 10:52) COAGULATION TIME ACTIVATED 590 H ACT (08/17/23 10:25) COAGULATION TIME ACTIVATED 585 H CBC W/AUTO DIFF (08/17/23 05:28) WHITE BLOOD CELL 7.2 RED BLOOD CELL 3.90 L HEMOGLOBIN 11.5L L HEMATOCRIT 35.0L L MEAN CELL VOLUME 89.7 MEAN CELL HGB 29.5 MEAN CELL HGB CONCENTRATION 32.9 L RED CELL DISTRIBUTION WIDTH 13.5 PLATELET COUNT 303 MEAN PLATELET VOLUME 9.4 NEUTROPHIL % 58.3 LYMPHOCYTE % 24.8 MONOCYTE % 11.5 H EOSINOPHIL % 4.1 BASOPHIL % 1.0 NEUTROPHIL # 4.22 LYMPHOCYTE # 1.79 MONOCYTE # 0.83 H EOSINOPHIL # 0.30 BASOPHIL # 0.07 COMPREHENSIVE METABOLIC PANEL (08/16/23 21:23) SODIUM 132 L POTASSIUM 4.6 CHLORIDE 101 CARBON DIOXIDE 23 GLUCOSE 102 BLOOD UREA NITROGEN 28 H GLOMERULAR FILTRATION RATE 49 L CREATININE 1.10 H TOTAL PROTEIN 7.6 ALBUMIN 4.5 CALCIUM 9.3 BILIRUBIN TOTAL 0.6 SGOT/AST 24 SGPT/ALT 21 ALKALINE PHOSPHATASE 115.0 PROTHROMBIN TIME (08/16/23 21:23) PROTHROMBIN TIME PATIENT 12.1 INTERNATIONAL NORMAL RATIO 1.08 PTT (08/16/23 21:23) THROMBOPLASTIN TIME PARTIAL 21.7 D L -- ATTESTATION -- TIME SPENT ON PATIENT CARE: - Critical care: time spent apart from any procedure 47 minutes CARE ACTIVITIES / CARE COORDINATION: - I have reviewed the history and repeated the snyder elements - I have seen and examined this patient - I have reviewed the progress in the clinical course since the last examination - I have discussed the patient's condition with other members of the care team Signed in PatientKeeper by Bharati Hodges MD on 08/18/23 at 01:47 at 0147 ATTENTION *EDITS and/or ADDENDA must be made in Patient Keeper for this note. * * Edits and ammendments created in [facility] are not visible * * in Patient Keeper or the legal medical record (HPF). * [facility] #: [id number] END OF REPORT [facility] 2023-08-17 13:49:00 [id number] [place] [address] PATIENT NAME: ROCK GOMEZ ADMIT DATE: 08/09/23 ACCOUNT NO: [id number] ROOM NO: P.0307 AGE: 88 REPORT TYPE: eELECTROCARDIOGRAM SEX: F ADMITTING PHYSICIAN: Marianne Mckay MD ATTENDING PHYSICIAN: Marianne Mckay MD Order: [id number] Test Reason : Cardiac Surgery Postop Test Date/Time Stamp: WedAug 17 2023 13:49:40 Blood Pressure : / mmHG Vent. Rate : 076 BPM Atrial Rate : 087 BPM P-R Int : 000 ms QRS Dur : 160 ms QT Int : 498 ms P-R-T Axes : 000 -64 259 degrees QTc Int : 560 ms Sinus rhythm with complete heart block and Ventricular-paced rhythm Abnormal ECG Confirmed by DIYA COURTNEY ([id number]) on 08/18/2023 2:58:25 PM Referred By: Self Referred Confirmed by:DIYA COURTNEY at [id number] PATIENT NAME: ROCK GOMEZ [facility] 2023-08-17 10:45:00 [facility] ([facility]) Cardiology Progress Notes REPORT #: [id number] REPORT STATUS: Signed DATE: 08/17/23 TIME: 1045 PATIENT: ROCK GOMEZ UNIT #: [id number] ROOM #: P.0405 BED: A : 36 AGE: 88 SEX: F ATTEND: Marianne Mckay MD ADM AUTHOR: Lisa Wing DO CF1 ATTENTION *EDITS and/or ADDENDA must be made in Patient Keeper for this note. * * Edits and ammendments created in [employer] are not visible * * in Patient Keeper or the legal medical record (HPF). * -- CO-SIGNATURE -- COMMENTS: I have seen and examined the patient with the medical clinic manager fellow Dr. Lisa Wing MD on 08/17/2023. I have reviewed all the clinical information, lab investigations, and imaging data. I agree with the following examination, findings, assessment and plan. I was present and supervised. Signed in PatientKeeper by YUE GARZA MD on 09/01/23 at 08:55 -- ASSESSMENT AND PLAN -- HOSPITAL COURSE TO DATE: 08/11 okay to downgrade to CV IMU 08/17 s/p CABG GENERAL ASSESSMENT: The patient is an 88-year-old female (patient of Dr. Gianna Ambrose) has a PMHx of coronary artery disease (s/p PCI with 3 ALEC), family history of coronary artery disease, carotid artery disease, hypertension, hyperlipidemia, h/o nicotine use, asthma, chronic bronchitis, anxiety. She has been having chest pressure radiating to her jaw and shortness of breath for the past 3 weeks. She was evaluated by her medical clinic manager, had stress test on 07/28/2023 what was abnormal, showed cardiomyopathy, an EF of 34%, severe inferolateral, posterolateral ischemia. Echocardiogram (06/2023) showed an EF 55-60%, moderate MR. She had coronary angiogram on 07/31/23 and showed three vessel coronary artery disease, torturous aorta with small abdominal aortic aneurysm. elevated LVEDP that is not amenable for PCI. She was evaluated by CV surgery, Dr. Montiel, for CABG. She presented at an outside hospital with complaint of chest pain radiating to her left jaw, diaphoresis and she was ruled in NSTEMI. She was transferred here to [facility] for higher level of care. Chest x-ray showed interstitial and basilar airspace edema/infiltrates, cardiomegaly. Blood work showed troponin of 534.3, BNP 539, Mg 1.3. She denies chest pain, shortness of breath, palpitations now. Cardiology consulted for MVCAD. CT surgery planning CABG 08/17. PROBLEMS: 1: NSTEMI (non-ST elevated myocardial infarction) A/P: - cont on IV heparin - TTE 08/09/2023 LVEF 40-44%, moderate MR - CT chest w/o contrast showed RUL PNA, Right pleural effusion, Platelike atelectasis in the lower lobes. - On aspirin, atorvastatin 80mg daily, metoprolol XL 25mg BID - resume clopidogrel when cleared by CT surgery - s/p CABG 08/17/2023 (Dr. Montiel) - chest tube management per CT surgery - PT/OT/IS - cont to monitor and replete electrolytes 2: Complete heart block, post-surgical A/P: - possible myocardial stunning postop - monitor on tele - on TPW - consider EP consult if persistent -- SUBJECTIVE -- CHIEF COMPLAINT: AMELIA this AM s/p CABG this AM intubated and sedated. Tele: V paced 80bpm -REVIEW OF SYSTEMS- COMMENT: 10 point ROS negative unless noted. -- OBJECTIVE -- VITALS (08/16 10:45 - 08/17 10:45): Temperature F: 97.8 Temperature C: 36.5 (36.4 - 36.5) Temperature source: Oral Pulse Rate 63 (63 - 96) Respiratory rate: 18 (13 - 23) Blood pressure: 108/53 (82/52 - 108/59) Blood pressure source: Monitor I/Os (08/16 07:00 - 08/17 07:00): Net -450 Output 450 -EXAM- GENERAL: Well developed, well nourished, in no apparent distress. CHEST: sternotomy site dressing c/d/i; chest tubes in place, + TPW LUNGS: Clear bilaterally with normal respiratory effort. HEART: Regular rate and rhythm, normal S1, S2, no murmurs ABDOMEN: Soft, non-tender EXTREMITIES: No clubbing, no cyanosis, no edema. NEUROLOGICAL: No focal deficits, cranial nerves II-XII grossly intact PULSES: Pulses normal in all extremities. SKIN: Intact without significant lesions, or rashes. PSYCHIATRIC: Alert and oriented to time, person, place. Normal mood and affect, intact judgment and insight. -- DATA -- MEDICATIONS morphine SULFATE 2 MG IV Q2H PRN DEXTROSE 50%-WATER 25 ML IV ASDIR PRN ALBUTEROL SULFATE 2.5 MG NEB RTQ6H PRN LACTULOSE 30 ML PO BID PRN polyethylene glycoL 3350 1 PKT PO DAILY NITROGLYCERIN 0.4 MG SL Q5M PRN ONDANSETRON HCL/PF 4 MG IV Q6H PRN FUROSEMIDE 40 MG IV DAILY@0700 ASPIRIN 81 MG PO DAILY METOPROLOL TARTRATE 5 MG IV Q6H PRN HYOSCYAMINE SULFATE 0.125 MG PO DAILY PRN DOCUSATE SODIUM 200 MG PO DAILY cloNIDine HCL 0.1 MG PO Q8H PRN LORazepam 0.5 MG PO Q6H PRN HYDROcodone BITARTRATE/APAP 1 TAB PO Q4H PRN ACETAMINOPHEN 650 MG PO Q6H PRN GLUCAGON 1 MG IM ASDIR PRN ONDANSETRON 4 MG PO Q6H PRN clonazePAM 0.5 MG PO BID POTASSIUM CHLORIDE 40 MEQ PO DAILY MONTELUKAST SODIUM 10 MG PO DAILY@1800 bisacodyL 10 MG RECTAL DAILY PRN ATORVASTATIN CALCIUM 80 MG PO BEDTIME METOPROLOL SUCCINATE 25 MG PO Q12HR LABS ACT (08/17/23 10:25) COAGULATION TIME ACTIVATED 585 H CBC W/AUTO DIFF (08/17/23 05:28) WHITE BLOOD CELL 7.2 RED BLOOD CELL 3.90 L HEMOGLOBIN 11.5L L HEMATOCRIT 35.0L L MEAN CELL VOLUME 89.7 MEAN CELL HGB 29.5 MEAN CELL HGB CONCENTRATION 32.9 L RED CELL DISTRIBUTION WIDTH 13.5 PLATELET COUNT 303 MEAN PLATELET VOLUME 9.4 NEUTROPHIL % 58.3 LYMPHOCYTE % 24.8 MONOCYTE % 11.5 H EOSINOPHIL % 4.1 BASOPHIL % 1.0 NEUTROPHIL # 4.22 LYMPHOCYTE # 1.79 MONOCYTE # 0.83 H EOSINOPHIL # 0.30 BASOPHIL # 0.07 COMPREHENSIVE METABOLIC PANEL (08/16/23 21:23) SODIUM 132 L POTASSIUM 4.6 CHLORIDE 101 CARBON DIOXIDE 23 GLUCOSE 102 BLOOD UREA NITROGEN 28 H GLOMERULAR FILTRATION RATE 49 L CREATININE 1.10 H TOTAL PROTEIN 7.6 ALBUMIN 4.5 CALCIUM 9.3 BILIRUBIN TOTAL 0.6 SGOT/AST 24 SGPT/ALT 21 ALKALINE PHOSPHATASE 115.0 PROTHROMBIN TIME (08/16/23 21:23) PROTHROMBIN TIME PATIENT 12.1 INTERNATIONAL NORMAL RATIO 1.08 PTT (08/16/23 21:23) THROMBOPLASTIN TIME PARTIAL 21.7 D L Signed in PatientKeeper by LISA WING on 08/17/23 at 17:22 Cosigned by YUE GARZA MD on 09/01/23 at 08:55 at 0855 at 0855 ATTENTION *EDITS and/or ADDENDA must be made in Patient Keeper for this note. * * Edits and ammendments created in [employer] are not visible * * in Patient Keeper or the legal medical record (HPF). * [facility] #: [id number] END OF REPORT [facility] 2023-08-17 09:34:00 [facility] ([facility]) Progress Note REPORT #: [id number] REPORT STATUS: Signed DATE: 08/17/23 TIME: 933 PATIENT: ROCK GOMEZ UNIT #: [id number] ROOM #: [facility] BED: 1 : 36 AGE: 88 SEX: F ATTEND: Marianne Mckay MD ADM AUTHOR: Clinton De La Rosa MD ATTENTION *EDITS and/or ADDENDA must be made in Patient Keeper for this note. * * Edits and ammendments created in [employer] are not visible * * in Patient Keeper or the legal medical record (HPF). * -- ASSESSMENT AND PLAN -- PROBLEMS: 1: NSTEMI (non-ST elevated myocardial infarction) A/P: Undergoing CABG on 08/17/23. - Monitor patient for any bleeding episodes. - Monitor chest tube output/color. - Monitor urine output volume/color. - Check CBC, PTT, INR, and Fibrinogen daily. - Follow up with Cardiac surgery recs. - Encourage rehab/ambulation as tolerated. Follow up with PT/OT recs. ADDITIONAL COMMENTS: This is my first clinical note for this patient. Thank you for the consult. -- SUBJECTIVE -- HPI: Undergoing CABG today. NPO. Intubated. Munoz in place. Platelets normal, hemoglobin at 11.5. -REVIEW OF SYSTEMS- COMMENT: Unable to answer questions. Patient intubated. -- OBJECTIVE -- VITALS (08/16 09:34 - 08/17 09:34): Temperature F: 97.8 Temperature C: 36.5 (36.4 - 36.5) Temperature source: Oral Pulse Rate 63 (63 - 96) Respiratory rate: 18 (13 - 32) Blood pressure: 108/53 (82/52 - 108/59) Blood pressure source: Monitor I/Os (08/16 07:00 - 08/17 07:00): Net -450 Output 450 -EXAM- GENERAL: GENERAL: Elderly female, anxious, not in any acute distress. VITAL SIGNS: oxygen saturation 99% on room air. Weight is 61.3 kilograms. Body mass index 27.3. HEENT: Head is atraumatic. Pupils are reactive to light and accommodation. Extraocular muscles intact. NECK: Supple. No thyromegaly. No JVD. CARDIOVASCULAR: Regular rate and rhythm. LUNGS: Clear to auscultation. ABDOMEN: Soft, nondistended, nontender. No organomegaly. EXTREMITIES: No edema, cyanosis, or clubbing. Pedal pulses palpable. NEUROLOGIC: No focal deficit. -- DATA -- MEDICATIONS morphine SULFATE 2 MG IV Q2H PRN DEXTROSE 50%-WATER 25 ML IV ASDIR PRN ALBUTEROL SULFATE 2.5 MG NEB RTQ6H PRN LACTULOSE 30 ML PO BID PRN polyethylene glycoL 3350 1 PKT PO DAILY NITROGLYCERIN 0.4 MG SL Q5M PRN ONDANSETRON HCL/PF 4 MG IV Q6H PRN FUROSEMIDE 40 MG IV DAILY@0700 ASPIRIN 81 MG PO DAILY METOPROLOL TARTRATE 5 MG IV Q6H PRN HYOSCYAMINE SULFATE 0.125 MG PO DAILY PRN DOCUSATE SODIUM 200 MG PO DAILY cloNIDine HCL 0.1 MG PO Q8H PRN LORazepam 0.5 MG PO Q6H PRN HYDROcodone BITARTRATE/APAP 1 TAB PO Q4H PRN ACETAMINOPHEN 650 MG PO Q6H PRN GLUCAGON 1 MG IM ASDIR PRN ONDANSETRON 4 MG PO Q6H PRN clonazePAM 0.5 MG PO BID POTASSIUM CHLORIDE 40 MEQ PO DAILY MONTELUKAST SODIUM 10 MG PO DAILY@1800 bisacodyL 10 MG RECTAL DAILY PRN ATORVASTATIN CALCIUM 80 MG PO BEDTIME METOPROLOL SUCCINATE 25 MG PO Q12HR LABS CBC W/AUTO DIFF (08/17/23 05:28) WHITE BLOOD CELL 7.2 RED BLOOD CELL 3.90 L HEMOGLOBIN 11.5L L HEMATOCRIT 35.0L L MEAN CELL VOLUME 89.7 MEAN CELL HGB 29.5 MEAN CELL HGB CONCENTRATION 32.9 L RED CELL DISTRIBUTION WIDTH 13.5 PLATELET COUNT 303 MEAN PLATELET VOLUME 9.4 NEUTROPHIL % 58.3 LYMPHOCYTE % 24.8 MONOCYTE % 11.5 H EOSINOPHIL % 4.1 BASOPHIL % 1.0 NEUTROPHIL # 4.22 LYMPHOCYTE # 1.79 MONOCYTE # 0.83 H EOSINOPHIL # 0.30 BASOPHIL # 0.07 COMPREHENSIVE METABOLIC PANEL (08/16/23 21:23) SODIUM 132 L POTASSIUM 4.6 CHLORIDE 101 CARBON DIOXIDE 23 GLUCOSE 102 BLOOD UREA NITROGEN 28 H GLOMERULAR FILTRATION RATE 49 L CREATININE 1.10 H TOTAL PROTEIN 7.6 ALBUMIN 4.5 CALCIUM 9.3 BILIRUBIN TOTAL 0.6 SGOT/AST 24 SGPT/ALT 21 ALKALINE PHOSPHATASE 115.0 PROTHROMBIN TIME (08/16/23 21:23) PROTHROMBIN TIME PATIENT 12.1 INTERNATIONAL NORMAL RATIO 1.08 PTT (08/16/23 21:23) THROMBOPLASTIN TIME PARTIAL 21.7 D L -- ATTESTATION -- TIME SPENT ON PATIENT CARE: - Direct 55 minutes CARE ACTIVITIES / CARE COORDINATION: - I have reviewed the history and repeated the snyder elements - I have seen and examined this patient - I have reviewed the progress in the clinical course since the last examination - I have discussed the patient's condition with other members of the care team Signed in PatientKeeper by Clinton De La Rosa MD on 08/17/23 at 09:36 at 0936 ATTENTION *EDITS and/or ADDENDA must be made in Patient Keeper for this note. * * Edits and ammendments created in [facility] are not visible * * in Patient Keeper or the legal medical record (HPF). * [facility] #: [id number] END OF REPORT [facility] 2023-08-16 13:47:00 [facility] ([facility]) Hospitalist Progress Note REPORT #: [id number] REPORT STATUS: Signed DATE: 08/16/23 TIME: 1347 PATIENT: ROCK GOMEZ UNIT #: [id number] ROOM #: P.0405 BED: A : 36 AGE: 88 SEX: F ATTEND: Marianne Mckay MD ADM AUTHOR: Marianne Mckay MD ATTENTION *EDITS and/or ADDENDA must be made in Patient Keeper for this note. * * Edits and ammendments created in [employer] are not visible * * in Patient Keeper or the legal medical record (HPF). * -- ASSESSMENT AND PLAN -- GENERAL ASSESSMENT: ASSESSMENT AND PLAN: 1. Non-ST segment elevation myocardial infarction in a patient with a known history of severe multivessel coronary artery disease including proximal 80% LAD, 90% ostial and proximal circumflex and distal RCA with stent occlusion, preserved left ventricular ejection fraction on angiogram. The patient has recently been evaluated by Dr. King Montiel of Cardiothoracic Surgery services for consideration of coronary artery bypass and grafting. We will continue aspirin, heparin, beta blockers, statins and nitroglycerin. Her last dose of Plavix was on 08/08/2023 and will need a washout prior to surgical intervention. Plans for high risk CABG week of 08/[address] King Montiel. The patient is being transitioned out to CV IMU, pending CABG. 2. Pulmonary edema, related to decompensated diastolic congestive cardiac failure. Cautious use of diuretics. 3. Hypertension. Continue metoprolol and losartan. 4. Hyperlipidemia. Total cholesterol 226, HDL 90, LDL 139, triglycerides 121. Continue atorvastatin 80 mg daily. 5. Hypomagnesemia, replete. 6. Asthma. Continue montelukast. 7. Anxiety, not otherwise specified. Continue lorazepam. 8. Acute exacerbation of likely diastolic congestive heart failure. Diurese as above. 9. Osteoarthritis, avoid nonsteroidals. 10. Chronic kidney disease, stage II. 11. Hypokalemia, replete ADDITIONAL COMMENTS: Plans for high risk CABG week of 08/[address] King Montiel. off of heparin. -- SUBJECTIVE -- HPI: This 88-year-old female, a patient of Dr. Gianna Ambrose, has a past medical history significant for hypertension, hyperlipidemia, asthma, anxiety, chronic bronchitis, and coronary artery disease, status post angioplasty in 2011. A few weeks ago, the patient developed new onset of jaw pain and dyspnea, and noninvasive cardiac workup by Dr. Ambrose including a nuclear stress test showed an ejection fraction of 34% with severe inferolateral and posterolateral ischemia, a change from a previously normal ejection fraction of 55% to 60% in 06/2023. Subsequent coronary angiogram on 07/31/2023 showed severe multivessel coronary artery disease including 80% proximal LAD, 90% ostial and proximal circumflex, heavily calcified RCA with a distal occluded stent, and an ejection fraction during the heart catheterization to be 55%, elevated left ventricular end diastolic pressure at 33. The patient was evaluated by Dr. King Montiel of Cardiothoracic Surgery services on 08/06 and discussions were underway as regards to possible bypass surgery. Since that time, the patient has had increased anxiety about the possibility of undergoing bypass surgery and has not been able to sleep or rest well. On the morning of admission, she developed central chest pressure with radiation to the jaw and worsening shortness of breath. She presented to the [facility] in [place], [place], where troponin was elevated to 300 range and EKG was negative for ST elevation. She was also found to be in fluid overload, started on ACS protocol, heparin, Lasix and transferred to the [facility] for higher level of care. Troponin has trended up 530 and BNP 539, and chest x-ray shows interstitial pulmonary edema/infiltrates. She is being admitted to the intensive care unit for further evaluation and management. PATIENT NARRATIVE: 08/10: No acute events overnight. No significant chest pain or shortness of breath. Anxious. Troponin is trending down. On intravenous heparin, beta-blockers aspirin and statins. Plavix is on hold in case the patient goes for CABG. Cardiology and cardiothoracic surgery services following. Await further recommendations 08/11: No chest pain jaw pain or arm pain. On heparin infusion. Plans for high risk CABG week of 08/[address] King Montile. The patient is being transitioned out to CV IMU, pending CABG. Walked 320 feet with physical therapy 08/12: Denies any chest pain or shortness of breath. No headache or dizziness. No nausea or vomiting. Has chronic constipation. On heparin infusion. Plans for high risk CABG week of 08/[address] King Montiel 08/13: No acute events overnight. No chest pain or shortness of breath. No headache or dizziness. The patient was reluctant to get her blood drawn for the PTT, explained to by the nurses. Agreeable. PTT therapeutic. Potassium low, 2.9, replaced On Lasix 40 mg IV daily. Intake and output are not accurate. Walked about 320 feet with physical therapy. 08/14: No acute events overnight. Just anxious, taking her benzodiazepines. On heparin infusion. On diuretics and electrolyte replacement. Plans for high risk CABG week of 08/[address] King Montiel. 08/15: Heparin stopped by Dr. King Montiel. Surgery most likely 08/17. In general doing okay. No chest pain or shortness of breath. No headache or dizziness. Anxious. 08/16: No acute events. No chest pain or shortness of breath. In general feels all right. Plans for high risk CABG 08/[address] King Montiel -REVIEW OF SYSTEMS- GENERAL: CONSTITUTIONAL: Fatigue and tiredness. No fever or chills. HEENT: Denies any cough, congestion, or runny nose. CARDIOPULMONARY: Reports chest pain and shortness of breath. GASTROINTESTINAL: Reflux. GENITOURINARY: Denies any dysuria or discharge. MUSCULOSKELETAL: Reports joint pains. -- OBJECTIVE -- VITALS (08/15 13:47 - 08/16 13:47): Temperature F: 97.8 Temperature C: 36.5 (36.3 - 36.5) Temperature source: Oral Pulse Rate 84 (70 - 92) Respiratory rate: 23 (18 - 27) Blood pressure: 125/70 (81/47 - 139/80) Blood pressure source: Monitor I/Os (08/15 07:00 - 08/16 07:00): Net 120 Intake 320 Output 200 -EXAM- GENERAL: GENERAL: Elderly female, anxious, not in any acute distress. VITAL SIGNS: oxygen saturation 99% on room air. Weight is 61.3 kilograms. Body mass index 27.3. HEENT: Head is atraumatic. Pupils are reactive to light and accommodation. Extraocular muscles intact. NECK: Supple. No thyromegaly. No JVD. CARDIOVASCULAR: Regular rate and rhythm. LUNGS: Clear to auscultation. ABDOMEN: Soft, nondistended, nontender. No organomegaly. EXTREMITIES: No edema, cyanosis, or clubbing. Pedal pulses palpable. NEUROLOGIC: No focal deficit. -- DATA -- MEDICATIONS DOCUSATE SODIUM 200 MG PO DAILY morphine SULFATE 2 MG IV Q2H PRN DEXTROSE 50%-WATER 25 ML IV ASDIR PRN ALBUTEROL SULFATE 2.5 MG NEB RTQ6H PRN LACTULOSE 30 ML PO BID PRN polyethylene glycoL 3350 1 PKT PO DAILY cloNIDine HCL 0.1 MG PO Q8H PRN LORazepam 0.5 MG PO Q6H PRN HYDROcodone BITARTRATE/APAP 1 TAB PO Q4H PRN ACETAMINOPHEN 650 MG PO Q6H PRN GLUCAGON 1 MG IM ASDIR PRN ONDANSETRON 4 MG PO Q6H PRN NITROGLYCERIN 0.4 MG SL Q5M PRN clonazePAM 0.5 MG PO BID POTASSIUM CHLORIDE 40 MEQ PO DAILY ONDANSETRON HCL/PF 4 MG IV Q6H PRN MONTELUKAST SODIUM 10 MG PO DAILY@1800 FUROSEMIDE 40 MG IV DAILY@0700 ASPIRIN 81 MG PO DAILY bisacodyL 10 MG RECTAL DAILY PRN ATORVASTATIN CALCIUM 80 MG PO BEDTIME METOPROLOL TARTRATE 5 MG IV Q6H PRN HYOSCYAMINE SULFATE 0.125 MG PO DAILY PRN METOPROLOL SUCCINATE 25 MG PO Q12HR LABS CBC W/AUTO DIFF (08/16/23 04:10) WHITE BLOOD CELL 6.7 RED BLOOD CELL 3.74 L HEMOGLOBIN 11.1L L HEMATOCRIT 34.3L L MEAN CELL VOLUME 91.7 MEAN CELL HGB 29.7 MEAN CELL HGB CONCENTRATION 32.4 L RED CELL DISTRIBUTION WIDTH 13.7 PLATELET COUNT 262 MEAN PLATELET VOLUME 9.4 NEUTROPHIL % 59.2 LYMPHOCYTE % 22.4 MONOCYTE % 13.7 H EOSINOPHIL % 3.9 BASOPHIL % 0.7 NEUTROPHIL # 3.98 LYMPHOCYTE # 1.51 MONOCYTE # 0.92 H EOSINOPHIL # 0.26 BASOPHIL # 0.05 -- QUALITY -- -MEDICATIONS- - I attest that the foregoing medication list in the medical record is true, accurate, and complete to the best of my knowledge. -- ATTESTATION -- CARE ACTIVITIES / CARE COORDINATION: - I have reviewed the history and repeated the snyder elements - I have seen and examined this patient - I have reviewed the progress in the clinical course since the last examination - I have discussed the patient's condition with other members of the care team Signed in PatientKeeper by Marianne Mckay MD on 08/16/23 at 14:38 at 1438 ATTENTION *EDITS and/or ADDENDA must be made in Patient Keeper for this note. * * Edits and ammendments created in [facility] are not visible * * in Patient Keeper or the legal medical record (HPF). * [facility] #: [id number] END OF REPORT [facility] 2023-08-16 10:29:00 [facility] ([facility]) Cardiothoracic Surg. Prog Note REPORT #: [id number] REPORT STATUS: Signed DATE: 08/16/23 TIME: 1029 PATIENT: ROCK GOMEZ UNIT #: [id number] ROOM #: P.0307 BED: 1 : 36 AGE: 88 SEX: F ATTEND: Marianne Mckay MD ADM AUTHOR: Frances Aguilar ATTENTION *EDITS and/or ADDENDA must be made in Patient Keeper for this note. * * Edits and ammendments created in [employer] are not visible * * in Patient Keeper or the legal medical record (HPF). * -- ASSESSMENT AND PLAN -- GENERAL ASSESSMENT: Patient is an 88-year-old female with severe multi-vessel CAD not amendable to PCI who was recently evaluated as an outpatient for CABG. Presented to [facility] ED with NSTEMI on 08/09. Awaiting Plavix washout for CABG. Vital signs and labs reviewed. Afebrile, heart rate and blood pressure well-controlled. On room air. No active chest pain or shortness of breath. Patient anxious this morning about upcoming surgery and feels weak. Has been working with PT and OT daily. Preoperative workup completed. Echo with EF 40-44%, moderate MR. Volume status optimized with diuresis. Carotids negative for hemodynamically significant disease. On targeted therapy with aspirin, statin, beta rashi. Plavix has been held since 08/08. Heparin drip has been discontinued. Two family members present at the bedside this morning. Dr. Montiel has discussed indications for CABG, risks, benefits, and possible complications with the patient in detail. STS score 6.7% for isolated CABG. Plan: - Repeat PTT pending. - Continue IS. - PT/OT. - NPO at midnight. - CABG in AM with Dr. Montiel. PLAN DISCUSSED WITH: Patient seen on AM rounds with Dr. Montiel. -STS SCORE- Procedure Type: Isolated CABG PERIOPERATIVE OUTCOMEESTIMATE % Operative Mortality6.76% Morbidity Qxddobrlr16% Stroke1.5% Renal Failure2.65% Reoperation3.05% Prolonged Ventilation7.6% Deep Sternal Wound Infection0.178% Long Hospital Stay (>14 days)8.35% Short Hospital Stay (<6 days)*19.3% - Yes, STS risk calculator score was calculated and discussed with patient/family prior to surgery as documented in the medical record -- SUBJECTIVE -- PATIENT NARATIVE: Sitting on the edge of the bed this morning. Anxious about surgery tomorrow. -- OBJECTIVE -- VITALS (08/15 10:29 - 08/16 10:29): Temperature F: 97.8 Temperature C: 36.5 (36.3 - 36.5) Temperature source: Oral Pulse Rate 84 (70 - 93) Respiratory rate: 23 (16 - 27) Blood pressure: 125/70 (81/47 - 139/80) Blood pressure source: Monitor I/Os (08/15 07:00 - 08/16 07:00): Net 120 Intake 320 Output 200 -EXAM- GENERAL: Well developed, well nourished, in no apparent distress. HEAD: Normocephalic, atraumatic. NECK: Supple, trachea midline. No JVD. CHEST: Grossly normal appearance. LUNGS: Clear bilaterally with normal respiratory effort. HEART: Regular rate and rhythm, normal S1, S2, no murmurs, no rubs, no gallops, no clicks. ABDOMEN: Soft, non-tender, no organomegaly, no masses noted. MUSCULOSKELETAL: No deformity, no scoliosis noted of thoracic or lumbar spine, joint ROM grossly normal, normal gait and station. EXTREMITIES: No clubbing, no cyanosis, no edema. NEUROLOGICAL: No focal deficits, normal coordination, normal muscle strength, normal tone. SKIN: Intact without significant lesions, or rashes. PSYCHIATRIC: Alert and oriented to time, person, place. Normal mood and affect, intact judgment and insight. INDWELLING MUNOZ: No -- DATA -- MEDICATIONS DOCUSATE SODIUM 200 MG PO DAILY morphine SULFATE 2 MG IV Q2H PRN DEXTROSE 50%-WATER 25 ML IV ASDIR PRN ALBUTEROL SULFATE 2.5 MG NEB RTQ6H PRN LACTULOSE 30 ML PO BID PRN polyethylene glycoL 3350 1 PKT PO DAILY cloNIDine HCL 0.1 MG PO Q8H PRN LORazepam 0.5 MG PO Q6H PRN HYDROcodone BITARTRATE/APAP 1 TAB PO Q4H PRN ACETAMINOPHEN 650 MG PO Q6H PRN GLUCAGON 1 MG IM ASDIR PRN ONDANSETRON 4 MG PO Q6H PRN NITROGLYCERIN 0.4 MG SL Q5M PRN clonazePAM 0.5 MG PO BID POTASSIUM CHLORIDE 40 MEQ PO DAILY ONDANSETRON HCL/PF 4 MG IV Q6H PRN MONTELUKAST SODIUM 10 MG PO DAILY@1800 FUROSEMIDE 40 MG IV DAILY@0700 ASPIRIN 81 MG PO DAILY bisacodyL 10 MG RECTAL DAILY PRN ATORVASTATIN CALCIUM 80 MG PO BEDTIME METOPROLOL TARTRATE 5 MG IV Q6H PRN HYOSCYAMINE SULFATE 0.125 MG PO DAILY PRN METOPROLOL SUCCINATE 25 MG PO Q12HR LABS CBC W/AUTO DIFF (08/16/23 04:10) WHITE BLOOD CELL 6.7 RED BLOOD CELL 3.74 L HEMOGLOBIN 11.1L L HEMATOCRIT 34.3L L MEAN CELL VOLUME 91.7 MEAN CELL HGB 29.7 MEAN CELL HGB CONCENTRATION 32.4 L RED CELL DISTRIBUTION WIDTH 13.7 PLATELET COUNT 262 MEAN PLATELET VOLUME 9.4 NEUTROPHIL % 59.2 LYMPHOCYTE % 22.4 MONOCYTE % 13.7 H EOSINOPHIL % 3.9 BASOPHIL % 0.7 NEUTROPHIL # 3.98 LYMPHOCYTE # 1.51 MONOCYTE # 0.92 H EOSINOPHIL # 0.26 BASOPHIL # 0.05 -- QUALITY -- -MEDICATIONS- - I attest that the foregoing medication list in the medical record is true, accurate, and complete to the best of my knowledge. -VTE PROPHYLAXIS -GENERAL- No CONTRAINDICATIONS patient scheduled for surgery -- ATTESTATION -- CARE ACTIVITIES / CARE COORDINATION: - I have reviewed the history and repeated the snyder elements - I have seen and examined this patient - I have reviewed the progress in the clinical course since the last examination - I have discussed the patient's condition with other members of the care team Signed in PatientKeeper by Frances Aguilar on 08/16/23 at 15:56 Cosigned by KING MONTIEL MD on 08/18/23 at 06:49 at 0649 at 0649 ATTENTION *EDITS and/or ADDENDA must be made in Patient Keeper for this note. * * Edits and ammendments created in [employer] are not visible * * in Patient Keeper or the legal medical record (HPF). * RPT #: [id number] END OF REPORT [facility] 2023-08-16 08:04:00 [facility] ([facility]) Cardiology Progress Notes REPORT #: [id number] REPORT STATUS: Signed DATE: 08/16/23 TIME: 0804 PATIENT: ROCK GOMEZ UNIT #: [id number] ROOM #: P.0405 BED: A : 36 AGE: 88 SEX: F ATTEND: Marianne Mckay MD ADM AUTHOR: Funmilayo Ibarra ATTENTION *EDITS and/or ADDENDA must be made in Patient Keeper for this note. * * Edits and ammendments created in [employer] are not visible * * in Patient Keeper or the legal medical record (HPF). * -- CO-SIGNATURE -- COMMENTS: The patient was seen on rounds with JOSE Youssef. The patient has no complaints Examination demonstrates normal heart sounds and clear lung hwang. Impression and plan The patient is an 88-year-old female with ischemic cardiomyopathy and an EF of 35% which is recently dropped in the last couple of months with multivessel coronary artery disease. Fortunately the patient has outstanding targets and despite her age and frailty we feel as a team that she would benefit from bypass surgery. The patient is currently on good guideline directed medical therapy and will undergo bypass surgery likely tomorrow. She will be kept n.p.o. after midnight. Signed in PatientKeeper by YUE GARZA MD on 09/19/23 at 16:48 -- ASSESSMENT AND PLAN -- PROBLEMS: 1: NSTEMI (non-ST elevated myocardial infarction) A/P: The patient is an 88-year-old female (patient of Dr. Gianna Ambrose) has a PMHx of coronary artery disease (s/p PCI with 3 ALEC), family history of coronary artery disease, carotid artery disease, hypertension, hyperlipidemia, h/o nicotine use, asthma, chronic bronchitis, anxiety. She has been having chest pressure radiating to her jaw and shortness of breath for the past 3 weeks. She was evaluated by her medical clinic manager, had stress test on 07/28/2023 what was abnormal, showed cardiomyopathy, an EF of 34%, severe inferolateral, posterolateral ischemia. Echocardiogram (06/2023) showed an EF 55-60%, moderate MR. She had coronary angiogram on 07/31/23 and showed three vessel coronary artery disease, torturous aorta with small abdominal aortic aneurysm. elevated LVEDP that is not amenable for PCI. She was evaluated by CV surgery, Dr. Monitel, for CABG. She presented at an outside hospital with complaint of chest pain radiating to her left jaw, diaphoresis and she was ruled in NSTEMI. She was transferred here to [facility] for higher level of care. Chest x-ray showed interstitial and basilar airspace edema/infiltrates, cardiomegaly. Blood work showed troponin of 534.3, BNP 539, Mg 1.3. She was transferred to CVICU for closer observation and is being transferred out to CVIMU now. - Echo completed - Pre-op work-up for CABG per CV surgery - Continue aspirin, atorvastatin 80mg daily, metoprolol XL 25mg BID - Discontinue losartan given upcoming surgery - On IV furosemide 40mg daily - Clopidogrel discontinued, last dose taken on 08/08/23 per the patient - On PT/OT/IS - CV surgery planning CABG tomorrow, Wednesday (08/17). NPO after midnight -- SUBJECTIVE -- CHIEF COMPLAINT: NSTEMI PATIENT NARRATIVE: Sitting on the side of the bed, she is anxious about the surgery. Denies complaints today. No acute events overnight. -REVIEW OF SYSTEMS- GENERAL: Negative for fever, malaise, fatigue. EYES: Negative for blurry vision. No diplopia. EARS/NOSE/THROAT: Negative for sore throat. No otalgia. No rhinorrhea. RESPIRATORY: Negative for dyspnea or wheeze. No cough. CARDIOVASCULAR: Negative for chest pain or palpitations. No extremity swelling. GASTROINTESTINAL: Negative for abdominal pain or nausea. No emesis. No diarrhea. GENITOURINARY: Negative for dysuria, frequency, or urgency. No gross hematuria. MUSCULOSKELETAL: Negative for joint stiffness, pain, or arthralgias. SKIN: Negative for rashes. No pruritus. NEUROLOGICAL: Negative for headache. No vertigo. Denies paresthesias. PSYCHIATRIC: Negative for specific complaints. -- OBJECTIVE -- VITALS (08/15 07:13 - 08/16 07:13): Temperature C: 36.3 (36.3 - 36.5) Temperature source: Oral Pulse Rate 74 (73 - 100) Respiratory rate: 20 (13 - 31) Blood pressure: 102/55 (81/47 - 139/80) Blood pressure source: Monitor I/Os (08/15 07:00 - 08/16 07:00): Net 120 Intake 320 Output 200 -EXAM- OTHER: Constitutional: Well developed, well nourished patient, in no acute distress. Derm/Integumentary: Warm and dry with no rashes, sores, or lesions. HEENT: Eyes-sclera clear and white, symmetrical w/ no lag. ENT - Palate and gums pink, mucosa moist, no pallor/cyanosis. Neck: supple with no masses, no thyromegaly, No JVD. Respiratory: Clear to auscultation. Heart: S1S2+, Regular Rate and Rhythm, No murmurs, rubs, or gallops. Gastrointestinal: + Bowel Sounds all quadrants. Soft, nontender with no masses or organomegaly; No HJR. Musculoskeletal: Equal strength in all extremities. No weakness. Neurology: Alert and oriented X 3. Calm, cooperative affect. No focal deficits. Extremities: + peripheral pulses. No clubbing, cyanosis. No lower extremity edema. -- DATA -- MEDICATIONS morphine SULFATE 2 MG IV Q2H PRN DEXTROSE 50%-WATER 25 ML IV ASDIR PRN ALBUTEROL SULFATE 2.5 MG NEB RTQ6H PRN LACTULOSE 30 ML PO BID PRN polyethylene glycoL 3350 1 PKT PO DAILY NITROGLYCERIN 0.4 MG SL Q5M PRN ONDANSETRON HCL/PF 4 MG IV Q6H PRN FUROSEMIDE 40 MG IV DAILY@0700 ASPIRIN 81 MG PO DAILY METOPROLOL TARTRATE 5 MG IV Q6H PRN HYOSCYAMINE SULFATE 0.125 MG PO DAILY PRN DOCUSATE SODIUM 200 MG PO DAILY cloNIDine HCL 0.1 MG PO Q8H PRN LORazepam 0.5 MG PO Q6H PRN HYDROcodone BITARTRATE/APAP 1 TAB PO Q4H PRN ACETAMINOPHEN 650 MG PO Q6H PRN GLUCAGON 1 MG IM ASDIR PRN ONDANSETRON 4 MG PO Q6H PRN clonazePAM 0.5 MG PO BID POTASSIUM CHLORIDE 40 MEQ PO DAILY MONTELUKAST SODIUM 10 MG PO DAILY@1800 bisacodyL 10 MG RECTAL DAILY PRN ATORVASTATIN CALCIUM 80 MG PO BEDTIME METOPROLOL SUCCINATE 25 MG PO Q12HR LABS CBC W/AUTO DIFF (08/16/23 04:10) WHITE BLOOD CELL 6.7 RED BLOOD CELL 3.74 L HEMOGLOBIN 11.1L L HEMATOCRIT 34.3L L MEAN CELL VOLUME 91.7 MEAN CELL HGB 29.7 MEAN CELL HGB CONCENTRATION 32.4 L RED CELL DISTRIBUTION WIDTH 13.7 PLATELET COUNT 262 MEAN PLATELET VOLUME 9.4 NEUTROPHIL % 59.2 LYMPHOCYTE % 22.4 MONOCYTE % 13.7 H EOSINOPHIL % 3.9 BASOPHIL % 0.7 NEUTROPHIL # 3.98 LYMPHOCYTE # 1.51 MONOCYTE # 0.92 H EOSINOPHIL # 0.26 BASOPHIL # 0.05 -- ATTESTATION -- CARE ACTIVITIES / CARE COORDINATION: - I have reviewed the history and repeated the snyder elements - I have seen and examined this patient - I have reviewed the progress in the clinical course since the last examination - I have discussed the patient's condition with other members of the care team ADDITIONAL DETAIL: Plan of care discussed with Dr. Yue Garza Signed in PatientKeeper by FUNMILAYO IBARRA on 08/16/23 at 22:44 Cosigned by YUE GARZA MD on 09/19/23 at 16:48 at 1648 at 1648 ATTENTION *EDITS and/or ADDENDA must be made in Patient Keeper for this note. * * Edits and ammendments created in [employer] are not visible * * in Patient Keeper or the legal medical record (HPF). * RPT #: [id number] END OF REPORT [facility] 2023-08-15 13:30:00 [facility] ([facility]) Hospitalist Progress Note REPORT #: [id number] REPORT STATUS: Signed DATE: 08/15/23 TIME: 1330 PATIENT: ROCK GOMEZ UNIT #: [id number] ROOM #: P.[id number] BED: A : 36 AGE: 88 SEX: F ATTEND: Marianne Mckay MD ADM AUTHOR: Marianne Mckay MD ATTENTION *EDITS and/or ADDENDA must be made in Patient Keeper for this note. * * Edits and ammendments created in [employer] are not visible * * in Patient Keeper or the legal medical record (HPF). * -- ASSESSMENT AND PLAN -- GENERAL ASSESSMENT: ASSESSMENT AND PLAN: 1. Non-ST segment elevation myocardial infarction in a patient with a known history of severe multivessel coronary artery disease including proximal 80% LAD, 90% ostial and proximal circumflex and distal RCA with stent occlusion, preserved left ventricular ejection fraction on angiogram. The patient has recently been evaluated by Dr. King Montiel of Cardiothoracic Surgery services for consideration of coronary artery bypass and grafting. We will continue aspirin, heparin, beta blockers, statins and nitroglycerin. Her last dose of Plavix was on 08/08/2023 and will need a washout prior to surgical intervention. Plans for high risk CABG week of 08/[address] King Montiel. The patient is being transitioned out to CV IMU, pending CABG. 2. Pulmonary edema, related to decompensated diastolic congestive cardiac failure. Cautious use of diuretics. 3. Hypertension. Continue metoprolol and losartan. 4. Hyperlipidemia. Total cholesterol 226, HDL 90, LDL 139, triglycerides 121. Continue atorvastatin 80 mg daily. 5. Hypomagnesemia, replete. 6. Asthma. Continue montelukast. 7. Anxiety, not otherwise specified. Continue lorazepam. 8. Acute exacerbation of likely diastolic congestive heart failure. Diurese as above. 9. Osteoarthritis, avoid nonsteroidals. 10. Chronic kidney disease, stage II. 11. Hypokalemia, replete ADDITIONAL COMMENTS: Plans for high risk CABG week of 08/[address] King Montiel. off of heparin. -- SUBJECTIVE -- HPI: This 88-year-old female, a patient of Dr. Gianna Ambrose, has a past medical history significant for hypertension, hyperlipidemia, asthma, anxiety, chronic bronchitis, and coronary artery disease, status post angioplasty in 2011. A few weeks ago, the patient developed new onset of jaw pain and dyspnea, and noninvasive cardiac workup by Dr. Ambrose including a nuclear stress test showed an ejection fraction of 34% with severe inferolateral and posterolateral ischemia, a change from a previously normal ejection fraction of 55% to 60% in 06/2023. Subsequent coronary angiogram on 07/31/2023 showed severe multivessel coronary artery disease including 80% proximal LAD, 90% ostial and proximal circumflex, heavily calcified RCA with a distal occluded stent, and an ejection fraction during the heart catheterization to be 55%, elevated left ventricular end diastolic pressure at 33. The patient was evaluated by Dr. King Montiel of Cardiothoracic Surgery services on 08/06 and discussions were underway as regards to possible bypass surgery. Since that time, the patient has had increased anxiety about the possibility of undergoing bypass surgery and has not been able to sleep or rest well. On the morning of admission, she developed central chest pressure with radiation to the jaw and worsening shortness of breath. She presented to the [facility] in [place], [place], where troponin was elevated to 300 range and EKG was negative for ST elevation. She was also found to be in fluid overload, started on ACS protocol, heparin, Lasix and transferred to the [facility] for higher level of care. Troponin has trended up 530 and BNP 539, and chest x-ray shows interstitial pulmonary edema/infiltrates. She is being admitted to the intensive care unit for further evaluation and management. PATIENT NARRATIVE: 08/10: No acute events overnight. No significant chest pain or shortness of breath. Anxious. Troponin is trending down. On intravenous heparin, beta-blockers aspirin and statins. Plavix is on hold in case the patient goes for CABG. Cardiology and cardiothoracic surgery services following. Await further recommendations 08/11: No chest pain jaw pain or arm pain. On heparin infusion. Plans for high risk CABG week of 08/[address] King Montiel. The patient is being transitioned out to CV IMU, pending CABG. Walked 320 feet with physical therapy 08/12: Denies any chest pain or shortness of breath. No headache or dizziness. No nausea or vomiting. Has chronic constipation. On heparin infusion. Plans for high risk CABG week of 08/[address] King Montiel 08/13: No acute events overnight. No chest pain or shortness of breath. No headache or dizziness. The patient was reluctant to get her blood drawn for the PTT, explained to by the nurses. Agreeable. PTT therapeutic. Potassium low, 2.9, replaced On Lasix 40 mg IV daily. Intake and output are not accurate. Walked about 320 feet with physical therapy. 08/14: No acute events overnight. Just anxious, taking her benzodiazepines. On heparin infusion. On diuretics and electrolyte replacement. Plans for high risk CABG week of 08/[address] King Montiel. 08/15: Heparin stopped by Dr. King Montiel. Surgery most likely 08/17. In general doing okay. No chest pain or shortness of breath. No headache or dizziness. Anxious. -REVIEW OF SYSTEMS- GENERAL: CONSTITUTIONAL: Fatigue and tiredness. No fever or chills. HEENT: Denies any cough, congestion, or runny nose. CARDIOPULMONARY: Reports chest pain and shortness of breath. GASTROINTESTINAL: Reflux. GENITOURINARY: Denies any dysuria or discharge. MUSCULOSKELETAL: Reports joint pains. -- OBJECTIVE -- VITALS (08/14 13:30 - 08/15 13:30): Temperature C: 36.4 (36.3 - 36.8) Temperature source: Oral Pulse Rate 83 (74 - 100) Respiratory rate: 16 (13 - 35) Blood pressure: 116/56 (84/51 - 139/82) Blood pressure source: Monitor I/Os (08/14 07:00 - 08/15 07:00): Net -491.00 Intake 559.00 Output 1,050 -EXAM- GENERAL: GENERAL: Elderly female, anxious, not in any acute distress. VITAL SIGNS: oxygen saturation 99% on room air. Weight is 61.3 kilograms. Body mass index 27.3. HEENT: Head is atraumatic. Pupils are reactive to light and accommodation. Extraocular muscles intact. NECK: Supple. No thyromegaly. No JVD. CARDIOVASCULAR: Regular rate and rhythm. LUNGS: Clear to auscultation. ABDOMEN: Soft, nondistended, nontender. No organomegaly. EXTREMITIES: No edema, cyanosis, or clubbing. Pedal pulses palpable. NEUROLOGIC: No focal deficit. -- DATA -- MEDICATIONS morphine SULFATE 2 MG IV Q2H PRN DEXTROSE 50%-WATER 25 ML IV ASDIR PRN ALBUTEROL SULFATE 2.5 MG NEB RTQ6H PRN LACTULOSE 30 ML PO BID PRN polyethylene glycoL 3350 1 PKT PO DAILY NITROGLYCERIN 0.4 MG SL Q5M PRN ONDANSETRON HCL/PF 4 MG IV Q6H PRN FUROSEMIDE 40 MG IV DAILY@0700 ASPIRIN 81 MG PO DAILY METOPROLOL TARTRATE 5 MG IV Q6H PRN HYOSCYAMINE SULFATE 0.125 MG PO DAILY PRN DOCUSATE SODIUM 200 MG PO DAILY cloNIDine HCL 0.1 MG PO Q8H PRN LORazepam 0.5 MG PO Q6H PRN HYDROcodone BITARTRATE/APAP 1 TAB PO Q4H PRN ACETAMINOPHEN 650 MG PO Q6H PRN GLUCAGON 1 MG IM ASDIR PRN ONDANSETRON 4 MG PO Q6H PRN clonazePAM 0.5 MG PO BID POTASSIUM CHLORIDE 40 MEQ PO DAILY MONTELUKAST SODIUM 10 MG PO DAILY@1800 bisacodyL 10 MG RECTAL DAILY PRN ATORVASTATIN CALCIUM 80 MG PO BEDTIME METOPROLOL SUCCINATE 25 MG PO Q12HR LABS PTT (08/15/23 05:59) THROMBOPLASTIN TIME PARTIAL 113.3 *H CBC W/AUTO DIFF (08/15/23 05:29) WHITE BLOOD CELL 6.8 RED BLOOD CELL 4.09 L HEMOGLOBIN 12.0 HEMATOCRIT 37.8 MEAN CELL VOLUME 92.4 MEAN CELL HGB 29.3 MEAN CELL HGB CONCENTRATION 31.7 L RED CELL DISTRIBUTION WIDTH 14.0 PLATELET COUNT 293 MEAN PLATELET VOLUME 9.4 NEUTROPHIL % 54.3 LYMPHOCYTE % 30.0 MONOCYTE % 11.3 H EOSINOPHIL % 3.4 BASOPHIL % 0.7 NEUTROPHIL # 3.68 LYMPHOCYTE # 2.04 MONOCYTE # 0.77 EOSINOPHIL # 0.23 BASOPHIL # 0.05 PTT (08/15/23 03:47) THROMBOPLASTIN TIME PARTIAL 121.4 D*H PTT (08/14/23 19:33) THROMBOPLASTIN TIME PARTIAL 56.6 D H -- QUALITY -- -MEDICATIONS- - I attest that the foregoing medication list in the medical record is true, accurate, and complete to the best of my knowledge. -- ATTESTATION -- CARE ACTIVITIES / CARE COORDINATION: - I have reviewed the history and repeated the snyder elements - I have seen and examined this patient - I have reviewed the progress in the clinical course since the last examination - I have discussed the patient's condition with other members of the care team Signed in PatientKeeper by Marianne Mckay MD on 08/15/23 at 13:31 at 1331 ATTENTION *EDITS and/or ADDENDA must be made in Patient Keeper for this note. * * Edits and ammendments created in [employer] are not visible * * in Patient Keeper or the legal medical record (HPF). * RPT #: [id number] END OF REPORT [facility] 2023-08-15 08:13:00 [facility] ([facility]) Cardiology Progress Notes REPORT #: [id number] REPORT STATUS: Signed DATE: 08/15/23 TIME: 812 PATIENT: ROCK GOMEZ UNIT #: [id number] ROOM #: P.0405 BED: A : 36 AGE: 88 SEX: F ATTEND: Marianne Mckay MD ADM AUTHOR: Funmilayo Ibarra ATTENTION *EDITS and/or ADDENDA must be made in Patient Keeper for this note. * * Edits and ammendments created in [employer] are not visible * * in Patient Keeper or the legal medical record (HPF). * -- CO-SIGNATURE -- COMMENTS: I have personally seen and examined the patient independently, and reviewed the patient's history, exam, and all cardiac and laboratory data on 08/15/23. I agree with the history, physical, and the assessment and plan as outlined by Funmilayo Ross. Ms. Gomez is a 88-year-old female with past medical history of CAD, hypertension, hyperlipidemia, smoking admitted with worsening chest pain and shortness of breath, three-vessel CAD on coronary angiogram. The patient is now admitted with NSTEMI and undergoing evaluation for CABG. surgery is planned for tomorrow. -Continue optimization of heart failure medications/gentle IV diuresis to volume optimize the patient. -Continue with aspirin, high intensity statin and beta-blockers. Signed in PatientKeeper by HERSON CORONA MD on 09/15/23 at 03:29 -- ADDITIONAL COMMENTS -- COMMENTS: Correction: CV surgery planning CABG on Wednesday (08/17) Signed in PatientKeeper by FUNMILAYO IBARRA on 08/15/23 at 19:10 -- ASSESSMENT AND PLAN -- PROBLEMS: 1: NSTEMI (non-ST elevated myocardial infarction) A/P: The patient is an 88-year-old female (patient of Dr. Gianna Ambrose) has a PMHx of coronary artery disease (s/p PCI with 3 ALEC), family history of coronary artery disease, carotid artery disease, hypertension, hyperlipidemia, h/o nicotine use, asthma, chronic bronchitis, anxiety. She has been having chest pressure radiating to her jaw and shortness of breath for the past 3 weeks. She was evaluated by her medical clinic manager, had stress test on 07/28/2023 what was abnormal, showed cardiomyopathy, an EF of 34%, severe inferolateral, posterolateral ischemia. Echocardiogram (06/2023) showed an EF 55-60%, moderate MR. She had coronary angiogram on 07/31/23 and showed three vessel coronary artery disease, torturous aorta with small abdominal aortic aneurysm. elevated LVEDP that is not amenable for PCI. She was evaluated by CV surgery, Dr. Motniel, for CABG. She presented at an outside hospital with complaint of chest pain radiating to her left jaw, diaphoresis and she was ruled in NSTEMI. She was transferred here to [facility] for higher level of care. Chest x-ray showed interstitial and basilar airspace edema/infiltrates, cardiomegaly. Blood work showed troponin of 534.3, BNP 539, Mg 1.3. She was transferred to CVICU for closer observation and is being transferred out to CVIMU now. - Discontinue IV heparin per CV surgery - Echo completed - Pre-op work-up for CABG per CV surgery - On aspirin, atorvastatin 80mg daily, metoprolol XL 25mg BID - Discontinue losartan given upcoming surgery - Continue IV furosemide 40mg daily - Clopidogrel discontinued, last dose taken on 08/08/23 per the patient - On PT/OT/IS - CV surgery planning CABG on Wednesday (08/16) -- SUBJECTIVE -- CHIEF COMPLAINT: NSTEMI PATIENT NARRATIVE: Out of bed and in chair. She denies chest pain, shortness of breath, palpitations. Seen by Dr. Montiel and Dr. Herson Corona. No acute events overnight. -REVIEW OF SYSTEMS- GENERAL: Negative for fever, malaise, fatigue. EYES: Negative for blurry vision. No diplopia. EARS/NOSE/THROAT: Negative for sore throat. No otalgia. No rhinorrhea. RESPIRATORY: Negative for dyspnea or wheeze. No cough. CARDIOVASCULAR: Negative for chest pain or palpitations. No extremity swelling. GASTROINTESTINAL: Negative for abdominal pain or nausea. No emesis. No diarrhea. GENITOURINARY: Negative for dysuria, frequency, or urgency. No gross hematuria. MUSCULOSKELETAL: Negative for joint stiffness, pain, or arthralgias. SKIN: Negative for rashes. No pruritus. NEUROLOGICAL: Negative for headache. No vertigo. Denies paresthesias. PSYCHIATRIC: Negative for specific complaints. -- OBJECTIVE -- VITALS (08/14 07:13 - 08/15 07:13): Temperature C: 36.8 (36.3 - 36.8) Pulse Rate 76 (74 - 98) Respiratory rate: 19 (19 - 35) Blood pressure: 97/54 (84/51 - 146/82) Blood pressure source: Monitor I/Os (08/14 07:00 - 08/15 07:00): Net -491.00 Intake 559.00 Output 1,050 -EXAM- OTHER: Constitutional: Well developed, well nourished patient, in no acute distress. Derm/Integumentary: Warm and dry with no rashes, sores, or lesions. HEENT: Eyes-sclera clear and white, symmetrical w/ no lag. ENT - Palate and gums pink, mucosa moist, no pallor/cyanosis. Neck: supple with no masses, no thyromegaly, No JVD. Respiratory: Clear to auscultation. Heart: S1S2+, Regular Rate and Rhythm, No murmurs, rubs, or gallops. Gastrointestinal: + Bowel Sounds all quadrants. Soft, nontender with no masses or organomegaly; No HJR. Musculoskeletal: Equal strength in all extremities. No weakness. Neurology: Alert and oriented X 3. Calm, cooperative affect. No focal deficits. Extremities: + peripheral pulses. No clubbing, cyanosis. No lower extremity edema. -- DATA -- MEDICATIONS morphine SULFATE 2 MG IV Q2H PRN DEXTROSE 50%-WATER 25 ML IV ASDIR PRN ALBUTEROL SULFATE 2.5 MG NEB RTQ6H PRN LACTULOSE 30 ML PO BID PRN polyethylene glycoL 3350 1 PKT PO DAILY HEPARIN SODIUM,PORCINE 5000 UNIT IV ASDIR PRN NITROGLYCERIN 0.4 MG SL Q5M PRN ONDANSETRON HCL/PF 4 MG IV Q6H PRN FUROSEMIDE 40 MG IV DAILY@0700 ASPIRIN 81 MG PO DAILY METOPROLOL TARTRATE 5 MG IV Q6H PRN HYOSCYAMINE SULFATE 0.125 MG PO DAILY PRN DOCUSATE SODIUM 200 MG PO DAILY cloNIDine HCL 0.1 MG PO Q8H PRN LORazepam 0.5 MG PO Q6H PRN HYDROcodone BITARTRATE/APAP 1 TAB PO Q4H PRN ACETAMINOPHEN 650 MG PO Q6H PRN GLUCAGON 1 MG IM ASDIR PRN ONDANSETRON 4 MG PO Q6H PRN clonazePAM 0.5 MG PO BID POTASSIUM CHLORIDE 40 MEQ PO DAILY MONTELUKAST SODIUM 10 MG PO DAILY@1800 HEPARIN SODIUM,PORCINE 2500 UNIT IV ASDIR PRN bisacodyL 10 MG RECTAL DAILY PRN HEPARIN PHARMACY TO MONITOR 1 EACH IV ASDIR ATORVASTATIN CALCIUM 80 MG PO BEDTIME HEPARIN/SOD CHLOR 0.45% 11388 UNITS IV TITRATE METOPROLOL SUCCINATE 25 MG PO Q12HR SODIUM CHLORIDE 0.9% 1000 ML IV .Q24H LABS PTT (08/15/23 05:59) THROMBOPLASTIN TIME PARTIAL 113.3 *H CBC W/AUTO DIFF (08/15/23 05:29) WHITE BLOOD CELL 6.8 RED BLOOD CELL 4.09 L HEMOGLOBIN 12.0 HEMATOCRIT 37.8 MEAN CELL VOLUME 92.4 MEAN CELL HGB 29.3 MEAN CELL HGB CONCENTRATION 31.7 L RED CELL DISTRIBUTION WIDTH 14.0 PLATELET COUNT 293 MEAN PLATELET VOLUME 9.4 NEUTROPHIL % 54.3 LYMPHOCYTE % 30.0 MONOCYTE % 11.3 H EOSINOPHIL % 3.4 BASOPHIL % 0.7 NEUTROPHIL # 3.68 LYMPHOCYTE # 2.04 MONOCYTE # 0.77 EOSINOPHIL # 0.23 BASOPHIL # 0.05 PTT (08/15/23 03:47) THROMBOPLASTIN TIME PARTIAL 121.4 D*H PTT (08/14/23 19:33) THROMBOPLASTIN TIME PARTIAL 56.6 D H PTT (08/14/23 13:23) THROMBOPLASTIN TIME PARTIAL 71.2 D H -- ATTESTATION -- CARE ACTIVITIES / CARE COORDINATION: - I have reviewed the history and repeated the snyder elements - I have seen and examined this patient - I have reviewed the progress in the clinical course since the last examination - I have discussed the patient's condition with other members of the care team ADDITIONAL DETAIL: Plan of care discussed with Dr. Herson Corona Signed in PatientKeeper by FUNIMLAYO IBARRA on 08/15/23 at 19:05 Cosigned by HERSON CORONA MD on 09/15/23 at 03:29 at 0329 at 0329 ATTENTION *EDITS and/or ADDENDA must be made in Patient Keeper for this note. * * Edits and ammendments created in [employer] are not visible * * in Patient Keeper or the legal medical record ([facility]). * RPT #: [id number] END OF REPORT [facility] 2023-08-14 15:09:00 [facility] ([facility]) Hospitalist Progress Note REPORT #: [id number] REPORT STATUS: Signed DATE: 08/14/23 TIME: 1509 PATIENT: ROCK GOMEZ UNIT #: [id number] ROOM #: P.0405 BED: A : 36 AGE: 88 SEX: F ATTEND: Marianne Mckay MD ADM AUTHOR: Marianne Mckay MD ATTENTION *EDITS and/or ADDENDA must be made in Patient Keeper for this note. * * Edits and ammendments created in [employer] are not visible * * in Patient Keeper or the legal medical record ([facility]). * -- ASSESSMENT AND PLAN -- GENERAL ASSESSMENT: ASSESSMENT AND PLAN: 1. Non-ST segment elevation myocardial infarction in a patient with a known history of severe multivessel coronary artery disease including proximal 80% LAD, 90% ostial and proximal circumflex and distal RCA with stent occlusion, preserved left ventricular ejection fraction on angiogram. The patient has recently been evaluated by Dr. King Montiel of Cardiothoracic Surgery services for consideration of coronary artery bypass and grafting. We will continue aspirin, heparin, beta blockers, statins and nitroglycerin. Her last dose of Plavix was on 08/08/2023 and will need a washout prior to surgical intervention. Plans for high risk CABG week of 08/[address] King Montiel. The patient is being transitioned out to CV IMU, pending CABG. 2. Pulmonary edema, related to decompensated diastolic congestive cardiac failure. Cautious use of diuretics. 3. Hypertension. Continue metoprolol and losartan. 4. Hyperlipidemia. Total cholesterol 226, HDL 90, LDL 139, triglycerides 121. Continue atorvastatin 80 mg daily. 5. Hypomagnesemia, replete. 6. Asthma. Continue montelukast. 7. Anxiety, not otherwise specified. Continue lorazepam. 8. Acute exacerbation of likely diastolic congestive heart failure. Diurese as above. 9. Osteoarthritis, avoid nonsteroidals. 10. Chronic kidney disease, stage II. 11. Hypokalemia, replete ADDITIONAL COMMENTS: Plans for high risk CABG week of 08/[address] King Montiel. Continue heparin, GDMT. -- SUBJECTIVE -- HPI: This 88-year-old female, a patient of Dr. Gianna Ambrose, has a past medical history significant for hypertension, hyperlipidemia, asthma, anxiety, chronic bronchitis, and coronary artery disease, status post angioplasty in 2011. A few weeks ago, the patient developed new onset of jaw pain and dyspnea, and noninvasive cardiac workup by Dr. Ambrose including a nuclear stress test showed an ejection fraction of 34% with severe inferolateral and posterolateral ischemia, a change from a previously normal ejection fraction of 55% to 60% in 06/2023. Subsequent coronary angiogram on 07/31/2023 showed severe multivessel coronary artery disease including 80% proximal LAD, 90% ostial and proximal circumflex, heavily calcified RCA with a distal occluded stent, and an ejection fraction during the heart catheterization to be 55%, elevated left ventricular end diastolic pressure at 33. The patient was evaluated by Dr. King Montiel of Cardiothoracic Surgery services on 08/06 and discussions were underway as regards to possible bypass surgery. Since that time, the patient has had increased anxiety about the possibility of undergoing bypass surgery and has not been able to sleep or rest well. On the morning of admission, she developed central chest pressure with radiation to the jaw and worsening shortness of breath. She presented to the [facility] in [place], [place], where troponin was elevated to 300 range and EKG was negative for ST elevation. She was also found to be in fluid overload, started on ACS protocol, heparin, Lasix and transferred to the [facility] for higher level of care. Troponin has trended up 530 and BNP 539, and chest x-ray shows interstitial pulmonary edema/infiltrates. She is being admitted to the intensive care unit for further evaluation and management. PATIENT NARRATIVE: 08/10: No acute events overnight. No significant chest pain or shortness of breath. Anxious. Troponin is trending down. On intravenous heparin, beta-blockers aspirin and statins. Plavix is on hold in case the patient goes for CABG. Cardiology and cardiothoracic surgery services following. Await further recommendations 08/11: No chest pain jaw pain or arm pain. On heparin infusion. Plans for high risk CABG week of 08/[address] King Montiel. The patient is being transitioned out to CV IMU, pending CABG. Walked 320 feet with physical therapy 08/12: Denies any chest pain or shortness of breath. No headache or dizziness. No nausea or vomiting. Has chronic constipation. On heparin infusion. Plans for high risk CABG week of 08/[address] King Montiel 08/13: No acute events overnight. No chest pain or shortness of breath. No headache or dizziness. The patient was reluctant to get her blood drawn for the PTT, explained to by the nurses. Agreeable. PTT therapeutic. Potassium low, 2.9, replaced On Lasix 40 mg IV daily. Intake and output are not accurate. Walked about 320 feet with physical therapy. 08/14: No acute events overnight. Just anxious, taking her benzodiazepines. On heparin infusion. On diuretics and electrolyte replacement. Plans for high risk CABG week of 08/[address] King Montiel. -REVIEW OF SYSTEMS- GENERAL: CONSTITUTIONAL: Fatigue and tiredness. No fever or chills. HEENT: Denies any cough, congestion, or runny nose. CARDIOPULMONARY: Reports chest pain and shortness of breath. GASTROINTESTINAL: Reflux. GENITOURINARY: Denies any dysuria or discharge. MUSCULOSKELETAL: Reports joint pains. -- OBJECTIVE -- VITALS (08/13 15:09 - 08/14 15:09): Temperature C: 36.5 (36.4 - 36.8) Pulse Rate 84 (71 - 94) Respiratory rate: 25 (19 - 34) Blood pressure: 118/73 (85/50 - 127/79) Blood pressure source: Monitor I/Os (08/13 07:00 - 08/14 07:00): Net -737.20 Intake 712.80 Output 1,450 -EXAM- GENERAL: GENERAL: Elderly female, anxious, not in any acute distress. VITAL SIGNS: oxygen saturation 99% on room air. Weight is 61.3 kilograms. Body mass index 27.3. HEENT: Head is atraumatic. Pupils are reactive to light and accommodation. Extraocular muscles intact. NECK: Supple. No thyromegaly. No JVD. CARDIOVASCULAR: Regular rate and rhythm. LUNGS: Clear to auscultation. ABDOMEN: Soft, nondistended, nontender. No organomegaly. EXTREMITIES: No edema, cyanosis, or clubbing. Pedal pulses palpable. NEUROLOGIC: No focal deficit. -- DATA -- MEDICATIONS morphine SULFATE 2 MG IV Q2H PRN DEXTROSE 50%-WATER 25 ML IV ASDIR PRN ALBUTEROL SULFATE 2.5 MG NEB RTQ6H PRN LACTULOSE 30 ML PO BID PRN polyethylene glycoL 3350 1 PKT PO DAILY HEPARIN SODIUM,PORCINE 5000 UNIT IV ASDIR PRN NITROGLYCERIN 0.4 MG SL Q5M PRN ONDANSETRON HCL/PF 4 MG IV Q6H PRN FUROSEMIDE 40 MG IV DAILY@0700 ASPIRIN 81 MG PO DAILY METOPROLOL TARTRATE 5 MG IV Q6H PRN HYOSCYAMINE SULFATE 0.125 MG PO DAILY PRN DOCUSATE SODIUM 200 MG PO DAILY cloNIDine HCL 0.1 MG PO Q8H PRN LORazepam 0.5 MG PO Q6H PRN HYDROcodone BITARTRATE/APAP 1 TAB PO Q4H PRN ACETAMINOPHEN 650 MG PO Q6H PRN GLUCAGON 1 MG IM ASDIR PRN ONDANSETRON 4 MG PO Q6H PRN clonazePAM 0.5 MG PO BID MUPIROCIN 1 APPLIC NASAL BID POTASSIUM CHLORIDE 40 MEQ PO DAILY MONTELUKAST SODIUM 10 MG PO DAILY@1800 HEPARIN SODIUM,PORCINE 2500 UNIT IV ASDIR PRN bisacodyL 10 MG RECTAL DAILY PRN HEPARIN PHARMACY TO MONITOR 1 EACH IV ASDIR ATORVASTATIN CALCIUM 80 MG PO BEDTIME HEPARIN/SOD CHLOR 0.45% 60029 UNITS IV TITRATE METOPROLOL SUCCINATE 25 MG PO Q12HR SODIUM CHLORIDE 0.9% 1000 ML IV .Q24H LABS PTT (08/14/23 13:23) THROMBOPLASTIN TIME PARTIAL 71.2 D H PTT (08/14/23 05:37) THROMBOPLASTIN TIME PARTIAL 112.8 D*H CBC W/AUTO DIFF (08/14/23 03:38) WHITE BLOOD CELL 6.1 RED BLOOD CELL 3.71 L HEMOGLOBIN 11.1L L HEMATOCRIT 34.0L L MEAN CELL VOLUME 91.6 MEAN CELL HGB 29.9 MEAN CELL HGB CONCENTRATION 32.6 L RED CELL DISTRIBUTION WIDTH 14.2 PLATELET COUNT 245 MEAN PLATELET VOLUME 9.6 NEUTROPHIL % 50.5 LYMPHOCYTE % 31.6 MONOCYTE % 12.9 H EOSINOPHIL % 4.0 BASOPHIL % 0.7 NEUTROPHIL # 3.07 LYMPHOCYTE # 1.92 MONOCYTE # 0.78 EOSINOPHIL # 0.24 BASOPHIL # 0.04 COMPREHENSIVE METABOLIC PANEL (08/14/23 03:38) SODIUM 135 L POTASSIUM 3.9 D CHLORIDE 104 CARBON DIOXIDE 22 GLUCOSE 105 BLOOD UREA NITROGEN 19 GLOMERULAR FILTRATION RATE >=60 max estimate CREATININE 0.80 TOTAL PROTEIN 7.3 ALBUMIN 4.4 CALCIUM 8.7 BILIRUBIN TOTAL 1.2 SGOT/AST 37 H SGPT/ALT 23 ALKALINE PHOSPHATASE 101.0 -- QUALITY -- -MEDICATIONS- - I attest that the foregoing medication list in the medical record is true, accurate, and complete to the best of my knowledge. -- ATTESTATION -- CARE ACTIVITIES / CARE COORDINATION: - I have reviewed the history and repeated the snyder elements - I have seen and examined this patient - I have reviewed the progress in the clinical course since the last examination - I have discussed the patient's condition with other members of the care team Signed in PatientKeeper by Marianne Mckay MD on 08/14/23 at 15:10 at 1510 ATTENTION *EDITS and/or ADDENDA must be made in Patient Keeper for this note. * * Edits and ammendments created in [employer] are not visible * * in Patient Keeper or the legal medical record (HPF). * RPT #: [id number] END OF REPORT [facility] 2023-08-14 08:04:00 [facility] ([facility]) Cardiology Progress Notes REPORT #: [id number] REPORT STATUS: Signed DATE: 08/14/23 TIME: 08 PATIENT: ROCK GOMEZ UNIT #: [id number] ROOM #: [id number] BED: A : 36 AGE: 88 SEX: F ATTEND: Marianne Mckay MD ADM AUTHOR: Funmilayo Ibarra ATTENTION *EDITS and/or ADDENDA must be made in Patient Keeper for this note. * * Edits and ammendments created in [employer] are not visible * * in Patient Keeper or the legal medical record (HPF). * -- CO-SIGNATURE -- COMMENTS: I have personally seen and examined the patient independently, and reviewed the patient's history, exam, and all cardiac and laboratory data on 08/14/23. I agree with the history, physical, and the assessment and plan as outlined by Ms. ArredondojarenFunmilayo. Ms. Gomez is a 88-year-old female with past medical history of CAD, hypertension, hyperlipidemia, smoking admitted with worsening chest pain and shortness of breath, three-vessel CAD on coronary angiogram. The patient is now admitted with NSTEMI and undergoing evaluation for CABG. patient is doing better today. No further chest pain or shortness of breath. -Continue optimization of heart failure medications/gentle IV diuresis to volume optimize the patient. -Continue with aspirin, high intensity statin and beta-blockers. Signed in PatientKeeper by HERSON CORONA MD on 09/15/23 at 03:28 -- ASSESSMENT AND PLAN -- PROBLEMS: 1: NSTEMI (non-ST elevated myocardial infarction) A/P: The patient is an 88-year-old female (patient of Dr. Gianna Ambrose) has a PMHx of coronary artery disease (s/p PCI with 3 ALEC), family history of coronary artery disease, carotid artery disease, hypertension, hyperlipidemia, h/o nicotine use, asthma, chronic bronchitis, anxiety. She has been having chest pressure radiating to her jaw and shortness of breath for the past 3 weeks. She was evaluated by her medical clinic manager, had stress test on 07/28/2023 what was abnormal, showed cardiomyopathy, an EF of 34%, severe inferolateral, posterolateral ischemia. Echocardiogram (06/2023) showed an EF 55-60%, moderate MR. She had coronary angiogram on 07/31/23 and showed three vessel coronary artery disease, torturous aorta with small abdominal aortic aneurysm. elevated LVEDP that is not amenable for PCI. She was evaluated by CV surgery, Dr. Montiel, for CABG. She presented at an outside hospital with complaint of chest pain radiating to her left jaw, diaphoresis and she was ruled in NSTEMI. She was transferred here to [facility] for higher level of care. Chest x-ray showed interstitial and basilar airspace edema/infiltrates, cardiomegaly. Blood work showed troponin of 534.3, BNP 539, Mg 1.3. She was transferred to CVICU for closer observation and is being transferred out to CVIMU now. - Continue IV heparin - Echo completed - Pre-op work-up for CABG per CV surgery - On aspirin, atorvastatin 80mg daily, metoprolol XL 25mg BID - Continue IV furosemide 40mg daily - Clopidogrel discontinued, last dose taken on 08/08/23 per the patient - Losartan discontinued given upcoming surgery - On PT/OT/IS - CV surgery planning CABG next week (week of 08/16/23), likely on Wednesday -- SUBJECTIVE -- CHIEF COMPLAINT: NSTEMI PATIENT NARRATIVE: On heparin drip. Out of bed and in chair. Working on IS. Seen by Dr. Montiel and Dr. Herson Corona. She denies complaints today. No acute events overnight. -REVIEW OF SYSTEMS- GENERAL: Negative for fever, malaise, fatigue. EYES: Negative for blurry vision. No diplopia. EARS/NOSE/THROAT: Negative for sore throat. No otalgia. No rhinorrhea. RESPIRATORY: Negative for dyspnea or wheeze. No cough. CARDIOVASCULAR: Negative for chest pain or palpitations. No extremity swelling. GASTROINTESTINAL: Negative for abdominal pain or nausea. No emesis. No diarrhea. GENITOURINARY: Negative for dysuria, frequency, or urgency. No gross hematuria. MUSCULOSKELETAL: Negative for joint stiffness, pain, or arthralgias. SKIN: Negative for rashes. No pruritus. NEUROLOGICAL: Negative for headache. No vertigo. Denies paresthesias. PSYCHIATRIC: Negative for specific complaints. -- OBJECTIVE -- VITALS (08/13 06:33 - 08/14 06:33): Temperature C: 36.5 (36.4 - 36.8) Pulse Rate 76 (71 - 126) Respiratory rate: 24 (20 - 34) Blood pressure: 116/61 (82/50 - 129/82) Blood pressure source: Monitor I/Os (08/12 07:00 - 08/13 07:00): Net -300 Intake 300 Output 600 -EXAM- OTHER: Constitutional: Well developed, well nourished patient, in no acute distress. Derm/Integumentary: Warm and dry with no rashes, sores, or lesions. HEENT: Eyes-sclera clear and white, symmetrical w/ no lag. ENT - Palate and gums pink, mucosa moist, no pallor/cyanosis. Neck: supple with no masses, no thyromegaly, No JVD. Respiratory: Clear to auscultation. Heart: S1S2+, Regular Rate and Rhythm, No murmurs, rubs, or gallops. Gastrointestinal: + Bowel Sounds all quadrants. Soft, nontender with no masses or organomegaly; No HJR. Musculoskeletal: Equal strength in all extremities. No weakness. Neurology: Alert and oriented X 3. Calm, cooperative affect. No focal deficits. Extremities: + peripheral pulses. No clubbing, cyanosis. No lower extremity edema. -- DATA -- MEDICATIONS morphine SULFATE 2 MG IV Q2H PRN DEXTROSE 50%-WATER 25 ML IV ASDIR PRN ALBUTEROL SULFATE 2.5 MG NEB RTQ6H PRN LACTULOSE 30 ML PO BID PRN polyethylene glycoL 3350 1 PKT PO DAILY HEPARIN SODIUM,PORCINE 5000 UNIT IV ASDIR PRN LOS[place]AN POTASSIUM 50 MG PO Q12HR NITROGLYCERIN 0.4 MG SL Q5M PRN ONDANSETRON HCL/PF 4 MG IV Q6H PRN FUROSEMIDE 40 MG IV DAILY@0700 ASPIRIN 81 MG PO DAILY METOPROLOL TARTRATE 5 MG IV Q6H PRN HYOSCYAMINE SULFATE 0.125 MG PO DAILY PRN DOCUSATE SODIUM 200 MG PO DAILY cloNIDine HCL 0.1 MG PO Q8H PRN LORazepam 0.5 MG PO Q6H PRN HYDROcodone BITARTRATE/APAP 1 TAB PO Q4H PRN ACETAMINOPHEN 650 MG PO Q6H PRN GLUCAGON 1 MG IM ASDIR PRN ONDANSETRON 4 MG PO Q6H PRN clonazePAM 0.5 MG PO BID MUPIROCIN 1 APPLIC NASAL BID POTASSIUM CHLORIDE 40 MEQ PO DAILY MONTELUKAST SODIUM 10 MG PO DAILY@1800 HEPARIN SODIUM,PORCINE 2500 UNIT IV ASDIR PRN bisacodyL 10 MG RECTAL DAILY PRN HEPARIN PHARMACY TO MONITOR 1 EACH IV ASDIR ATORVASTATIN CALCIUM 80 MG PO DAILY HEPARIN/SOD CHLOR 0.45% 02259 UNITS IV TITRATE METOPROLOL SUCCINATE 25 MG PO Q12HR SODIUM CHLORIDE 0.9% 1000 ML IV .Q24H LABS PTT (08/14/23 05:37) THROMBOPLASTIN TIME PARTIAL 112.8 D*H CBC W/AUTO DIFF (08/14/23 03:38) WHITE BLOOD CELL 6.1 RED BLOOD CELL 3.71 L HEMOGLOBIN 11.1L L HEMATOCRIT 34.0L L MEAN CELL VOLUME 91.6 MEAN CELL HGB 29.9 MEAN CELL HGB CONCENTRATION 32.6 L RED CELL DISTRIBUTION WIDTH 14.2 PLATELET COUNT 245 MEAN PLATELET VOLUME 9.6 NEUTROPHIL % 50.5 LYMPHOCYTE % 31.6 MONOCYTE % 12.9 H EOSINOPHIL % 4.0 BASOPHIL % 0.7 NEUTROPHIL # 3.07 LYMPHOCYTE # 1.92 MONOCYTE # 0.78 EOSINOPHIL # 0.24 BASOPHIL # 0.04 COMPREHENSIVE METABOLIC PANEL (08/14/23 03:38) SODIUM 135 L POTASSIUM 3.9 D CHLORIDE 104 CARBON DIOXIDE 22 GLUCOSE 105 BLOOD UREA NITROGEN 19 GLOMERULAR FILTRATION RATE >=60 max estimate CREATININE 0.80 TOTAL PROTEIN 7.3 ALBUMIN 4.4 CALCIUM 8.7 BILIRUBIN TOTAL 1.2 SGOT/AST 37 H SGPT/ALT 23 ALKALINE PHOSPHATASE 101.0 COMPREHENSIVE METABOLIC PANEL (08/13/23 09:49) SODIUM 136 POTASSIUM 2.9 L CHLORIDE 100 CARBON DIOXIDE 24 GLUCOSE 114 H BLOOD UREA NITROGEN 16 GLOMERULAR FILTRATION RATE >=60 max estimate CREATININE 0.70 TOTAL PROTEIN 7.6 ALBUMIN 4.6 CALCIUM 8.8 BILIRUBIN TOTAL 1.4 H SGOT/AST 21 SGPT/ALT 12 ALKALINE PHOSPHATASE 88.0 PTT (08/13/23 09:49) THROMBOPLASTIN TIME PARTIAL 75.0 H CBC W/AUTO DIFF (08/13/23 09:49) WHITE BLOOD CELL 8.9 RED BLOOD CELL 3.70 L HEMOGLOBIN 11.0L L HEMATOCRIT 33.8L L MEAN CELL VOLUME 91.4 MEAN CELL HGB 29.7 MEAN CELL HGB CONCENTRATION 32.5 L RED CELL DISTRIBUTION WIDTH 14.3 PLATELET COUNT 234 MEAN PLATELET VOLUME 9.4 NEUTROPHIL % 73.3 LYMPHOCYTE % 14.3 L MONOCYTE % 10.7 H EOSINOPHIL % 0.7 BASOPHIL % 0.7 NEUTROPHIL # 6.50 LYMPHOCYTE # 1.27 MONOCYTE # 0.95 H EOSINOPHIL # 0.06 BASOPHIL # 0.06 -- ATTESTATION -- CARE ACTIVITIES / CARE COORDINATION: - I have reviewed the history and repeated the snyder elements - I have seen and examined this patient - I have reviewed the progress in the clinical course since the last examination - I have discussed the patient's condition with other members of the care team ADDITIONAL DETAIL: Plan of care discussed with Dr. Herson Corona Signed in PatientKeeper by FUNMILAYO IBARRA on 08/14/23 at 16:22 Cosigned by HERSON CORONA MD on 09/15/23 at 03:28 at 0328 at 0328 ATTENTION *EDITS and/or ADDENDA must be made in Patient Keeper for this note. * * Edits and ammendments created in [employer] are not visible * * in Patient Keeper or the legal medical record (HPF). * [facility] #: [id number] END OF REPORT [facility] 2023-08-13 13:01:00 [id number] [facility] [address] [place] [id number] PATIENT NAME: ROCK GOMEZ ADMIT DATE: 08/09/23 ACCOUNT NO: [id number] ROOM NO: [id number] AGE: 88 REPORT TYPE: eELECTROCARDIOGRAM SEX: F ADMITTING PHYSICIAN: Marianne Mckay MD ATTENDING PHYSICIAN: Marianne Mckay MD Order: [id number] Test Reason : Test Date/Time Stamp: WedAug 13 2023 13:01:53 Blood Pressure : / mmHG Vent. Rate : 122 BPM Atrial Rate : 122 BPM P-R Int : 158 ms QRS Dur : 098 ms QT Int : 312 ms P-R-T Axes : 079 054 074 degrees QTc Int : 444 ms Sinus tachycardia Nonspecific ST and T wave abnormality Abnormal ECG Confirmed by ALEJANDRA WOOD ([id number]) on 08/30/2023 7:39:38 AM Referred By: Self Referred Confirmed by:ALEJANDRA WOOD at 0739 PATIENT NAME: ROCK GOMEZ [facility] 2023-08-13 12:23:00 [facility] ([facility]) Hospitalist Progress Note REPORT #: [id number] REPORT STATUS: Signed DATE: 08/13/23 TIME: 1223 PATIENT: ROCK GOMEZ UNIT #: [id number] [facility] B[facility]: A : 36 AGE: 88 SEX: F ATTEND: Marianne Mckay MD ADM AUTHOR: Marianne Mckay MD ATTENTION *EDITS and/or ADDENDA must be made in Patient Keeper for this note. * * Edits and ammendments created in [employer] are not visible * * in Patient Keeper or the legal medical record (HPF). * -- ASSESSMENT AND PLAN -- GENERAL ASSESSMENT: ASSESSMENT AND PLAN: 1. Non-ST segment elevation myocardial infarction in a patient with a known history of severe multivessel coronary artery disease including proximal 80% LAD, 90% ostial and proximal circumflex and distal RCA with stent occlusion, preserved left ventricular ejection fraction on angiogram. The patient has recently been evaluated by Dr. King Montiel of Cardiothoracic Surgery services for consideration of coronary artery bypass and grafting. We will continue aspirin, heparin, beta blockers, statins and nitroglycerin. Her last dose of Plavix was on 08/08/2023 and will need a washout prior to surgical intervention. Plans for high risk CABG week of 08/[address] King Montiel. The patient is being transitioned out to CV IMU, pending CABG. 2. Pulmonary edema, related to decompensated diastolic congestive cardiac failure. Cautious use of diuretics. 3. Hypertension. Continue metoprolol and losartan. 4. Hyperlipidemia. Total cholesterol 226, HDL 90, LDL 139, triglycerides 121. Continue atorvastatin 80 mg daily. 5. Hypomagnesemia, replete. 6. Asthma. Continue montelukast. 7. Anxiety, not otherwise specified. Continue lorazepam. 8. Acute exacerbation of likely diastolic congestive heart failure. Diurese as above. 9. Osteoarthritis, avoid nonsteroidals. 10. Chronic kidney disease, stage II. 11. Hypokalemia, replete ADDITIONAL COMMENTS: Plans for high risk CABG week of 08/[address] King Montiel. Continue heparin, GDMT. -- SUBJECTIVE -- HPI: This 88-year-old female, a patient of Dr. Gianna Ambrose, has a past medical history significant for hypertension, hyperlipidemia, asthma, anxiety, chronic bronchitis, and coronary artery disease, status post angioplasty in 2011. A few weeks ago, the patient developed new onset of jaw pain and dyspnea, and noninvasive cardiac workup by Dr. Ambrose including a nuclear stress test showed an ejection fraction of 34% with severe inferolateral and posterolateral ischemia, a change from a previously normal ejection fraction of 55% to 60% in 06/2023. Subsequent coronary angiogram on 07/31/2023 showed severe multivessel coronary artery disease including 80% proximal LAD, 90% ostial and proximal circumflex, heavily calcified RCA with a distal occluded stent, and an ejection fraction during the heart catheterization to be 55%, elevated left ventricular end diastolic pressure at 33. The patient was evaluated by Dr. King Montiel of Cardiothoracic Surgery services on 08/06 and discussions were underway as regards to possible bypass surgery. Since that time, the patient has had increased anxiety about the possibility of undergoing bypass surgery and has not been able to sleep or rest well. On the morning of admission, she developed central chest pressure with radiation to the jaw and worsening shortness of breath. She presented to the [facility] in [place], [place], where troponin was elevated to 300 range and EKG was negative for ST elevation. She was also found to be in fluid overload, started on ACS protocol, heparin, Lasix and transferred to the [facility] for higher level of care. Troponin has trended up 530 and BNP 539, and chest x-ray shows interstitial pulmonary edema/infiltrates. She is being admitted to the intensive care unit for further evaluation and management. PATIENT NARRATIVE: 08/10: No acute events overnight. No significant chest pain or shortness of breath. Anxious. Troponin is trending down. On intravenous heparin, beta-blockers aspirin and statins. Plavix is on hold in case the patient goes for CABG. Cardiology and cardiothoracic surgery services following. Await further recommendations 08/11: No chest pain jaw pain or arm pain. On heparin infusion. Plans for high risk CABG week of 08/[address] King Montiel. The patient is being transitioned out to CV IMU, pending CABG. Walked 320 feet with physical therapy 08/12: Denies any chest pain or shortness of breath. No headache or dizziness. No nausea or vomiting. Has chronic constipation. On heparin infusion. Plans for high risk CABG week of 08/[address] King Montiel 08/13: No acute events overnight. No chest pain or shortness of breath. No headache or dizziness. The patient was reluctant to get her blood drawn for the PTT, explained to by the nurses. Agreeable. PTT therapeutic. Potassium low, 2.9, replaced On Lasix 40 mg IV daily. Intake and output are not accurate. Walked about 320 feet with physical therapy. -REVIEW OF SYSTEMS- GENERAL: CONSTITUTIONAL: Fatigue and tiredness. No fever or chills. HEENT: Denies any cough, congestion, or runny nose. CARDIOPULMONARY: Reports chest pain and shortness of breath. GASTROINTESTINAL: Reflux. GENITOURINARY: Denies any dysuria or discharge. MUSCULOSKELETAL: Reports joint pains. -- OBJECTIVE -- VITALS (08/12 11:23 - 08/13 12:23): Temperature F: 97.6 (97.6 - 98.6) Temperature C: 36.4 (36.4 - 36.5) Temperature source: Oral Pulse Rate 115 (77 - 121) Respiratory rate: 27 (23 - 42) Blood pressure: 82/54 (82/54 - 139/82) Blood pressure source: Monitor I/Os (08/12 07:00 - 08/13 07:00): Net -300 Intake 300 Output 600 -EXAM- GENERAL: GENERAL: Elderly female, anxious, not in any acute distress. VITAL SIGNS: oxygen saturation 99% on room air. Weight is 61.3 kilograms. Body mass index 27.3. HEENT: Head is atraumatic. Pupils are reactive to light and accommodation. Extraocular muscles intact. NECK: Supple. No thyromegaly. No JVD. CARDIOVASCULAR: Regular rate and rhythm. LUNGS: Clear to auscultation. ABDOMEN: Soft, nondistended, nontender. No organomegaly. EXTREMITIES: No edema, cyanosis, or clubbing. Pedal pulses palpable. NEUROLOGIC: No focal deficit. -- DATA -- MEDICATIONS morphine SULFATE 2 MG IV Q2H PRN DEXTROSE 50%-WATER 25 ML IV ASDIR PRN ALBUTEROL SULFATE 2.5 MG NEB RTQ6H PRN LACTULOSE 30 ML PO BID PRN polyethylene glycoL 3350 1 PKT PO DAILY HEPARIN SODIUM,PORCINE 5000 UNIT IV ASDIR PRN LOSARTAN POTASSIUM 50 MG PO Q12HR NITROGLYCERIN 0.4 MG SL Q5M PRN ONDANSETRON HCL/PF 4 MG IV Q6H PRN FUROSEMIDE 40 MG IV DAILY@0700 ASPIRIN 81 MG PO DAILY METOPROLOL TARTRATE 5 MG IV Q6H PRN HYOSCYAMINE SULFATE 0.125 MG PO DAILY PRN DOCUSATE SODIUM 200 MG PO DAILY cloNIDine HCL 0.1 MG PO Q8H PRN LORazepam 0.5 MG PO Q6H PRN HYDROcodone BITARTRATE/APAP 1 TAB PO Q4H PRN ACETAMINOPHEN 650 MG PO Q6H PRN GLUCAGON 1 MG IM ASDIR PRN ONDANSETRON 4 MG PO Q6H PRN clonazePAM 0.5 MG PO BID MUPIROCIN 1 APPLIC NASAL BID MONTELUKAST SODIUM 10 MG PO DAILY@1800 HEPARIN SODIUM,PORCINE 2500 UNIT IV ASDIR PRN bisacodyL 10 MG RECTAL DAILY PRN HEPARIN PHARMACY TO MONITOR 1 EACH IV ASDIR ATORVASTATIN CALCIUM 80 MG PO DAILY HEPARIN/SOD CHLOR 0.45% 97941 UNITS IV TITRATE METOPROLOL SUCCINATE 25 MG PO Q12HR SODIUM CHLORIDE 0.9% 1000 ML IV .Q24H LABS COMPREHENSIVE METABOLIC PANEL (08/13/23 09:49) SODIUM 136 POTASSIUM 2.9 L CHLORIDE 100 CARBON DIOXIDE 24 GLUCOSE 114 H BLOOD UREA NITROGEN 16 GLOMERULAR FILTRATION RATE >=60 max estimate CREATININE 0.70 TOTAL PROTEIN 7.6 ALBUMIN 4.6 CALCIUM 8.8 BILIRUBIN TOTAL 1.4 H SGOT/AST 21 SGPT/ALT 12 ALKALINE PHOSPHATASE 88.0 PTT (08/13/23 09:49) THROMBOPLASTIN TIME PARTIAL 75.0 H CBC W/AUTO DIFF (08/13/23 09:49) WHITE BLOOD CELL 8.9 RED BLOOD CELL 3.70 L HEMOGLOBIN 11.0L L HEMATOCRIT 33.8L L MEAN CELL VOLUME 91.4 MEAN CELL HGB 29.7 MEAN CELL HGB CONCENTRATION 32.5 L RED CELL DISTRIBUTION WIDTH 14.3 PLATELET COUNT 234 MEAN PLATELET VOLUME 9.4 NEUTROPHIL % 73.3 LYMPHOCYTE % 14.3 L MONOCYTE % 10.7 H EOSINOPHIL % 0.7 BASOPHIL % 0.7 NEUTROPHIL # 6.50 LYMPHOCYTE # 1.27 MONOCYTE # 0.95 H EOSINOPHIL # 0.06 BASOPHIL # 0.06 PTT (08/12/23 22:53) THROMBOPLASTIN TIME PARTIAL 73.0 H PTT (08/12/23 17:18) THROMBOPLASTIN TIME PARTIAL 81.7 D H PLT RESP PLAVIX (08/12/23 13:10) PLT RESPONSE TO PLAVIX 144 PLT RESP PLAVIX (08/12/23 13:10) PLT RESPONSE TO PLAVIX 144 -- QUALITY -- -MEDICATIONS- - I attest that the foregoing medication list in the medical record is true, accurate, and complete to the best of my knowledge. -- ATTESTATION -- CARE ACTIVITIES / CARE COORDINATION: - I have reviewed the history and repeated the snyder elements - I have seen and examined this patient - I have reviewed the progress in the clinical course since the last examination - I have discussed the patient's condition with other members of the care team Signed in PatientKeeper by Marianne Mckay MD on 08/13/23 at 15:41 at 1541 ATTENTION *EDITS and/or ADDENDA must be made in Patient Keeper for this note. * * Edits and ammendments created in [employer] are not visible * * in Patient Keeper or the legal medical record ([facility]). * RPT #: [id number] END OF REPORT [facility] 2023-08-13 08:32:00 [facility] ([facility]) Cardiology Progress Notes REPORT #: [id number] REPORT STATUS: Signed DATE: 08/13/23 TIME: 831 PATIENT: ROCK GOMEZ UNIT #: [id number] ROOM #: P.[id number] BED: A : 36 AGE: 88 SEX: F ATTEND: Marianne Mckay MD ADM AUTHOR: Funmilayo Ibarra ATTENTION *EDITS and/or ADDENDA must be made in Patient Keeper for this note. * * Edits and ammendments created in [employer] are not visible * * in Patient Keeper or the legal medical record ([facility]). * -- CO-SIGNATURE -- COMMENTS: I have personally seen and examined the patient independently, and reviewed the patient's history, exam, and all cardiac and laboratory data on 08/13/23. I agree with the history, physical, and the assessment and plan as outlined by StaceyFunmilayo. Ms. Gomez is a 88-year-old female with past medical history of CAD, hypertension, hyperlipidemia, smoking admitted with worsening chest pain and shortness of breath, three-vessel CAD on coronary angiogram. The patient is now admitted with NSTEMI and undergoing evaluation for CABG. -Continue optimization of heart failure medications/gentle IV diuresis to volume optimize the patient. -Continue with aspirin, high intensity statin and beta-blockers. Signed in PatientKeeper by HERSON CORONA MD on 09/15/23 at 03:21 -- ASSESSMENT AND PLAN -- PROBLEMS: 1: NSTEMI (non-ST elevated myocardial infarction) A/P: The patient is an 88-year-old female (patient of Dr. Gianna Ambrose) has a PMHx of coronary artery disease (s/p PCI with 3 ALEC), family history of coronary artery disease, carotid artery disease, hypertension, hyperlipidemia, h/o nicotine use, asthma, chronic bronchitis, anxiety. She has been having chest pressure radiating to her jaw and shortness of breath for the past 3 weeks. She was evaluated by her medical clinic manager, had stress test on 07/28/2023 what was abnormal, showed cardiomyopathy, an EF of 34%, severe inferolateral, posterolateral ischemia. Echocardiogram (06/2023) showed an EF 55-60%, moderate MR. She had coronary angiogram on 07/31/23 and showed three vessel coronary artery disease, torturous aorta with small abdominal aortic aneurysm. elevated LVEDP that is not amenable for PCI. She was evaluated by CV surgery, Dr. Montiel, for CABG. She presented at an outside hospital with complaint of chest pain radiating to her left jaw, diaphoresis and she was ruled in NSTEMI. She was transferred here to [facility] for higher level of care. Chest x-ray showed interstitial and basilar airspace edema/infiltrates, cardiomegaly. Blood work showed troponin of 534.3, BNP 539, Mg 1.3. She was transferred to CVICU for closer observation and is being transferred out to CVIMU now. - On IV heparin - Echo completed - Pre-op work-up for CABG per CV surgery - Continue aspirin, atorvastatin 80mg daily, metoprolol XL 25mg BID - Discontinue losartan given upcoming surgery - On IV furosemide 40mg daily - K 2.9, replace electrolyte - Clopidogrel discontinued, last dose taken on 08/08/23 per the patient - On PT/OT/IS - CV surgery planning CABG next week (week of 08/16/23), likely on Wednesday -- SUBJECTIVE -- CHIEF COMPLAINT: NSTEMI PATIENT NARRATIVE: Out of bed and in chair. Ambulated on the unit earlier today with no issues. Family at bedside. No acute events overnight. -REVIEW OF SYSTEMS- GENERAL: Negative for fever, malaise, fatigue. EYES: Negative for blurry vision. No diplopia. EARS/NOSE/THROAT: Negative for sore throat. No otalgia. No rhinorrhea. RESPIRATORY: Negative for dyspnea or wheeze. No cough. CARDIOVASCULAR: Negative for chest pain or palpitations. No extremity swelling. GASTROINTESTINAL: Negative for abdominal pain or nausea. No emesis. No diarrhea. GENITOURINARY: Negative for dysuria, frequency, or urgency. No gross hematuria. MUSCULOSKELETAL: Negative for joint stiffness, pain, or arthralgias. SKIN: Negative for rashes. No pruritus. NEUROLOGICAL: Negative for headache. No vertigo. Denies paresthesias. PSYCHIATRIC: Negative for specific complaints. -- OBJECTIVE -- VITALS (08/13 06:33 - 08/14 06:33): Temperature C: 36.5 (36.4 - 36.8) Pulse Rate 76 (71 - 126) Respiratory rate: 24 (20 - 34) Blood pressure: 116/61 (82/50 - 129/82) Blood pressure source: Monitor I/Os (08/12 07:00 - 08/13 07:00): Net -300 Intake 300 Output 600 -EXAM- OTHER: Constitutional: Well developed, well nourished patient, in no acute distress. Derm/Integumentary: Warm and dry with no rashes, sores, or lesions. HEENT: Eyes-sclera clear and white, symmetrical w/ no lag. ENT - Palate and gums pink, mucosa moist, no pallor/cyanosis. Neck: supple with no masses, no thyromegaly, No JVD. Respiratory: Clear to auscultation. Heart: S1S2+, Regular Rate and Rhythm, No murmurs, rubs, or gallops. Gastrointestinal: + Bowel Sounds all quadrants. Soft, nontender with no masses or organomegaly; No HJR. Musculoskeletal: Equal strength in all extremities. No weakness. Neurology: Alert and oriented X 3. Calm, cooperative affect. No focal deficits. Extremities: + peripheral pulses. No clubbing, cyanosis. No lower extremity edema. -- DATA -- MEDICATIONS morphine SULFATE 2 MG IV Q2H PRN DEXTROSE 50%-WATER 25 ML IV ASDIR PRN ALBUTEROL SULFATE 2.5 MG NEB RTQ6H PRN LACTULOSE 30 ML PO BID PRN polyethylene glycoL 3350 1 PKT PO DAILY HEPARIN SODIUM,PORCINE 5000 UNIT IV ASDIR PRN LOSARTAN POTASSIUM 50 MG PO Q12HR NITROGLYCERIN 0.4 MG SL Q5M PRN ONDANSETRON HCL/PF 4 MG IV Q6H PRN FUROSEMIDE 40 MG IV DAILY@0700 ASPIRIN 81 MG PO DAILY METOPROLOL TARTRATE 5 MG IV Q6H PRN HYOSCYAMINE SULFATE 0.125 MG PO DAILY PRN DOCUSATE SODIUM 200 MG PO DAILY cloNIDine HCL 0.1 MG PO Q8H PRN LORazepam 0.5 MG PO Q6H PRN HYDROcodone BITARTRATE/APAP 1 TAB PO Q4H PRN ACETAMINOPHEN 650 MG PO Q6H PRN GLUCAGON 1 MG IM ASDIR PRN ONDANSETRON 4 MG PO Q6H PRN clonazePAM 0.5 MG PO BID MUPIROCIN 1 APPLIC NASAL BID POTASSIUM CHLORIDE 40 MEQ PO DAILY MONTELUKAST SODIUM 10 MG PO DAILY@1800 HEPARIN SODIUM,PORCINE 2500 UNIT IV ASDIR PRN bisacodyL 10 MG RECTAL DAILY PRN HEPARIN PHARMACY TO MONITOR 1 EACH IV ASDIR ATORVASTATIN CALCIUM 80 MG PO DAILY HEPARIN/SOD CHLOR 0.45% 50081 UNITS IV TITRATE METOPROLOL SUCCINATE 25 MG PO Q12HR SODIUM CHLORIDE 0.9% 1000 ML IV .Q24H LABS PTT (08/14/23 05:37) THROMBOPLASTIN TIME PARTIAL 112.8 D*H CBC W/AUTO DIFF (08/14/23 03:38) WHITE BLOOD CELL 6.1 RED BLOOD CELL 3.71 L HEMOGLOBIN 11.1L L HEMATOCRIT 34.0L L MEAN CELL VOLUME 91.6 MEAN CELL HGB 29.9 MEAN CELL HGB CONCENTRATION 32.6 L RED CELL DISTRIBUTION WIDTH 14.2 PLATELET COUNT 245 MEAN PLATELET VOLUME 9.6 NEUTROPHIL % 50.5 LYMPHOCYTE % 31.6 MONOCYTE % 12.9 H EOSINOPHIL % 4.0 BASOPHIL % 0.7 NEUTROPHIL # 3.07 LYMPHOCYTE # 1.92 MONOCYTE # 0.78 EOSINOPHIL # 0.24 BASOPHIL # 0.04 COMPREHENSIVE METABOLIC PANEL (08/14/23 03:38) SODIUM 135 L POTASSIUM 3.9 D CHLORIDE 104 CARBON DIOXIDE 22 GLUCOSE 105 BLOOD UREA NITROGEN 19 GLOMERULAR FILTRATION RATE >=60 max estimate CREATININE 0.80 TOTAL PROTEIN 7.3 ALBUMIN 4.4 CALCIUM 8.7 BILIRUBIN TOTAL 1.2 SGOT/AST 37 H SGPT/ALT 23 ALKALINE PHOSPHATASE 101.0 COMPREHENSIVE METABOLIC PANEL (08/13/23 09:49) SODIUM 136 POTASSIUM 2.9 L CHLORIDE 100 CARBON DIOXIDE 24 GLUCOSE 114 H BLOOD UREA NITROGEN 16 GLOMERULAR FILTRATION RATE >=60 max estimate CREATININE 0.70 TOTAL PROTEIN 7.6 ALBUMIN 4.6 CALCIUM 8.8 BILIRUBIN TOTAL 1.4 H SGOT/AST 21 SGPT/ALT 12 ALKALINE PHOSPHATASE 88.0 PTT (08/13/23 09:49) THROMBOPLASTIN TIME PARTIAL 75.0 H CBC W/AUTO DIFF (08/13/23 09:49) WHITE BLOOD CELL 8.9 RED BLOOD CELL 3.70 L HEMOGLOBIN 11.0L L HEMATOCRIT 33.8L L MEAN CELL VOLUME 91.4 MEAN CELL HGB 29.7 MEAN CELL HGB CONCENTRATION 32.5 L RED CELL DISTRIBUTION WIDTH 14.3 PLATELET COUNT 234 MEAN PLATELET VOLUME 9.4 NEUTROPHIL % 73.3 LYMPHOCYTE % 14.3 L MONOCYTE % 10.7 H EOSINOPHIL % 0.7 BASOPHIL % 0.7 NEUTROPHIL # 6.50 LYMPHOCYTE # 1.27 MONOCYTE # 0.95 H EOSINOPHIL # 0.06 BASOPHIL # 0.06 -- ATTESTATION -- CARE ACTIVITIES / CARE COORDINATION: - I have reviewed the history and repeated the snyder elements - I have seen and examined this patient - I have reviewed the progress in the clinical course since the last examination - I have discussed the patient's condition with other members of the care team ADDITIONAL DETAIL: Plan of care discussed with Dr. Herson Corona Signed in PatientKeeper by FUNMILAYO IBARRA on 08/14/23 at 11:41 Cosigned by HERSON CORONA MD on 09/15/23 at 03:21 at 0321 at 0321 ATTENTION *EDITS and/or ADDENDA must be made in Patient Keeper for this note. * * Edits and ammendments created in [facility] are not visible * * in Patient Keeper or the legal medical record ([facility]). * RPT #: [id number] END OF REPORT [facility] 2023-08-12 17:17:00 [facility] ([facility]) Hospitalist Progress Note REPORT #: [id number] REPORT STATUS: Signed DATE: 08/12/23 TIME: 1716 PATIENT: ROCK GOMEZ UNIT #: [id number] ROOM #: P.[id number] BED: A : 36 AGE: 88 SEX: F ATTEND: Marianne Mckay MD ADM AUTHOR: Marianne Mckay MD ATTENTION *EDITS and/or ADDENDA must be made in Patient Keeper for this note. * * Edits and ammendments created in [employer] are not visible * * in Patient Keeper or the legal medical record ([facility]). * -- ASSESSMENT AND PLAN -- GENERAL ASSESSMENT: ASSESSMENT AND PLAN: 1. Non-ST segment elevation myocardial infarction in a patient with a known history of severe multivessel coronary artery disease including proximal 80% LAD, 90% ostial and proximal circumflex and distal RCA with stent occlusion, preserved left ventricular ejection fraction on angiogram. The patient has recently been evaluated by Dr. King Montiel of Cardiothoracic Surgery services for consideration of coronary artery bypass and grafting. We will continue aspirin, heparin, beta blockers, statins and nitroglycerin. Her last dose of Plavix was on 08/08/2023 and will need a washout prior to surgical intervention. Plans for high risk CABG week of 08/[address] King Montiel. The patient is being transitioned out to CV IMU, pending CABG. 2. Pulmonary edema, related to decompensated diastolic congestive cardiac failure. Cautious use of diuretics. 3. Hypertension. Continue metoprolol and losartan. 4. Hyperlipidemia. Total cholesterol 226, HDL 90, LDL 139, triglycerides 121. Continue atorvastatin 80 mg daily. 5. Hypomagnesemia, replete. 6. Asthma. Continue montelukast. 7. Anxiety, not otherwise specified. Continue lorazepam. 8. Acute exacerbation of likely diastolic congestive heart failure. Diurese as above. 9. Osteoarthritis, avoid nonsteroidals. 10. Chronic kidney disease, stage II. ADDITIONAL COMMENTS: Plans for high risk CABG week of 08/[address] King Montiel. The patient is being transitioned out to CV IMU, pending CABG. Continue guideline directed medical therapy including heparin. -- SUBJECTIVE -- HPI: This 88-year-old female, a patient of Dr. Gianna Ambrose, has a past medical history significant for hypertension, hyperlipidemia, asthma, anxiety, chronic bronchitis, and coronary artery disease, status post angioplasty in 2011. A few weeks ago, the patient developed new onset of jaw pain and dyspnea, and noninvasive cardiac workup by Dr. Ambrose including a nuclear stress test showed an ejection fraction of 34% with severe inferolateral and posterolateral ischemia, a change from a previously normal ejection fraction of 55% to 60% in 06/2023. Subsequent coronary angiogram on 07/31/2023 showed severe multivessel coronary artery disease including 80% proximal LAD, 90% ostial and proximal circumflex, heavily calcified RCA with a distal occluded stent, and an ejection fraction during the heart catheterization to be 55%, elevated left ventricular end diastolic pressure at 33. The patient was evaluated by Dr. King Montiel of Cardiothoracic Surgery services on 08/06 and discussions were underway as regards to possible bypass surgery. Since that time, the patient has had increased anxiety about the possibility of undergoing bypass surgery and has not been able to sleep or rest well. On the morning of admission, she developed central chest pressure with radiation to the jaw and worsening shortness of breath. She presented to the [facility] in [place], [place], where troponin was elevated to 300 range and EKG was negative for ST elevation. She was also found to be in fluid overload, started on ACS protocol, heparin, Lasix and transferred to the [facility] for higher level of care. Troponin has trended up 530 and BNP 539, and chest x-ray shows interstitial pulmonary edema/infiltrates. She is being admitted to the intensive care unit for further evaluation and management. PATIENT NARRATIVE: 08/10: No acute events overnight. No significant chest pain or shortness of breath. Anxious. Troponin is trending down. On intravenous heparin, beta-blockers aspirin and statins. Plavix is on hold in case the patient goes for CABG. Cardiology and cardiothoracic surgery services following. Await further recommendations 08/11: No chest pain jaw pain or arm pain. On heparin infusion. Plans for high risk CABG week of 08/[address] King Montiel. The patient is being transitioned out to CV IMU, pending CABG. Walked 320 feet with physical therapy 08/12: Denies any chest pain or shortness of breath. No headache or dizziness. No nausea or vomiting. Has chronic constipation. On heparin infusion. Plans for high risk CABG week of 08/[address] King Montiel -REVIEW OF SYSTEMS- GENERAL: CONSTITUTIONAL: Fatigue and tiredness. No fever or chills. HEENT: Denies any cough, congestion, or runny nose. CARDIOPULMONARY: Reports chest pain and shortness of breath. GASTROINTESTINAL: Reflux. GENITOURINARY: Denies any dysuria or discharge. MUSCULOSKELETAL: Reports joint pains. -- OBJECTIVE -- VITALS (08/11 17:17 - 08/12 17:17): Temperature F: 98.2 (98.2 - 98.7) Temperature source: Oral Pulse Rate 95 (75 - 101) Respiratory rate: 34 (24 - 42) Blood pressure: 99/61 (84/47 - 117/68) Blood pressure source: Monitor I/Os (08/11 07:00 - 08/12 07:00): Net -568.30 Intake 1,381.70 Output 1,950 -EXAM- GENERAL: GENERAL: Elderly female, anxious, not in any acute distress. VITAL SIGNS: oxygen saturation 99% on room air. Weight is 61.3 kilograms. Body mass index 27.3. HEENT: Head is atraumatic. Pupils are reactive to light and accommodation. Extraocular muscles intact. NECK: Supple. No thyromegaly. No JVD. CARDIOVASCULAR: Regular rate and rhythm. LUNGS: Clear to auscultation. ABDOMEN: Soft, nondistended, nontender. No organomegaly. EXTREMITIES: No edema, cyanosis, or clubbing. Pedal pulses palpable. NEUROLOGIC: No focal deficit. -- DATA -- MEDICATIONS morphine SULFATE 2 MG IV Q2H PRN DEXTROSE 50%-WATER 25 ML IV ASDIR PRN ALBUTEROL SULFATE 2.5 MG NEB RTQ6H PRN LACTULOSE 30 ML PO BID PRN polyethylene glycoL 3350 1 PKT PO DAILY HEPARIN SODIUM,PORCINE 5000 UNIT IV ASDIR PRN LOSARTAN POTASSIUM 50 MG PO Q12HR NITROGLYCERIN 0.4 MG SL Q5M PRN ONDANSETRON HCL/PF 4 MG IV Q6H PRN FUROSEMIDE 40 MG IV DAILY@0700 ASPIRIN 81 MG PO DAILY METOPROLOL TARTRATE 5 MG IV Q6H PRN HYOSCYAMINE SULFATE 0.125 MG PO DAILY PRN DOCUSATE SODIUM 200 MG PO DAILY cloNIDine HCL 0.1 MG PO Q8H PRN LORazepam 0.5 MG PO Q6H PRN FAMOTIDINE 20 MG PO BID HYDROcodone BITARTRATE/APAP 1 TAB PO Q4H PRN ACETAMINOPHEN 650 MG PO Q6H PRN GLUCAGON 1 MG IM ASDIR PRN ONDANSETRON 4 MG PO Q6H PRN clonazePAM 0.5 MG PO BID MUPIROCIN 1 APPLIC NASAL BID MONTELUKAST SODIUM 10 MG PO DAILY@1800 HEPARIN SODIUM,PORCINE 2500 UNIT IV ASDIR PRN bisacodyL 10 MG RECTAL DAILY PRN HEPARIN PHARMACY TO MONITOR 1 EACH IV ASDIR ATORVASTATIN CALCIUM 80 MG PO DAILY HEPARIN/SOD CHLOR 0.45% 27377 UNITS IV TITRATE METOPROLOL SUCCINATE 25 MG PO Q12HR SODIUM CHLORIDE 0.9% 1000 ML IV .Q24H LABS PTT (08/12/23 05:53) THROMBOPLASTIN TIME PARTIAL 50.7 D H CBC W/AUTO DIFF (08/12/23 05:53) WHITE BLOOD CELL 7.6 RED BLOOD CELL 3.58 L HEMOGLOBIN 10.6L L HEMATOCRIT 33.2L L MEAN CELL VOLUME 92.7 MEAN CELL HGB 29.6 MEAN CELL HGB CONCENTRATION 31.9 L RED CELL DISTRIBUTION WIDTH 14.6 PLATELET COUNT 235 MEAN PLATELET VOLUME 9.3 NEUTROPHIL % 57.1 LYMPHOCYTE % 27.7 MONOCYTE % 12.2 H EOSINOPHIL % 2.0 BASOPHIL % 0.9 NEUTROPHIL # 4.36 LYMPHOCYTE # 2.11 MONOCYTE # 0.93 H EOSINOPHIL # 0.15 BASOPHIL # 0.07 PHOS (08/12/23 04:39) PHOSPHOROUS 3.4 MAG (08/12/23 04:39) MAGNESIUM 1.5 L BASIC METABOLIC PANEL (08/12/23 04:39) SODIUM 137 POTASSIUM 3.5 CHLORIDE 104 CARBON DIOXIDE 24 GLUCOSE 109H H BLOOD UREA NITROGEN 16 GLOMERULAR FILTRATION RATE >=60 max estimate CREATININE 0.90 CALCIUM 7.9 L -- QUALITY -- -MEDICATIONS- - I attest that the foregoing medication list in the medical record is true, accurate, and complete to the best of my knowledge. -- ATTESTATION -- CARE ACTIVITIES / CARE COORDINATION: - I have reviewed the history and repeated the snyder elements - I have seen and examined this patient - I have reviewed the progress in the clinical course since the last examination - I have discussed the patient's condition with other members of the care team Signed in PatientKeeper by Marianne Mckay MD on 08/12/23 at 19:44 at 1944 ATTENTION *EDITS and/or ADDENDA must be made in Patient Keeper for this note. * * Edits and ammendments created in [employer] are not visible * * in Patient Keeper or the legal medical record ([facility]). * RPT #: [id number] END OF REPORT [facility] 2023-08-12 07:24:00 [facility] ([facility]) Cardiology Progress Notes REPORT #: [id number] REPORT STATUS: Signed DATE: 08/12/23 TIME: 723 PATIENT: ROCK GOMEZ UNIT #: [id number] ROOM #: P.0405 BED: A : 36 AGE: 88 SEX: F ATTEND: Marianne Mckay MD [facility] AUTHOR: Lisa Wing DO [facility] ATTENTION *EDITS and/or ADDENDA must be made in Patient Keeper for this note. * * Edits and ammendments created in [employer] are not visible * * in Patient Keeper or the legal medical record ([facility]). * -- CO-SIGNATURE -- COMMENTS: I did a newAgree with the findings and plan as documented by Housestaff I have seen and examined this patient * my personal evaluation is NSTEMI Multivessel CAD HFpEF-acute on chronic Continue diuresis with Lasix 40 mg IV daily Continue IV heparin, aspirin metoprolol and Lipitor Continue workup for CABG, plan for CABG next week I devoted my full attention for this service to the direct care of this patient Life threatening disease due to CAD Organ systems impaired or failing: Cardiac I have reviewed the history and repeated the snyder elements I have reviewed the progress in the clinical course since the last examination I have discussed the patient's condition with other consultants and members of the care team I have independently interpreted available diagnostic studies (EKG CXR Echo Cardiac cath) Signed in PatientKeeper by GEETHA PINTO MD on 08/13/23 at 15:27 -- ASSESSMENT AND PLAN -- HOSPITAL COURSE TO DATE: 08/11 okay to downgrade to CV IMU 08/12 plan for CABG week of 08/16 GENERAL ASSESSMENT: The patient is an 88-year-old female (patient of Dr. Gianna Ambrose) has a PMHx of coronary artery disease (s/p PCI with 3 ALEC), family history of coronary artery disease, carotid artery disease, hypertension, hyperlipidemia, h/o nicotine use, asthma, chronic bronchitis, anxiety. She has been having chest pressure radiating to her jaw and shortness of breath for the past 3 weeks. She was evaluated by her medical clinic manager, had stress test on 07/28/2023 what was abnormal, showed cardiomyopathy, an EF of 34%, severe inferolateral, posterolateral ischemia. Echocardiogram (06/2023) showed an EF 55-60%, moderate MR. She had coronary angiogram on 07/31/23 and showed three vessel coronary artery disease, torturous aorta with small abdominal aortic aneurysm. elevated LVEDP that is not amenable for PCI. She was evaluated by CV surgery, Dr. Montiel, for CABG. She presented at an outside hospital with complaint of chest pain radiating to her left jaw, diaphoresis and she was ruled in NSTEMI. She was transferred here to [facility] for higher level of care. Chest x-ray showed interstitial and basilar airspace edema/infiltrates, cardiomegaly. Blood work showed troponin of 534.3, BNP 539, Mg 1.3. She denies chest pain, shortness of breath, palpitations now. PROBLEMS: 1: NSTEMI (non-ST elevated myocardial infarction) A/P: - cont on IV heparin - TTE 08/09/2023 LVEF 40-44%, moderate MR - CT chest w/o contrast showed RUL PNA, Right pleural effusion, Platelike atelectasis in the lower lobes. - On aspirin, atorvastatin 80mg daily, metoprolol XL 25mg BID - Cont on IV furosemide 40mg daily - cont to monitor and replete electrolytes - Clopidogrel discontinued, last dose taken on 08/08/23 per the patient - On PT/OT/IS - Plan for likely CABG per CV surgery week of 08/16/2023 - Okay to downgrade to CV IMU 08/11 -- SUBJECTIVE -- CHIEF COMPLAINT: AMELIA this AM. SAUNDRA overnight. No new complaints. Tele: NSR 82 bpm -REVIEW OF SYSTEMS- COMMENT: 10 point ROS negative unless noted. -- OBJECTIVE -- VITALS (08/11 07:24 - 08/12 07:24): Temperature F: 98.7 (98.0 - 98.7) Temperature source: Oral Pulse Rate 80 (75 - 101) Respiratory rate: 28 (22 - 44) Blood pressure: 98/56 (83/47 - 117/68) Blood pressure source: Monitor I/Os (08/11 07:00 - 08/12 07:00): Net -247.70 Intake 1,352.30 Output 1,600 -EXAM- GENERAL: Well developed, well nourished, in no apparent distress. CHEST: Grossly normal appearance. LUNGS: Clear bilaterally with normal respiratory effort. HEART: Regular rate and rhythm, normal S1, S2, no murmurs ABDOMEN: Soft, non-tender EXTREMITIES: No clubbing, no cyanosis, no edema. NEUROLOGICAL: No focal deficits, cranial nerves II-XII grossly intact PULSES: Pulses normal in all extremities. SKIN: Intact without significant lesions, or rashes. PSYCHIATRIC: Alert and oriented to time, person, place. Normal mood and affect, intact judgment and insight. -- DATA -- MEDICATIONS morphine SULFATE 2 MG IV Q2H PRN DEXTROSE 50%-WATER 25 ML IV ASDIR PRN ALBUTEROL SULFATE 2.5 MG NEB RTQ6H PRN LACTULOSE 30 ML PO BID PRN polyethylene glycoL 3350 1 PKT PO DAILY HEPARIN SODIUM,PORCINE 5000 UNIT IV ASDIR PRN LOSARTAN POTASSIUM 50 MG PO Q12HR NITROGLYCERIN 0.4 MG SL Q5M PRN ONDANSETRON HCL/PF 4 MG IV Q6H PRN FUROSEMIDE 40 MG IV DAILY@0700 ASPIRIN 81 MG PO DAILY METOPROLOL TARTRATE 5 MG IV Q6H PRN HYOSCYAMINE SULFATE 0.125 MG PO DAILY PRN DOCUSATE SODIUM 200 MG PO DAILY cloNIDine HCL 0.1 MG PO Q8H PRN LORazepam 0.5 MG PO Q6H PRN FAMOTIDINE 20 MG PO BID HYDROcodone BITARTRATE/APAP 1 TAB PO Q4H PRN ACETAMINOPHEN 650 MG PO Q6H PRN GLUCAGON 1 MG IM ASDIR PRN ONDANSETRON 4 MG PO Q6H PRN clonazePAM 0.5 MG PO BID MUPIROCIN 1 APPLIC NASAL BID MONTELUKAST SODIUM 10 MG PO DAILY@1800 HEPARIN SODIUM,PORCINE 2500 UNIT IV ASDIR PRN bisacodyL 10 MG RECTAL DAILY PRN HEPARIN PHARMACY TO MONITOR 1 EACH IV ASDIR ATORVASTATIN CALCIUM 80 MG PO DAILY HEPARIN/SOD CHLOR 0.45% 90802 UNITS IV TITRATE METOPROLOL SUCCINATE 25 MG PO Q12HR SODIUM CHLORIDE 0.9% 1000 ML IV .Q24H LABS PTT (08/12/23 05:53) THROMBOPLASTIN TIME PARTIAL 50.7 D H CBC W/AUTO DIFF (08/12/23 05:53) WHITE BLOOD CELL 7.6 RED BLOOD CELL 3.58 L HEMOGLOBIN 10.6L L HEMATOCRIT 33.2L L MEAN CELL VOLUME 92.7 MEAN CELL HGB 29.6 MEAN CELL HGB CONCENTRATION 31.9 L RED CELL DISTRIBUTION WIDTH 14.6 PLATELET COUNT 235 MEAN PLATELET VOLUME 9.3 NEUTROPHIL % 57.1 LYMPHOCYTE % 27.7 MONOCYTE % 12.2 H EOSINOPHIL % 2.0 BASOPHIL % 0.9 NEUTROPHIL # 4.36 LYMPHOCYTE # 2.11 MONOCYTE # 0.93 H EOSINOPHIL # 0.15 BASOPHIL # 0.07 PHOS (08/12/23 04:39) PHOSPHOROUS 3.4 MAG (08/12/23 04:39) MAGNESIUM 1.5 L BASIC METABOLIC PANEL (08/12/23 04:39) SODIUM 137 POTASSIUM 3.5 CHLORIDE 104 CARBON DIOXIDE 24 GLUCOSE 109H H BLOOD UREA NITROGEN 16 GLOMERULAR FILTRATION RATE >=60 max estimate CREATININE 0.90 CALCIUM 7.9 L Signed in PatientKeeper by LISA WING DO CF1 on 08/12/23 at 14:04 Cosigned by GEETHA PINTO MD on 08/13/23 at 15:27 at 1527 at 1527 ATTENTION *EDITS and/or ADDENDA must be made in Patient Keeper for this note. * * Edits and ammendments created in [employer] are not visible * * in Patient Keeper or the legal medical record (HPF). * RPT #: [id number] END OF REPORT [facility] 2023-08-11 10:42:00 [facility] ([facility]) Hospitalist Progress Note REPORT #: [id number] REPORT STATUS: Signed DATE: 08/11/23 TIME: 1042 PATIENT: ROCK GOMEZ UNIT #: [id number] ROOM #: [id number] BED: 1 : 36 AGE: 88 SEX: F ATTEND: Marianne Mckay MD ADM AUTHOR: Marianne Mckay MD ATTENTION *EDITS and/or ADDENDA must be made in Patient Keeper for this note. * * Edits and ammendments created in [employer] are not visible * * in Patient Keeper or the legal medical record (HPF). * -- ASSESSMENT AND PLAN -- GENERAL ASSESSMENT: ASSESSMENT AND PLAN: 1. Non-ST segment elevation myocardial infarction in a patient with a known history of severe multivessel coronary artery disease including proximal 80% LAD, 90% ostial and proximal circumflex and distal RCA with stent occlusion, preserved left ventricular ejection fraction on angiogram. The patient has recently been evaluated by Dr. King Montiel of Cardiothoracic Surgery services for consideration of coronary artery bypass and grafting. We will continue aspirin, heparin, beta blockers, statins and nitroglycerin. Her last dose of Plavix was on 08/08/2023 and will need a washout prior to surgical intervention. Plans for high risk CABG week of 08/[address] King Montiel. The patient is being transitioned out to CV IMU, pending CABG. 2. Pulmonary edema, related to decompensated diastolic congestive cardiac failure. Cautious use of diuretics. 3. Hypertension. Continue metoprolol and losartan. 4. Hyperlipidemia. Total cholesterol 226, HDL 90, LDL 139, triglycerides 121. Continue atorvastatin 80 mg daily. 5. Hypomagnesemia, replete. 6. Asthma. Continue montelukast. 7. Anxiety, not otherwise specified. Continue lorazepam. 8. Acute exacerbation of likely diastolic congestive heart failure. Diurese as above. 9. Osteoarthritis, avoid nonsteroidals. 10. Chronic kidney disease, stage II. ADDITIONAL COMMENTS: Plans for high risk CABG week of 08/[address] King Montiel. The patient is being transitioned out to CV IMU, pending CABG. Continue guideline directed medical therapy including heparin. -- SUBJECTIVE -- HPI: This 88-year-old female, a patient of Dr. Gianna Ambrose, has a past medical history significant for hypertension, hyperlipidemia, asthma, anxiety, chronic bronchitis, and coronary artery disease, status post angioplasty in 2011. A few weeks ago, the patient developed new onset of jaw pain and dyspnea, and noninvasive cardiac workup by Dr. Ambrose including a nuclear stress test showed an ejection fraction of 34% with severe inferolateral and posterolateral ischemia, a change from a previously normal ejection fraction of 55% to 60% in 06/2023. Subsequent coronary angiogram on 07/31/2023 showed severe multivessel coronary artery disease including 80% proximal LAD, 90% ostial and proximal circumflex, heavily calcified RCA with a distal occluded stent, and an ejection fraction during the heart catheterization to be 55%, elevated left ventricular end diastolic pressure at 33. The patient was evaluated by Dr. King Montiel of Cardiothoracic Surgery services on 08/06 and discussions were underway as regards to possible bypass surgery. Since that time, the patient has had increased anxiety about the possibility of undergoing bypass surgery and has not been able to sleep or rest well. On the morning of admission, she developed central chest pressure with radiation to the jaw and worsening shortness of breath. She presented to the [facility] in [place], [place], where troponin was elevated to 300 range and EKG was negative for ST elevation. She was also found to be in fluid overload, started on ACS protocol, heparin, Lasix and transferred to the [facility] for higher level of care. Troponin has trended up 530 and BNP 539, and chest x-ray shows interstitial pulmonary edema/infiltrates. She is being admitted to the intensive care unit for further evaluation and management. PATIENT NARRATIVE: 08/10: No acute events overnight. No significant chest pain or shortness of breath. Anxious. Troponin is trending down. On intravenous heparin, beta-blockers aspirin and statins. Plavix is on hold in case the patient goes for CABG. Cardiology and cardiothoracic surgery services following. Await further recommendations 08/11: No chest pain jaw pain or arm pain. On heparin infusion. Plans for high risk CABG week of 08/[address] King Montiel. The patient is being transitioned out to CV IMU, pending CABG. Walked 320 feet with physical therapy -REVIEW OF SYSTEMS- GENERAL: CONSTITUTIONAL: Fatigue and tiredness. No fever or chills. HEENT: Denies any cough, congestion, or runny nose. CARDIOPULMONARY: Reports chest pain and shortness of breath. GASTROINTESTINAL: Reflux. GENITOURINARY: Denies any dysuria or discharge. MUSCULOSKELETAL: Reports joint pains. -- OBJECTIVE -- VITALS (08/10 10:42 - 08/11 10:42): Temperature F: 98.0 (97.7 - 98.4) Temperature source: Oral Pulse Rate 86 (67 - 97) Respiratory rate: 25 (19 - 55) Blood pressure: 114/70 (66/45 - 120/73) Blood pressure source: Monitor I/Os (08/10 07:00 - 08/11 07:00): Net -526.30 Intake 573.70 Output 1,100 -EXAM- GENERAL: GENERAL: Elderly female, anxious, not in any acute distress. VITAL SIGNS: oxygen saturation 99% on room air. Weight is 61.3 kilograms. Body mass index 27.3. HEENT: Head is atraumatic. Pupils are reactive to light and accommodation. Extraocular muscles intact. NECK: Supple. No thyromegaly. No JVD. CARDIOVASCULAR: Regular rate and rhythm. LUNGS: Clear to auscultation. ABDOMEN: Soft, nondistended, nontender. No organomegaly. EXTREMITIES: No edema, cyanosis, or clubbing. Pedal pulses palpable. NEUROLOGIC: No focal deficit. -- DATA -- MEDICATIONS morphine SULFATE 2 MG IV Q2H PRN DEXTROSE 50%-WATER 25 ML IV ASDIR PRN ALBUTEROL SULFATE 2.5 MG NEB RTQ6H PRN LACTULOSE 30 ML PO BID PRN polyethylene glycoL 3350 1 PKT PO DAILY HEPARIN SODIUM,PORCINE 5000 UNIT IV ASDIR PRN LOSARTAN POTASSIUM 50 MG PO Q12HR NITROGLYCERIN 0.4 MG SL Q5M PRN ONDANSETRON HCL/PF 4 MG IV Q6H PRN FUROSEMIDE 40 MG IV DAILY@0700 ASPIRIN 81 MG PO DAILY METOPROLOL TARTRATE 5 MG IV Q6H PRN HYOSCYAMINE SULFATE 0.125 MG PO DAILY PRN DOCUSATE SODIUM 200 MG PO DAILY cloNIDine HCL 0.1 MG PO Q8H PRN LORazepam 0.5 MG PO Q6H PRN FAMOTIDINE 20 MG PO BID HYDROcodone BITARTRATE/APAP 1 TAB PO Q4H PRN ACETAMINOPHEN 650 MG PO Q6H PRN GLUCAGON 1 MG IM ASDIR PRN ONDANSETRON 4 MG PO Q6H PRN clonazePAM 0.5 MG PO BID MUPIROCIN 1 APPLIC NASAL BID MONTELUKAST SODIUM 10 MG PO DAILY@1800 HEPARIN SODIUM,PORCINE 2500 UNIT IV ASDIR PRN bisacodyL 10 MG RECTAL DAILY PRN HEPARIN PHARMACY TO MONITOR 1 EACH IV ASDIR ATORVASTATIN CALCIUM 80 MG PO DAILY HEPARIN/SOD CHLOR 0.45% 18376 UNITS IV TITRATE METOPROLOL SUCCINATE 25 MG PO Q12HR SODIUM CHLORIDE 0.9% 1000 ML IV .Q24H LABS TROPI (08/11/23 02:36) TROPONIN-I 146.4 *H PTT (08/11/23 02:36) THROMBOPLASTIN TIME PARTIAL 79.2 H PROTHROMBIN TIME (08/11/23 02:36) PROTHROMBIN TIME PATIENT 11.4 INTERNATIONAL NORMAL RATIO 1.02 CBC W/AUTO DIFF (08/11/23 02:36) WHITE BLOOD CELL 7.0 RED BLOOD CELL 3.53 L HEMOGLOBIN 10.4L L HEMATOCRIT 32.8L L MEAN CELL VOLUME 92.9 MEAN CELL HGB 29.5 MEAN CELL HGB CONCENTRATION 31.7 L RED CELL DISTRIBUTION WIDTH 14.8 PLATELET COUNT 235 MEAN PLATELET VOLUME 9.0 NEUTROPHIL % 57.5 LYMPHOCYTE % 27.7 MONOCYTE % 9.5 H EOSINOPHIL % 4.2 BASOPHIL % 0.7 NEUTROPHIL # 4.00 LYMPHOCYTE # 1.93 MONOCYTE # 0.66 EOSINOPHIL # 0.29 BASOPHIL # 0.05 MAG (08/11/23 02:36) MAGNESIUM 1.9 COMPREHENSIVE METABOLIC PANEL (08/11/23 02:36) SODIUM 140 POTASSIUM 3.9 CHLORIDE 108 H CARBON DIOXIDE 21 GLUCOSE 112 H BLOOD UREA NITROGEN 23 GLOMERULAR FILTRATION RATE 55 L CREATININE 1.00 TOTAL PROTEIN 6.1 ALBUMIN 3.9 CALCIUM 8.0 L BILIRUBIN TOTAL 1.0 SGOT/AST 18 SGPT/ALT < 7 L ALKALINE PHOSPHATASE 81.0 PHOS (08/11/23 02:36) PHOSPHOROUS 3.2 TROPI (08/10/23 15:48) TROPONIN-I 225.2 *H -- QUALITY -- -MEDICATIONS- - I attest that the foregoing medication list in the medical record is true, accurate, and complete to the best of my knowledge. -- ATTESTATION -- CARE ACTIVITIES / CARE COORDINATION: - I have reviewed the history and repeated the snyder elements - I have seen and examined this patient - I have reviewed the progress in the clinical course since the last examination - I have discussed the patient's condition with other members of the care team Signed in PatientKeeper by Marianne Mckay MD on 08/11/23 at 22:36 at 2236 ATTENTION *EDITS and/or ADDENDA must be made in Patient Keeper for this note. * * Edits and ammendments created in [employer] are not visible * * in Patient Keeper or the legal medical record (HPF). * RPT #: [id number] END OF REPORT [facility] 2023-08-11 08:26:00 [facility] ([facility]) Cardiology Progress Notes REPORT #: [id number] REPORT STATUS: Signed DATE: 08/11/23 TIME: 825 PATIENT: ROCK GOMEZ UNIT #: [id number] ROOM #: [id number] BED: A : 36 AGE: 88 SEX: F ATTEND: Marianne Mckay MD ADM AUTHOR: Lisa Wing DO CF1 ATTENTION *EDITS and/or ADDENDA must be made in Patient Keeper for this note. * * Edits and ammendments created in [employer] are not visible * * in Patient Keeper or the legal medical record (HPF). * -- CO-SIGNATURE -- COMMENTS: The patient was seen on rounds with Lisa Wing MD The patient has no complaints Examination demonstrates normal heart sounds and clear lung hwang. Impression and plan The patient is a 88-year-old female who has multivessel coronary artery disease who is not a good candidate for percutaneous coronary intervention given her anatomy. Cardiac surgery is excepted that they will take her for high risk bypass surgery. She is currently on good guideline directed medical therapy and is being diuresed for acute on chronic diastolic heart failure with non-ST elevation NC. The plan is for cardiac surgery with bypass surgery on August 16. The patient is still undergoing physical and occupational therapy prior to surgery. We will downgrade her to CV IMU until surgery is performed. Signed in PatientKeeper by YUE GARZA MD on 08/14/23 at 20:40 -- ASSESSMENT AND PLAN -- GENERAL ASSESSMENT: The patient is an 88-year-old female (patient of Dr. Gianna Ambrose) has a PMHx of coronary artery disease (s/p PCI with 3 ALEC), family history of coronary artery disease, carotid artery disease, hypertension, hyperlipidemia, h/o nicotine use, asthma, chronic bronchitis, anxiety. She has been having chest pressure radiating to her jaw and shortness of breath for the past 3 weeks. She was evaluated by her medical clinic manager, had stress test on 07/28/2023 what was abnormal, showed cardiomyopathy, an EF of 34%, severe inferolateral, posterolateral ischemia. Echocardiogram (06/2023) showed an EF 55-60%, moderate MR. She had coronary angiogram on 07/31/23 and showed three vessel coronary artery disease, torturous aorta with small abdominal aortic aneurysm. elevated LVEDP that is not amenable for PCI. She was evaluated by CV surgery, Dr. Montiel, for CABG. She presented at an outside hospital with complaint of chest pain radiating to her left jaw, diaphoresis and she was ruled in NSTEMI. She was transferred [facility] to [facility] for higher level of care. Chest x-ray showed interstitial and basilar airspace edema/infiltrates, cardiomegaly. Blood work showed troponin of 534.3, BNP 539, Mg 1.3. She denies chest pain, shortness of breath, palpitations now. PROBLEMS: 1: NSTEMI (non-ST elevated myocardial infarction) A/P: - cont on IV heparin - TTE 08/09/2023 LVEF 40-44%, moderate MR - CT chest w/o contrast showed RUL PNA, Right pleural effusion, Platelike atelectasis in the lower lobes. - On aspirin, atorvastatin 80mg daily, metoprolol XL 25mg BID - Cont on IV furosemide 40mg daily - cont to monitor and replete electrolytes - Clopidogrel discontinued, last dose taken on 08/08/23 per the patient - On PT/OT/IS - Plan for likely CABG per CV surgery week of 08/16/2023 - Okay to downgrade to CV IMU 08/11 -- SUBJECTIVE -- CHIEF COMPLAINT: AMELIA this AM. SAUNDRA overnight. No new complaints. Tele: NSR 82 bpm -REVIEW OF SYSTEMS- COMMENT: 10 point ROS negative unless noted. -- OBJECTIVE -- VITALS (08/10 08:26 - 08/11 08:26): Temperature F: 97.7 (97.7 - 98.4) Temperature source: Axillary Pulse Rate 86 (67 - 101) Respiratory rate: 25 (19 - 55) Blood pressure: 114/70 (66/45 - 150/82) Blood pressure source: Monitor I/Os (08/10 07:00 - 08/11 07:00): Net -526.30 Intake 573.70 Output 1,100 -EXAM- GENERAL: Well developed, well nourished, in no apparent distress. HEAD: Normocephalic, atraumatic. CHEST: Grossly normal appearance. LUNGS: Clear bilaterally with normal respiratory effort. HEART: Regular rate and rhythm, normal S1, S2, no murmurs ABDOMEN: Soft, non-tender EXTREMITIES: No clubbing, no cyanosis, no edema. NEUROLOGICAL: No focal deficits, cranial nerves II-XII grossly intact PULSES: Pulses normal in all extremities. SKIN: Intact without significant lesions, or rashes. PSYCHIATRIC: Alert and oriented to time, person, place. Normal mood and affect, intact judgment and insight. -- DATA -- MEDICATIONS morphine SULFATE 2 MG IV Q2H PRN DEXTROSE 50%-WATER 25 ML IV ASDIR PRN ALBUTEROL SULFATE 2.5 MG NEB RTQ6H PRN LACTULOSE 30 ML PO BID PRN polyethylene glycoL 3350 1 PKT PO DAILY POTASSIUM CHLORIDE 20 MEQ PO ASDIR PRN HEPARIN SODIUM,PORCINE 5000 UNIT IV ASDIR PRN MAGNESIUM SULFATE 4 G IV ASDIR (PRN) LOSARTAN POTASSIUM 50 MG PO Q12HR NITROGLYCERIN 0.4 MG SL Q5M PRN ONDANSETRON HCL/PF 4 MG IV Q6H PRN FUROSEMIDE 40 MG IV DAILY@0700 ASPIRIN 81 MG PO DAILY METOPROLOL TARTRATE 5 MG IV Q6H PRN HYOSCYAMINE SULFATE 0.125 MG PO DAILY PRN MAGNESIUM SULFATE 2 GM IV ASDIR (PRN) DOCUSATE SODIUM 200 MG PO DAILY cloNIDine HCL 0.1 MG PO Q8H PRN LORazepam 0.5 MG PO Q6H PRN HYDROcodone BITARTRATE/APAP 1 TAB PO Q4H PRN ACETAMINOPHEN 650 MG PO Q6H PRN SODIUM PHOSPHATE with/in SODIUM CHLORIDE 0.9% 30 MM IV ASDIR (PRN) GLUCAGON 1 MG IM ASDIR PRN FAMOTIDINE 20 MG PO BID ONDANSETRON 4 MG PO Q6H PRN clonazePAM 0.5 MG PO BID MUPIROCIN 1 APPLIC NASAL BID MONTELUKAST SODIUM 10 MG PO DAILY@1800 HEPARIN SODIUM,PORCINE 2500 UNIT IV ASDIR PRN bisacodyL 10 MG RECTAL DAILY PRN HEPARIN PHARMACY TO MONITOR 1 EACH IV ASDIR CALCIUM GLUC IN NACL, ISO-OSM 2 GM IV ASDIR PRN SODIUM PHOSPHATE with/in SODIUM CHLORIDE 0.9% 20 MM IV ASDIR (PRN) ATORVASTATIN CALCIUM 80 MG PO DAILY HEPARIN/SOD CHLOR 0.45% 90934 UNITS IV TITRATE METOPROLOL SUCCINATE 25 MG PO Q12HR SODIUM CHLORIDE 0.9% 1000 ML IV .Q24H LABS TROPI (08/11/23 02:36) TROPONIN-I 146.4 *H PTT (08/11/23 02:36) THROMBOPLASTIN TIME PARTIAL 79.2 H PROTHROMBIN TIME (08/11/23 02:36) PROTHROMBIN TIME PATIENT 11.4 INTERNATIONAL NORMAL RATIO 1.02 CBC W/AUTO DIFF (08/11/23 02:36) WHITE BLOOD CELL 7.0 RED BLOOD CELL 3.53 L HEMOGLOBIN 10.4L L HEMATOCRIT 32.8L L MEAN CELL VOLUME 92.9 MEAN CELL HGB 29.5 MEAN CELL HGB CONCENTRATION 31.7 L RED CELL DISTRIBUTION WIDTH 14.8 PLATELET COUNT 235 MEAN PLATELET VOLUME 9.0 NEUTROPHIL % 57.5 LYMPHOCYTE % 27.7 MONOCYTE % 9.5 H EOSINOPHIL % 4.2 BASOPHIL % 0.7 NEUTROPHIL # 4.00 LYMPHOCYTE # 1.93 MONOCYTE # 0.66 EOSINOPHIL # 0.29 BASOPHIL # 0.05 MAG (08/11/23 02:36) MAGNESIUM 1.9 COMPREHENSIVE METABOLIC PANEL (08/11/23 02:36) SODIUM 140 POTASSIUM 3.9 CHLORIDE 108 H CARBON DIOXIDE 21 GLUCOSE 112 H BLOOD UREA NITROGEN 23 GLOMERULAR FILTRATION RATE 55 L CREATININE 1.00 TOTAL PROTEIN 6.1 ALBUMIN 3.9 CALCIUM 8.0 L BILIRUBIN TOTAL 1.0 SGOT/AST 18 SGPT/ALT < 7 L ALKALINE PHOSPHATASE 81.0 PHOS (08/11/23 02:36) PHOSPHOROUS 3.2 TROPI (08/10/23 15:48) TROPONIN-I 225.2 *H Signed in PatientKeeper by LISA WING on 08/11/23 at 18:35 Cosigned by YUE GARZA MD on 08/14/23 at 20:40 at 2039 at 204 ATTENTION *EDITS and/or ADDENDA must be made in Patient Keeper for this note. * * Edits and ammendments created in [employer] are not visible * * in Patient Keeper or the legal medical record (HPF). * [facility] #: [id number] END OF REPORT [facility] 2023-08-11 06:07:00 [facility] ([facility]) Intensive Care Progress Note REPORT #: [id number] REPORT STATUS: Signed DATE: 08/11/23 TIME: 606 PATIENT: ROCK GOMEZ UNIT #: [id number] ROOM #: [facility] BED: 1 : 36 AGE: 88 SEX: F ATTEND: Marianne Mckay MD ADM AUTHOR: Orly Lopez MD ATTENTION *EDITS and/or ADDENDA must be made in Patient Keeper for this note. * * Edits and ammendments created in [employer] are not visible * * in Patient Keeper or the legal medical record ([facility]). * -- ASSESSMENT AND PLAN -- HOSPITAL COURSE TO DATE: Patient is an 88-year-old female with PMH notable for CAD s/p PCI ('12), HTN, anxiety, asthma, HLD, and osteoarthritis presenting as a transfer from [facility] for management of NSTEMI, and pending coronary bypass after Plavix washout. GENERAL ASSESSMENT: Plan: Pain/Sedation -Pain well controlled -Continue APAP/[place] PRN mild/severe pain, with morphine IV PRN breakthrough pain -Currently not requiring sedation, at goal RASS of 0 Neuro/Psych #Anxiety -H/o significant anxiety, now improved -Continue Klonopin 0.5mg BID, with home Ativan 0.5mg BID PRN -Delirium precautions Respiratory #Pulmonary Edema #Asthma (not in exacerbation) -2/2 decompensated heart failure -Remains on RA -Continue diuresis -Nebs PRN and Singulair -Encourage IS Cardiovascular #NSTEMI/ACS #Decompensated Heart Failure -Known h/o CAD s/p PCI, with newly diagnosed multi-vessel disease (80% proximal LAD lesion, 90% disease involving ostial/ proximal circ, distal RCA stent occlusion) -Most recent EF on [facility] 55%, f/u repeat TTE (read pending) -Continue ACS protocol with aspirin/high-dose statin, and heparin gtt -Hold Plavix in anticipation for possible surgical revascularization (last dose on 08/08), f/u P2Y12 function -Continue home antihypertensives (Toprol XL 25mg Q12H, losartan 50mg Q12H) -Cardiology and cardiothoracic surgery following, recommendations appreciated, plan for CAB next week Gastrointestinal -Continue cardiac diet -SUP, bowel regimen Renal -Renal function WNL -Strict I/O, monitor UOP -Lasix 40mg IV QD Infectious Disease -Concern for RUL pneumonia on CT chest, however patient afebrile, non-toxic appearing, on RA, and with low suspicion for sepsis -Will hold off on antibiotics for now, continue monitoring fever curve, low threshold to initiate empiric abx Endocrine -Maintain goal BS 140-180 -Hypoglycemia protocol HEME -H/H adequate, monitor while on heparin gtt -Transfuse for goal Hgb >8.0, platelets >10k or 20k with bleeding, and fibrinogen >150 MSK -PT/OT following PPX -DVT: Heparin gtt -GI: Pepcid BID GOC -Code: Full per patient -Advance Care Planning: None Dispo: Downgrade to CVIMU, care to be assumed by Dr Marianne Mckay, signout provided Medications reviewed with ICU pharmacist Orly Lopez MD Critical Care Medicine -- SUBJECTIVE -- PATIENT NARRATIVE: NAEON. Patient in good spirits today, denies anxiety, chest pain, SOB, palpitations, nausea/vomiting. Tolerating oral diet. -REVIEW OF SYSTEMS- GENERAL: Negative for fever, malaise, fatigue. EYES: Negative for blurry vision. No diplopia. EARS/NOSE/THROAT: Negative for sore throat. No otalgia. No rhinorrhea. BREAST: Negative for change in shape, swelling, masses, nipple discharge, pain, skin changes. RESPIRATORY: Negative for dyspnea or wheeze. No cough. CARDIOVASCULAR: Negative for chest pain or palpitations. No extremity swelling. GASTROINTESTINAL: Negative for abdominal pain or nausea. No emesis. No diarrhea. GENITOURINARY: Negative for dysuria, frequency, or urgency. No gross hematuria. MUSCULOSKELETAL: Negative for joint stiffness, pain, or arthralgias. SKIN: Negative for rashes. No pruritus. NEUROLOGICAL: Negative for headache. No vertigo. Denies paresthesias. PSYCHIATRIC: Negative for specific complaints. ENDOCRINE: Negative for cold intolerance, heat intolerance, polyphagia, polydipsia, polyuria, weight change, fatigue. HEMATALOGIC / LYMPHORETICULAR: Negative for excessive bleeding, unusual masses. ALLERGIC / IMMUNOLOGIC: Negative for heat/cold intolerance, polydipsia, or polyuria. -- OBJECTIVE -- VITALS (08/10 06:07 - 08/11 06:07): Temperature F: 97.7 (97.7 - 98.4) Temperature source: Axillary Pulse Rate 69 (67 - 114) Respiratory rate: 25 (19 - 55) Blood pressure: 93/54 (66/45 - 150/85) Blood pressure source: Monitor I/Os (08/09 07:00 - 08/10 07:00): Net 255.80 Intake 915.80 Output 660 -EXAM- OTHER: General: AAOx4, responds appropriately, follows commands, in NAD HEENT: NCAT, EOMI, clear conjunctiva, PERRLA, moist oral mucosa Neck: No JVD CV: RRR, no murmurs Lung: CTAB, unlabored breathing, trace rales, no wheezes, rhonchi GI: Soft, NT/ND, no rebound Neuro: No focal deficits appreciated MSK: 5/5 in all extremities Extremities: No edema and warm bilaterally Skin: No rashes or lesions Psych: Appropriate mood and affect -- DATA -- MEDICATIONS morphine SULFATE 2 MG IV Q2H PRN DEXTROSE 50%-WATER 25 ML IV ASDIR PRN ALBUTEROL SULFATE 2.5 MG NEB RTQ6H PRN LACTULOSE 30 ML PO BID PRN polyethylene glycoL 3350 1 PKT PO DAILY POTASSIUM CHLORIDE 20 MEQ PO ASDIR PRN HEPARIN SODIUM,PORCINE 5000 UNIT IV ASDIR PRN MAGNESIUM SULFATE 4 G IV ASDIR (PRN) LOSARTAN POTASSIUM 50 MG PO Q12HR NITROGLYCERIN 0.4 MG SL Q5M PRN ONDANSETRON HCL/PF 4 MG IV Q6H PRN FUROSEMIDE 40 MG IV DAILY@0700 ASPIRIN 81 MG PO DAILY METOPROLOL TARTRATE 5 MG IV Q6H PRN HYOSCYAMINE SULFATE 0.125 MG PO DAILY PRN MAGNESIUM SULFATE 2 GM IV ASDIR (PRN) DOCUSATE SODIUM 200 MG PO DAILY cloNIDine HCL 0.1 MG PO Q8H PRN LORazepam 0.5 MG PO Q6H PRN HYDROcodone BITARTRATE/APAP 1 TAB PO Q4H PRN ACETAMINOPHEN 650 MG PO Q6H PRN SODIUM PHOSPHATE with/in SODIUM CHLORIDE 0.9% 30 MM IV ASDIR (PRN) GLUCAGON 1 MG IM ASDIR PRN FAMOTIDINE 20 MG PO BID ONDANSETRON 4 MG PO Q6H PRN clonazePAM 0.5 MG PO BID MUPIROCIN 1 APPLIC NASAL BID MONTELUKAST SODIUM 10 MG PO DAILY@1800 HEPARIN SODIUM,PORCINE 2500 UNIT IV ASDIR PRN bisacodyL 10 MG RECTAL DAILY PRN HEPARIN PHARMACY TO MONITOR 1 EACH IV ASDIR CALCIUM GLUC IN NACL, ISO-OSM 2 GM IV ASDIR PRN SODIUM PHOSPHATE with/in SODIUM CHLORIDE 0.9% 20 MM IV ASDIR (PRN) ATORVASTATIN CALCIUM 80 MG PO DAILY HEPARIN/SOD CHLOR 0.45% 32322 UNITS IV TITRATE METOPROLOL SUCCINATE 25 MG PO Q12HR SODIUM CHLORIDE 0.9% 1000 ML IV .Q24H LABS TROPI (08/11/23 02:36) TROPONIN-I 146.4 *H PTT (08/11/23 02:36) THROMBOPLASTIN TIME PARTIAL 79.2 H PROTHROMBIN TIME (08/11/23 02:36) PROTHROMBIN TIME PATIENT 11.4 INTERNATIONAL NORMAL RATIO 1.02 CBC W/AUTO DIFF (08/11/23 02:36) WHITE BLOOD CELL 7.0 RED BLOOD CELL 3.53 L HEMOGLOBIN 10.4L L HEMATOCRIT 32.8L L MEAN CELL VOLUME 92.9 MEAN CELL HGB 29.5 MEAN CELL HGB CONCENTRATION 31.7 L RED CELL DISTRIBUTION WIDTH 14.8 PLATELET COUNT 235 MEAN PLATELET VOLUME 9.0 NEUTROPHIL % 57.5 LYMPHOCYTE % 27.7 MONOCYTE % 9.5 H EOSINOPHIL % 4.2 BASOPHIL % 0.7 NEUTROPHIL # 4.00 LYMPHOCYTE # 1.93 MONOCYTE # 0.66 EOSINOPHIL # 0.29 BASOPHIL # 0.05 MAG (08/11/23 02:36) MAGNESIUM 1.9 COMPREHENSIVE METABOLIC PANEL (08/11/23 02:36) SODIUM 140 POTASSIUM 3.9 CHLORIDE 108 H CARBON DIOXIDE 21 GLUCOSE 112 H BLOOD UREA NITROGEN 23 GLOMERULAR FILTRATION RATE 55 L CREATININE 1.00 TOTAL PROTEIN 6.1 ALBUMIN 3.9 CALCIUM 8.0 L BILIRUBIN TOTAL 1.0 SGOT/AST 18 SGPT/ALT < 7 L ALKALINE PHOSPHATASE 81.0 PHOS (08/11/23 02:36) PHOSPHOROUS 3.2 TROPI (08/10/23 15:48) TROPONIN-I 225.2 *H GLU BED (08/10/23 08:14) GLUBED 100 -- QUALITY -- -MEDICATIONS- - I attest that the foregoing medication list in the medical record is true, accurate, and complete to the best of my knowledge. -- ATTESTATION -- TIME SPENT ON PATIENT CARE: - Direct 32 minutes CARE ACTIVITIES / CARE COORDINATION: - I have reviewed the history and repeated the snyder elements - I have seen and examined this patient - I have reviewed the progress in the clinical course since the last examination - I have discussed the patient's condition with other members of the care team Signed in PatientKeeper by ORLY LOPEZ MD on 08/11/23 at 10:06 at 1006 ATTENTION *EDITS and/or ADDENDA must be made in Patient Keeper for this note. * * Edits and ammendments created in [facility] are not visible * * in Patient Keeper or the legal medical record (HPF). * RPT #: [id number] END OF REPORT [facility] 2023-08-10 10:21:00 [facility] Hospitalist Progress Note REPORT #: [id number] REPORT STATUS: Signed DATE: 08/10/23 TIME: 1021 PATIENT: ROCK GOMEZ UNIT #: [id number] ROOM #: [id number] BED: 1 : 36 AGE: 88 SEX: F ATTEND: Marianne Mckay MD ADM AUTHOR: Marianne Mckay MD ATTENTION *EDITS and/or ADDENDA must be made in Patient Keeper for this note. * * Edits and ammendments created in [employer] are not visible * * in Patient Keeper or the legal medical record (HPF). * -- ASSESSMENT AND PLAN -- GENERAL ASSESSMENT: ASSESSMENT AND PLAN: 1. Non-ST segment elevation myocardial infarction in a patient with a known history of severe multivessel coronary artery disease including proximal 80% LAD, 90% ostial and proximal circumflex and distal RCA with stent occlusion, preserved left ventricular ejection fraction on angiogram. The patient has recently been evaluated by Dr. King Montiel of Cardiothoracic Surgery services for consideration of coronary artery bypass and grafting. We will continue aspirin, heparin, beta blockers, statins and nitroglycerin. Her last dose of Plavix was on 08/08/2023 and will need a washout prior to surgical intervention. Repeat 2D echocardiogram. Observe in the ICU. 2. Pulmonary edema, related to decompensated diastolic congestive cardiac failure. Cautious use of diuretics. 3. Hypertension. Continue metoprolol and losartan. 4. Hyperlipidemia. Total cholesterol 226, HDL 90, LDL 139, triglycerides 121. Continue atorvastatin 80 mg daily. 5. Hypomagnesemia, replete. 6. Asthma. Continue montelukast. 7. Anxiety, not otherwise specified. Continue lorazepam. 8. Acute exacerbation of likely diastolic congestive heart failure. Diurese as above. 9. Osteoarthritis, avoid nonsteroidals. 10. Chronic kidney disease, stage II. ADDITIONAL COMMENTS: Await recommendations from cardiology and cardiothoracic surgery services. Continue guideline directed medical therapy including heparin. -- SUBJECTIVE -- HPI: This 88-year-old female, a patient of Dr. Gianna Ambrose, has a past medical history significant for hypertension, hyperlipidemia, asthma, anxiety, chronic bronchitis, and coronary artery disease, status post angioplasty in 2011. A few weeks ago, the patient developed new onset of jaw pain and dyspnea, and noninvasive cardiac workup by Dr. Ambrose including a nuclear stress test showed an ejection fraction of 34% with severe inferolateral and posterolateral ischemia, a change from a previously normal ejection fraction of 55% to 60% in 06/2023. Subsequent coronary angiogram on 07/31/2023 showed severe multivessel coronary artery disease including 80% proximal LAD, 90% ostial and proximal circumflex, heavily calcified RCA with a distal occluded stent, and an ejection fraction during the heart catheterization to be 55%, elevated left ventricular end diastolic pressure at 33. The patient was evaluated by Dr. King Montiel of Cardiothoracic Surgery services on 08/06 and discussions were underway as regards to possible bypass surgery. Since that time, the patient has had increased anxiety about the possibility of undergoing bypass surgery and has not been able to sleep or rest well. On the morning of admission, she developed central chest pressure with radiation to the jaw and worsening shortness of breath. She presented to the [facility] in [place], [place], where troponin was elevated to 300 range and EKG was negative for ST elevation. She was also found to be in fluid overload, started on ACS protocol, heparin, Lasix and transferred to the [facility] for higher level of care. Troponin has trended up 530 and BNP 539, and chest x-ray shows interstitial pulmonary edema/infiltrates. She is being admitted to the intensive care unit for further evaluation and management. PATIENT NARRATIVE: 08/10: No acute events overnight. No significant chest pain or shortness of breath. Anxious. Troponin is trending down. On intravenous heparin, beta-blockers aspirin and statins. Plavix is on hold in case the patient goes for CABG. Cardiology and cardiothoracic surgery services following. Await further recommendations -REVIEW OF SYSTEMS- GENERAL: CONSTITUTIONAL: Fatigue and tiredness. No fever or chills. HEENT: Denies any cough, congestion, or runny nose. CARDIOPULMONARY: Reports chest pain and shortness of breath. GASTROINTESTINAL: Reflux. GENITOURINARY: Denies any dysuria or discharge. MUSCULOSKELETAL: Reports joint pains. -- OBJECTIVE -- VITALS (08/09 10:21 - 08/10 10:21): Temperature F: 97.7 (97.5 - 98.0) Temperature source: Oral Pulse Rate 101 (65 - 114) Respiratory rate: 37 (18 - 40) Blood pressure: 150/82 (99/60 - 161/99) Blood pressure source: Monitor I/Os (08/09 07:00 - 08/10 07:00): Net 255.80 Intake 915.80 Output 660 -EXAM- GENERAL: GENERAL: Elderly female, anxious, not in any acute distress. VITAL SIGNS: oxygen saturation 99% on room air. Weight is 61.3 kilograms. Body mass index 27.3. HEENT: Head is atraumatic. Pupils are reactive to light and accommodation. Extraocular muscles intact. NECK: Supple. No thyromegaly. No JVD. CARDIOVASCULAR: Regular rate and rhythm. LUNGS: Clear to auscultation. ABDOMEN: Soft, nondistended, nontender. No organomegaly. EXTREMITIES: No edema, cyanosis, or clubbing. Pedal pulses palpable. NEUROLOGIC: No focal deficit. -- DATA -- MEDICATIONS polyethylene glycoL 3350 1 PKT PO DAILY POTASSIUM CHLORIDE 20 MEQ PO ASDIR PRN HEPARIN SODIUM,PORCINE LEAVE DOSE FIELD ZERO ASDIR PRN LOSARTAN POTASSIUM 50 MG PO Q12HR FUROSEMIDE 40 MG IV DAILY@0700 ASPIRIN 81 MG PO DAILY DOCUSATE SODIUM 200 MG PO DAILY cloNIDine HCL 0.1 MG PO Q8H PRN ACETAMINOPHEN 650 MG PO Q6H PRN SODIUM PHOSPHATE with/in SODIUM CHLORIDE 0.9% 30 MM IV ASDIR (PRN) GLUCAGON 1 MG IM ASDIR PRN ONDANSETRON 4 MG PO Q6H PRN MUPIROCIN 1 APPLIC NASAL BID HYOSCYAMINE SULFATE 0.125 MG PO BID MONTELUKAST SODIUM 10 MG PO DAILY@1800 HEPARIN SODIUM,PORCINE LEAVE DOSE FIELD ZERO ASDIR PRN SODIUM PHOSPHATE with/in SODIUM CHLORIDE 0.9% 20 MM IV ASDIR (PRN) ATORVASTATIN CALCIUM 80 MG PO DAILY METOPROLOL SUCCINATE 25 MG PO Q12HR SODIUM CHLORIDE 0.9% 1000 ML IV .Q24H morphine SULFATE 2 MG IV Q2H PRN DEXTROSE 50%-WATER 25 ML IV ASDIR PRN ALBUTEROL SULFATE 2.5 MG NEB RTQ6H PRN LACTULOSE 30 ML PO BID PRN MAGNESIUM SULFATE 4 G IV ASDIR (PRN) NITROGLYCERIN 0.4 MG SL Q5M PRN ONDANSETRON HCL/PF 4 MG IV Q6H PRN METOPROLOL TARTRATE 5 MG IV Q6H PRN MAGNESIUM SULFATE 2 GM IV ASDIR (PRN) LORazepam 0.5 MG PO Q6H PRN HYDROcodone BITARTRATE/APAP 1 TAB PO Q4H PRN FAMOTIDINE 20 MG PO BID clonazePAM 0.5 MG PO BID bisacodyL 10 MG RECTAL DAILY PRN HEPARIN PHARMACY TO MONITOR 1 EACH IV ASDIR CALCIUM GLUC IN NACL, ISO-OSM 2 GM IV ASDIR PRN INSULIN LISPRO 0 UNITS SUBQ C MEALS HS LABS GLU BED (08/10/23 08:14) GLUBED 100 COVID Asymp Ag (08/10/23 02:51) COVID 19 Asymptomatic IH AG NEGATIVE COMPREHENSIVE METABOLIC PANEL (08/10/23 02:50) SODIUM 142 POTASSIUM 3.3 L CHLORIDE 107 CARBON DIOXIDE 27 GLUCOSE 98 BLOOD UREA NITROGEN 16 GLOMERULAR FILTRATION RATE >=60 max estimate CREATININE 0.90 TOTAL PROTEIN 6.3 ALBUMIN 3.9 CALCIUM 7.9 L BILIRUBIN TOTAL 1.3 H SGOT/AST 18 SGPT/ALT < 7 L ALKALINE PHOSPHATASE 77.0 PTT (08/10/23 02:50) THROMBOPLASTIN TIME PARTIAL 90.8 D H CBC W/AUTO DIFF (08/10/23 02:50) WHITE BLOOD CELL 6.0 RED BLOOD CELL 3.73 L HEMOGLOBIN 10.9L L HEMATOCRIT 33.9L L MEAN CELL VOLUME 90.9 MEAN CELL HGB 29.2 MEAN CELL HGB CONCENTRATION 32.2 L RED CELL DISTRIBUTION WIDTH 14.5 PLATELET COUNT 266 MEAN PLATELET VOLUME 9.1 NEUTROPHIL % 52.3 LYMPHOCYTE % 33.7 MONOCYTE % 9.0 EOSINOPHIL % 3.5 BASOPHIL % 1.2 NEUTROPHIL # 3.13 LYMPHOCYTE # 2.02 MONOCYTE # 0.54 EOSINOPHIL # 0.21 BASOPHIL # 0.07 PHOS (08/10/23 02:50) PHOSPHOROUS 3.2 BNP (08/10/23 02:50) B-TYPE NATRIURETIC PEPTIDE 679 H MAG (08/10/23 02:50) MAGNESIUM 2.3 PROTHROMBIN TIME (08/10/23 02:50) PROTHROMBIN TIME PATIENT 12.1 INTERNATIONAL NORMAL RATIO 1.08 GLU BED (08/09/23 21:36) GLUBED 103 PTT (08/09/23 16:30) THROMBOPLASTIN TIME PARTIAL 71.0 H TROPI (08/09/23 16:30) TROPONIN-I 524.6 *H HGBA1C - GLYCOSYLATED HGB (08/09/23 14:31) GLYCOSYLATED HEMOGLOBIN (HA1C) 5.0 TROPI (08/09/23 14:31) TROPONIN-I 531.5 *H -- QUALITY -- -MEDICATIONS- - I attest that the foregoing medication list in the medical record is true, accurate, and complete to the best of my knowledge. -- ATTESTATION -- CARE ACTIVITIES / CARE COORDINATION: - I have reviewed the history and repeated the snyder elements - I have seen and examined this patient - I have reviewed the progress in the clinical course since the last examination - I have discussed the patient's condition with other members of the care team Signed in PatientKeeper by Marianne Mckay MD on 08/10/23 at 18:35 at 1835 ATTENTION *EDITS and/or ADDENDA must be made in Patient Keeper for this note. * * Edits and ammendments created in [employer] are not visible * * in Patient Keeper or the legal medical record (HPF). * RPT #: [id number] END OF REPORT [facility] 2023-08-10 08:03:00 [facility] ([facility]) Cardiology Progress Notes REPORT #: [id number] REPORT STATUS: Draft DATE: 08/10/23 TIME: 802 PATIENT: ROCK GOMEZ UNIT #: [id number] ROOM #: P.0318 BED: 1 : 36 AGE: 88 SEX: F ATTEND: Marianne Mckay MD ADM AUTHOR: Lisa Wing DO [facility] ATTENTION *EDITS and/or ADDENDA must be made in Patient Keeper for this note. * * Edits and ammendments created in [employer] are not visible * * in Patient Keeper or the legal medical record (HPF). * -- CO-SIGNATURE -- COMMENTS: The patient was seen on rounds with Lisa Wing MD The patient has no complaints Examination demonstrates normal heart sounds and clear lung hwang. Impression and plan The patient is a 88-year-old female who has multivessel coronary artery disease who is not a good candidate for percutaneous coronary intervention given her anatomy. Cardiac surgery is excepted that they will take her for high risk bypass surgery. She is currently on good guideline directed medical therapy and is being diuresed for acute on chronic diastolic heart failure with non-ST elevation NC. We will follow patient closely in the CVICU. Signed in PatientKeeper by YUE GARZA MD on 08/14/23 at 20:40 -- ASSESSMENT AND PLAN -- GENERAL ASSESSMENT: The patient is an 88-year-old female (patient of Dr. Gianna Ambrose) has a PMHx of coronary artery disease (s/p PCI with 3 ALEC), family history of coronary artery disease, carotid artery disease, hypertension, hyperlipidemia, h/o nicotine use, asthma, chronic bronchitis, anxiety. She has been having chest pressure radiating to her jaw and shortness of breath for the past 3 weeks. She was evaluated by her medical clinic manager, had stress test on 07/28/2023 what was abnormal, showed cardiomyopathy, an EF of 34%, severe inferolateral, posterolateral ischemia. Echocardiogram (06/2023) showed an EF 55-60%, moderate MR. She had coronary angiogram on 07/31/23 and showed three vessel coronary artery disease, torturous aorta with small abdominal aortic aneurysm. elevated LVEDP that is not amenable for PCI. She was evaluated by CV surgery, Dr. Montiel, for CABG. She presented at an outside hospital with complaint of chest pain radiating to her left jaw, diaphoresis and she was ruled in NSTEMI. She was transferred [facility] to [facility] for higher level of care. Chest x-ray showed interstitial and basilar airspace edema/infiltrates, cardiomegaly. Blood work showed troponin of 534.3, BNP 539, Mg 1.3. She denies chest pain, shortness of breath, palpitations now. PROBLEMS: 1: NSTEMI (non-ST elevated myocardial infarction) A/P: - cont on IV heparin - Echo pending - CT chest w/o contrast showed RUL PNA, Right pleural effusion, Platelike atelectasis in the lower lobes. - Plan for CABG per CV surgery - On aspirin, atorvastatin 80mg daily, metoprolol XL 25mg BID - Cont on IV furosemide 40mg daily - cont to monitor and replete electrolytes - Clopidogrel discontinued, last dose taken on 08/08/23 per the patient - On PT/OT/IS - Spoke with Dr. Montiel and the patient will be admitted to CVICU for closer observation -- SUBJECTIVE -- CHIEF COMPLAINT: AMELIA this AM. SAUNDRA overnight. No new complaints. Tele: NSR 82bpm -REVIEW OF SYSTEMS- COMMENT: 10 point ROS negative unless noted. -- OBJECTIVE -- VITALS (08/09 08:03 - 08/10 08:03): Temperature F: 98.0 (97.5 - 98.0) Temperature source: Oral Pulse Rate 84 (65 - 109) Respiratory rate: 34 (18 - 34) Blood pressure: 125/73 (99/60 - 161/99) Blood pressure source: Monitor I/Os (08/09 07:00 - 08/10 07:00): Net 255.80 Intake 915.80 Output 660 -EXAM- GENERAL: Well developed, well nourished, in no apparent distress. HEAD: Normocephalic, atraumatic. EYES: PERRL, EOM intact, conjunctiva and sclera clear NOSE: No deformity, no discharge MOUTH: Oropharynx without deformities or lesions, normal mucosa. CHEST: Grossly normal appearance. LUNGS: Clear bilaterally with normal respiratory effort. HEART: Regular rate and rhythm, normal S1, S2, no murmurs ABDOMEN: Soft, non-tender EXTREMITIES: No clubbing, no cyanosis, no edema. NEUROLOGICAL: No focal deficits, cranial nerves II-XII grossly intact PULSES: Pulses normal in all extremities. SKIN: Intact without significant lesions, or rashes. LYMPH NODES: No significant cervical node adenopathy. PSYCHIATRIC: Alert and oriented to time, person, place. Normal mood and affect, intact judgment and insight. -- DATA -- MEDICATIONS morphine SULFATE 2 MG IV Q2H PRN DEXTROSE 50%-WATER 25 ML IV ASDIR PRN ALBUTEROL SULFATE 2.5 MG NEB RTQ6H PRN LACTULOSE 30 ML PO BID PRN polyethylene glycoL 3350 1 PKT PO DAILY POTASSIUM CHLORIDE 20 MEQ PO ASDIR PRN MAGNESIUM SULFATE 4 G IV ASDIR (PRN) LOSARTAN POTASSIUM 50 MG PO Q12HR NITROGLYCERIN 0.4 MG SL Q5M PRN ONDANSETRON HCL/PF 4 MG IV Q6H PRN FUROSEMIDE 40 MG IV DAILY@0700 ASPIRIN 81 MG PO DAILY METOPROLOL TARTRATE 5 MG IV Q6H PRN MAGNESIUM SULFATE 2 GM IV ASDIR (PRN) DOCUSATE SODIUM 200 MG PO DAILY cloNIDine HCL 0.1 MG PO Q8H PRN LORazepam 0.5 MG PO Q6H PRN HYDROcodone BITARTRATE/APAP 1 TAB PO Q4H PRN HEPARIN/SOD CHLOR 0.45% 84427 UNITS IV TITRATE ACETAMINOPHEN 650 MG PO Q6H PRN SODIUM PHOSPHATE with/in SODIUM CHLORIDE 0.9% 30 MM IV ASDIR (PRN) GLUCAGON 1 MG IM ASDIR PRN FAMOTIDINE 20 MG PO BID ONDANSETRON 4 MG PO Q6H PRN clonazePAM 0.5 MG PO BID MUPIROCIN 1 APPLIC NASAL BID HYOSCYAMINE SULFATE 0.125 MG PO BID MONTELUKAST SODIUM 10 MG PO DAILY@1800 bisacodyL 10 MG RECTAL DAILY PRN HEPARIN PHARMACY TO MONITOR 1 EACH IV ASDIR CALCIUM GLUC IN NACL, ISO-OSM 2 GM IV ASDIR PRN SODIUM PHOSPHATE with/in SODIUM CHLORIDE 0.9% 20 MM IV ASDIR (PRN) INSULIN LISPRO 0 UNITS SUBQ C MEALS HS ATORVASTATIN CALCIUM 80 MG PO DAILY METOPROLOL SUCCINATE 25 MG PO Q12HR LABS COVID Asymp Ag (08/10/23 02:51) COVID 19 Asymptomatic IH AG NEGATIVE COMPREHENSIVE METABOLIC PANEL (08/10/23 02:50) SODIUM 142 POTASSIUM 3.3 L CHLORIDE 107 CARBON DIOXIDE 27 GLUCOSE 98 BLOOD UREA NITROGEN 16 GLOMERULAR FILTRATION RATE >=60 max estimate CREATININE 0.90 TOTAL PROTEIN 6.3 ALBUMIN 3.9 CALCIUM 7.9 L BILIRUBIN TOTAL 1.3 H SGOT/AST 18 SGPT/ALT < 7 L ALKALINE PHOSPHATASE 77.0 PTT (08/10/23 02:50) THROMBOPLASTIN TIME PARTIAL 90.8 D H CBC W/AUTO DIFF (08/10/23 02:50) WHITE BLOOD CELL 6.0 RED BLOOD CELL 3.73 L HEMOGLOBIN 10.9L L HEMATOCRIT 33.9L L MEAN CELL VOLUME 90.9 MEAN CELL HGB 29.2 MEAN CELL HGB CONCENTRATION 32.2 L RED CELL DISTRIBUTION WIDTH 14.5 PLATELET COUNT 266 MEAN PLATELET VOLUME 9.1 NEUTROPHIL % 52.3 LYMPHOCYTE % 33.7 MONOCYTE % 9.0 EOSINOPHIL % 3.5 BASOPHIL % 1.2 NEUTROPHIL # 3.13 LYMPHOCYTE # 2.02 MONOCYTE # 0.54 EOSINOPHIL # 0.21 BASOPHIL # 0.07 PHOS (08/10/23 02:50) PHOSPHOROUS 3.2 BNP (08/10/23 02:50) B-TYPE NATRIURETIC PEPTIDE 679 H MAG (08/10/23 02:50) MAGNESIUM 2.3 PROTHROMBIN TIME (08/10/23 02:50) PROTHROMBIN TIME PATIENT 12.1 INTERNATIONAL NORMAL RATIO 1.08 GLU BED (08/09/23 21:36) GLUBED 103 PTT (08/09/23 16:30) THROMBOPLASTIN TIME PARTIAL 71.0 H TROPI (08/09/23 16:30) TROPONIN-I 524.6 *H HGBA1C - GLYCOSYLATED HGB (08/09/23 14:31) GLYCOSYLATED HEMOGLOBIN (HA1C) 5.0 TROPI (08/09/23 14:31) TROPONIN-I 531.5 *H Signed in PatientKeeper by LISA WING on 08/10/23 at 19:05 Cosigned by YUE GARZA MD on 08/14/23 at 20:40 at 2039 at 2039 ATTENTION *EDITS and/or ADDENDA must be made in Patient Keeper for this note. * * Edits and ammendments created in [employer] are not visible * * in Patient Keeper or the legal medical record (HPF). * RPT #: [id number] END OF REPORT [facility] 2023-08-10 07:10:00 [facility] ([facility]) Intensive Care Progress Note REPORT #: [id number] REPORT STATUS: Signed DATE: 08/10/23 TIME: 709 PATIENT: ROCK GOMEZ UNIT #: [id number] ROOM #: [facility] BED: 1 : 36 AGE: 88 SEX: F ATTEND: Marianne Mckay MD ADM AUTHOR: Orly Lopez MD ATTENTION *EDITS and/or ADDENDA must be made in Patient Keeper for this note. * * Edits and ammendments created in [employer] are not visible * * in Patient Keeper or the legal medical record (HPF). * -- ASSESSMENT AND PLAN -- HOSPITAL COURSE TO DATE: Patient is an 88-year-old female with PMH notable for CAD s/p PCI ('12), HTN, anxiety, asthma, HLD, and osteoarthritis presenting as a transfer from [facility] for management of NSTEMI, and pending coronary bypass after Plavix washout. GENERAL ASSESSMENT: Plan: Pain/Sedation -Pain currently well controlled -Continue APAP/[place] PRN mild/severe pain, with morphine IV PRN breakthrough pain -Currently not requiring sedation, at goal RASS of 0 Neuro/Psych #Anxiety -H/o significant anxiety, now improved -Continue Klonopin 0.5mg BID, with home Ativan 0.5mg BID PRN -Delirium precautions Respiratory #Pulmonary Edema #Asthma (not in exacerbation) -2/2 decompensated heart failure -Remains on RA -Continue diuresis -Nebs PRN and Singulair -Encourage IS Cardiovascular #NSTEMI/ACS #Decompensated Heart Failure -Known h/o CAD s/p PCI, with newly diagnosed multi-vessel disease (80% proximal LAD lesion, 90% disease involving ostial/ proximal circ, distal RCA stent occlusion) -Most recent EF on C 55%, f/u repeat TTE -Continue ACS protocol with aspirin/high-dose statin, and heparin gtt -Hold Plavix in anticipation for possible surgical revascularization (last dose on 08/08) -Continue home antihypertensives (Toprol XL 25mg Q12H, losartan 50mg Q12H) -Continue ICU level care for preop optimization; pre-op CT chest, carotid US, and vein mapping ordered -Cardiology and cardiothoracic surgery following, recommendations appreciated Gastrointestinal -Continue cardiac diet -SUP, bowel regimen Renal -Renal function WNL -Strict I/O, monitor UOP -Lasix 40mg IV QD -ICU electrolyte protocol ordered, maintain K >4.0, Phos >3.0, Mg >2.0 Infectious Disease -Concern for RUL pneumonia on CT chest, however patient afebrile, non-toxic appearing, on RA, and with low suspicion for sepsis -Will hold off on antibiotics for now, continue monitoring fever curve, low threshold to initiate empiric abx Endocrine -Maintain goal BS 140-180 -Hypoglycemia protocol HEME -H/H adequate, monitor while on heparin gtt -Transfuse for goal Hgb >8.0, platelets >10k or 20k with bleeding, and fibrinogen >150 MSK -PT/OT following PPX -DVT: Heparin gtt -GI: Pepcid BID GOC -Code: Full per patient -Advance Care Planning: None Dispo: Continue ICU level care Medications reviewed with ICU pharmacist Patient is critically ill and at risk of imminent life threatening injury or Orly Lopez MD Critical Care Medicine -- SUBJECTIVE -- PATIENT NARRATIVE: Troponin peaked overnight. Patient denies chest pain/pressure, SOB, or other complaints. Reports anxiety significantly improved. -REVIEW OF SYSTEMS- GENERAL: Negative for fever, malaise, fatigue. EYES: Negative for blurry vision. No diplopia. EARS/NOSE/THROAT: Negative for sore throat. No otalgia. No rhinorrhea. BREAST: Negative for change in shape, swelling, masses, nipple discharge, pain, skin changes. RESPIRATORY: Negative for dyspnea or wheeze. No cough. CARDIOVASCULAR: Negative for chest pain or palpitations. No extremity swelling. GASTROINTESTINAL: Negative for abdominal pain or nausea. No emesis. No diarrhea. GENITOURINARY: Negative for dysuria, frequency, or urgency. No gross hematuria. MUSCULOSKELETAL: Negative for joint stiffness, pain, or arthralgias. SKIN: Negative for rashes. No pruritus. NEUROLOGICAL: Negative for headache. No vertigo. Denies paresthesias. PSYCHIATRIC: Negative for specific complaints. ENDOCRINE: Negative for cold intolerance, heat intolerance, polyphagia, polydipsia, polyuria, weight change, fatigue. HEMATALOGIC / LYMPHORETICULAR: Negative for excessive bleeding, unusual masses. ALLERGIC / IMMUNOLOGIC: Negative for heat/cold intolerance, polydipsia, or polyuria. -- OBJECTIVE -- VITALS (08/09 07:10 - 08/10 07:10): Temperature F: 98.0 (97.5 - 98.0) Temperature C: 36.4 Temperature source: Oral Pulse Rate 84 (65 - 109) Respiratory rate: 34 (18 - 34) Blood pressure: 125/73 (99/60 - 161/99) Blood pressure source: Monitor I/Os (08/09 07:00 - 08/10 07:00): Net 255.80 Intake 915.80 Output 660 -EXAM- OTHER: General: AAOx4, responds appropriately, follows commands, in NAD HEENT: NCAT, EOMI, clear conjunctiva, PERRLA, moist oral mucosa Neck: No JVD CV: RRR, no murmurs Lung: CTAB, unlabored breathing, trace rales, no wheezes, rhonchi GI: Soft, NT/ND, no rebound Neuro: No focal deficits appreciated MSK: 5/5 in all extremities Extremities: No edema and warm bilaterally Skin: No rashes or lesions Psych: Appropriate mood and affect -- DATA -- MEDICATIONS morphine SULFATE 2 MG IV Q2H PRN DEXTROSE 50%-WATER 25 ML IV ASDIR PRN ALBUTEROL SULFATE 2.5 MG NEB RTQ6H PRN LACTULOSE 30 ML PO BID PRN polyethylene glycoL 3350 1 PKT PO DAILY POTASSIUM CHLORIDE 20 MEQ PO ASDIR PRN MAGNESIUM SULFATE 4 G IV ASDIR (PRN) LOSARTAN POTASSIUM 50 MG PO Q12HR NITROGLYCERIN 0.4 MG SL Q5M PRN ONDANSETRON HCL/PF 4 MG IV Q6H PRN FUROSEMIDE 40 MG IV DAILY@0700 ASPIRIN 81 MG PO DAILY METOPROLOL TARTRATE 5 MG IV Q6H PRN MAGNESIUM SULFATE 2 GM IV ASDIR (PRN) DOCUSATE SODIUM 200 MG PO DAILY cloNIDine HCL 0.1 MG PO Q8H PRN LORazepam 0.5 MG PO Q6H PRN HYDROcodone BITARTRATE/APAP 1 TAB PO Q4H PRN HEPARIN/SOD CHLOR 0.45% 55130 UNITS IV TITRATE ACETAMINOPHEN 650 MG PO Q6H PRN SODIUM PHOSPHATE with/in SODIUM CHLORIDE 0.9% 30 MM IV ASDIR (PRN) GLUCAGON 1 MG IM ASDIR PRN FAMOTIDINE 20 MG PO BID ONDANSETRON 4 MG PO Q6H PRN clonazePAM 0.5 MG PO BID MUPIROCIN 1 APPLIC NASAL BID HYOSCYAMINE SULFATE 0.125 MG PO BID MONTELUKAST SODIUM 10 MG PO DAILY@1800 bisacodyL 10 MG RECTAL DAILY PRN HEPARIN PHARMACY TO MONITOR 1 EACH IV ASDIR CALCIUM GLUC IN NACL, ISO-OSM 2 GM IV ASDIR PRN SODIUM PHOSPHATE with/in SODIUM CHLORIDE 0.9% 20 MM IV ASDIR (PRN) INSULIN LISPRO 0 UNITS SUBQ C MEALS HS ATORVASTATIN CALCIUM 80 MG PO DAILY METOPROLOL SUCCINATE 25 MG PO Q12HR LABS COVID Asymp Ag (08/10/23 02:51) COVID 19 Asymptomatic IH AG NEGATIVE COMPREHENSIVE METABOLIC PANEL (08/10/23 02:50) SODIUM 142 POTASSIUM 3.3 L CHLORIDE 107 CARBON DIOXIDE 27 GLUCOSE 98 BLOOD UREA NITROGEN 16 GLOMERULAR FILTRATION RATE >=60 max estimate CREATININE 0.90 TOTAL PROTEIN 6.3 ALBUMIN 3.9 CALCIUM 7.9 L BILIRUBIN TOTAL 1.3 H SGOT/AST 18 SGPT/ALT < 7 L ALKALINE PHOSPHATASE 77.0 PTT (08/10/23 02:50) THROMBOPLASTIN TIME PARTIAL 90.8 D H CBC W/AUTO DIFF (08/10/23 02:50) WHITE BLOOD CELL 6.0 RED BLOOD CELL 3.73 L HEMOGLOBIN 10.9L L HEMATOCRIT 33.9L L MEAN CELL VOLUME 90.9 MEAN CELL HGB 29.2 MEAN CELL HGB CONCENTRATION 32.2 L RED CELL DISTRIBUTION WIDTH 14.5 PLATELET COUNT 266 MEAN PLATELET VOLUME 9.1 NEUTROPHIL % 52.3 LYMPHOCYTE % 33.7 MONOCYTE % 9.0 EOSINOPHIL % 3.5 BASOPHIL % 1.2 NEUTROPHIL # 3.13 LYMPHOCYTE # 2.02 MONOCYTE # 0.54 EOSINOPHIL # 0.21 BASOPHIL # 0.07 PHOS (08/10/23 02:50) PHOSPHOROUS 3.2 BNP (08/10/23 02:50) B-TYPE NATRIURETIC PEPTIDE 679 H MAG (08/10/23 02:50) MAGNESIUM 2.3 PROTHROMBIN TIME (08/10/23 02:50) PROTHROMBIN TIME PATIENT 12.1 INTERNATIONAL NORMAL RATIO 1.08 GLU BED (08/09/23 21:36) GLUBED 103 PTT (08/09/23 16:30) THROMBOPLASTIN TIME PARTIAL 71.0 H TROPI (08/09/23 16:30) TROPONIN-I 524.6 *H HGBA1C - GLYCOSYLATED HGB (08/09/23 14:31) GLYCOSYLATED HEMOGLOBIN (HA1C) 5.0 TROPI (08/09/23 14:31) TROPONIN-I 531.5 *H PROTHROMBIN TIME (08/09/23 07:59) PROTHROMBIN TIME PATIENT 11.9 INTERNATIONAL NORMAL RATIO 1.06 MAG (08/09/23 07:59) MAGNESIUM 1.3 L LIPID PROFILE (CORONARY RISK) (08/09/23 07:59) TRIGLYCERIDES 121 CHOLESTEROL 226 H HDL CHOLESTEROL 90 LIPOPROTEIN LDL 139 H CORONARY RISK FACTOR 2.51 BASIC METABOLIC PANEL (08/09/23 07:59) SODIUM 143 POTASSIUM 3.8 CHLORIDE 109H H CARBON DIOXIDE 26 GLUCOSE 92 BLOOD UREA NITROGEN 15 GLOMERULAR FILTRATION RATE >=60 max estimate CREATININE 0.80 CALCIUM 8.4 L PTT (08/09/23 07:59) THROMBOPLASTIN TIME PARTIAL 77.7 H TROPI (08/09/23 07:59) TROPONIN-I 534.3 *H BNP (08/09/23 07:59) B-TYPE NATRIURETIC PEPTIDE 539 H CBC W/AUTO DIFF (08/09/23 07:54) WHITE BLOOD CELL 8.6 RED BLOOD CELL 4.14 L HEMOGLOBIN 12.2 HEMATOCRIT 38.4 MEAN CELL VOLUME 92.8 MEAN CELL HGB 29.5 MEAN CELL HGB CONCENTRATION 31.8 L RED CELL DISTRIBUTION WIDTH 14.7 PLATELET COUNT 293 MEAN PLATELET VOLUME 8.9 NEUTROPHIL % 61.1 LYMPHOCYTE % 28.0 MONOCYTE % 8.9 EOSINOPHIL % 1.0 BASOPHIL % 0.8 NEUTROPHIL # 5.24 LYMPHOCYTE # 2.40 MONOCYTE # 0.76 EOSINOPHIL # 0.09 BASOPHIL # 0.07 -- QUALITY -- -MEDICATIONS- - I attest that the foregoing medication list in the medical record is true, accurate, and complete to the best of my knowledge. -- ATTESTATION -- TIME SPENT ON PATIENT CARE: - Critical Care: time spent apart from any procedure 33 minutes Patient was critically ill due to: Acute coronary syndrome My treatment and management were: discussed on ICU multi-disciplinary rounds with nursing, pharmacy, respiratory therapy, case management and consultants including cardiology and cardiothoracic surgery regarding plans for revascularization for multi-vessel CAD/NSTEMI. CARE ACTIVITIES / CARE COORDINATION: - I have reviewed the history and repeated the snyder elements - I have seen and examined this patient - I have reviewed the progress in the clinical course since the last examination - I have discussed the patient's condition with other members of the care team Signed in PatientKeeper by ORLY LOPEZ MD on 08/10/23 at 13:30 at 1330 ATTENTION *EDITS and/or ADDENDA must be made in Patient Keeper for this note. * * Edits and ammendments created in [employer] are not visible * * in Patient Keeper or the legal medical record (HPF). * [facility] #: [id number] END OF REPORT [facility] 2023-08-09 17:02:00 [id number] [facility] [address] [place] [address] PATIENT NAME: ROCK GOMEZ ADMIT DATE: 08/09/23 ACCOUNT NO: [id number] ROOM NO: [id number] AGE: 88 REPORT TYPE: HISTORY AND PHYSICAL SEX: F ADMITTING PHYSICIAN:Marianne Mckay MD ATTENDING PHYSICIAN:Marianne Mckay MD ADMISSION DATE: 08/09/2023 08:12:00 AGE AND SEX: 88, female. REASON FOR ADMISSION: Non-ST segment elevation myocardial infarction, acute and chronic systolic congestive cardiac failure, severe multivessel coronary artery disease. HISTORY OF PRESENT ILLNESS: This 88-year-old female, a patient of Dr. Gianna Ambrose, has a past medical history significant for hypertension, hyperlipidemia, asthma, anxiety, chronic bronchitis, and coronary artery disease, status post angioplasty in 2011. A few weeks ago, the patient developed new onset of jaw pain and dyspnea, and noninvasive cardiac workup by Dr. Ambrose including a nuclear stress test showed an ejection fraction of 34% with severe inferolateral and posterolateral ischemia, a change from a previously normal ejection fraction of 55% to 60% in 06/2023. Subsequent coronary angiogram on 07/31/2023 showed severe multivessel coronary artery disease including 80% proximal LAD, 90% ostial and proximal circumflex, heavily calcified RCA with a distal occluded stent, and an ejection fraction during the heart catheterization to be 55%, elevated left ventricular end diastolic pressure at 33. The patient was evaluated by Dr. King Montiel of Cardiothoracic Surgery services on 08/06 and discussions were underway as regards to possible bypass surgery. Since that time, the patient has had increased anxiety about the possibility of undergoing bypass surgery and has not been able to sleep or rest well. On the morning of admission, she developed central chest pressure with radiation to the jaw and worsening shortness of breath. She presented to the [facility] in [place], [place], where troponin was elevated to 300 range and EKG was negative for ST elevation. She was also found to be in fluid overload, started on ACS protocol, heparin, Lasix and transferred to the [facility] for higher level of care. Troponin has trended up 530 and BNP 539, and chest x-ray shows interstitial pulmonary edema/infiltrates. She is being admitted to the intensive care unit for further evaluation and management. PAST MEDICAL HISTORY: 1. Hypertension. 2. Hyperlipidemia. 3. Coronary artery disease with history of stent placement to the RCA in 2011. 4. Severe multivessel coronary artery disease, diagnosed as above. 5. Anxiety. 6. Asthma/chronic bronchitis. 7. Colostomy with reversal in 2007. 8. Hernia repair. 9. Appendectomy. PATIENT NAME: ROCK GOMEZ PAST SURGICAL HISTORY: As above. FAMILY HISTORY: Positive for heart problems and cancer. SOCIAL HISTORY: Quit smoking in the 70s. Lives alone at home. MEDICATIONS: Home medications include metoprolol succinate 25 mg, hyoscyamine, lorazepam, montelukast, losartan 100 mg, famotidine 20 mg twice daily, naproxen 500 mg, Plavix 75 mg, atorvastatin 80 mg, aspirin 81 mg. ALLERGIES: CODEINE, PENICILLINS, BENADRYL, TETANUS VACCINE AND TOXOID. REVIEW OF SYSTEMS: Detailed review of systems was performed. CONSTITUTIONAL: Fatigue and tiredness. No fever or chills. HEENT: Denies any cough, congestion, or runny nose. CARDIOPULMONARY: Reports chest pain and shortness of breath. GASTROINTESTINAL: Reflux. GENITOURINARY: Denies any dysuria or discharge. MUSCULOSKELETAL: Reports joint pains. PHYSICAL EXAMINATION: GENERAL: Elderly female, anxious, not in any acute distress. VITAL SIGNS: Temperature 36.4, heart rate 90, respiratory rate 19, blood pressure 149/83, oxygen saturation 99% on room air. Weight is 61.3 kilograms. Body mass index 27.3. HEENT: Head is atraumatic. Pupils are reactive to light and accommodation. Extraocular muscles intact. NECK: Supple. No thyromegaly. No JVD. CARDIOVASCULAR: Regular rate and rhythm. LUNGS: Clear to auscultation. ABDOMEN: Soft, nondistended, nontender. No organomegaly. EXTREMITIES: No edema, cyanosis, or clubbing. Pedal pulses palpable. NEUROLOGIC: No focal deficit. LABORATORY DATA: Troponin 530. BNP 539. PTT 77. Hemoglobin A1c 5. Sodium 143, potassium 3.8, chloride 109, CO2 of 26, BUN 15, creatinine 0.8, blood sugar 92, calcium 8.4. Triglycerides 121, total cholesterol 226, HDL 90, LDL 139, magnesium 1.3. WBC 8.6, hemoglobin 12.2, hematocrit 38.4, platelets 293. ASSESSMENT AND PLAN: 1. Non-ST segment elevation myocardial infarction in a patient with a known history of severe multivessel coronary artery disease including proximal 80% LAD, 90% ostial and proximal circumflex and distal RCA with stent occlusion, preserved left ventricular ejection fraction on angiogram. The patient has recently been evaluated by Dr. King Montiel of Cardiothoracic Surgery services for consideration of coronary artery bypass and grafting. We will continue aspirin, heparin, beta blockers, statins and nitroglycerin. Her last dose of Plavix was on 08/08/2023 and will need a washout prior to surgical intervention. Repeat 2D echocardiogram. Observe in the ICU. PATIENT NAME: ROCK GOMEZ 2. Pulmonary edema, related to decompensated diastolic congestive cardiac failure. Cautious use of diuretics. 3. Hypertension. Continue metoprolol and losartan. 4. Hyperlipidemia. Total cholesterol 226, HDL 90, LDL 139, triglycerides 121. Continue atorvastatin 80 mg daily. 5. Hypomagnesemia, replete. 6. Asthma. Continue montelukast. 7. Anxiety, not otherwise specified. Continue lorazepam. 8. Acute exacerbation of likely diastolic congestive heart failure. Diurese as above. 9. Osteoarthritis, continue APAP. 10. Chronic kidney disease, stage II. Plan of care discussed with the emergency room services and with the consultants. Dictated By: Marianne Mckay MD Date Dictated: 08/09/2023 17:02:33 Date Transcribed: 08/09/2023 19:33:47 JAYSON/BREN/MIGUELINA Receipt ID: [id number] Authenticated and Edited by Marianne Mckay MD On 08/21/23 4:45:44 PM at 0446 PATIENT NAME: ROCK GOMEZ [facility] 2023-08-09 13:19:00 THIS REPORT HAS BEEN APPENDED [facility] ([facility]) Intensive Care Consultation REPORT #: [id number] REPORT STATUS: Signed DATE: 08/09/23 TIME: 1319 PATIENT: ROCK GOMEZ UNIT #: [id number] ROOM #: [facility] BED: 10 : 36 AGE: 88 SEX: F ATTEND: Marianne Mckay MD ADM AUTHOR: Orly Lopez MD ATTENTION *EDITS and/or ADDENDA must be made in Patient Keeper for this note. * * Edits and ammendments created in [employer] are not visible * * in Patient Keeper or the legal medical record (HPF). * -- ASSESSMENT AND PLAN -- RESUSCITATION DISCUSSION: FULL per patient HOSPITAL COURSE TO DATE: Patient is an 88-year-old female with PMH notable for CAD s/p PCI ('12), HTN, anxiety, asthma, HLD, and osteoarthritis presenting as a transfer from [facility] for management of NSTEMI. GENERAL ASSESSMENT: Plan: Pain/Sedation -Pain currently well controlled -Continue APAP/[place] PRN mild/severe pain, with morphine IV PRN breakthrough pain -Currently not requiring sedation, at goal RASS of 0 Neuro/Psych #Anxiety -H/o significant anxiety -Start Klonopin 0.5mg BID, with home Ativan 0.5mg BID PRN -Delirium precautions Respiratory #Pulmonary Edema #Asthma (not in exacerbation) -2/2 decompensated heart failure -Currently saturating well on RA -Continue diuresis -Nebs PRN and Singulair -Encourage IS Cardiovascular #NSTEMI/ACS #Decompensated Heart Failure -Known h/o CAD s/p PCI, with newly diagnosed multi-vessel disease (80% proximal LAD lesion, 90% disease involving ostial/ proximal circ, distal RCA stent occlusion) -Most recent EF on [facility] 55%, f/u repeat TTE -Continue ACS protocol with aspirin, high-dose statin, and heparin gtt -Hold Plavix in anticipation for possible surgical revascularization (last taken on 08/08) -Continue home antihypertensives (Toprol XL 25mg Q12H, losartan 50mg Q12H) -Will admit to ICU for preop optimization, including CT chest, carotid ultrasound, and vein mapping -Cardiology and cardiothoracic surgery consulted, recommendations appreciated Gastrointestinal -Cardiac diet -SUP, bowel regimen Renal -Renal function WNL -Strict I/O, monitor UOP -Lasix 40mg IV QD -ICU electrolyte protocol ordered, maintain K >4.0, Phos >3.0, Mg >2.0 Infectious Disease -SALENA, monitor fever curve Endocrine -Maintain goal BS 140-180 -Hypoglycemia protocol HEME -H/H adequate, monitor while on heparin gtt -Transfuse for goal Hgb >8.0, platelets >10k or 20k with bleeding, and fibrinogen >150 MSK -PT/OT consulted PPX -DVT: Heparin gtt -GI: Pepcid BID GOC -Code: Full per patient -Advance Care Planning: None Dispo: Admit to ICU Medications reviewed with ICU pharmacist Patient is critically ill and at risk of imminent life threatening injury or Orly Lopez MD Critical Care Medicine -- HISTORY -- REASON FOR CONSULT: Jaw pain, chest pressure CHIEF COMPLAINT: NSTEMI HPI: Patient is an 88-year-old female with PMH notable for CAD s/p PCI ('12), HTN, anxiety, asthma, HLD, and osteoarthritis presenting as a transfer from [facility] for management of NSTEMI. Patient has a known history of CAD for which she has been following as an outpatient with Dr Ambrose. Roughly six weeks ago she experienced new onset jaw pain and dyspnea, and at that time was recommended non-invasive cardiac testing with an echocardiogram and stress test. An ECHO performed in June revealed in EF of 55-60%, however a follow up nuclear stress test noted an EF of 34% with evidence of severe inferolateral and posterolateral ischemia. She was subsequently referred for a LHC, which she underwent on 07/31, which showed severe multi-vessel disease (including an 80% proximal LAD lesion, 90% disease involving the ostial and proximal circumflex, a heavily calcified RCA with patental proximal and mid stents, with the distal stent occluded. EF during the LHC was found to be 55%, LVEDP elevated to 33. Patient was subsequently referred to Dr King Montiel with CT surgery to be evaluated for surgical revascularization, and was seen by him on 08/06. Since that visit, patient has stated that she has felt anxious about the possibility of undergoing a bypass. She states she has not been able to sleep, and that early this AM shortly after midnight she began having central chest pressure with radiation to her jaw. She denies any exertional worsening, lower extremity edema, orthopnea, palpitations, fevers, chills, nausea, vomiting, abdominal pain. Patient presented to [facility] where EKG at that reportedly did not show ST elevation. Serum troponin was elevated to 300s, and after being initiated on ACS protocol and diuresed with Lasix she was transferred here to [facility]. VS on presentation were largely unremarkable. EKG showed NSR without ST changes. CXR with evidence of mild pulmonary edema. Labs notable for BNP >500 and troponin0 >500. In addition to continuing ACS protocol, patient was also diuresed with Lasix. CT surgery and cardiology consulted in ED. PAST MEDICAL HISTORY: CAD s/p PCI (), HTN, anxiety, asthma, HLD, and osteoarthritis PAST SURGICAL HISTORY: H/o bowel resection/colostomy, with reversal FAMILY HISTORY: CAD on maternal side -SOCIAL HISTORY- -TOBACCO USE- DETAILS/COMMENTS: Former smoker, quit in 1970s -VAPING/INHALED SOLVENTS- DETAILS/COMMENTS: Denies -ALCOHOL USE- DETAILS/COMMENTS: Denies -DRUG USE- DETAILS/COMMENTS: Denies LIVING SITUATION: Lives alone -- SUBJECTIVE -- PATIENT NARRATIVE: On my exam, patient is calm but appears slightly anxious but denies any current symptoms. Daughter at bedside. -REVIEW OF SYSTEMS- GENERAL: Negative for fever, malaise, fatigue. EYES: Negative for blurry vision. No diplopia. EARS/NOSE/THROAT: Negative for sore throat. No otalgia. No rhinorrhea. BREAST: Negative for change in shape, swelling, masses, nipple discharge, pain, skin changes. RESPIRATORY: Negative for dyspnea or wheeze. No cough. CARDIOVASCULAR: Chest pressure. Negative palpitations. No extremity swelling. GASTROINTESTINAL: Negative for abdominal pain or nausea. No emesis. No diarrhea. GENITOURINARY: Negative for dysuria, frequency, or urgency. No gross hematuria. MUSCULOSKELETAL: Jaw pain. Negative for joint stiffness, pain, or arthralgias. SKIN: Negative for rashes. No pruritus. NEUROLOGICAL: Negative for headache. No vertigo. Denies paresthesias. PSYCHIATRIC: Negative for specific complaints. ENDOCRINE: Negative for cold intolerance, heat intolerance, polyphagia, polydipsia, polyuria, weight change, fatigue. HEMATALOGIC / LYMPHORETICULAR: Negative for excessive bleeding, unusual masses. ALLERGIC / IMMUNOLOGIC: Negative for heat/cold intolerance, polydipsia, or polyuria. -- OBJECTIVE -- VITALS (08/08 13:19 - 08/09 13:19): Temperature C: 36.4 Temperature source: Oral Pulse Rate 105 (105 - 108) Respiratory rate: 19 Blood pressure: 157/80 (157/80 - 159/91) Blood pressure source: Monitor -EXAM- OTHER: General: AAOx4, responds appropriately, follows commands, in NAD HEENT: NCAT, EOMI, clear conjunctiva, PERRLA, moist oral mucosa Neck: No JVD CV: RRR, no murmurs Lung: CTAB, unlabored breathing, trace rales, no wheezes, rhonchi GI: Soft, NT/ND, no rebound Neuro: No focal deficits appreciated MSK: 5/5 in all extremities Extremities: No edema and warm bilaterally Skin: No rashes or lesions Psych: Anxious, but otherwise appropriate mood and affect -- DATA -- MEDICATIONS DEXTROSE 50%-WATER 25 ML IV ASDIR PRN LACTULOSE 30 ML PO BID PRN polyethylene glycoL 3350 1 PKT PO DAILY POTASSIUM CHLORIDE 20 MEQ PO ASDIR PRN DOCUSATE SODIUM 100 MG PO BID [place] POTASSIUM 50 MG PO Q12HR NITROGLYCERIN 0.4 MG SL Q5M PRN ONDANSETRON HCL/PF 4 MG IV Q6H PRN ASPIRIN 81 MG PO DAILY METOPROLOL TARTRATE 5 MG IV Q6H PRN DOCUSATE SODIUM 200 MG PO DAILY cloNIDine HCL 0.1 MG PO Q8H PRN NITROGLYCERIN 0.4 MG SL Q5M PRN SODIUM CHLORIDE 0.9% 1000 ML IV .Q24H HEPARIN/SOD CHLOR 0.45% 74604 UNITS IV TITRATE ACETAMINOPHEN 650 MG PO Q6H PRN GLUCAGON 1 MG IM ASDIR PRN FAMOTIDINE 20 MG PO BID ONDANSETRON 4 MG PO Q6H PRN MUPIROCIN 1 APPLIC NASAL BID SODIUM PHOSPHATE 1 EACH IV ASDIR PRN HYOSCYAMINE SULFATE 0.125 MG PO BID MONTELUKAST SODIUM 10 MG PO DAILY@1800 HEPARIN SODIUM,PORCINE 5000 UNIT IV ASDIR (PRN) LORazepam 0.5 MG PO Q8H PRN HEPARIN SODIUM,PORCINE 2500 UNIT IV ASDIR (PRN) bisacodyL 10 MG RECTAL DAILY PRN HEPARIN PHARMACY TO MONITOR 1 EACH IV ASDIR CALCIUM GLUC IN NACL, ISO-OSM 2 GM IV ASDIR PRN ATORVASTATIN CALCIUM 80 MG PO DAILY INSULIN LISPRO 0 UNITS SUBQ C MEALS HS MAGNESIUM SULFATE 1 EACH IV ASDIR PRN ACETAMINOPHEN 650 MG PO Q4H PRN METOPROLOL SUCCINATE 25 MG PO Q12HR LABS PROTHROMBIN TIME (08/09/23 07:59) PROTHROMBIN TIME PATIENT 11.9 INTERNATIONAL NORMAL RATIO 1.06 MAG (08/09/23 07:59) MAGNESIUM 1.3 L LIPID PROFILE (CORONARY RISK) (08/09/23 07:59) TRIGLYCERIDES 121 CHOLESTEROL 226 H HDL CHOLESTEROL 90 LIPOPROTEIN LDL 139 H CORONARY RISK FACTOR 2.51 BNP (08/09/23 07:59) B-TYPE NATRIURETIC PEPTIDE 539 H BASIC METABOLIC PANEL (08/09/23 07:59) SODIUM 143 POTASSIUM 3.8 CHLORIDE 109H H CARBON DIOXIDE 26 GLUCOSE 92 BLOOD UREA NITROGEN 15 GLOMERULAR FILTRATION RATE >=60 max estimate CREATININE 0.80 CALCIUM 8.4 L PTT (08/09/23 07:59) THROMBOPLASTIN TIME PARTIAL 77.7 H TROPI (08/09/23 07:59) TROPONIN-I 534.3 *H CBC W/AUTO DIFF (08/09/23 07:54) WHITE BLOOD CELL 8.6 RED BLOOD CELL 4.14 L HEMOGLOBIN 12.2 HEMATOCRIT 38.4 MEAN CELL VOLUME 92.8 MEAN CELL HGB 29.5 MEAN CELL HGB CONCENTRATION 31.8 L RED CELL DISTRIBUTION WIDTH 14.7 PLATELET COUNT 293 MEAN PLATELET VOLUME 8.9 NEUTROPHIL % 61.1 LYMPHOCYTE % 28.0 MONOCYTE % 8.9 EOSINOPHIL % 1.0 BASOPHIL % 0.8 NEUTROPHIL # 5.24 LYMPHOCYTE # 2.40 MONOCYTE # 0.76 EOSINOPHIL # 0.09 BASOPHIL # 0.07 -- QUALITY -- -MEDICATIONS- - I attest that the foregoing medication list in the medical record is true, accurate, and complete to the best of my knowledge. -- ATTESTATION -- TIME SPENT ON PATIENT CARE: - Critical care: time spent apart from any procedure 45 minutes Patient was critically ill due to: Acute coronary syndrome My treatment and management were: discussed on ICU multi-disciplinary rounds with nursing, pharmacy, respiratory therapy, case management and consultants including cardiology and cardiothoracic surgery regarding plans for revascularization for multi-vessel CAD/NSTEMI. CARE ACTIVITIES / CARE COORDINATION: - I have reviewed the history and repeated the snyder elements - I have seen and examined this patient - I have reviewed the progress in the clinical course since the last examination - I have discussed the patient's condition with other members of the care team Signed in PatientKeeper by ORLY LOPEZ MD on 08/09/23 at 14:37 at 1437 SECTION 2 ADDENDUM 1: 08/09/23 1501 PTKEEPER Trend troponin until peaked at 1501 ATTENTION *EDITS and/or ADDENDA must be made in Patient Keeper for this note. * * Edits and ammendments created in [employer] are not visible * * in Patient Keeper or the legal medical record (HPF). * RPT #: [id number] END OF REPORT [facility] 2023-08-09 11:36:00 THIS REPORT HAS BEEN APPENDED [facility] ([facility]) Hospitalist Clinical Note REPORT #: [id number] REPORT STATUS: Signed DATE: 08/09/23 TIME: 1136 PATIENT: ROCK GOMEZ UNIT #: [id number] ROOM #: [id number] BED: 1 : 36 AGE: 88 SEX: F ATTEND: Marianne Mckay MD ADM AUTHOR: Marianne Mckay MD ATTENTION *EDITS and/or ADDENDA must be made in Patient Keeper for this note. * * Edits and ammendments created in [employer] are not visible * * in Patient Keeper or the legal medical record (HPF). * -- NOTATION -- NOTATION: pt seen. A/P: NSTEMI. Severe multivessel coronary artery disease, not amenable to percutaneous coronary intervention. Acute/chronic systolic CHF Admit. Heparin infusion. Cardiology and cardiothoracic surgery services are following. -- DATA -- LABS PROTHROMBIN TIME (08/09/23 07:59) PROTHROMBIN TIME PATIENT 11.9 INTERNATIONAL NORMAL RATIO 1.06 MAG (08/09/23 07:59) MAGNESIUM 1.3 L LIPID PROFILE (CORONARY RISK) (08/09/23 07:59) TRIGLYCERIDES 121 CHOLESTEROL 226 H HDL CHOLESTEROL 90 LIPOPROTEIN LDL 139 H CORONARY RISK FACTOR 2.51 BASIC METABOLIC PANEL (08/09/23 07:59) SODIUM 143 POTASSIUM 3.8 CHLORIDE 109H H CARBON DIOXIDE 26 GLUCOSE 92 BLOOD UREA NITROGEN 15 GLOMERULAR FILTRATION RATE >=60 max estimate CREATININE 0.80 CALCIUM 8.4 L BNP (08/09/23 07:59) B-TYPE NATRIURETIC PEPTIDE 539 H PTT (08/09/23 07:59) THROMBOPLASTIN TIME PARTIAL 77.7 H CBC W/AUTO DIFF (08/09/23 07:54) WHITE BLOOD CELL 8.6 RED BLOOD CELL 4.14 L HEMOGLOBIN 12.2 HEMATOCRIT 38.4 MEAN CELL VOLUME 92.8 MEAN CELL HGB 29.5 MEAN CELL HGB CONCENTRATION 31.8 L RED CELL DISTRIBUTION WIDTH 14.7 PLATELET COUNT 293 MEAN PLATELET VOLUME 8.9 NEUTROPHIL % 61.1 LYMPHOCYTE % 28.0 MONOCYTE % 8.9 EOSINOPHIL % 1.0 BASOPHIL % 0.8 NEUTROPHIL # 5.24 LYMPHOCYTE # 2.40 MONOCYTE # 0.76 EOSINOPHIL # 0.09 BASOPHIL # 0.07 TROPI (08/09/23 07:59) TROPONIN-I 534.3 *H Signed in PatientKeeper by Marianne Mckay MD on 08/09/23 at 11:37 at 1137 SECTION 2 ADDENDUM 1: 08/09/23 170 PTKEEPER HP [id number] at 1703 ATTENTION *EDITS and/or ADDENDA must be made in Patient Keeper for this note. * * Edits and ammendments created in [employer] are not visible * * in Patient Keeper or the legal medical record (HPF). * RPT #: [id number] END OF REPORT [facility] 2023-08-09 10:08:00 [facility] ([facility]) Med Order Sheet REPORT #: [id number] REPORT STATUS: Signed DATE: 08/09/23 TIME: 1008 PATIENT: ROCK GOMEZ UNIT #: [id number] ROOM #: P.ERIM BED: 10 : 36 AGE: 88 SEX: F ATTEND: Marianne Mckay MD ADM AUTHOR: Marianne Mckay MD ATTENTION *EDITS and/or ADDENDA must be made in Patient Keeper for this note. * * Edits and ammendments created in [employer] are not visible * * in Patient Keeper or the legal medical record ([facility]). * Admission Medication Reconciliation -- CONTINUED / CHANGED HOME MEDICATIONS -- Home: Aspirin EC Tab (Ecotrin Tab) 81 MG PO DAILY Hosp: Aspirin EC Tab (Ecotrin Tab) 81 MG PO DAILY Home: Atorvastatin Tab (Lipitor Tab) 80 MG PO DAILY Hosp: Atorvastatin Tab (Lipitor Tab) 80 MG PO DAILY Home: Clopidogrel Tab (Plavix Tab) 75 MG PO DAILY Hosp: Clopidogrel Tab (Plavix Tab) 75 MG PO DAILY Home: Famotidine Tab (Pepcid Tab) 20 MG PO BID Hosp: Famotidine Tab (Pepcid Tab) 20 MG PO BID Home: Hyoscyamine Tab (Levsin Tab) 0.125 MG PO BID Hosp: Hyoscyamine Tab (Levsin Tab) 0.125 MG PO BID Home: LORazepam Tab (Ativan Tab) 0.5 MG PO Q8H PRN anxiety Hosp: LORazepam Tab (Ativan Tab) 0.5 MG PO Q8H PRN anxiety Home: Losartan Tab (Cozaar Tab) 100 MG PO DAILY Hosp: Losartan Tab (Cozaar Tab) 50 MG PO Q12HR Home: Metoprolol Succinate XL Tab (Toprol XL Tab) Oral Hosp: Metoprolol Succinate XL Tab (Toprol XL Tab) 25 MG PO Now and then Q12HR Home: Montelukast Tab (Singulair Tab) 10 MG PO DAILY Hosp: Montelukast Tab (Singulair Tab) 10 MG PO DAILY@1800 -- STOPPED HOME MEDICATIONS -- Home: Naproxen Tab (Naprosyn Tab) 500 MG PO DAILY at 1008 ATTENTION *EDITS and/or ADDENDA must be made in Patient Keeper for this note. * * Edits and ammendments created in [employer] are not visible * * in Patient Keeper or the legal medical record ([facility]). * RPT #: [id number] END OF REPORT [facility] 2023-08-09 09:52:00 [facility] ([facility]) Cardiothoracic Surg Brief Con. REPORT #: [id number] REPORT STATUS: Signed DATE: 08/09/23 TIME: 951 PATIENT: ROCK GOMEZ UNIT #: [id number] ROOM #: [facility] BED: 10 : 36 AGE: 88 SEX: F ATTEND: Marianne Mckay MD [facility] AUTHOR: Estrada Hagan PA ATTENTION *EDITS and/or ADDENDA must be made in Patient Keeper for this note. * * Edits and ammendments created in [employer] are not visible * * in Patient Keeper or the legal medical record ([facility]). * -- ASSESSMENT AND PLAN -- RESUSCITATION DISCUSSION: 88-year-old female being considered for coronary artery Revascularization who is since developed severe chest pain and has returned to the hospital. -Etiology of pain is still unclear we will continue workup with cardiac enzymes, repeat echocardiogram, and completion of surgical workup to include CT of the chest, carotid ultrasound lower extremity venous mapping. -Considerations patient is elderly, With decreased left ventricular function and has last taken Plavix on 08/08/2023. Patient initially describes what sounds like is more of an anxiety event however she does have some elevation of her cardiac enzymes. Plan Will transition her to heparin and monitor closely in the ICU, If she has suffered an acute event and is now chest pain-free she may benefit from myocardial recovery prior to considering surgery. If pain is anginal related only and persists we will consider moving surgery forward and or disgusting percutaneous options with cardiology. GENERAL ASSESSMENT: PMH Coronary artery disease. Hypertension. Hyperlipidemia. Osteoarthritis. Bronchial asthma. Surgical History Several left heart catheterizations PCI 1999 Repair of bowel perforation 2007 Family History Mother: Father: Social History Alcohol Use Patient uses alcohol Daily Tobacco Status Patient is a non tobacco user Marital Status: . Allergies Penicillin Tetanus Immune Globulin Benadryl Codeine Sulfate Aspirin Adult Low Dose 81 MG Tablet Delayed Release 1 tablet Orally Once a day Losartan Potassium 100 MG Tablet 1 tablet Orally Once a day Doxepin HCl 25 MG Capsule 1 capsule at bedtime Orally Once a day Naproxen 500 MG Tablet 1 tablet with food or milk as needed Orally every 12 hrs Hyoscyamine Sulfate 0.125 MG Tablet Sublingual DISSOLVE 1 TABLET UNDER THE TONGUE EVERY 6 HOURS NEEDED Sublingual Montelukast Sodium 10 MG Tablet TAKE 1 TABLET BY MOUTH ONCE DAILY AT NIGHT Oral Famotidine 20 MG Tablet TAKE 1 TABLET BY MOUTH TWICE DAILY IN THE MORNING AND IN THE EVENING Oral Metoprolol Succinate ER 25 MG Tablet Extended Release 24 Hour TAKE 1 TABLET BY MOUTH ONCE DAILY Oral Lorazepam 0.5 MG Tablet TAKE 1 TABLET BY MOUTH TWICE DAILY NEEDED FOR ANXIETY Oral Clopidogrel Bisulfate 75 MG Tablet TAKE 1 TABLET BY MOUTH ONCE DAILY Oral Atorvastatin Calcium 80 MG Tablet TAKE 1 TABLET BY MOUTH ONCE DAILY Oral -- HPI -- CONSULT REQUESTED BY: ORLY LOPEZ MD DATE/TIME AT BEDSIDE: 2023-08-09 08:00 REASON FOR CONSULT: Ms. Gomez is a 88-year-old female who was recently referred to Dr. Montiel for coronary artery bypass revascularization consideration seen last on 08/06/2023. Findings were revealed with her complaints of recent increasing exertional chest pain confirmed with left heart catheterization revealing multivessel disease. Left ventricular ejection fraction at the time was noted to be around 35%. Additionally she has had PCI's performed in 2012 x 3 And has been managed with dual antiplatelet therapy since. On evaluation by Dr. Montiel on 08 06 she was felt to be a reasonable candidate for revascularization in the interim however she has experienced some insomnia last night followed by an event of chest pain with radiation to the jaw. She presented to outside hospital as we requested and has since been transferred here for higher level care. CHIEF COMPLAINT: Known coronary artery disease with accelerating chest pain Signed in PatientKeeper by Estrada Hagan on 08/09/23 at 10:05 at 1005 ATTENTION *EDITS and/or ADDENDA must be made in Patient Keeper for this note. * * Edits and ammendments created in [employer] are not visible * * in Patient Keeper or the legal medical record (HPF). * RPT #: [id number] END OF REPORT [facility] 2023-08-09 09:20:00 [facility] ([facility]) Cardiology Consultation REPORT #: [id number] REPORT STATUS: Signed DATE: 08/09/23 TIME: 919 PATIENT: ROCK GOMEZ UNIT #: [id number] ROOM #: P.0318 BED: 1 : 36 AGE: 88 SEX: F ATTEND: Woody,Adnan X MD ADM AUTHOR: Funmilayo Ibarra ATTENTION *EDITS and/or ADDENDA must be made in Patient Keeper for this note. * * Edits and ammendments created in [employer] are not visible * * in Patient Keeper or the legal medical record (HPF). * -- CO-SIGNATURE -- COMMENTS: The patient was seen on rounds with JOSE Youssef. The patient has no complaints Examination demonstrates normal heart sounds and clear lung hwang. Impression and plan The patient is an 88-year-old female with multivessel coronary artery disease with good targets and an EF of 34%. The patient is being worked up for high risk bypass surgery. We will look at the films with cardiac surgery tomorrow but we will continue her aspirin, atorvastatin and metoprolol for now. The patient is also getting IV Lasix for mild volume overload. Signed in PatientKeeper by YUE GARZA MD on 08/09/23 at 23:28 -- ASSESSMENT AND PLAN -- PROBLEMS: 1: NSTEMI (non-ST elevated myocardial infarction) A/P: The patient is an 88-year-old female (patient of Dr. Gianna Ambrose) has a PMHx of coronary artery disease (s/p PCI with 3 ALEC), family history of coronary artery disease, carotid artery disease, hypertension, hyperlipidemia, h/o nicotine use, asthma, chronic bronchitis, anxiety. She has been having chest pressure radiating to her jaw and shortness of breath for the past 3 weeks. She was evaluated by her medical clinic manager, had stress test on 07/28/2023 what was abnormal, showed cardiomyopathy, an EF of 34%, severe inferolateral, posterolateral ischemia. Echocardiogram (06/2023) showed an EF 55-60%, moderate MR. She had coronary angiogram on 07/31/23 and showed three vessel coronary artery disease, torturous aorta with small abdominal aortic aneurysm. elevated LVEDP that is not amenable for PCI. She was evaluated by CV surgery, Dr. Montiel, for CABG. She presented at an outside hospital with complaint of chest pain radiating to her left jaw, diaphoresis and she was ruled in NSTEMI. She was transferred here to [facility] for higher level of care. Chest x-ray showed interstitial and basilar airspace edema/infiltrates, cardiomegaly. Blood work showed troponin of 534.3, BNP 539, Mg 1.3. She denies chest pain, shortness of breath, palpitations now. - Started on IV heparin - Echo and CT chest w/o contrast today - Pre-op work-up for CABG per CV surgery - On aspirin, atorvastatin 80mg daily, metoprolol XL 25mg BID - Started on IV furosemide 40mg daily - Mg 1.3, replace electrolyte - Clopidogrel discontinued, last dose taken on 08/08/23 per the patient - On PT/OT/IS - Spoke with Dr. Montiel and the patient will be admitted to CVICU for closer observation -- HISTORY -- CONSULT REQUESTED BY: Herve Hernandes MD REASON FOR CONSULT: NSTEMI CHIEF COMPLAINT: NSTEMI HPI: The patient is an 88-year-old female (patient of Dr. Gianna Ambrose) has a PMHx of coronary artery disease (s/p PCI with 3 ALEC), family history of coronary artery disease, carotid artery disease, hypertension, hyperlipidemia, h/o nicotine use, asthma, chronic bronchitis, anxiety. She has been having chest pressure radiating to her jaw and shortness of breath for the past 3 weeks. She was evaluated by her medical clinic manager, had stress test on 07/28/2023 what was abnormal, showed cardiomyopathy, an EF of 34%, severe inferolateral, posterolateral ischemia. Echocardiogram (06/2023) showed an EF 55-60%, moderate MR. She had coronary angiogram on 07/31/23 and showed three vessel coronary artery disease, tortorous aorta with small abdominal aortic aneurysm. elevated LVEDP that is not amenable for PCI. She was evaluated by CV surgery, Dr. Montiel, for CABG. She presented at an outside hospital with complaint of chest pain radiating to her left jaw, diaphoresis and she was ruled in NSTEMI. She was transferred here to [facility] for higher level of care. Chest x-ray showed interstitial and basilar airspace edema/infiltrates, cardiomegaly. Blood work showed troponin of 534.3, BNP 539, Mg 1.3. She denies chest pain, shortness of breath, palpitations now. PAST MEDICAL HISTORY: Coronary artery disease. Hypertension. Hyperlipidemia. Osteoarthritis. Bronchial asthma. PAST SURGICAL HISTORY: Repair of bowel perforation 2007 FAMILY HISTORY: Family history of coronary artery disease Father - cancer -SOCIAL HISTORY- -TOBACCO USE- DETAILS/COMMENTS: H/o nicotine use -VAPING/INHALED SOLVENTS- DETAILS/COMMENTS: Denies -ALCOHOL USE- DETAILS/COMMENTS: Denies -DRUG USE- DETAILS/COMMENTS: Denies -- SUBJECTIVE -- -REVIEW OF SYSTEMS- GENERAL: Negative for fever, malaise, fatigue. EYES: Negative for blurry vision. No diplopia. EARS/NOSE/THROAT: Negative for sore throat. No otalgia. No rhinorrhea. RESPIRATORY: Negative for dyspnea or wheeze. No cough. CARDIOVASCULAR: Negative for chest pain or palpitations. No extremity swelling. GASTROINTESTINAL: Negative for abdominal pain or nausea. No emesis. No diarrhea. GENITOURINARY: Negative for dysuria, frequency, or urgency. No gross hematuria. MUSCULOSKELETAL: Negative for joint stiffness, pain, or arthralgias. SKIN: Negative for rashes. No pruritus. NEUROLOGICAL: Negative for headache. No vertigo. Denies paresthesias. PSYCHIATRIC: Negative for specific complaints. -- OBJECTIVE -- -EXAM- OTHER: Constitutional: Well developed, well nourished patient, in no acute distress. Derm/Integumentary: Warm and dry with no rashes, sores, or lesions. HEENT: Eyes-sclera clear and white, symmetrical w/ no lag. ENT - Palate and gums pink, mucosa moist, no pallor/cyanosis. Neck: supple with no masses, no thyromegaly, No JVD. Respiratory: Clear to auscultation. Heart: S1S2+, Regular Rate and Rhythm, No murmurs, rubs, or gallops. Gastrointestinal: + Bowel Sounds all quadrants. Soft, nontender with no masses or organomegaly; No HJR. Musculoskeletal: Equal strength in all extremities. No weakness. Neurology: Alert and oriented X 3. Calm, cooperative affect. No focal deficits. Extremities: + peripheral pulses. No clubbing, cyanosis. No lower extremity edema. -- DATA -- MEDICATIONS HEPARIN SODIUM,PORCINE LEAVE DOSE FIELD ZERO IV ASDIR (PRN) HEPARIN SODIUM,PORCINE LEAVE DOSE FIELD ZERO IV ASDIR (PRN) SODIUM CHLORIDE 0.9% 1000 ML IV .Q24H HEPARIN/SOD CHLOR 0.45% 30267 UNITS IV TITRATE -- ATTESTATION -- CARE ACTIVITIES / CARE COORDINATION: - I have reviewed the history and repeated the snyder elements - I have seen and examined this patient - I have reviewed the progress in the clinical course since the last examination - I have discussed the patient's condition with other members of the care team ADDITIONAL DETAIL: Plan of care discussed with Dr. Yue Garza Signed in PatientKeeper by FUNMILAYO IBARRA on 08/09/23 at 17:09 Cosigned by YUE GARZA MD on 08/09/23 at 23:28 at 2328 at 2328 ATTENTION *EDITS and/or ADDENDA must be made in Patient Keeper for this note. * * Edits and ammendments created in [facility] are not visible * * in Patient Keeper or the legal medical record (HPF). * RPT #: [id number] END OF REPORT [facility] 2023-08-09 08:23:00 [id number] [facility] [address] [place] [address] PATIENT NAME: ROCK GOMEZ ADMIT DATE: 08/09/23 ACCOUNT NO: [id number] ROOM NO: [facility] AGE: 88 REPORT TYPE: eELECTROCARDIOGRAM SEX: F ADMITTING PHYSICIAN: Marianne Mckay MD ATTENDING PHYSICIAN: Marianne Mckay MD Order: [id number] Test Reason : EVALU Test Date/Time Stamp: WedAug 09 2023 08:23:57 Blood Pressure : / mmHG Vent. Rate : 102 BPM Atrial Rate : 102 BPM P-R Int : 152 ms QRS Dur : 086 ms QT Int : 374 ms P-R-T Axes : 043 -27 073 degrees QTc Int : 487 ms Sinus tachycardia Otherwise normal ECG Confirmed by ALEJANDRA WOOD ([id number]) on 08/12/2023 7:21:26 AM Referred By: Marianne Mckay Confirmed by:ALEJANDRA WOOD at 0721 PATIENT NAME: ROCK GOMEZ [facility] 2023-08-09 07:42:00 [facility] ([facility]) EMERGENCY PROVIDER REPORT REPORT#:[id number] REPORT STATUS: Signed DATE:08/09/23 TIME: 0742 PATIENT: ROCK GOMEZ UNIT #: [id number] ROOM: [facility] BED: 10 AGE: 88 SEX: F PCP PHYS: Marianne Mckay MD SERVICE AUTHOR: Herve Hernandes MD * ALL edits or amendments must be made on the electronic/computer document * HPI-General Illness Free Text HPI Notes Free Text HPI Notes 88-year-old female past medical history including CAD with three-vessel disease, hypertension, hyperlipidemia, asthma, anxiety presents to the emergency department as a transfer some [facility] for NSTEMI. Apparently was having chest discomfort that radiated to her left neck starting 3 weeks ago. Associate with shortness of breath. Denies abdominal pain, nausea, vomiting, diarrhea, dysuria or other complaints at this time. Currently pain-free on my initial evaluation in the ER. Workup at the outlying ER apparently showed troponin of 329 (less than 58.9 is normal) and BNP of 1505. Chest x-ray with apparent concern for possible volume overload and pleural effusion. She was given 40 mg of Lasix, 324 mg of aspirin, and given heparin bolus and started on drip. General Initial Greet Date/Time 08/09/23 0738 Presentation Chief Complaint Chest pain Review of Systems Free Text ROS Notes Free Text ROS Notes Constitutional: Denies: Chills, Fatigue. Eyes: Denies: Blurry Vision, Diplopia. ENT: Denies: Sinus problem, Sore throat. Respiratory: + Shortness of breath. Cardiovascular: + Chest pain. GI: Denies: Abdominal pain, Nausea, Vomiting. : Denies: Dysuria, Flank pain. Musculoskeletal: Denies: Extremity Pain, Laceration. Hematologic Denies: Bleeding. Neurologic Denies: Change LOC, Confusion, Slurred speech. Past Medical History - Adult Stated Complaint NSTEMI, CHF Allergies Coded Allergies: Penicillins (Severe, RASH 08/09/23) Tetanus Vaccines and Toxoid (Severe, RASH 08/09/23) codeine (Severe, HIVE 08/09/23) diphenhydramine (From BENADRYL) (Severe, RASH 08/09/23) Additional Medical History CAD with three-vessel disease, hypertension, hyperlipidemia, asthma, anxiety Physical Exam Vital Signs Vital Signs First Documented: Result Date Time Pulse Ox 100 08/09 0640 B/P 159/91 08/09 0640 B/P Mean 113 08/09 0740 O2 Delivery Room air 08/09 739 Temp 36.4 08/09 739 Pulse 108 08/09 739 Resp 19 08/09 739 Last Documented: Result Date Time Pulse Ox 100 08/09 0740 B/P 159/91 08/09 0640 B/P Mean 113 08/09 0640 O2 Delivery Room air 08/09 739 Temp 36.4 08/09 739 Pulse 108 08/09 739 Resp 19 08/09 0640 Review of Vital Signs Reviewed Free Text PE Notes Free Text PE Notes General/Const: Awake, No acute distress Head: Atrauamtic, Normocephalic Eyes: EOMI. Anicteric sclerae. ENT: Airway patent. Atraumatic. Resp/Chest: Mild rales present. Good air movement bilaterally. Normal respiratory effort. No acute respiratory distress. Cardiovascular: Heart rate NL, Regular rhythm, No gallops/rubs appreciated. Abdomen/GI: Non-tender in all abdominal quadrants. No guarding, No rebound. No distention Skin: Warm, Dry Neurologic: Alert Oriented X3, Speech normal. Interpretation Diagnostics Lab Results Interpretation Results Laboratory Tests 08/09/23 0754: [Embedded Image Not Available] 08/09/23 0759: [Embedded Image Not Available] Laboratory Tests: 08/09 08/09 08/09 0754 0759 0759 Chemistry Sodium (136 - 145 mmol/L) 143 Potassium (3.5 - 5.1 mmol/L) 3.8 Chloride (98 - 107 mmol/l) 109 H Carbon Dioxide (20 - 31 mmol/L) 26 BUN (9 - 23 mg/dL) 15 Creatinine (0.55 - 1.02 mg/dL) 0.80 Glomerular Filtr Rate (>60 mL/min) >=60 max estimate Glucose (74 - 106 mg/dL) 92 Calcium (8.7 - 10.4 mg/dL) 8.4 L Magnesium (1.6 - 2.6 mg/dL) 1.3 L B-Natriuretic Peptide (<100 pg/mL) 539 H Triglycerides (<150 mg/dL) 121 Cholesterol (<200 mg/dL) 226 H LDL Cholesterol Measurd (<100 mg/dL) 139 H HDL Cholesterol (>60 mg/dL) 90 Coronary Risk Interp 2.51 Coagulation PT (10.3 - 12.9 SECONDS) 11.9 INR (0.9 - 1.11) 1.06 PTT (Wood) (23.8 - 34.8 secs) 77.7 H Hematology WBC (4.8 - 10.8 x10 3/uL) 8.6 RBC (4.20 - 5.40 x10 6/uL) 4.14 L Hgb (12.0 - 16.0 g/dL) 12.2 Hct (37.0 - 47.0 %) 38.4 MCV (81.0 - 99.0 fL) 92.8 MCH (27 - 31 pg) 29.5 MCHC (33 - 36.5 G/DL) 31.8 L RDW (12.9 - 16.9 %) 14.7 Plt Count (150 - 440 x10 3/uL) 293 MPV (8.9 - 12.4 fL) 8.9 Neut % (Auto) (42.2 - 75.2 %) 61.1 Lymph % (Auto) (20.5 - 51.1 %) 28.0 Love % (Auto) (1.7 - 9.3 %) 8.9 Eos % (Auto) (0.0 - 7.0 %) 1.0 Baso % (Auto) (0 - 2.5 %) 0.8 Neut # (Auto) (1.80 - 7.70 x10 3/uL) 5.24 Lymph # (Auto) (1.00 - 4.80 x10 3/uL) 2.40 Love # (Auto) (0.00 - 0.80 x10 3/uL) 0.76 Eos # (Auto) (0.00 - 0.45 x10 3/uL) 0.09 Baso # (Auto) (0.0 - 0.20 x10 3/uL) 0.07 08/09 0759 Chemistry Troponin I High Sens (27.36 - 66.23 pg/mL) 534.3 *H ECG #1 Interpretation Text/Dict Note Interpretation of EKG performed at 0 835: Rate 102, sinus tachycardia, left axis deviation, mildly prolonged QTc of 47. Some baseline wander present in V6. No significant ST segment or T wave abnormality definitive for acute ischemia. Re-Evaluation MDM Free Text MDM Notes Free Text MDM Notes History and physical as above. Chest pain free on my evaluation. Workup completed at outlying facility already. Consulted cardiology, Dr. Garza, team amenable to seeing patient. Dr. Montiel also made aware of patient. Repeat diagnostics ordered. Discussed patient with and admitted to the inpatient medicine service (spoke with Dr. Mckay) for further management/workup. --- Chest x-ray here verifying volume overload. BNP elevated 539. Troponin also elevated 534. CBC, chemistry otherwise fairly unremarkable. ED Course Medication(s) Ordered Medication(s) Ordered: Blood Formation,Coagulation Sig/Jonathan Start time Last Medication Dose Route Stop Time Status Admin Heparin Sodium/ 500 ML TITRATE 08/09 0900 CKD 08/09 Sodium Chloride IV 08/10 09 0923 Heparin Sodium 5,000 UNIT ASDIR PRN 08/09 08 AC (Porcine) IV 08/10 0653 Heparin Sodium 2,500 UNIT ASDIR PRN 08/09 799 AC (Porcine) IV 08/10 0653 Electrolytic, Caloric, And Jeane Sig/Jonathan Start time Last Medication Dose Route Stop Time Status Admin Sodium Chloride 1,000 ML .Q24H 08/09 08 AC 08/09 IV 08/10 0653 0818 Risk-Chest Pain 40 and Over Risk Stratification )( HEART for MACE )( HEART for MACE Response Value History Mod index of suspicion 1 ECG Interpretation Normal ECG 0 Age Age 65 or over 2 Risk Factors for CAD 3+ CAD risk factors 2 Troponin > or = to 3x NL trop 2 Total 7 Free Text Risk Notes Free Text Risk Notes Already received 324mg ASA at outlying facility. Patient Discharge Departure Vital Signs/Condition Vital Signs First Documented: Result Date Time Pulse Ox 100 / 0740 B/P 159/91 02/ 0740 B/P Mean 113 / 0740 O2 Delivery Room air 08/09 0740 Temp 36.4 02/ 0740 Pulse 108 02/ 0740 Resp 19 / 0740 Last Documented: Result Date Time Pulse Ox 100 / 0740 B/P 159/91 / 0740 B/P Mean 113 /12 0740 O2 Delivery Room air 08/09 0740 Temp 36.4 / 0740 Pulse 108 / 0740 Resp 19 / 0740 All vital signs available at the time of this entry have been reviewed. Clinical Impression Clinical Impression Primary Impression: NSTEMI (non-ST elevated myocardial infarction) Disposition Decision Hospitalize Hosp Physician Name Marianne Mckay MD Request Time 08 Request Date 08/09/23 )( Accepts Hospitalization Yes )( Accepted Time 803 )( Accepted Date 08/09/23 at 0951 RPT #:[id number] END OF REPORT [facility] 2023-07-31 08:42:00 [id number] [facility] [id number] [place] [id number] PATIENT NAME: ROCK GOMEZ ADMIT DATE: 07/31/23 ACCOUNT NO: [id number] ROOM NO: AGE: 88 REPORT TYPE: OPERATIVE REPORT SEX: F ADMITTING PHYSICIAN: ATTENDING PHYSICIAN: Gianna Ambrose MD Cardiology OPERATION DATE: 07/31/2023 CELERY CUTTER: Gianna Ambrose MD COMMERCIAL ILLUSTRATOR: INDICATION FOR THE PROCEDURE: Angina, coronary artery disease, previous stents, cardiomyopathy. Also, she had the new indication during the procedure called peripheral arterial disease and abdominal aortic aneurysm. PREOPERATIVE DIAGNOSIS: POSTOPERATIVE DIAGNOSIS: TITLE OF PROCEDURES: 1. Left heart catheterization. 2. Left subclavian/SCHWARTZ angiogram. 3. Abdominal angiogram. 4. Selective right iliac angiogram. 5. Sealing device. ESTIMATED BLOOD LOSS: Minimal. COMPLICATIONS: None. CONTRAST: 120 mL. ANESTHESIA: Conscious sedation with Versed and fentanyl. 1% lidocaine for local anesthesia. FINAL DIAGNOSES: 1. Heavily calcified arteries. 2. Three-vessel coronary artery disease. 3. Occluded distal right with collaterals from the left. 4. Mild aortic stenosis. 5. Normal ejection fraction. 6. Tortuous aorta with small abdominal aortic aneurysm. 7. Elevated left ventricular end-diastolic pressure. RECOMMENDATION: Consider bypass. PROCEDURE IN DETAIL: After informed consent, the patient was brought to the PATIENT NAME: ROCK GOMEZ cardiac catheterization lab in a stable fasting nonsedated state. She was prepped and draped in the usual sterile fashion. After conscious sedation, 1% lidocaine was administered to the right common femoral artery area for local anesthesia. A 6-Micronesian sheath was placed in the right common femoral artery using standard techniques and fluoroscopy. We were not able to pass the sheath wire to the abdominal aorta, so I had to use a STORQ wire and did an angiogram of the right iliac first that showed the right iliac to be very tortuous with no significant disease. I did an abdominal angiogram at [...] marginals, one small and one large. There are collaterals from the left to the right and the collaterals supplied the PDA and the PL and the distal right is occluded, heavily calcified, possibly also been stented before. Right coronary angiogram showed a heavily calcified artery. The proximal and mid stents are open, but the distal is occluded. The RCA gives a ____ PDA earlier, but then occludes right at the distal segment. Left ventricular angiogram showed ejection fraction of 55%, normal wall motion. Left ventricular end-diastolic pressure of 33 and there was mild wzti-im-owdi gradient with the LV pressure 144. The [...] medical therapy for the aorta. Dictated By: Gianna Ambrose MD Date Dictated: 07/31/2023 08:42:46 Date Transcribed: 07/31/2023 09:23:19 ABIGAIL/MATEUSZ/ABDELRAHMAN Receipt ID: [id number] Authenticated by Gianna Ambrose MD On 07/31/2023 09:51:38 AM at 0951 PATIENT NAME: ROCK GOMEZ [facility] 2023-07-31 06:06:00 [id number] [facility] [id number] [place] [id number] PATIENT NAME: ROCK GOMEZ ADMIT DATE: 07/31/23 ACCOUNT NO: [id number] ROOM NO: AGE: 88 REPORT TYPE: eELECTROCARDIOGRAM SEX: F ADMITTING PHYSICIAN: ATTENDING PHYSICIAN: Gianna Ambrose MD Order: [id number] Test Reason : preop Test Date/Time Stamp: Sat Jul 31 2023 06:06:57 Blood Pressure : / mmHG Vent. Rate : 089 BPM Atrial Rate : 089 BPM P-R Int : 148 ms QRS Dur : 084 ms QT Int : 400 ms P-R-T Axes : 067 -02 063 degrees QTc Int : 486 ms Normal sinus rhythm Nonspecific ST and T wave abnormality Abnormal ECG No previous ECGs available Confirmed by GIANNA AMBROSE ([id number]) on 07/31/2023 6:35:02 AM Referred By: Gianna Ambrose Confirmed by:GIANNA AMBROSE at 0635 PATIENT NAME: ROCK GOMEZ [facility] 2023-07-30 07:37:00 [id number] [place] [address] PATIENT NAME: ROCK GOMEZ ADMIT DATE: ACCOUNT NO: [id number] ROOM NO: AGE: 88 REPORT TYPE: HISTORY AND PHYSICAL SEX: F ADMITTING PHYSICIAN: ATTENDING PHYSICIAN: Gianna Ambrose MD Cardiology PATIENT NAME: ROCK GOMEZ ADMIT DATE:07/31/2023 ADMISSION DATE: 07/31/2023 08:00:00 ADMISSION HISTORY AND PHYSICAL CELERY CUTTER: Gianna Ambrose MD. REASON FOR ADMISSION: Angina, known coronary artery disease, worsening dyspnea, ischemia, for cardiac catheterization and possible revascularization. HISTORY OF PRESENT ILLNESS: Rock is an 88-year-old lady with long history of coronary artery disease. The patient has been seeing me since 10/04/2018. Recently, she has been having worsening dyspnea and worsening jaw discomfort, typical of angina. The patient underwent a noninvasive workup with a chemical nuclear stress test on 07/28/2023 that showed cardiomyopathy, which is new for the patient. Ejection fraction was 34%. She had severe inferolateral, posterolateral ischemia. Her last echocardiogram this June was showing ejection fraction of 55 to 60%. She had moderate mitral regurgitation. She had no wall motion abnormalities. So, the patient has definite significant ischemia along with her symptoms. The patient has known coronary artery disease, diagnosed back on 08/31/2011 at which time she was according to the old records, which are in complete showed triple vessel coronary artery disease and showed that she has had 3 stents at that time, but there is no details of where and how many arteries and what the size of the stents, no details on that procedure. She had a carotid Doppler in my office in 2021 that showed less than 50% disease. The patient is here today for cardiac catheterization to assess her coronaries and to assess her ischemia and the reason for the worsening ejection fraction with the nuclear stress test. PAST MEDICAL HISTORY: Remarkable for hypertension, hyperlipidemia, osteoarthritis, asthma, anxiety, sciatica, chronic sinusitis, and allergies. PAST SURGICAL HISTORY: She has had colonoscopies, gastrointestinal perforation repair in 2007, hernia surgery 2009, cataracts and the stents mentioned above in 2011. ALLERGIES: PENICILLIN, CODEINE, AND TETANUS SHOTS. MEDICATIONS: Atorvastatin 80 mg daily, aspirin 81 mg daily, montelukast 10 mg daily, lorazepam as needed, metoprolol 25 mg daily, clopidogrel 75 mg daily, and losartan 100 mg daily. PATIENT NAME: ROCK GOMEZ SOCIAL HISTORY: The patient does not smoke, drink, or use street drugs. FAMILY HISTORY: Positive for atherosclerotic cardiovascular disease. REVIEW OF SYSTEMS: Remarkable for the above, especially allergies, decreased hearing, dizziness, sciatica, arthritis, anxiety, depression, numbness. No acute GI or symptoms. No TIAs or strokes. No congestive heart failure symptoms. PHYSICAL EXAMINATION: GENERAL: Reveals a pleasant elderly lady in no acute distress. VITAL SIGNS: Blood pressure 136/88, pulse 73 and regular, respiratory rate 16 and unlabored, temperature afebrile. HEENT: Head atraumatic, normocephalic. Eyes and ENT examination within normal for age. NECK: Supple, no jugular venous distention, bruits or lymphadenopathy. Normal upstroke. LUNGS: Clear and resonant. Decreased air entry at the bases noted. HEART: Regular rate and rhythm with 2/6 systolic ejection murmur at the left lower sternal border. No gallops. ABDOMEN: Soft, no tenderness, no organomegaly, no masses or bruits. EXTREMITIES: 2+ distal pulses. No edema, cyanosis, or clubbing. NEUROLOGIC: Alert and oriented x3. Examination appears to be nonfocal. LABORATORY DATA: Pending. Noninvasive cardiovascular workup enclosed. IMPRESSION: This is an 88-year-old lady with known coronary artery disease and history of 3 stents back in 2011. She is on maximal medical therapy. She presents with worsening dyspnea and angina with jaw discomfort. She has significantly abnormal nuclear stress test with depressed ejection fraction with the nuclear and severe inferolateral and posterolateral ischemia, which is changed from previous evaluation in 2021. The patient definitely appears to have worsening coronary artery disease. She may benefit from revascularization despite the patient's advanced age. PLAN: The recommendation is to proceed with left heart catheterization and possible revascularization. The risks and benefits of the planned procedures were discussed in detail with the patient and available family members and she is willing to proceed. Rest as per orders. Dictated By: Gianna Ambrose MD Date Dictated: 07/30/2023 07:37:04 Date Transcribed: 07/30/2023 08:05:07 ABIGAIL/TULIO Receipt ID: [id number] Authenticated and Edited by Gianna Ambrose MD On 07/30/23 6:40:04 PM at 0640 PATIENT NAME: ROCK GOMEZ [facility]
[2024-05-27] MEDS ORDERED: METOCLOPRAMIDE 10 MG/2mL INJ ONE (06:22)
[2024-05-27] MEDS ORDERED: ONDANSETRON 4 MG/2 ML VIAL ONE (06:22)
[2024-05-27] MEDS ORDERED: NA CHLORIDE 0.9% 1,000 ML ONE (06:23)
[2024-05-27] MEDS ORDERED: FAMOTIDINE 20 MG/2 ML VIAL IV ONE (06:23)
[2024-05-27 06:40] LABS: Absolute Lymphocytes (CBC) 0.4 K/uL (0.7-4.9); Absolute Monocytes 0.6 K/uL (0.1-1.3); Basophils % 0.1 % (0-1.3); Hematocrit 39.8 % (36.0-45.0); Hemoglobin 13.3 g/dL (12.0-15.0); Lymphocytes % 7.3 % (15.3-44.8); MCH 30.2 pg (27.0-35.0); MCHC 33.5 g/dL (32.0-36.0); MPV 7.2 fL (7.6-11.3); Monocytes % 9.5 % (3.3-12.3); Neutrophils % 83.1 % (41.7-73.7); Nucleated Red Blood Cells % 0.1 % (0-0); Platelets 245 thou/uL (152-406); RBC Red Blood Cell Count 4.41 M/uL (3.86-4.86); Red Cell Distribution Width 13.9 % (12.1-15.2)
[2024-05-27 07:03] LABS: Albumin 3.5 g/dL (3.4-5.0); Albumin/Globulin Ratio 0.7 (1.1-1.8); Anion Gap 10.7 mEq/L (5.0-15.0); Globulin 5.1 g/dL (2.3-3.5); Potassium 2.7 mEq/L (3.5-5.1); Protein, Total 8.6 g/dL (6.4-8.2)
[2024-05-27 07:32] LABS: Troponin High Sensitivity 50.9 pg/mL (<58.9)
[2024-05-27] MEDS ORDERED: KCL 20 MEQ/100 mL IVPB 200 ML IV ONE (07:34)
[2024-05-27] MEDS ORDERED: NS KCL 20MEQ 1,000 ML IV ONE (07:34)
--- NOTE | 2024-05-27 07:45 | EDPHYS ---
Physician Documentation [facility] Name: Adrienne Phelan Age: 88 yrs Sex: Female : 1935 Arrival Date: 05/27/2024 Time: 05:58 Bed 8 Private MD: ED Physician Jameel Rocha HPI: 05/27 06:04 This 88 yrs old Female presents to ER via EMS with complaints of Nausea. sp4 07:09 88-year-old female presents with complaint of moderate to severe nausea for the past sp4 several days. Patient was administered IM Phenergan prior to arrival. . Historical: - Allergies: 06:01 Codeine; cp4 06:01 PENICILLINS; cp4 06:01 Tetanus Vaccines and Toxoid; cp4 06:01 Benadryl; cp4 - PMHx: 07:42 Congestive heart failure; Hypertensive disorder; ko1 - PSHx: 07:42 Coronary artery bypass graft; pacemaker; ko1 - Immunization history:: Adult Immunizations up to date. - Infectious Disease History:: Denies. - Social history:: Smoking status: Patient denies any tobacco usage or history of. - Family history:: not pertinent. ROS: 07:09 Constitutional: Negative for fever, chills, and weight loss, positive for nausea and sp4 abdominal pain 07:09 All other systems are negative, Exam: 07:09 Constitutional: This is a well developed, well nourished patient who is awake, alert, sp4 and in no acute distress. Head/Face: Normocephalic, atraumatic. Eyes: Pupils equal round and reactive to light, extra-ocular motions intact. Lids and lashes normal. Conjunctiva and sclera are not injected. Cornea within normal limits. Periorbital areas with no swelling, redness, or edema. ENT: Nares patent. No nasal discharge, no septal abnormalities noted. Tympanic membranes are normal and external auditory canals are clear. Oropharynx with no redness, swelling, or masses, exudates, or evidence of obstruction, uvula midline. Mucous membranes moist. Neck: Trachea midline, no thyromegaly or masses palpated, and no cervical lymphadenopathy. Supple, full range of motion without nuchal rigidity, or vertebral point tenderness. Chest/axilla: Normal chest wall appearance and motion. Nontender with no deformity. No lesions are appreciated. Cardiovascular: Regular rate and rhythm with a normal S1 and S2. No gallops, murmurs, or rubs. Normal PMI, no JVD. No pulse deficits. Respiratory: Lungs have equal breath sounds bilaterally, clear to auscultation and percussion. No rales, rhonchi or wheezes noted. No increased work of breathing, no retractions or nasal flaring. Abdomen/GI: Soft, with normal bowel sounds. No distension or tympany. No guarding or rebound. No evidence of tenderness throughout. Back: No spinal tenderness. No costovertebral tenderness. Skin: Warm, dry with normal turgor. Normal color with no rashes, no lesions, and no evidence of cellulitis. MS/ Extremity: Pulses equal, no cyanosis. Neurovascular intact. Full, normal range of motion. Neuro: Awake and alert, GCS 15, oriented to person, place, time, and situation. Cranial nerves II-XII grossly intact. Motor strength 5/5 in all extremities. Sensory grossly intact. Psych: Awake, alert, with orientation to person, place and time. Behavior, mood, and affect are within normal limits 07:46 ECG was reviewed by the Attending Physician. [facility] Vital Signs: 05:59 BP 147 / 63; Pulse 104; Resp 18; Temp 97.6; Pulse Ox 87% ; Pain 0/10; cp4 07:11 BP 147 / 73; Pulse 96; Resp 18; Pulse Ox 96% on 3 lpm NC; ko1 08:32 BP 133 / 66; Pulse 107; Resp 24; Pulse Ox 94% on 3 lpm NC; ko1 10:13 BP 123 / 65; Pulse 99; Resp 19; Pulse Ox 94% on 3 lpm NC; ko1 05:59 Pain Scale: Adult cp4 Jose Juan Coma Score: 07:09 Eye Response: spontaneous(4). Motor Response: obeys commands(6). Verbal Response: sp4 oriented(5). Total: 15. MDM: 06:12 Medical Screening Exam initiated sp4 07:10 Differential diagnosis: Nonspecific abd pain, gastritis, pancreatitis, diverticulitis, sp4 viral gastroenteritis, gastroenteritis. Data reviewed: vital signs, nurses notes, EMS record, old medical records, lab test result(s), EKG, radiologic studies, CT scan. Consideration of Admission/Observation Escalation of care including admission/observation considered. Transition of care: After a detail discussion of the patient's case, care is transferred to Jameel Rocha MD. 05/27 06:04 Order name: CBC with Diff; Complete Time: 07:08 sp4 05/27 06:04 Order name: CMP; Complete Time: 07:08 sp4 05/27 06:04 Order name: Lipase; Complete Time: 07:08 sp4 05/27 06:04 Order name: Urinalysis w/ reflexes sp4 05/27 07:08 Order name: Troponin High Sensitivity; Complete Time: 07:37 sp4 05/27 07:08 Order name: BNP; Complete Time: 07:37 sp4 05/27 07:09 Order name: CRP; Complete Time: 07:37 sp4 05/27 07:26 Order name: Phosphorus pau 05/27 09:05 Order name: Blood Culture Adult (2) pau 05/27 09:28 Order name: T4 Free EDMS 05/27 09:28 Order name: Thyroid Stimulating Hormone EDMS 05/27 09:28 Order name: Urinalysis w/ reflexes EDMS 05/27 09:28 Order name: CBC with Automated Diff EDMS 05/27 09:28 Order name: CBC with Automated Diff EDMS 05/27 09:28 Order name: CBC with Automated Diff EDMS 05/27 09:28 Order name: CBC with Automated Diff EDMS 05/27 09:28 Order name: CBC with Automated Diff EDMS 05/27 09:28 Order name: CBC with Automated Diff EDMS 05/27 09:28 Order name: Comprehensive Metabolic Panel EDMS 05/27 09:28 Order name: Comprehensive Metabolic Panel EDMS 05/27 09:28 Order name: Comprehensive Metabolic Panel EDMS 05/27 09:28 Order name: Comprehensive Metabolic Panel EDMS 05/27 09:28 Order name: Comprehensive Metabolic Panel EDMS 05/27 09:28 Order name: Comprehensive Metabolic Panel EDMS 05/27 09:28 Order name: Hemoglobin A1c EDMS 05/27 09:28 Order name: Hemoglobin A1c EDMS 05/27 09:28 Order name: Lipid Profile EDMS 05/27 09:28 Order name: Lipid Profile EDMS 05/27 09:28 Order name: Magnesium EDMS 05/27 09:28 Order name: Magnesium EDMS 05/27 09:28 Order name: Magnesium EDMS 05/27 09:28 Order name: Magnesium EDMS 05/27 09:28 Order name: Magnesium EDMS 05/27 09:28 Order name: Magnesium EDMS 05/27 09:28 Order name: Phosphorus EDMS 05/27 09:28 Order name: Phosphorus EDMS 05/27 09:28 Order name: Phosphorus EDMS 05/27 09:28 Order name: Phosphorus EDMS 05/27 09:28 Order name: Phosphorus EDMS 05/27 09:28 Order name: Phosphorus EDMS 05/27 09:28 Order name: Troponin High Sensitivity EDMS 05/27 09:28 Order name: Troponin High Sensitivity EDMS 05/27 09:28 Order name: Troponin High Sensitivity EDMS 05/27 07:31 Order name: Chest Single View XRAY; Complete Time: 09:04 [facility] 05/27 07:45 Order name: CT Chest, Abdomen, Pelvis - W/Contrast; Complete Time: 09:04 [facility] 05/27 09:28 Order name: Physical Therapy Consult [facility] 05/27 06:04 Order name: IV Saline Lock; Complete Time: 06:28 sp4 05/27 06:04 Order name: Labs collected and sent; Complete Time: 06:28 sp4 05/27 07:08 Order name: EKG - Nurse/Tech; Complete Time: 07:30 sp4 EC:46 Rate is 103 beats/min. Rhythm is regular. QRS Alverda is Normal. MA interval is normal. pau QRS interval is normal. QT interval is normal. No Q waves. T waves are Normal. No ST changes noted. Clinical impression: Abnormal EKG without significant change and No evidence of ischemia. Interpreted by me. Reviewed by me. Administered Medications: 06:28 Drug: Famotidine IVP 20 mg IVP once; dilute with 10 mL 0.9% NaCl; give over 2 minutes cp4 Route: IVP; Site: right antecubital; 06:51 Follow up: Response: No adverse reaction cp4 06:28 Drug: Ondansetron IVP 4 mg IVP once; over 2 minutes Route: IVP; Site: right antecubital;cp4 06:52 Follow up: Response: No adverse reaction cp4 06:28 Drug: metoCLOPramide IVP 10 mg IVP once; over 1 to 2 minutes Route: IVP; Site: right cp4 antecubital; 06:51 Follow up: Response: No adverse reaction cp4 06:28 Drug: NS 0.9% IV 500 ml IV at bolus once; to be given as a bolus over 30 minutes Route: cp4 IV; Rate: bolus; Site: right antecubital; 06:51 Follow up: IV Status: Completed infusion cp4 06:52 Drug: NS 0.9% IV 1000 ml IV at 125 ml/hr continuous Route: IV; Rate: 125 ml/hr; Site: cp4 right antecubital; 08:24 Follow up: Response: No adverse reaction; IV Status: Order to discontinue infusion; IV ko1 Intake: 200ml 07:36 Drug: Potassium Chloride IV 20 mEq IV at per protocol once; administer over 1-2 hours ko1 Route: IV; Rate: per protocol; Site: right antecubital; 10:00 Follow up: Response: No adverse reaction; IV Status: Completed infusion; IV Intake: ko1 100ml 07:36 Drug: NS 0.9% with KCl IV 20 mEq/L 1000 ml IV at 125 ml/hr continuous Route: IV; Rate: ko1 125 ml/hr; Site: right antecubital; 10:10 Follow up: Response: No adverse reaction; IV Status: Infusion continued upon admission ko1 08:00 Drug: MethylPrednisoLONE IVP 125 mg IVP once Route: IVP; Site: right antecubital; ko1 08:15 Follow up: Response: No adverse reaction ko1 08:00 Drug: Levalbuterol Inhalation 2.5 mg Inhalation once Route: Inhalation; ko1 08:23 Follow up: Response: No adverse reaction; Wheezing diminished ko1 08:01 Drug: Ipratropium Inhalation Aerosol 0.5 mg Inhalation once Route: Inhalation; ko1 08:23 Follow up: Response: No adverse reaction; Wheezing diminished ko1 10:02 Drug: levofloxacin IVPB 500 mg 100 ml IVPB once over 60 mins Volume: 100 ml; Route: ko1 IVPB; Infused Over: 60 mins; Site: right antecubital; 10:13 Follow up: Response: No adverse reaction; IV Status: Infusion continued upon admission ko1 10:11 Drug: Potassium Chloride IV 20 mEq IV at per protocol once; administer over 1-2 hours ko1 Route: IV; Rate: per protocol; Site: right antecubital; 10:11 Follow up: IV Status: Infusion continued upon admission ko1 Disposition Summary: 11/30/24 07:44 Hospitalization Ordered Notes: Hospitalization Status: Inpatient Admission pau Provider: Stu Woods cha Location: Telemetry/MedSurg (Inpatient) pau Condition: Fair pau Problem: new pau Symptoms: have improved pau Bed/Room Type: Standard pau Room Assignment: 208(05/27/24 09:35) sp Diagnosis - Hypokalemia pau - Hypoxemia pau - COPD/ Chronic obstructive pulmonary disease, unspecified pau - Vomiting pau - Dehydration pau Forms: - Medication Reconciliation Form pau - SBAR form pau - Leadership Thank You Letter pau Signatures: Dispatcher [employer] EDMS Jameel Rocha MD MD cha Pinkerton, Shawna sp Oliver, Kathy, RN RN ko1 Ryan Greenwood MD MD sp4 Nusrat Frey cp4 Corrections: (The following items were deleted from the chart) 06:02 06:01 PMHx: colostomy with reversal; cp4 cp4 06:02 06:01 PMHx: Hypertension; cp4 cp4 06:02 06:01 PMHx: cardiac stents 3; cp4 cp4 06:02 06:01 PSHx: Appendectomy; cp4 cp4 06:02 06:01 PSHx: Tonsillectomy; cp4 cp4 06:02 06:01 PSHx: Adenoid excision; cp4 cp4 07:09 07:09 Troponin High Sensitivity+C.LAB.BRZ ordered. EDMS EDMS 07:09 07:09 PROBNP+C.LAB.BRZ ordered. EDMS EDMS 07:09 07:09 C-REACTIVE PROTEIN+C.LAB.BRZ ordered. EDMS EDMS 07:56 06:18 Abdomen Pelvis W Con+CT.RAD.BRZ ordered. EDMS EDMS 09:35 07:44 pau sp
--- NOTE | 2024-05-27 07:45 | ER ---
Nurse's Notes [facility] Name: Adrienne Phelan Age: 88 yrs Sex: Female : 1935 Arrival Date: 05/27/2024 Time: 05:58 Bed 8 Private MD: Diagnosis: Hypokalemia;Hypoxemia;COPD/ Chronic obstructive pulmonary disease, unspecified;Vomiting;Dehydration Presentation: 05/27 05:59 Chief complaint: EMS states: nausea and vomiting x3 days. Gave 4 mg PO zofran and 25 mg cp4 IM phenergan. Patient O2 at 85 % on RA. Coronavirus screen: Vaccine status: At this time, the client does not indicate any symptoms associated with coronavirus-19. Ebola Screen: Patient negative for fever greater than or equal to 101.5 degrees Fahrenheit, and additional compatible Ebola Virus Disease symptoms Patient denies exposure to infectious person. Patient denies travel to an Ebola-affected area in the 21 days before illness onset. No symptoms or risks identified at this time. Initial Sepsis Screen: Does the patient meet any 2 criteria? HR > 90 bpm. No. Patient's initial sepsis screen is negative. Does the patient have a suspected source of infection? No. Patient's initial sepsis screen is negative. Risk Assessment: Do you want to hurt yourself or someone else? Patient reports no desire to harm self or others. Onset of symptoms was May 23, 2024. 05:59 Method Of Arrival: EMS: [facility] 05:59 Acuity: JASON 3 cp4 Triage Assessment: 06:01 General: Appears in no apparent distress. uncomfortable, Behavior is calm, cooperative, cp4 appropriate for age. Pain: Denies pain. EENT: No signs and/or symptoms were reported regarding the EENT system. Neuro: Level of Consciousness is awake, alert, obeys commands, Oriented to person, place, time, situation. Cardiovascular: Patient's skin is warm and dry. Respiratory: Airway is patent Respiratory effort is even, unlabored. GI: Abdomen is round non-distended, Bowel sounds present X 4 quads. Abd is soft and non tender X 4 quads. Reports nausea, vomiting. : No signs and/or symptoms were reported regarding the genitourinary system. Derm: No signs and/or symptoms reported regarding the dermatologic system. Musculoskeletal: No signs and/or symptoms reported regarding the musculoskeletal system. Historical: - Allergies: 06:01 Codeine; cp4 06:01 PENICILLINS; cp4 06:01 Tetanus Vaccines and Toxoid; cp4 06:01 Benadryl; cp4 - PMHx: 07:42 Congestive heart failure; Hypertensive disorder; ko1 - PSHx: 07:42 Coronary artery bypass graft; pacemaker; ko1 - Immunization history:: Adult Immunizations up to date. - Infectious Disease History:: Denies. - Social history:: Smoking status: Patient denies any tobacco usage or history of. - Family history:: not pertinent. Screenin:03 [facility] ED Fall Risk Assessment (Adult) History of falling in the last 3 months, cp4 including since admission No falls in past 3 months (0 pts) Confusion or Disorientation No (0 pts) Intoxicated or Sedated No (0 pts) Impaired Gait No (0 pts) Mobility Assist Device Used No (0 pt) Altered Elimination No (0 pt) Score/Fall Risk Level 0 - 2 = Low Risk Oriented to surroundings, Maintained a safe environment, Assessed \T\ reinforced patient's understanding of fall precautions, Hourly rounding (assess needs \T\ fall precautionary measures) done. Abuse screen: Denies threats or abuse. Nutritional screening: No deficits noted. Tuberculosis screening: No symptoms or risk factors identified. Assessment: 06:03 Reassessment: No changes from previously documented assessment. General: Appears. cp4 07:11 GI: Reports intolerance of fluids, intolerance of food, nausea, vomiting. ko1 08:04 Reassessment: attempted to wean oxygen down to 1.5 lpm, patients sats decreased to 85%. ko1 Placed back on 3lpm NC, sats increased back to 96%. Patient states she does not wear oxygen at home. 08:32 GI: Abdomen is flat, non-distended, Bowel sounds present X 4 quads. Abd is soft X 4 ko1 quads. Vital Signs: 05:59 BP 147 / 63; Pulse 104; Resp 18; Temp 97.6; Pulse Ox 87% ; Pain 0/10; cp4 07:11 BP 147 / 73; Pulse 96; Resp 18; Pulse Ox 96% on 3 lpm NC; ko1 08:32 BP 133 / 66; Pulse 107; Resp 24; Pulse Ox 94% on 3 lpm NC; ko1 10:13 BP 123 / 65; Pulse 99; Resp 19; Pulse Ox 94% on 3 lpm NC; ko1 05:59 Pain Scale: Adult cp4 [place] Coma Score: 07:09 Eye Response: spontaneous(4). Motor Response: obeys commands(6). Verbal Response: sp4 oriented(5). Total: 15. ED Course: 05:59 Patient arrived in ED. jj6 05:59 Nusrat Frey is Primary Nurse. cp4 06:01 Triage completed. cp4 06:01 Arm band placed on right wrist. Patient placed in an exam room, on a stretcher. cp4 06:03 Bed in low position. Call light in reach. Side rails up X2. cp4 06:03 No provider procedures requiring assistance completed. cp4 06:04 Ryan Greenwood MD is Attending Physician. sp4 06:29 Initial lab(s) drawn, by ED staff, sent to lab. Inserted saline lock: 20 gauge in right 4 antecubital area, using aseptic technique. Blood collected. Flushed with 10 mL NS. 07:10 Attending Physician role handed off by Ryan Greenwood MD pau 07:10 Jameel Rocha MD is Attending Physician. pau 07:11 Provided Education on: labs, meds, npo. ko1 07:11 Pulse ox on. NIBP on. Door closed. Noise minimized. Lights dimmed. Warm blanket given. ko1 Pillow given. 07:40 Stu Woods is Hospitalizing Provider. pau 07:55 CT Chest, Abdomen, Pelvis - W/Contrast In Process Unspecified. EDMS 08:07 Chest Single View XRAY In Process Unspecified. EDMS 08:17 Patient requests liquids. Patient requests rest room assistance. ko1 08:17 Assisted to bathroom. ko1 08:32 Patient admitted, IV remains in place. ko1 10:02 Blood Culture Adult (2) Sent. ko1 Administered Medications: 06:28 Drug: Famotidine IVP 20 mg IVP once; dilute with 10 mL 0.9% NaCl; give over 2 minutes cp4 Route: IVP; Site: right antecubital; 06:51 Follow up: Response: No adverse reaction cp4 06:28 Drug: Ondansetron IVP 4 mg IVP once; over 2 minutes Route: IVP; Site: right antecubital;cp4 06:52 Follow up: Response: No adverse reaction cp4 06:28 Drug: metoCLOPramide IVP 10 mg IVP once; over 1 to 2 minutes Route: IVP; Site: right cp4 antecubital; 06:51 Follow up: Response: No adverse reaction 4 06:28 Drug: NS 0.9% IV 500 ml IV at bolus once; to be given as a bolus over 30 minutes Route: cp4 IV; Rate: bolus; Site: right antecubital; 06:51 Follow up: IV Status: Completed infusion 4 06:52 Drug: NS 0.9% IV 1000 ml IV at 125 ml/hr continuous Route: IV; Rate: 125 ml/hr; Site: cp4 right antecubital; 08:24 Follow up: Response: No adverse reaction; IV Status: Order to discontinue infusion; IV ko1 Intake: 200ml 07:36 Drug: Potassium Chloride IV 20 mEq IV at per protocol once; administer over 1-2 hours ko1 Route: IV; Rate: per protocol; Site: right antecubital; 10:00 Follow up: Response: No adverse reaction; IV Status: Completed infusion; IV Intake: ko1 100ml 07:36 Drug: NS 0.9% with KCl IV 20 mEq/L 1000 ml IV at 125 ml/hr continuous Route: IV; Rate: ko1 125 ml/hr; Site: right antecubital; 10:10 Follow up: Response: No adverse reaction; IV Status: Infusion continued upon admission ko1 08:00 Drug: MethylPrednisoLONE IVP 125 mg IVP once Route: IVP; Site: right antecubital; ko1 08:15 Follow up: Response: No adverse reaction ko1 08:00 Drug: Levalbuterol Inhalation 2.5 mg Inhalation once Route: Inhalation; ko1 08:23 Follow up: Response: No adverse reaction; Wheezing diminished ko1 08:01 Drug: Ipratropium Inhalation Aerosol 0.5 mg Inhalation once Route: Inhalation; ko1 08:23 Follow up: Response: No adverse reaction; Wheezing diminished ko1 10:02 Drug: levofloxacin IVPB 500 mg 100 ml IVPB once over 60 mins Volume: 100 ml; Route: ko1 IVPB; Infused Over: 60 mins; Site: right antecubital; 10:13 Follow up: Response: No adverse reaction; IV Status: Infusion continued upon admission ko1 10:11 Drug: Potassium Chloride IV 20 mEq IV at per protocol once; administer over 1-2 hours ko1 Route: IV; Rate: per protocol; Site: right antecubital; 10:11 Follow up: IV Status: Infusion continued upon admission ko1 Medication: 06:03 VIS not applicable for this client. cp4 Intake: 08:24 IV: 200ml; Total: 200ml. ko1 10:00 IV: 100ml; Total: 300ml. ko1 Outcome: 07:44 Decision to Hospitalize by Provider. pau 10:13 Admitted to Tele accompanied by tech, via stretcher, room 208, with oxygen, with chart, ko1 10:13 Condition: stable 10:13 Instructed on the need for admit, 10:35 Patient left the ED. ko1 Signatures: Dispatcher [employer] EDJameel Doherty MD MD cha Jeffries, Jennifer jj6 Mary Kelly RN RN ko1 Ryan Greenwood MD MD sp4 Nusrat Frey cp4 Corrections: (The following items were deleted from the chart) 06:02 06:01 PMHx: colostomy with reversal; cp4 cp4 06:02 06:01 PMHx: Hypertension; cp4 cp4 06:02 06:01 PMHx: cardiac stents 3; cp4 cp4 06:02 06:01 PSHx: Appendectomy; cp4 cp4 06:02 06:01 PSHx: Tonsillectomy; cp4 cp4 06:02 06:01 PSHx: Adenoid excision; cp4 cp4
[2024-05-27] MEDS ORDERED: IPRATROPIUM BROM 0.5MG/2.5ML ONE (07:51)
[2024-05-27] MEDS ORDERED: LEVALBUTEROL 1.25 MG/3 ML NEB ONE (07:51)
[2024-05-27] MEDS ORDERED: METHYLPREDNISOLONE 125 MG INJ ONE (07:51)
--- NOTE | 2024-05-27 08:04 | P.HP ---
Certification for Inpatient Patient admitted to: Observation With expected LOS: <2 Midnights Patient will require the following post-hospital care: None Practitioner: I am a practitioner with admitting privileges, knowledge of patient current condition, hospital course, and medical plan of care. Services: Services provided to patient in accordance with Admission requirements found in Title 42 Section 412.3 of the Code of Federal Regulations Patient History Date of Service: 05/28/24 Reason for admission: Intractable nausea vomiting History of Present Illness: Adrienne Phelan is an 88 year old female with Pmhx CHF, CAD status post three- vessel CABG who presented to the ED with moderate to severe nausea for the past 3 days, Phenergan IM was administered by EMS. She reports dry heaves with severe nausea for three days and feeling so bad she called EMS. She denies having experienced this in the past. She reports having chronic post nasal drip and coughing but no home oxygen. Initial vitals9 BP 147 / 63; Pulse 104; Resp 18; Temp 97.6; Pulse Ox 87% laboratory evaluation significant for sodium 133, potassium 2.7, serum glucose 168, C-reactive protein 164, BNP 2984 CT CAP reports "1. Predominantly basilar airspace disease with debris/secretions in the bronchi concerning for pneumonia or pneumonitis, possibly secondary to aspiration. 2. No acute findings within the pelvis. 3. Thoracic and lumbar compression fractures that are favored chronic. Correlate clinically. If there is concern for an acute compression fracture or if acuity needs to be assessed, MRI could better discern." Chest xray reports " Basilar airspace disease which could reflect pneumonia or pneumonitis. Reference same day CT." Adrienne will be admitted to hospitalist service for further treatment of intractable nausea/vomiting. Allergies codeine [Codeine] Allergy (Verified 11/05/19 05:19) Nausea/Vomiting Penicillins Allergy (Verified 11/05/19 05:19) Nausea/Vomiting Tetanus Vaccines and Toxoid [Tetanus Vaccines & Toxoid] Allergy (Verified 11/05/19 05:19) Anaphylaxis Home Medications: Clopidogrel Bisulfate [Plavix*] 75 mg PO DAILY 08/06/14 Atorvastatin Calcium [Lipitor] 80 mg PO BEDTIME 11/05/19 Cyanocobalamin (Vitamin B-12) [Vitamin B-12] 05/27/24 Docusate [Colace Cap] 100 mg PO PRN 05/27/24 Famotidine 20 mg PO BID 05/27/24 Furosemide [Lasix] 05/27/24 Hyoscyamine Sulfate 0.125 mg SL QID 05/27/24 Metoprolol Succinate [Toprol Xl] 25 mg PO ONCE 05/27/24 Montelukast [Singulair] 10 mg PO DAILY 05/27/24 Potassium Chloride 10 meq PO 05/27/24 clonazePAM [Klonopin] 0.5 mg PO 05/27/24 - Past Medical/Surgical History Diabetic: No -: heart stents x3 -: hypertensive -: bowel surgery -: colostomy reversal 2008 - Social History Smoking Status: Never smoker Alcohol use: No CD- Drugs: No Review of Systems General: Chills Gastrointestinal: Nausea Physical Examination - Physical Exam General: Alert, In no apparent distress, Oriented x3, Other (uncomfortable) HEENT: Atraumatic, Normocephalic, PERRLA Neck: Supple, 2+ carotid pulse no bruit Respiratory: Clear to auscultation bilaterally, Normal air movement Cardiovascular: Normal pulses, Normal S1 S2, Other (pacermaker), Irregular heart rate/rhythm Capillary refill: <2 Seconds Gastrointestinal: Normal bowel sounds, Soft and benign Musculoskeletal: No clubbing Integumentary: No rashes Neurological: Normal speech, Normal tone - Studies Laboratory Data (last 24 hrs) 05/27/24 05/27/24 06:25 06:25 WBC 6.00 Hgb 13.3 Hct 39.8 Plt Count 245 Sodium 133 L Potassium 2.7 L BUN 21 H Creatinine 0.97 Glucose 168 H Total Bilirubin 1.0 AST 25 ALT 18 Alkaline Phosphatase 81 Lipase 17 Assessment and Plan - Plan Assessment and plan Acute aspiration pneumonia -CT CAP reports "1. Predominantly basilar airspace disease with debris/secretions in the bronchi concerning for pneumonia or pneumonitis, possibly secondary to aspiration. 2. No acute findings within the pelvis. 3. Thoracic and lumbar compression fractures that are favored chronic. Correlate clinically. If there is concern for an acute compression fracture or if acuity needs to be assessed, MRI could better discern." -Chest xray reports " Basilar airspace disease which could reflect pneumonia or pneumonitis. Reference same day CT." -Merrem IV, allergy to penicillin -Aspiration precaution -C-reactive protein 164 -Antiemetics -Follow blood cultures -Sputum culture -oxygen protocol Congestive heart failure CAD status post CABG -BNP 3984 -Hold on IV fluids -Continue home medication -Troponin 50, serial pending Intractable nausea -Protonix IV twice daily -Carafate -Clear liquid diet, advance slowly -Moderate Zofran use due to prolonged QTc, EKG in the a.m. -GI consult Prolonged QT/QTc -QTc 450 -Repeat EKG in the a.m. -Moderate use of Zofran DVT PPx Full code LOS 2 days Discharge Plan: Home Plan to discharge in: 48 Hours - Advance Directives Does patient have a Living Will: No Does patient have a Durable POA for Healthcare: No
--- NOTE | 2024-05-27 08:08 | RAD REPORT ---
EXAM: CT CHEST, ABDOMEN AND PELVIS WITHOUT CONTRAST CLINICAL INDICATION: Female, 88 years Abdominal distention;Dyspnea TECHNIQUE: CT chest, abdomen and pelvis was performed, with IV contrast, as per department protocol. Axial, sagittal and coronal reconstructions were obtained. One or more of the following dose reduction techniques were used: Automated exposure control, adjustment of the mA and/or kV according to the patient size, and/or iterative reconstruction. Unless otherwise specified, incidental findings do not require dedicated imaging follow-up. [id number]. COMPARISON: CT 11/05/2019 FINDINGS: Chest: LOWER NECK/CHEST WALL: Visualized thyroid gland and soft tissues are normal. Left upper chest wall pa cemaker. LUNGS AND AIRWAYS: Mildly consolidative airspace disease in the right lower lobe and to lesser extent the left lung base. There is debris/secretions within the lower lobe airways PLEURA: No pleural effusion. No pneumothorax. Hemidiaphragms are normally positioned. MEDIASTINUM AND LYMPH NODES: No mediastinal mass or fluid collection. Normal size mediastinal, hilar, and axillary lymph nodes. THORACIC AORTA: Normal caliber and configuration. PULMONARY ARTERIES: Normal caliber. HEART: Multivessel coronary disease. Aortic valve calcifications. Mitral annular calcifications. Abdomen/Pelvis LIVER: Normal in size and contour. No focal lesion. Hepatic steatosis GALLBLADDER/BILE DUCTS: No biliary ductal dilatation. PANCREAS: No mass, ductal dilation, or nellie-pancreatic fluid. SPLEEN: Normal size. No focal lesion. ADRENALS: Normal; no mass. KIDNEYS AND URETERS: Normal size and contour. No hydronephrosis. Bilateral renal lesions which are ei ther benign in appearance or too small to accurately characterize but statistically benign. Punctate right renal calculus. GASTROINTESTINAL TRACT: Stomach is non-dilated. Small bowel has normal course and caliber. No colonic wall thickening or pericolonic inflammatory changes. PERITONEUM: No free fluid. Prior ventral hernia repair with left lower abdominal wall laxity. LYMPH NODES: No lymphadenopathy. ABDOMINAL AORTA AND OTHER VESSELS: Aortic atherosclerosis. Tortuous abdominal aorta but no aneurysm. URINARY BLADDER: Normal contour. REPRODUCTIVE ORGANS: No pathologic process. MUSCULOSKELETAL: Sternotomy. Thoracic and lumbar compression fractures which appear chronic. This inc ludes T5, T10, T11, T12, and L3. Multilevel degenerative changes are present in the spine. ADDITIONAL FINDINGS: None IMPRESSION: 1. Predominantly basilar airspace disease with debris/secretions in the bronchi concerning for pneumo homero or pneumonitis, possibly secondary to aspiration. 2. No acute findings within the pelvis. 3. Thoracic and lumbar compression fractures that are favored chronic. Correlate clinically. If there is concern for an acute compression fracture or if acuity needs to be assessed, MRI could better discern.
--- NOTE | 2024-05-27 08:09 | RAD REPORT ---
EXAM: Chest Single View HISTORY: DYSPNEA COMPARISON: 08/09/1953 FINDINGS: LUNGS/PLEURA: Airspace disease in the lung bases bilaterally. MEDIASTINUM: The mediastinal silhouette is within normal limits. CARDIAC: Mild coronary medley. Sternotomy. Pacemaker. UPPER ABDOMEN: No significant abnormality. BONES: No acute fracture. LINES/TUBES/OTHER: N/A IMPRESSION: Basilar airspace disease which could reflect pneumonia or pneumonitis. Reference same day CT.
[2024-05-27] MEDS ORDERED: Levofloxacin500mg IV 500 MG/100 ML BAG IV ONE (09:43)
[2024-05-27] MEDS ORDERED: PIPER TAZO 3.375 GM in NA CHLORIDE 0.9% 100 ML IV SCH (10:31)
[2024-05-27] MEDS: SUCRALFATE 1GM/10ML UCUP PO SCH (11:30)
[2024-05-27] MEDS: ONDANSETRON 4 MG/2 ML VIAL IV PRN (12:17)
[2024-05-27] MEDS: Meropenem 1,000 MG in NA CHLORIDE 0.9% 100 ML IV SCH (12:17)
[2024-05-27 12:43] LABS: Specific Gravity ND (1.005-1.030); Sqamous Epithelial <5 /HPF (None Seen); Urine Bacteria None Seen /HPF (<20); Urine Bilirubin NEGATIVE (Negative); Urine Blood 2+ (Negative); Urine Clarity Clear (Clear); Urine Color Light-Yellow (Yellow); Urine Culture Reflex Order NOT NEEDED; Urine Glucose NEGATIVE (Negative); Urine Ketones NEGATIVE (Negative); Urine Microscopic Reflex YN ORDER UMIC; Urine Nitrite NEGATIVE (Negative); Urine Protein 3+ (Negative); Urine RBC <5 /HPF (None Seen); Urine Urobilinogen Normal (Normal); Urine WBC None Seen /HPF (<5)
[2024-05-27] MEDS: METOCLOPRAMIDE 10 MG/2mL INJ IV PRN (19:24)
[2024-05-27] MEDS: PANTOPRAZOLE 40 MG INJ IVP SCH (20:15)
[2024-05-27] MEDS: NA CHLORIDE 0.9% 250 ML ONE (23:22)
[2024-05-27] MEDS: KCL 20 MEQ/100 mL IVPB 20 MEQ/100 ML BAG IV SCH (23:29)
[2024-05-28] MEDS: POTASSIUM 25 MEQ EFFERV TAB PO ONE ×2 (03:19→09:05)
[2024-05-28 05:48] LABS: Absolute Lymphocytes (CBC) 0.6 K/uL (0.7-4.9); Absolute Monocytes 0.4 K/uL (0.1-1.3); Absolute Neutrophil 5.7 K/uL (1.8-8.0); Basophils % 0.2 % (0-1.3); Eosinophils % 0.1 % (0-4.4); Hematocrit 36.6 % (36.0-45.0); Lymphocytes % 9.3 % (15.3-44.8); MCH 29.7 pg (27.0-35.0); MCHC 32.8 g/dL (32.0-36.0); MCV 90.4 fL (80-100); MPV 7.9 fL (7.6-11.3); Monocytes % 6.6 % (3.3-12.3); Neutrophils % 83.8 % (41.7-73.7); Platelets 206 thou/uL (152-406); RBC Red Blood Cell Count 4.04 M/uL (3.86-4.86); Red Cell Distribution Width 14.3 % (12.1-15.2)
[2024-05-28 06:17] LABS: Albumin 2.7 g/dL (3.4-5.0); Albumin/Globulin Ratio 0.6 (1.1-1.8); Bilirubin Total 0.9 mg/dL (0.2-1.0); Globulin 4.2 g/dL (2.3-3.5); Magnesium 1.3 mg/dL (1.6-2.4); Phosphorus 3.8 mg/dL (2.5-4.9); Protein, Total 6.9 g/dL (6.4-8.2); Thyroid Stimulating Hormone 1.04 uIU/mL (0.358-3.740)
[2024-05-28] MEDS ORDERED: NA CHLORIDE 0.9% 1,000 ML IV SCH (07:00)
[2024-05-28 07:24] LABS: Atypical Lymphocytes 1 %; Band Neutrophils 20 % (0-1); Blood Morphology Comment NOT SEEN (NOT SEEN); Differential Total Cells Count 100; Dohle Bodies PRESENT; Eosinophils 1 % (0-3); Lymphocytes 14 % (15-42); Monocytes 8 % (0-10); Platelet Estimate ADEQ; Segmented Neutrophils 56 % (40-80)
[2024-05-28] MEDS: Magnesium Sulfate 2gm IVPB 2 G/50 ML BAG IV ONE (08:24)
[2024-05-28] MEDS: NA CHLORIDE 0.9% 1,000 ML with POTASSIUM CL 40 MEQ IV SCH (09:55)
[2024-05-28] MEDS: PNEUMOCOCCAL VACCINE 0.5 ML IMVAC ONE (09:57)
--- NOTE | 2024-05-28 11:18 | P.PN ---
Date of Service: 05/28/24 Subjective Awake, cannot tolerate anything with orange flavor Reports some confusion this morning Lung sounds with rhonchi, on 3 LNC potassium added to fluids ROS 10 point ROS as noted above, otherwise negative Physical Exam General: Alert and Oriented x3, Other (uncomfortable) HEENT: Atraumatic, Normocephalic, PERRLA Neck: Supple, 2+ carotid pulse no bruit Respiratory: Rhonchi, Normal air movement, on 3 LNC Cardiovascular: Normal pulses, Normal S1 S2, Other (pacermaker), Irregular heart rate/rhythm Capillary refill: <2 Seconds Gastrointestinal: Normal bowel sounds, Soft and benign on palpation, Nondistended Musculoskeletal: No clubbing Integumentary: No rashes Neurological: Normal speech, Normal tone Vitals Reviewed Problem list Acute aspiration pneumonia Elevated troponin Congestive heart failure CAD status post CABG Intractable nausea Hypokalemia Decreased PO intake Alcohol abuse Prolonged QT/QTc Assessment and Plan Acute aspiration pneumonia -CT CAP reports "1. Predominantly basilar airspace disease with debris/secretions in the bronchi concerning for pneumonia or pneumonitis, possibly secondary to aspiration. 2. No acute findings within the pelvis. 3. Thoracic and lumbar compression fractures that are favored chronic. Correlate clinically. If there is concern for an acute compression fracture or if acuity needs to be assessed, MRI could better discern." -Chest xray reports " Basilar airspace disease which could reflect pneumonia or pneumonitis. Reference same day CT." -Merrem IV, allergy to penicillin -Aspiration precaution -C-reactive protein 164 -Antiemetics- hold d/t QTc 500 -blood cultures-NGTD -Sputum culture- gram positive, culture pending -oxygen protocol Elevated troponin Congestive heart failure CAD status post CABG Pacemaker present -Pacemaker interrogated today -BNP 3984 -Hold on IV fluids -Continue home medication -Troponin 50/73.8/76.8/trend -Cardiology consult Intractable nausea Hypokalemia Decreased PO intake Alcohol abuse -thiamine and folic acid daily -CIWA score 8 -Protonix IV twice daily -Carafate, reglan -Clear liquid diet-tolerating, advance slowly -hold zofran d/t QTc 500 -GI consult -She reports inability to tolerate IV and PO forms, will add to a liter bag x1 DEZ -BUN/creatinine 36/1.43, GFR 36 -Gentle IVF Prolonged QT/QTc -QTc 450, trending now 500 -Repeat EKG in the a.m. -hold Zofran DVT PPx Full code LOS 2 days Discharge Plan: Home Plan to discharge in: 48 Hours <Pau Broderick - Last Filed: 05/28/24 10:50> Patient seen and examined. Plan of care discussed with Ms. Broderick. Patient with hypokalemia. She refused to drink oral potassium supplementation. Family reports patient drinks alcohol heavily daily. High risk for alcohol withdrawal syndrome. Patient nausea and vomiting has resolved and tolerating diet. She reports chronic shortness of breath from COPD. Troponin mildly elevated Plan: Replace potassium IV Watch for alcohol withdrawal Continue IV PPI and sucralfate Cardiology consulted for troponin elevation Bronchodilators Continue antibiotics for possible aspiration pneumonia. <jose juan puente - Last Filed: 05/28/24 17:44>
[2024-05-28] MEDS: CLOPIDOGREL 75 MG TABLET PO SCH (11:26)
[2024-05-28] MEDS: SUCRALFATE 1 GM TABLET PO SCH (11:26)
[2024-05-28] MEDS: THIAMINE HCL 100 MG TABLET PO SCH (11:26)
[2024-05-28] MEDS: HEPARIN 5000 UNIT/ML 1 ML VIAL SQ SCH (11:27)
[2024-05-28] MEDS: FOLIC ACID 1 MG TABLET PO SCH (11:27)
--- NOTE | 2024-05-28 14:13 | EKG ---
Test Date: 2024-05-27 Test Time: 07:25:46 Instrument Mechanics Supervisor: ANKUR MEASUREMENT RESULTS: Intervals: Rate: 103 WA: 230 QRSD: 106 QT: 344 QTc: 450 [place]: P: 36 WA: 230 QRS: -58 T: 112 INTERPRETIVE STATEMENTS: Atrial-sensed ventricular-paced rhythm with prolonged AV conduction Abnormal ECG Compared to ECG 08/09/2023 03:36:55 Sinus tachycardia no longer present ST (T wave) deviation no longer present Electronically Signed On 05-28-24 14:11:58 RADIO ASSEMBLER by Vinny Bains
--- NOTE | 2024-05-28 15:37 | CON ---
Date of Consultation: 05/28/2024 Reason For Consultation: Elevated troponin. History Of Present Illness: This is an 88-year-old female, who comes into the emergency room with na usea and vomiting and upper respiratory tract infection. She has history of coronary artery disease, status post 3-vessel CABG earlier this year. She presented with a postnasal drip and then cough, pr oducing large amount of secretions and she stopped swallowing. Then started feeling nauseated and vo miting. Denies having any chest pain. She is mildly short of breath and has productive cough with y ellow sputum production. Past Medical History: Coronary artery disease, hypertension, dyslipidemia. Medications: Refer to reconciliation sheet for detailed list. Medications: Reviewed. Allergies: CODEINE, PENICILLIN, AND TETANUS. Family History: No premature coronary artery disease or cancer. Social History: She does not smoke or drink. Does not use any drugs. Review of Systems: All systems reviewed and they are negative except as mentioned in the HPI. Physical Examination: Vital Signs: Reviewed. Head and Neck: Pupils are equal, reactive to light. Intact eye movements. No JVD. No cervical lym phadenopathy. Neck supple. Thyroid is not enlarged. Lungs: Clear to auscultation bilaterally. No crackles. No accessory muscle use. Heart: Irregular. No extra sounds. Abdomen: Soft and nontender. Bowel sounds positive. No organomegaly. No masses or hernia. No rig idity or rebound. Extremities: No edema, clubbing, cyanosis. Intact pulses. Skin: No rash or nodes. Neuro: Alert, awake, oriented x3. No acute focal deficits appreciated. Investigations: Troponin is 73 and 76. BUN 36, creatinine is 1.43, and hemoglobin is 12. Assessment/recommendation: 1.Elevated troponin slightly. No chest pain. She had history of bypass earlier this year and follo ws up with a pressure tank operator in [place]. This is likely demand ischemia. I asked her to follow up wit h her pressure tank operator post discharge and to see about the need for doing stress test as an inpatient. T here is no need to do any cardiac workup. 2.Upper respiratory tract infection, probably acute bronchitis. She might benefit from antibiotics. 3.Dyslipidemia. Continue Lipitor. 4.Coronary artery disease, status post coronary artery bypass graft, on aspirin, Plavix to continue. Please obtain echocardiogram on her tomorrow morning. SR/MODL Voice ID: [id number] Report ID: [id number]
[2024-05-28] MEDS ORDERED: DOCUSATE NA 100 MG CAP PO SCH (18:00)
[2024-05-28] MEDS: IPRATROPIUM BROM 0.5MG/2.5ML NEB SCH (20:33)
[2024-05-28] MEDS: ALBUTEROL 2.5 MG/3 ML NEB SOL NEB SCH (20:33)
[2024-05-28] MEDS: Mupirocin NASAL 2 APPL/1 GM TUBE NAS SCH (20:57)
[2024-05-28] MEDS: clonazePAM 0.5 MG TAB PO PRN (20:57)
[2024-05-28] MEDS: SODIUM CHLORIDE 0.9% 10ML INJ IV PRN (20:58)
[2024-05-28] MEDS: ATORVASTATIN 80 MG TAB PO SCH (21:00)
[2024-05-29 04:59] LABS: Absolute Lymphocytes (CBC) 0.3 K/uL (0.7-4.9); Absolute Monocytes 0.3 K/uL (0.1-1.3); Absolute Neutrophil 6.5 K/uL (1.8-8.0); Hematocrit 38.7 % (36.0-45.0); Hemoglobin 12.5 g/dL (12.0-15.0); Lymphocytes % 3.8 % (15.3-44.8); MCH 29.6 pg (27.0-35.0); MCHC 32.2 g/dL (32.0-36.0); MCV 91.8 fL (80-100); MPV 8.2 fL (7.6-11.3); Monocytes % 3.9 % (3.3-12.3); Platelets 190 thou/uL (152-406); RBC Red Blood Cell Count 4.21 M/uL (3.86-4.86); Red Cell Distribution Width 14.2 % (12.1-15.2)
[2024-05-29 05:06] LABS: Albumin 2.5 g/dL (3.4-5.0); Albumin/Globulin Ratio 0.6 (1.1-1.8); Anion Gap 11.1 mEq/L (5.0-15.0); Bilirubin Total 0.7 mg/dL (0.2-1.0); Globulin 4.3 g/dL (2.3-3.5); Magnesium 1.8 mg/dL (1.6-2.4); Phosphorus 2.5 mg/dL (2.5-4.9); Potassium 3.1 mEq/L (3.5-5.1); Protein, Total 6.8 g/dL (6.4-8.2)
[2024-05-29 05:10] LABS: Neutrophils % 92.3 % (41.7-73.7)
[2024-05-29] MEDS: KCL 20 MEQ/100 mL IVPB 100 ML IV SCH (08:33)
[2024-05-29] MEDS: NA CHLORIDE 0.9% 250 ML ONE (08:33)
[2024-05-29] MEDS: MONTELUKAST 10 MG TAB PO SCH (08:35)
[2024-05-29] MEDS: POTASS/SODIUM PHOSPHATE 1 PKT POWD.PACK PO SCH (08:36)
--- NOTE | 2024-05-29 09:39 | P.PN ---
Subjective Date of Service: 05/29/24 Chief Complaint: Intractable nausea vomiting Subjective: No new changes, No C/O voiced, Tolerating diet, Ambulating, Improving Review of Systems 10-point ROS is otherwise unremarkable Physical Examination - Vital Signs Temperature: 98.9 F Blood Pressure: 126/69 Pulse: 60 Respirations: 16 Pulse Ox (%): 98 - Physical Exam General: Alert, In no apparent distress HEENT: Atraumatic, PERRLA, EOMI Neck: Supple, JVD not distended Respiratory: Clear to auscultation bilaterally, Normal air movement Cardiovascular: Regular rate/rhythm, Normal S1 S2 Gastrointestinal: Normal bowel sounds, No tenderness Musculoskeletal: No tenderness Integumentary: No rashes Neurological: Normal speech, Normal tone, Normal affect Lymphatics: No axilla or inguinal lymphadenopathy - Studies Medications List Reviewed: Yes Assessment And Plan - Current Problems (Diagnosis) (1) SOB (shortness of breath) Current Visit: Yes Status: Acute Plan: Most likely secondary to URI and possible PNA, no signs of volume overload, although her BNP is elevated, get Echo to check on filling pressures. continue home dose lasix 20 mg daily (2) Pacemaker Current Visit: Yes Status: Acute Plan: device interrogation shows normal functioning pacemaker. (3) Coronary artery disease Current Visit: No Status: Acute Plan: Patient is s/p CABG x 3 back in 07/2023, follows up with cardiology in [facility], patient with mild leak on troponin, trend down to normal, most likely demand ischemia as patient denies having chest pain continue ASA and Plavix. get echo
--- NOTE | 2024-05-29 10:19 | EKG ---
Test Date: 2024-05-28 Test Time: 06:48:34 Air Pollution Inspector: SREG MEASUREMENT RESULTS: Intervals: Rate: 75 MS: 188 QRSD: 96 QT: 448 QTc: 500 [place]: P: 54 MS: 188 QRS: -57 T: 84 INTERPRETIVE STATEMENTS: Electronic ventricular pacemaker Compared to ECG 05/28/2024 06:47:18 No significant changes Electronically Signed On 05-29-24 10:17:44 AUTO DISMANTLER by Jesse Bermudez
--- NOTE | 2024-05-29 10:19 | EKG ---
Test Date: 2024-05-28 Test Time: 06:47:18 Storekeeper Helper: SREG MEASUREMENT RESULTS: Intervals: Rate: 77 OK: 188 QRSD: 94 QT: 436 QTc: 493 [place]: P: 53 OK: 188 QRS: -55 T: 91 INTERPRETIVE STATEMENTS: Electronic ventricular pacemaker Compared to ECG 05/27/2024 07:25:46 Atrial-sensed ventricular-paced complex(es) or rhythm no longer present Electronically Signed On 05-29-24 10:17:46 SHOT TUBE MACHINE TENDER by Jesse Bermudez
--- NOTE | 2024-05-29 12:06 | P.PN ---
Date of Service: 05/29/24 Subjective Feeling better, no new complaints Appears weak, tolerating CLD will advance today Attempted to call Daughter at [phone] with no answer and voicemail is full Daughter reports her mother is a heavy drinker. ROS 10 point ROS as noted above, otherwise negative Physical Exam General: AAO x3, Other (uncomfortable) HEENT: Atraumatic, Normocephalic, PERRLA Neck: Supple, 2+ carotid pulse no bruit Respiratory: Normal air movement, Clear BBS, on 3 LNC Cardiovascular: Normal pulses, Normal S1 S2, Other (pacermaker), Irregular heart rate/rhythm Capillary refill: <2 Seconds Gastrointestinal: Normal bowel sounds, Soft on palpation, Nondistended Musculoskeletal: No clubbing Integumentary: No rashes Neurological: Normal speech, Normal tone Vitals Reviewed Problem list Acute aspiration pneumonia Elevated troponin Congestive heart failure CAD status post CABG Intractable nausea Hypokalemia Decreased PO intake Alcohol abuse Prolonged QT/QTc Assessment and Plan Acute aspiration pneumonia -CT CAP reports "1. Predominantly basilar airspace disease with debris/secretions in the bronchi concerning for pneumonia or pneumonitis, possibly secondary to aspiration. 2. No acute findings within the pelvis. 3. Thoracic and lumbar compression fractures that are favored chronic. Correlate clinically. If there is concern for an acute compression fracture or if acuity needs to be assessed, MRI could better discern." -Chest xray reports " Basilar airspace disease which could reflect pneumonia or pneumonitis. Reference same day CT." -Merrem IV, allergy to penicillin -Aspiration precaution -C-reactive protein 164 -Antiemetics- hold d/t QTc 500 -blood cultures-NGTD -Sputum culture- gram positive, culture pending -oxygen protocol Elevated troponin Congestive heart failure CAD status post CABG Pacemaker present -Pacemaker interrogated today -BNP 3984 -Hold on IV fluids -Continue home medication -Troponin 50/73.8/76.8 -Cardiology consult, ECHO ordered Intractable nausea Hypokalemia Decreased PO intake Alcohol abuse -thiamine and folic acid daily -CIWA score 0 -Protonix IV twice daily -Carafate, reglan -Clear liquid diet-tolerating, advance slowly -hold zofran d/t QTc 500 -GI consult -She reports inability to tolerate IV and PO forms, will add to a liter bag x1 DEZ -BUN/creatinine 40/1.35, GFR 38 -Gentle IVF -Merrem dose decreased Prolonged QT/QTc -QTc 450, 500 -Repeat EKG in the a.m. -hold Zofran DVT PPx Full code LOS 2 days Discharge Plan: Home Plan to discharge in: 48 Hours
[2024-05-29] MEDS: Meropenem 500 MG in NA CHLORIDE 0.9% 100 ML IV SCH (21:56)
[2024-05-29] MEDS ORDERED: ALBUTEROL 2.5 MG/3 ML NEB SOL NEB PRN (22:09)
[2024-05-29] MEDS ORDERED: IPRATROPIUM BROM 0.5MG/2.5ML NEB PRN (22:09)
[2024-05-29] MEDS: FUROSEMIDE 40 MG/4 ML VIAL IV ONE (22:23)
--- NOTE | 2024-05-29 22:42 | RAD REPORT ---
EXAMINATION: ONE VIEW CHEST XR CLINICAL INDICATION: Female, 88 years old.,SOB TECHNIQUE: Frontal chest projection is submitted. Examination is limited by patient positioning and t echnique. COMPARISON: 05/27/2024 FINDINGS: Stable retrocardiac opacity, possibly with a component of effusion. Perihilar streaky opacities exten ding to the right medial base, stable. No pneumothorax or sizable effusion. The heart is normal in size. Mediastinal contours are unchanged with sequelae of CABG and left chest wall pacer in place. IMPRESSION: Perihilar and retrocardiac opacities, stable, may suggest unresolved pneumonia.
[2024-05-30 05:32] LABS: Absolute Lymphocytes (CBC) 0.3 K/uL (0.7-4.9); Absolute Monocytes 0.2 K/uL (0.1-1.3); Absolute Neutrophil 6.3 K/uL (1.8-8.0); Hematocrit 35.3 % (36.0-45.0); Hemoglobin 11.9 g/dL (12.0-15.0); Lymphocytes % 4.7 % (15.3-44.8); MCH 30.5 pg (27.0-35.0); MCHC 33.8 g/dL (32.0-36.0); MPV 7.5 fL (7.6-11.3); Monocytes % 3.6 % (3.3-12.3); Neutrophils % 91.7 % (41.7-73.7); Nucleated Red Blood Cells % 0.1 % (0-0); Platelets 207 thou/uL (152-406); RBC Red Blood Cell Count 3.92 M/uL (3.86-4.86); Red Cell Distribution Width 14.3 % (12.1-15.2)
[2024-05-30 06:11] LABS: AST/SGOT 28 U/L (15-37); Albumin 1.9 g/dL (3.4-5.0); Albumin/Globulin Ratio 0.5 (1.1-1.8); Alkaline Phosphatase 48 U/L (45-117); Anion Gap 10.4 mEq/L (5.0-15.0); BUN Blood Urea Nitrogen 20 mg/dL (7-18); Bicarbonate 25 mEq/L (21-32); Bilirubin Total 0.4 mg/dL (0.2-1.0); Globulin 3.5 g/dL (2.3-3.5); Glomerular Filtration Rate 86 ml/min (=/>90); Glucose Level 90 mg/dL (74-106); Magnesium 1.1 mg/dL (1.6-2.4); Phosphorus 1.6 mg/dL (2.5-4.9); Protein, Total 5.4 g/dL (6.4-8.2); Sodium Level 139 mEq/L (136-145)
[2024-05-30 06:13] LABS: ALT/SGPT < 14 U/L (13-56)
[2024-05-30 06:14] LABS: Potassium 2.4 mEq/L (3.5-5.1)
[2024-05-30] MEDS: KCL 20 MEQ/100 mL IVPB 20 MEQ/100 ML BAG IV ONE (06:31)
[2024-05-30] MEDS: ALBUTEROL 2.5 MG/3 ML NEB SOL NEB SCH (07:30)
[2024-05-30] MEDS: IPRATROPIUM BROM 0.5MG/2.5ML NEB SCH (07:30)
[2024-05-30] MEDS: POTASSIUM CL SA 10 MEQ TAB PO ONE (08:45)
[2024-05-30] MEDS: MAGNESIUM SULFATE 1 gm IVPB 1 GM/100 ML BAG IV ONE (08:47)
[2024-05-30] MEDS: METRONIDAZOLE 500mg IVPB 500 MG/100 ML BAG IV SCH (09:45)
[2024-05-30] MEDS: CEFTRIAXONE 1,000 MG in NA CHLORIDE 0.9% 50 ML IVPB SCH (09:45)
[2024-05-30] MEDS ORDERED: CEFTRIAXONE 1,000 MG in NA CHLORIDE 0.9% 50 ML IM SCH (10:00)
[2024-05-30] MEDS: POTASSIUM 25 MEQ EFFERV TAB PO ONE ×3 (11:56→21:22)
[2024-05-30] MEDS: LORazepam 2 MG/ML VIAL IV ONE ×2 (13:05→22:34)
--- NOTE | 2024-05-30 18:31 | P.PN ---
Date of Service: 05/30/24 Subjective Sleeping but awakens easily increased work of breathing, in 4 LNC CXR reports "Perihilar and retrocardiac opacities, stable, may suggest unresolved pneumonia." ROS 10 point ROS as noted above, otherwise negative Physical Exam General: AAO x3, Other (uncomfortable) HEENT: Atraumatic, Normocephalic, PERRLA Neck: Supple, 2+ carotid pulse no bruit Respiratory: Normal air movement, Clear BBS, on 4 LNC Cardiovascular: Normal pulses, Normal S1 S2, Other (pacermaker), Irregular heart rate/rhythm Capillary refill: <2 Seconds Gastrointestinal: Normal bowel sounds, Soft on palpation, Nondistended Musculoskeletal: No clubbing Integumentary: No rashes Neurological: Normal speech, Normal tone Vitals Reviewed Problem list Acute aspiration pneumonia Elevated troponin Congestive heart failure CAD status post CABG Intractable nausea Hypokalemia Decreased PO intake Alcohol abuse Prolonged QT/QTc Assessment and Plan Acute aspiration pneumonia -CT CAP reports "1. Predominantly basilar airspace disease with debris/secretions in the bronchi concerning for pneumonia or pneumonitis, possibly secondary to aspiration. 2. No acute findings within the pelvis. 3. Thoracic and lumbar compression fractures that are favored chronic. Correlate clinically. If there is concern for an acute compression fracture or if acuity needs to be assessed, MRI could better discern." -Chest xray reports " Basilar airspace disease which could reflect pneumonia or pneumonitis. Reference same day CT." -CXR reports "Perihilar and retrocardiac opacities, stable, may suggest unresolved pneumonia." 05/30 -Merrem IV Changed to Rocephin and Flagyl 05/30 -Aspiration precaution -C-reactive protein 164 -Antiemetics- hold d/t QTc 500 -blood cultures-NGTD -Sputum culture- gram positive, culture pending -oxygen protocol, nebs -Speech therapy consulted for dysphagia, recommend Full liquid diet -Dr. Montejo consulted, EGD in the AM, NPO at midnight Elevated troponin Congestive heart failure CAD status post CABG Pacemaker present -Pacemaker interrogated 05/28 -BNP 3984 -Continue home medication -Troponin 50/73.8/76.8 -Cardiology consult, ECHO ordered Intractable nausea Hypokalemia Decreased PO intake Alcohol abuse -thiamine and folic acid daily -CIWA score 0 -Protonix IV twice daily -Carafate, reglan -Speech recommends FLD -hold zofran d/t QTc 500 -GI consult -She reports inability to tolerate IV and PO forms, Family able to encourage compliance DEZ -BUN/creatinine 40/1.35, GFR 38 -Gentle IVF -Merrem dose decreased Prolonged QT/QTc -QTc 450, 500 -hold Zofran DVT PPx Full code LOS 2 days Discharge Plan: Home Plan to discharge in: 48 Hours
[2024-05-31 04:57] LABS: Absolute Lymphocytes (CBC) 0.6 K/uL (0.7-4.9); Absolute Monocytes 0.3 K/uL (0.1-1.3); Absolute Neutrophil 3.7 K/uL (1.8-8.0); Basophils % 0.1 % (0-1.3); Eosinophils % 0.3 % (0-4.4); Hematocrit 36.7 % (36.0-45.0); Hemoglobin 11.8 g/dL (12.0-15.0); Lymphocytes % 13.4 % (15.3-44.8); MCH 29.2 pg (27.0-35.0); MCHC 32.2 g/dL (32.0-36.0); MCV 90.4 fL (80-100); MPV 7.9 fL (7.6-11.3); Monocytes % 6.3 % (3.3-12.3); Platelets 237 thou/uL (152-406); RBC Red Blood Cell Count 4.06 M/uL (3.86-4.86)
[2024-05-31 05:00] LABS: Neutrophils % 79.9 % (41.7-73.7)
[2024-05-31 05:05] LABS: Albumin 2.4 g/dL (3.4-5.0); Albumin/Globulin Ratio 0.6 (1.1-1.8); Anion Gap 11.3 mEq/L (5.0-15.0); Bilirubin Total 0.5 mg/dL (0.2-1.0); Globulin 4.3 g/dL (2.3-3.5); Magnesium 1.6 mg/dL (1.6-2.4); Phosphorus 1.7 mg/dL (2.5-4.9); Potassium 3.3 mEq/L (3.5-5.1); Protein, Total 6.7 g/dL (6.4-8.2)
[2024-05-31] MEDS: NA CHLORIDE 0.9% 250 ML ONE (05:53)
[2024-05-31] MEDS: KCL 20 MEQ/100 mL IVPB 20 MEQ/100 ML BAG IV SCH (06:07)
[2024-05-31] MEDS: Ringers Lactate 500 ML IV ONE (08:02)
[2024-05-31] MEDS ORDERED: propofoL 200 MG/20 ML VIAL IV ONE (08:31)
[2024-05-31] MEDS ORDERED: LIDOCAINE 1% MPF 5 ML VIAL ONE (08:31)
--- NOTE | 2024-05-31 10:21 | CON ---
Date of Consultation: 05/31/2024 Reason For Consultation: Dysphagia with nausea and vomiting. 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 Patient presented to hospital with intractable nausea and vomiting. It appears to be a recent up per respiratory infection, possibly pneumonia and with dehydration. The patient also reports dysphag ia to solids for years, unable to keep food down. Patient states she has not had any real meaningful food over the past 3 to 5 days and on admission she was noted to be dehydrated. She has been resusc itated with IV fluids. Patient reports dry heaves with severe nausea and vomiting for 3 days, feelin g bad and called EMS. She also has some postnasal drip and coughing. It is unclear if they checked her for COVID or flu on admission. Past Medical History: Significant for hypertension, hyperlipidemia, coronary artery disease, status post 3 vessel CABG, tobacco abuse in the past, congestive heart failure, COPD. The patient has had b owel surgery with colostomy reversal in 2007 for unclear reasons. She is status post cardiac stents in the past. Allergies: TO CODEINE, PENICILLIN, TETANUS VACCINE. Medications: Include Plavix, Lipitor, vitamin B12, Colace, Pepcid, Lasix, , metoprolol, Si ngulair, potassium chloride, and Klonopin. Review of Systems: The patient has dysphagia to solids for years, nausea, vomiting. She has shortness of breath. She h as nausea and vomiting, but no hematemesis, coffee-grounds emesis, melena, hematochezia, hematuria, d ysuria, polydipsia, hemoptysis, epistaxis. She does have some muscle aches, joint aches and backache s with chronic pain and some degenerative joint disease on the imaging studies in the emergency room. anxiety, decreased mood, somewhat lethargic. Physical Examination: Vital Signs: She is 4 feet 10 inches, 128 pounds. BMI 26.8 kg/m2. She has a temperature of 97.3 de grees Fahrenheit, pulse rate 83 to 100, respirations 20 to 24, blood pressure 107/21, O2 saturation 9 0 to 96 percent on room air. General: She is an elderly female, lying in bed, somewhat lethargic, easily falls asleep. HEENT: Normocephalic, atraumatic. Anicteric. Pupils equal, round, and reactive to light. Extraocu lar movements are intact. Oropharynx clear. Neck: Supple. No masses. Respirations: Decreased breath sounds. Occasional rales at the bases. Abdomen: Positive bowel sounds. Soft, nontender, nondistended. No hepatosplenomegaly. Extremities: No clubbing. No significant edema. There is some slight clubbing. No cyanosis. Neuro: Alert and oriented x3, though somewhat sluggish and somnolent. Able to move all extremities well. Laboratory Data: The patient has a white blood cell count of 4.7, hemoglobin of 11.8, hematocrit 36. 7, MCV of 90, platelet count of 237, polys of 80%, lymphocytes 13%, monocytes 6%. The patient has a sodium 135, potassium 3.3, chloride 94, bicarb 33, BUN of 25, creatinine of 0.7, glucose 122, calcium of 8.6, phosphorus 1.7, magnesium 1.6, total bilirubin 0.5, AST of 33, ALT of 19, alkaline phosphata se 62, total protein 6.7, albumin 2.4, before that albumin was 1.9. Troponin I earlier was 76.8 and 73.8, those are elevated. B-type natriuretic peptide elevated at 3984. C-reactive protein elevated at 164. Lipase was normal at 17. Cholesterol 160, LDL 46, triglycerides 53, HDL of 103. TSH of 1.0 4, free T4 1.15. UA with 2+ blood, otherwise negative. CT chest, abdomen and pelvis reveals finding s possibly considered consistent with pneumonia, pneumonitis, or possible aspiration with airspace di sease and debris in the bronchi and then she had thoracic and lumbar compression fractures, that are probably chronic. Lung consolidation that is milder in the right lower lobe to a lesser extent in th e left lung base as well. Impression: 1.Dysphagia to solids over many years. Continues now with decreased p.o. intake, probably from a vi ral or bacterial or pulmonary infection. 2.Nausea, vomiting, probably related to pulmonary infection, is improving since admission. 3.Possible pneumonia. 4.Dehydration on admission, improved with IV resuscitation. 5.History of hypertension, hyperlipidemia, coronary artery disease, status post 3 vessel coronary ar tammy bypass graft, congestive heart failure, chronic obstructive pulmonary disease, possible colon briggs rgery with colostomy reversal in the past as well. Recommendation: 1.Continue IV fluids and IV resuscitation. 2.Keep patient n.p.o. 3.Proceed with urgent EGD. 4.Continue p.r.n. antiemetics. TORRIE/MARIAN Voice ID: [id number] Report ID: [id number]
--- NOTE | 2024-05-31 11:10 | ECHO ---
HEIGHT: 4 ft 10 in WEIGHT: 128 lb 0 oz DATE OF STUDY: 05/30/[address]: Pau Broderick NP 2-DIMENSIONAL: YES M.MODE: YES DOPPLER: YES COLOR FLOW: YES TDS: NO PORTABLE: YES DEFINITY: NO BUBBLE STUDY: NO DIAGNOSIS: ELEVATED TROPONIN, ELEVATED BNP CARDIAC HISTORY: CATHERIZATION:YES SURGERY: YES PROSTHETIC VALVE: NO PACEMAKER: YES MEASUREMENTS (cm) DIASTOLIC (NORMALS) SYSTOLIC (NORMALS) IVSd 0.9 (0.6-1.2) LA Diam 2.6 (1.9-4.0) LVEF 50% LVIDd 2.5 (3.5-5.7) LVIDs 2.2 (2.0-3.5) %FS 13% LVPWd 0.9 (0.6-1.2) Ao Diam 1.8 (2.0-3.7) 2 DIMENSIONAL ASSESSMENT: RIGHT ATRIUM: NORMAL LEFT ATRIUM: NORMAL RIGHT VENTRICLE: NORMAL LEFT VENTRICLE: NORMAL TRICUSPID VALVE: MILD TRICUSPID REGURGITATION MITRAL VALVE: MILD MITRAL REGURGITATION PULMONIC VALVE: NORMAL AORTIC VALVE: NORMAL PERICARDIAL EFFUSION: NONE AORTIC ROOT: NORMAL LEFT VENTRICULAR WALL MOTION: NORMAL. DOPPLER/COLOR FLOW: NORMAL. COMMENTS: 1. LOW NORMAL LEFT VENTRICULAR SYSTOLIC FUNCTION. LEFT VENTRICULAR EJECTION FRACTION 50%. NORMAL WALL MOTION. 2. NORMAL DIASTOLIC FUNCTION. 3. NORMAL FILLING PRESSURES. 4. MILD PULMONARY HYPERTENSION. RIGHT VENTRICULAR SYSTOLIC PRESSURE 40-45 mmHg. TECHNOLOGIST: MARJORIE HERNANDEZ
--- NOTE | 2024-05-31 13:01 | P.PN ---
Date of Service: 05/31/24 Subjective Awake in recliner C/O dyspnea States nausea/vomiting improving ROS 10 point ROS as noted above, otherwise negative Physical Exam General: AAO x3, Other (uncomfortable) HEENT: Atraumatic, Normocephalic, PERRLA Neck: Supple, 2+ carotid pulse no bruit Respiratory: Normal air movement, Clear BBS, on 4 LNC Cardiovascular: Normal pulses, Normal S1 S2, Other (pacermaker), Irregular heart rate/rhythm Capillary refill: <2 Seconds Gastrointestinal: Normal bowel sounds, Soft on palpation, Nondistended Musculoskeletal: No clubbing Integumentary: No rashes Neurological: Normal speech, Normal tone Vitals Reviewed Problem list Acute aspiration pneumonia Esophageal stenosis S/P dilation Gastritis Elevated troponin Congestive heart failure CAD status post CABG Intractable nausea Hypokalemia Decreased PO intake Alcohol abuse Prolonged QT/QTc Plan Acute aspiration pneumonia Esophageal stenosis S/P dilation Gastritis -Merrem IV Changed to Rocephin and Flagyl 05/30 -Aspiration precaution -C-reactive protein 164 -blood cultures-NGTD -Sputum culture- gram positive, culture pending -oxygen protocol, nebs PRN -Speech therapy consulted for dysphagia, recommend Full liquid diet -Dr. Montejo consulted-EGD showed esophageal stenosis, gastritis -Dilation performed,on PPI Elevated troponin Congestive heart failure CAD status post CABG Pacemaker present -Pacemaker interrogated 05/28 -Continue home medication -Troponin 50/73.8/76.8 -Cardiology consult, ECHO ordered Intractable nausea Hypokalemia Decreased PO intake Alcohol abuse -thiamine and folic acid daily -CIWA score 0 -Protonix IV twice daily -Carafate, reglan -Speech recommends FLD -hold zofran d/t QTc 500 -GI consult -She reports inability to tolerate IV and PO forms, Family able to encourage compliance DEZ -Gentle IVF -Chemistry daily Prolonged QT/QTc -QTc 450, 500 -hold Zofran DVT PPx-lovenox Full code LOS 2 days
--- NOTE | 2024-05-31 15:21 | P.CNS ---
Date of Consult: 05/31/24 Reason for Consult: Respiratory distress Chief Complaint: Intractable nausea vomiting History of Present Illness: Patient is 88 years of age appear to be in significant distress has a history of coronary artery disease according to the H&P she was admitted with nausea dry heaves has been complaining of persistent dyspnea for the past week denies any fever and chills abnormal CAT scan bilateral pulmonary infiltrates and also had a non-STEMI is not done any better since admission Allergies codeine [Codeine] Allergy (Verified 11/05/19 05:19) Nausea/Vomiting Penicillins Allergy (Verified 11/05/19 05:19) Nausea/Vomiting Tetanus Vaccines and Toxoid [Tetanus Vaccines & Toxoid] Allergy (Verified 11/05/19 05:19) Anaphylaxis Home Medications: Clopidogrel Bisulfate [Plavix*] 75 mg PO DAILY 08/06/14 Atorvastatin Calcium [Lipitor] 80 mg PO BEDTIME 11/05/19 Cyanocobalamin (Vitamin B-12) [Vitamin B-12] 1,000 mcg PO DAILY 05/27/24 Docusate [Colace Cap] 100 mg PO PRN 05/27/24 Famotidine 20 mg PO BID 05/27/24 Furosemide [Lasix] 20 mg PO DAILY 05/27/24 Hyoscyamine Sulfate 0.125 mg SL QID 05/27/24 Metoprolol Succinate [Toprol Xl] 25 mg PO ONCE 05/27/24 Montelukast [Singulair] 10 mg PO DAILY 05/27/24 Potassium Chloride 10 meq PO DAILY 05/27/24 clonazePAM [Klonopin] 0.5 mg PO DAILYPRN PRN 05/27/24 - Past Medical/Surgical History Diabetic: No -: heart stents x3 -: hypertensive -: esophageal stenosis -: bowel surgery -: colostomy reversal 2007 - Social History Smoking Status: Former smoker Alcohol use: No CD- Drugs: No Caffeine use: Yes Place of Residence: Home Review of Systems 10-point ROS is otherwise unremarkable General: Weakness Respiratory: Shortness of Breath Physical Examination Temp Pulse Resp BP Pulse Ox 97.8 F 106 H 22 H 136/83 92 05/31/24 12:00 05/31/24 12:00 05/31/24 12:00 05/31/24 12:00 05/31/24 12:00 General: Alert, Moderate distress Neck: Supple Respiratory: Clear to auscultation bilaterally, Diminished Cardiovascular: No edema, Regular rate/rhythm, Normal S1 S2 Gastrointestinal: Normal bowel sounds, Soft and benign Musculoskeletal: No clubbing, No swelling - Problems (1) Pneumonia Current Visit: Yes Status: Acute Plan: Patient is 88 years of age admitted with worsening dyspnea and nausea for the past week has not improved she has bilateral pulmonary infiltrates cardiomegaly admitted with electrolyte imbalance hypokalemia hyponatremia elevated creatinine which is all improved patient's BNP was also elevated cultures are negative so far cardiogram is grossly normal pulmonary hypertension so far all cultures are negative I have added spironolactone and Lasix for now 2/2 IV levofloxacin Qualifiers: Pneumonia type: due to unspecified organism
[2024-05-31] MEDS: FUROSEMIDE 40 MG/4 ML VIAL IV SCH (15:46)
[2024-05-31] MEDS: Levofloxacin 750mg IV 750 MG/150 ML BAG IV SCH (15:47)
[2024-05-31] MEDS: SPIRONOLACTONE 25 MG TABLET PO SCH (15:48)
[2024-05-31] MEDS: LORazepam 2 MG/ML VIAL IV ONE (17:50)
[2024-06-01 05:58] LABS: Absolute Lymphocytes (CBC) 0.9 K/uL (0.7-4.9); Absolute Monocytes 0.5 K/uL (0.1-1.3); Absolute Neutrophil 3.2 K/uL (1.8-8.0); Basophils % 0.2 % (0-1.3); Eosinophils % 0.2 % (0-4.4); Hematocrit 36.1 % (36.0-45.0); Hemoglobin 12.3 g/dL (12.0-15.0); Lymphocytes % 20.3 % (15.3-44.8); MCV 88.1 fL (80-100); MPV 7.5 fL (7.6-11.3); Neutrophils % 68.3 % (41.7-73.7); Nucleated Red Blood Cells % 0.1 % (0-0); Platelets 254 thou/uL (152-406); Red Cell Distribution Width 13.8 % (12.1-15.2)
[2024-06-01 06:14] LABS: Albumin 2.3 g/dL (3.4-5.0); Albumin/Globulin Ratio 0.5 (1.1-1.8); Anion Gap 12.2 mEq/L (5.0-15.0); Bilirubin Total 0.4 mg/dL (0.2-1.0); Globulin 4.4 g/dL (2.3-3.5); Magnesium 1.4 mg/dL (1.6-2.4); Phosphorus 2.1 mg/dL (2.5-4.9); Potassium 3.2 mEq/L (3.5-5.1); Protein, Total 6.7 g/dL (6.4-8.2)
[2024-06-01] MEDS: KCL 20 MEQ/100 mL IVPB 20 MEQ/100 ML BAG IV SCH (08:17)
[2024-06-01] MEDS: PANTOPRAZOLE 40MG TABLET PO SCH (08:39)
--- NOTE | 2024-06-01 08:46 | P.PN ---
Date of Service: 06/01/24 Subjective Awake and alert C/O dyspnea but feeling a little better than yesterday States nausea/vomiting improved S/P EGD yesterday ROS 10 point ROS as noted above, otherwise negative Physical Exam General: AAO x3, Other (uncomfortable) HEENT: Atraumatic, Normocephalic, PERRLA Neck: Supple, 2+ carotid pulse no bruit Respiratory: Normal air movement, Clear BBS, on 4 LNC Cardiovascular: Normal pulses, Normal S1 S2, Other (pacermaker), Irregular heart rate/rhythm Capillary refill: <2 Seconds Gastrointestinal: Normal bowel sounds, Soft on palpation, Nondistended Musculoskeletal: No clubbing Integumentary: No rashes Neurological: Normal speech, Normal tone Vitals Reviewed Problem list Acute aspiration pneumonia Esophageal stenosis S/P dilation Gastritis Elevated troponin Congestive heart failure CAD status post CABG Intractable nausea Hypokalemia Decreased PO intake Alcohol abuse Prolonged QT/QTc Plan Acute aspiration pneumonia Esophageal stenosis S/P dilation Gastritis -Merrem IV Changed to Rocephin and Flagyl 05/30 -Aspiration precaution -C-reactive protein 164 -blood cultures-NGTD -Sputum culture-Normal george -oxygen protocol, nebs PRN -Speech therapy consulted for dysphagia, recommend Full liquid diet -Dr. Montejo consulted-EGD showed esophageal stenosis, gastritis -Dilation performed,on PPI -Speech to re-evaluate after esophageal dilation Elevated troponin Congestive heart failure CAD status post CABG Pacemaker present -Pacemaker interrogated 05/28 -Continue home medication -Troponin 50/73.8/76.8 -Cardiology consult, ECHO ordered Intractable nausea Hypokalemia Decreased PO intake Alcohol abuse -thiamine and folic acid daily -CIWA score 0 -Protonix IV twice daily -Carafate, reglan -Speech recommends FLD -hold zofran d/t QTc 500 -She reports inability to tolerate IV and PO forms, Family able to encourage compliance DEZ -Gentle IVF -Chemistry daily Prolonged QT/QTc -QTc 450, 500 -hold Zofran DVT PPx-lovenox Full code LOS 2 days
[2024-06-01] MEDS: POTASS/SODIUM PHOSPHATE 1 PKT POWD.PACK PO SCH (09:00)
[2024-06-01] MEDS: Magnesium Sulfate 2gm IVPB 2 G/50 ML BAG IV ONE (09:37)
[2024-06-01] MEDS: LORazepam 2 MG/ML VIAL IV PRN (10:29)
--- NOTE | 2024-06-01 13:34 | P.PN ---
Subjective Date of Service: 06/01/24 Chief Complaint: Resp distrewss Subjective: Worsening (Not doing well. Still dyspneic) Review of Systems is unable to be obtained Physical Examination - Vital Signs Temperature: 97.9 F Blood Pressure: 136/70 Pulse: 121 Respirations: 12 Pulse Ox (%): 89 - Physical Exam General: Unresponsive Respiratory: Clear to auscultation bilaterally, Diminished Cardiovascular: No edema, Regular rate/rhythm, Normal S1 S2 - Studies Medications List Reviewed: Yes Assessment And Plan - Current Problems (Diagnosis) (1) Pneumonia Current Visit: Yes Status: Acute Plan: Not doing well. Hx of Diastolic CHF, No Hx of COPD. LAbs reviewed. Add thiamine. CXRY no change ABG pending/ / Mild hypokalemia/ hypxoc.CT angio pending/ Tachycardic DC nebs/ trial of steroids and Thiamine Qualifiers: Pneumonia type: due to unspecified organism
--- NOTE | 2024-06-01 13:47 | RAD REPORT ---
EXAMINATION: ONE VIEW CHEST XR CLINICAL INDICATION: Female, 88 years old.,dyspnea, tachycardia TECHNIQUE: Frontal chest projection is submitted. Examination is limited by patient positioning and t echnique. COMPARISON: 05/29/2024 FINDINGS: Right arm peripherally inserted catheter unchanged in position with catheter tip terminating in the r ight axilla. Stable central interstitial prominence and stable retrocardiac opacity possibly with small effusion. No pneumothorax or right-sided effusion. The heart is normal in size. Mediastinal con tours are unchanged, with sequelae of CABG and left chest wall pacer. IMPRESSION: Stable findings, may relate to left basilar pneumonia. Stable central interstitial prominence in the background which may relate to a component of central congestion or edema.
[2024-06-01 14:22] LABS: Blood O2 Saturation 92.1 % (92-98.5)
[2024-06-01 14:23] LABS: Arterial Blood Carboxyhemoglob 0.8 % (0-1.5); Blood Gas Oxyhemoglobin 90.8 % (94-97)
[2024-06-01] MEDS: METHYLPREDNISOLONE 40 MG INJ IV SCH (14:34)
[2024-06-01] MEDS: THIAMINE 200 MG/2 ML INJ IVP SCH (14:36)
[2024-06-01] MEDS: ENOXAPARIN 40 MG/0.4 ML SQ SCH (14:37)
--- NOTE | 2024-06-01 15:06 | RAD REPORT ---
EXAM: CT Chest For Pe Angio TECHNIQUE: CT angiogram of the chest was performed following intravenous contrast administration, inc luding sagittal and coronal as well as maximum intensity projection reformats. One or more of the following dose reduction techniques were used: Automated exposure control, adjustment of the mA and k V according to patient size, and iterative reconstruction. Unless otherwise specified, incidental findings do not require dedicated imaging follow-up. INDICATION: [facility] MAIN dyspnea, tachycardia, hypoxia Y COMPARISON: Chest radiograph of earlier the same day. CT chest 05/27/2024. FINDINGS: LINES/TUBES: None. PULMONARY ARTERIES: Main pulmonary arteries are normal in caliber. No filling defects within the pul monary arteries to suggest pulmonary embolus. LUNGS AND AIRWAYS: Progressive patchy airspace opacities in the basal right lower lobe, and left uppe r to basal lower lobe segments, with air bronchograms. Patchy peripheral predominant groundglass opacities are also seen in the upper lobes more so on the right and the right middle lobe. PLEURA: No effusion or pneumothorax. HEART AND MEDIASTINUM: The visualized thyroid gland is normal. No mediastinal, hilar, or axillary lym phadenopathy. Heart is unremarkable. No pericardial effusion. SOFT TISSUES AND BONES: No acute osseous abnormality. No significant soft tissue finding. Stable superior endplate compression deformities at T5 and T6, favored to be chronic. UPPER ABDOMEN: Unremarkable. IMPRESSION: No evidence of acute central pulmonary emboli. Progressive patchy bilateral airspace opacities as above, may reflect worsening pneumonia.
[2024-06-01] MEDS: LORazepam 2 MG/ML VIAL IV ONE (15:55)
[2024-06-01] MEDS: Meropenem 1,000 MG in NA CHLORIDE 0.9% 100 ML IV SCH (16:33)
[2024-06-01] MEDS: DEXMEDETOMIDINE HCL 200 MCG in NA CHLORIDE 0.9% 98 ML IV SCH (21:54)
[2024-06-02] MEDS: NA CHLORIDE 0.9% 100 ML ONE (00:38)
[2024-06-02 05:25] LABS: Absolute Lymphocytes (CBC) 0.9 K/uL (0.7-4.9); Lymphocytes % 22.5 % (15.3-44.8)
[2024-06-02 05:28] LABS: Absolute Monocytes 0.2 K/uL (0.1-1.3); Absolute Neutrophil 2.9 K/uL (1.8-8.0); Basophils % 0.5 % (0-1.3); Eosinophils % 0.1 % (0-4.4); Hematocrit 39.6 % (36.0-45.0); Hemoglobin 12.8 g/dL (12.0-15.0); MCH 29.2 pg (27.0-35.0); MCHC 32.5 g/dL (32.0-36.0); MCV 90.1 fL (80-100); MPV 7.8 fL (7.6-11.3); Monocytes % 4.8 % (3.3-12.3); Neutrophils % 72.1 % (41.7-73.7); Nucleated Red Blood Cells % 0.2 % (0-0); Platelets 276 thou/uL (152-406); RBC Red Blood Cell Count 4.39 M/uL (3.86-4.86); Red Cell Distribution Width 14.1 % (12.1-15.2)
[2024-06-02 05:36] LABS: Anion Gap 12.6 mEq/L (5.0-15.0); Magnesium 1.9 mg/dL (1.6-2.4); Phosphorus 4.3 mg/dL (2.5-4.9); Potassium 3.6 mEq/L (3.5-5.1)
[2024-06-02] MEDS: KCL 20 MEQ/100 mL IVPB 20 MEQ/100 ML BAG IV SCH (06:22)
[2024-06-02 06:48] LABS: Atypical Lymphocytes 6 %; Band Neutrophils 8 % (0-1); Blood Morphology Comment NOTED (NOT SEEN); Differential Total Cells Count 100; Lymphocytes 11 % (15-42); Metamyelocytes 1 % (0-0); Monocytes 4 % (0-10); Platelet Estimate ADEQ; Reactive Lymphocytes 3 %; Segmented Neutrophils 67 % (40-80); Spherocyte 1+
[2024-06-02] MEDS: ENOXAPARIN 40 MG/0.4 ML SQ SCH (09:00)
--- NOTE | 2024-06-02 09:01 | RAD REPORT ---
EXAMINATION: ONE VIEW CHEST XR CLINICAL INDICATION: Female, 88 years old.,pneumonia TECHNIQUE: Frontal chest projection is submitted. Examination is limited by patient positioning and t echnique. COMPARISON: 06/01/2024 chest radiograph and CTA chest FINDINGS: Persistent left basilar/retrocardiac pleuroparenchymal opacity with some increased lucency which may relate to gastric fundal gas in the region of left hemidiaphragm elevation. Patchy right basilar airspace opacification is also stable. Right arm PICC tip now resides along the mid subclavian artery . No pneumothorax or progressive effusion. The heart is normal in size. Mediastinal contours are unchanged with sequelae of median sternotomy and left chest wall pacer placement. IMPRESSION: Essentially stable findings as above.
--- NOTE | 2024-06-02 09:37 | P.PN ---
Date of Service: 06/02/24 Subjective moved to ICU yesterday for work of breathing Very anxious, requiring precedex at low doses but tolerating well ROS 10 point ROS as noted above, otherwise negative Physical Exam General: AAO x3, Other (uncomfortable) HEENT: Atraumatic, Normocephalic, PERRLA Neck: Supple, 2+ carotid pulse no bruit Respiratory: Normal air movement, Clear BBS, on 4 LNC Cardiovascular: Normal pulses, Normal S1 S2, Other (pacermaker), Irregular heart rate/rhythm Capillary refill: <2 Seconds Gastrointestinal: Normal bowel sounds, Soft on palpation, Nondistended Musculoskeletal: No clubbing Integumentary: No rashes Neurological: Normal speech, Normal tone Vitals Reviewed Problem list Acute aspiration pneumonia Esophageal stenosis S/P dilation Gastritis Elevated troponin Congestive heart failure CAD status post CABG Intractable nausea Hypokalemia Decreased PO intake Alcohol abuse Prolonged QT/QTc Plan Acute aspiration pneumonia Esophageal stenosis S/P dilation Gastritis -Broadened back to merrem 06/01 given CTA showing worsening pneumonia -Aspiration precaution -C-reactive protein 164 -CTA negative for PE -ABG without acidosis/hypercapnia -Symptoms improved with precedex/ativan -blood cultures-NGTD -Sputum culture-Normal george -Speech therapy consulted for dysphagia, recommend Full liquid diet -Dr. Montejo consulted-EGD showed esophageal stenosis, gastritis -Dilation performed,on PPI -Speech to re-evaluate after esophageal dilation Elevated troponin Congestive heart failure CAD status post CABG Pacemaker present -Pacemaker interrogated 05/28 -Continue home medication -Troponin 50/73.8/76.8 -Cardiology consult, ECHO ordered Intractable nausea Hypokalemia Decreased PO intake Alcohol abuse -thiamine and folic acid daily -Protonix IV twice daily -Speech recommends FLD-pending repeat eval -hold zofran d/t QTc 500 -She reports inability to tolerate IV and PO forms, Family able to encourage compliance DEZ -Gentle IVF -Chemistry daily Prolonged QT/QTc -QTc 450, 500 -hold Zofran DVT PPx-lovenox Full code LOS 2 days
--- NOTE | 2024-06-02 10:21 | P.PN ---
Subjective Date of Service: 06/02/24 Chief Complaint: Progressive pneumonia Subjective: Improving (Is improving feeling a little better transferred to the ICU currently on a Precedex drip) Review of Systems General: Weakness Respiratory: Shortness of Breath Physical Examination - Vital Signs Temperature: 97.1 F Blood Pressure: 136/88 Pulse: 77 Respirations: 25 Pulse Ox (%): 94 - Physical Exam General: Alert, Delirious Neck: Supple Respiratory: Clear to auscultation bilaterally, Diminished - Studies Medications List Reviewed: Yes Assessment And Plan - Current Problems (Diagnosis) (1) Pneumonia Current Visit: Yes Status: Acute Plan: Patient has progressive pneumonia noted on the CT scan and chest x-ray with meropenem add p.o. doxycycline labs vital signs otherwise stable DC IV Lasix continue with spironolactone DC nebulizers labs reviewed changes are all negative see steroids Qualifiers: Pneumonia type: due to unspecified organism
[2024-06-02] MEDS: DOXYCYCLINE 100 MG CAP PO SCH (10:30)
[2024-06-02] MEDS: DOXYCYCLINE 100 MG in NA CHLORIDE 0.9% 100 ML IVPB ONE (12:34)
[2024-06-02] MEDS ORDERED: Oxycodone HCl/Acetaminophen 5/325 MG TAB PO PRN (13:04)
--- NOTE | 2024-06-02 15:46 | P.PN ---
Subjective Date of Service: 06/02/24 Chief Complaint: Dysphagia, N/V, progressive pneumonia Subjective: New changes (Transferred to ICU on Precedex. Dysphagia improved s/p EGD with dilatation, stating she can swallow and tolerating CLs. Speech therapy to evaluate with history of possible aspiration.) Review of Systems 10-point ROS is otherwise unremarkable General: Weakness (Improved.) Neurological: Weakness (Improved.) Physical Examination - Vital Signs Temperature: 96.9 F Blood Pressure: 139/79 Pulse: 82 Respirations: 21 Pulse Ox (%): 100 - Physical Exam General: Alert, In no apparent distress, Oriented x3, Cooperative HEENT: Atraumatic, Normocephalic, PERRLA, EOMI Neck: Supple Respiratory: Diminished Cardiovascular: Normal pulses Gastrointestinal: Soft and benign, No tenderness, No rebound, No guarding Neurological: Normal speech - Studies Medications List Reviewed: Yes Assessment And Plan - Current Problems (Diagnosis) (1) Dysphagia Current Visit: Yes Status: Acute Comment: Improved. (2) Nausea & vomiting Current Visit: Yes Status: Acute Comment: Resolved. (3) Pneumonia Current Visit: Yes Status: Acute Qualifiers: Pneumonia type: due to unspecified organism (4) SOB (shortness of breath) Current Visit: Yes Status: Acute (5) Coronary artery disease Current Visit: No Status: Acute - Plan REC: 1) speech pathology to evaluate swallowing before advancing diet 2) continue IV antibiotics
[2024-06-02] MEDS: DOXYCYCLINE 100 MG in NA CHLORIDE 0.9% 100 ML IVPB SCH (20:07)
[2024-06-02] MEDS: ENSURE ENLIVE 237 ML CAN PO SCH (20:10)
[2024-06-02] MEDS: JUVEN PACKET PO SCH (20:10)
--- NOTE | 2024-06-03 06:45 | RAD REPORT ---
EXAM: Chest Single View HISTORY: pneumonia COMPARISON: 06/02/2024 FINDINGS: LUNGS/PLEURA: Multifocal airspace disease though probably within the left greater than right lung bas e. MEDIASTINUM: The mediastinal silhouette is within normal limits. CARDIAC: Cardiomegaly. UPPER ABDOMEN: No significant abnormality. BONES: No acute fracture. LINES/TUBES/OTHER: Pacemaker IMPRESSION: Multifocal airspace disease without significant interval change consistent with pneumonia.
[2024-06-03 07:58] LABS: Absolute Lymphocytes (CBC) 1.5 K/uL (0.7-4.9); Absolute Monocytes 0.6 K/uL (0.1-1.3); Absolute Neutrophil 5.5 K/uL (1.8-8.0); Basophils % 0.3 % (0-1.3); Eosinophils % 0.2 % (0-4.4); Hematocrit 39.3 % (36.0-45.0); Hemoglobin 12.6 g/dL (12.0-15.0); Lymphocytes % 19.2 % (15.3-44.8); MCH 29.2 pg (27.0-35.0); MCHC 32.2 g/dL (32.0-36.0); MCV 90.5 fL (80-100); MPV 8.2 fL (7.6-11.3); Monocytes % 8.1 % (3.3-12.3); Neutrophils % 72.2 % (41.7-73.7); Platelets 319 thou/uL (152-406); RBC Red Blood Cell Count 4.34 M/uL (3.86-4.86); Red Cell Distribution Width 14.1 % (12.1-15.2)
[2024-06-03 08:22] LABS: Anion Gap 9.3 mEq/L (5.0-15.0); Magnesium 1.7 mg/dL (1.6-2.4); Phosphorus 2.5 mg/dL (2.5-4.9); Potassium 3.3 mEq/L (3.5-5.1)
[2024-06-03] MEDS: POTASSIUM CL SA 10 MEQ TAB PO ONE (09:12)
[2024-06-03] MEDS: POTASSIUM PHOS IN 0.9 % NACL 15 MMOL/250 ML BAG IV ONE (09:12)
[2024-06-03] MEDS: MAGNESIUM SULFATE 1 gm IVPB 1 GM/100 ML BAG IV ONE (09:12)
--- NOTE | 2024-06-03 13:59 | P.PN ---
Date of Service: 06/03/24 Subjective Confused but slowly improving Requiring Precedex for anxiety/agitation Respiratory status improved Continue antibiotics ROS 10 point ROS as noted above, otherwise negative Physical Exam General: AAO x3, Other (uncomfortable) HEENT: Atraumatic, Normocephalic, PERRLA Neck: Supple, 2+ carotid pulse no bruit Respiratory: Normal air movement, Clear BBS, on 4 LNC Cardiovascular: Normal pulses, Normal S1 S2, Other (pacermaker), Irregular heart rate/rhythm Capillary refill: <2 Seconds Gastrointestinal: Normal bowel sounds, Soft on palpation, Nondistended Musculoskeletal: No clubbing Integumentary: No rashes Neurological: Normal speech, Normal tone Vitals Reviewed Problem list Acute aspiration pneumonia Esophageal stenosis S/P dilation Gastritis Elevated troponin Congestive heart failure CAD status post CABG Intractable nausea Hypokalemia Decreased PO intake Alcohol abuse Prolonged QT/QTc Plan Acute aspiration pneumonia Esophageal stenosis S/P dilation Gastritis -Broadened back to merrem 06/01 given CTA showing worsening pneumonia -CTA negative for PE -ABG without acidosis/hypercapnia -Symptoms improved with precedex/ativan -blood cultures-NGTD -Sputum culture-Normal george -Speech therapy consulted for dysphagia, recommend Full liquid diet -Dr. Montejo consulted-EGD showed esophageal stenosis, gastritis -Dilation performed,on PPI Elevated troponin Congestive heart failure CAD status post CABG Pacemaker present -Pacemaker interrogated 05/28 -Continue home medication -Troponin 50/73.8/76.8 -Cardiology consult, ECHO ordered Intractable nausea Hypokalemia Decreased PO intake Alcohol abuse -thiamine and folic acid daily -Protonix IV twice daily -Speech recommends FLD-pending repeat eval -hold zofran d/t QTc 500 -She reports inability to tolerate IV and PO forms, Family able to encourage compliance DEZ -Gentle IVF -Chemistry daily Prolonged QT/QTc -QTc 450, 500 -hold Zofran DVT PPx-lovenox Full code LOS 2 days
[2024-06-03] MEDS: DEXMEDETOMIDINE HCL 1,000 MCG in NA CHLORIDE 0.9% 490 ML IV SCH (14:52)
[2024-06-03] MEDS: ALBUTEROL 2.5 MG/3 ML NEB SOL NEB PRN (23:17)
[2024-06-03] MEDS: IPRATROPIUM BROM 0.5MG/2.5ML NEB PRN (23:17)
[2024-06-04 05:41] LABS: Absolute Lymphocytes (CBC) 1.2 K/uL (0.7-4.9); Absolute Monocytes 0.4 K/uL (0.1-1.3); Absolute Neutrophil 7.9 K/uL (1.8-8.0); Basophils % 0.1 % (0-1.3); Eosinophils % 0.1 % (0-4.4); Hemoglobin 12.3 g/dL (12.0-15.0); Lymphocytes % 12.8 % (15.3-44.8); MCH 29.1 pg (27.0-35.0); MCHC 32.5 g/dL (32.0-36.0); MCV 89.5 fL (80-100); MPV 7.9 fL (7.6-11.3); Monocytes % 4.2 % (3.3-12.3); Neutrophils % 82.8 % (41.7-73.7); Platelets 312 thou/uL (152-406); RBC Red Blood Cell Count 4.25 M/uL (3.86-4.86); Red Cell Distribution Width 13.8 % (12.1-15.2)
[2024-06-04 05:51] LABS: Anion Gap 9.3 mEq/L (5.0-15.0); Magnesium 1.7 mg/dL (1.6-2.4); Phosphorus 2.8 mg/dL (2.5-4.9); Potassium 3.3 mEq/L (3.5-5.1)
[2024-06-04] MEDS: MAGNESIUM SULFATE 1 gm IVPB 1 GM/100 ML BAG IV ONE (06:03)
[2024-06-04] MEDS: KCL 20 MEQ/100 mL IVPB 20 MEQ/100 ML BAG IV SCH (06:34)
[2024-06-04] MEDS: clonazePAM 1 MG TAB PO ONE (09:42)
--- NOTE | 2024-06-04 09:56 | P.PN ---
Date of Service: 06/04/24 Subjective Confused but slowly improving Requiring Precedex for anxiety/agitation Trying to wean precedex Starting scheduled po clonazepam Respiratory status improved Continue antibiotics ROS 10 point ROS as noted above, otherwise negative Physical Exam General: AAO x3, Other (uncomfortable) HEENT: Atraumatic, Normocephalic, PERRLA Neck: Supple, 2+ carotid pulse no bruit Respiratory: Normal air movement, Clear BBS, on 4 LNC Cardiovascular: Normal pulses, Normal S1 S2, Other (pacermaker), Irregular heart rate/rhythm Capillary refill: <2 Seconds Gastrointestinal: Normal bowel sounds, Soft on palpation, Nondistended Musculoskeletal: No clubbing Integumentary: No rashes Neurological: Normal speech, Normal tone Vitals Reviewed Problem list Acute aspiration pneumonia Esophageal stenosis S/P dilation Gastritis Anxiety/Agitation/metabolic encephalopathy Elevated troponin Congestive heart failure CAD status post CABG Intractable nausea Hypokalemia Decreased PO intake Alcohol abuse Prolonged QT/QTc Plan Acute aspiration pneumonia Esophageal stenosis S/P dilation Gastritis -Broadened back to merrem 06/01 given CTA showing worsening pneumonia -CTA negative for PE -ABG without acidosis/hypercapnia -Symptoms improved with precedex/ativan -blood cultures-NGTD -Sputum culture-Normal egorge -Speech therapy consulted for dysphagia, recommend Full liquid diet -Dr. Montejo consulted-EGD showed esophageal stenosis, gastritis -Dilation performed,on PPI Anxiety/Agitation/metabolic encephalopathy Patient was having increased anxiety, tachypnea Was moved to ICU, started on Precedex drip Symptoms improved/under control when on Precedex Becomes easily anxious/agitated and tachypneic Attempting to wean Precedex, trying scheduled Klonopin Elevated troponin Congestive heart failure CAD status post CABG Pacemaker present -Pacemaker interrogated 05/28 -Continue home medication -Troponin 50/73.8/76.8 -Cardiology consult, ECHO ordered Intractable nausea Hypokalemia Decreased PO intake Alcohol abuse -thiamine and folic acid daily -Protonix IV twice daily -Speech/GI recommends FLD -hold zofran d/t QTc 500 -She reports inability to tolerate IV and PO forms, Family able to encourage compliance DEZ -Gentle IVF -Chemistry daily Prolonged QT/QTc -QTc 450, 500 -hold Zofran DVT PPx-lovenox Full code LOS 2 days
--- NOTE | 2024-06-04 10:29 | P.PN ---
Subjective Date of Service: 06/04/24 Chief Complaint: Pneumonia Subjective: Improving (Patient is improving still complains of anxiety daughter at the bedside) Review of Systems Unremarkable General: Weakness Respiratory: Shortness of Breath Physical Examination - Vital Signs Temperature: 96.8 F Blood Pressure: 130/86 Pulse: 92 Respirations: 27 Pulse Ox (%): 100 - Physical Exam General: Alert, In no apparent distress, Oriented x3 Respiratory: Clear to auscultation bilaterally Cardiovascular: No edema, Regular rate/rhythm, Normal S1 S2 - Studies Medications List Reviewed: Yes Assessment And Plan - Current Problems (Diagnosis) (1) Pneumonia Current Visit: Yes Status: Acute Plan: Patient admitted with pneumonia has a normal white count cultures are all negative vital signs all stable significant amount of anxiety is at her baseline labs chemistries all reviewed white count is normal changed to p.o. levofloxacin stable to be transferred to the floor Qualifiers: Pneumonia type: due to unspecified organism
[2024-06-04] MEDS: clonazePAM 0.5 MG TAB PO ONE (17:42)
[2024-06-04] MEDS: clonazePAM 0.5 MG TAB PO SCH (21:00)
[2024-06-04] MEDS ORDERED: clonazePAM 0.5 MG TAB PO SCH (21:00)
[2024-06-05 06:03] LABS: Absolute Eosinophils 0.1 K/uL (0-0.5); Absolute Lymphocytes (CBC) 1.8 K/uL (0.7-4.9); Absolute Monocytes 0.5 K/uL (0.1-1.3); Absolute Neutrophil 5.8 K/uL (1.8-8.0); Basophils % 0.2 % (0-1.3); Eosinophils % 0.7 % (0-4.4); Hematocrit 40.7 % (36.0-45.0); Lymphocytes % 21.4 % (15.3-44.8); MCH 28.8 pg (27.0-35.0); MCHC 32.1 g/dL (32.0-36.0); MCV 89.9 fL (80-100); MPV 7.9 fL (7.6-11.3); Monocytes % 6.5 % (3.3-12.3); Neutrophils % 71.2 % (41.7-73.7); Platelets 314 thou/uL (152-406); RBC Red Blood Cell Count 4.52 M/uL (3.86-4.86); Red Cell Distribution Width 14.2 % (12.1-15.2)
[2024-06-05 06:05] LABS: Anion Gap 9.8 mEq/L (5.0-15.0); Magnesium 1.7 mg/dL (1.6-2.4); Potassium 3.8 mEq/L (3.5-5.1)
[2024-06-05] MEDS: MAGNESIUM SULFATE 1 gm IVPB 1 GM/100 ML BAG IV ONE (06:32)
[2024-06-05] MEDS: KCL 20 MEQ/100 mL IVPB 20 MEQ/100 ML BAG IV SCH (06:32)
[2024-06-05] MEDS: levoFLOXacin 250 MG TAB PO SCH (08:10)
--- NOTE | 2024-06-05 10:26 | P.PN ---
Date of Service: 06/05/24 Subjective Confused but slowly improving Requiring Precedex for anxiety/agitation Trying to wean precedex Titrating PO anxiolytics Respiratory status improved Continue antibiotics ROS 10 point ROS as noted above, otherwise negative Physical Exam General: AAO x3, Other (uncomfortable) HEENT: Atraumatic, Normocephalic, PERRLA Neck: Supple, 2+ carotid pulse no bruit Respiratory: Normal air movement, Clear BBS, on 4 LNC Cardiovascular: Normal pulses, Normal S1 S2, Other (pacermaker), Irregular heart rate/rhythm Capillary refill: <2 Seconds Gastrointestinal: Normal bowel sounds, Soft on palpation, Nondistended Musculoskeletal: No clubbing Integumentary: No rashes Neurological: Normal speech, Normal tone Vitals Reviewed Problem list Acute aspiration pneumonia Esophageal stenosis S/P dilation Gastritis Anxiety/Agitation/metabolic encephalopathy Elevated troponin Congestive heart failure CAD status post CABG Intractable nausea Hypokalemia Decreased PO intake Alcohol abuse Prolonged QT/QTc Plan Acute aspiration pneumonia Esophageal stenosis S/P dilation Gastritis -Broadened back to merrem 06/01 given CTA showing worsening pneumonia -CTA negative for PE -ABG without acidosis/hypercapnia -Symptoms improved with precedex/ativan -blood cultures-NGTD -Sputum culture-Normal george -Speech therapy consulted for dysphagia, recommend Full liquid diet - Nikia consulted-EGD showed esophageal stenosis, gastritis -Dilation performed,on PPI-okay for full liquids for now Anxiety/Agitation/metabolic encephalopathy Patient was having increased anxiety, tachypnea Was moved to ICU, started on Precedex drip Symptoms improved/under control when on Precedex Becomes easily anxious/agitated and tachypneic Attempting to wean Precedex, trying scheduled Klonopin Titrated Klonopin to 3 times daily Consider psychiatry consult when available to further help with medication adjustments for anxiety Anxiety seems to be significantly contributing to patient's symptoms When calm respiratory status is fine, when weaned off Precedex she becomes agitated and tachypneic Elevated troponin Congestive heart failure CAD status post CABG Pacemaker present -Pacemaker interrogated 05/28 -Continue home medication -Troponin 50/73.8/76.8 -Cardiology consult -Echo shows low normal LVEF 50%, normal diastolic function, normal filling pressures, mild pulmonary hypertension Intractable nausea Hypokalemia Decreased PO intake Alcohol abuse -thiamine and folic acid daily -Protonix IV twice daily -Speech/GI recommends FLD -hold zofran d/t QTc 500 -She reports inability to tolerate IV and PO forms, Family able to encourage compliance DEZ -Gentle IVF -Chemistry daily Prolonged QT/QTc -QTc 450, 500 -hold Zofran DVT PPx-lovenox Full code LOS 2 days-plan to get inpatient rehab when weaned off Precedex
--- NOTE | 2024-06-05 12:10 | P.PN ---
Subjective Date of Service: 06/05/24 Chief Complaint: Pneumonia Subjective: Improving (Patient is doing better still continues to have an anxiety is a major problem eating and drinking) Review of Systems General: Weakness Respiratory: Shortness of Breath Physical Examination - Vital Signs Temperature: 96.9 F Blood Pressure: 115/83 Pulse: 77 Respirations: 25 Pulse Ox (%): 100 - Physical Exam General: Alert, In no apparent distress, Oriented x3 Respiratory: Clear to auscultation bilaterally, Diminished Cardiovascular: No edema, Regular rate/rhythm, Normal S1 S2 - Studies Medications List Reviewed: Yes Assessment And Plan - Current Problems (Diagnosis) (1) Pneumonia Current Visit: Yes Status: Acute Plan: Patient admitted with pneumonia she is clinically improving white count is normal vital signs are stable oxygenation satisfactory has underlying severe anxiety has refused SSRIs before.'s are all negative tolerating p.o. medication changed to p.o. thiamine 200 mg daily decrease the dose of spironolactone to once a day Qualifiers: Pneumonia type: due to unspecified organism
[2024-06-05] MEDS: LORazepam 2 MG/ML VIAL IV ONE (13:02)
[2024-06-05 16:10] LABS: Blood Gas Oxyhemoglobin 95.1 % (94-97)
[2024-06-05 16:11] LABS: Arterial Blood Carboxyhemoglob 0.8 % (0-1.5)
--- NOTE | 2024-06-05 21:16 | RAD REPORT ---
EXAM: CT Head Brain Wo Cont HISTORY: AMS COMPARISON: None TECHNIQUE: Multiple contiguous axial images were obtained for a CT of the brain without contrast. Sag ittal and coronal reformats were performed. One or more of the following dose reduction techniques were used: Automated exposure control, adjus tment of the mA and kV according to patient size, and iterative reconstruction. Unless otherwise specified, incidental findings do not require dedicated imaging follow-up. FINDINGS: No evidence of hydrocephalus, intracranial hemorrhage, or extra-axial fluid collection. Mild brain atrophy with mild periventricular and deep white matter chronic microvascular ischemic ch anges present. The calvarium is intact. The visualized paranasal sinuses and mastoid air cells are essentially clear . IMPRESSION: No evidence of acute intracranial abnormality.
--- NOTE | 2024-06-05 21:33 | RAD REPORT ---
EXAMINATION: CT Thorax Wo Con CLINICAL INDICATION: Female, 88 years old. [facility] MAIN Worsening tachypnea, work of breathing Y TECHNIQUE: Axial CT scan of the chest without intravenous contrast. Multiplanar reformats were genera kenneth and reviewed. One or more of the following dose reduction techniques were used: Automated exposure control, adjustment of the mA and/or kV according patient size, and/or iterative reconstruct ion. Unless otherwise specified, incidental findings do not require dedicated imaging follow-up. COMPARISON: 06/01/2024 CT chest FINDINGS: LOWER NECK: Visualized thyroid gland and soft tissues are normal. LUNGS: Patchy airspace opacities, with partial improvement of aeration in the peripheral upper to mid left lower lobe, and partial improvement of scattered small airspace opacities in the mid aspect right lower lobe. The extent of the consolidative and groundglass opacities in otherwise stable. No e vidence of airspace or interstitial process. No worrisome nodules. PLEURA: Trace left pleural effusion, stable. No pneumothorax. . MEDIASTINUM AND LYMPH NODES: Left chest wall pacer/AICD in place. No significant cardiomegaly. Sequel ae of CABG. No mediastinal mass or fluid collection. Normal size mediastinal, hilar, and axillary lymph nodes. OSSEOUS STRUCTURES AND CHEST WALL: Stable multilevel superior endplate compression deformities. No ot her acute or suspicious osseous abnormality.. UPPER ABDOMEN: No significant abnormalities. IMPRESSION: Partial improvement of airspace opacities suggestive of pneumonia in the bilateral lower lobes as abo ve. Otherwise stable findings.
[2024-06-06 06:23] LABS: Absolute Eosinophils 0.1 K/uL (0-0.5); Absolute Lymphocytes (CBC) 1.7 K/uL (0.7-4.9); Absolute Monocytes 0.6 K/uL (0.1-1.3); Absolute Neutrophil 7.5 K/uL (1.8-8.0); Basophils % 0.3 % (0-1.3); Eosinophils % 0.6 % (0-4.4); Hematocrit 39.5 % (36.0-45.0); Hemoglobin 13.1 g/dL (12.0-15.0); Lymphocytes % 17.2 % (15.3-44.8); MCH 30.2 pg (27.0-35.0); MCHC 33.3 g/dL (32.0-36.0); MCV 90.7 fL (80-100); MPV 7.9 fL (7.6-11.3); Monocytes % 6.3 % (3.3-12.3); Neutrophils % 75.6 % (41.7-73.7); Platelets 333 thou/uL (152-406); RBC Red Blood Cell Count 4.36 M/uL (3.86-4.86); Red Cell Distribution Width 14.1 % (12.1-15.2)
[2024-06-06 06:29] LABS: Anion Gap 11.8 mEq/L (5.0-15.0); Magnesium 1.4 mg/dL (1.6-2.4); Phosphorus 1.9 mg/dL (2.5-4.9); Potassium 3.8 mEq/L (3.5-5.1)
[2024-06-06] MEDS: THIAMINE HCL 100 MG TABLET PO SCH (09:00)
[2024-06-06] MEDS: SPIRONOLACTONE 25 MG TABLET PO SCH (09:01)
[2024-06-06] MEDS: levoFLOXacin 750 MG TAB PO SCH (09:02)
[2024-06-06] MEDS: Magnesium Sulfate 2gm IVPB 2 G/50 ML BAG IV ONE (09:02)
[2024-06-06] MEDS: KCL 20 MEQ/100 mL IVPB 20 MEQ/100 ML BAG IV SCH (09:19)
--- NOTE | 2024-06-06 16:11 | P.PN ---
Date of Service: 06/06/24 Subjective Agitation requiring precedex drip, continue to titrate PO anxiolytics Tolerating FLD advancing to minced ROS 10 point ROS as noted above, otherwise negative Physical Exam General: Awake and alert, orientation x3, Some confusion HEENT: Atraumatic, Normocephalic, PERRLA Neck: Supple, 2+ carotid pulse no bruit Respiratory: Normal air movement, Clear BBS, on RA Cardiovascular: Normal S1 S2 present, Other (pacermaker), Irregular heart rate/rhythm Capillary refill: <2 Seconds Gastrointestinal: Normal bowel sounds, Soft on palpation, ND/NT Musculoskeletal: No clubbing Integumentary: No rashes Neurological: Normal speech, Normal tone, confusion Vitals Reviewed Problem list Acute aspiration pneumonia Esophageal stenosis S/P dilation Gastritis Anxiety/Agitation/metabolic encephalopathy Elevated troponin Congestive heart failure CAD status post CABG Intractable nausea Hypokalemia Decreased PO intake Alcohol abuse Prolonged QT/QTc Plan Acute aspiration pneumonia Esophageal stenosis S/P dilation Gastritis -Broadened back to merrem 06/01 given CTA showing worsening pneumonia -CTA negative for PE -ABG without acidosis/hypercapnia -Symptoms improved with precedex/ativan/Klonopin -blood cultures-NGTD -Sputum culture-Normal george -Speech therapy consulted for dysphagia, recommend Full liquid diet -Dr. Montejo consulted-EGD showed esophageal stenosis, gastritis -Dilation performed,on PPI-tolerating FLD Anxiety/Agitation/metabolic encephalopathy -Patient was having increased anxiety, tachypnea -Was moved to ICU, started on Precedex drip -Symptoms improved/under control when on Precedex -Becomes easily anxious/agitated and tachypneic -Attempting to wean Precedex, trying scheduled Klonopin -Titrated Klonopin to 3 times daily -Consider psychiatry consult when available to further help with medication adjustments for anxiety -Anxiety seems to be significantly contributing to patient's symptoms -When calm respiratory status is fine, when weaned off Precedex she becomes agitated and tachypneic -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 Elevated troponin Congestive heart failure CAD status post CABG Pacemaker present -Pacemaker interrogated 05/28 -Continue home medication -Troponin 50/73.8/76.8 -Cardiology consult -Echo shows low normal LVEF 50%, normal diastolic function, normal filling pressures, mild pulmonary hypertension Intractable nausea Hypokalemia Decreased PO intake Alcohol abuse -thiamine and folic acid daily -Protonix IV twice daily -Speech/GI recommends FLD -hold zofran d/t QTc 500 -She reports inability to tolerate IV and PO forms, Family able to encourage compliance DEZ -Gentle IVF -Chemistry daily Prolonged QT/QTc -QTc 450, 500 -hold Zofran DVT PPx-lovenox Full code LOS 2 days-plan to get inpatient rehab when weaned off Precedex
[2024-06-06] MEDS: clonazePAM 1 MG TAB PO SCH (20:26)
[2024-06-07 06:18] LABS: Absolute Monocytes 0.6 K/uL (0.1-1.3); Absolute Neutrophil 10.9 K/uL (1.8-8.0); Basophils % 0.2 % (0-1.3); Eosinophils % 0.2 % (0-4.4); Hematocrit 41.3 % (36.0-45.0); Hemoglobin 13.8 g/dL (12.0-15.0); Lymphocytes % 8.3 % (15.3-44.8); MCH 29.7 pg (27.0-35.0); MCHC 33.4 g/dL (32.0-36.0); MPV 7.6 fL (7.6-11.3); Monocytes % 4.9 % (3.3-12.3); Neutrophils % 86.4 % (41.7-73.7); Nucleated Red Blood Cells % 0.1 % (0-0); Platelets 429 thou/uL (152-406); RBC Red Blood Cell Count 4.64 M/uL (3.86-4.86)
[2024-06-07 06:19] LABS: Anion Gap 10.9 mEq/L (5.0-15.0); Magnesium 1.7 mg/dL (1.6-2.4); Phosphorus 3.1 mg/dL (2.5-4.9); Potassium 3.9 mEq/L (3.5-5.1)
[2024-06-07] MEDS: MAGNESIUM SULFATE 1 gm IVPB 1 GM/100 ML BAG IV ONE (08:12)
[2024-06-07 08:42] LABS: Blood Morphology Comment NOT SEEN (NOT SEEN); Platelet Estimate ADEQ; Platelets, Giant NOTED; White Blood Cell Scan OK (OK)
[2024-06-07] MEDS: GUAIFENESIN 600 MG SA TAB PO SCH (13:02)
[2024-06-07] MEDS: LEVALBUTEROL 1.25 MG/3 ML NEB NEB SCH (13:27)
--- NOTE | 2024-06-07 13:35 | P.PN ---
Date of Service: 06/07/24 Subjective Awake, knows she is in the hospital, less agitation this morning Precedex is off, klonopin working well WBC increased some, will monitor ROS 10 point ROS as noted above, otherwise negative Physical Exam General: AAO x3, Some confusion HEENT: Atraumatic, Normocephalic, PERRLA Neck: Supple, 2+ carotid pulse no bruit Respiratory: symmetrical chest wall movement, Clear BBS, on RA, tachypneic Cardiovascular: Normal S1 S2 present, Other (pacermaker), Tachycardic Capillary refill: <2 Seconds Gastrointestinal: Normal bowel sounds, Soft on palpation, ND/NT Musculoskeletal: No clubbing Integumentary: No rashes Neurological: Normal speech, Normal tone, confusion Vitals Reviewed Problem list Acute aspiration pneumonia Esophageal stenosis S/P dilation Gastritis Anxiety/Agitation/metabolic encephalopathy Elevated troponin Congestive heart failure CAD status post CABG Intractable nausea Hypokalemia Decreased PO intake Alcohol abuse Prolonged QT/QTc Plan Acute aspiration pneumonia Esophageal stenosis S/P dilation Gastritis -Broadened back to merrem 06/01 given CTA showing worsening pneumonia -CTA negative for PE -ABG without acidosis/hypercapnia -Symptoms improved with precedex/ativan/Klonopin -blood cultures-NGTD -Sputum culture-Normal george -Speech therapy consulted for dysphagia, recommend Full liquid diet -Dr. Montejo consulted-EGD showed esophageal stenosis, gastritis -Dilation performed,on PPI-tolerating FLD Anxiety/Agitation/metabolic encephalopathy -Patient was having increased anxiety, tachypnea -Was moved to ICU, started on Precedex drip -Symptoms improved/under control when on Precedex -Becomes easily anxious/agitated and tachypneic -Attempting to wean Precedex, trying scheduled Klonopin -Titrated Klonopin to 3 times daily -Consider psychiatry consult when available to further help with medication adjustments for anxiety -Psychiatry not available this week -Anxiety seems to be significantly contributing to patient's symptoms -When calm respiratory status is fine, when weaned off Precedex she becomes agitated and tachypneic Elevated troponin Congestive heart failure CAD status post CABG Pacemaker present -Pacemaker interrogated 05/28 -Continue home medication -Troponin 50/73.8/76.8 -Cardiology consult -Echo shows low normal LVEF 50%, normal diastolic function, normal filling pressures, mild pulmonary hypertension Intractable nausea Hypokalemia Decreased PO intake Alcohol abuse -thiamine and folic acid daily -Protonix IV twice daily -Speech/GI recommends FLD -hold zofran d/t QTc 500 -She reports inability to tolerate IV and PO forms, Family able to encourage compliance DEZ -Gentle IVF -Chemistry daily Prolonged QT/QTc -QTc 450, 500 -hold Zofran DVT PPx-lovenox Full code LOS 2 days-plan to get inpatient rehab when weaned off Precedex
[2024-06-07] MEDS: LORazepam 2 MG/ML VIAL IV PRN (17:41)
[2024-06-07] MEDS: NA CHLORIDE 0.9% 1,000 ML IV SCH (18:24)
[2024-06-08 06:18] LABS: Absolute Lymphocytes (CBC) 1.4 K/uL (0.7-4.9); Absolute Monocytes 0.9 K/uL (0.1-1.3); Absolute Neutrophil 8.4 K/uL (1.8-8.0); Basophils % 0.3 % (0-1.3); Eosinophils % 0.1 % (0-4.4); Hematocrit 34.1 % (36.0-45.0); Hemoglobin 11.6 g/dL (12.0-15.0); Lymphocytes % 12.6 % (15.3-44.8); MCH 30.2 pg (27.0-35.0); MPV 7.7 fL (7.6-11.3); Monocytes % 8.5 % (3.3-12.3); Neutrophils % 78.5 % (41.7-73.7); Platelets 440 thou/uL (152-406); RBC Red Blood Cell Count 3.82 M/uL (3.86-4.86); Red Cell Distribution Width 14.4 % (12.1-15.2)
[2024-06-08 06:36] LABS: Anion Gap 9.5 mEq/L (5.0-15.0); Magnesium 1.5 mg/dL (1.6-2.4); Phosphorus 2.6 mg/dL (2.5-4.9); Potassium 3.5 mEq/L (3.5-5.1)
[2024-06-08] MEDS: Magnesium Sulfate 2gm IVPB 2 G/50 ML BAG IV ONE (08:12)
[2024-06-08] MEDS: KCL 20 MEQ/100 mL IVPB 20 MEQ/100 ML BAG IV SCH (09:39)
[2024-06-08] MEDS: ALBUTEROL 2.5 MG/3 ML NEB SOL NEB SCH (11:00)
--- NOTE | 2024-06-08 12:19 | P.PN ---
Date of Service: 06/08/24 Adrienne Phelan is an 88 year old female with Pmhx CHF, CAD status post three- vessel CABG who presented to the ED with moderate to severe nausea for the past 3 days, Phenergan IM was administered by EMS. She reports dry heaves with severe nausea for three days and feeling so bad she called EMS. She denies having experienced this in the past. She reports having chronic post nasal drip and coughing but no home oxygen. Initial vitals9 BP 147 / 63; Pulse 104; Resp 18; Temp 97.6; Pulse Ox 87% laboratory evaluation significant for sodium 133, potassium 2.7, serum glucose 168, C-reactive protein 164, BNP 2984 CT CAP reports "1. Predominantly basilar airspace disease with debris/secretions in the bronchi concerning for pneumonia or pneumonitis, possibly secondary to aspiration. 2. No acute findings within the pelvis. 3. Thoracic and lumbar compression fractures that are favored chronic. Correlate clinically. If there is concern for an acute compression fracture or if acuity needs to be assessed, MRI could better discern." Chest xray reports " Basilar airspace disease which could reflect pneumonia or pneumonitis. Reference same day CT." Adrienne will be admitted to hospitalist service for further treatment of intractable nausea/vomiting. Subjective: pt states she didn't sleep well. ROS 10 point ROS as noted above, otherwise negative Physical Exam General: AAO x3, Some confusion, knows name and where she is, o/w calling out for her Mother and confused HEENT: Atraumatic, Normocephalic, PERRLA Neck: Supple, 2+ carotid pulse no bruit Respiratory: symmetrical chest wall movement, crackles, exp wheezing BBS, on RA Cardiovascular: Normal S1 S2 present, Other (pacermaker), Tachycardic 112-120 Capillary refill: <2 Seconds Gastrointestinal: Normal bowel sounds, Soft on palpation, ND/NT Musculoskeletal: No clubbing Integumentary: No rashes Neurological: Normal speech, Normal tone, confusion, fatigue Vitals Reviewed Problem list Acute aspiration pneumonia Esophageal stenosis S/P dilation Gastritis Anxiety/Agitation/metabolic encephalopathy Elevated troponin Congestive heart failure CAD status post CABG Intractable nausea Hypokalemia Decreased PO intake Alcohol abuse Prolonged QT/QTc Plan Acute aspiration pneumonia Esophageal stenosis S/P dilation Gastritis -Broadened back to merrem 06/01 given CTA showing worsening pneumonia - repeat CXR, on po Levaquin 06/08/24 -CTA negative for PE -ABG without acidosis/hypercapnia -Symptoms improved with precedex/ativan/Klonopin- weaned from Precedex, on Klonopin TID -blood cultures-NGTD -Sputum culture-Normal george -Speech therapy consulted for dysphagia, recommend Full liquid diet -Dr. Montejo consulted-EGD showed esophageal stenosis, gastritis -Dilation performed,on PPI-tolerating FLD Anxiety/Agitation/metabolic encephalopathy -Patient was having increased anxiety, tachypnea -Was moved to ICU, started on Precedex drip -Symptoms improved/under control when on Precedex -Becomes easily anxious/agitated and tachypneic -Attempting to wean Precedex, trying scheduled Klonopin -Titrated Klonopin to 3 times daily - 06/08/24 off Precedex -Consider psychiatry consult when available to further help with medication adjustments for anxiety -Psychiatry not available this week -Anxiety seems to be significantly contributing to patient's symptoms -When calm respiratory status is fine, when weaned off Precedex she becomes agitated and tachypneic PT eval - pt not appropriate for IPR, recommend SNF, SS consulted to speak with POAH Elevated troponin Congestive heart failure CAD status post CABG Pacemaker present -Pacemaker interrogated 05/28 -Continue home medication -Troponin 50/73.8/76.8 -Cardiology consult -Echo shows low normal LVEF 50%, normal diastolic function, normal filling pressures, mild pulmonary hypertension Intractable nausea Hypokalemia Decreased PO intake Alcohol abuse -thiamine and folic acid daily -Protonix IV twice daily -Speech/GI recommends FLD -hold zofran d/t QTc 500 -She reports inability to tolerate IV and PO forms, Family able to encourage compliance 06/08/24 resolving, tolerates [place] diet DEZ -Gentle IVF -Chemistry daily Prolonged QT/QTc -QTc 450, 500 -hold Zofran urinary retention overnight 06/08/24 shannon placed, will monitor I&O DVT PPx-lovenox Full code
--- NOTE | 2024-06-08 13:15 | RAD REPORT ---
EXAMINATION: ONE VIEW CHEST XR CLINICAL INDICATION: reassess for discharge TECHNIQUE: Frontal chest projection is submitted. Examination is limited by patient positioning and t echnique. COMPARISON: 06/03/2024 FINDINGS: The lungs appear grossly clear. The heart is mildly prominent in size. Elevated left hemidiaphragm, c hronic. Dual lead pacer device is present. Sternotomy wires noted. Right-sided PICC line is tip in the right subclavian vein.
[2024-06-08] MEDS: LEVALBUTEROL 1.25 MG/3 ML NEB NEB SCH (13:41)
[2024-06-09] MEDS: IPRATROPIUM BROM 0.5MG/2.5ML NEB PRN (01:10)
[2024-06-09 05:48] LABS: Absolute Basophils 0.1 K/uL (0-0.5); Absolute Lymphocytes (CBC) 1.2 K/uL (0.7-4.9); Absolute Monocytes 0.9 K/uL (0.1-1.3); Absolute Neutrophil 8.5 K/uL (1.8-8.0); Basophils % 0.7 % (0-1.3); Eosinophils % 0.2 % (0-4.4); Hemoglobin 11.6 g/dL (12.0-15.0); Lymphocytes % 10.8 % (15.3-44.8); MCH 29.8 pg (27.0-35.0); MCHC 33.3 g/dL (32.0-36.0); MCV 89.4 fL (80-100); MPV 7.5 fL (7.6-11.3); Monocytes % 8.5 % (3.3-12.3); Neutrophils % 79.8 % (41.7-73.7); Platelets 419 thou/uL (152-406); RBC Red Blood Cell Count 3.91 M/uL (3.86-4.86); Red Cell Distribution Width 14.5 % (12.1-15.2)
[2024-06-09 06:02] LABS: Anion Gap 9.7 mEq/L (5.0-15.0); Magnesium 1.5 mg/dL (1.6-2.4); Phosphorus 2.5 mg/dL (2.5-4.9); Potassium 3.7 mEq/L (3.5-5.1)
[2024-06-09] MEDS: Magnesium Sulfate 2gm IVPB 2 G/50 ML BAG IV ONE (06:32)
[2024-06-09] MEDS: POTASSIUM PHOS IN 0.9 % NACL 15 MMOL/250 ML BAG IV ONE (06:32)
[2024-06-09] MEDS: FUROSEMIDE 40 MG/4 ML VIAL IV ONE (08:46)
--- NOTE | 2024-06-09 16:19 | P.PN ---
Date of Service: 06/09/24 Adrienne Phelan is an 88 year old female with Pmhx CHF, CAD status post three- vessel CABG who presented to the ED with moderate to severe nausea for the past 3 days, Phenergan IM was administered by EMS. She reports dry heaves with severe nausea for three days and feeling so bad she called EMS. She denies having experienced this in the past. She reports having chronic post nasal drip and coughing but no home oxygen. Initial vitals9 BP 147 / 63; Pulse 104; Resp 18; Temp 97.6; Pulse Ox 87% laboratory evaluation significant for sodium 133, potassium 2.7, serum glucose 168, C-reactive protein 164, BNP 2984 CT CAP reports "1. Predominantly basilar airspace disease with debris/secretions in the bronchi concerning for pneumonia or pneumonitis, possibly secondary to aspiration. 2. No acute findings within the pelvis. 3. Thoracic and lumbar compression fractures that are favored chronic. Correlate clinically. If there is concern for an acute compression fracture or if acuity needs to be assessed, MRI could better discern." Chest xray reports " Basilar airspace disease which could reflect pneumonia or pneumonitis. Reference same day CT." Adrienne will be admitted to hospitalist service for further treatment of intractable nausea/vomiting. Subjective: pt states she didn't sleep well again. Trying to get her up with PT to rerequest IPR ROS 10 point ROS as noted above, otherwise negative Physical Exam General: AAO x3 HEENT: Atraumatic, Normocephalic, PERRLA Neck: Supple, 2+ carotid pulse no bruit Respiratory: symmetrical chest wall movement, crackles, exp wheezing BBS, on RA Cardiovascular: Normal S1 S2 present, Other (pacermaker), Tachycardic 109-112 Capillary refill: <2 Seconds Gastrointestinal: Normal bowel sounds, Soft on palpation, ND/NT Musculoskeletal: No clubbing Integumentary: No rashes Neurological: Normal speech, Normal tone, confusion, fatigue Vitals Reviewed Problem list Acute aspiration pneumonia Esophageal stenosis S/P dilation Gastritis Anxiety/Agitation/metabolic encephalopathy Elevated troponin Congestive heart failure CAD status post CABG Intractable nausea Hypokalemia Decreased PO intake Alcohol abuse Prolonged QT/QTc Plan Acute aspiration pneumonia Esophageal stenosis S/P dilation Gastritis -Broadened back to merrem 06/01 given CTA showing worsening pneumonia - repeat CXR, on po Levaquin 06/08/24 -CTA negative for PE -ABG without acidosis/hypercapnia -Symptoms improved with precedex/ativan/Klonopin- weaned from Precedex, on Klonopin TID -blood cultures-NGTD -Sputum culture-Normal george -Speech therapy consulted for dysphagia, recommend Full liquid diet -Dr. Montejo consulted-EGD showed esophageal stenosis, gastritis -Dilation performed,on PPI-tolerating FLD Anxiety/Agitation/metabolic encephalopathy -Patient was having increased anxiety, tachypnea -Was moved to ICU, started on Precedex drip -Symptoms improved/under control when on Precedex -Becomes easily anxious/agitated and tachypneic -Attempting to wean Precedex, trying scheduled Klonopin -Titrated Klonopin to 3 times daily - 06/08/24 off Precedex -Consider psychiatry consult when available to further help with medication ad justments for anxiety -Psychiatry not available this week -Anxiety seems to be significantly contributing to patient's symptoms PT eval - pt not appropriate for IPR, recommend SNF, SS consulted to speak with POAH 06/09/24 Continue to encourage pt to get up and work with PT. Downgrade to Acute floor Elevated troponin Congestive heart failure CAD status post CABG Pacemaker present -Pacemaker interrogated 05/28 -Continue home medication -Troponin 50/73.8/76.8 -Cardiology consult -Echo shows low normal LVEF 50%, normal diastolic function, normal filling pressures, mild pulmonary hypertension Intractable nausea Hypokalemia Decreased PO intake Alcohol abuse -thiamine and folic acid daily -Protonix IV twice daily -Speech/GI recommends FLD -hold zofran d/t QTc 500 -She reports inability to tolerate IV and PO forms, Family able to encourage compliance 06/08/24 resolving, tolerates [place] diet DEZ -Gentle IVF -Chemistry daily Prolonged QT/QTc -QTc 450, 500 -hold Zofran urinary retention overnight 06/08/24 shannon placed, will monitor I&O I&O stable, may remove shannon DVT PPx-lovenox Full code
[2024-06-09] MEDS: ACETAMINOPHEN 325 MG TABLET PO PRN (17:07)
[2024-06-10 05:32] LABS: Absolute Basophils 0.1 K/uL (0-0.5); Absolute Lymphocytes (CBC) 1.6 K/uL (0.7-4.9); Absolute Monocytes 1.1 K/uL (0.1-1.3); Absolute Neutrophil 6.1 K/uL (1.8-8.0); Basophils % 0.7 % (0-1.3); Eosinophils % 0.5 % (0-4.4); Hematocrit 33.3 % (36.0-45.0); Hemoglobin 11.3 g/dL (12.0-15.0); Lymphocytes % 18.2 % (15.3-44.8); MCH 30.1 pg (27.0-35.0); MCHC 33.8 g/dL (32.0-36.0); MPV 7.6 fL (7.6-11.3); Monocytes % 11.8 % (3.3-12.3); Neutrophils % 68.8 % (41.7-73.7); Platelets 384 thou/uL (152-406); RBC Red Blood Cell Count 3.74 M/uL (3.86-4.86); Red Cell Distribution Width 14.4 % (12.1-15.2)
[2024-06-10 05:50] LABS: Anion Gap 9.7 mEq/L (5.0-15.0); Magnesium 1.7 mg/dL (1.6-2.4); Phosphorus 3.3 mg/dL (2.5-4.9); Potassium 3.7 mEq/L (3.5-5.1)
--- NOTE | 2024-06-10 07:51 | P.PN ---
Subjective Date of Service: 06/10/24 Chief Complaint: Pneumonia Informed by nurse that patient was confused overnight. The patient rested well after receiving Ativan. At bedside the patient is alert, and oriented x 1name only. No family is present at bedside. The patient is able to follow simple commands. <Juanita Chung - Last Filed: 06/10/24 09:36> Date of Service: 06/11/24 <jose juan puente - Last Filed: 06/11/24 16:22> Review of Systems General: Other (Demented) Neurological: Confusion (Overnight) <Juanita Chung - Last Filed: 06/10/24 09:36> Physical Examination - Vital Signs Temperature: 98.3 F Blood Pressure: 93/60 Pulse: 99 Respirations: 18 Pulse Ox (%): 98 - Physical Exam General: Alert, In no apparent distress, Oriented x1 HEENT: Atraumatic, Normocephalic Neck: JVD not distended Respiratory: Normal air movement Cardiovascular: No edema, Regular rate/rhythm, No gallops, No rubs, No murmurs Gastrointestinal: Normal bowel sounds, Non-distended, No tenderness Musculoskeletal: No swelling, No erythema, No tenderness, No warmth Neurological: Normal strength at 5/5 x4 extr ( 5/5 strength in bilateral lower extremities-able to follow simple commands), Sensation intact - Studies Medications List Reviewed: Yes <Juanita Chung - Last Filed: 06/10/24 09:36> Assessment And Plan - Plan Acute aspiration pneumonia Esophageal stenosis S/P dilation Gastritis -Continue on Merrem -CXR from 06/08/24 revealed no acute disease -CTA negative for PE -ABG without acidosis/hypercapnia -blood cultures-NGTD -Sputum culture-Normal george -Now on regular diet -Dr. Montejo consulted-EGD showed esophageal stenosis, gastritis -Dilation performed,on PPI-tolerating FLD Anxiety/Agitation/metabolic encephalopathy -Continue with Ativan and Klonopin as needed -Consider psychiatry consult when available -Anxiety seems to be significantly contributing to patient's symptoms 06/09/24 Downgraded to Acute floor Frailty: -PT/OT ordered -Encouraged increased protein intake Elevated troponin Congestive heart failure CAD status post CABG Pacemaker present -Pacemaker interrogated 05/28 -Continue home medication -Echo shows low normal LVEF 50%, normal diastolic function, normal filling pressures, mild pulmonary hypertension Intractable nausea Hypokalemia Decreased PO intake Alcohol abuse -thiamine and folic acid daily -Protonix IV twice daily -Now on regular diet DEZ -Gentle IVF -Chemistry daily Prolonged QT/QTc -QTc 450, 500 -hold Zofran urinary retention overnight 06/08/24 shannon still intact, will monitor I&O Pending SNF placement to [facility] when medically ready DVT PPx-lovenox Full code - Code Status/Comfort Care Code Status Assessed: Yes Code Status: Full Code <Juanita Chung - Last Filed: 06/10/24 09:36> - Plan Patient seen and examined, plan of care discussed with Ms. Chung. Patient seen on the medical floor sitting in a chair with daughter by her bedside. She is more interactive. No issues overnight No reported agitation. Decrease Klonopin dose to 0.5 mg twice daily as needed. Discontinue Ativan. Diet as tolerated Continue PT. Patient planned for SNF placement. Plan of care discussed with patient's daughter. <jose juan puente - Last Filed: 06/11/24 16:22>
[2024-06-10] MEDS: MAGNESIUM SULFATE 1 gm IVPB 1 GM/100 ML BAG IV ONE (08:00)
[2024-06-10] MEDS: POTASSIUM 25 MEQ EFFERV TAB PO ONE (08:24)
[2024-06-10] MEDS: POTASSIUM CL SA 10 MEQ TAB PO ONE (08:25)
[2024-06-10 10:47] VITALS: BMI 25.7
[2024-06-10] MEDS: clonazePAM 1 MG TAB PO SCH (20:02)
[2024-06-11 04:51] LABS: Absolute Basophils 0.1 K/uL (0-0.5); Absolute Eosinophils 0.1 K/uL (0-0.5); Absolute Lymphocytes (CBC) 1.3 K/uL (0.7-4.9); Absolute Monocytes 1.1 K/uL (0.1-1.3); Absolute Neutrophil 6.1 K/uL (1.8-8.0); Basophils % 1.1 % (0-1.3); Eosinophils % 0.7 % (0-4.4); Hematocrit 32.5 % (36.0-45.0); Hemoglobin 11.1 g/dL (12.0-15.0); Lymphocytes % 15.4 % (15.3-44.8); MCH 30.4 pg (27.0-35.0); MCHC 34.1 g/dL (32.0-36.0); MCV 89.1 fL (80-100); MPV 7.6 fL (7.6-11.3); Neutrophils % 69.8 % (41.7-73.7); Nucleated Red Blood Cells % 0.1 % (0-0); Platelets 343 thou/uL (152-406); RBC Red Blood Cell Count 3.65 M/uL (3.86-4.86); Red Cell Distribution Width 14.5 % (12.1-15.2)
[2024-06-11 05:05] LABS: Anion Gap 10.7 mEq/L (5.0-15.0); Magnesium 1.5 mg/dL (1.6-2.4); Phosphorus 2.8 mg/dL (2.5-4.9); Potassium 3.7 mEq/L (3.5-5.1)
[2024-06-11] MEDS: Magnesium Sulfate 2gm IVPB 2 G/50 ML BAG IV ONE (07:18)
[2024-06-11] MEDS ORDERED: Magnesium Sulfate 2gm IVPB 2 G/50 ML BAG IV ONE (08:00)
[2024-06-11] MEDS: POTASSIUM 25 MEQ EFFERV TAB PO ONE (08:17)
[2024-06-11] MEDS ORDERED: POTASSIUM CL SA 10 MEQ TAB PO ONE (09:00)
--- NOTE | 2024-06-11 09:15 | P.PN ---
Date of Service: 06/11/24 Subjective Weaned off precedex Stable on the acute care floor Still with confusion Attempting to wean benzos trying for SNF placement ROS 10 point ROS as noted above, otherwise negative Physical Exam General: AAO x1-2, Other (uncomfortable) HEENT: Atraumatic, Normocephalic, PERRLA Neck: Supple, 2+ carotid pulse no bruit Respiratory: Normal air movement, Clear BBS, on 4 LNC Cardiovascular: Normal pulses, Normal S1 S2, Other (pacermaker), Irregular heart rate/rhythm Capillary refill: <2 Seconds Gastrointestinal: Normal bowel sounds, Soft on palpation, Nondistended Musculoskeletal: No clubbing Integumentary: No rashes Neurological: Normal speech, Normal tone Vitals Reviewed Problem list Acute aspiration pneumonia Esophageal stenosis S/P dilation Gastritis Anxiety/Agitation/metabolic encephalopathy Elevated troponin Congestive heart failure CAD status post CABG Intractable nausea Hypokalemia Decreased PO intake Alcohol abuse Prolonged QT/QTc Plan Acute aspiration pneumonia Esophageal stenosis S/P dilation Gastritis -Switched to PO levaquin -CTA negative for PE -ABG without acidosis/hypercapnia -blood cultures-NGTD -Sputum culture-Normal george -Dr. Montejo consulted-EGD showed esophageal stenosis, gastritis -Dilation performed,on PPI -Tolerating a regular diet now Anxiety/Agitation/metabolic encephalopathy Anxiety improving Now with increased sedation Weaning down benzodiazepines Not nearly as tachypneic or dyspneic Pending SNF Elevated troponin Congestive heart failure CAD status post CABG Pacemaker present -Pacemaker interrogated 05/28 -Continue home medication -Troponin 50/73.8/76.8 -Cardiology consult -Echo shows low normal LVEF 50%, normal diastolic function, normal filling pressures, mild pulmonary hypertension Intractable nausea Hypokalemia Decreased PO intake Alcohol abuse -thiamine and folic acid daily -Protonix IV twice daily DEZ -Chemistry daily Prolonged QT/QTc -QTc 450, 500 -hold Zofran DVT PPx-lovenox Full code LOS 1 to 2 daysSNF
[2024-06-12] MEDS: DIPHENHYDRAMINE 25 MG TAB/CAP PO ONE (00:01)
[2024-06-12 04:51] LABS: Absolute Basophils 0.1 K/uL (0-0.5); Absolute Lymphocytes (CBC) 1.4 K/uL (0.7-4.9); Absolute Monocytes 0.8 K/uL (0.1-1.3); Basophils % 1.2 % (0-1.3); Eosinophils % 0.7 % (0-4.4); Hematocrit 32.8 % (36.0-45.0); Hemoglobin 10.5 g/dL (12.0-15.0); Lymphocytes % 21.7 % (15.3-44.8); MCH 29.1 pg (27.0-35.0); MCHC 32.1 g/dL (32.0-36.0); MCV 90.7 fL (80-100); MPV 7.7 fL (7.6-11.3); Monocytes % 13.1 % (3.3-12.3); Neutrophils % 63.3 % (41.7-73.7); Platelets 309 thou/uL (152-406); RBC Red Blood Cell Count 3.62 M/uL (3.86-4.86); Red Cell Distribution Width 14.4 % (12.1-15.2)
[2024-06-12 04:58] LABS: Anion Gap 10.6 mEq/L (5.0-15.0); Magnesium 1.5 mg/dL (1.6-2.4); Phosphorus 2.9 mg/dL (2.5-4.9); Potassium 3.6 mEq/L (3.5-5.1)
[2024-06-12] MEDS: Magnesium Sulfate 2gm IVPB 2 G/50 ML BAG IV ONE ×2 (05:59→06:08)
--- NOTE | 2024-06-12 08:13 | P.PN ---
Date of Service: 06/12/24 Subjective Weaned off precedex Stable on the acute care floor Mental status improved trying for SNF placement ROS 10 point ROS as noted above, otherwise negative Physical Exam General: AAO x2-3 HEENT: Atraumatic, Normocephalic, PERRLA Neck: Supple, 2+ carotid pulse no bruit Respiratory: Normal air movement, Clear BBS, on 4 LNC Cardiovascular: Normal pulses, Normal S1 S2, Other (pacermaker), Irregular heart rate/rhythm Capillary refill: <2 Seconds Gastrointestinal: Normal bowel sounds, Soft on palpation, Nondistended Musculoskeletal: No clubbing Integumentary: No rashes Neurological: Normal speech, Normal tone Vitals Reviewed Problem list Acute aspiration pneumonia Esophageal stenosis S/P dilation Gastritis Anxiety/Agitation/metabolic encephalopathy Elevated troponin Congestive heart failure CAD status post CABG Intractable nausea Hypokalemia Decreased PO intake Alcohol abuse Prolonged QT/QTc Plan Acute aspiration pneumonia Esophageal stenosis S/P dilation Gastritis -Switched to PO levaquin -CTA negative for PE -ABG without acidosis/hypercapnia -blood cultures-NGTD -Sputum culture-Normal george -Dr. Montejo consulted-EGD showed esophageal stenosis, gastritis -Dilation performed,on PPI -Tolerating a regular diet now -Dyspnea improved/mostly resolved Anxiety/Agitation/metabolic encephalopathy Anxiety improving Weaning down benzodiazepines Not nearly as tachypneic or dyspneic Pending SNF Elevated troponin Congestive heart failure CAD status post CABG Pacemaker present -Pacemaker interrogated 05/28 -Continue home medication -Troponin 50/73.8/76.8 -Cardiology consult -Echo shows low normal LVEF 50%, normal diastolic function, normal filling pressures, mild pulmonary hypertension Intractable nausea Hypokalemia Decreased PO intake Alcohol abuse -thiamine and folic acid daily -Protonix IV twice daily DEZ -Chemistry daily Prolonged QT/QTc -QTc 450, 500 -hold Zofran DVT PPx-lovenox Full code LOS 1 to 2 daysSNF
[2024-06-12] MEDS: POTASSIUM CL SA 10 MEQ TAB PO ONE ×2 (08:21→08:35)
[2024-06-12] MEDS ORDERED: POTASSIUM 25 MEQ EFFERV TAB PO ONE (09:00)
[2024-06-12 09:31] VITALS: O2SAT 92
[2024-06-12 12:18] VITALS: BP 112/82; TEMP 98.3
[2024-06-12 12:24] LABS: SARS-CoV-2 Antigen CONTROL BLUE LINE VIS/BG OK; SARS-CoV-2 Antigen Rapid Res Negative (Negative)
== END 2024-06-12 15:14 | DRG 177 ==
LOC: ER 05:58 → ERHOLD 09:18 → 2ND 10:05 → 3RD-ICU 06-01 15:51 → 2ND 06-09 14:11
PROVIDERS: ADMIT Internal Medicine; ATTEND Internal Medicine
PROC: 5A09557 Assistance with Respiratory Ventilation, Greater than 96 Consecutive Hours, Continuous Positive Airway Pressure (ICD-10-PCS; 2024-05-30)
PROC: 0DB68ZX Excision of Stomach, Via Natural or Artificial Opening Endoscopic, Diagnostic (ICD-10-PCS; 2024-05-31)
PROC: 0DB78ZX Excision of Stomach, Pylorus, Via Natural or Artificial Opening Endoscopic, Diagnostic (ICD-10-PCS; 2024-05-31)
PROC: 0D758ZZ Dilation of Esophagus, Via Natural or Artificial Opening Endoscopic (ICD-10-PCS; principal; 2024-05-31 08:43)
PROC: 4A033R1 Measurement of Arterial Saturation, Peripheral, Percutaneous Approach (ICD-10-PCS; 2024-06-01)
PROC: 5A0955A Assistance with Respiratory Ventilation, Greater than 96 Consecutive Hours, High Flow/Velocity Cannula (ICD-10-PCS; 2024-06-01)
PROC: 02HV33Z Insertion of Infusion Device into Superior Vena Cava, Percutaneous Approach (ICD-10-PCS; 2024-06-01)
PROC: 0T9B70Z Drainage of Bladder with Drainage Device, Via Natural or Artificial Opening (ICD-10-PCS; 2024-06-08)
DX: J69.0 Pneumonitis due to inhalation of food and vomit (principal); G93.41 Metabolic encephalopathy; E87.1 Hypo-osmolality and hyponatremia; I50.32 Chronic diastolic (congestive) heart failure; N17.9 Acute kidney failure, unspecified; E87.3 Alkalosis; I11.0 Hypertensive heart disease with heart failure; E87.6 Hypokalemia; E86.0 Dehydration; F41.9 Anxiety disorder, unspecified; K22.2 Esophageal obstruction; K29.00 Acute gastritis without bleeding; F10.10 Alcohol abuse, uncomplicated; K44.9 Diaphragmatic hernia without obstruction or gangrene; J44.9 Chronic obstructive pulmonary disease, unspecified; I25.10 Atherosclerotic heart disease of native coronary artery without angina pectoris; R94.31 Abnormal electrocardiogram [ECG] [EKG]; R33.9 Retention of urine, unspecified; R79.89 Other specified abnormal findings of blood chemistry; Z93.3 Colostomy status; Z88.0 Allergy status to penicillin; Z88.5 Allergy status to narcotic agent; Z95.0 Presence of cardiac pacemaker; Z95.1 Presence of aortocoronary bypass graft; Z88.8 Allergy status to other drugs, medicaments and biological substances; Z11.52 Encounter for screening for COVID-19; Z79.02 Long term (current) use of antithrombotics/antiplatelets; Z79.899 Other long term (current) drug therapy
CPT/HCPCS: 36415; 36600; 70450; 71045; 71250; 71260; 71275; 74177; 80048; 80053; 80061; 81001; 82805; 83036; 83605; 83690; 83735; 83880; 84100; 84132; 84439; 84443; 84484; 85025; 86140; 87040; 87070; 87205; 87811; 88305; 88312; 92526; 92610; 93005; 93280; 93306; 94640; 94660; 96361; 96365; 96366; 96375; 97116; 97161; 97530; 99285; C1769; J0696; J1644; J1650; J1940; J2003; J2185; J2405; J2470; J2704; J2765; J2919; J3411; J3475; J3480; J7030; J7050; J7613; J7614; J7644; Q9967

== ENCOUNTER 2024-07-20 01:33 | Emergency (ER) | payer OTHER, MEDICARE ==
--- OUTSIDE RECORDS SUMMARY | 2024-07-20 01:39 | XMS REPORT | Continuity of Care Document ---
Author Name Unknown Address [address] [facility] [place] [address] [facility] thconnect Address [address] [facility] [address] [place] [address] Care Team Providers Care Manager Ent Name Role Phone Ta Perez MD Primary Care Physician ANNE CANDELARIA Attending Clinician UnaTA Jaramillo Attending Clinician Unavailable [place] Attending Clinician Unavailable YOUSUF_A1 Attending Clinician Unavailable ABIODUN LOW NATASHA Attending Clinician Unava Marianne Martinez Attending Clinician Unavailable Vibha Ambrose [facility] Attending Clinician Unavailable Anne Candelaria MD Attending Clinician [phone] Doctor Unassigned, [place] Attending Clinician U shakir Mckeon RN, Lily Lopez Attending Clinician Unavailab HE H[place] Attending Clinician Unavailable John Wiley DO Attending Clinician [phone] Bharati Juarez DO Attending Clinician He Sylvester MD Attending Clinician [phone] JESU RADFORD Attending Clinician Unavailable Jesu Radford MD Attending Clinician [phone] MUNIRA ELIAS Attending Clinician Unavailable MARILYN DENNY Attending Clinician Unavaildavid e Radiology Attending Clinician Unavailable 1, [facility] Attending Clinician Unavailable ANNE CANDELARIA Admitting Clinician UnavaMarianne Medellin Admitting Clinician Unavailable YOUSUF_A1 Admitting Clinician Unavailable ABIODUN LOW NATASHA Admitting Clinician Unava Darcy Goetz Admitting Clinician Unavailable BHARATI JUAREZ Admitting Clinician Unavailable Bharati Juarez DO Admitting Clinician [phone] JESU RADFORD Admitting Clinician Unavailable Payers Payer Name Policy Type Policy Number Effective Date Expirati on Date Source MEDICARE PART A \\T\\ [id number] 2001 00:00:00 [facility] MEDICARE SUPPLEMENT [id number] 2015 00:00:00 MEDICARE PART A AND B [id number] 2001 00:00:00 [place]: [employer] [id number] 2023 00:00:00 [facility] HEALTHCARE OPTIONS (MEDICARE SUPPLEMENT) [id number] 2023 00:00:00 [facility] MCR [id number] AARP AARP [id number] Problems Condition Name Condition Details Condition Category Status Onset Date Resolution Date Last Treatment Date Treating Clinician Comments Source Pulmonary hypertensi on Pulmonary hypertensi on Disease Active 08-03 00:00: 00 [facility] Aortic stenosis Aortic stenosis Disease Active 08-02 00:00: 00 [facility] Essential hypertensi on Essential hypertensi on Disease Active - 00:00: 00 [facility] Dyslipidem ia Dyslipidem ia Disease Active - 00:00: 00 [facility] (HFpEF) heart failure with preserved ejection fraction (HFpEF) heart failure with preserved ejection fraction Disease Active 2023-0 2-05 00:00: 00 [facility] CHF NYHA class II (symptoms with moderately strenuous activities ), unspecifie d failure chronicity , unspecifie d type CHF NYHA class II (symptoms with moderately strenuous activities ), unspecifie d failure chronicity , unspecifie d type Disease Active 2-04 00:00: 00 [facility] Bronchopne umonia Bronchopne umonia Disease Active 2-04 00:00: 00 [facility] COPD with acute exacerbati on COPD with acute exacerbati on Disease Active 2 00:00: 00 [facility] Allergic bronchitis with acute exacerbati on Allergic bronchitis with acute exacerbati on Disease Active 2 00:00: 00 [facility] 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 Disease Active 03-04 00:00: 00 [facility] 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 Tetanus Vaccines and Toxoid DA Active SV RASH - 00:00: [address] [facility] codeine DA Active SV HIVE - 00:00: [address] [facility] diphenhy dramine DA Active SV RASH 08-09 00:00: [address] [facility] Diphenhy dramine Allergy to substanc e Active Other 2-03 00:00: 00 Other Reaction( s): HYPER [facility] diphenhy dramine DA Active MO HYPER 2- 00:00: 00 [facility] No Known Allergie s DA Active U 2 00:00: 00 [facility] Penicill ins DA Active U UNKNOWN 2 00:00: 00 [facility] codeine DA Active U HYPER 2 00:00: 00 [facility] ANATOXIN DA Active MO SWELLING 07-29 00:00: 00 [facility] Tetanus Antitoxi n Allergy to substanc e Active Unknown 9-11 00:00: 00 [facility] PENICILL IN DRUG INGREDI Active Rash 01-14 00:00: 00 [facility] Penicill in Propensi ty to adverse reaction s Active Rash 01-14 00:00: 00 [facility] PENICILL INS Drug Class Active High Anaphylaxis 01-12 00:00: 00 [facility] CODEINE DRUG INGREDI Active Med Other-Cmnt 01-12 00:00: 00 [facility] TETANUS TOXOID DRUG Active Unknown-Cmnt 01-12 00:00: 00 [facility] Codeine Propensi ty to adverse reaction s to drug Active Other - See comments 01-12 00:00: 00 Makes patient extremely hyper [facility] Penicill ins Propensi ty to adverse reaction s to drug Active Swelling 01-12 00:00: 00 [facility] Tetanus Toxoid Propensi ty to adverse reaction s Active Unknown - See comments 01-12 00:00: 00 [facility] Codeine Allergy to substanc e Active Unknown 01-12 00:00: 00 Other Reaction( s): HYPER, Nausea/Vo miting Makes patient extremely hyper [facility] Penicill ins Allergy to substanc e Active Swelling 01-12 00:00: 00 Other Reaction( s): Nausea/Vo miting [facility] Social History Social Habit Start Date Stop Date Quantity Comments Source History SDOH Social Connections Get Together [facility] History SDOH Social Connections [facility] History SDOH Social Connections Membership [facility] History SDOH Social Connections Meetings [facility] History of tobacco use Cigarette Smoker [facility] Sexual orientation [facility] Tobacco use and exposure 2023-11-29 00:00:00 2023-11-29 00:00:00 Smokeless tobacco non-user [facility] History SDOH Alcohol Frequency 2022-08-03 00:00:00 2022-08-03 00:00:00 1 [facility] History SDOH Alcohol Std Drinks 2022-08-03 00:00:00 2022-08-03 00:00:00 0 [facility] History SDOH Alcohol Binge 2022-08-03 00:00:00 2022-08-03 00:00:00 1 [facility] History SDOH Social Connections Phone 2022-08-03 00:00:00 2022-08-03 00:00:00 5 [facility] History SDOH Social Connections Living 2022-08-03 00:00:00 2022-08-03 00:00:00 4 [facility] History SDOH Physical Activity DPW 2022-08-03 00:00:00 2022-08-03 00:00:00 5 [facility] History SDOH Physical Activity MPS 2022-08-03 00:00:00 2022-08-03 00:00:00 3 [facility] History SDOH Financial 2022-08-03 00:00:00 2022-08-03 00:00:00 5 [facility] History SDOH Food Worry 2022-08-03 00:00:00 2022-08-03 00:00:00 1 [facility] History SDOH Food Scarcity 2022-08-03 00:00:00 2022-08-03 00:00:00 1 [facility] History SDOH Transport Med 2022-08-03 00:00:00 2022-08-03 00:00:00 2 [facility] History SDOH Transport Non-Med 2022-08-03 00:00:00 2022-08-03 00:00:00 2 [facility] Alcohol intake 2022-08-02 00:00:00 2022-08-02 00:00:00 0 /d [facility] Exposure to SARS-CoV-2 (event) 2022-07-22 00:00:00 2022-08-01 11:15:00 Not sure [facility] History of Social function 2020-10-24 00:00:00 2020-10-24 00:00:00 [facility] Cigarettes smoked current (pack per day) - Reported 2017-03-04 00:00:00 2017-03-04 00:00:00 [facility] Cigarette pack-years 2017-03-04 00:00:00 2017-03-04 00:00:00 [facility] Sex Assigned At 1935 00:00:00 1935 00:00:00 [facility] Smoking Status Start Date Stop Date Source Tobacco smoking consumption unknown [facility] Ex-smoker 2023-11-29 00:00:00 2023-11-29 00:00:00 [employer] Medications Ordered Medication Name Filled Medication Name Start Date Stop Date Current Medication? Ordering Clinician Indication Dosage Frequency Signature (SIG) Comments Components Source barium sulfate (E-Z-HD BARIUM) 98 % oral suspension 680 g 2022-06 16:15: 00 06-10 16:13 :00 No [id number] 680g 680 g, Oral, ONCE, 1 dose, On Wed06/10/23 at 1015, Routine [facility] predniSONE 20 mg tablet 08-07 00:00: 00 08-12 05:59 :00 No [id number] 40mg Take 2 tablets by mouth in the morning for 4 days. [facility] clopidogrel (PLAVIX) 75 mg tablet 08-06 12:53: 46 Yes 75mg Take 75 mg by mouth daily. [facility] aspirin 81 mg EC tablet 08-06 12:53: 46 Yes 81mg Take 81 mg by mouth daily. [facility] Vit A,C,E-Zinc- Copper (ICAPS AREDS) 14,320-226- 200 unit-mg-uni t Cap 08-06 12:53: 46 Yes 2{capsu le} Take 2 capsules by mouth daily. [facility] LORazepam 0.5 mg tablet 08-06 12:53: 46 Yes .5mg Take 0.5 mg by mouth 2 (two) times daily. [facility] atorvastati n 80 mg tablet 08-06 12:53: 46 Yes 80mg Take 80 mg by mouth at bedtime. [facility] Vit A,C,E-Zinc- Copper (ICAPS AREDS) 14,320-226- 200 unit-mg-uni t Cap 08-06 12:53: 46 Yes 2{capsu le} Take 2 capsules by mouth daily. [facility] levoFLOXaci n 500 mg tablet 08-06 00:00: 00 08-10 05:59 :00 No [id number] 500mg Take 1 tablet by mouth every 24 (twenty-fo ur) hours for 3 days. [facility] sennosides- docusate sodium (SENOKOT-S) 8.6-50 mg per tablet 1 tablet 08-05 15:00: 00 Yes 1{tbl} 1 tablet, Oral, DAILY, First dose on Wed08/05/22 at 0900, Until Discontinu ed, Routine [facility] polyethylen e glycol 3350 powder 17 g 08-05 15:00: 00 Yes 17g 17 g, Oral, DAILY, First dose on Wed08/05/22 at 0900, Until Discontinu ed, Routine [facility] levalbutero l (XOPENEX) nebulizer solution 0.63 mg 08-05 02:00: 00 Yes .63mg 0.63 mg, Inhalation , QID, First dose (after last modificati on) on Wed08/04/22 at 2000, Until Discontinu ed, Routine [facility] KCL (KLOR-CON M20) tablet 40 mEq 08-04 16:00: 00 08-04 17:26 :00 No 40meq 40 mEq, Oral, ONCE, 1 dose, On Wed08/04/22 at 1000, Routine [facility] traZODone (DESYREL) tablet 50 mg 08-04 06:30: 00 Yes 50mg 50 mg, Oral, QHS, First dose on Wed08/04/22 at 0030, Until Discontinu ed, Routine [facility] magnesium sulfate in water 4 gram/50 mL (8 %) IV Piggyback 4 g 08-04 01:15: 00 08-04 04:12 :00 No 4g 4 g, IV Piggyback, at 25 mL/hr Administer over 120 Minutes, ONCE, 1 dose, On Wed08/03/22 at 1915, Routine [facility] levoFLOXaci n in D5W [...] ion of therapy: 5 days [facility] predniSONE (DELTASONE) tablet 40 mg 08-03 15:00: 00 Yes 40mg 40 mg, Oral, DAILY, First dose on Wed08/03/22 at 0900, Until Discontinu ed, Routine [facility] atorvastati n (LIPITOR) tablet 80 mg 08-03 03:00: 00 Yes 80mg 80 mg, Oral, QHS, First dose on Wed08/02/22 at 2100, Until Discontinu ed, Routine [facility] levalbutero l (XOPENEX) nebulizer solution 0.63 mg 08-03 02:00: 00 08-04 21:14 :31 No .63mg 0.63 mg, Inhalation , TID, First dose on Wed08/02/22 at 2000, Until Discontinu ed, Routine [facility] ipratropium (ATROVENT) 0.02 % nebulizer solution 0.5 mg 08-02 22:00: 00 Yes .5mg 0.5 mg, Inhalation , QID, First dose on 08/02/22 at 1600, Until Discontinu ed, Routine [facility] albuterol (PROVENTIL) 2.5 mg /3 mL (0.083 %) nebulizer solution 2.5 mg 08-02 22:00: 00 08-03 00:25 :23 No 2.5mg 2.5 mg, Inhalation , QID, First dose on 08/02/22 at 1600, Until Discontinu ed, Routine [facility] metoprolol succinate XL (TOPROL XL) tablet 25 mg 08-02 15:00: 00 Yes 25mg 25 mg, Oral, DAILY, First dose on 08/02/22 at 0900, Until Discontinu ed, Routine [facility] loratadine (CLARITIN) tablet 10 mg 08-02 15:00: 00 Yes 10mg 10 mg, Oral, DAILY, First dose on 08/02/22 at 0900, Until Discontinu ed, Routine [facility] lisinopriL (PRINIVIL,Z ESTRIL) tablet 10 mg 08-02 15:00: 00 Yes 10mg 10 mg, Oral, DAILY, First dose on 08/02/22 at 0900, Until Discontinu ed, Routine [facility] fluticasone propionate 50 mcg/actuati on nasal spray 2 [place] 08-02 15:00: 00 Yes 2{spray } 2 [place], Nasal, DAILY, First dose on 08/02/22 at 0900, Until Discontinu ed, Routine [facility] clopidogreL (PLAVIX) 75 mg tablet 75 mg 08-02 15:00: 00 Yes 75mg 75 mg, Oral, DAILY, First dose on 08/02/22 at 0900, Until Discontinu ed, Routine [facility] aspirin EC tablet 81 mg 08-02 15:00: 00 Yes 81mg 81 mg, Oral, DAILY, First dose on 08/02/22 at 0900, Until Discontinu ed, Routine [facility] LORazepam (ATIVAN) tablet 0.5 mg 08-02 14:05: 55 Yes .5mg 0.5 mg, Oral, BIDPRN, Starting on 08/02/22 at 0805, Until Discontinu ed, Routine, Anxiety [facility] guaiFENesin 100 mg/5 mL solution 200 mg 08-02 06:42: 31 Yes 200mg 200 mg, Oral, Q4HPRN, Starting on [place] 08/02/22 at 0042, Until Discontinu ed, Routine, Cough [facility] heparin (porcine) injection 5,000 Units 08-02 04:00: 00 Yes 5000U 5,000 Units, Subcutaneo us, Q8H, First dose on 08/01/22 at 2200, Until Discontinu ed, Routine [facility] montelukast (SINGULAIR) tablet 10 mg 08-02 03:12: 53 Yes 10mg 10 mg, Oral, [id number], Starting on 08/01/22 at 211, Until Discontinu ed, Routine, symptoms [facility] benzonatate (TESSALON PERLES) capsule 100 mg 08-02 03:11: 43 Yes 100mg 100 mg, Oral, TIDPRN, Starting on 08/01/22 at 211, Until Discontinu ed, Routine, Cough [facility] furosemide (LASIX) injection 20 mg 08-02 02:00: 00 08-03 14:37 :31 No 20mg 20 mg, Slow IV Push, Q12H, First dose on 08/01/22 at 2000, Until Discontinu ed, Routine [facility] acetaminoph en (TYLENOL) tablet 650 mg 08-01 23:27: 25 Yes 650mg 650 mg, Oral, Q6HPRN, Starting on 08/01/22 at 1727, Until Discontinu ed, Routine, Pain (scale 1-3) [facility] NaCl 0.9% (NS) bolus infusion 1,000 mL 08-01 22:45: 00 08-02 00:08 :00 No 1000mL at 999 mL/hr, 1,000 mL, IV Piggyback, ONCE, 1 dose, On 08/01/22 at 1645, STAT [facility] levoFLOXaci n in D5W (LEVAQUIN) 750 mg/150 mL Piggyback 750 mg 08-01 21:30: 00 08-02 00:08 :00 No 750mg 750 mg, IV Piggyback, ONCE, 1 dose, On 08/01/22 at 1530, Administer over 90 Minutes, 150 mL
Reas on for Anti-Infec tive: Empiric Therapy for Suspected Infection< br>Empiric Therapy Site: Respirator y
Durat ion of therapy: 72 hours [facility] LORazepam (ATIVAN) injection 1 mg 08-01 20:45: 00 08-01 20:41 :00 No 1mg 1 mg, Slow IV Push, ONCE, 1 dose, On 08/01/22 at 1445, STAT [facility] ipratropium -albuteroL (DUONEB) 0.5 mg-3 mg(2.5 mg base)/3 mL nebulizer solution 3 mL 08-01 20:04: 00 08-01 20:05 :00 No 3mL 3 mL, Inhalation , ONCE NOW, 1 dose, On 08/01/22 at 1415, Routine [facility] methylpredn isolone sod succ (SOLU-MEDRO L) injection 125 mg 08-01 18:00: 00 08-02 21:36 :45 No 125mg 125 mg, Intravenou s, Q6H, First dose on 08/01/22 at 1200, Until Discontinu ed, Routine [facility] ipratropium -albuteroL (DUONEB) 0.5 mg-3 mg(2.5 mg base)/3 mL nebulizer solution 3 mL 08-01 18:00: 00 08-02 19:10 :08 No 3mL 3 mL, Inhalation , QID, First dose on 08/01/22 at 1200, Until Discontinu ed, Routine [facility] chlorphenir amine 4 mg tablet 2-04 00:00: 00 Yes [id number] 4mg Take 1 tablet by mouth every 6 (six) hours as needed for Allergies or Runny nose. [facility] methylpredn isolone sod succ (SOLU-MEDRO [...] 24 hr tablet 07-07 00:00: 00 Yes [id number] 1{tbl} Take 1 tablet by mouth in the morning. [facility] montelukast 10 mg tablet 07-07 00:00: 00 Yes [id number] 10mg Take 1 tablet by mouth every 24 (twenty-fo ur) hours as needed (symptoms) . [facility] albuterol 90 mcg/actuati on inhaler 07-07 00:00: 00 Yes [id number] 2{puff} Inhale 2 Puffs every 6 (six) hours as needed for Wheezing or Shortness of Breath. [facility] benzonatate 100 mg capsule 07-07 00:00: 00 Yes [id number] 100mg Take 1 capsule by mouth 3 (three) times daily as needed for Cough. [facility] methylPREDN ISolone 4 mg tablets 07-07 00:00: 00 08-06 00:00 :00 No [id number] Take by mouth SEE-INSTRU CTIONS. follow package directions [facility] doxycycline hyclate 100 mg capsule 07-07 00:00: 00 07-18 05:59 :00 No [id number] 100mg Take 1 capsule by mouth in the morning and 1 capsule in the evening. Do all this for 10 days. [facility] No known medications 07-09 12:45: 54 No No known medication [facility] metoprolol succinate XL 25 mg 24 hr tablet 10-04 00:00: 00 Yes 25mg Take 25 mg by mouth daily. [facility] traMADoL 50 mg tablet 09-06 00:00: 00 Yes 50mg Take 50 mg by mouth 3 (three) times daily. [facility] Methylpredn isolone 4 mg tablet 09-06 00:00: 00 07-07 00:00 :00 No TAKE 6 TABLETS ON DAY 1 THEN TAKE 5 TABLETS ON DAY 2 THEN TAKE 4 TABLETS ON DAY 3 THEN TAKE 3 TABLETS ON DAY 4 THEN TAKE 2 TABLETS ON DAY 5 [facility] lisinopriL 10 mg tablet 03 00:00: 00 Yes TAKE 1 TABLET BY MOUTH ONCE DAILY IN THE EVENING DIRECTED [facility] fluticasone 50 mcg/actuati on nasal spray 03-18 00:00: 00 Yes [id number] 2{spray } Use 2 Sprays in each nostril daily. [facility] loratadine 10 mg tablet 03-18 00:00: 00 Yes [id number] 10mg Take 1 tablet by mouth daily. [facility] LORazepam 0.5 mg tablet 03-04 09:40: 58 Yes .5mg Take 0.5 mg by mouth 2 (two) times daily. [facility] atorvastati n 80 mg tablet 03-04 09:40: 58 Yes 80mg Take 80 mg by mouth at bedtime. [facility] clopidogrel (PLAVIX) 75 mg tablet 01-14 10:02: 40 Yes 75mg Take 75 mg by mouth daily. [facility] aspirin 81 mg EC tablet 01-14 10:02: 40 Yes 81mg Take 81 mg by mouth daily. [facility] Vit A,C,E-Zinc- Copper (ICAPS AREDS) 14,320-226- 200 unit-mg-uni t Cap 01-14 10:02: 40 Yes 2{capsu le} Take 2 capsules by mouth daily. [facility] Vital Signs Vital Name Observation Time Observation Value Comments S ource Respiratory rate 2022-08-06 13:56:00 18 /min [facility] Oxygen saturation in Arterial blood by Pulse oximetry 2022-08-06 13:56:00 99 /min [facility] Systolic blood pressure 2022-08-06 13:33:00 119 mm[Hg] [facility] Diastolic blood pressure 2022-08-06 13:33:00 90 mm[Hg] [facility] Heart rate 2022-08-06 13:33:00 97 /min [facility] Body temperature 2022-08-06 13:33:00 36.22 Stacie [facility] Body weight 2022-08-06 09:40:[address] [facility] BMI 2022-08-06 09:40:00 29.28 kg/m2 [facility] Body height 2022-08-02 04:00:[address] [facility] Systolic blood pressure 2022-07-07 17:46:00 105 mm[Hg] [facility] Diastolic blood pressure 2022-07-07 17:46:00 61 mm[Hg] [facility] Heart rate 2022-07-07 17:46:00 98 /min [facility] Respiratory rate 2022-07-07 17:46:00 20 /min [facility] Oxygen saturation in Arterial blood by Pulse oximetry 2022-07-07 17:46:00 98 /min [place] [facility] Body temperature 2022-07-07 15:29:00 37.11 Stacie [facility] Body height 2022-07-07 15:29:[address] [facility] Body weight 2022-07-07 15:29:[address] [facility] BMI 2022-07-07 15:29:00 30.30 kg/m2 [facility] Procedures Procedure Date / Time Performed Performing Clinician Source [id number] 2023-08-24 00:00:00 [facility] [id number] 2023-08-24 00:00:00 [facility] [id number] 2023-08-24 00:00:00 [facility] [id number] 2023-08-17 00:00:00 [facility] [id number] 2023-08-17 00:00:00 [facility] [id number] 2023-08-17 00:00:00 [facility] [id number] 2023-08-17 00:00:00 [facility] [id number] 2023-08-17 00:00:00 [facility] [id number] 2023-08-17 00:00:00 [facility] [id number] 2023-08-17 00:00:00 [facility] [id number] 2023-08-17 00:00:00 [facility] [id number] 2023-08-17 00:00:00 [facility] [id number] 2023-08-17 00:00:00 [facility] [id number] 2023-08-17 00:00:00 [facility] [id number] 2023-08-17 00:00:00 [facility] [id number] 2023-08-17 00:00:00 [facility] FL BARIUM SWALLOW ESOPHAGUS 2023-06-10 15:42:00 Anne Candelaria [facility] ASSIGNMENT OF BENEFITS 2023-06-10 15:06:13 Gely r Unassigned, [place] [facility] AUTHORIZATION FOR RELEASE OF PHI 2022-08-20 06:01:00 Doctor Unassigned, [place] [facility] PHOSPHORUS 2022-08-06 10:05:00 [facility] MAGNESIUM 2022-08-06 10:05:00 He Sylvester [facility] BASIC METABOLIC PANEL (NA, K, CL, CO2, GLUCOSE, BUN, CREATININE, CA) 2022-08-06 10:05:00 Adri Castillo [facility] BASIC METABOLIC PANEL (NA, K, CL, CO2, GLUCOSE, BUN, CREATININE, CA) 2022-08-05 11:24:00 Vasile Mcdonald [facility] CBC WITH DIFF 2022-08-05 11:24:00 [facility] 2022-08-04 09:23:00 Vasile Mcdonald Uni [facility] BASIC METABOLIC PANEL (NA, K, CL, CO2, GLUCOSE, BUN, CREATININE, CA) 2022-08-04 09:23:00 Vasile Mcdonald [facility] CBC WITH DIFF 2022-08-04 09:23:00 Vasile Mcdonald Un [facility] N-TERMINAL PRO-BNP 2022-08-04 09:23:00 Shaun Mcdonald [facility] COVID-19 (ID NOW RAPID TESTING) 2022-08-03 21:12:00 Vasile Mcdonald [facility] LAB ONLY COVID INTERPRETATION 2022-08-03 21:12:00 Vasile Mcdonald [facility] POCT GLUCOSE (AUTOMATED) 2022-08-03 17:59:00 Taty Juarez [facility] POCT GLUCOSE (AUTOMATED) 2022-08-03 14:04:00 Taty Juarez [facility] MAGNESIUM 2022-08-03 09:47:00 Bharati Juarez [facility] BASIC METABOLIC PANEL (NA, K, CL, CO2, GLUCOSE, BUN, CREATININE, CA) 2022-08-03 09:47:00 Bharati Juarez [facility] CBC WITH DIFF 2022-08-03 09:47:00 Bharati Juarez [facility] N-TERMINAL PRO-BNP 2022-08-03 09:47:00 Eddie Ahuja [facility] TRANSTHORACIC ECHO (TTE) COMPLETE 2022-08-02 15:09:00 Bharati Juarez [facility] CT THORAX WO CONTRAST 2022-08-01 21:06:39 Ashish Wiley [facility] XR CHEST 1 VW 2022-08-01 18:32:[address] [facility] HB ECG ROUTINE & RHYTHM STRIP 2022-08-01 18:20:26 Singer [facility] TROPONIN I 2022-08-01 17:55:00 Singer [facility] COMP. METABOLIC PANEL (34548) 2022-08-01 17:55:00 Singer [facility] CBC WITH DIFF 2022-08-01 17:55:[address] [facility] N-TERMINAL PRO-BNP 2022-08-01 17:55:00 Singer [facility] CONSENT/REFUSAL FOR DIAGNOSIS AND TREATMENT 2022-08-01 17:07:49 Doctor Unassigned, [place] [facility] XR CHEST 1 VW 2022-07-07 16:51:[address] [facility] TROPONIN I 2022-07-07 16:01:00 Jesu Radford [facility] COMP. METABOLIC PANEL (35799) 2022-07-07 16:01:00 [facility]FF 2022-07-07 16:01:[address] [facility] PROTHROMBIN TIME / INR 2022-07-07 16:01:00 Ozzie Radford [facility] ACTIVATED PARTIAL THRMPLAS OSIEL 2022-07-07 16:01:00 Jesu Radford [facility] RAPID INFLUENZA A/B 2022-07-07 16:01:00 Ni Radford [facility] N-TERMINAL PRO-BNP 2022-07-07 16:01:00 Jesu Radford [facility] COVID-19 (ID NOW RAPID TESTING) 2022-07-07 16:01:00 Jesu Radford [facility] NOTICE OF PRIVACY PRACTICES 2022-07-07 15:22:56 Doctor Unassigned, [place] [facility] CONSENT/REFUSAL FOR DIAGNOSIS AND TREATMENT 2022-07-07 15:19:49 Doctor Unassigned, [place] [facility] Encounters Start Date/Time End Date/Time Encounter Type Admission Type Attending Clinicians Care Facility Care Department Encounter ID Source 2022-02-19 11:44:08 Outpatient ANNE COTTON [facility] [id number] [facility] 2021-06-30 12:23:[address] [facility] [id number] [facility] 2021-01-28 14:02:50 Outpatient TA PEREZ [facility] [id number] [facility] 2021-01-28 14:01:[address] [facility] [id number] [facility] 2023-12-24 11:29:00 2023-12-24 11:29:00 Outpatient [place] [facility] RAD [id number] [facility] 2023-11-29 10:30:00 2023-11-30 07:43:02 Office Visit TA PEREZ [facility] 1.2.840.114 350.1.13.58 9.2.7.2.686 [id number] [facility] 2023-11-29 09:30:00 2023-11-30 07:41:[address] [facility] [id number] [facility] 2023-11-29 09:00:00 2023-11-30 07:41:[address] [facility] [id number] [facility] 2023-11-02 07:45:00 2023-11-02 07:45:00 Outpatient TA PEREZ [facility] [id number] [facility] 2023-11-01 11:15:00 2023-11-01 11:15:[address] [facility] [id number] [facility] 2023-11-01 09:00:00 2023-11-01 09:00:[address] [facility] [id number] [facility] 2023-10-08 00:00:00 2023-10-08 00:00:00 Outpatient YOUSUF_A1 [facility] [id number] Dr[address] Marianne Mckay 2023-08-27 15:46:00 2023-09-10 11:37:00 Inpatient 3 ABIODUN LOW ENCPL CRD [id number] [facility] 2023-08-30 09:30:00 2023-08-30 09:30:[address] [facility] [id number] [facility] 2023-08-30 09:00:00 2023-08-30 09:00:[address] [facility] [id number] [facility] 2023-07-31 05:26:00 2023-07-31 05:26:00 Outpatient Vibha Herbert [facility] [id number] [facility] 2023-06-10 09:06:24 2023-06-10 23:59:00 Outpatient ANNE COTTON [facility] [id number] [facility] 2023-06-10 09:06:24 2023-06-10 23:59:00 Hospital Encounter Anne Nayak [facility] 1.2.840.114 350.1.13.10 4.2.7.2.686 [id number] [facility] 2023-06-10 00:00:00 2023-06-10 00:00:00 Orders Only Doctor Unassigned, [place] [facility] 1.2.840.114 350.1.13.10 4.2.7.2.686 [id number] [facility] 2023-06-09 00:00:00 2023-06-09 00:00:00 Outpatient R ANNE NAYAK [facility] [id number] [facility] 2022-08-20 00:00:00 2022-08-20 00:00:00 Orders Only Doctor Unassigned, [place] [facility] 1.2.840.114 350.1.13.10 4.2.7.2.686 [id number] [facility] 2022-08-07 00:00:00 2022-08-07 00:00:00 Transition of Care Mike Lily Jessica TERRY ARMSTRONG 1.2.840.114 350.1.13.10 4.2.7.2.686 [id number] [facility] 2022-08-01 11:24:00 2022-08-06 12:12:00 Inpatient X LONNIEGINO HE [facility] [id number] [facility] 2022-08-01 11:24:00 2022-08-06 12:12:00 Hospital Encounter John Wiley David Abdullah [facility] 1.2840.114 350.1.13.10 4.2.7.2.686 [id number] [facility] 2022-07-07 09:30:00 2022-07-07 11:58:00 Emergency X JESU RADFORD [facility] ERT [id number] [facility] 2022-07-07 09:30:00 2022-07-07 11:58:00 Emergency Jesu Radford [facility] 1.2840.114 350.1.13.10 4.2.7.2.686 [id number] [facility] 2022-02-27 08:15:00 2022-02-27 08:15:00 Outpatient R ANNE NAYAK [facility] [id number] [facility] 2022-01-26 14:40:00 2022-01-26 14:40:00 Outpatient R JADAMUNIRA [facility] [id number] [facility] 2021-07-09 07:45:00 2021-07-09 08:33:53 Telephonic Encounter Ta Perez [facility] 1.2.840.114 350.1.13.58 9.2.7.2.686 [id number] [facility] 2020-10-24 09:30:00 2020-10-24 09:30:00 Outpatient MARILYN WAKEFIELD [facility] [id number] [facility] 2020-10-16 13:45:00 2020-10-16 13:45:00 Outpatient Charlene DENNY MARILYN [facility] [id number] [facility] 2019-03-10 00:00:00 2019-03-10 00:00:00 Orders Only Doctor Unassigned, [place] 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 1.2.840.114 350.1.13.10 4.2.7.2.686 [id number] 2010-09-03 00:00:00 2010-09-03 11:51:48 Outpatient [facility] [id number] [facility] Results Test Description Test Time Test Comments Results Result Co mments Source BLOOD GAS [id number] 20:37:00* Test Item Value Reference Range Interpretation Comme nts ARTERIAL BLOOD GAS PH (test code = PHA) 7.41 7.35-7.45 N ARTERIAL BLOOD GAS PCO2 (test code = PCO2A) 31.7 mmHg 35.0-45.0 L ARTERIAL BLOOD GAS PO2 (test code = PO2A) 537.1 mmHg 80.0-95.0 H BICARBONATE TOTAL HCO3 (test code = HCO3) 19.7 mmol/L 22.0-24.0 L BASE EXCESS (test code = ZAIN) -4.0 mmol/L See_Comment L [Automated message] The system which generated this result transmitted reference range: (+/-)2.0. The reference range was not used to interpret this result as normal/abnormal. ABG O2 SATURATION (test code = SATA) 99.7 % 95.0-100.0 N ARTERIAL FIO2 (test code = FIO2A) 50.0 % ABG VENT MODE (test code = MODEA) Ventilator ALLENS TEST (test code = ALLENS) NOT APPLICABLE SODIUM (POC) (test code = NA/ABG) 137 mmol/L 135-147 N POTASSIUM (POC) (test code = K/ABG) 4.11 mmol/L 3.6-5.2 N CHLORIDE (ARTERIAL) (test code = CL/ABG) 108 mmol/L 98-108 N GLUCOSE (test code = GLU/ABG) 140 mg/dL 70-104 H IONIZED CALCIUM (test code = CAIABG) 1.43 mmol/L 1.12-1.32 H POC LACTIC ACID (test code = POCLAC) 1.45 mmol/L 0.5-2.2 N TOTAL HGB (test code = THB) 12.1 g/dL 12.0-16.0 N OXYHEMOGLOBIN (test code = OOHGBT) 99.5 % 92.0-98.0 H CARBOXYHEMOGLOBIN (test code = HOHGBT) 0.1 % 0-5.0 N METHEMOGLOBIN (test code = METHGB) <0.8 % 0-1.5 N HHb (test code = HHB) 0.3 % TCO2 ARTERIAL (test code = TCO2A) 20.7 MMOL/L 24-30 L BLOOD GAS [id number] 08:47:00* Test Item Value Reference Range Interpretation Comme nts ARTERIAL BLOOD GAS PH (test code = PHA) 7.37 7.35-7.45 N ARTERIAL BLOOD GAS PCO2 (test code = PCO2A) 38.5 mmHg 35.0-45.0 N ARTERIAL BLOOD GAS PO2 (test code = PO2A) 153.1 mmHg 80.0-95.0 H BICARBONATE TOTAL HCO3 (test code = HCO3) 21.7 mmol/L 22.0-24.0 L BASE EXCESS (test code = ZAIN) -3.3 mmol/L See_Comment L [Automated message] The system which generated this result transmitted reference range: (+/-)2.0. The reference range was not used to interpret this result as normal/abnormal. ABG O2 SATURATION (test code = SATA) 98.9 % 95.0-100.0 N ARTERIAL FIO2 (test code = FIO2A) 40.0 % ABG VENT MODE (test code = MODEA) Ventilator ALLENS TEST (test code = ALLENS) NOT APPLICABLE SODIUM (POC) (test code = NA/ABG) 139 mmol/L 135-147 N POTASSIUM (POC) (test code = K/ABG) 4.26 mmol/L 3.6-5.2 N CHLORIDE (ARTERIAL) (test code = CL/ABG) 106 mmol/L 98-108 N GLUCOSE (test code = GLU/ABG) 138 mg/dL 70-104 H IONIZED CALCIUM (test code = CAIABG) 1.32 mmol/L 1.12-1.32 N POC LACTIC ACID (test code = POCLAC) 1.54 mmol/L 0.5-2.2 N TOTAL HGB (test code = THB) 11.6 g/dL 12.0-16.0 L OXYHEMOGLOBIN (test code = OOHGBT) 98.3 % 92.0-98.0 H CARBOXYHEMOGLOBIN (test code = HOHGBT) 0.3 % 0-5.0 N METHEMOGLOBIN (test code = METHGB) <0.8 % 0-1.5 N HHb (test code = HHB) 1.1 % TCO2 ARTERIAL (test code = TCO2A) 22.8 MMOL/L 24-30 L BLOOD GAS [id number] 08:46:00* Test Item Value Reference Range Interpretation [...] MMOL/L 24-30 L - XR CHEST 2 [id number] 12:29:00 [facility] 1935 Sex: FPatient Name: ROCK GOMEZ Unit No: [id number] EXAMS: CPT CODE: [id number] XR CHEST 2 V 38403 Location Code: W1 EXAMINATION: - XR CHEST [...] signed by: Joey Rogel MD CC: King Corrales MD; Marianne Mckay MD Technologist: Javi Chandra Fluoro Time: DAP (Gy m2): Air Kerma (mGy): Trscr Dt/Tm: 12/24/2023 (1229) by:[email or web address] Printed Date/Time: 12/24/2023 (6562) Name: [facility] Phys: King Montilla MD [address] : 1935 Age: 88 Sex: [place] [address] Loc: MARIO Exam Date: 12/24/2023 Status: REG CLI PH: FAX: PAGE 1 Signed ReportBASIC MET [id number] 04:03:00* Test Item Value Reference Range Interpretation Comme nts GLUCOSE (test code = 99433204) 94 mg/dL 65-99 N Fasting referenc e interval UREA NITROGEN (BUN) (test code = 50252669) 18 mg/dL 7-25 N CREATININE (test code = 03596521) 0.68 mg/dL 0.60-0.95 N EGFR (test code = 05498108) 84 mL/min/1.73m2 >=60 N BUN/CREATININE RATIO (test code = 74651628) SEE NOTE: (calc) 6-22 N Not Reported: BUN and Creatinine are within reference range. SODIUM (test code = 96569640) 138 mmol/L 135-146 N POTASSIUM (test code = 40486351) 4.4 mmol/L 3.5-5.3 N CHLORIDE (test code = 44504590) 104 mmol/L 98-110 N CARBON DIOXIDE (test code = 56883817) 21 mmol/L 20-32 N CALCIUM (test code = 74449146) 8.9 mg/dL 8.6-10.4 N [facility] [id number] 04:03:00* Test Item Value Reference Range Interpretation Comme nts MAGNESIUM (test code = 77285594) 1.6 mg/dL 1.5-2.5 N [facility]2023-[facility]-07 04:03:00* Test Item Value Reference Range Interpretation Comme nts WHITE BLOOD CELL COUNT (test code = 77998551) 5.0 Thousand/uL 3.8-10.8 N RED BLOOD CELL COUNT (test code = 55650074) 3.38 Million/uL 3.80-5.10 L HEMOGLOBIN (test code = 70009207) 9.7 g/dL 11.7-15.5 L HEMATOCRIT (test code = 59127217) 30.1 % 35.0-45.0 L MCV (test code = 34618548) 89.1 fL 80.0-100.0 N MCH (test code = 54979091) 28.7 pg 27.0-33.0 N MCHC (test code = 53827363) 32.2 g/dL 32.0-36.0 N RDW (test code = 22169888) 14.4 % 11.0-15.0 N PLATELET COUNT (test code = 82050500) 300 Thousand/uL 140-400 N MPV (test code = 95844663) 9.8 fL 7.5-12.5 N ABSOLUTE NEUTROPHILS (test code = 61755630) 2130 cells/uL 3548-3408 N ABSOLUTE LYMPHOCYTES (test code = 92379485) 2050 cells/uL 850-3900 N ABSOLUTE MONOCYTES (test cod e = 27837961) 500 cells/uL 200-950 N ABSOLUTE EOSINOPHILS (test code = 58954170) 280 cells/uL 15-500 N ABSOLUTE BASOPHILS (test cod e = 50857056) 40 cells/uL 0-200 N NEUTROPHILS (test code = 56608287) 42.6 % N LYMPHOCYTES (test code = 51450662) 41.0 % N MONOCYTES (test code = 22963219) 10.0 % N EOSINOPHILS (test code = 18015273) 5.6 % N BASOPHILS (test code = 74128024) 0.8 % N [facility] [id number] 14:52:00* Test Item Value Reference Range Interpretation Comme nts GLUCOSE (test code = 50016409) 82 mg/dL 65-99 N Fasting referenc e interval UREA NITROGEN (BUN) (test code = 50012957) 22 mg/dL 7-25 N CREATININE (test code = 99566393) 0.88 mg/dL 0.60-0.95 N EGFR (test code = 02318866) 64 mL/min/1.73m2 >=60 N BUN/CREATININE RATIO (test code = 57339455) SEE NOTE: (calc) 6-22 N Not Reported: BUN and Creatinine are within reference range. SODIUM (test code = 10588255) 135 mmol/L 135-146 N POTASSIUM (test code = 81896757) 4.5 mmol/L 3.5-5.3 N CHLORIDE (test code = 38146189) 97 mmol/L 98-110 L CARBON DIOXIDE (test code = 85652134) 23 mmol/L 20-32 N CALCIUM (test code = 96014339) 9.6 mg/dL 8.6-10.4 N [facility] [id number] 14:52:00* Test Item Value Reference Range Interpretation Comme nts MAGNESIUM (test code = 66226802) 1.3 mg/dL 1.5-2.5 L [facility]FF[facility]PLT)2023-08-30 14:52:00* Test Item Value Reference Range Interpretation Comme nts WHITE BLOOD CELL COUNT (test code = 21441173) 10.4 Thousand/uL 3.8-10.8 N RED BLOOD CELL COUNT (test code = 10237293) 3.65 Million/uL 3.80-5.10 L HEMOGLOBIN (test code = 09522238) 10.3 g/dL 11.7-15.5 L HEMATOCRIT (test code = 40693351) 32.0 % 35.0-45.0 L MCV (test code = 53585257) 87.7 fL 80.0-100.0 N MCH (test code = 30956787) 28.2 pg 27.0-33.0 N MCHC (test code = 65914632) 32.2 g/dL 32.0-36.0 N RDW (test code = 68004623) 14.3 % 11.0-15.0 N PLATELET COUNT (test code = 18867766) 462 Thousand/uL 140-400 H MPV (test code = 63244520) 9.4 fL 7.5-12.5 N ABSOLUTE NEUTROPHILS (test code = 75374605) 6656 cells/uL 4380-0449 N ABSOLUTE LYMPHOCYTES (test code = 74981664) 2579 cells/uL 850-3900 N ABSOLUTE MONOCYTES (test code = 43250643) 842 cells/uL 200-950 N ABSOLUTE EOSINOPHILS (test code = 51964807) 250 cells/uL 15-500 N ABSOLUTE BASOPHILS (test code = 92524730) 73 cells/uL 0-200 N NEUTROPHILS (test code = 50686113) 64 % N LYMPHOCYTES (test code = 95051199) 24.8 % N MONOCYTES (test code = 05679199) 8.1 % N EOSINOPHILS (test code = 55318728) 2.4 % N BASOPHILS (test code = 74455467) 0.7 % N [facility] META [id number] 13:03:00* Test Item Value Reference Range Interpretation Comme nts GLUCOSE (test code = 06097640) 93 mg/dL 65-99 N Fasting referenc e interval UREA NITROGEN (BUN) (test code = 49842722) 15 mg/dL 7-25 N CREATININE (test code = 80286395) 0.61 mg/dL 0.60-0.95 N EGFR (test code = 94659616) 86 mL/min/1.73m2 >=60 N BUN/CREATININE RATIO (test code = 95442364) SEE NOTE: (calc) 6-22 N Not Reported: BUN and Creatinine are within reference range. SODIUM (test code = 88323090) 136 mmol/L 135-146 N POTASSIUM (test code = 09964945) 4.4 mmol/L 3.5-5.3 N CHLORIDE (test code = 52224895) 105 mmol/L 98-110 N CARBON DIOXIDE (test code = 18196666) 21 mmol/L 20-32 N CALCIUM (test code = 45279746) 8.7 mg/dL 8.6-10.4 N PROTEIN, TOTAL (test code = 16799495) 5.8 g/dL 6.1-8.1 L ALBUMIN (test code = 28835400) 3.4 g/dL 3.6-5.1 L GLOBULIN (test code = 01556688) 2.4 g/dL (calc) 1.9-3.7 N ALBUMIN/GLOBULIN RATIO (test code = 44337180) 1.4 (calc) 1.0-2.5 N BILIRUBIN, TOTAL (test code = 55470652) 0.6 mg/dL 0.2-1.2 N ALKALINE PHOSPHATASE (test code = 14627060) 106 U/L 37-153 N AST (test code = 26572753) 17 U/L 10-35 N ALT (test code = 50593323) 8 U/L 6-29 N [facility]ITAL[facility] TIME WITH [id number] 13:03:00* Test Item Value Reference Range Interpretation Comme nts INR (test code = 57768365) 1.1 N Reference Range 0.9-1.1Moderate-intensity Warfarin Therapy 2.0-3.0Higher-intensity Warfarin Therapy 3.0-4.0 PT (test code = 73821435) 11.2 sec 9.0-11.5 N For additional information, please refer [email or web address] (This link is being provided for informational/educational purposes only.) [facility]2023-08-28 13:03:00* Test Item Value Reference Range Interpretation Comme nts WHITE BLOOD CELL COUNT (test code = 00874207) 7.9 Thousand/uL 3.8-10.8 N RED BLOOD CELL COUNT (test code = 80212996) 3.18 Million/uL 3.80-5.10 L HEMOGLOBIN (test code = 71836520) 9.2 g/dL 11.7-15.5 L HEMATOCRIT (test code = 04244698) 28.1 % 35.0-45.0 L MCV (test code = 88814249) 88.4 fL 80.0-100.0 N MCH (test code = 45009347) 28.9 pg 27.0-33.0 N MCHC (test code = 83009730) 32.7 g/dL 32.0-36.0 N RDW (test code = 49040025) 14.1 % 11.0-15.0 N PLATELET COUNT (test code = 50344978) 378 Thousand/uL 140-400 N MPV (test code = 78434733) 9.4 fL 7.5-12.5 N ABSOLUTE NEUTROPHILS (test code = 79930333) 4938 cells/uL 5891-9054 N ABSOLUTE LYMPHOCYTES (test code = 73053648) 1975 cells/uL 850-3900 N ABSOLUTE MONOCYTES (test cod e = 91128855) 616 cells/uL 200-950 N ABSOLUTE EOSINOPHILS (test code = 80495644) 300 cells/uL 15-500 N ABSOLUTE BASOPHILS (test cod e = 21678940) 71 cells/uL 0-200 N NEUTROPHILS (test code = 30845693) 62.5 % N LYMPHOCYTES (test code = 52412009) 25.0 % N MONOCYTES (test code = 23004319) 7.8 % N EOSINOPHILS (test code = 95891206) 3.8 % N BASOPHILS (test code = 72775262) 0.9 % N [facility]- XR CHEST 1 [id number] 09:26:00 [facility] 1935 Sex: FPatient Name: ROCK GOMEZ Unit No: [id number] EXAMS: CPT CODE: [id number] XR CHEST 1 V 64169 Chest Radiograph History: Shortness of breath Comparison: August 25, 2023 Location: [facility] A single frontal view of the chest [...] and signed by: JIGAR DAWN M.D. CC: Noble GARCIA; Marianne Mckay MD Technologist: Rehan Durand Time: DAP (Gy m2): Air Kerma (mGy): Trscr Dt/Tm: 08/27/2023 (925) by:[email or web address] Printed Date/Time: 08/27/2023 (928) Name: [facility] Phys: Noble Rivera [address] : 1935 Age: 88 Sex: F [place] [address] Loc: P.0405 A Exam Date: 08/27/2023 Status: ADM IN PH: FAX: PAGE 1 Signed ReportBASIC METABOLIC [id number] 06:01:00* Test Item Value Reference Range Interpretation [...] CA) 9.9 mg/dL 8.7-10.4 ADD ON TEST? [id number] 06:01:00* Test Item Value Reference Range Interpretation Comme nts PHOSPHOROUS (test code = PHOS) 3.9 mg/dL 2.4-5.1 N ADD ON TEST? [id number] 06:01:00* Test Item Value Reference Range Interpretation Comme nts MAGNESIUM (test code = MAG) 1.9 mg/dL 1.6-2.6 N ADD ON TEST? YesCBC W/AUTO [id number] 05:44:00* Test Item Value Reference Range Interpretation [...] BA#) 0.06 x10 3/uL 0.0-0.20 N [id number] 14:09:00 [facility] 1935 Sex: FPatient Name: ROCK GOMEZ Unit No: [id number] EXAMS: CPT CODE: [id number] US CHST W/MEDIASTINUM 31279 EXAM: - US CHST W/MEDIASTINUM LOCATION: A1 HISTORY: Quantify left pleural effusion COMPARISON: None TECHNIQUE: Grayscale and color Doppler images of the lower chest were obtained to evaluate for pleural effusions. FINDINGS/ IMPRESSION: Trace bilateral pleural effusions identified. at 1409 Reported and signed by: SHANNAN NGUYEN M.D. CC: Estrada GARCIA; Marianne Mckay MD Technologist: Sri Vargas Probe: Trscr Dt/Tm: 08/25/2023 (1409) by:[email or web address] Printed Date/Time: 08/25/2023 (3403) Name: [facility] Phys: Estrada Woods [address] : 1935 Age: 88 Sex: [place] [address] Loc: P.[phone] 1 Exam Date: 08/25/2023 Status: ADM IN PH: FAX: PAGE 1 Signed Report- XR CHEST [id number] 08:32:00[facility] 1935 Sex: FPatient Name: [facility] Unit No: [id number] EXAMS: CPT CODE: [id number] XR CHEST 1 V [id number] EXAM: XR Chest 1 View INDICATION: NEW [...] prior. at 0832 Reported and signed by: SHANNAN NGUYEN M.D. CC: Bharati Hodges MD; Marianne Mckay MD Technologist: CHINMAY LITTLE (R) Fluoro Time:DAP (Gy m2): Air Kerma (mGy): Trscr Dt/Tm: 08/25/2023 (0832) by:[email or web address] Printed Date/Time: 08/25/2023 (0835) Name: [facility] Phys: Bharati Mccurdy MD [address]OB: 1935 Age: 88 Sex: [place] [address] Loc: P.0307 1 Exam Date: 07/30 Status: ADM IN PH: FAX: PAGE 1 [...] 8.5 mg/dL 8.7-10.4 L ADD ON TEST? [id number] 05:49:00* Test Item Value Reference Range Interpretation Comme nts PHOSPHOROUS (test code = PHOS) 3.6 mg/dL 2.4-5.1 N ADD ON TEST? [id number] 05:49:00* Test Item Value Reference Range Interpretation Comme nts MAGNESIUM (test code = MAG) 1.9 mg/dL 1.6-2.6 N ADD ON TEST? YesCBC W/AUTO [id number] 05:24:00* Test Item Value Reference Range Interpretation [...] 3/uL 0.0-0.20 N - XR CHEST 1 [id number] 16:17:00 [facility] 1935 Sex: FPatient Name: [facility]OMEZ Unit No: [id number] EXAMS: CPT CODE: [id number] XR CHEST 1 V 05097 EXAM: - XR CHEST 1 V DATE: [...] in expected position. No other significant change. at 1617 Reported and signed by: Ruddy Hernandes MD CC: Sudarshan Alexis MD; Marianne Mckay MD Technologist: Rehan Durand Time: DAP (Gy m2): Air Kerma (mGy): Trscr D t/Tm: 08/24/2023 (1617) by:[email or web address] Printed Date/Time: 08/24/2023 (1620) Name: [facility] Phys: TEQUILAAZSudarshan Luna MD [address] : 1935 Age: 88 Sex: [place] [address] Loc: P.0307 1 Exam Date: 08/24/2023 Status: ADM IN PH: FAX:PAGE 1 Signed Report- XR CHEST 1 [id number] 10:34:00 [facility] : 1935 Sex: FPatient Name: [facility]Z Unit No: [id number] EXAMS: CPT CODE: [id number] XR CHEST 1 V [id number] EXAM: XR Chest 1 View INDICATION: RESPIRATORY FAILURE LOCATION: A1 COMPARISON: Chest radiograph dated 08/22/2023 TECHNIQUE: Frontal view of the chest was obtained. FINDINGS: Left pleural effusion and underlying left basilar airspace opacities are unchanged from prior. No pneumothorax is seen. The cardiom ediastinal silhouette is unchanged. No acute osseous abnormality is identified. IMPRESSION: No significant change from prior. at 1034 Reported and signed by: SHANNAN NGUYEN M.D. CC: Isiah GARCIA; Marianne CarmonaTaty Technologist: CHINMAY LITTLE (Charlene) Fluoro Time: DAP (Gy m2): Air Kerma (mGy): Trscr Dt/Tm: 08/24/2023 (1034) by:[email or web address] Printed Date/Time: 08/24/2023 (1037) Name: [facility] Phys: Isiah [place] [address] : 1935 Age: 88 Sex: [place] [address] Loc: P.0307 1 Exam Date: 08/24/2023 Status: ADM IN PH: FAX: PAGE 1 Signed Report BASIC METABOLIC [id number] 04:23:00* Test Item Value Reference Range Interpretation [...] code = CA) 8.3 mg/dL 8.7-10.4 L [id number] 04:23:00* Test Item Value Reference Range Interpretation Comme nts PHOSPHOROUS (test code = PHOS) 3.4 mg/dL 2.4-5.1 N [id number] 04:23:00* Test Item Value Reference Range Interpretation Comme nts MAGNESIUM (test code = MAG) 1.9 mg/dL 1.6-2.6 N CBC W/AUTO [id number] 04:10:00* Test Item Value Reference Range Interpretation [...] 3/uL 0.0-0.20 N - XR CHEST 1 [id number] 09:49:00 [facility] 1935 Sex: FPatient Name: ROCK GOMEZ Unit No: [id number] EXAMS: CPT CODE: [id number] XR CHEST 1 V 87392 Chest Radiograph History: CHEST TUBE REMOVAL Comparison: August 22, 2023 Location: [facility] A single frontal view of the chest is submitted. The heart appears unchanged in size. Pulmonary vasculature is unremarkable. There is a patchy opacity in the left lung base. There is a small left pleural effusion.The bones appear unchanged. IMPRESSION: Patchy opacity left lung base. This could be due to atelectasis or pneumonia. There is a small left pleural effusion. Compared to the prior exam, there has been little change. at 0949 Reported and signed by: JIGAR DAWN M.D. CC: Cherri Arias MD; Marianne Mckay MD Technologist: JABARI RODRIGUEZ Fluoro Time: DAP (Gy m2): Air Kerma (mGy): Trscr Dt/Tm: 08/23/2023 (0949) by:[email or web address] Printed Date/Time: 08/23/2023 (0952) Name: [facility] Phys: BELL. Cherri Arias MD [address] : 1935 Age: 88 Sex: [place] [address] Loc: P.0307 1 Exam Date: 08/23/2023 Status: ADM IN PH: FAX: PAGE 1 Signed Report BASIC METABOLIC [id number] 03:41:00* Test Item Value Reference Range Interpretation [...] code = CA) 8.6 mg/dL 8.7-10.4 L [id number] 03:41:00* Test Item Value Reference Range Interpretation Comme nts PHOSPHOROUS (test code = PHOS) 3.8 mg/dL 2.4-5.1 N [id number] 03:41:00* Test Item Value Reference Range Interpretation Comme nts MAGNESIUM (test code = MAG) 2.2 mg/dL 1.6-2.6 N CBC W/AUTO [id number] 03:14:00* Test Item Value Reference Range Interpretation [...] 0.08 x10 3/uL 0.0-0.20 N ARTERIAL BLOOD [id number] 19:33:00* Test Item Value Reference Range Interpretation Comme [facility] ARTERIAL BLOOD GAS PH (test code = [...] TCO2A) 21.1 MMOL/L 24-30 L BLOOD GAS W/[id number] 19:31:00* Test Item Value Reference Range Interpretation Comme [facility] ARTERIAL BLOOD GAS PH (test code = [...] TCO2A) 24.2 MMOL/L 24-30 N COMPREHENSIVE METABOLIC [id number] 18:30:00* Test Item Value Reference Range Interpretation [...] code = ALKP) 86.0 U/L 46-116 N [id number] 18:30:00* Test Item Value Reference Range Interpretation Comme nts PHOSPHOROUS (test code = PHOS) 3.2 mg/dL 2.4-5.1 N [id number] 18:30:00* Test Item Value Reference Range Interpretation Comme nts MAGNESIUM (test code = MAG) 2.1 mg/dL 1.6-2.6 N - XR CHEST 1 [id number] 12:54:00 [facility] 1935 Sex: FPatient Name: ROCK GOMEZ Unit No: [id number] EXAMS: CPT CODE: [id number] XR CHEST 1 V 53695 EXAM: XR Chest 1 View INDICATION: SOB [...] Decrease in left pleural effusion with improved aerationof the left lung base. [id number] Reported and signed by: SHANNAN NGUYEN M.D. CC: Seamus Ibarra MD; Marianne Mckay MD Technologist: IRMA HAYWARD RT (R); Francia Honeycutt Fluoro Time: DAP (Gy m2): Air Kerma (mGy): Trscr Dt/Tm: 08/22/2023 (1254) by:[email or web address] Printed Date/Time: 08/22/2023 (1257) Name: [facility] Phys: Seamus Handley MD [address] : 1935 Age: 88 Sex: [place] [address] Loc: P.0307 1 Exam Date: 08/22/2023 Status: ADM IN PH: FAX: PAGE 1 Signed ReportCOMPREHENSIVE METABOLIC [id number] 12:44:00* Test Item Value Reference Range Interpretation [...] code = ALKP) 87.0 U/L 46-116 N [id number] 12:44:00* Test Item Value Reference Range Interpretation Comme nts PHOSPHOROUS (test code = PHOS) 2.2 mg/dL 2.4-5.1 L [id number] 12:44:00* Test Item Value Reference Range Interpretation Comme nts MAGNESIUM (test code = MAG) 2.2 mg/dL 1.6-2.6 N - XR CHEST 1 [id number] 11:16:00 [facility] 1935 Sex: FPatient Name: ROCK GOMEZ Unit No: [id number] EXAMS: CPT CODE: [id number] XR CHEST 1 V 00756 EXAM: XR Chest 1 View INDICATION: S/P CABG LOCATION: H50 COMPARISON: Chest radiograph dated 08/21/2023 TECHNIQUE: Frontal view of the chest was obtained. FINDINGS: Left pleural effusion and underlying left basilar airspace opacities are similar to prior. There is a right internal jugular central venouscatheter has been removed. No pneumothorax is seen. The cardiomediastinal silhouette is unchanged. No acute osseous abnormality is identified. IMPRESSION: Interval removal of right internal jugular central venous catheter, otherwise unchanged radiograph. at 1116 Reported and signed by: SHANNAN NGUYEN M.D. CC: Cherri Arias MD; Marianne Mckay MD Technologist: Ike Leavitt Fluoro Time: DAP (Gy m2): Air Kerma (mGy): Trscr Dt/Tm: 08/22/2023 (1116) by:[email or web address] Printed Date/Time: 08/22/2023 (1119) Name: [facility] Phys: BELL. Cherri Arias MD [address] : 1935 Age: 88 Sex: [place] [address] Loc: P.0307 1 Exam Date: 08/22/2023 Status: ADM IN PH:FAX: PAGE 1 Signed ReportBASIC METABOLIC [id number] 04:41:00* Test Item Value Reference Range Interpretation [...] code = CA) 8.0 mg/dL 8.7-10.4 L [id number] 04:41:00* Test Item Value Reference Range Interpretation Comme nts MAGNESIUM (test code = MAG) 1.7 mg/dL 1.6-2.6 N CBC W/AUTO [id number] 04:26:00* Test Item Value Reference Range Interpretation [...] 3/uL 0.0-0.20 N - XR CHEST 1 [id number] 08:32:00 [facility] 1935 Sex: FPatient Name: ROCK GOMEZ Unit No: [id number] EXAMS: CPT CODE: [id number] XR CHEST 1 V 21828 EXAM: XR Chest 1 View INDICATION: ICU [...] abnormality is identified. IMPRESSION: Decrease in right basilarairspace opacities, otherwise unchanged radiograph. at 0832 Reported and signed by: SHANNAN NGUYEN M.D. CC: Meir Shoemaker MD; Marianne Mckay MD Technologist: Ike Durand Time: DAP (Gy m2): Air Kerma (mGy): Trscr Dt/Tm: 08/21/2023 (0832) by:[email or web address] Printed Date/Time: 08/21/2023 (7008) Name: [facility] Phys: Meir Celaya MD [address] : 1935 Age: 88Sex: [place] [address] Loc: P.0307 1 Exam Date: 08/21/2023 Status: ADM IN PH: FAX: PAGE 1 Signed ReportBASIC METABOLIC [id number] 03:30:00* Test Item Value Reference Range Interpretation [...] code = CA) 8.7 mg/dL 8.7-10.4 N [id number] 03:30:00* Test Item Value Reference Range Interpretation Comme nts PHOSPHOROUS (test code = PHOS) 3.0 mg/dL 2.4-5.1 N [id number] 03:30:00* Test Item Value Reference Range Interpretation Comme nts MAGNESIUM (test code = MAG) 1.7 mg/dL 1.6-2.6 N CBC W/AUTO [id number] 03:22:00* Test Item Value Reference Range Interpretation [...] 0.06 x10 3/uL 0.0-0.20 N BASIC METABOLIC [id number] 13:00:00* Test Item Value Reference Range Interpretation [...] code = CA) 8.9 mg/dL 8.7-10.4 N [id number] 13:00:00* Test Item Value Reference Range Interpretation Comme nts PHOSPHOROUS (test code = PHOS) 1.6 mg/dL 2.4-5.1 L [id number] 13:00:00* Test Item Value Reference Range Interpretation Comme nts MAGNESIUM (test code = MAG) 1.6 mg/dL 1.6-2.6 N BLOOD GAS W/[id number] 10:01:00* Test Item Value Reference Range Interpretation [...] MMOL/L 24-30 N - XR CHEST 1 [id number] 08:41:00 [facility] 1935 Sex: FPatient Name: ROCK GOMEZ Unit No: [id number] EXAMS: CPT CODE: [id number] XR CHEST 1 V 04358 EXAM: XR Chest 1 View INDICATION: ICU [...] 1. Increase in right basilar airspace opacities withquestionable right pleural effusion. 2. Interval removal of mediastinal drain and left chest tube. 3. Otherwise unchanged radiograph. at 0841 Reported and signed by: SHANNAN NGUYEN M.D. CC: Marianne Mckay MD; Jake Turner NP Technologist: Ike Durand Time: DAP (Gy m2): Air Kerma (mGy): Trscr Dt/Tm: 08/20/2023 (840) by:[email or web address] Printed Date/Time: 08/20/2023 (0844) Name: [facility] Phys: Jake Hu NP [address] : 1935 Age: 88 Sex: [place] [address] Loc: P.0307 1 Exam Date: 08/20/2023 Status: ADM IN PH: FAX: PAGE 1 Signed ReportBASIC METABOLIC [id number] 04:11:00* Test Item Value Reference Range Interpretation [...] code = CA) 8.7 mg/dL 8.7-10.4 N [id number] 04:11:00* Test Item Value Reference Range Interpretation Comme nts PHOSPHOROUS (test code = PHOS) 2.1 mg/dL 2.4-5.1 L [id number] 04:11:00* Test Item Value Reference Range Interpretation Comme nts MAGNESIUM (test code = MAG) 1.6 mg/dL 1.6-2.6 N CBC W/AUTO [id number] 04:00:00* Test Item Value Reference Range Interpretation [...] 3/uL 0.0-0.20 N - XR CHEST 1 [id number] 09:32:00 [facility] 1935 Sex: FPatient Name: ROCK GOMZE Unit No: [id number] EXAMS: CPT CODE: [id number] XR CHEST 1 V 12310 Location: A1 EXAM: - XR CHEST 1 V INDICATION: post CABG COMPARISON: 08/18/2023 TECHNIQUE: AP Chest FINDINGS: Lines, tubes and hardware: Redemonstration of median sternotomy wires. Interval removal of a right-sided Oberlin-Elizabeth catheter. Right-sided CVC sheath tip overlies the expected location the inferior SVC. Approximately unchanged mediastinal drain. Redemonstration of a left-sided chest tube. Lungs and pleura: Similar appearance of mild bilateral perihilar, [...] Baltazar MD; Marianne Mckay MD Technologist: CHINMAY LITTLE(Charlene) Fluoro Time: DAP (Gy m2): Air Kerma (mGy): Trscr Dt/Tm: 08/19/2023 (0932) by:[email or web address] Printed Date/Time: 08/19/2023 (3735) Name: [facility] Phys: Rachana Baltazar V [address] : 1935 Age: 88 Sex: [place] [address] Loc: P.0307 1 Exam Date: 08/19/2023 Status: ADM IN PH: FAX: PAGE 1 Signed ReportCBC W/AUTO [id number] 04:26:00* Test Item Value Reference Range Interpretation [...] 0.03 x10 3/uL 0.0-0.20 N BASIC METABOLIC [id number] 02:17:00* Test Item Value Reference Range Interpretation [...] code = CA) 8.8 mg/dL 8.7-10.4 N [id number] 02:17:00* Test Item Value Reference Range Interpretation Comme nts MAGNESIUM (test code = MAG) 1.9 mg/dL 1.6-2.6 N BLOOD GAS W/[id number] 16:30:00* Test Item Value Reference Range Interpretation [...] MMOL/L 24-30 N - XR CHEST 1 [id number] 13:42:00 [facility] 1935 Sex: FPatient Name: ROCK GOMEZ Unit No: [id number] EXAMS: CPT CODE: [id number] XR CHEST 1 V 92393 Location: A1 EXAM: - XR CHEST 1 V INDICATION: Cardiac Surgery Postop COMPARISON: 08/17/2023 TECHNIQUE: AP Chest FINDINGS: Lines, tubes and hardware: Median sternotomy wires redemonstrated. Interval removal of an endotracheal tube and enteric tube. Approximately unchanged mediastinal drain. Right-sided Oberlin- Elizabeth catheter tip overlies the expected location [...] Printed Date/Time: 08/18/2023 (1345) Name: [facility] Phys: Ce Pineda [address] : 1935 Age: 88 Sex: [place] [address] Loc: P.0307 1 Exam Date: 08/18/2023 Status: ADM IN PH: FAX: PAGE 1 Signed ReportBLOOD GAS W/[id number] 06:27:00* Test Item Value Reference Range Interpretation [...] TCO2A) 23.4 MMOL/L 24-30 L BLOOD GAS W/[id number] 06:25:00* Test Item Value Reference Range Interpretation [...] TCO2A) 23.4 MMOL/L 24-30 L VENOUS BLOOD [id number] 06:25:00* Test Item Value Reference Range Interpretation [...] VENT MODE (test code = MODEV) NC [id number] 04:01:00* Test Item Value Reference Range Interpretation Comme nts PHOSPHOROUS (test code = PHOS) 5.1 mg/dL 2.4-5.1 N BASIC METABOLIC [id number] 03:49:00* Test Item Value Reference Range Interpretation [...] CA) 8.4 mg/dL 8.7-10.4 L LIVER FUNCTION [id number] 03:49:00* Test Item Value Reference Range Interpretation [...] ode = ALKP) 61.0 U/L 46-116 N [id number] 03:49:00* Test Item Value Reference Range Interpretation Comme nts MAGNESIUM (test code = MAG) 2.0 mg/dL 1.6-2.6 N PROTHROMBIN [id number] 03:36:00* Test Item Value Reference Range Interpretation [...] systemic anticoagulation for high-risk conditions THROMBOPLASTIN TIME [id number] 03:36:00* Test Item Value Reference Range Interpretation Comme nts THROMBOPLASTIN TIME PARTIAL (test code = PTT) 23.8 secs 23.8-34.8 INTERPRETATIVE D ARMANI: Therapeutic range: Unfractionated Heparin: 60-90 seconds Argatroban: 60-90 seconds CBC W/AUTO [id number] 03:28:00* Test Item Value Reference Range Interpretation [...] 0.01 x10 3/uL 0.0-0.20 N BASIC METABOLIC [id number] 00:12:00* Test Item Value Reference Range Interpretation [...] code = CA) 8.7 mg/dL 8.7-10.4 N [id number] 00:12:00* Test Item Value Reference Range Interpretation Comme nts PHOSPHOROUS (test code = PHOS) 5.3 mg/dL 2.4-5.1 H [id number] 00:12:00* Test Item Value Reference Range Interpretation Comme nts MAGNESIUM (test code = MAG) 2.1 mg/dL 1.6-2.6 N BLOOD GAS W/[id number] 22:37:00* Test Item Value Reference Range Interpretation [...] TCO2A) 22.9 MMOL/L 24-30 L BASIC METABOLIC [id number] 18:48:00* Test Item Value Reference Range Interpretation [...] code = CA) 9.3 mg/dL 8.7-10.4 N [id number] 18:48:00* Test Item Value Reference Range Interpretation Comme nts PHOSPHOROUS (test code = PHOS) 5.0 mg/dL 2.4-5.1 N [id number] 18:48:00* Test Item Value Reference Range Interpretation Comme nts MAGNESIUM (test code = MAG) 2.4 mg/dL 1.6-2.6 N - XR ABDOMEN [id number] 15:54:00 [facility] 1935 Sex: FPatient Name: ROCK GOMEZ Unit No: [id number] EXAMS: CPT CODE: [id number] XR ABDOMEN 1V 17992 EXAM: XR ABDOMEN 1 VIEW INDICATION: OG [...] stomach. at 1554 Reported and signed by: SHANNAN NGUYEN M.D. CC: Bharati Hodges MD; Marianne Mckay MD Technologist: JABARI RODRIGUEZ Fluoro Time: DAP (Gy m2): Air Kerma (mGy): Trscr Dt/Tm: 08/17/2023 (1554) by:[email or web address] Printed Date/Time: 08/17/2023 (1557) Name: [facility] Phys: Bharati Mccurdy MD [address] : 1935 Age: 88 Sex: [place] [address] Loc: P.0307 1 Exam Date: 08/17/2023 Status: ADM IN PH: FAX: PAGE 1 Signed ReportVENOUS BLOOD [id number] 14:04:00* Test Item Value Reference Range Interpretation Comme nts VENOUS BLOOD GAS PH (test code = PHV) 7.29 7.35-7.45 L VENOUS BLOOD GAS PCO2 (test code = PCO2V) 44.8 mmHg See_Comment [Automated messa ge] The system which generated this result transmitted reference range: 46. The reference range was not used to interpret this result as normal/abnormal. VENOUS BLOOD GAS PO2 (test code = PO2V) 38.6 mmHg See_Comment [Automated messa ge] The system which generated this result transmitted reference range: 40. The reference range was not used to interpret this result as normal/abnormal. VBG HCO3 (test code = HCO3V) 21 meq/L VBG BASE EXCESS (test code = RADHA) -5.2 MMOL/L VENOUS BLOOD GAS O2 SAT (test code = O2SATV) 68 % See_Comment [Automated messa ge] The system which generated this result transmitted reference range: 75. The reference range was not used to interpret this result as normal/abnormal. VENOUS BLOOD GAS TYPE (test code = TYPEV) Venous VENOUS BLOOD GAS FIO2 (test code = FIO2V) 40.0 % VBG VENT MODE (test code = MODEV) Ventilator [id number] 14:03:00* Test Item Value Reference Range Interpretation Comme nts PHOSPHOROUS (test code = PHOS) 4.3 mg/dL 2.4-5.1 N [id number] 14:03:00* Test Item Value Reference Range Interpretation Comme nts MAGNESIUM (test code = MAG) 2.9 mg/dL 1.6-2.6 H BASIC METABOLIC [id number] 14:03:00* Test Item Value Reference Range Interpretation [...] = CA) 9.7 mg/dL 8.7-10.4 N LACTIC [id number] 13:58:00* Test Item Value Reference Range Interpretation Comme nts LACTIC ACID (test code = LACT) 0.80 mmol/L 0.5-2.0 N PROTHROMBIN [id number] 13:58:00* Test Item Value Reference Range Interpretation [...] systemic anticoagulation for high-risk conditions THROMBOPLASTIN TIME [id number] 13:58:00* Test Item Value Reference Range Interpretation Comme nts THROMBOPLASTIN TIME PARTIAL (test code = PTT) 30.7 secs 23.8-34.8 INTERPRETATIVE D ARMANI: Therapeutic range: Unfractionated Heparin: 60-90 seconds Argatroban: 60-90 seconds CBC W/AUTO [id number] 13:51:00* Test Item Value Reference Range Interpretation [...] 3/uL 0.0-0.20 N - XR CHEST 1 [id number] 13:49:00 [facility] 1935 Sex: FPatient Name: ROCK GOMEZ Unit No: [id number] EXAMS: CPT CODE: [id number] XR CHEST 1 V 51708 EXAM: XR Chest 1 View INDICATION: Cardiac [...] congestion. at 1349 Reported and signed by: SHANNAN NGUYEN M.D. CC: Ce Davidson MD; Marianne Mckay MD Technologist: JABARI RODRIGUEZ Fluoro Time: DAP (Gy m2): Air Kerma (mGy): Trscr Dt/Tm: 08/17/2023 (1349) by:[email or web address] Printed Date/Time: 08/17/2023 (2123) Name: [facility] Phys: Ce Pineda [address] : 1935 Age: 88 Sex: [place] [address] Loc: P.0307 1 Exam Date: 08/17/2023 Status: ADM IN PH: FAX: PAGE 1 Signed ReportCOAGULATION TIME [id number] 12:38:00* Test Item Value Reference Range Interpretation Comme nts COAGULATION TIME ACTIVATED ( test code = ACT) 136 SECONDS 74-137 N COAGULATION TIME [id number] 12:04:00* Test Item Value Reference Range Interpretation Comme nts COAGULATION TIME ACTIVATED ( test code = ACT) 515 SECONDS 74-137 H COAGULATION TIME [id number] 11:31:00* Test Item Value Reference Range Interpretation Comme nts COAGULATION TIME ACTIVATED ( test code = ACT) 580 SECONDS 74-137 H COAGULATION TIME [id number] 11:04:00* Test Item Value Reference Range Interpretation Comme nts COAGULATION TIME ACTIVATED ( test code = ACT) 590 SECONDS 74-137 H COAGULATION TIME [id number] 10:36:00* Test Item Value Reference Range Interpretation Comme nts COAGULATION TIME ACTIVATED ( test code = ACT) 585 SECONDS 74-137 H CBC W/AUTO [id number] 07:34:00* Test Item Value Reference Range Interpretation [...] 0.07 x10 3/uL 0.0-0.20 N COMPREHENSIVE METABOLIC [id number] 21:50:00* Test Item Value Reference Range Interpretation [...] = ALKP) 115.0 U/L 46-116 N PROTHROMBIN [id number] 21:48:00* Test Item Value Reference Range Interpretation [...] systemic anticoagulation for high-risk conditions THROMBOPLASTIN TIME [id number] 21:48:00* Test Item Value Reference Range Interpretation Comme nts THROMBOPLASTIN TIME PARTIAL (test code = PTT) 21.7 secs 23.8-34.8 L INTERPRETATIVE D ARMANI: Therapeutic range: Unfractionated Heparin: 60-90 seconds Argatroban: 60-90 seconds CBC W/AUTO [id number] 20:39:00* Test Item Value Reference Range Interpretation [...] 0.05 x10 3/uL 0.0-0.20 N CBC W/AUTO [id number] 20:39:00* Test Item Value Reference Range Interpretation [...] x10 3/uL 0.0-0.20 N - DUP EXTRACRANIAL [id number] 13:11:00 [facility] 1935 Sex: FPatient Name: ROCK GOMEZ Unit No: [id number] EXAMS: CPT CODE: [id number] DUP EXTRACRANIAL JERMAINE 10367 Location: C3 EXAM: - DUP EXTRACRANIAL JERMAINE [...] >100cm/sec, ICA:CCA ratio >4 REFERENCE: Radiology. 2003 229:340- 346. Carotid Artery Stenosis: Dowling-scale and Doppler US diagnosis- Society of Radiologists in Ultrasound Consensus Name: [facility] Phys: King Ndiaye MD [address] : 1935 Age: 88 Sex: F [place] [address] Loc: P.0405 A Exam Date: 08/16/2023 Status: ADM IN PH: FAX: PAGE 1 Signed Report (CONTINUED) Patient Name: ROCK GOMEZ Unit No: [id number] EXAMS: CPT CODE: [id number] DUP EXTRACRANIAL JERMAINE 73990 (Continued) Conference. Milan EG, Filemon CB, Charla GL, et. al. at 1311 Reported and signed by: FIOR OTT M.D. CC: King Corrales MD; Marianne Mckay MD Technologist: LIAT CHAN RDMS, AB Probe: Trscr Dt/Tm: 08/16/2023 (1311) by:[email or web address] Printed Date/Time: 08/16/2023 (1314) Name: [facility] Phys:King Montilla MD [address] : 1935 Age: 88 Sex: F [place] [address] Loc: P.0405 A Exam Date: 08/16/2023 Status: ADM IN PH: FAX: PAGE 2 Signed Report- DUP VEIN [id number] 12:31:00[facility] 1935 Sex: FPatient Name: ROCK GOMEZ Unit No: [id number] EXAMS: CPT CODE: [id number] DUP VEIN JERMAINE 09929 EXAM: Ultrasound Bilateral lower extremity venous mapping HISTORY: Vein mapping - CABG in AM LOCATION:A1 TECHNIQUE: Grayscale real-time B-mode imaging was performed [...] thigh- 0.6 cm Mid thigh- 0.6 cm Distalthigh- 0.6 cm Greater saphenous Proximal thigh- 0.3 cm Mid thigh- 0.2 cm Rest of the left greater saphenous vein could not be visualized. SSV Proximal- 0.1 cm Mid calf- 0.1 cm Distal - 0.1 cm IMPRESSION: Bilateral lower extremity venous mapping as above. Name: [facility] Phys: Frances Headley [address] : 1935 Age: 88 Sex: [place] [address] Loc: P.0405 A Exam Date: 08/16/2023 Status: ADM IN PH: FAX: PAGE 1 Signed Report (CONTINUED) Patient Name: ROCK GOMEZ Unit No: [id number] EXAMS: CPT CODE: [id number] DUP VEIN JERMAINE 84741 (Continued) at 1231 Reported and signed by: SHANNAN NGUYEN M.D. CC: Frances GARCIA; Marianne Mckay MD Technologist: LIAT CHAN RDMS, AB Probe: Trscr Dt/Tm: 08/16/2023 (1231) by:[email or web address] Printed Date/Time: 08/16/2023 (6126) Name: [facility] Phys: SAMUELROMARIO ChurchimerFrances [address] : 1935 Age: 88 Sex: [place] [address] Loc: P.0405 A Exam Date: 08/16/2023 Status: ADM IN PH: FAX: PAGE 2 Signed ReportTHROMBOPLASTIN TIME [id number] 06:44:00* Test Item Value Reference Range Interpretation Comme nts THROMBOPLASTIN TIME PARTIAL (test code = PTT) 113.3 secs 23.8-34.8 HH Critical Value reported toFirst Name:mono Last Name:RESULTS READ BACK AND VERIFIEDby [id number], on 08/15/23, @ 0644.INTERPRETATIVE DATA: Therapeutic range: Unfractionated Heparin: 60-90 seconds Argatroban: 60-90 seconds Spec Comments: RE-DRAWCBC W/AUTO [id number] 06:21:00* Test Item Value Reference Range Interpretation [...] 0.05 x10 3/uL 0.0-0.20 N THROMBOPLASTIN TIME [id number] 05:01:00* Test Item Value Reference Range Interpretation Comme nts THROMBOPLASTIN TIME PARTIAL (test code = PTT) 121.4 secs 23.8-34.8 HH Critical Value reported toFirst Name:GYPSY Last Name:COLTON READ BACK AND VERIFIEDby [id number], on 08/15/23, @ 0501.INTERPRETATIVE DATA: Therapeutic range: Unfractionated Heparin: 60-90 seconds Argatroban: 60-90 seconds THROMBOPLASTIN TIME [id number] 20:36:00* Test Item Value Reference Range Interpretation Comme nts THROMBOPLASTIN TIME PARTIAL (test code = PTT) 56.6 secs 23.8-34.8 H INTERPRETATIVE D ARMANI: Therapeutic range: Unfractionated Heparin: 60-90 seconds Argatroban: 60-90 seconds THROMBOPLASTIN TIME [id number] 13:47:00* Test Item Value Reference Range Interpretation Comme nts THROMBOPLASTIN TIME PARTIAL (test code = PTT) 71.2 secs 23.8-34.8 H INTERPRETATIVE D ARMANI: Therapeutic range: Unfractionated Heparin: 60-90 seconds Argatroban: 60-90 seconds THROMBOPLASTIN TIME [id number] 06:31:00* Test Item Value Reference Range Interpretation Comme nts THROMBOPLASTIN TIME PARTIAL (test code = PTT) 112.8 secs 23.8-34.8 HH Critical Value reported toFirst Name:CHARLIE Last Name:RESULTS READ BACK AND VERIFIEDby [id number], on 08/14/23, @ 0660.INTERPRETATIVE DATA: Therapeutic range: Unfractionated Heparin: 60-90 seconds Argatroban: 60-90 seconds COMPREHENSIVE METABOLIC [id number] 04:53:00* Test Item Value Reference Range Interpretation [...] ALKP) 101.0 U/L 46-116 N CBC W/AUTO [id number] 04:33:00* Test Item Value Reference Range Interpretation [...] 0.04 x10 3/uL 0.0-0.20 N THROMBOPLASTIN TIME [id number] 10:39:00* Test Item Value Reference Range Interpretation Comme nts THROMBOPLASTIN TIME PARTIAL (test code = PTT) 75.0 secs 23.8-34.8 H INTERPRETATIVE D ARMANI: Therapeutic range: Unfractionated Heparin: 60-90 seconds Argatroban: 60-90 seconds COMPREHENSIVE METABOLIC [id number] 10:32:00* Test Item Value Reference Range Interpretation [...] ALKP) 88.0 U/L 46-116 N CBC W/AUTO [id number] 10:17:00* Test Item Value Reference Range Interpretation [...] 0.06 x10 3/uL 0.0-0.20 N THROMBOPLASTIN TIME [id number] 23:18:00* Test Item Value Reference Range Interpretation Comme nts THROMBOPLASTIN TIME PARTIAL (test code = PTT) 73.0 secs 23.8-34.8 H INTERPRETATIVE D ARMANI: Therapeutic range: Unfractionated Heparin: 60-90 seconds Argatroban: 60-90 seconds THROMBOPLASTIN TIME [id number] 19:32:00* Test Item Value Reference Range Interpretation Comme nts THROMBOPLASTIN TIME PARTIAL (test code = PTT) 81.7 secs 23.8-34.8 H INTERPRETATIVE D ARMANI: Therapeutic range: Unfractionated Heparin: 60-90 seconds Argatroban: 60-90 seconds Spec Comments: USE LABS ALREADY SENT AROUND 1400PLT RESPONSE TO [id number] 18:17:00* Test Item Value Reference Range Interpretation [...] cardiology patients (Refernce: Ren et al Circulation 2011:154:5733-2664). Optimaltherapeutic and pre-surgical PRU targets have not beenestablished.Test results are reported in P2Y12 Reaction Units (PRU) PRU reference range is 194-418 PRU. Values <194 PRU arespecific evidence of a P2Y12 inhibitor effect. [Automated message] The system which generated this result transmitted reference range: (). The reference range was not used to interpret this result as normal/abnormal. PLT RESPONSE TO [id number] 18:16:00* Test Item Value Reference Range Interpretation Comme nts PLT RESPONSE TO PLAVIX (test code = PLAVRES) 144 PRU PRU Results Inte rpretation: Normal [...] cardiology patients (Refernce: Ren et al Circulation 2011:154:0024-7867). Optimaltherapeutic and pre-surgical PRU targets have not beenestablished. Novel Coronavirus 13:50:00* Test Item Value Reference Range Interpretation Comme nts Novel Coronavirus 2019 Inhouse (test code = ZOCFU18IW) Negative Negative Positive resul ts are indicative of the presence gtQRXQ-YoL-0 RNA, clinical correlation with patient historyand other [...] the qualitative detection of nucleic acids from rfzMXRD-IgL-1 virus and diagnosis of SARS-CoV-2 virusinfection. It is an Emergency Use Authorization (EUA) testauthorized by the U.S. FDA. BASIC METABOLIC [id number] 07:11:00* Test Item Value Reference Range Interpretation [...] code = CA) 7.9 mg/dL 8.7-10.4 L [id number] 07:11:00* Test Item Value Reference Range Interpretation Comme nts PHOSPHOROUS (test code = PHOS) 3.4 mg/dL 2.4-5.1 N [id number] 07:11:00* Test Item Value Reference Range Interpretation Comme nts MAGNESIUM (test code = MAG) 1.5 mg/dL 1.6-2.6 L THROMBOPLASTIN TIME [id number] 06:30:00* Test Item Value Reference Range Interpretation Comme nts THROMBOPLASTIN TIME PARTIAL (test code = PTT) 50.7 secs 23.8-34.8 H INTERPRETATIVE D ARMANI: Therapeutic range: Unfractionated Heparin: 60-90 seconds Argatroban: 60-90 seconds CBC W/AUTO [id number] 06:20:00* Test Item Value Reference Range Interpretation [...] = BA#) 0.07 x10 3/uL 0.0-0.20 N [id number] 03:18:00* Test Item Value Reference Range Interpretation Comme nts TROPONIN-I (test code = TROPI) 146.4 pg/mL 27.36-66.23 HH Critical Value r eported toFirst Name:MUNIRA May Name:CARMEN READ BACK AND VERIFIEDby [id number], on 08/11/23, @ 0318. COMPREHENSIVE METABOLIC [id number] 03:13:00* Test Item Value Reference Range Interpretation [...] code = ALKP) 81.0 U/L 46-116 N [id number] 03:13:00* Test Item Value Reference Range Interpretation Comme nts PHOSPHOROUS (test code = PHOS) 3.2 mg/dL 2.4-5.1 N [id number] 03:13:00* Test Item Value Reference Range Interpretation Comme [facility] MAGNESIUM (test code = MAG) 1.9 mg/dL 1.6-2.6 N PROTHROMBIN [id number] 03:07:00* Test Item Value Reference Range Interpretation Comme [facility] PROTHROMBIN TIME PATIENT (test code = PTP) [...] systemic anticoagulation for high-risk conditions THROMBOPLASTIN TIME [id number] 03:07:00* Test Item Value Reference Range Interpretation Comme [facility] THROMBOPLASTIN TIME PARTIAL (test code = PTT) 79.2 secs 23.8-34.8 H INTERPRETATIVE D ARMANI: Therapeutic range: Unfractionated Heparin: 60-90 seconds Argatroban: 60-90 seconds CBC W/AUTO [id number] 02:51:00* Test Item Value Reference Range Interpretation Comme [facility] WHITE BLOOD CELL (test code = WBC) [...] = BA#) 0.05 x10 3/uL 0.0-0.20 N [id number] 16:32:00* Test Item Value Reference Range Interpretation Comme nts TROPONIN-I (test code = TROPI) 225.2 pg/mL 27.36-66.23 HH Critical Value r eported toFirst Name:FRANKY Lalo Name:SATURNINO READ BACK AND VERIFIEDby [facility], on 08/10/23, @ 1632. [id number] 08:25:00* Test Item Value Reference Range Interpretation Comme nts GLUBED (test code = GLUBED) 100 MG/DL 70-105 N COVID 19 Asymptomatic IH [id number] 04:36:00* Test Item Value Reference Range Interpretation [...] signs and symptomsconsistent with COVID-19. COMPREHENSIVE METABOLIC [id number] 03:50:00* Test Item Value Reference Range Interpretation [...] code = ALKP) 77.0 U/L 46-116 N [id number] 03:50:00* Test Item Value Reference Range Interpretation Comme nts PHOSPHOROUS (test code = PHOS) 3.2 mg/dL 2.4-5.1 N [id number] 03:50:00* Test Item Value Reference Range Interpretation Comme nts MAGNESIUM (test code = MAG) 2.3 mg/dL 1.6-2.6 N B-TYPE NATRIURETIC [id number] 03:50:00* Test Item Value Reference Range Interpretation Comme nts B-TYPE NATRIURETIC PEPTIDE ( test code = BNP) 679 pg/mL <100 H CBC W/AUTO [id number] 03:33:00* Test Item Value Reference Range Interpretation [...] BA#) 0.07 x10 3/uL 0.0-0.20 N PROTHROMBIN [id number] 03:33:00* Test Item Value Reference Range Interpretation [...] systemic anticoagulation for high-risk conditions THROMBOPLASTIN TIME [id number] 03:33:00* Test Item Value Reference Range Interpretation Comme nts THROMBOPLASTIN TIME PARTIAL (test code = PTT) 90.8 secs 23.8-34.8 H INTERPRETATIVE D ARMANI: Therapeutic range: Unfractionated Heparin: 60-90 seconds Argatroban: 60-90 seconds - CT CHEST W/O [id number] 22:41:00 [facility] 1935 Sex: FPatient Name: ROCK GOMEZ Unit No: [id number] EXAMS: CPT CODE: [id number] CT CHEST W/O [id number] EXAM: - CT CHEST W/O CONTRAST LOCATION: [...] the right upper lobe. Small right pleural effusion. Platelike atelectasis in the lower lobes. Chronic compression deformities of the spine as above. Name: [facility] Phys: Noble Rivera [address] :1935 Age: 88 Sex: [place] [address] Loc: P.0318 1 Exam Date: 08/09/2023 Status: ADM IN PH: FAX: PAGE 1 Signed Report (CONTINUED) Patient Name: ROCK GOMEZ Unit No: [id number] EXAMS: CPT CODE: [id number] CT CHEST W/O CONTRAST 23546 (Continued) Electronically Signedby TOMAS HERNANDEZ M.D. on 08/09/2023 at 2241 Reported and signed by: TOMAS HERNANDEZ M.D. CC: Noble GARCIA; Marianne Mckay MD Technologist: Palmer Dennis; Fatemeh Avila CTDI: 4.04 DLP: 153 Trscr Dt/Tm: 08/09/2023 (2241) by:[email or web address] Printed Date/Time: 08/09/2023 (2191) Name: [facility] Phys: Noble Rivera [address] :1935 Age: 88 Sex: [place] [address] Loc: P.0318 1 Exam Date: 08/09/2023 Status: ADM IN PH: FAX: PAGE 2 Signed [id number] 21:47:00 * Test Item Value Reference Range Interpretation Comme nts GLUBED (test code = GLUBED) 103 MG/DL 70-105 N [id number] 21:31:00* Test Item Value Reference Range Interpretation Comme nts TROPONIN-I (test code = TROPI) 524.6 pg/mL 27.36-66.23 HH Critical Value r eported toFirst Name:MUNIRA Last Name:ERINRESULTS READ BACK AND VERIFIEDby [id number], on 08/09/23, @ 3201. Spec Comments: Trend until peakedTHROMBOPLASTIN TIME [id number] 17:54:00 * Test Item Value Reference Range Interpretation Comme nts THROMBOPLASTIN TIME PARTIAL (test code = PTT) 71.0 secs 23.8-34.8 H INTERPRETATIVE D ARMANI: Therapeutic range: Unfractionated Heparin: 60-90 seconds Argatroban: 60-90 seconds Spec Comments: [id number] 15:13:00* Test Item Value Reference Range Interpretation Comme nts TROPONIN-I (test code = TROPI) 531.5 pg/mL 27.36-66.23 HH Critical Value r eported toFirst Name:RAUL Last Name:SALORESULTS READ BACK AND VERIFIEDby [id number], on 08/09/23, @ 8293. HGBA1C - GLYCOSYLATED [id number] 15:03:00* Test Item Value Reference Range Interpretation Comme nts GLYCOSYLATED HEMOGLOBIN (HA1C) (test code = GLYHGB) 5.0 % <5.7 N Diabetic >/= 6.5%Prediabetes 5.7-6.4%Normal < 5.7% - XR CHEST 1 [id number] 09:15:00 [facility] 1935 Sex: FPatient Name: ROCK GOMEZ Unit No: [id number] EXAMS: CPT CODE: [id number] XR CHEST 1 V 44567 EXAM: Chest one view. Location: A1 HISTORY: [...] Air Kerma (mGy): Trscr Dt/Tm: 08/09/2023 (0915) by:[email or web address] Printed Date/Time: 08/09/2023 (0918) Name: [facility] Phys: Herve Uribe MD [address] : 1935 Age:88 Sex: [place] [address] Loc: P.ERIM 10 Exam Date: 08/09/2023 Status: ADM IN PH: FAX: PAGE 1 Signed [id number] 08:54:00* Test Item Value Reference Range Interpretation Comme nts TROPONIN-I (test code = TROPI) 534.3 pg/mL 27.36-66.23 HH Critical Value r eported toFirst Name:BERNA Last Name:NAGA READ BACK AND VERIFIEDby LULAVJP, on 08/09/23, @ 0854. LIPID PROFILE (CORONARY [...] Borderline Risk LDL Cholesterol<100mg/dL : Desirable LDL-C ferwgmmnxnphc081-814kq /dL: Borderline High Risk LDL-C xmanhwnoguiyk358-705kn /dL: High risk LDL-C concentration HDL-LDL Cholesterol is affected by a number of factors suchas smoking, age and sex.~~~~~~~~~~~~~~~~~~ ~~~~~~~~~~~~~~~~~~~~~~ ~~~~~~~~~~~~~~~~~~~~ [id number] 08:50:00* Test Item Value Reference Range Interpretation Comme nts MAGNESIUM (test code = MAG) 1.3 mg/dL 1.6-2.6 L B-TYPE NATRIURETIC [id number] 08:50:00* Test Item Value Reference Range Interpretation Comme nts B-TYPE NATRIURETIC PEPTIDE ( test code = BNP) 539 pg/mL <100 H BASIC METABOLIC [id number] 08:50:00* Test Item Value Reference Range Interpretation [...] = CA) 8.4 mg/dL 8.7-10.4 L PROTHROMBIN [id number] 08:42:00* Test Item Value Reference Range Interpretation [...] systemic anticoagulation for high-risk conditions THROMBOPLASTIN TIME [id number] 08:42:00* Test Item Value Reference Range Interpretation Comme nts THROMBOPLASTIN TIME PARTIAL (test code = PTT) 77.7 secs 23.8-34.8 H INTERPRETATIVE D ARMANI: Therapeutic range: Unfractionated Heparin: 60-90 seconds Argatroban: 60-90 seconds CBC W/AUTO [id number] 08:38:00* Test Item Value Reference Range Interpretation [...] 0.07 x10 3/uL 0.0-0.20 N COMPREHENSIVE METABOLIC [id number] 06:32:00* Test Item Value Reference Range Interpretation [...] = LDL) 95 MG/DL 0-129 N <100 RJUJJYB51 0 - 129 NEAR OPTIMAL/ABOVE NJRWTZH071 - 159 AUSMVZLARZ885 - 189 HIGH>OR= 190 VERY HIGHNOTE THAT GUIDELINES ARE PROVIDED BY NATIONAL CHOLESTEROLEDUCATION PROGRAM ADULT TREATMENT PANEL III LDL/HDL (test code = LDL/HDL) 0.96 Ratio See_Comment L [Automated messa ge] The system which generated this result transmitted reference range: 1.48-3.22 Avg. The reference range was not used to interpret this result as normal/abnormal. [id number] 06:32:00* Test Item Value Reference Range Interpretation Comme nts MAGNESIUM (test code = MAG) 1.7 MG/DL 1.8-2.4 L PROTHROMBIN [id number] 06:15:00* Test Item Value Reference Range Interpretation [...] Infarction (to prevent recurrent infarct). CBC W/AUTO [id number] 06:13:00* Test Item Value Reference Range Interpretation [...] NRBC#) 0.0 K/mm3 0.0-0.1 N CBC WITH [id number] 15:00:57* Test Item Value Reference Range Interpretation [...] 33.7 g/dL 31.6-35.1 RDW-SD (test code = 11674-4) 45.5 fL 39.0-49.9 RDW-CV (test code = 788-0) 14.4 % 12.0-15.5 PLT (test code = 777-3) 311 See_Comment [Automated [employer] ge] The system which generated this result transmitted reference range: 166 - 358 10*3/?L. The reference range was not used to interpret this result as normal/abnormal. MPV (test code = 37616-1) 9.0 fL 9.5-12.9 L NRBC/100 WBC (test code = 1161429686) 0.0 See_Comment [Automated [employer] ssage] The system which generated this result transmitted reference range: 0.0 - 10.0 /100 WBCs. The reference range was not used to interpret this result as normal/abnormal. NRBC x10^3 (test code = 9609206415) See_Comment [Automated [employer]] The system which generated this result transmitted reference range: 10*3/?L. The reference range was not used to interpret this result as normal/abnormal. GRAN MAT (NEUT) % (test code = 770-8) 57.4 % IMM GRAN % (test code = 7285685534) 5.70 % LYMPH % (test code = 736-9) 29.0 % MONO % (test code = 5905-5) 7.4 % EOS % (test code = 713-8) 0.2 % BASO % (test code = 706-2) 0.3 % GRAN MAT x10^3(ANC) (test code = 3822988719) 6.31 10*3/uL 1.88-7.09 IMM GRAN x10^3 (test code = 9079581914) 0.63 10*3/uL 0.00-0.06 H LYMPH x10^3 (test code = 731-0) 3.19 10*3/uL 1.32-3.29 MONO x10^3 (test code = 742-7) 0.81 10*3/uL 0.33-0.92 EOS x10^3 (test code = 711-2) 0.03-0.39 L BASO x10^3 (test code = 704-7) 0.03 10*3/uL 0.01-0.07 BANDS (test code = 2982246493) Increased A REACT LYMPHS (test code = 1790964268) Rare TOXIC CHANGES (test code = 803-7) Present A Lab Interpretation (test code = 65184-1) Abnormal [facility] METABOLIC PANEL (NA, K, CL, CO2, GLUCOSE, BUN, CREATININE, CA)2022-08-05 12:42:23* Test Item Value Reference Range Interpretation Comme nts NA (test code = 7925191589) 136 mmol/L 135-145 K (test code = 1730699122) 3.3 mmol/L 3.5-5.0 L CL (test code = 5284855313) 103 mmol/L 98-108 CO2 TOTAL (test code = 6003429117) 27 mmol/L 23-31 AGAP (test code = 5126652338) 6 2-16 BUN (test code = 2387051720) 34 mg/dL 7-23 H GLUCOSE (test code = 4051399316) 106 mg/dL 70-110 CREATININE (test code = 6425501489) 0.72 mg/dL 0.50-1.04 CALCIUM (test code = 1275549910) 8.3 mg/dL 8.6-10.6 L eGFR (test code = 5745636329) 76.8 mL/min/1.73m2 CHANO (test code = CHANO) [...] imaging tests). Lab Interpretation (test code = 11509-0) Abnormal [facility] GLUCOSE (AUTOMATED)2022-08-03 22:56:06* Test Item Value Reference Range Interpretation Comme [facility] POCT GLU (test code = 8885619614) 127 mg/dL 70-110 H Lab Interpretation (test cod e = 88569-2) Abnormal [facility] GLUCOSE (AUTOMATED)2022-08-03 14:17:47* Test Item Value Reference Range Interpretation Comme [facility] POCT GLU (test code = 8535193254) 129 mg/dL 70-110 H Lab Interpretation (test cod e = 14539-2) Abnormal [facility] WITH [id number] 19:07:08* Test Item Value Reference Range Interpretation Comme [facility] WBC (test code = 6690-2) 9.15 See_Comment [...] 33.6 g/dL 31.6-35.1 RDW-SD (test code = 08034-2) 45.9 fL 39.0-49.9 RDW-CV (test code = 788-0) 14.2 % 12.0-15.5 PLT (test code = 777-3) 252 See_Comment [Automated message] The system which generated this result transmitted reference range: 166 - 358 10*3/?L. The reference range was not used to interpret this result as normal/abnormal. MPV (test code = 55891-1) 9.0 fL 9.5-12.9 L NRBC/100 WBC (test code = 2450536038) 0.0 See_Comment [Automated message] The system which generated this result transmitted reference range: 0.0 - 10.0 /100 WBCs. The reference range was not used to interpret this result as normal/abnormal. NRBC x10^3 (test code = 6814889859) See_Comment [Automated message] The system which generated this result transmitted reference range: 10*3/?L. The reference range was not used to interpret this result as normal/abnormal. GRAN MAT (NEUT) % (test code = 770-8) 62.0 % IMM GRAN % (test code = 1192773086) 1.40 % LYMPH % (test code = 736-9) 20.7 % MONO % (test code = 5905-5) 13.4 % EOS % (test code = 713-8) 1.7 % BASO % (test code = 706-2) 0.8 % GRAN MAT x10^3(ANC) (test code = 4489006288) 5.67 10*3/uL 1.88-7.09 IMM GRAN x10^3 (test code = 3041418326) 0.13 10*3/uL 0.00-0.06 H LYMPH x10^3 (test code = 731-0) 1.89 10*3/uL 1.32-3.29 MONO x10^3 (test code = 742-7) 1.23 10*3/uL 0.33-0.92 H EOS x10^3 (test code = 711-2) 0.16 10*3/uL 0.03-0.39 BASO x10^3 (test code = 704-7) 0.07 10*3/uL 0.01-0.07 BANDS (test code = 0066471692) MARKED INCREASED A DOHLE BODIES (test code = 7792-5) Present A REACT LYMPHS (test code = 0143526525) Rare TOXIC CHANGES (test code = 803-7) Present A Lab Interpretation (test code = 28965-1) [facility] [id number] 18:36:41* Test Item Value Reference Range Interpretation Comme nts TROPONIN I (test code = 2619207858) 0.020 ng/mL <=0.034 CHANO (test code = [...] of biotin. Lab Interpretation (test code = 67635-6) Normal [facility] [id number]-[id number] 18:35:19* Test Item Value Reference Range Interpretation Comme nts NT-proBNP (test code = 8172622749) 869 pg/mL <=450 H CHANO (test code = CHANO) Biotin has been reported to cause a negative bias, interpret results relative to patient's use of biotin. Lab Interpretation (test code = 46066-3) [facility]OL[facility] PAN[facility] (74236)2022-08-01 18:25:17* Test Item Value Reference Range Interpretation Comme nts NA (test code = 6527341101) 135 mmol/L 135-145 K (test code = 4577665687) 4.6 mmol/L 3.5-5.0 CL (test code = 0223122684) 101 mmol/L 98-108 CO2 TOTAL (test code = 4677676098) 25 mmol/L 23-31 AGAP (test code = 6063847852) 9 2-16 BUN (test code = 0422079778) 19 mg/dL 7-23 GLUCOSE (test code = 3859869574) 114 mg/dL 70-110 H CREATININE (test code = 9847332239) 0.60 mg/dL 0.50-1.04 TOTAL BILI (test code = 0192164953) 1.2 mg/dL 0.1-1.1 H CALCIUM (test code = 2258965297) 8.5 mg/dL 8.6-10.6 L T PROTEIN (test code = 4787296891) 7.4 g/dL 6.3-8.2 ALBUMIN (test code = 3449016821) 4.2 g/dL 3.5-5.0 ALK PHOS (test code = 9117181988) 104 U/L 34-122 ALTv (test code = 1742-6) 23 U/L 5-35 AST(SGOT) (test code = 1912743374) 40 U/L 13-40 eGFR (test code = 3680264575) 94.8 mL/min/1.73m2 CHANO (test code = CHANO) [...] imaging tests). Lab Interpretation (test code = 86628-9) Abnormal [facility] [id number] 16:38:04* Test Item Value Reference Range Interpretation Comments TROPONIN I (test code = 1278570819) 0.005 ng/mL See_Comment [Automated message] The system [...] of biotin. Lab Interpretation (test code = 82461-8) Normal [facility] PAB-[id number] 16:34:44* Test Item Value Reference Range Interpretation Comme nts NT-proBNP (test code = 3829083915) 717 pg/mL See_Comment H [Automated message] The system which generated this result transmitted reference range: <=450. The reference range was not used to interpret this result as normal/abnormal. CHANO (test code = CHANO) Biotin has been reported to cause a negative bias, interpret results relative to patient's use of biotin. Lab Interpretation (test code = 36489-5) Abnormal [facility] HospitalACTIVATED PARTIAL THRMPLAS [id number] 16:29:01* Test Item Value Reference Range Interpretation Comme [facility] APTT Patient (test code = 3173-2) See_Comment [Automated message] The system which generated this result transmitted reference range: 23 - 38 Seconds. The reference range was not used to interpret this result as normal/abnormal. CHANO (test code = CHANO) The [facility] patient population mean normal value for aPTT is 30 seconds. Lab Interpretation (test code = 39222-8) Normal [facility] HospitalPROTHROMBIN TIME / [id number] 16:26:59* Test Item Value Reference Range Interpretation Comme [facility] PROTIME PATIENT (test code = 5964-2) See_Comment [Automated messa ge] The system which generated this result transmitted reference range: 12.0 - 14.7 Seconds. The reference range was not used to interpret this result as normal/abnormal. INR (test code = 6301-6) Normal INR <1.1; Warfarin Therapeutic range 2.0 to 3.0 or 2.5 to 3.5, depending upon the indications. Lab Interpretation (test code = 70106-4) Normal [facility] MET[facility]OLIC PANEL (90148)2022-07-07 16:26:24* Test Item Value Reference Range Interpretation Comme [facility] NA (test code = 5785500470) 135 mmol/L 135-145 K (test code = 6743454970) 3.4 mmol/L 3.5-5.0 L CL (test code = 9094311938) 98 mmol/L 98-108 CO2 TOTAL (test code = 3840362526) 23 mmol/L 23-31 AGAP (test code = 7652464128) 2-16 BUN (test code = 3176343133) 15 mg/dL 7-23 GLUCOSE (test code = 5726389551) 114 mg/dL 70-110 H CREATININE (test code = 7542214305) 0.57 mg/dL 0.50-1.04 TOTAL BILI (test code = 7570236483) 0.6 mg/dL 0.1-1.1 CALCIUM (test code = 4654824746) 8.9 mg/dL 8.6-10.6 T PROTEIN (test code = 9456324055) 7.3 g/dL 6.3-8.2 ALBUMIN (test code = 0394439447) 4.3 g/dL 3.5-5.0 ALK PHOS (test code = 3517997071) 121 U/L 34-122 ALTv (test code = 1742-6) 20 U/L 5-35 AST(SGOT) (test code = 7707755636) 28 U/L 13-40 eGFR (test code = 8001576488) mL/min/1.73m2 CHANO (test code = CHANO) Association [...] imaging tests). Lab Interpretation (test code = 53173-1) Abnormal [facility] WITH [id number] 16:12:21* Test Item Value Reference Range Interpretation [...] 32.6 g/dL 31.6-35.1 RDW-SD (test code = 73936-5) 41.7 fL 39.0-49.9 RDW-CV (test code = 788-0) 12.8 % 12.0-15.5 PLT (test code = 777-3) See_Comment [Automated [employer]] The system which generated this result transmitted reference range: 166 - 358 10*3/?L. The reference range was not used to interpret this result as normal/abnormal. MPV (test code = 92543-9) 8.3 fL 9.5-12.9 L NRBC/100 WBC (test code = 0551537044) See_Comment [Automated [employer] ssage] The system which generated this result transmitted reference range: 0.0 - 10.0 /100 WBCs. The reference range was not used to interpret this result as normal/abnormal. NRBC x10^3 (test code = 2276910276) See_Comment [Automated messa ge] The system which generated this result transmitted reference range: 10*3/?L. The reference range was not used to interpret this result as normal/abnormal. GRAN MAT (NEUT) % (test code = 770-8) 75.0 % IMM GRAN % (test code = 2046705818) 0.50 % LYMPH % (test code = 736-9) 15.3 % MONO % (test code = 5905-5) 7.7 % EOS % (test code = 713-8) 1.0 % BASO % (test code = 706-2) 0.5 % GRAN MAT x10^3(ANC) (test code = 0098295728) 9.28 10*3/uL 1.88-7.09 H IMM GRAN x10^3 (test code = 4578730319) 0.06 10*3/uL 0.00-0.06 LYMPH x10^3 (test code = 731-0) 1.89 10*3/uL 1.32-3.29 MONO x10^3 (test code = 742-7) 0.95 10*3/uL 0.33-0.92 H EOS x10^3 (test code = 711-2) 0.12 10*3/uL 0.03-0.39 BASO x10^3 (test code = 704-7) 0.06 10*3/uL 0.01-0.07 Lab Interpretation (test code = 68651-5) Abnormal [facility]"
[2024-07-20 02:39] LABS: PT Prothrombin Time 11.4 SECONDS (9.4-12.5); Protime INR 1.09
[2024-07-20 02:40] LABS: Specific Gravity 1.007 (1.005-1.030); Sqamous Epithelial <5 /HPF (None Seen); Urine Bacteria None Seen /HPF (<20); Urine Bilirubin NEGATIVE (Negative); Urine Blood Negative (Negative); Urine Clarity Clear (Clear); Urine Color Colorless (Yellow); Urine Culture Reflex Order NOT NEEDED; Urine Glucose NEGATIVE (Negative); Urine Ketones NEGATIVE (Negative); Urine Micro Reflex YN NO BILL MICROSCOPIC; Urine Nitrite NEGATIVE (Negative); Urine Protein NEGATIVE (Negative); Urine RBC <5 /HPF (None Seen); Urine Urobilinogen Normal (Normal); Urine WBC <5 /HPF (<5); Urine pH 6.5 (5.0-7.0)
[2024-07-20 02:41] LABS: Absolute Basophils 0.1 K/uL (0-0.5); Absolute Eosinophils 0.1 K/uL (0-0.5); Absolute Lymphocytes (CBC) 1.8 K/uL (0.7-4.9); Absolute Monocytes 0.5 K/uL (0.1-1.3); Absolute Neutrophil 4.7 K/uL (1.8-8.0); Basophils % 1.1 % (0-1.3); Eosinophils % 1.7 % (0-4.4); Hematocrit 34.4 % (36.0-45.0); Lymphocytes % 24.9 % (15.3-44.8); MCH 32.6 pg (27.0-35.0); MCHC 34.9 g/dL (32.0-36.0); MCV 93.4 fL (80-100); MPV 7.3 fL (7.6-11.3); Monocytes % 7.3 % (3.3-12.3); Platelets 280 thou/uL (152-406); RBC Red Blood Cell Count 3.69 M/uL (3.86-4.86); Red Cell Distribution Width 14.6 % (12.1-15.2)
[2024-07-20 02:59] LABS: Albumin 3.3 g/dL (3.4-5.0); Albumin/Globulin Ratio 0.8 (1.1-1.8); Anion Gap 10.7 mEq/L (5.0-15.0); Bilirubin Direct 0.2 mg/dL (0-0.2); Bilirubin Indirect, Calculated 0.7 mg/dL (0.2-0.8); Bilirubin Total 0.9 mg/dL (0.2-1.0); Globulin 4.1 g/dL (2.3-3.5); Potassium 2.7 mEq/L (3.5-5.1); Protein, Total 7.4 g/dL (6.4-8.2); Troponin High Sensitivity 36.7 pg/mL (<58.9)
[2024-07-20 03:02] LABS: Magnesium 0.9 mg/dL (1.6-2.4); Thyroid Stimulating Hormone 3.9 uIU/mL (0.358-3.740)
[2024-07-20] MEDS ORDERED: CALCIUM GLUCONATE 1 GM IVPB 1 GM/50 ML BAG IV ONE (03:20)
[2024-07-20] MEDS ORDERED: POTASSIUM 25 MEQ EFFERV TAB ONE (03:20)
--- NOTE | 2024-07-20 03:59 | RAD REPORT ---
EXAM: Extrem Venous W Compress Leobardo US Bilateral Lower Extremity Venous Duplex Doppler HISTORY: bilateral swelling COMPARISON: None TECHNIQUE: Grayscale, color Doppler, duplex Doppler, spectral Doppler images and analysis with compre ssion and augmentation of right and left lower extremity veins. FINDINGS: Right and Left common femoral, greater saphenous, femoral, deep (profunda) femoral, popliteal, offline editor ior tibial veins unremarkable without evidence of clot. IMPRESSION: No sonographic evidence of right or left lower extremity DVT. Electronically signed by: Jarocho Bradshaw MD 07/20/2024 03:55 AM [facility] Due to temporary technical issues with the PACS/Power scribe reporting system, reports are being sign ed by the in-house radiologist without review as a courtesy to ensure prompt reporting the interpreting rad iologist is fully responsible for the content of the report. Transcribed Date/Time: 07/20/2024 3:58 AM
--- NOTE | 2024-07-20 06:04 | RAD REPORT ---
EXAM: XR Chest, 1 View CLINICAL HISTORY: The patient is 89 years old and is Female; edema TECHNIQUE: Frontal view of the chest. COMPARISON: No relevant prior studies available. FINDINGS: Lungs: See below. Pleural space: Left hemidiaphragm is obscured which can be seen with left pleural effusion, as we ll as left lower lobe consolidation or atelectasis. No pneumothorax. Heart: Unremarkable. Mediastinum: Postsurgical changes in the mediastinum. Bones/joints: No acute findings. Tubes, lines and devices: Left-sided pacemaker. IMPRESSION: Left hemidiaphragm is obscured which can be seen with left pleural effusion, as well as left lower lobe consolidation or atelectasis. Electronically signed by: Mani Mills MD 07/20/2024 03:13 AM [facility] 8 Due to temporary technical issues with the PACS/UsingMiles reporting system, reports are being marine d by the in-house radiologist without review as a courtesy to ensure prompt reporting the interpreting radiologist is fully responsible for the content of the report. Transcribed Date/Time: 07/20/2024 6:03 AM
--- NOTE | 2024-07-20 06:17 | EDPHYS ---
Physician Documentation [facility] Name: Adrienne Phelan Age: 89 yrs Sex: Female : 1935 Arrival Date: 07/20/2024 Time: 01:33 Bed 8 Private MD: ED Physician Ryan Greenwood HPI: 07/20 01:47 This 89 yrs old Female presents to ER via Unassigned with complaints of Leg sp4 Swelling. 04:18 89-year-old female presents with complaint of bilateral lower extremity swelling in the sp4 last few days.. Historical: - Allergies: 02:07 Benadryl; bm8 02:07 Codeine; bm8 02:07 PENICILLINS; bm8 02:07 Tetanus Vaccines and Toxoid; bm8 - Home Meds: 02:07 None [Active]; bm8 - PMHx: 02:07 Congestive heart failure; Hypertensive disorder; bm8 - PSHx: 02:07 Coronary artery bypass graft; pacemaker; bm8 - Immunization history:: Adult Immunizations up to date. - Infectious Disease History:: Denies. - Social history:: Smoking status: Patient denies any tobacco usage or history of. Patient uses alcohol, on a daily basis. - Family history:: not pertinent. ROS: 04:18 Constitutional: Negative for fever, chills, and weight loss, positive bilateral lower sp4 extremity swelling 04:18 All other systems are negative, Exam: 04:07 Constitutional: This is a well developed, well nourished patient who is awake, alert, sp4 and in no acute distress. Head/Face: Normocephalic, atraumatic. Eyes: Pupils equal round and reactive to light, extra-ocular motions intact. Lids and lashes normal. Conjunctiva and sclera are not injected. Cornea within normal limits. Periorbital areas with no swelling, redness, or edema. ENT: Nares patent. No nasal discharge, no septal abnormalities noted. Tympanic membranes are normal and external auditory canals are clear. Oropharynx with no redness, swelling, or masses, exudates, or evidence of obstruction, uvula midline. Mucous membranes moist. Neck: Trachea midline, no thyromegaly or masses palpated, and no cervical lymphadenopathy. Supple, full range of motion without nuchal rigidity, or vertebral point tenderness. Chest/axilla: Normal chest wall appearance and motion. Nontender with no deformity. No lesions are appreciated. Cardiovascular: Regular rate and rhythm with a normal S1 and S2. No gallops, murmurs, or rubs. Normal PMI, no JVD. No pulse deficits. Respiratory: Lungs have equal breath sounds bilaterally, clear to auscultation and percussion. No rales, rhonchi or wheezes noted. No increased work of breathing, no retractions or nasal flaring. Abdomen/GI: Soft, with normal bowel sounds. No distension or tympany. No guarding or rebound. No evidence of tenderness throughout. Back: No spinal tenderness. No costovertebral tenderness. Skin: Warm, dry with normal turgor. Normal color with no rashes, no lesions, and no evidence of cellulitis. MS/ Extremity: Pulses equal, no cyanosis. Neurovascular intact. Full, normal range of motion. Significant bilateral leg swelling perhaps trace bilateral pedal edema Neuro: Awake and alert, GCS 15, oriented to person, place, time, and situation. Cranial nerves II-XII grossly intact. Motor strength 5/5 in all extremities. Sensory grossly intact. Psych: Awake, alert, with orientation to person, place and time. Behavior, mood, and affect are within normal limits 04:07 ECG was reviewed by the Attending Physician. EKG at 0 159 reveals normal sinus rhythm rate 93. Vital Signs: 01:35 BP 144 / 109; Pulse 90; Resp 17; Temp 98.4; Pulse Ox 95% ; Weight 53.07 kg; Height 4 bm8 ft. 10 in. ; Pain 0/10; 03:10 BP 151 / 70; Pulse 89; Resp 17; Temp 98.4; Pulse Ox 96% ; Pain 0/10; bm8 04:00 BP 143 / 83; Pulse 86; Resp 17; Pulse Ox 98% ; ay 05:00 BP 157 / 83; Pulse 76; Resp 16; Pulse Ox 98% ; ay 01:35 Body Mass Index 24.45 (53.07 kg, 147.32 cm) bm8 01:35 Pain Scale: Adult bm8 03:10 Pain Scale: Adult bm8 [place] Score: 02:10 Eye Response: spontaneous(4). Motor Response: obeys commands(6). Verbal Response: bm8 oriented(5). Total: 15. 03:10 Eye Response: spontaneous(4). Motor Response: obeys commands(6). Verbal Response: bm8 oriented(5). Total: 15. 04:07 Eye Response: spontaneous(4). Motor Response: obeys commands(6). Verbal Response: sp4 oriented(5). Total: 15. MDM: 01:54 Medical Screening Exam initiated sp4 04:06 ED course: EXAM: XR Chest, 1 View CLINICAL HISTORY: The patient is 89 years old and is sp4 Female; edema TECHNIQUE: Frontal view of the chest. COMPARISON: No relevant prior studies available. FINDINGS: Lungs: See below. Pleural space: Left hemidiaphragm is obscured which can be seen with left pleural effusion, as well as left lower lobe consolidation or atelectasis. No pneumothorax. Heart: Unremarkable. Mediastinum: Postsurgical changes in the mediastinum. Bones/joints: No acute findings. Tubes, lines and devices: Left-sided pacemaker. IMPRESSION: Left hemidiaphragm is obscured which can be seen with left pleural effusion, as well as left lower lobe consolidation or atelectasis. . ED course: EXAM: Extrem Venous W Compress Leobardo US Bilateral Lower Extremity Venous Duplex Doppler HISTORY: bilateral swelling COMPARISON: None TECHNIQUE: Grayscale, color Doppler, duplex Doppler, spectral Doppler images and analysis with compression and augmentation of right and left lower extremity veins. FINDINGS: Right and Left common femoral, greater saphenous, femoral, deep (profunda) femoral, popliteal, posterior tibial veins unremarkable without evidence of clot. IMPRESSION: No sonographic evidence of right or left lower extremity DVT. . 04:18 Differential diagnosis: contusion, abrasion, tendonitis, Edema. Data reviewed: vital sp4 signs, nurses notes, lab test result(s), radiologic studies, plain films, ultrasound. Data reviewed: EMS record, [place] [facility] records. Consideration of Admission/Observation Escalation of care including admission/observation considered. ED course: Patient does not have signs of heart or renal failure. Trace bilateral pedal edema on exam. He is stable for discharge home. Advised to consume foods rich in potassium.. 06:15 ED course: Stable for discharge home. sp4 07/20 01:55 Order name: Basic Metabolic Panel; Complete Time: 03:17 sp4 07/20 01:55 Order name: CBC with Diff; Complete Time: 03:17 sp4 07/20 01:55 Order name: LFT's; Complete Time: 03:17 07/20 01:55 Order name: Magnesium; Complete Time: 03:17 07/20 01:55 Order name: NT PRO-BNP; Complete Time: 03:17 07/20 01:55 Order name: PT-INR; Complete Time: 03:17 07/20 01:55 Order name: Troponin HS; Complete Time: 03:17 07/20 01:55 Order name: Urinalysis W/Microscopic; Complete Time: 03:17 07/20 01:55 Order name: TSH; Complete Time: 03:17 07/20 01:55 Order name: T4 Free; Complete Time: 03:17 07/20 01:55 Order name: XRAY Chest (1 view) 07/20 01:57 Order name: Extrem Venous W Compression Leobardo US; Complete Time: 04:06 07/20 01:55 Order name: EKG; Complete Time: 01:55 07/20 01:55 Order name: Cardiac monitoring; Complete Time: 02:05 07/20 01:55 Order name: EKG - Nurse/Tech; Complete Time: 02:05 07/20 01:55 Order name: IV Saline Lock; Complete Time: 02:12 07/20 01:55 Order name: Labs collected and sent; Complete Time: 02:12 07/20 01:55 Order name: O2 Per Protocol; Complete Time: 02:05 07/20 01:55 Order name: O2 Sat Monitoring; Complete Time: 02:05 07/20 03:31 Order name: Wrist Splint; Complete Time: 03:35 07/20 03:31 Order name: Sling; Complete Time: 03:35 EC:59 Rate is 93 beats/min. Rhythm is regular, Normal Sinus Rhythm. QRS [place] is Normal. AL sp4 interval is normal. QRS interval is normal. QT interval is normal. No Q waves. T waves are Normal. No ST changes noted. Clinical impression: No evidence of ischemia. Interpreted by me. Reviewed by me. Administered Medications: 03:35 Drug: Calcium Gluconate IVPB 1 grams IVPB once over 60 mins; (mix in NS 100 mL) Route: bm8 IVPB; Infused Over: 60 mins; Site: right antecubital; 06:35 Follow up: Response: No adverse reaction; IV Status: Completed infusion ay 03:36 Drug: Potassium PO Effervescent Tablet 50 mEq PO once; dissolve in 4 ounces of water or bm8 juice Route: PO; 06:35 Follow up: Response: No adverse reaction ay Disposition Summary: 07/20/24 06:16 Discharge Ordered Notes: Location: Home sp4 Problem: new sp4 Symptoms: have improved sp4 Condition: Stable sp4 Diagnosis - Localized edema sp4 - Acute bilateral pedal edema sp4 Followup: sp4 - With: Vibha Ambrose MD - When: 7 - 10 days - Reason: Recheck today's complaints Discharge Instructions: - Discharge Summary Sheet sp4 - Edema, [id number] sp4 Forms: - Patient Portal Instructions sp4 Signatures: Dispatcher [employer] EDRyan Lee MD MD sp4 Zak Aleman RN RN bm8 Ty Palacio RN ay Corrections: (The following items were deleted from the chart) 01:55 01:55 Urinalysis W/Microscopic+U.LAB.BRZ ordered. EDMS EDMS
--- NOTE | 2024-07-20 06:17 | ER ---
Nurse's Notes [facility] Name: Adrienne Phelan Age: 89 yrs Sex: Female : 1935 Arrival Date: 07/20/2024 Time: 01:33 Bed 8 Private MD: Diagnosis: Localized edema;Acute bilateral pedal edema Presentation: 07/20 01:35 Chief complaint: Patient states: I have swelling in my legs that started this morning. bm8 01:35 Coronavirus screen: At this time, the client does not indicate any symptoms associated bm8 with coronavirus-19. Ebola Screen: Patient negative for fever greater than or equal to 101.5 degrees Fahrenheit, and additional compatible Ebola Virus Disease symptoms Patient denies exposure to infectious person. Patient denies travel to an Ebola-affected area in the 21 days before illness onset. No symptoms or risks identified at this time. Initial Sepsis Screen: Does the patient meet any 2 criteria? No. Patient's initial sepsis screen is negative. Does the patient have a suspected source of infection? No. Patient's initial sepsis screen is negative. Risk Assessment: Do you want to hurt yourself or someone else? Patient reports no desire to harm self or others. Onset of symptoms was July 19, 2024 at 09:00. 01:35 Method Of Arrival: EMS: [facility] bm8 01:35 Acuity: JASON 3 bm8 Triage Assessment: 02:07 General: Appears in no apparent distress. comfortable, Behavior is cooperative, bm8 anxious. Pain: Denies pain. EENT: No deficits noted. No signs and/or symptoms were reported regarding the EENT system. Neuro: No deficits noted. Level of Consciousness is awake, alert, obeys commands, Oriented to person, place, time, situation, Appropriate for age Shafting Worker are equal bilaterally Moves all extremities. Full function Gait is steady, Speech is normal, Facial symmetry appears normal, Pupils are PERRLA. Cardiovascular: Reports bilateral leg swelling Denies chest pain, Heart tones S1 S2 present. Respiratory: Airway is patent Trachea midline Respiratory effort is even, unlabored, Respiratory pattern is regular, symmetrical, Breath sounds are clear bilaterally. GI: No signs and/or symptoms were reported involving the gastrointestinal system. : No signs and/or symptoms were reported regarding the genitourinary system. Derm: No signs and/or symptoms reported regarding the dermatologic system. Musculoskeletal: No signs and/or symptoms reported regarding the musculoskeletal system. Historical: - Allergies: 02:07 Benadryl; bm8 02:07 Codeine; bm8 02:07 PENICILLINS; bm8 02:07 Tetanus Vaccines and Toxoid; bm8 - Home Meds: 02:07 None [Active]; bm8 - PMHx: 02:07 Congestive heart failure; Hypertensive disorder; bm8 - PSHx: 02:07 Coronary artery bypass graft; pacemaker; bm8 - Immunization history:: Adult Immunizations up to date. - Infectious Disease History:: Denies. - Social history:: Smoking status: Patient denies any tobacco usage or history of. Patient uses alcohol, on a daily basis. - Family history:: not pertinent. Screenin:11 [facility] ED Fall Risk Assessment (Adult) History of falling in the last 3 months, bm8 including since admission No falls in past 3 months (0 pts) Confusion or Disorientation No (0 pts) Intoxicated or Sedated No (0 pts) Impaired Gait No (0 pts) Mobility Assist Device Used No (0 pt) Altered Elimination No (0 pt) Score/Fall Risk Level 0 - 2 = Low Risk Oriented to surroundings, Maintained a safe environment, Educated pt \T\ family on fall prevention, incl call for assistance when getting out of bed, Assessed \T\ reinforced patient's understanding of fall precautions, Hourly rounding (assess needs \T\ fall precautionary measures) done, Used ambulatory aids as needed (educated on \T\ assisted with), Used gait belt as appropriate. Abuse screen: Denies threats or abuse. Nutritional screening: No deficits noted. Tuberculosis screening: No symptoms or risk factors identified. Assessment: 02:10 Reassessment: see triage assessment. bm8 03:10 Reassessment: Patient appears in no apparent distress at this time. Patient and/or bm8 family updated on plan of care and expected duration. Pain level reassessed. Patient is alert, oriented x 3, equal unlabored respirations, skin warm/dry/pink. Patient denies pain at this time. 04:28 Reassessment: Patient appears in no apparent distress at this time. Patient is alert, ay oriented x 3, equal unlabored respirations, skin warm/dry/pink. Patient denies pain at this time. Patient states feeling better. 05:40 Reassessment: Patient appears in no apparent distress at this time. No changes from ay previously documented assessment. Vital Signs: 01:35 BP 144 / 109; Pulse 90; Resp 17; Temp 98.4; Pulse Ox 95% ; Weight 53.07 kg; Height 4 bm8 ft. 10 in. ; Pain 0/10; 03:10 BP 151 / 70; Pulse 89; Resp 17; Temp 98.4; Pulse Ox 96% ; Pain 0/10; bm8 04:00 BP 143 / 83; Pulse 86; Resp 17; Pulse Ox 98% ; ay 05:00 BP 157 / 83; Pulse 76; Resp 16; Pulse Ox 98% ; ay 01:35 Body Mass Index 24.45 (53.07 kg, 147.32 cm) bm8 01:35 Pain Scale: Adult bm8 03:10 Pain Scale: Adult bm8 [place] Coma Score: 02:10 Eye Response: spontaneous(4). Motor Response: obeys commands(6). Verbal Response: bm8 oriented(5). Total: 15. 03:10 Eye Response: spontaneous(4). Motor Response: obeys commands(6). Verbal Response: bm8 oriented(5). Total: 15. 04:07 Eye Response: spontaneous(4). Motor Response: obeys commands(6). Verbal Response: sp4 oriented(5). Total: 15. ED Course: 01:35 Patient arrived in ED. gm2 01:46 Ryan Greenwood MD is Attending Physician. sp4 02:05 Zak Aleman, RN is Primary Nurse. bm8 02:07 Triage completed. bm8 02:07 Arm band placed on right wrist. bm8 02:08 XRAY Chest (1 view) In Process Unspecified. EDMS 02:11 Patient has correct armband on for positive identification. Placed in gown. Bed in low bm8 position. Call light in reach. Side rails up X 1. Client placed on continuous cardiac and pulse oximetry monitoring. NIBP monitoring applied. conveyor monitor on. Pulse ox on. NIBP on. Door closed. Noise minimized. Warm blanket given. Pillow given. Verbal reassurance given. Head of bed elevated. 02:11 No provider procedures requiring assistance completed. Initial lab(s) drawn, by dawna plascencia sent to lab. Urine collected: clean catch specimen, clear, EKG done, by ED staff, reviewed by Ryan Greenwood MD. Inserted saline lock: 20 gauge in right antecubital area, using aseptic technique. Blood collected. Flushed with 10 mL NS. Patient maintains SpO2 saturation greater than 95% on room air. 03:02 Extrem Venous W Compression Leobardo US In Process Unspecified. EDMS 03:02 Notified ED physician of a critical lab result(s). Magnesium 0.9. vc1 06:16 Vibha Ambrose MD is Referral Physician. sp4 06:33 IV discontinued, intact, bleeding controlled, No redness/swelling at site. Pressure ay dressing applied. Administered Medications: 03:35 Drug: Calcium Gluconate IVPB 1 grams IVPB once over 60 mins; (mix in NS 100 mL) Route: bm8 IVPB; Infused Over: 60 mins; Site: right antecubital; 06:35 Follow up: Response: No adverse reaction; IV Status: Completed infusion ay 03:36 Drug: Potassium PO Effervescent Tablet 50 mEq PO once; dissolve in 4 ounces of water or bm8 juice Route: PO; 06:35 Follow up: Response: No adverse reaction ay Medication: 02:11 VIS not applicable for this client. bm8 Outcome: 06:16 Discharge ordered by . sp4 06:33 Discharged to home ambulatory, ay 06:33 Condition: stable 06:33 Discharge instructions given to patient, Instructed on discharge instructions, follow up and referral plans. Demonstrated understanding of instructions, follow-up care, 06:34 Patient left the ED. ay Signatures: Dispatcher [employer] EDDC Carolann Black RN RN 1 Ryan Greenwood MD MD sp4 Graciela Garza 2 Zak Aleman, RN RN bm8 Ty Palacio, RN RN ay
[2024-07-20 07:43] VITALS: TEMP 98.4
[2024-07-20 07:45] VITALS: O2SAT 98
[2024-07-20 07:46] VITALS: BP 157/83
== END 2024-07-20 06:34 | disposition home or self-care (01) ==
LOC: ER 01:33
DX: R60.0 Localized edema (principal); I50.9 Heart failure, unspecified; I10 Essential (primary) hypertension; Z95.1 Presence of aortocoronary bypass graft; Z95.0 Presence of cardiac pacemaker
CPT/HCPCS: 96365; 85025; 81001; 80048; 36415; 83735; 85610; 80076; 84443; 84484; 84439; 83880; 71045; 93970; 99285; 96366; J0612